=== PATIENT | female | born 1955 | race Caucasian/White ===

== ENCOUNTER 2018-05-22 07:45 | Observation (INO) | payer BC, OTHER ==
[2018-05-05 16:01] VITALS: BMI 33.0
[2018-05-12 09:28] VITALS: BMI 33.0
--- NOTE | 2018-05-12 09:58 | PAT Medication Instructions ---
Service Date May 12, 2018. Current Home Medication List Alendronate/Cholecalciferol (Fosamax+D 70MG/2800 Iu), 1 TABLET PO WK Aspirin (Aspirin Ec), 81 MG PO QAM Atorvastatin (Lipitor), 10 MG PO QAM Baclofen (Lioresal), 10 MG PO TID PRN for PRN Cholecalciferol (Vitamin D 1000 Unit), 2,000 INTER.UNIT PO QAM Hydrocodone/Acetaminophen 10MG/325MG ([place] 10MG/325MG), 1 TAB PO TID PRN for N Ibuprofen (Motrin), 800 MG PO PRN PRN for Pain Lisinopril (Zestril), 20 MG PO QAM Ondansetron Hcl (Zofran), 5 ML PO Q4H PRN for Nausea Venlafaxine Hcl (Venlafaxine Hcl Er), 150 MG PO QAM Venlafaxine Hcl (Effexor Xr), 75 MG PO QAM Medication Instructions For Your Scheduled Surgery - Check with surgeon for instructions: Ibuprofen (Motrin), 800 MG PO PRN PRN for Pain - Continue as directed: Alendronate/Cholecalciferol (Fosamax+D 70MG/2800 Iu), 1 TABLET PO WK - Hold the following medications the morning of surgery: Lisinopril (Zestril), 20 MG PO QAM Baclofen (Lioresal), 10 MG PO TID PRN for PRN Cholecalciferol (Vitamin D 1000 Unit), 2,000 INTER.UNIT PO QAM - Take the following medications the morning of surgery with a sip of water: Aspirin (Aspirin Ec), 81 MG PO QAM Atorvastatin (Lipitor), 10 MG PO QAM Hydrocodone/Acetaminophen 10MG/325MG ([place] 10MG/325MG), 1 TAB PO TID PRN for N (okay to take up to 4 hours prior to surgery if needed) Ondansetron Hcl (Zofran), 5 ML PO Q4H PRN for Nausea (if needed) Venlafaxine Hcl (Venlafaxine Hcl Er), 150 MG PO QAM Venlafaxine Hcl (Effexor Xr), 75 MG PO QAM Buspirone - Take the following medications as scheduled the night before surgery: Ondansetron Hcl (Zofran), 5 ML PO Q4H PRN for Nausea Hydrocodone/Acetaminophen 10MG/325MG ([place] 10MG/325MG), 1 TAB PO TID PRN for N Baclofen (Lioresal), 10 MG PO TID PRN for PRN (if needed) Buspirone If you have any questions please call us at [phone] or [phone] or [phone]
[2018-05-12 10:05] LABS: BASO % 0.4 %; BASO ABS # 0.04 K/uL (0-0.2); EOS % 3.4 %; EOS ABS # 0.36 K/uL (0-0.5); HEMATOCRIT 42.8 % (37-47); HEMOGLOBIN 14.3 g/dL (12.0-16.0); IG# 0.02 K/uL (0.00-0.02); LYMPH % 26.8 %; LYMPH ABS # 2.81 K/uL (1.2-3.4); MEAN CELL VOLUME 93.9 fL (80-100); MEAN CORPUSCULAR HEMOGLOBIN 31.4 pg (25-34); MEAN CORPUSCULAR HGB CONC 33.4 g/dl (32-36); MEAN PLATELET VOLUME 9.1 fL (7.4-10.4); MONO % 7.8 %; MONO ABS # 0.82 K/uL (0.11-0.59); NEUT % 61.4 %; NEUT ABS # 6.44 K/uL (1.4-6.5); PLATELET COUNT 345 K/uL (130-400); RED CELL DISTRIBUTION WIDTH CV 13.4 % (11.5-14.5); WHITE BLOOD COUNT 10.49 K/uL (4.8-10.8)
[2018-05-12 10:13] LABS: INR 0.9 (0.9-1.1); PTT PATIENT 24.6 SECONDS (21.0-31.0)
--- NOTE | 2018-05-12 10:18 | DIAGNOSTIC IMAGING REPORT ---
CHEST 2 VIEWS ROUTINE CLINICAL HISTORY: PAT preoperative evaluation COMPARISON STUDY: 09/21/2013 FINDINGS: Unchanged postoperative change to the cervical and thoracic spine. Lungs are clear. Diaphragms are smooth. Kyphoplasty is noted in the low thoracic region. IMPRESSION: Chronic and postoperative change. No acute process. The above report was generated using voice recognition software. It may contain grammatical, syntax or spelling errors. Electronically signed by: Joey Vang M.D. 05/12/2018 10:17 AM Dictated Date/Time: 05/12/2018 10:16 AM
[2018-05-12 12:25] LABS: CALCIUM 8.8 mg/dl (8.5-10.1); CREATININE 0.56 mg/dl (0.60-1.20); POTASSIUM 4.3 mmol/L (3.5-5.1)
[~2018-05-22] VITALS: Ht 157.5 cm; Wt 82.7 kg
[2018-05-22] VITALS (10 sets, daily range): BP systolic 117–161; BP diastolic 70–95; PULSE 70–87; TEMP 36.4–36.9; O2SAT 95–100; Ht 157.5 cm; Wt 82.7 kg
[~2018-05-22 07:45] MED LIST: ACETAMINOPHEN 500 MG TAB PO SCH; ASPI81TA28 PO; ATOR10TA82 PO; BACL10TA PO; CEFAZOLIN 2000MG IV PUSH 15 ML IV SCH; CHOL100027 PO; CLINDAMYCIN 600 MG/54 ML D5W 54 ML IV SCH; CeleBREX 200 MG CAP PO SCH; FSMD/70 PO; GABAPENTIN 600 MG PO SCH; HYDR-4079 PO; IBUP-1428 PO; LACTATED RINGER'S 1000ML 1,000 ML IV SCH; LISI-725 PO; ONDA10SO PO; VENL150T33 PO; VENL75CA88 PO
[2018-05-22] MEDS ORDERED: BUSP15TA70 PO (08:35)
[2018-05-22] MEDS ORDERED: ONDANSETRON INJ 2 MG/ML 2 ML VIAL ONE ×2 (09:18→11:00)
[2018-05-22] MEDS ORDERED: NURSING VERBAL MED ORDER ONE (09:30)
[2018-05-22] MEDS ORDERED: MIDAZOLAM HCL 1 MG/ML 2ML VIAL ONE (09:32)
[2018-05-22] MEDS ORDERED: FENTANYL CITRATE INJ 50 MCG/1 ML 2 ML VIAL ONE ×4 (09:32→11:30)
--- NOTE | 2018-05-22 09:54 | History & Physical Bridge Note ---
H&P Re-Evaluation Bridge Note: I have examined the patient, reviewed the History & Physical and in the interval since the performance of the History & Physical I have noted the following changes of clinical significance: No changes noted
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
[2018-05-22] MEDS ORDERED: PROMETHAZINE HCL INJ 6.25 MG in SODIUM CHLORIDE 0.9% 50ML 50 ML IV PRN (10:00)
[2018-05-22] MEDS ORDERED: ONDANSETRON INJ 2 MG/ML 2 ML VIAL IV PRN (10:00)
[2018-05-22] MEDS ORDERED: ATROPINE SULFATE 0.1 MG/ML 5ML SYR IV PRN (10:00)
[2018-05-22] MEDS ORDERED: EpHEDrine SULFATE INJ 50 MG/ML AMP IV PRN (10:00)
[2018-05-22] MEDS ORDERED: BUPIVACAINE/EPINEPHRINE 0.5% MPF 1:200,000 30 ML VIAL ONE (10:12)
[2018-05-22] MEDS ORDERED: BACITRACIN 50000 UNIT VIAL ONE (10:13)
[2018-05-22] MEDS ORDERED: HYDROmorphone INJ 2 MG/ML SYR/VIAL ONE ×3 (10:16→11:33)
[2018-05-22] MEDS ORDERED: SODIUM CHLORIDE 0.9% PF 50 ML VIAL ONE (10:43)
[2018-05-22] MEDS ORDERED: BUPIVACAINE 0.5 % 5 MG/1 ML PF 10ML VIAL ONE ×2 (10:43→10:52)
[2018-05-22] MEDS ORDERED: BUPIVACAINE LIPOSOME 1/3% 266 MG/20 ML VIAL ONE (10:43)
[2018-05-22] MEDS ORDERED: PROPOFOL IV EMULSION 10 MG/ML 20 ML VIAL ONE (11:00)
[2018-05-22] MEDS ORDERED: LIDOCAINE HCL 2% 2 ML VIAL (20MG/ML) ONE (11:00)
[2018-05-22] MEDS ORDERED: DEXAMETHASONE SOD INJ 4 MG/ML VIAL ONE (11:00)
[2018-05-22] MEDS ORDERED: PHENYLEPHRINE 100MCG/ML 5ML SYR ONE ×2 (11:00→11:33)
[2018-05-22] MEDS ORDERED: FLOSEAL HEMOSTATIC MATRIX 10ML TOP ONE (11:15)
[2018-05-22] MEDS ORDERED: ARTIFICIAL TEARS OP OINT 3.5 GM TUBE ONE (11:30)
[2018-05-22] MEDS ORDERED: DO NOT ADMINISTER FLU VACCINE PRN (11:30)
[2018-05-22] MEDS ORDERED: LORAZEPAM 1 MG TAB PO PRN (11:30)
[2018-05-22] MEDS ORDERED: LORAZEPAM INJ 1 MG in SYRINGE 0 ML IV PRN (11:30)
[2018-05-22] MEDS ORDERED: DO NOT ADMINISTER PNEUMOCOCCAL VACCINE PRN (11:30)
[2018-05-22] MEDS ORDERED: ACETAMINOPHEN 500 MG TAB PO PRN (11:30)
[2018-05-22] MEDS ORDERED: MAGNESIUM HYDROXIDE SUSP 30 ML UDC PO PRN (11:30)
--- NOTE | 2018-05-22 11:30 | [facility] Operative Report ---
Operative Report Operative Date May 22, 2018. Pre-Operative Diagnosis Lumbar Spinal Stenosis with Neurogenic Claudication L3-L4 Post-Operative Diagnosis Lumbar Spinal Stenosis with Neurogenic Claudication L3-L4 Procedure(s) Performed 1. Lumbar decompression bilateral medial facetectomies L3-4. #2 placement of Coflex 14 mm in height in the interlaminar space at L3-4. Surgeon Dr. Yasmine Arias Activity Manager Surgeon(s) Daniela Phan PA-C Estimated Blood Loss 50ml Findings Severe spinal stenosis Specimens none per surgeon Anesthesia Type General Description of Procedure Patient was met with preoperatively case discussed all questions addressed. After informed consent obtained patient was taken to the operative suite underwent intubation and placed in the prone position on the Abelardo table on top of the [place] frame. All bony prominences were well-padded eyes inspected to ensure no external pressure placed upon but this point the lumbar spine was prepped and draped in normal sterile fashion. Sharp dissection with the assistance of Bovie cautery was performed down to and exposing the interlaminar space at L3-4 bilaterally. Then performed a midline decompression clinic bilateral medial facetectomies addressing severe central lateral recess stenosis as well as epidural lipomatosis. After this was complete placed a 14 mm Coflex in the interlaminar space at L3-4. It was crimped into position. I then injected approximately 80 cc of Exparel into the musculature. A 10 round MARI drain was then inserted. Incision was then closed with 1 Vicryl fascia 2-0 Vicryl subcutaneously and 4 Monocryl for fast closure Steri-Strips sterile dressings placed. Patient weakened taken to PACU in stable condition. Please note Daniela Ornelas was present throughout the entire procedure involved in patient positioning complex portions of the surgery and final skin closure. I attest to the content of the Intraoperative Record and any orders documented therein. Any exceptions are noted below.
[2018-05-22] MEDS ORDERED: GLYCOPYRROLATE INJ 0.2 MG/ML VIAL ONE (11:33)
[2018-05-22] MEDS ORDERED: KETOROLAC TROMETHAMINE 30 MG/ML VIAL ONE (11:33)
[2018-05-22] MEDS ORDERED: NEOSTIGMINE METHYLSULFATE 1 MG/ML 10ML VIAL ONE (11:33)
[2018-05-22] MEDS ORDERED: ESMOLOL HCL 10 MG/ML 10 ML VIAL ONE (11:33)
[2018-05-22] MEDS: FENTANYL CITRATE INJ 50 MCG/1 ML 2 ML VIAL IV PRN ×3 (11:58→12:12)
--- NOTE | 2018-05-22 12:14 | Anesthesiology Progress Note ---
Anesthesia Post Op Note Date & Time May 22, 2018 at 12:14 Vital Signs Pain Intensity: 8 Vital Signs Past 12 Hours Date Time Temp Pulse Resp B/P (MAP) Pulse Ox O2 Delivery O2 Flow Rate FiO2 05/22/18 08:42 36.9 82 18 161/95 96 Room Air Notes Mental Status: alert / awake / arousable, participated in evaluation Pt Amnestic to Procedure: Yes Nausea / Vomiting: adequately controlled Pain: adequately controlled Airway Patency, RR, SpO2: stable & adequate BP & HR: stable & adequate Hydration State: stable & adequate Anesthetic Complications: no major complications apparent
[2018-05-22] MEDS ORDERED: HYDROmorphone INJ 1 MG/ML SYR ONE (13:10)
[2018-05-22] MEDS ORDERED: RXC5 PO (14:25)
--- NOTE | 2018-05-22 14:25 | Discharge Instructions ---
Discharge Instructions Date of Service May 22, 2018. Admission Reason for Admission: Lumbar Spinal Stenosis Discharge Discharge Diagnosis / Problem: lumbar stenosis Discharge Goals Goal(s): Improve function Activity Recommendations Activity Limitations: per Instructions/Follow-up section . Instructions / Follow-Up Instructions / Follow-Up ACTIVITY RECOMMENDATIONS: SELF CARE INSTRUCTIONS AFTER THORACIC/LUMBAR FUSIONS 1. You may walk to your tolerance. It is good exercise for your legs and back. Expect some back and intermittent leg aches and pains. 2. You may perform "counter-top" level activities (make a sandwich, lisandro with a project, etc.). 3. No bending or lifting of more than 10 pounds or back twisting of any nature (roll like a log when turning in bed). 4. You may ride in a car for 20-30 minutes at a time. No driving until after your first visit with your doctor. 5. Frequent changes of position and restricting sitting to 30 minutes at a time will help limit the amount of back spasms and stiffness you may experience. 6. You may discontinue the use of ambulatory aids (cane, crutches, etc.) once your strength and confidence allow. 7. You may packaging coordinator the shower and let water strike your incision when you arrive home at least once daily. Do not take a tub bath, sit in a hot tub or go into a swimming pool until after your first recheck in the office. SPECIAL CARE INSTRUCTIONS: VERY IMPORTANT TO READ AND REVIEW A. Your surgical incision has been closed with a cosmetic suture under the skin that will dissolve in about 6 weeks. In 14 days, you can use a pair of clean scissors and cut the suture that is left outside of the skin at the ends of your incision. 1. The small skin tapes can be removed 7 days after surgery if they have not fallen off by that point. 2. You may keep the wound open to air as much as possible to promote healing after post-op day number 5 unless told otherwise by your doctor. 3. If you think the wound looks like it is becoming infected (redness or worsening drainage) and/or you are experiencing fever, chill or worsening back pain and muscle spasms, contact the office so that we may evaluate you as soon as possible. B. Complications are uncommon, but please contact us if you have any signs or symptoms of: 1. wound infection (fever higher than 102.5 degrees F, redness, separation of wound, drainage, or increasing pain from the incision) 2. blood clots in legs (pain, swelling, redness and warmth in legs) 3. urinary tract infection (fever higher than 102.5 degrees F, burning upon urination or increased frequency of urination) 4. nerve problems (inability to walk on your toes or heels, numbness, loss of bowel or bladder control) 5. any other symptoms that concern you C. Please call the office at if you have any concerns or questions about your operation or recovery. D. No smoking! Smoking drastically decreases the chance of a solid fusion. E. Do not take any anti-inflammatory medications (Indocin, Advil, Motrin, Aspirin, Naprosyn, etc.) as these may inhibit the chance of a solid fusion. Tylenol is okay to take for pain. MANAGING PAIN AFTER SPINAL SURGERY 1. Narcotic medication is intended for short-term use and will be provided for surgical pain. Surgical pain usually lasts for a period of 4-6 weeks. Narcotic medication includes Percocet, Vicodin, Darvocet, Tylenol #3 or Lortab. 2. Longer-term pain is more appropriately treated with non-narcotic medication such as Tylenol ES. 3. Muscle spasm is not appropriately treated with narcotics. Muscle relaxers such as Soma, Flexeril or Skelaxin can be used along with Tylenol ES. 4. Remember that we all live with some "aches and pains". This is not unusual or uncommon after an injury or as we get older. a. Back pain is expected and may include muscle spasms for 4 to 6 weeks after surgery. The pain should gradually improve. If the pain worsens for no apparent reason, please contact the office. b. Intermittent leg pain may also be experienced and should not be concerned about unless it worsens for no apparent reason. If so, please contact the office. 5. We will provide appropriate medication within the normal guidelines of their prescribed use. We will also be very cautious and aware of potential abuse and extended duration of patients' medication needs. a. Pain medications are for your comfort and to assist with sleep and rest so that the tissue can heal. They are not provided in order to return to normal activity and should not be used through the day. To do so or worsening pain at night can result from ongoing tissue damage and development of tolerance to the prescribed medicine. 6. Please allow 2-3 days to process refills. Prescriptions will not be mailed but must be picked up at the office. FOLLOW UP VISIT: Keep your scheduled follow-up appointment. Any questions, please call the office at . Current Hospital Diet Patient's current hospital diet: Regular Diet Discharge Diet Recommended Diet: Regular Diet Procedures Procedures Performed: 1. Lumbar decompression bilateral medial facetectomies L3-4. #2 placement of Coflex 14 mm in height in the interlaminar space at L3-4. Pending Studies Studies pending at discharge: no Medical Emergencies . Who to Call and When: Medical Emergencies: If at any time you feel your situation is an emergency, please call 911 immediately. . Non-Emergent Contact Non-Emergency issues call your: Primary Care Provider . "Provider Documentation" section prepared by Juan David Arias. .
--- NOTE | 2018-05-22 14:26 | Discharge Instructions ---
Discharge Instructions Date of Service May 22, 2018. Admission Reason for Admission: Lumbar Spinal Stenosis Discharge Discharge Diagnosis / Problem: lumbar stenosis Discharge Goals Goal(s): Improve function Activity Recommendations Activity Limitations: per Instructions/Follow-up section . Instructions / Follow-Up Instructions / Follow-Up ACTIVITY RECOMMENDATIONS: SELF CARE INSTRUCTIONS AFTER A LAMINECTOMY 1. No prolonged sitting (less than 30 minutes for the first 3 weeks after surgery). 2. No bending, lifting more than 5 pounds, or twisting (roll like a log when turning in bed). 3. You may shower 3 days after surgery if no drainage from wound. Thoroughly dry wound. Do not soak in the tub. 4. Please walk as much as you can for exercise. Gradually increase the distance that you walk as your endurance increases. 5. You may drive in 7-10 days if you are comfortable and no longer requiring pain medications. SPECIAL CARE INSTRUCTIONS: VERY IMPORTANT TO READ AND REVIEW A. Your surgical incision has been closed with a cosmetic suture under the skin that will dissolve in about 6 weeks. In 14 days, you can use a pair of clean scissors and cut the suture that is left outside of the skin at the ends of your incision. B. Complications are uncommon, but please contact us if you have any signs or symptoms of: 1. wound infection (fever higher than 102.5 degrees F, redness, separation of wound, drainage, or increasing pain from the incision) 2. blood clots in legs (pain, swelling, redness and warmth in legs) 3. urinary tract infection (fever higher than 102.5 degrees, burning upon urination or increased frequency of urination) 4. nerve problems (inability to walk on your toes or heels, numbness, loss of bowel or bladder control) 5. any other symptoms that concern you. C. Please call the office at if you have any concerns or questions about your operation or recovery. MANAGING PAIN AFTER SPINAL SURGERY 1. Narcotic medication is intended for short-term use and will be provided for surgical pain. Surgical pain usually lasts for a period of 4-6 weeks. Narcotic medication includes Percocet, Vicodin, Darvocet, Tylenol #3 or Lortab. 2. Longer-term pain is more appropriately treated with non-narcotic medication such as Tylenol ES. 3. Muscle spasm is not appropriately treated with narcotics. Muscle relaxers such as Soma, Flexeril or Skelaxin can be used along with Tylenol ES. 4. Remember that we all live with some "aches and pains". This is not unusual or uncommon after an injury or as we get older. 5. We will provide appropriate medication within the normal guidelines of their prescribed use. We will also be very cautious and aware of potential abuse and extended duration of patients' medication needs. 6. Please allow 2-3 days to process refills. Prescriptions will not be mailed but must be picked up at the office. FOLLOW UP VISIT: Keep your scheduled follow-up appointment. Any questions, please call the office at . Current Hospital Diet Patient's current hospital diet: Regular Diet Discharge Diet Recommended Diet: Regular Diet Procedures Procedures Performed: 1. Lumbar decompression bilateral medial facetectomies L3-4. #2 placement of Coflex 14 mm in height in the interlaminar space at L3-4. Pending Studies Studies pending at discharge: no Medical Emergencies . Who to Call and When: Medical Emergencies: If at any time you feel your situation is an emergency, please call 911 immediately. . Non-Emergent Contact Non-Emergency issues call your: Primary Care Provider . "Provider Documentation" section prepared by Juan David Arias. .
--- NOTE | 2018-05-22 14:31 | DIAGNOSTIC IMAGING REPORT ---
INTRAOPERATIVE RADIOGRAPHS CLINICAL HISTORY: L3-L4 spinal fusion. Fluoroscopy time: 8 seconds. FINDINGS: 2 spot fluoroscopic views of the lumbar spine are presented. A coflex implant device is seen posteriorly at the L3-L4 level. The orthopedic hardware appears intact. IMPRESSION: Intraoperative image from lumbar spinal surgery as above. Electronically signed by: Nikolas Ricks M.D. 05/22/2018 2:29 PM Dictated Date/Time: 05/22/2018 2:28 PM
[2018-05-22] MEDS: SODIUM CHLORIDE 0.9% 1000ML 1,000 ML IV SCH (14:37)
[2018-05-22] MEDS ORDERED: IV FLUIDS COMPLETED PRN (14:45)
[2018-05-22] MEDS: KETOROLAC TROMETHAMINE 30 MG/ML VIAL IV. PRN ×2 (15:23→21:31)
[2018-05-22] MEDS: HYDROmorphone INJ 1 MG/ML SYR IV PRN ×2 (16:20→19:24)
[2018-05-22] MEDS: CLINDAMYCIN IV 600 MG in DEXTROSE 5% 50ML 50 ML IV SCH (18:35)
[2018-05-22] MEDS: BACLOFEN 10 MG TAB PO PRN (19:30)
[2018-05-22] MEDS: ONDANSETRON INJ 2 MG/ML 2 ML VIAL IV PRN (20:29)
[2018-05-22] MEDS: BusPIRone 15 MG TAB PO SCH (20:30)
[2018-05-22] MEDS: DOCUSATE SODIUM 100 MG CAP PO SCH (20:30)
[2018-05-22] MEDS: OXYCODONE HCL IR 5 MG TAB (IMMEDIATE RELEASE) PO PRN (23:13)
[2018-05-23] MEDS: HYDROmorphone INJ 1 MG/ML SYR IV PRN ×3 (00:35→20:06)
[2018-05-23] MEDS: SODIUM CHLORIDE 0.9% 1000ML 1,000 ML IV SCH (02:06)
[2018-05-23] MEDS: CLINDAMYCIN IV 600 MG in DEXTROSE 5% 50ML 50 ML IV SCH ×2 (02:06→09:01)
[2018-05-23 02:51] VITALS: BP 160/83; PULSE 92; TEMP 36.7; O2SAT 95
[2018-05-23] MEDS: OXYCODONE HCL IR 5 MG TAB (IMMEDIATE RELEASE) PO PRN ×5 (03:32→23:07)
[2018-05-23] MEDS: KETOROLAC TROMETHAMINE 30 MG/ML VIAL IV. PRN ×2 (03:32→16:07)
[2018-05-23 06:59] VITALS: BP 152/80; PULSE 77; TEMP 36.9; O2SAT 98
--- NOTE | 2018-05-23 08:14 | Anesthesiology Progress Note ---
Anesthesia Post Op Note Date & Time May 23, 2018 at 08:14 Vital Signs Vital Signs Past 12 Hours Date Time Temp Pulse Resp B/P (MAP) Pulse Ox O2 Delivery O2 Flow Rate FiO2 05/23/18 06:59 36.9 77 18 152/80 (104) 98 Room Air 05/23/18 02:51 36.7 92 17 160/83 (108) 95 Room Air 05/22/18 23:20 Room Air 05/22/18 22:54 36.6 74 16 138/72 (94) 95 Room Air Notes Mental Status: alert / awake / arousable, participated in evaluation Pt Amnestic to Procedure: Yes Nausea / Vomiting: adequately controlled Pain: adequately controlled Airway Patency, RR, SpO2: stable & adequate BP & HR: stable & adequate Hydration State: stable & adequate Anesthetic Complications: no major complications apparent
--- NOTE | 2018-05-23 08:35 | Progress Note ---
Progress Note Date of Service May 23, 2018. Progress Note Patient having considerable back pain today. Still some right anterior thigh pain with hip flexion. Otherwise her vital signs are stable. Neurologic she is intact testing. Assessment status post decompression. Plan at this time will DC the drain today initiate physical therapy anticipate home tomorrow.
[2018-05-23] MEDS: VENLAFAXINE HCL XR 150 MG CAPXR PO SCH (09:00)
[2018-05-23] MEDS: VENLAFAXINE HCL XR 75 MG CAPXR PO SCH (09:00)
[2018-05-23] MEDS: BusPIRone 15 MG TAB PO SCH ×2 (09:00→21:58)
[2018-05-23] MEDS: ATORVASTATIN 10 MG TAB PO SCH (09:00)
[2018-05-23] MEDS: LISINOPRIL 20 MG TAB PO SCH (09:01)
[2018-05-23] MEDS: DOCUSATE SODIUM 100 MG CAP PO SCH ×2 (09:09→21:58)
[2018-05-23 10:57] VITALS: BP 149/82; PULSE 72; TEMP 36.9; O2SAT 95
[2018-05-23 15:41] VITALS: BP 100/59; PULSE 73; TEMP 36.9; O2SAT 96
[2018-05-23] MEDS: ONDANSETRON INJ 2 MG/ML 2 ML VIAL IV PRN (15:46)
[2018-05-23 16:00] VITALS: O2SAT 96
[2018-05-23] MEDS: BACLOFEN 10 MG TAB PO PRN (20:07)
[2018-05-23 22:50] VITALS: BP 120/77; PULSE 77; TEMP 36.9; O2SAT 97
[2018-05-24] MEDS: BACLOFEN 10 MG TAB PO PRN ×2 (04:40→08:53)
[2018-05-24] MEDS: OXYCODONE HCL IR 5 MG TAB (IMMEDIATE RELEASE) PO PRN ×2 (04:41→11:24)
[2018-05-24] MEDS ORDERED: BISACODYL 5 MG TABEC PO PRN (06:00)
[2018-05-24] MEDS ORDERED: BISACODYL 10 MG SUPP PR PRN (06:00)
[2018-05-24 07:09] VITALS: BP 181/85; PULSE 73; TEMP 36.9; O2SAT 96
[2018-05-24] MEDS: HYDROmorphone INJ 1 MG/ML SYR IV PRN (07:55)
[2018-05-24] MEDS: ATORVASTATIN 10 MG TAB PO SCH (08:53)
[2018-05-24] MEDS: DOCUSATE SODIUM 100 MG CAP PO SCH (08:53)
[2018-05-24] MEDS: LISINOPRIL 20 MG TAB PO SCH (08:53)
[2018-05-24] MEDS: BusPIRone 15 MG TAB PO SCH (08:53)
[2018-05-24] MEDS: VENLAFAXINE HCL XR 150 MG CAPXR PO SCH (08:53)
[2018-05-24] MEDS: VENLAFAXINE HCL XR 75 MG CAPXR PO SCH (08:53)
[2018-05-24 10:33] VITALS: BP 181/85; PULSE 73; TEMP 36.9; O2SAT 96
--- NOTE | 2018-05-24 13:25 | Discharge Summary ---
Orthopedic Discharge Summary Admission Date/Reason May 22, 2018 at 11:33 Lumbar Spinal Stenosis. Discharge Date/Disposition May 24, 2018 Home Diagnosis Principal Diagnosis: Lumbar spinal stenosis Admission Physical Exam As per Admitting History & Physical. Hospital Course Patient underwent lumbar decompression tolerated this well was taken to the orthopedic floor postoperatively. Postop day #1 she was up and amatory physical therapy progress nicely and subsequently was discharged home on postop day #2 discharge orders and instructions can be found in the chart for further review. Discharge Instructions Please refer to the electronic Patient Visit Report (Discharge Instructions) for additional information.
[2018-05-25] MEDS ORDERED: POLYETHYLENE (MIRALAX) 17 GM PACK PO SCH (09:00)
== END 2018-05-24 11:46 | disposition home or self-care (01) ==
LOC: C.ACU 07:45 → C.3E 11:33 → ENRESERV 12:25
PROVIDERS: ADMIT Orthopaedic Surgery Orthopaedic Surgery of the Spine; ATTEND Orthopaedic Surgery Orthopaedic Surgery of the Spine
DX: M48.061 Spinal stenosis, lumbar region without neurogenic claudication (principal); J44.9 Chronic obstructive pulmonary disease, unspecified; G47.33 Obstructive sleep apnea (adult) (pediatric); M19.90 Unspecified osteoarthritis, unspecified site; E78.5 Hyperlipidemia, unspecified; F10.10 Alcohol abuse, uncomplicated; G89.4 Chronic pain syndrome; F32.9 Major depressive disorder, single episode, unspecified; Z86.010 Personal history of colon polyps; Z90.49 Acquired absence of other specified parts of digestive tract; Z90.710 Acquired absence of both cervix and uterus; Z88.0 Allergy status to penicillin

== ENCOUNTER 2018-11-10 05:57 | Observation (INO) ==
--- NOTE | 2018-10-19 09:03 | PAT Medication Instructions ---
Medication Instructions Date of Service October 19, 2018 Home Medications alendronate-vitamin D3 1 tab PO WK aspirin [Aspirin Low Dose] 81 mg PO QAM atorvastatin 10 mg PO QAM baclofen 10 mg PO TID NEEDED buspirone 15 mg PO BID cholecalciferol (vitamin D3) 2,000 unit PO QAM hydrocodone-acetaminophen 2 tab PO Q8H NEEDED ibuprofen 800 mg PO TID NEEDED lisinopril 20 mg PO QAM ondansetron HCl 4 mg PO QID NEEDED venlafaxine 75 mg PO QAM venlafaxine 150 mg PO QAM Continue as directed alendronate-vitamin D3 1 tab PO WK ASK your surgeon for instructions ibuprofen 800 mg PO TID NEEDED ASK your prescriber and surgeon aspirin [Aspirin Low Dose] 81 mg PO QAM DO NOT take the morning of surgery baclofen 10 mg PO TID NEEDED cholecalciferol (vitamin D3) 2,000 unit PO QAM lisinopril 20 mg PO QAM Take morning of surgery With a small sip of water, OTHERWISE NOTHING TO EAT OR DRINK AFTER MIDNIGHT: atorvastatin 10 mg PO QAM buspirone 15 mg PO BID hydrocodone-acetaminophen 2 tab PO Q8H NEEDED (stop 4 hours before surgery) ondansetron HCl 4 mg PO QID NEEDED venlafaxine 75 mg PO QAM venlafaxine 150 mg PO QAM Take evening before surgery baclofen 10 mg PO TID NEEDED buspirone 15 mg PO BID hydrocodone-acetaminophen 2 tab PO Q8H NEEDED ondansetron HCl 4 mg PO QID NEEDED Other Notes If you have any questions please call us at [phone] or [phone] or [phone] or [phone]
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
--- NOTE | 2018-10-19 12:10 | XRay Report ---
XR chest Pre-admission PA/Lat CLINICAL HISTORY: pat preoperative evaluation COMPARISON STUDY: 09/21/2013 FINDINGS: The bones soft tissues and hemidiaphragms are normal. The cardiomediastinal silhouette is n ormal. The lungs are clear. The pulmonary vasculature is normal. IMPRESSION: Negative chest. The above report was generated using voice recognition software. It may contain grammatical, syntax or spelling errors. Electronically signed by: Joey Vang M.D. 10/19/2018 12:09 PM
[2018-10-19 13:19] LABS: Basophils # (auto) 0.03 K/uL (0-0.2); Basophils % (auto) 0.3 %; Eosinophils # (auto) 0.34 K/uL (0-0.5); Eosinophils % (auto) 3.4 %; Hematocrit (blood only) 43.8 % (37-47); Hemoglobin 14.3 g/dL (12.0-16.0); Immature Granulocytes # (auto) 0.02 K/uL (0.00-0.02); Immature Granulocytes % (auto) 0.2 %; Lymphocytes # (auto) 2.93 K/uL (1.2-3.4); Mean Corpuscular Hgb Conc 32.6 g/dL (32-36); Mean Corpuscular Volume 96.3 fL (80-100); Mean Platelet Volume 9.8 fL (7.4-10.4); Monocytes # (auto) 0.74 K/uL (0.11-0.59); Monocytes % (auto) 7.3 %; Neutrophils # (auto) 6.04 K/uL (1.4-6.5); Neutrophils % (auto) 59.8 %; Platelet Count 285 K/uL (130-400); RDW Coefficient of Variation 13.5 % (11.5-14.5); Red Blood Count 4.55 M/uL (4.2-5.4)
[2018-10-19 13:23] LABS: Appearance Urine Clear (Clear); Bacteria Urine Automated Negative (Negative); Bilirubin Urine Negative (Negative); Cast Urine Automated 0 /lpf (0-5); Color Urine Yellow; Glucose Urine UA Negative (Negative); Ketones Urine Negative (Negative); Leukocyte Esterase Urine Trace (Negative); Nitrite Urine Negative (Negative); Protein Urine Negative (Negative); Specific Gravity Urine 1.019 (1.000-1.030); Urobilinogen Urine Negative (Negative)
[2018-10-19 13:30] LABS: Calcium 9.1 mg/dl (8.5-10.1); Creatinine Clr Calc Pharmacy 96.4 ml/min; Est GFR (African American) 110.4; Est GFR (Non-African American) 95.3; Potassium 4.2 mmol/L (3.5-5.1)
[2018-11-10] MEDS ORDERED: ACETAMINOPHEN 500 MG TAB PO SCH (06:00)
[2018-11-10] MEDS ORDERED: LACTATED RINGER'S 1,000 ML IV SCH (06:00)
[2018-11-10] MEDS ORDERED: GABAPENTIN 300 MG x 2 PO SCH (06:00)
[2018-11-10] MEDS ORDERED: CeleBREX 200 MG CAP PO SCH (06:00)
[2018-11-10] MEDS ORDERED: CLINDAMYCIN 600 MG/54 ML BAG IV SCH (06:00)
[2018-11-10] MEDS ORDERED: HYDROmorphone INJ 2 MG/ML SYR/VIAL ONE (06:28)
[2018-11-10] MEDS ORDERED: fentaNYL citrate 100 MCG/2 ML VIAL ONE ×4 (06:28→08:53)
[2018-11-10] MEDS ORDERED: MIDAZOLAM HCL 1 MG/ML 2ML VIAL ONE (06:28)
[2018-11-10] MEDS ORDERED: LIDOCAINE HCL 2% 2 ML VIAL/AMP(20MG/ML) INFIL ONE (06:29)
[2018-11-10] MEDS ORDERED: ONDANSETRON INJ 2 MG/ML 2 ML VIAL ONE (06:29)
[2018-11-10] MEDS ORDERED: PROPOFOL IV EMULSION 10 MG/ML 20 ML VIAL IV ONE (06:29)
[2018-11-10] MEDS ORDERED: GLYCOPYRROLATE 0.2 MG/ML VIAL ONE (06:29)
[2018-11-10] MEDS ORDERED: NEOSTIGMINE METHYLSULFATE 1 MG/ML 10ML VIAL ONE (06:29)
[2018-11-10] MEDS ORDERED: ROCURONIUM BROMIDE 10 MG/ML 5 ML VIAL ONE (06:29)
[2018-11-10] MEDS ORDERED: DEXAMETHASONE SOD INJ 4 MG/ML VIAL ONE (06:29)
[2018-11-10] MEDS ORDERED: BACITRACIN INJ 50,000 UNIT VIAL ONE (07:03)
[2018-11-10] MEDS ORDERED: ePHEDrine sulfate 50 MG/ML AMP IV PRN (07:23)
[2018-11-10] MEDS ORDERED: HYDROmorphone INJ 2 MG/ML SYR/VIAL IV PRN (07:23)
[2018-11-10] MEDS ORDERED: ATROPINE SULFATE 0.1 MG/ML 10ML SYR IV PRN (07:23)
[2018-11-10] MEDS ORDERED: PROMETHAZINE HCL 6.25 MG in SODIUM CHLORIDE 0.9% 50 ML IV PRN (07:23)
[2018-11-10] MEDS ORDERED: ONDANSETRON INJ 2 MG/ML 2 ML VIAL IV PRN ×2 (07:23→10:39)
--- NOTE | 2018-11-10 07:35 | History & Physical Bridge Note ---
Date of Service November 10, 2018 History & Physical Bridge Note I have examined the patient, reviewed the History & Physical and in the interval since the performance of the History & Physical I have noted the following changes of clinical significance: no changes noted
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
[2018-11-10] MEDS ORDERED: PHENYLEPHRINE 100MCG/ML 5ML SYR ONE (08:25)
[2018-11-10] MEDS ORDERED: ePHEDrine sulfate 50 MG/ML SYR ONE (08:25)
[2018-11-10] MEDS ORDERED: raNITIdine HCl 25 MG/ML VIAL ONE (08:38)
[2018-11-10] MEDS ORDERED: METOCLOPRAMIDE HCL INJ 5 MG/ML 2 ML VIAL ONE (08:38)
[2018-11-10] MEDS ORDERED: FLOSEAL HEMOSTATIC MATRIX 10ML TOP ONE (08:47)
--- NOTE | 2018-11-10 08:54 | Operative Report ---
Post Operative Report Pre & Post Diagnosis Operation Date: 11/10/18 07:45 Pre-Op Diagnosis: Cervical spinal stenosis with myeloradiculopathy Post-Op Diagnosis: Same Procedure Operation Date: 11/10/18 07:45 Actual Procedures #1 anterior cervical discectomy bilateral foraminotomies C4-5 per #2 anterior cervical arthrodesis C4-5. #3 placement of globus prevail 8 mm in height at C4- 5. Surgeon Juan David Arias, Packaging Specialist Ricardo Chris Estimated Blood Loss 10 Findings Consistent with Post-Op Diagnosis Specimens None Description of Procedure Patient was met with preoperatively case discussed all questions addressed. After informed consent obtained patient was taken to the operative suite underwent intubation placed in supine position Abelardo table with a Peoples headholder. All bony prominences well-padded eyes inspected to ensure no external pressure placed upon but this point the anterior cervical spine was prepped and draped in normal sterile fashion. The assistance of fluoroscopy identified the C4-5 disc space and a transverse incision was placed along the right anterior aspect of the cervical spine overlying the region. Sharp dissection with the assistance of bipolar cautery was performed down to and exposing the anterior cervical spine at C4-5. Complete discectomy was then performed up to the uncovertebral S bilaterally. I removed all posterior annular fibers longitudinal ligament from form bilateral foraminotomies. Endplates were then burred to subcortical bleeding bone and a 8 mm globus prevail stand-alone interbody construct tapped in position. It was screwed into place and verified with fluoroscopy. Incision was then copious irrigated explored to ensure no damage to surrounding structures remaining bleeding. 10 round MARI drain inserted. The incision was then closed with 2 Vicryl in a fashion of 4 Monocryl for final skin closure Steri-Strip sterile dressings placed. Patient will continue to PACU stable condition. Please note Ricardo Chirs was present at the entire procedure involved in patient positioning complex portions of the procedure and Fransen closure. I attest to the content of the Intraoperative Record and any orders documented therein. Any exceptions are noted below.
[2018-11-10] MEDS ORDERED: ESMOLOL HCL INJ 10 MG/ML 10ML VIAL IV ONE (09:13)
[2018-11-10] MEDS: fentaNYL citrate 100 MCG/2 ML VIAL IV PRN ×4 (09:21→09:41)
--- NOTE | 2018-11-10 09:29 | Fluoroscopy Report ---
FL cervical 2-3V CLINICAL HISTORY: 63 years-old Female presenting with ACDF C4-C5. TECHNIQUE: 2 fluoroscopic image(s) recorded as part of an intraoperative procedure. COMPARISON: 04/09/2013. FINDINGS/IMPRESSION: There has been interval anterior cervical discectomy and fusion of C4-5 as well as redemonstration of anterior cervical discectomy and fusion of C5-C7. Normal anatomic alignment. Normal predental interv al. Endotracheal and nasogastric tubes project over the anterior soft tissues. Please see surgical report for further details. Fluoroscopy dosage (mGy): 0.8. Fluoroscopy time: 7.3 seconds. Number or time of fluoroscopic spot images: 0. Electronically signed by: Akil Kiser M.D. 11/10/2018 9:28 AM
--- NOTE | 2018-11-10 10:05 | Anesthesiology Progress Note ---
Date of Service November 10, 2018 Anesthesia Post Procedure Vital Signs Vital Signs: Temp Pulse Pulse Resp BP Pulse Ox 11/10/18 09:55 36.4 C L 79 18 124/69 97 11/10/18 09:45 79 14 132/66 99 11/10/18 09:35 71 14 122/69 99 11/10/18 09:25 71 16 133/83 100 11/10/18 09:15 83 16 138/75 96 11/10/18 09:08 36.0 C L 84 14 139/72 96 11/10/18 06:39 36.8 C 76 18 129/76 98 Pain Intensity Anterior Neck: Pain Intensity: 4 Notes Mental Status: alert / awake / arousable Patient Amnestic to Procedure: Yes Nausea / Vomiting: adequately controlled Pain: adequately controlled Airway Patency, RR, SpO2: stable & adequate BP & HR: stable & adequate Hydration State: stable & adequate Anesthetic Complications: no major complications apparent
[2018-11-10] MEDS ORDERED: RACEPINEPHRINE 2.25% NEBU SOLN 0.5 ML VIAL INH PRN (10:39)
[2018-11-10] MEDS ORDERED: LORazepam 0.5 MG/1 ML VIAL IV PRN (10:39)
[2018-11-10] MEDS ORDERED: HYDROCODONE/ACETAMINOPHEN 10/325 TAB PO PRN (10:39)
[2018-11-10] MEDS ORDERED: NON-FORMULARY MEDICATION (Venlafaxine Hcl 75 MG) PO SCH (10:39)
[2018-11-10] MEDS ORDERED: DiphenhydrAMINE HCL 50 MG/ML VIAL IV PRN (10:39)
[2018-11-10] MEDS ORDERED: DO NOT ADMINISTER PNEUMOCOCCAL VACCINE PRN (10:39)
[2018-11-10] MEDS ORDERED: LORazepam 0.5 MG TAB PO PRN (10:39)
[2018-11-10] MEDS ORDERED: MAGNESIUM HYDROXIDE SUSP 30 ML UDC PO PRN (10:39)
[2018-11-10] MEDS ORDERED: ONDANSETRON 4 MG TAB PO PRN (10:39)
[2018-11-10] MEDS ORDERED: DO NOT ADMINISTER FLU VACCINE PRN (10:39)
[2018-11-10] MEDS ORDERED: ACETAMINOPHEN 1,000 MG/100 ML VIAL IV PRN (10:39)
[2018-11-10] MEDS ORDERED: OXYCODONE HCL IR 5 MG TAB (IMMEDIATE RELEASE) PO PRN (10:39)
[2018-11-10] MEDS ORDERED: DEXAMETHASONE SOD PHOSPHATE 8 MG in SYRINGE 0 ML IV PRN (10:39)
[2018-11-10] MEDS ORDERED: NALOXONE HCL 0.4 MG/1 ML VIAL/CARP IV PRN (10:39)
[2018-11-10] MEDS ORDERED: SODIUM CHLORIDE 0.9% 1000ML 1,000 ML IV SCH (11:00)
[2018-11-10] MEDS ORDERED: SCOPOLAMINE 1.5 MG TDSY TD SCH (11:00)
[2018-11-10] MEDS: HYDROmorphone INJ 0.5 MG/0.5 ML SYR IV PRN ×2 (11:10→18:38)
[2018-11-10] MEDS: ASPIRIN 81 MG ECTAB PO SCH (11:56)
[2018-11-10] MEDS: BusPIRone 15 MG TAB PO SCH ×2 (11:56→20:59)
[2018-11-10] MEDS: DOCUSATE SODIUM 100 MG CAP PO SCH ×2 (11:56→20:59)
[2018-11-10] MEDS ORDERED: LARYING-O-JET KIT (LTA) ONE (12:24)
[2018-11-10] MEDS: OXYCODONE HCL IR 5 MG TAB (IMMEDIATE RELEASE) PO PRN ×3 (12:28→23:25)
[2018-11-10] MEDS: CLINDAMYCIN 600 MG in DEXTROSE 5% 50 ML IV SCH ×2 (16:34→23:25)
[2018-11-10] MEDS: CHECK SCOPOLAMINE PATCH PLACEMENT SCH ×2 (16:44→23:32)
[2018-11-10] MEDS ORDERED: COUGH DROP (SUGAR FREE) LOZ 24 LOZ/1 BOX BUCCAL PRN (17:14)
[2018-11-10] MEDS: BACLOFEN 10 MG TAB PO PRN (19:48)
[2018-11-10] MEDS ORDERED: TRAZODONE HCL 50 MG TAB PO SCH (21:00)
[2018-11-11] MEDS: HYDROmorphone INJ 0.5 MG/0.5 ML SYR IV PRN (01:32)
[2018-11-11] MEDS: OXYCODONE HCL IR 5 MG TAB (IMMEDIATE RELEASE) PO PRN (06:27)
[2018-11-11] MEDS: BACLOFEN 10 MG TAB PO PRN (07:13)
[2018-11-11] MEDS: CHECK SCOPOLAMINE PATCH PLACEMENT SCH (07:16)
[2018-11-11] MEDS: CLINDAMYCIN 600 MG in DEXTROSE 5% 50 ML IV SCH (07:56)
[2018-11-11] MEDS: ASPIRIN 81 MG ECTAB PO SCH (08:31)
[2018-11-11] MEDS: DOCUSATE SODIUM 100 MG CAP PO SCH (08:31)
[2018-11-11] MEDS: BusPIRone 15 MG TAB PO SCH (08:32)
--- NOTE | 2018-11-11 08:50 | Anesthesiology Progress Note ---
Date of Service November 11, 2018 Anesthesia Post Procedure Vital Signs Vital Signs: Temp Pulse Pulse Resp BP BP Pulse Ox 11/11/18 07:33 76 18 98 11/11/18 07:09 36.9 C 69 12 156/94 H 98 11/11/18 05:29 36.6 C 77 16 161/90 H 97 11/11/18 03:30 36.6 C 72 16 156/82 H 94 11/11/18 03:22 68 16 93 11/11/18 01:40 36.6 C 84 16 134/81 94 11/10/18 23:37 68 16 96 11/10/18 23:32 36.8 C 74 15 151/80 H 96 11/10/18 21:27 36.6 C 83 16 133/76 96 11/10/18 19:36 80 16 96 11/10/18 17:32 36.5 C 82 20 145/79 H 98 11/10/18 16:00 36.4 C L 77 20 123/74 98 11/10/18 15:52 91 H 15 100 11/10/18 13:25 36.6 C 83 18 113/72 99 11/10/18 12:24 79 16 136/81 99 11/10/18 11:25 36.3 C L 78 17 151/87 H 99 11/10/18 11:24 66 18 100 11/10/18 10:55 36.4 C L 79 18 135/80 97 11/10/18 10:25 36.6 C 74 18 127/78 97 11/10/18 10:15 78 18 130/76 99 11/10/18 10:05 82 18 125/64 99 11/10/18 09:55 36.4 C L 79 18 124/69 97 11/10/18 09:45 79 14 132/66 99 11/10/18 09:35 71 14 122/69 99 11/10/18 09:25 71 16 133/83 100 11/10/18 09:15 83 16 138/75 96 11/10/18 09:08 36.0 C L 84 14 139/72 96 Pulse Ox 11/11/18 07:33 11/11/18 07:09 11/11/18 05:29 11/11/18 03:30 11/11/18 03:22 11/11/18 01:40 11/10/18 23:37 11/10/18 23:32 11/10/18 21:27 11/10/18 19:36 11/10/18 17:32 11/10/18 16:00 97 11/10/18 15:52 11/10/18 13:25 11/10/18 12:24 11/10/18 11:25 11/10/18 11:24 11/10/18 10:55 11/10/18 10:25 97 11/10/18 10:15 11/10/18 10:05 11/10/18 09:55 11/10/18 09:45 11/10/18 09:35 11/10/18 09:25 11/10/18 09:15 11/10/18 09:08 Pain Intensity Anterior Neck: Pain Intensity: 5 Lower Back: Pain Intensity: 7 Notes Mental Status: alert / awake / arousable Patient Amnestic to Procedure: Yes Nausea / Vomiting: adequately controlled Pain: adequately controlled Airway Patency, RR, SpO2: stable & adequate BP & HR: stable & adequate Hydration State: stable & adequate Anesthetic Complications: no major complications apparent
[2018-11-11] MEDS ORDERED: LISINOPRIL 20 MG TAB PO SCH (09:00)
[2018-11-11] MEDS ORDERED: ATORVASTATIN 10 MG TAB PO SCH (09:00)
[2018-11-11] MEDS ORDERED: VENLAFAXINE HCL XR 75 MG CAPXR PO SCH (09:00)
[2018-11-11] MEDS ORDERED: KETOROLAC TROMETHAMINE 15 MG/ML VIAL IV PRN (09:47)
--- NOTE | 2018-11-11 10:21 | Discharge Summary ---
Date of Service November 11, 2018 Admission HPI Per Admitting Provider This is a 63-year-old female with chronic neck and arm symptoms. After failing extensive course of nonoperative care she is here for surgical intervention. Principal Diagnosis Cervical spinal stenosis Discharge Data Allergies Allergy/AdvReac Type Severity Reaction Status Date / Time Penicillins Allergy Unknown SWELLING Verified 11/10/18 06:31 EVERYWHERE,ITCHY Procedures Performed Operation Date: 11/10/18 07:45 Actual Procedures p C4-C5 Anterior Cervical Discectomy and Fusion(Not Applicable) - Juan David Arias DO Ordered Studies 11/10/18 07:45 FL cervical 2-3V Routine FL fluoroscopy <1hr Routine Hospital Course (1) Cervical stenosis of spinal canal: Patient is status post anterior cervical discectomy and fusion C4-5. She tolerated as well as taken to orthopedic floor postoperative. Postop day #1 MARI drain decreased appropriately arm symptoms improved. Swallowing well. No hoarseness. Subsequently discharged home. Discharge orders and instructions found in the chart for further review. Total Time Total Time Spent Total Time Spent (In Minutes): Not applicable Discharge Plan Discharge Items Patient Disposition: Home - Self-Care Reason For Visit: CERVICAL SPINAL STENOSIS Discharge Diagnosis: Cervical spinal stenosis Discharge Goals: Decrease discomfort Activity: Per 'Additional Instructions' section Non-emergency contact: Primary Care Provider Call non-emergency contact if: you have any medication questions Follow-up/Referrals: Zion Guzman [Primary Care Provider] - Diet: Regular Addtl Provider Instructions: ACTIVITY RECOMMENDATIONS: SELF CARE INSTRUCTIONS AFTER CERVICAL FUSIONS 1. No smoking. Smoking drastically decreases the chance of a solid fusion. 2. No bending, lifting more than 5 pounds, or twisting (roll like a log when turning in bed). 3. You may shower 3 days after surgery. Thoroughly dry wound. Do not soak in the tub. 4. Cervical collar: Must be worn at all times including sleeping. You may remove the brace only to bath, eat and if you are sitting in a recliner. 5. Please walk as much as you can for exercise. Gradually increase the distance that you walk as your endurance increases. SPECIAL CARE INSTRUCTIONS: VERY IMPORTANT TO READ AND REVIEW A. Do not take any anti-inflammatory medications (i.e. Indocin, Advil, Aspirin, Naprosyn, Aleve, Motrin, etc.) as these may inhibit the chance of a solid fusion. Tylenol is okay to take. B. Your surgical incision has been closed with a cosmetic suture under the skin that will dissolve in about 6 weeks. In 14 days, you can use a pair of clean scissors and cut the suture that is left outside of the skin at the ends of your incision. C. Complications are uncommon, but please contact us if you have any signs or symptoms of: 1. wound infection (fever higher than 102.5 degrees F, redness, separation of wound, drainage, or increasing pain from the incision) 2. blood clots in legs (pain, swelling, redness and warmth in legs) 3. urinary tract infection (fever higher than 102.5 degrees, burning upon urination or increased frequency of urination) 4. nerve problems (inability to walk on your toes or heels, numbness, loss of bowel or bladder control) 5. any other symptoms that concern you. D. Please call the office at if you have any concerns or questions about your operation or recovery. MANAGING PAIN AFTER SPINAL SURGERY 1. Narcotic medication is intended for short-term use and will be provided for surgical pain. Surgical pain usually lasts for a period of 4-6 weeks. Narcotic medication includes Percocet, Vicodin, Darvocet, Tylenol #3 or Lortab. 2. Longer-term pain is more appropriately treated with non-narcotic medication such as Tylenol ES. 3. Muscle spasm is not appropriately treated with narcotics. Muscle relaxers such as Soma, Flexeril or Skelaxin can be used along with Tylenol ES. 4. Remember that we all live with some "aches and pains". This is not unusual or uncommon after an injury or as we get older. 5. We will provide appropriate medication within the normal guidelines of their prescribed use. We will also be very cautious and aware of potential abuse and extended duration of patients' medication needs. 6. Please allow 2-3 days to process refills. Prescriptions will not be mailed but must be picked up at the office. FOLLOW UP VISIT: Keep your scheduled follow-up appointment. Any questions, please call the office at . Prescriptions: New oxycodone 5 mg Tablet 5 mg PO Q6H PRN (Reason: Pain) Qty: 30 RF: 0 Continue aspirin [Aspirin Low Dose] 81 mg Tablet,Delayed Release (Dr/Ec) 81 mg PO QAM RF: 0 alendronate-vitamin D3 70 mg- 2,800 unit Tablet 1 tab PO WK RF: 0 atorvastatin 10 mg Tablet 10 mg PO QAM RF: 0 baclofen 10 mg Tablet 10 mg PO TID PRN (Reason: Pain) RF: 0 buspirone 15 mg Tablet 15 mg PO BID RF: 0 hydrocodone-acetaminophen 10-325 mg Tablet 2 tab PO Q8H PRN (Reason: Pain) RF: 0 cholecalciferol (vitamin D3) 2,000 unit Tablet 2,000 unit PO QAM RF: 0 lisinopril 20 mg Tablet 40 mg PO QAM RF: 0 venlafaxine 75 mg Tablet 75 mg PO QAM RF: 0 ondansetron HCl 4 mg Tablet 4 mg PO QID PRN (Reason: Nausea) RF: 0 venlafaxine 150 mg Tablet Extended Release 24hr 150 mg PO QAM RF: 0 trazodone 50 mg Tablet 50 mg PO HS RF: 0 oxycodone 5 mg tablet 5 mg PO Q6H PRN (Reason: pain) Qty: 15 RF: 0 Discontinued ibuprofen 800 mg Tablet 800 mg PO TID PRN (Reason: Pain) RF: 0 Stand-Alone Forms: [facility] Discharge Orders: Discharge Order (Routine); Ordered 11/11/18 Ordered By: Juan David Arias Admission Data Admit Date/Time: 11/10/18 08:59 Attending Provider: Juan David Airas Admit Provider: Juan David Arias Primary Care Provider: Zion Guzman Service: Surgical Services
[2018-11-12] MEDS ORDERED: BISACODYL 5 MG TABEC PO PRN (08:58)
== END 2018-11-11 11:18 | disposition home or self-care (01) ==
LOC: ASU 05:57 → 3E 05:57

== ENCOUNTER 2018-12-28 14:02 | Observation (INO) ==
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
[2018-12-28] MEDS ORDERED: ONDANSETRON INJ 2 MG/ML 2 ML VIAL IV STA (15:31)
[2018-12-28] MEDS ORDERED: HYDROmorphone INJ 1 MG/ML SYRINGE IV STA (15:32)
[2018-12-28 15:43] LABS: Basophils # (auto) 0.01 K/uL (0-0.2); Basophils % (auto) 0.1 %; Eosinophils # (auto) 0.01 K/uL (0-0.5); Eosinophils % (auto) 0.1 %; Hematocrit (blood only) 41.8 % (37-47); Hemoglobin 14.4 g/dL (12.0-16.0); Immature Granulocytes # (auto) 0.03 K/uL (0.00-0.02); Immature Granulocytes % (auto) 0.2 %; Lymphocytes # (auto) 1.37 K/uL (1.2-3.4); Lymphocytes % (auto) 9.2 %; Mean Corpuscular Hgb Conc 34.4 g/dL (32-36); Mean Corpuscular Volume 93.7 fL (80-100); Mean Platelet Volume 9.4 fL (7.4-10.4); Monocytes # (auto) 0.24 K/uL (0.11-0.59); Monocytes % (auto) 1.6 %; Neutrophils % (auto) 88.8 %; Platelet Count 296 K/uL (130-400); RDW Coefficient of Variation 13.1 % (11.5-14.5); RDW Standard Deviation 45.1 fL (36.4-46.3); Red Blood Count 4.46 M/uL (4.2-5.4); White Blood Count 14.86 K/uL (4.8-10.8)
[2018-12-28] MEDS ORDERED: SODIUM CHLORIDE 0.9% 1000ML 1,000 ML IV SCH (15:45)
[2018-12-28 15:49] LABS: Albumin Level 3.8 gm/dl (3.4-5.0); BUN Creatinine Ratio 24.9 (10-20); Creatinine Clr Calc Pharmacy 87.9 ml/min; Est GFR (African American) 107.1; Est GFR (Non-African American) 92.4; Potassium 4.3 mmol/L (3.5-5.1)
--- NOTE | 2018-12-28 15:49 | Emergency Department Note ---
ED Visit Note I took a history from the patient and examined her. I coordinated her care with Dr. Avila. .
[2018-12-28 15:52] LABS: Bilirubin,Total 0.3 mg/dl (0.2-1); Globulin 3.6 gm/dl (2.5-4.0); Total Protein 7.4 gm/dl (6.4-8.2)
[2018-12-28 16:19] LABS: Appearance Urine Clear (Clear); Bacteria Urine Automated Negative (Negative); Bilirubin Urine Negative (Negative); Blood Urine Trace (Negative); Color Urine Yellow; Glucose Urine UA Negative (Negative); Ketones Urine Negative (Negative); Leukocyte Esterase Urine 1+ (Negative); Nitrite Urine Negative (Negative); Protein Urine Negative (Negative); Specific Gravity Urine 1.021 (1.000-1.030); Urobilinogen Urine Negative (Negative); pH Urine 6.5 (4.5-7.5)
[2018-12-28] MEDS ORDERED: VENLAFAXINE HCL 37.5 MG TAB PO STA (16:26)
[2018-12-28] MEDS ORDERED: BusPIRone 15 MG TAB PO STA (16:27)
[2018-12-28] MEDS ORDERED: LORazepam 1 MG/2 ML VIAL IV STA (17:12)
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
[2018-12-28] MEDS ORDERED: HYDROmorphone INJ 0.5 MG/0.5 ML SYR IV ONE (18:43)
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
[2018-12-28] MEDS ORDERED: HYDROmorphone INJ 0.5 MG/0.5 ML SYR ONE (19:10)
[2018-12-28] MEDS ORDERED: TRAZODONE HCL 50 MG TAB PO SCH (21:04)
[2018-12-28] MEDS ORDERED: ONDANSETRON INJ 2 MG/ML 2 ML VIAL IV PRN (21:04)
[2018-12-28] MEDS: LACTATED RINGER'S 1,000 ML IV SCH (23:01)
[2018-12-28] MEDS: ACETAMINOPHEN 1,000 MG/100 ML VIAL IV SCH (23:02)
[2018-12-28] MEDS: methylPREDNISolone 20 MG in SYRINGE 0 ML IV SCH (23:03)
[2018-12-28] MEDS: BusPIRone 15 MG TAB PO SCH (23:05)
[2018-12-28] MEDS: PANTOprazole 40 MG in SYRINGE 0 ML IV SCH (23:06)
[2018-12-29] MEDS: HYDROmorphone INJ 1 MG/ML SYRINGE IV PRN ×2 (03:00→08:15)
[2018-12-29] MEDS: LACTATED RINGER'S 1,000 ML IV SCH ×2 (06:31→13:34)
[2018-12-29] MEDS: ACETAMINOPHEN 1,000 MG/100 ML VIAL IV SCH ×2 (06:32→13:34)
[2018-12-29 06:54] LABS: BUN Creatinine Ratio 20.1 (10-20); Calcium 8.3 mg/dl (8.5-10.1); Creatinine Clr Calc Pharmacy 93.9 ml/min; Est GFR (African American) 109.3; Est GFR (Non-African American) 94.3; Potassium 4.2 mmol/L (3.5-5.1)
[2018-12-29] MEDS: methylPREDNISolone 20 MG in SYRINGE 0 ML IV SCH ×2 (07:15→13:34)
[2018-12-29] MEDS: BusPIRone 15 MG TAB PO SCH ×2 (08:16→13:34)
[2018-12-29] MEDS: PANTOprazole 40 MG in SYRINGE 0 ML IV SCH (08:16)
[2018-12-29] MEDS: LORazepam 0.5 MG/1 ML VIAL IV PRN ×2 (08:23→13:46)
[2018-12-29] MEDS ORDERED: LISINOPRIL 40 MG TAB PO SCH (09:00)
[2018-12-29] MEDS ORDERED: VENLAFAXINE HCL XR 75 MG CAPXR PO SCH (09:00)
--- NOTE | 2018-12-29 15:38 | Hospitalist Progress Note ---
Date of Service December 29, 2018 Assessment & Plan (1) Vomiting: Present on admission with nausea and vomiting Possible related to viral gastroenteritis vs medication (Analgesic or steroid) No abdominal pain on exam Tolerated diet Resolved (2) Leukocytosis: Possible reactive/steroid Leukocytosis could be secondary to phyiologic stress or steroids. UA positive for leukocytes only Denies any urinary symptoms and afebrile clinically stable (3) Abnormal urinalysis: UA showed trace blood, 1+ leukocyte esterase, 5-10 WBC's, 5-10 RBC's, 10- 20 epithelial cells, neg bact. Denies any urinary symptoms If complaint of any urinary symptoms, will check urine cx (4) Intractable back pain: Schedule for back surgery next week Case discussed with Ortho Dr. Arias and OK from ortho standpoint to discharge Continue pain control (5) Essential hypertension: BP fluctuates possible related to pain Continue lisinopril. Monitor BP (6) Depression: Anxiety Increased anxiety due to her upcoming surgery for Tuesday Continue Venlafaxine and buspirone Ativan prn while in the hospital Will give her a script with 5 tabs for ativan to last until Tuesday for her surgery PA prescription drug monitor reviewed Advised pt to hold the ativan if she becomes drowsy and lethargy Please do not take the Ativan and narcotic together due to risk of lethargy and unresponsiveness Please do not drive after taking ativan or any narcotic. Fall precaution (7) DVT prophylaxis: SCD's. Ambulate as able. (8) Discharge planning issues: Possible discharge today Follow up with ortho Dr. Arias Follow up with primary care provider Dr. Cee (Dr. Guzman's colleague) on 01/04 @ 11:05 AM Subjective Pt was seen and examined Lying in bed with no distress Pt said that pain seems to improve She said that she feels very anxious She tolerated her diet well Denies any chest pain, palpitation, dizziness, N/V, dizziness, denies any bladder/bowel loss and SOB Physical Exam Vital Signs (Past 24 Hours): Last Vital Signs Temp 36.8 C 12/29/18 15:22 Pulse 77 12/29/18 15:22 Resp 18 12/29/18 15:22 BP 155/86 H 12/29/18 15:22 Pulse Ox 92 12/29/18 15:22 Physical Exam: General- No acute distress Head- atraumatic Eyes- PERRL, EOMI, ENT- oropharynx clear Neck- supple, no JVD Lungs- clear to auscultation Heart- regular rhythm;+systolic murmur Abdomen- normal bowel sounds, soft, nontender Extremities- no calf tenderness Neuro- alert, oriented x 3; PERRL, EOMI; no facial palsy; no dysarthria Skin- warm & dry (1) Leukocytosis Leukocytosis type: unspecified Qualified Code(s): D72.829 - Elevated white blood cell count, unspecified (2) Vomiting Nausea presence: unspecified Vomiting Intractability: unspecified Vomiting type: unspecified Qualified Code(s): R11.10 - Vomiting, unspecified
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
--- NOTE | 2018-12-30 09:03 | Discharge Summary ---
Date of Service December 29, 2018 Admission HPI Per Admitting Provider 63-year-old female followed by Dr. Guzman. History of hypertension and other problems. Status post anterior cervical discectomy and bilateral foraminotomies C4-[address] Arias on 11/10/18. Did well postoperatively. She wore a cervical collar for about 6 weeks postoperatively and was able to discontinue using it last week. Scheduled to have surgery on her lumbar spine next week. Developed worsening pain in her lumbar spine a few days ago. Pain is severe - 9 on 0-10 scale. Hydrocodone/acetaminophen not effective. Seen in ED yesterday. CT demonstrated previously noted changes with multiple old compression deformiti es, status post kyphoplasty T12 and L1, 6 mm retropulsion about the L1 vertebral body, mostly level degenerative changes, facet arthropathy, and ligamentum flavum thickening; no change compared to 10/22/18 Patient was prescribed prednisone and discharged home. Unable to take prednisone and analgesics because of multiple episodes of nausea and vomiting. Patient estimates that she vomited 6 or 7 times yesterday and 7 or 8 times today. No associated hematemesis. Ongoing severe low back pain radiating to her right lower extremity. No overt weakness extremities; no bladder or bowel dysfunction. Admission Exam Per Admitting Provider Constitutional: no acute distress Eyes: PERRL, conjunctivae normal, anicteric sclerae ENMT: external ear and nose normal, oropharynx normal Mouth: + poor dentition Neck: trachea midline, no thyromegaly Respiratory: normal respiratory effort, lungs clear to auscultation Cardiovascular: Rate/Rhythm: regular rate and regular rhythm Heart Sounds: + murmur (III/ systolic murmur at base); no gallop and no cardiac rub Vessels: no JVD Extremities: normal capillary refill; no calf tenderness and no edema Gastrointestinal normal bowel sounds, soft, nontender, no hepatosplenomegaly Musculoskeletal: Head/Neck/Chest: neck supple Spine: + lumbar spinal tenderness Extremities: strength 5/5 throughout and + limited ROM of lower extremity Right (ankle); no cyanosis and no clubbing Skin: no rashes, warm and dry Neurologic: PERRL, EOMI no facial palsy no dysarthria or aphasia patellar DTR's 1/2 bilat Psychiatric: Orientation: alert and oriented x 3 Affect: + depressed affect and + anxious affect Lymphatic: no cervical lymphadenopathy Principal Diagnosis Back Pain Vomiting Discharge Exam General- No acute distress Head- atraumatic Eyes- PERRL, EOMI, ENT- oropharynx clear Neck- supple, no JVD Lungs- clear to auscultation Heart- regular rhythm;+systolic murmur Abdomen- normal bowel sounds, soft, nontender Extremities- no calf tenderness Neuro- alert, oriented x 3; PERRL, EOMI; no facial palsy; no dysarthria Skin- warm & dry Discharge Data Allergies Allergy/AdvReac Type Severity Reaction Status Date / Time Penicillins Allergy Unknown SWELLING Verified 12/27/18 14:32 EVERYWHERE,ITCHY Consultations 12/28/18 17:29 ED Decision to Admit Stat 12/28/18 21:04 Consult Orthopedic Surgery Routine Hospital Course (1) Vomiting: Present on admission with nausea and vomiting Possible related to viral gastroenteritis vs medication (Analgesic or steroid) No abdominal pain on exam Tolerated diet Resolved (2) Leukocytosis: Possible reactive/steroid Leukocytosis could be secondary to phyiologic stress or steroids. UA positive for leukocytes only Denies any urinary symptoms and afebrile clinically stable (3) Abnormal urinalysis: UA showed trace blood, 1+ leukocyte esterase, 5-10 WBC's, 5-10 RBC's, 10- 20 epithelial cells, neg bact. Denies any urinary symptoms If complaint of any urinary symptoms, will check urine cx (4) Intractable back pain: Schedule for back surgery next week Case discussed with Ortho Dr. Arias and OK from ortho standpoint to discharge Continue pain control (5) Essential hypertension: BP fluctuates possible related to pain Continue lisinopril. Monitor BP (6) Depression: Anxiety Increased anxiety due to her upcoming surgery for Tuesday Continue Venlafaxine and buspirone Ativan prn while in the hospital Will give her a script with 5 tabs for ativan to last until Tuesday for her surgery PA prescription drug monitor reviewed Advised pt to hold the ativan if she becomes drowsy and lethargy Please do not take the Ativan and narcotic together due to risk of lethargy and unresponsiveness Please do not drive after taking ativan or any narcotic. Fall precaution (7) DVT prophylaxis: SCD's. Ambulate as able. (8) Discharge planning issues: Possible discharge today Follow up with ortho Dr. Arias Follow up with primary care provider Dr. Cee (Dr. Guzman's colleague) on 01/04 @ 11:05 AM Total Time Total Time Spent Total Time Spent (In Minutes): 35 minutes Total Time Includes: Examination of the Patient, Discharge Planning, Medication Reconciliation, Communication With Other Providers and Other Discharge Plan Discharge Items Patient Disposition: Home - Self-Care Reason For Visit: NAUSEA,VOMITING,BACK PAIN Discharge Diagnosis: Back Pain Vomiting Discharge Goals: Decrease discomfort, Improve disease control, Improve function and Increase independence Activity: Resume your previous activity Activity Comment: as tolerated Non-emergency contact: Primary Care Provider and Specialist Call non-emergency contact if: you have any medication questions, your symptoms worsen, your pain is not controlled and your temperature is above 101 Follow-up/Referrals: Zion Guzman [Primary Care Provider] - Diet: Low Sodium (2gm) Addtl Provider Instructions: Follow up with primary care provider Dr. Cee (Dr. Guzman's colleague) on 01/04 @ 11:05 AM Follow up with orthopedic dr. Arias on Tuesday for possible surgery Seek medical attention if you develop any urinary symptoms or fever Please hold the ativan if you become drowsy and lethargy Please do not take the Ativan and narcotic together due to risk of lethargy and unresponsiveness Please do not drive after taking ativan or any narcotic. Fall precaution Prescriptions: New lorazepam [Ativan] 0.5 mg tablet 0.5 mg PO BID PRN (Reason: anxiety) Qty: 5 RF: 0 Continued aspirin [Aspirin Low Dose] 81 mg Tablet,Delayed Release (Dr/Ec) 81 mg PO QAM RF: 0 baclofen 10 mg Tablet 10 mg PO TID PRN (Reason: Muscle Spasm/Pain) RF: 0 buspirone 15 mg Tablet 15 mg PO TID RF: 0 hydrocodone-acetaminophen 10-325 mg Tablet 1 tab PO Q8H PRN (Reason: Pain) RF: 0 cholecalciferol (vitamin D3) 2,000 unit Tablet 2,000 units PO QAM RF: 0 trazodone 50 mg Tablet 50 mg PO HS RF: 0 venlafaxine 225 mg Tablet Extended Release 24hr 225 mg PO QAM RF: 0 prednisone 50 mg tablet 50 mg PO DAILY 5 Days Qty: 5 RF: 0 atorvastatin 20 mg tablet 20 mg PO QAM RF: 0 alendronate 70 mg tablet 70 mg PO WK RF: 0 lisinopril 40 mg tablet 40 mg PO QAM RF: 0 ondansetron 4 mg tablet,disintegrating 4 mg PO Q8H PRN (Reason: Nausea) RF: 0 Stand-Alone Forms: [facility] Discharge Orders: Discharge Order (Routine); Ordered 12/29/18 Ordered By: Kimmy Faulkner Admission Data Admit Date/Time: 12/28/18 18:20 Attending Provider: Kimmy Faulkner Admit Provider: Zion Palmer Primary Care Provider: Zion Guzman Other Providers: Zion Palmer ; Juan David Arisa Service: Surgical Services Other Interventions: Discharge Summary Assessment (RN) Last Done: 12/29/18 16:36 DC Date/Time DO NOT enter until pt leaves facility: 12/29/18 17:06
== END 2018-12-29 17:06 | disposition home or self-care (01) ==
LOC: ED 14:02 → 3N 14:02

== ENCOUNTER 2019-01-02 05:44 | Inpatient (IN) ==
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
[2019-01-02] MEDS ORDERED: CeleBREX 200 MG CAP PO SCH (06:00)
[2019-01-02] MEDS ORDERED: GABAPENTIN 300 MG x 2 PO SCH (06:00)
[2019-01-02] MEDS ORDERED: CLINDAMYCIN 600 MG/54 ML BAG IV SCH (06:00)
[2019-01-02] MEDS ORDERED: LR 15ML/HR IV SCH (06:00)
[2019-01-02] MEDS ORDERED: ACETAMINOPHEN 500 MG TAB PO SCH (06:00)
[2019-01-02] MEDS ORDERED: HYDROmorphone INJ 2 MG/ML SYR/VIAL ONE ×2 (06:37)
[2019-01-02] MEDS ORDERED: ONDANSETRON INJ 2 MG/ML 2 ML VIAL ONE ×2 (06:37→08:13)
[2019-01-02] MEDS ORDERED: PROPOFOL IV EMULSION 10 MG/ML 20 ML VIAL IV ONE (06:37)
[2019-01-02] MEDS ORDERED: DEXAMETHASONE SOD INJ 4 MG/ML VIAL ONE (06:37)
[2019-01-02] MEDS ORDERED: NEOSTIGMINE METHYLSULFATE 1 MG/ML 10ML VIAL ONE (06:37)
[2019-01-02] MEDS ORDERED: ROCURONIUM BROMIDE 10 MG/ML 5 ML VIAL ONE (06:37)
[2019-01-02] MEDS ORDERED: LIDOCAINE HCL 2% 2 ML VIAL/AMP(20MG/ML) INFIL ONE (06:37)
[2019-01-02] MEDS ORDERED: fentaNYL citrate 100 MCG/2 ML VIAL ONE ×3 (06:37→08:09)
[2019-01-02] MEDS ORDERED: MIDAZOLAM HCL 1 MG/ML 2ML VIAL ONE (06:37)
[2019-01-02] MEDS ORDERED: GLYCOPYRROLATE 0.2 MG/ML VIAL ONE (06:37)
[2019-01-02] MEDS ORDERED: BACITRACIN INJ 50,000 UNIT VIAL ONE (07:05)
[2019-01-02] MEDS ORDERED: BUPIVACAINE/EPINEPHRINE 0.5% MPF 1:200,000 30 ML VIAL ONE (07:05)
[2019-01-02] MEDS ORDERED: ePHEDrine sulfate 50 MG/ML AMP IV PRN (07:30)
[2019-01-02] MEDS ORDERED: ATROPINE SULFATE 0.1 MG/ML 10ML SYR IV PRN (07:30)
[2019-01-02] MEDS ORDERED: DEXAMETHASONE SOD INJ 4 MG/ML VIAL IV PRN (07:30)
[2019-01-02] MEDS ORDERED: HYDROmorphone INJ 1 MG/ML SYRINGE IV PRN (07:30)
[2019-01-02] MEDS ORDERED: ONDANSETRON INJ 2 MG/ML 2 ML VIAL IV PRN (07:30)
--- NOTE | 2019-01-02 07:31 | History & Physical Bridge Note ---
Date of Service January 02, 2019 History & Physical Bridge Note I have examined the patient, reviewed the History & Physical and in the interval since the performance of the History & Physical I have noted the following changes of clinical significance: no changes noted
--- NOTE | 2019-01-02 07:32 | History & Physical Report ---
Date of Service January 02, 2019 Assessment & Plan (1) Lumbar stenosis with neurogenic claudication: L1-2 decompression in situ fusion Present on Admission?: Yes History of Present Illness Chief Complaint: Back and leg pain Primary Care Provider: Zion Guzman This is a 63-year-old female well-known to me that presents with chronic persistent low back pain. After failing extensive course of nonoperative care is here for surgical intervention. Allergies Allergy/AdvReac Type Severity Reaction Status Date / Time Penicillins Allergy Unknown SWELLING Verified 01/02/19 06:42 EVERYWHERE,ITCHY Home Medications Home Medications Medication Instructions Recorded Confirmed Type aspirin [Aspirin Low Dose] 81 mg PO QAM 10/12/18 01/02/19 History baclofen 10 mg PO TID PRN 10/12/18 01/02/19 History buspirone 15 mg PO TID 10/12/18 01/02/19 History cholecalciferol (vitamin D3) 2,000 units PO QAM 10/12/18 01/02/19 History hydrocodone-acetaminophen 1 tab PO Q8H PRN 10/12/18 01/02/19 History trazodone 50 mg PO HS 11/10/18 01/02/19 History venlafaxine 225 mg PO QAM 12/27/18 01/02/19 History alendronate 70 mg PO WK 12/28/18 01/02/19 History atorvastatin 20 mg PO QAM 12/28/18 01/02/19 History lisinopril 40 mg PO QAM 12/28/18 01/02/19 History ondansetron 4 mg PO Q8H PRN 12/28/18 01/02/19 History Past Med/Surg History Social History Preferred Language: Belarusian Beliefs That Will Affect Care: None marital status: Current Living Situation: Family Other Information That Helps Us Care for You: No Feels Safe at Home: Yes Smoking Status: Current every day smoker Hx Alcohol Use: Yes Hx Substance Use: No Physical Exam Vital Signs (Past 24 Hours): Last Vital Signs Temp 36.8 C 01/02/19 06:45 Pulse 80 01/02/19 06:45 Resp 20 01/02/19 06:45 BP 145/88 H 01/02/19 06:45 Pulse Ox 94 01/02/19 06:45 Results & Data Medications Administered Acetaminophen (Tylenol) 1,000 mg PO PREOP TORRES Stop: 01/02/19 18:00 Last Admin: 01/02/19 06:58 Dose: 1,000 mg Documented by: [id number] Celecoxib (Celebrex) 200 mg PO PREOP TORRES Stop: 01/02/19 18:00 Last Admin: 01/02/19 06:58 Dose: 200 mg Documented by: [id number] Gabapentin (Neurontin) 600 mg PO PREOP TORRES Stop: 01/02/19 18:00 Last Admin: 01/02/19 06:58 Dose: 600 mg Documented by: [id number] Lactated Ringer's (Lr) 1,000 mls @ 15 mls/hr IV .Q24H TORRES Stop: 01/03/19 05:59 Last Admin: 01/02/19 06:59 Dose: 15 mls/hr Documented by: [id number]
[2019-01-02] MEDS ORDERED: raNITIdine HCl 25 MG/ML VIAL ONE (08:13)
[2019-01-02] MEDS ORDERED: METOCLOPRAMIDE HCL INJ 5 MG/ML 2 ML VIAL ONE (08:13)
[2019-01-02] MEDS ORDERED: FLOSEAL HEMOSTATIC MATRIX 10ML TOP ONE (08:42)
[2019-01-02] MEDS ORDERED: ePHEDrine sulfate 50 MG/ML SYR ONE (08:45)
[2019-01-02] MEDS ORDERED: PHENYLEPHRINE 100MCG/ML 5ML SYR ONE (08:45)
[2019-01-02] MEDS ORDERED: KETOROLAC 30 MG/ML VIAL ONE (08:45)
--- NOTE | 2019-01-02 08:45 | Operative Report ---
Post Operative Report Pre & Post Diagnosis Operation Date: 01/02/19 07:45 Pre-Op Diagnosis: Lumbar spinal stenosis with neurogenic claudication Post-Op Diagnosis: Same Procedure Operation Date: 01/02/19 07:45 Actual Procedures #1 lumbar decompression bilateral medial facetectomies L1-2 #2 posterior spinal fusion L1-2. #3 placement of infuse collagen sponge, mass graft in the posterior gutters. #4 placement of local autograft in the posterior lateral gutters. Surgeon Juan David Arias DO Sieve Maker Daniela Ornelas Estimated Blood Loss 10 Findings Consistent with Post-Op Diagnosis Specimens None Description of Procedure Patient was met with preoperatively case discussed all questions addressed. After informed consent obtained patient was taken to the operative suite underwent intubation placed in a prone position on the Abelardo table on top of the Mingo frame. All bony prominences well-padded eyes inspected to ensure no external pressure placed upon the bed at this point the lumbar spine was prepped and draped in the normal sterile fashion. Sharp dissection with the assistance of Bovie cautery was performed down to and exposing the lamina and transverse process of L1 to. Then performed a midline decompression removing the lamina of L1 performing bilateral medial facetectomies of L1 to to address severe stenosis. After this complete the transverse processes of L1 and L2 were burred to subcortical bleeding bone and infuse collagen sponge combined with mass graft and local autograft placed in the posterior gutters. 15 round MARI drain inserted. Incision was then closed with 1 Vicryl in the fascia 2-0 Vicryl subtenons seen for Monocryl for final skin closure. Steri-Strip sterile dressings placed. Patient will continue to PACU stable disc. Please note Daniela Ornelas present at the entire procedure involved in patient positioning complex portions of the surgery and final skin closure. I attest to the content of the Intraoperative Record and any orders documented therein. Any exceptions are noted below.
[2019-01-02] MEDS ORDERED: ALBUTEROL HFA INHALER 8.5 GM ONE (08:54)
--- NOTE | 2019-01-02 09:10 | Fluoroscopy Report ---
FL lumbar spine 2-3V HISTORY: 63 years-old Female L1 DECOMPRESSION/ FUSION status post decompression and fusion of the sylvia mbar spine COMPARISON: CT lumbar spine 12/27/2018 TECHNIQUE: Single lateral spot fluoroscopic image of the lumbar spine obtained utilizing 14.0 seconds fluoroscopy time FINDINGS: Kyphoplasty changes at T12 and L1 redemonstrated with L1 retropulsion. Multilevel spondylitic spurrin g with facet arthropathy. Unchanged alignment. IMPRESSION: Fluoroscopic assistance as above. Please see operative report for further details. The above report was generated using voice recognition software. It may contain grammatical, syntax o r spelling errors. Electronically signed by: Yo Gonzalez M.D. 01/02/2019 9:09 AM
[2019-01-02] MEDS: fentaNYL citrate 100 MCG/2 ML VIAL IV PRN ×6 (09:14→09:40)
[2019-01-02] MEDS ORDERED: SOD PHOSPHATE/SOD BIPHOSPHATE ENEMA 132 ML BTL PR PRN (10:40)
[2019-01-02] MEDS ORDERED: DO NOT ADMINISTER FLU VACCINE PRN (10:40)
[2019-01-02] MEDS ORDERED: TRAMADOL HCL 50 MG TABLET PO PRN (10:40)
[2019-01-02] MEDS ORDERED: BISACODYL 10 MG SUPP PR PRN (10:40)
[2019-01-02] MEDS ORDERED: DO NOT ADMINISTER PNEUMOCOCCAL VACCINE PRN (10:40)
[2019-01-02] MEDS ORDERED: HYDROCODONE/ACETAMINOPHEN 10/325 TAB PO PRN (10:40)
[2019-01-02] MEDS ORDERED: MAGNESIUM HYDROXIDE SUSP 30 ML UDC PO PRN (10:40)
[2019-01-02] MEDS ORDERED: ALUMINUM/MAGNESIUM SUSP 30 ML UDC PO PRN (10:40)
[2019-01-02] MEDS ORDERED: ONDANSETRON 4 MG OD TAB PO PRN (10:40)
[2019-01-02] MEDS ORDERED: METOCLOPRAMIDE HCL INJ 5 MG/ML 2 ML VIAL IV PRN (10:40)
[2019-01-02] MEDS ORDERED: ONDANSETRON 4 MG TAB PO PRN (10:40)
[2019-01-02] MEDS ORDERED: ACETAMINOPHEN 1,000 MG/100 ML VIAL IV PRN (10:40)
[2019-01-02] MEDS ORDERED: FAMOTIDINE 20 MG TAB PO PRN (10:40)
[2019-01-02] MEDS ORDERED: PROMETHAZINE HCL 12.5 MG in SODIUM CHLORIDE 0.9% 50 ML IV PRN (10:40)
[2019-01-02] MEDS ORDERED: ESMOLOL HCL INJ 10 MG/ML 10ML VIAL IV ONE (10:59)
[2019-01-02] MEDS: LORazepam 0.5 MG/1 ML VIAL IV PRN ×2 (11:23→19:52)
--- NOTE | 2019-01-02 11:39 | Anesthesiology Progress Note ---
Date of Service January 02, 2019 Anesthesia Post Procedure Vital Signs Vital Signs: Temp Pulse Pulse Pulse Resp BP BP 01/02/19 11:28 72 122/68 01/02/19 11:03 77 18 115/69 01/02/19 10:20 36.5 C 77 16 129/79 01/02/19 10:01 77 15 125/69 01/02/19 10:00 75 19 01/02/19 09:56 81 24 150/86 H 01/02/19 09:55 82 19 01/02/19 09:51 81 15 136/73 01/02/19 09:50 36.4 C L 82 16 01/02/19 09:46 77 15 142/70 H 01/02/19 09:45 36.4 C L 71 82 10 L 142/70 H 01/02/19 09:41 74 12 129/78 01/02/19 09:40 72 16 01/02/19 09:36 78 19 148/67 H 01/02/19 09:35 80 18 01/02/19 09:31 70 23 141/83 H 01/02/19 09:30 76 18 01/02/19 09:26 71 22 132/73 01/02/19 09:25 72 23 01/02/19 09:21 73 20 128/81 01/02/19 09:20 72 14 01/02/19 09:16 76 20 122/86 01/02/19 09:15 24 01/02/19 09:11 24 136/85 01/02/19 09:10 21 01/02/19 09:06 80 13 146/83 H 01/02/19 09:05 80 15 01/02/19 09:03 36.6 C 79 87 19 145/90 H 145/90 H 01/02/19 09:02 22 01/02/19 06:45 36.8 C 80 20 145/88 H Pulse Ox 01/02/19 11:28 95 01/02/19 11:03 98 01/02/19 10:20 99 01/02/19 10:01 98 01/02/19 10:00 98 01/02/19 09:56 100 01/02/19 09:55 99 01/02/19 09:51 98 01/02/19 09:50 99 01/02/19 09:46 96 01/02/19 09:45 95 01/02/19 09:41 98 01/02/19 09:40 96 01/02/19 09:36 100 01/02/19 09:35 100 01/02/19 09:31 100 01/02/19 09:30 100 01/02/19 09:26 100 01/02/19 09:25 100 01/02/19 09:21 100 01/02/19 09:20 100 01/02/19 09:16 100 01/02/19 09:15 100 01/02/19 09:11 100 01/02/19 09:10 100 01/02/19 09:06 100 01/02/19 09:05 100 01/02/19 09:03 100 01/02/19 09:02 100 01/02/19 06:45 94 Pain Intensity Medial Back: Pain Intensity: 6 Neck: Pain Intensity: 6 Notes Mental Status: alert / awake / arousable and participated in evaluation Patient Amnestic to Procedure: Yes Nausea / Vomiting: adequately controlled Pain: adequately controlled Airway Patency, RR, SpO2: stable & adequate BP & HR: stable & adequate Hydration State: stable & adequate Anesthetic Complications: no major complications apparent
[2019-01-02] MEDS: KETOROLAC TROMETHAMINE 15 MG/ML VIAL IV SCH ×2 (13:06→20:51)
[2019-01-02] MEDS: CHOLECALCIFEROL 1,000 UNITS TAB PO SCH (13:07)
[2019-01-02] MEDS: ATORVASTATIN 20 MG TAB PO SCH (13:08)
[2019-01-02] MEDS: HYDROmorphone INJ 0.5 MG/0.5 ML SYR IV PRN ×2 (14:03→23:10)
[2019-01-02] MEDS: BusPIRone 15 MG TAB PO SCH ×2 (14:11→20:37)
[2019-01-02] MEDS: ASPIRIN 81 MG ECTAB PO SCH (14:11)
[2019-01-02] MEDS: BACLOFEN 10 MG TAB PO PRN (17:14)
[2019-01-02] MEDS: OXYCODONE HCL IR 5 MG TAB (IMMEDIATE RELEASE) PO PRN (18:07)
[2019-01-02] MEDS: CLINDAMYCIN 600 MG in DEXTROSE 5% 50 ML IV SCH (18:09)
[2019-01-02] MEDS: LORazepam 0.5 MG TAB PO PRN (19:38)
[2019-01-02] MEDS: TRAZODONE HCL 50 MG TAB PO SCH (20:37)
[2019-01-02] MEDS: DOCUSATE SODIUM/SENNA 50/8.6MG TAB PO SCH (20:41)
[2019-01-02] MEDS: LACTATED RINGER'S 1,000 ML IV SCH ×2 (20:51→20:52)
[2019-01-02] MEDS: ACETAMINOPHEN 500 MG TAB PO PRN (21:48)
[2019-01-02] MEDS: ONDANSETRON INJ 2 MG/ML 2 ML VIAL IV PRN (23:17)
[2019-01-03] MEDS: CLINDAMYCIN 600 MG in DEXTROSE 5% 50 ML IV SCH (02:46)
[2019-01-03] MEDS: KETOROLAC TROMETHAMINE 15 MG/ML VIAL IV SCH ×3 (02:50→08:22)
[2019-01-03] MEDS: LACTATED RINGER'S 1,000 ML IV SCH (04:06)
[2019-01-03] MEDS: POLYETHYLENE (MIRALAX) 17 GM PACK PO SCH ×2 (05:12→11:31)
[2019-01-03 06:11] LABS: Basophils # (auto) 0.01 K/uL (0-0.2); Basophils % (auto) 0.1 %; Eosinophils # (auto) 0.09 K/uL (0-0.5); Eosinophils % (auto) 0.5 %; Hematocrit (blood only) 33.8 % (37-47); Hemoglobin 11.1 g/dL (12.0-16.0); Immature Granulocytes # (auto) 0.05 K/uL (0.00-0.02); Immature Granulocytes % (auto) 0.3 %; Lymphocytes # (auto) 2.14 K/uL (1.2-3.4); Lymphocytes % (auto) 12.5 %; Mean Corpuscular Hgb Conc 32.8 g/dL (32-36); Mean Corpuscular Volume 95.2 fL (80-100); Mean Platelet Volume 9.2 fL (7.4-10.4); Monocytes # (auto) 1.71 K/uL (0.11-0.59); Neutrophils # (auto) 13.17 K/uL (1.4-6.5); Neutrophils % (auto) 76.6 %; Platelet Count 279 K/uL (130-400); RDW Coefficient of Variation 13.2 % (11.5-14.5); RDW Standard Deviation 46.4 fL (36.4-46.3); Red Blood Count 3.55 M/uL (4.2-5.4); White Blood Count 17.17 K/uL (4.8-10.8)
[2019-01-03 06:31] LABS: BUN Creatinine Ratio 19.3 (10-20); Calcium 8.2 mg/dl (8.5-10.1); Est GFR (African American) 112.3; Est GFR (Non-African American) 96.9; Potassium 4.2 mmol/L (3.5-5.1)
[2019-01-03] MEDS: OXYCODONE HCL IR 5 MG TAB (IMMEDIATE RELEASE) PO PRN ×4 (07:36→19:40)
--- NOTE | 2019-01-03 08:00 | Anesthesiology Progress Note ---
Date of Service January 03, 2019 Anesthesia Post Procedure Vital Signs Vital Signs: Temp Pulse Pulse Pulse Resp BP BP 01/03/19 07:01 36.6 C 80 18 01/03/19 02:33 36.6 C 72 16 01/02/19 23:07 36.9 C 92 H 18 132/72 01/02/19 20:03 36.7 C 76 17 01/02/19 15:32 37.2 C 91 H 17 01/02/19 14:07 83 18 01/02/19 12:20 81 18 01/02/19 11:28 72 01/02/19 11:03 77 18 01/02/19 10:20 36.5 C 77 16 01/02/19 10:01 77 15 125/69 01/02/19 10:00 75 19 01/02/19 09:56 81 24 150/86 H 01/02/19 09:55 82 19 01/02/19 09:51 81 15 136/73 01/02/19 09:50 36.4 C L 82 16 01/02/19 09:46 77 15 142/70 H 01/02/19 09:45 36.4 C L 71 82 10 L 01/02/19 09:41 74 12 129/78 01/02/19 09:40 72 16 01/02/19 09:36 78 19 148/67 H 01/02/19 09:35 80 18 01/02/19 09:31 70 23 141/83 H 01/02/19 09:30 76 18 01/02/19 09:26 71 22 132/73 01/02/19 09:25 72 23 01/02/19 09:21 73 20 128/81 01/02/19 09:20 72 14 01/02/19 09:16 76 20 122/86 01/02/19 09:15 24 01/02/19 09:11 24 136/85 01/02/19 09:10 21 01/02/19 09:06 80 13 146/83 H 01/02/19 09:05 80 15 01/02/19 09:03 36.6 C 79 87 19 145/90 H 01/02/19 09:02 22 BP Pulse Ox 01/03/19 07:01 161/82 H 97 01/03/19 02:33 126/72 93 01/02/19 23:07 96 01/02/19 20:03 123/62 97 01/02/19 15:32 135/73 93 01/02/19 14:07 148/81 H 92 01/02/19 12:20 106/64 97 01/02/19 11:28 122/68 95 01/02/19 11:03 115/69 98 01/02/19 10:20 129/79 99 01/02/19 10:01 98 01/02/19 10:00 98 01/02/19 09:56 100 01/02/19 09:55 99 01/02/19 09:51 98 01/02/19 09:50 99 01/02/19 09:46 96 01/02/19 09:45 142/70 H 95 01/02/19 09:41 98 01/02/19 09:40 96 01/02/19 09:36 100 01/02/19 09:35 100 01/02/19 09:31 100 01/02/19 09:30 100 01/02/19 09:26 100 01/02/19 09:25 100 01/02/19 09:21 100 01/02/19 09:20 100 01/02/19 09:16 100 01/02/19 09:15 100 01/02/19 09:11 100 01/02/19 09:10 100 01/02/19 09:06 100 01/02/19 09:05 100 01/02/19 09:03 145/90 H 100 01/02/19 09:02 100 Pain Intensity Medial Back: Pain Intensity: 6 Neck: Pain Intensity: 8 Notes Mental Status: alert / awake / arousable and participated in evaluation Patient Amnestic to Procedure: Yes Nausea / Vomiting: adequately controlled Pain: adequately controlled Airway Patency, RR, SpO2: stable & adequate BP & HR: stable & adequate Hydration State: stable & adequate Anesthetic Complications: no major complications apparent
[2019-01-03] MEDS: VENLAFAXINE HCL XR 75 MG CAPXR PO SCH (08:23)
[2019-01-03] MEDS: ASPIRIN 81 MG ECTAB PO SCH (08:23)
[2019-01-03] MEDS: ATORVASTATIN 20 MG TAB PO SCH (08:23)
[2019-01-03] MEDS: CHOLECALCIFEROL 1,000 UNITS TAB PO SCH (08:23)
[2019-01-03] MEDS: BusPIRone 15 MG TAB PO SCH ×3 (08:23→21:09)
[2019-01-03] MEDS: LISINOPRIL 40 MG TAB PO SCH (08:24)
[2019-01-03] MEDS: BACLOFEN 10 MG TAB PO PRN ×2 (10:15→21:56)
[2019-01-03] MEDS: NICOTINE 21 MG/24 HR TDSY TD SCH (10:43)
--- NOTE | 2019-01-03 12:16 | Orthopedic Progress Note ---
Date of Service January 03, 2019 Assessment & Plan (1) Lumbar stenosis with neurogenic claudication: At this time we will continue physical therapy monitor her MARI output anticipate possible home tomorrow. Present on Admission?: Yes Subjective Back pain is controlled leg symptoms improved Physical Exam Vital Signs (Past 24 Hours): Last Vital Signs Temp 36.6 C 01/03/19 11:40 Pulse 77 01/03/19 11:40 Resp 16 01/03/19 11:40 BP 154/89 H 01/03/19 11:47 Pulse Ox 95 01/03/19 11:40 Physical Exam: On exam she appears comfortable has good strength testing.
[2019-01-03] MEDS: ACETAMINOPHEN 500 MG TAB PO PRN (13:42)
[2019-01-03] MEDS ORDERED: Nursing to Pharmacy Communication ONE (16:45)
[2019-01-03] MEDS: DOCUSATE SODIUM/SENNA 50/8.6MG TAB PO SCH (21:08)
[2019-01-03] MEDS: TRAZODONE HCL 50 MG TAB PO SCH (21:09)
[2019-01-03] MEDS: LORazepam 0.5 MG/1 ML VIAL IV PRN (23:58)
[2019-01-04] MEDS: HYDROmorphone INJ 0.5 MG/0.5 ML SYR IV PRN ×3 (01:11→11:34)
[2019-01-04] MEDS: ONDANSETRON INJ 2 MG/ML 2 ML VIAL IV PRN (05:42)
--- NOTE | 2019-01-04 07:53 | Orthopedic Progress Note ---
Date of Service January 04, 2019 Assessment & Plan (1) Lumbar stenosis with neurogenic claudication: At this time we will continue physical therapy today DC drain today anticipate discharge home tomorrow. Present on Admission?: Yes Subjective Patient complaining of considerable back spasms and pain. No specific leg pain. Bowels working well. Physical Exam Vital Signs (Past 24 Hours): Last Vital Signs Temp 36.7 C 01/03/19 23:17 Pulse 84 01/03/19 23:17 Resp 18 01/03/19 23:17 BP 144/81 H 01/03/19 23:17 Pulse Ox 94 01/03/19 23:17 Physical Exam: Patient appears to be uncomfortable. She is reasonable strength testing bilaterally.
[2019-01-04] MEDS: ASPIRIN 81 MG ECTAB PO SCH (08:49)
[2019-01-04] MEDS: VENLAFAXINE HCL XR 75 MG CAPXR PO SCH (08:49)
[2019-01-04] MEDS: BusPIRone 15 MG TAB PO SCH ×3 (08:50→20:12)
[2019-01-04] MEDS: CHOLECALCIFEROL 1,000 UNITS TAB PO SCH (08:50)
[2019-01-04] MEDS: ATORVASTATIN 20 MG TAB PO SCH (08:50)
[2019-01-04] MEDS: LISINOPRIL 40 MG TAB PO SCH (08:50)
[2019-01-04] MEDS: NICOTINE 21 MG/24 HR TDSY TD SCH (08:51)
[2019-01-04] MEDS: BACLOFEN 10 MG TAB PO PRN ×2 (09:00→20:11)
[2019-01-04] MEDS: OXYCODONE HCL IR 5 MG TAB (IMMEDIATE RELEASE) PO PRN ×3 (13:36→23:24)
[2019-01-04] MEDS: LORazepam 0.5 MG TAB PO PRN (15:19)
[2019-01-04] MEDS: TRAZODONE HCL 50 MG TAB PO SCH (20:12)
[2019-01-04] MEDS: DOCUSATE SODIUM/SENNA 50/8.6MG TAB PO SCH (20:13)
[2019-01-05] MEDS: LORazepam 0.5 MG TAB PO PRN (00:34)
[2019-01-05] MEDS: OXYCODONE HCL IR 5 MG TAB (IMMEDIATE RELEASE) PO PRN ×3 (03:04→11:08)
[2019-01-05] MEDS: BACLOFEN 10 MG TAB PO PRN ×2 (04:35→12:03)
[2019-01-05] MEDS: BusPIRone 15 MG TAB PO SCH ×2 (09:11→14:38)
[2019-01-05] MEDS: ASPIRIN 81 MG ECTAB PO SCH (09:11)
[2019-01-05] MEDS: VENLAFAXINE HCL XR 75 MG CAPXR PO SCH (09:12)
[2019-01-05] MEDS: CHOLECALCIFEROL 1,000 UNITS TAB PO SCH (09:13)
[2019-01-05] MEDS: ATORVASTATIN 20 MG TAB PO SCH (09:13)
[2019-01-05] MEDS: NICOTINE 21 MG/24 HR TDSY TD SCH (09:14)
[2019-01-05] MEDS: LISINOPRIL 40 MG TAB PO SCH (09:14)
--- NOTE | 2019-01-05 13:25 | Discharge Summary ---
Date of Service January 05, 2019 Admission HPI Per Admitting Provider This is a 63-year-old female well-known to me that presents with chronic persistent low back pain. After failing extensive course of nonoperative care is here for surgical intervention. Principal Diagnosis Lumbar spinal stenosis with neurogenic claudication Discharge Data Allergies Allergy/AdvReac Type Severity Reaction Status Date / Time Penicillins Allergy Unknown SWELLING Verified 01/02/19 06:42 EVERYWHERE,ITCHY Consultations 01/02/19 10:40 Consult Case Management - Discharge Planning Routine Procedures Performed Operation Date: 01/02/19 07:45 Actual Procedures p L-L2 Decompression Insitu Fusion(Not Applicable) - Juan David Arias DO Ordered Studies 01/02/19 07:45 FL fluoroscopy <1hr Routine [place] lumbar spine 2-3V Routine Hospital Course (1) Lumbar stenosis with neurogenic claudication: Patient underwent lumbar decompression and fusion tolerated this well was taken to orthopedic floor postoperative. Postop day 1 she is up and amatory progressed to postop day #2 MARI drain decreasing appropriately. Subsequently discharged home on postop day #3. Discharge orders and instructions were on the chart for further review. Total Time Total Time Spent Total Time Spent (In Minutes): Not applicable Discharge Plan Discharge Items Patient Disposition: Home - Self-Care Reason For Visit: Spinal Stenosis Discharge Diagnosis: lumbar stenosis Discharge Goals: Improve function Activity: Per 'Additional Instructions' section Non-emergency contact: Primary Care Provider Call non-emergency contact if: you have any medication questions Follow-up/Referrals: Zion Guzman [Primary Care Provider] - Diet: Regular Addtl Provider Instructions: ACTIVITY RECOMMENDATIONS: SELF CARE INSTRUCTIONS AFTER THORACIC/LUMBAR FUSIONS 1. You may walk to your tolerance. It is good exercise for your legs and back. Expect some back and intermittent leg aches and pains. 2. You may perform "counter-top" level activities (make a sandwich, lisandro with a project, etc.). 3. No bending or lifting of more than 10 pounds or back twisting of any nature (roll like a log when turning in bed). 4. You may ride in a car for 20-30 minutes at a time. No driving until after your first visit with your doctor. 5. Frequent changes of position and restricting sitting to 30 minutes at a time will help limit the amount of back spasms and stiffness you may experience. 6. You may discontinue the use of ambulatory aids (cane, crutches, etc.) once your strength and confidence allow. 7. You may appointment manager the shower and let water strike your incision when you arrive home at least once daily. Do not take a tub bath, sit in a hot tub or go into a swimming pool until after your first recheck in the office. SPECIAL CARE INSTRUCTIONS: VERY IMPORTANT TO READ AND REVIEW A. Your surgical incision has been closed with a cosmetic suture under the skin that will dissolve in about 6 weeks. In 14 days, you can use a pair of clean scissors and cut the suture that is left outside of the skin at the ends of your incision. 1. The small skin tapes can be removed 7 days after surgery if they have not fallen off by that point. 2. You may keep the wound open to air as much as possible to promote healing after post-op day number 5 unless told otherwise by your doctor. 3. If you think the wound looks like it is becoming infected (redness or worsening drainage) and/or you are experiencing fever, chill or worsening back pain and muscle spasms, contact the office so that we may evaluate you as soon as possible. B. Complications are uncommon, but please contact us if you have any signs or symptoms of: 1. wound infection (fever higher than 102.5 degrees F, redness, separation of wound, drainage, or increasing pain from the incision) 2. blood clots in legs (pain, swelling, redness and warmth in legs) 3. urinary tract infection (fever higher than 102.5 degrees F, burning upon urination or increased frequency of urination) 4. nerve problems (inability to walk on your toes or heels, numbness, loss of bowel or bladder control) 5. any other symptoms that concern you C. Please call the office at if you have any concerns or questions about your operation or recovery. D. No smoking! Smoking drastically decreases the chance of a solid fusion. E. Do not take any anti-inflammatory medications (Indocin, Advil, Motrin, Aspirin, Naprosyn, etc.) as these may inhibit the chance of a solid fusion. Tylenol is okay to take for pain. MANAGING PAIN AFTER SPINAL SURGERY 1. Narcotic medication is intended for short-term use and will be provided for surgical pain. Surgical pain usually lasts for a period of 4-6 weeks. Narcotic medication includes Percocet, Vicodin, Darvocet, Tylenol #3 or Lortab. 2. Longer-term pain is more appropriately treated with non-narcotic medication such as Tylenol ES. 3. Muscle spasm is not appropriately treated with narcotics. Muscle relaxers such as Soma, Flexeril or Skelaxin can be used along with Tylenol ES. 4. Remember that we all live with some "aches and pains". This is not unusual or uncommon after an injury or as we get older. a. Back pain is expected and may include muscle spasms for 4 to 6 weeks after surgery. The pain should gradually improve. If the pain worsens for no apparent reason, please contact the office. b. Intermittent leg pain may also be experienced and should not be concerned about unless it worsens for no apparent reason. If so, please contact the office. 5. We will provide appropriate medication within the normal guidelines of their prescribed use. We will also be very cautious and aware of potential abuse and extended duration of patients' medication needs. a. Pain medications are for your comfort and to assist with sleep and rest so that the tissue can heal. They are not provided in order to return to normal activity and should not be used through the day. To do so or worsening pain at night can result from ongoing tissue damage and development of tolerance to the prescribed medicine. 6. Please allow 2-3 days to process refills. Prescriptions will not be mailed but must be picked up at the office. FOLLOW UP VISIT: Keep your scheduled follow-up appointment. Any questions, please call the office at . Prescriptions: New oxycodone 5 mg Tablet 5 mg PO Q4H PRN (Reason: Pain) Qty: 30 RF: 0 Continued aspirin [Aspirin Low Dose] 81 mg Tablet,Delayed Release (Dr/Ec) 81 mg PO QAM RF: 0 baclofen 10 mg Tablet 10 mg PO TID PRN (Reason: Muscle Spasm/Pain) RF: 0 buspirone 15 mg Tablet 15 mg PO TID RF: 0 hydrocodone-acetaminophen 10-325 mg Tablet 1 tab PO Q8H PRN (Reason: Pain) RF: 0 cholecalciferol (vitamin D3) 2,000 unit Tablet 2,000 units PO QAM RF: 0 trazodone 50 mg Tablet 50 mg PO HS RF: 0 venlafaxine 225 mg Tablet Extended Release 24hr 225 mg PO QAM RF: 0 atorvastatin 20 mg tablet 20 mg PO QAM RF: 0 alendronate 70 mg tablet 70 mg PO WK RF: 0 lisinopril 40 mg tablet 40 mg PO QAM RF: 0 ondansetron 4 mg tablet,disintegrating 4 mg PO Q8H PRN (Reason: Nausea) RF: 0 Stand-Alone Forms: [facility] Discharge Orders: Discharge Order (Routine); Ordered 01/05/19 Ordered By: Juan David Arias Admission Data Admit Date/Time: 01/02/19 08:48 Attending Provider: Juan David Arias Admit Provider: Juan David Arias Primary Care Provider: Zion Guzman Service: Surgical Services
== END 2019-01-05 14:43 | disposition home or self-care (01) | DRG 460 ==
LOC: ASU 05:44 → 3E 08:48

== ENCOUNTER 2019-03-07 06:45 | Inpatient (IN) ==
[2019-03-07] MEDS ORDERED: FAMOTIDINE 20MG IV PUSH 20 MG/5 ML SYR IV STA (07:06)
[2019-03-07] MEDS ORDERED: GI COCKTAIL ED USE PO ONE (07:06)
[2019-03-07] MEDS ORDERED: SODIUM CHLORIDE 0.9% 1000ML 2,000 ML IV ONE (07:06)
[2019-03-07] MEDS ORDERED: ONDANSETRON INJ 2 MG/ML 2 ML VIAL IV STA (07:11)
[2019-03-07 07:40] LABS: Basophils # (auto) 0.02 K/uL (0-0.2); Basophils % (auto) 0.2 %; Eosinophils # (auto) 0.22 K/uL (0-0.5); Eosinophils % (auto) 2.5 %; Hematocrit (blood only) 42.4 % (37-47); Hemoglobin 14.7 g/dL (12.0-16.0); Immature Granulocytes # (auto) 0.03 K/uL (0.00-0.02); Immature Granulocytes % (auto) 0.3 %; Lymphocytes % (auto) 14.8 %; Mean Corpuscular Hgb Conc 34.7 g/dL (32-36); Mean Corpuscular Volume 91.8 fL (80-100); Mean Platelet Volume 8.6 fL (7.4-10.4); Monocytes # (auto) 0.59 K/uL (0.11-0.59); Monocytes % (auto) 6.7 %; Neutrophils # (auto) 6.65 K/uL (1.4-6.5); Neutrophils % (auto) 75.5 %; Platelet Count 273 K/uL (130-400); RDW Coefficient of Variation 13.2 % (11.5-14.5); RDW Standard Deviation 44.7 fL (36.4-46.3); Red Blood Count 4.62 M/uL (4.2-5.4); White Blood Count 8.81 K/uL (4.8-10.8)
[2019-03-07 08:00] LABS: Alanine Aminotransferase 17 U/L (12-78); Albumin Level 3.7 gm/dl (3.4-5.0); Aspartate Aminotransferase 10 U/L (15-37); BUN Creatinine Ratio 17.7 (10-20); Blood Urea Nitrogen 11 mg/dl (7-18); Calcium 8.9 mg/dl (8.5-10.1); Carbon Dioxide 27 mmol/L (21-32); Chloride 107 mmol/L (98-107); Creatinine Clr Calc Pharmacy 93.8 ml/min; Est GFR (African American) 111.6; Est GFR (Non-African American) 96.3; Glucose 112 mg/dl (70-99); Potassium 3.5 mmol/L (3.5-5.1); Sodium 142 mmol/L (136-145)
[2019-03-07 08:05] LABS: Albumin Globulin Ratio 1.1 (0.9-2); Alkaline Phosphatase 62 U/L (45-117); Bilirubin,Total 0.3 mg/dl (0.2-1); Globulin 3.3 gm/dl (2.5-4.0); Troponin I < 0.015 ng/ml (0-0.045)
[2019-03-07] MEDS ORDERED: ACETAMINOPHEN 1,000 MG/100 ML VIAL IV STA (08:33)
[2019-03-07] MEDS ORDERED: MoRPHine SULFATE 4 MG/ML 1 ML CARP\\VIAL IV STA (08:33)
[2019-03-07] MEDS ORDERED: PROMETHAZINE 25 MG/51 ML BAG IV STA (08:33)
[2019-03-07] MEDS ORDERED: OPTIRAY 320 125ml IV PRN (09:12)
[2019-03-07 09:33] LABS: Appearance Urine Clear (Clear); Bacteria Urine Automated Negative (Negative); Bilirubin Urine Negative (Negative); Blood Urine Trace (Negative); Color Urine Yellow; Epithelial Cell Urine Auto >30 /lpf (0-5); Glucose Urine UA Negative (Negative); Ketones Urine Negative (Negative); Leukocyte Esterase Urine 1+ (Negative); Nitrite Urine Negative (Negative); Protein Urine Negative (Negative); RBC Urine Automated 0-4 /hpf (0-4); Specific Gravity Urine 1.022 (1.000-1.030); Urobilinogen Urine Negative (Negative)
--- NOTE | 2019-03-07 09:33 | CT Scan Report ---
CT angio abdomen pelvis w con HISTORY: Severe generalized abdominal pain. TECHNIQUE: Multiaxial CT images of the abdomen and pelvis were performed following use of intravenous contrast to evaluate the major arterial structures. Maximal intensity projection images were also ob tained. COMPARISON STUDY: Abdomen and pelvis CT 03/05/2019. FINDINGS: The lung bases are essentially clear. No pneumoperitoneum. No pneumatosis. Healing bilatera l L1 and L2 transverse process fractures are again noted. T12 and L1 vertebroplasty is also noted. No change in the 4 mm of retropulsion of L1. There is posterior decompression at L1 and L2. The liver, gallbladder, pancreas, spleen, and adrenal glands are unremarkable. The kidneys enhance normally. No hydronephrosis. No retroperitoneal lymphadenopathy. Normal bladder. Hysterectomy. A few colonic diver ticula. No evidence for diverticulitis. No bowel wall thickening or obstruction. Moderate calcified plaque within the normal caliber abdominal aorta and common iliac arteries. No ane urysm or stenosis identified. No significant stenosis within the celiac, superior mesenteric, inferio r mesenteric, or renal arteries. IMPRESSION: 1. No significant stenosis, occlusion, or aneurysm within the abdominal vessels. 2. No bowel wall thickening or obstruction. 3. Colonic diverticulosis. No evidence for diverticulitis. 4. Additional chronic findings as described above. Electronically signed by: Jef Jade M.D. 03/07/2019 9:32 AM
[2019-03-07] MEDS ORDERED: LISINOPRIL 20 MG TAB PO STA (09:46)
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
[2019-03-07] MEDS ORDERED: FLUTICASONE PROPIONATE NA SPR 16 GM BTL NAE PRN (14:20)
[2019-03-07] MEDS ORDERED: BACLOFEN 10 MG TAB PO PRN (14:20)
[2019-03-07] MEDS ORDERED: FAMOTIDINE 20MG/5ML IV PUSH IV SCH (14:20)
[2019-03-07] MEDS ORDERED: ACETAMINOPHEN 325 MG TAB PO PRN (14:20)
[2019-03-07] MEDS ORDERED: LORATADINE 10 MG TAB PO PRN (14:20)
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
[2019-03-07] MEDS: ONDANSETRON INJ 2 MG/ML 2 ML VIAL IV PRN ×2 (14:57→21:36)
[2019-03-07] MEDS: LACTATED RINGER'S 1,000 ML IV SCH (14:57)
[2019-03-07] MEDS: FAMOTIDINE 20 MG in SYRINGE 3 ML IV SCH ×2 (14:57→21:56)
[2019-03-07] MEDS ORDERED: BusPIRone 15 MG TAB PO SCH (15:00)
[2019-03-07] MEDS ORDERED: cefTRIAXone SODIUM 1,000 MG in DEXTROSE 5% 50 ML IV SCH (15:00)
[2019-03-07] MEDS: MoRPHine SULFATE 4 MG/ML 1 ML CARP\\VIAL IV PRN ×2 (15:05→20:30)
[2019-03-07] MEDS: NICOTINE 14 MG/24 HR PATCH TD SCH (15:44)
[2019-03-07] MEDS ORDERED: HydrALAZINE HCL 20 MG/ML VIAL IV PRN (16:04)
[2019-03-07] MEDS ORDERED: TRAZODONE HCL 50 MG TAB PO SCH (21:00)
--- NOTE | 2019-03-07 21:14 | Ultrasound Report ---
ULTRASOUND RIGHT UPPER QUADRANT ABDOMEN CLINICAL HISTORY: Generalized abdominal pain. COMPARISON STUDY: Abdominal CT performed the same day 03/07/2019. TECHNIQUE: Real-time, grayscale, and color flow sonography of the right upper quadrant of the abdomen was performed. Images are reviewed in the transverse and longitudinal planes. The examination is deg raded by bowel gas. FINDINGS: Liver: The liver is normal in size and heterogeneous in echotexture. There is no intrahepatic biliary ductal dilatation. The main portal vein is patent. Gallbladder: The gallbladder is normal in appearance. No gallstones are identified. There is no gallb ladder wall thickening or pericholecystic fluid. A sonographic Fisher's sign is reportedly absent. Th e common bile duct measures up to 0.4 cm in diameter. Pancreas: Visualized portions of the pancreatic head and body are normal in appearance. The splenic v ein is patent. Right kidney: Survey images of the right kidney demonstrate normal size and echotexture. There is no hydronephrosis. Ascites: None. IMPRESSION: No acute sonographic abnormality is identified in the right upper quadrant. No shadowing gallstones are seen. Electronically signed by: Nikolas Ricks M.D. 03/07/2019 9:13 PM
[2019-03-07] MEDS: PANTOprazole 40 MG TAB PO SCH (21:38)
[2019-03-07] MEDS: SUCRALFATE 1 GM/10 ML UDC PO SCH (21:38)
[2019-03-07] MEDS: BUSPIRONE HCL 7.5 MG TAB PO SCH (21:40)
[2019-03-08] MEDS: MoRPHine SULFATE 4 MG/ML 1 ML CARP\\VIAL IV PRN (02:50)
[2019-03-08] MEDS: ONDANSETRON INJ 2 MG/ML 2 ML VIAL IV PRN (03:38)
--- NOTE | 2019-03-08 08:16 | XRay Report ---
KUB HISTORY: Acute generalized abdominal pain with nodular and vomiting KUB COMPARISON: CTA abdomen and pelvis 03/07/2019 FINDINGS: The bowel gas pattern is non-obstructive. There is no organomegaly. Calcifications of the p aamir suggest phleboliths. No renal calculi. No ureteral calculi. No pneumoperitoneum or pneumatosis. Kyphoplasty changes at T12 and L1. Device at the L4 level. Degenerative changes of the spine, pelvis and hips. IMPRESSION: 1. Nonobstructive bowel gas pattern. 2. No urolith identified. Electronically signed by: Yo Gonzalez M.D. 03/08/2019 8:15 AM
[2019-03-08] MEDS: SUCRALFATE 1 GM/10 ML UDC PO SCH ×2 (08:17→14:15)
[2019-03-08] MEDS: NICOTINE 14 MG/24 HR PATCH TD SCH (08:18)
[2019-03-08] MEDS: PANTOprazole 40 MG TAB PO SCH (08:18)
[2019-03-08] MEDS: BUSPIRONE HCL 7.5 MG TAB PO SCH ×2 (08:19→14:15)
--- NOTE | 2019-03-08 08:44 | Gastroenterology Progress Note ---
Date of Service March 08, 2019 Assessment & Plan (1) Abdominal pain: 63 year old female with history of numerous abdominal and back surgeries admitted through the ED w/ abdominal pain, nausea/vomiting and diarrhea. No acute lab/imaging findings. Does have gallstones on imaging, normal LFTs and lipase. On ABX for questionable pyelonephritis. DDX discussed, all questions answered. Biliary colic vs gastritis vs PUD vs infectious colitis vs overflow diarrhea vs withdrawal vs other. Persistent symptoms this AM, she is NPO, will arrange diagnostic EGD for evaluation, rule out PUD, gastritis etc. - Appreciate ongoing management per the primary service - Recommend to check stool for c.diff and stool culture to rule out infection if diarrhea returns - Antiemetics as needed - Analgesia per the primary service - Recommend PO PPI BID - Recommend Carafate suspension QID Thank you for allowing us to participate in the care of this patient. Please call with any acute changes, questions or concerns. Please see addendum below with additional recommendation from my supervising physician once completed. (2) Nausea & vomiting: Supervising Physician Co-Signing Physician Notes I have seen and examined the patient with KIMBERLY Lopez whose note reflects our findings and plan. EGD today Subjective Pt was seen and evaluated, chart reviewed. Abd pain less severe this AM. Still present. RUQ and epigastric. Severe nausea but no vomiting since admission. No BM since admission. No fever, chills. No sick contacts. ETOH: none Drugs: tried marijuana for the pain but did not help NSAIDs: ASA daily Surgical Hx: appendectomy, D&C, hernia repair x 2, oophectectomy, hysterectomy, back surgery x 4, AAA repair, ex-lap EGD: none Colonoscopy 2008: Four 2 to 3 mm polyps in the sigmoid colon, in the splenic flexure and in the ascending colon. Resected and retrieved KUB: no ileus ABD US 2019: no shadowing gallstones CTA 2019: No significant stenosis, occlusion, or aneurysm within the abdominal vessels.No bowel wall thickening or obstruction. Colonic diverticulosis. No evidence for diverticulitis. Additional chronic findings as described above. CT 2019: Slightly decreased enhancement of the right kidney is suggestive of acute pyelonephritis. Correlate with urinalysis.No ureteral calculi or obstructive uropathy.Probable cholelithiasis without CT evidence of acute cholecystitis.No bowel obstruction or focal bowel wall thickening. Prior appendectomy and hysterectomy.Subacute healing fractures of the right L1 and L2 transverse processes.Additional findings as above. AAA Screen 2018: Atherosclerotic changes of the abdominal aorta. No abdominal aortic aneurysm identified. Review of Systems Constitutional: no fever and no body aches Respiratory: no cough and no dyspnea Cardiovascular: no chest pain and no claudication Gastrointestinal: + abdominal pain, + nausea and + constipation; no vomiting Physical Exam Constitutional: well developed and + acute distress (pt crying in pain requesitng narcotic analgesia) Respiratory: normal respiratory effort Auscultation: + diminished lung sounds; no wheezes Cardiovascular: Rate/Rhythm: regular rate and regular rhythm Gastrointestinal (Abdomen): Inspection/Auscultation: normal bowel sounds; abdomen not distended Percussion/Palpation: + abdomen tender and abdomen soft; no guarding and abdomen not rigid Skin: no rashes, warm and dry Results & Data Vital Signs (Past 12 Hours) Vital Signs Temp Pulse Resp BP Pulse Ox 03/08/19 07:25 37.1 C 58 L 20 148/81 H 95 03/08/19 02:46 60 151/85 H 99 03/07/19 23:31 36.7 C 65 16 145/78 H 98 Laboratory Results 03/07/19 03/07/19 Range/Units 15:21 09:23 Lactate 1.3 (0.4-2.0) mmol/L Urine Color Yellow Urine Appearance Clear (Clear) Urine pH 6.0 (4.5-7.5) Ur Specific [place] 1.022 (1.000-1.030) Urine Protein Negative (Negative) Urine Glucose (UA) Negative (Negative) Urine Ketones Negative (Negative) Urine Blood Trace H (Negative) Urine Nitrite Negative (Negative) Urine Bilirubin Negative (Negative) Urine Urobilinogen Negative (Negative) Ur Leukocyte Esterase 1+ H (Negative) Urine WBC (Auto) 10-30 H (0-5) /hpf Urine RBC (Auto) 0-4 (0-4) /hpf U Hyaline Cast (Auto) 1-5 (0-5) /lpf U Epithel Cells (Auto) >30 H (0-5) /lpf Urine Bacteria (Auto) Negative (Negative) (1) Nausea & vomiting Vomiting Intractability: non-intractable Vomiting type: unspecified Qualified Code(s): R11.2 - Nausea with vomiting, unspecified (2) Abdominal pain Abdominal location: unspecified location Qualified Code(s): R10.9 - Unspecified abdominal pain
--- NOTE | 2019-03-08 08:46 | Hospitalist Progress Note ---
Date of Service March 08, 2019 Assessment & Plan (1) Nausea & vomiting: (2) Abdominal pain: Pt with history of numerous abdominal and back surgeries comes in with burning abdominal pain- RUQ pain, nausea, vomiting and diarrhea for 1 day. -S/P Pepcid, Zofran, Phenergan, IV normal saline 2 L, IV morphine in ED with continued symptoms -D/D- Gastritis, PUD. CT scan ruled out acute inflammatory conditions. Contributing findings: Anxiety, Depression, Opiod use -Work up - CT scan abdomen/pelvisno acute findings no luekocytosis, LFTS WNL, Lipase WNL, UA: partially positive; KUB- No obstruction, no Urolith, GB US- Neg, CT abd/pelvis= colonic diverticulosis, no diverticulitis or acute findings -NPO, IV Fluids, IV Zofran PRN -PPI BID -Carafate suspension QID -Appreciate GI consult -Follow up- C diff, stool studies- Unable to collect as no BM, Urine cx 03/07- No sig growth PLAN: EGD today (3) Chronic back pain: Pt was chronically on hydrocodone/tylenol 10-325 mg TID , stopped 10 days ago (PCP refilled on 03/07 but pt was unaware). -On morphine IV PRN moderate pain - Tylenol PRN pain (4) Chronic neck pain: see above (5) Anxiety: Continue with home meds (6) Depression: Continue home meds (7) Essential hypertension: -Continue home meds -Control pain -Monitor BP (8) Hyperlipidemia: Holding home statin secondary to GI symptoms (9) Tobacco user: Nicotine patch Cessation encouraged DVT prophylaxis: SCD in case of procedure DISPOSITION Medical mx in progress Pt follows with Dr. Guzman for routine care Subjective Patient is very anxious and tearful. She says all night she had abdominal pain requiring IV narcotics. She also has nausea with no vomiting. Crying throughout the interview. No vomiting since admitted. No bowel movements since admitted. Using IV narcotics Physical Exam Physical Exam: GENERAL- AAOX3, No acute distress; ANXIOUS AND TEARFUL + OBESE + LUNGS- Air entry bilaterally equal. No rales, rhonchi, crackles, wheezes heard. HEART- Regular rate and rhythm. No murmurs ABDOMEN- Soft, generalized tenderness +, non distended, Bowel sounds heard. EXTREMITIES- Good peripheral pulses, no edema Results & Data Vital Signs (Past 12 Hours) Vital Signs Temp Pulse Resp BP Pulse Ox 03/08/19 07:25 37.1 C 58 L 20 148/81 H 95 03/08/19 02:46 60 151/85 H 99 03/07/19 23:31 36.7 C 65 16 145/78 H 98 (1) Chronic back pain Back pain laterality: bilateral Back pain location: low back pain Sciatica presence: without sciatica Qualified Code(s): M54.5 - Low back pain; G89.29 - Other chronic pain (2) Nausea & vomiting Vomiting Intractability: non-intractable Vomiting type: unspecified Qualified Code(s): R11.2 - Nausea with vomiting, unspecified (3) Abdominal pain Abdominal location: unspecified location Qualified Code(s): R10.9 - Unspecified abdominal pain
[2019-03-08] MEDS ORDERED: LISINOPRIL 40 MG TAB PO SCH (09:00)
[2019-03-08] MEDS ORDERED: VENLAFAXINE HCL XR 75 MG CAPXR PO SCH (09:00)
[2019-03-08] MEDS: FAMOTIDINE 20 MG in SYRINGE 3 ML IV SCH (09:34)
[2019-03-08] MEDS: LACTATED RINGER'S 1,000 ML IV SCH (11:06)
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
[2019-03-08] MEDS ORDERED: PROPOFOL IV EMULSION 10 MG/ML 20 ML VIAL IV ONE (12:55)
[2019-03-08] MEDS ORDERED: MIDAZOLAM HCL 1 MG/ML 2ML VIAL ONE (12:55)
[2019-03-08] MEDS ORDERED: ONDANSETRON INJ 2 MG/ML 2 ML VIAL ONE (12:55)
[2019-03-08] MEDS ORDERED: LIDOCAINE HCL 2% 2 ML VIAL/AMP(20MG/ML) INFIL ONE (12:55)
--- NOTE | 2019-03-08 13:34 | GI REPORT ---
Patient Name: Lashawn Ragland Procedure Date: 03/08/2019 1:12 PM Date of : 1955 Admit Type: Inpatient Age: 63 Gender: Female Attending MD: Gabbi Dallas DO Procedure: Upper GI endoscopy Providers: Gabbi Dallas DO Referring MD: Joy Desai Indications: Epigastric abdominal pain, Nausea with vomiting Medicines: Propofol per Anesthesia Complications: No immediate complications. Estimated blood loss: Minimal. Estimated Blood Loss: Estimated blood loss was minimal. Procedure: Pre-Anesthesia Assessment: - Prior to the procedure, a History and Physical was performed, and patient medications, allergies and sensitivities were reviewed. The patient's tolerance of previous anesthesia was reviewed. - The risks and benefits of the procedure and the sedation options and risks were discussed with the patient. All questions were answered and informed consent was obtained. - Patient identification and proposed procedure were verified prior to the procedure by the physician and the nurse. The procedure was verified in the pre-procedure area in the procedure room. - Mental Status Examination: alert and oriented. Airway Examination: normal oropharyngeal airway and neck mobility. Respiratory Examination: clear to auscultation. CV Examination: normal. Abdominal Examination: bowel sounds present, abdomen soft and non-tender, no masses or organomegaly noted. - ASA Grade Assessment: II - A patient with mild systemic disease. After obtaining informed consent, the endoscope was passed under direct vision. Throughout the procedure, the patient's blood pressure, pulse, and oxygen saturations were monitored continuously. The Endoscope was introduced through the mouth, and advanced to the second part of duodenum. The upper GI endoscopy was accomplished without difficulty. The patient tolerated the procedure well. Findings: The esophagus was normal. Mild inflammation characterized by erythema was found in the entire examined stomach. Biopsies were taken with a cold forceps for Helicobacter pylori testing. Verification of patient identification for the specimen was done by the physician and nurse using the patient's name and date. Estimated blood loss was minimal. The examined duodenum was normal. Impression: - Normal esophagus. - Gastritis. Biopsied. - Normal examined duodenum. Recommendation: - Await pathology results. - Follow an antireflux regimen. - Use a proton pump inhibitor PO BID for 8 weeks then once a brissa thereafter. - Return patient to hospital spence for possible discharge same day. COMMENT: The gastritis is NOT the cause of her intermittent nausea, vomit, and abdominal pain. Likely multi-factorial (ie narcotic induced gastroparesis +/- gastritis +/- GERD) Gabbi Dallas D.O. Gabbi Dallas DO 03/08/2019 1:32:20 PM This report has been signed electronically. Note Initiated On: 03/08/2019 1:12 PM Number of Addenda: 0 I attest to the content of the Intraoperative Record and orders documented therein, exceptions below {[id number]}
--- NOTE | 2019-03-08 15:28 | Anesthesiology Progress Note ---
Date of Service March 08, 2019 Anesthesia Post Procedure Vital Signs Vital Signs: Temp Pulse Resp BP BP Pulse Ox 03/08/19 13:53 67 16 162/86 H 98 03/08/19 13:45 65 16 159/83 H 96 03/08/19 13:23 84 16 139/83 95 03/08/19 12:12 37.1 C 68 15 160/84 H 95 03/08/19 11:44 36.7 C 63 18 158/89 H 95 03/08/19 07:25 37.1 C 58 L 20 148/81 H 95 03/08/19 02:46 60 151/85 H 99 03/07/19 23:31 36.7 C 65 16 145/78 H 98 03/07/19 19:40 37.3 C 66 18 124/74 96 03/07/19 17:31 156/78 H Pain Intensity Abdomen: Pain Intensity: 5 Transfer of Care Handoff Completed per policy Notes Mental Status: alert / awake / arousable Patient Amnestic to Procedure: Yes Nausea / Vomiting: adequately controlled Pain: adequately controlled Airway Patency, RR, SpO2: stable & adequate BP & HR: stable & adequate Hydration State: stable & adequate Anesthetic Complications: no major complications apparent and Pt Satisfied with anesthetic care
--- NOTE | 2019-03-08 17:28 | Discharge Summary ---
Date of Service March 08, 2019 Admission HPI Per Admitting Provider Pt is a 63 yo female with complaints of constant central burning abdominal pain, N/V, and diarrhea which started this morning at 3AM. She reports she felt well yesterday but woke up to use the restroom and had severe nausea and vomiting. Notes probably 7-8 episodes of vomiting since 3 AM, anytime anything touches my stomach. She also notes diarrhea for the last few days, 5-6 episodes daily. Notes intermittent chills but afebrile. Is unable to tolerate anything PO therefore has not taken any of her medications since yesterday. This is her second visit to the ER in the last three days for similar symptoms. Her first visit, 03/05/19, she had elevated WBC to 12.07, normal CXR, CT abd/pelvis which showed ? right sided pyelo. She was discharged home from the ER 2 days ago with no new medications as her symptoms had resolved during her stay. She also notes chronic use of opiods as a result of multiple back surgeriesshe ran out of medication 10 days ago. Her PCP renewed an Rx for hydrocodone today but pt was unaware of this. She had been using CBD oil for pain and nausea since stopping the hydrocodone but has not used it in 4-5 days. Three weeks ago was treated by PCP for suspected UTI with Bactrim BID x 10 days, however urine culture was negative. She denies hematemesis or blood in stools. Denies dysuria, change in urination. She denies chest pain, SOB, dizziness, vision changes. No hx of C diff or gastritis. She is a current daily smoker of 1/2 PPD. Occasional alcohol use, not daily. She has a history of hypertension, chronic back and neck pain, anxiety, depression, HLD. Principal Diagnosis 1. Nausea/Vomiting/Abd pain 2. S/P EGD- Gastritis Secondary diagnoses on discharge 1. Chronic back pain 2. Chronic neck pain 3. Anxiety 4. Depression 5. Hypertension 6. Hyperlipidemia 7. Tobacco abuse disorder Discharge Exam GENERAL- AAOX3, No acute distress; ANXIOUS AND TEARFUL + OBESE + LUNGS- Air entry bilaterally equal. No rales, rhonchi, crackles, wheezes heard. HEART- Regular rate and rhythm. No murmurs ABDOMEN- Soft, Non tender , non distended, Bowel sounds heard. EXTREMITIES- Good peripheral pulses, no edema Discharge Data Allergies Allergy/AdvReac Type Severity Reaction Status Date / Time Penicillins Allergy Unknown SWELLING Verified 03/07/19 07:43 EVERYWHERE,ITCHY Consultations 03/07/19 10:47 ED Decision to Admit Stat 03/07/19 14:20 Consult Case Management - Discharge Planning Routine Consult Gastroenterology Routine Procedures Performed Operation Date: 03/08/19 08:20 Actual Procedures p EGD Biopsy Cytology - Gabbi Celena Ordered Studies 03/07/19 07:11 CT angio abdomen pelvis w con Stat 03/07/19 19:53 US gallbladder Urgent Hospital Course (1) Nausea & vomiting: (2) Abdominal pain: Pt with history of numerous abdominal and back surgeries comes in with burning abdominal pain- RUQ pain, nausea, vomiting and diarrhea for 1 day. -S/P Pepcid, Zofran, Phenergan, IV normal saline 2 L, IV morphine in ED with continued symptoms. Contributing factors- Anxiety/depression. Clinically much better and tolerating diet well. -S/P EGD today- Gastritis + Follow up biopsy -PPI BID X 8 WEEKS and than daily -Appreciate GI inputs- cleared for discharge -Work up - CT scan abdomen/pelvisno acute findings no luekocytosis, LFTS WNL, Lipase WNL, UA: partially positive; KUB- No obstruction, no Urolith, GB US- Neg, CT abd/pelvis= colonic diverticulosis, no diverticulitis or acute findings. C diff- not collected as no BM, UA partially positive with urine cx- no sig growth on 03/07 (3) Chronic back pain: Pt was chronically on hydrocodone/tylenol 10-325 mg TID , stopped 10 days ago (PCP refilled on 03/07 but pt was unaware). -On morphine IV PRN moderate pain --> discontinue. - Tylenol PRN pain (4) Chronic neck pain: see above (5) Anxiety: Continue with home meds (6) Depression: Continue home meds (7) Essential hypertension: -Continue home meds -Control pain -Monitor BP (8) Hyperlipidemia: Holding home statin secondary to GI symptoms (9) Tobacco user: Nicotine patch Cessation encouraged DVT prophylaxis: SCD in case of procedure DISPOSITION OK to discharge home today Pt follows with Dr. Guzman for routine care Total Time Total Time Spent Total Time Spent (In Minutes): 35 minutes Discharge Plan Discharge Items Patient Disposition: Home - Self-Care Reason For Visit: N/V Discharge Diagnosis: GASTRITIS Endoscopy came back positive for gastritis. Discharge Goals: Decrease discomfort Activity: Resume your previous activity Non-emergency contact: Primary Care Provider Call non-emergency contact if: your symptoms worsen Follow-up/Referrals: Zion Guzman MD [Primary Care Provider] - (We will call you for follow up appt date/time) Diet: Low Sodium (2gm) Addtl Provider Instructions: MEDICATION CHANGES NEW MEDICATION Protonix 40 mg TWICE A DAY X 8 weeks and than change it to daily QUIT SMOKING Prescriptions: New pantoprazole 40 mg Tablet,Delayed Release (Dr/Ec) 40 mg PO BID 30 Days Qty: 60 RF: 0 Continued aspirin [Aspirin Low Dose] 81 mg Tablet,Delayed Release (Dr/Ec) 81 mg PO QAM RF: 0 baclofen 10 mg Tablet 10 mg PO TID PRN (Reason: Muscle Spasm/Pain) RF: 0 buspirone 15 mg Tablet 15 mg PO TID RF: 0 hydrocodone-acetaminophen 10-325 mg Tablet 1 tab PO Q8H PRN (Reason: Pain) RF: 0 cholecalciferol (vitamin D3) 2,000 unit Tablet 2,000 units PO QAM RF: 0 trazodone 50 mg Tablet 50 mg PO HS RF: 0 venlafaxine 225 mg Tablet Extended Release 24hr 225 mg PO QAM RF: 0 atorvastatin 20 mg tablet 20 mg PO QAM RF: 0 alendronate 70 mg tablet 70 mg PO WK RF: 0 lisinopril 40 mg tablet 40 mg PO QAM RF: 0 ondansetron 4 mg tablet,disintegrating 4 mg PO Q8H PRN (Reason: Nausea) RF: 0 fluticasone propionate [Flonase Allergy Relief] 50 mcg/actuation [place],Suspension 2 spray INTRANASAL DAILY PRN (Reason: Congestion) RF: 0 loratadine 10 mg Tablet 10 mg PO DAILY PRN (Reason: congestion) RF: 0 famotidine 20 mg tablet 20 mg PO BID Qty: 20 RF: 0 Stand-Alone Forms: [facility]/Other Patient Handouts: Gastritis Discharge Orders: Discharge Order (Routine); Ordered 03/08/19 Ordered By: Joy Desai Admission Data Admit Date/Time: 06/05/19 12:19 Attending Provider: Joy Desai Admit Provider: Teja Ludwig Primary Care Provider: Zion Guzman Other Providers: Gabbi Dallas ; Teja Ludwig Service: Medical Other Interventions: Discharge Summary Assessment (RN) Last Done: 03/08/19 13:53 Pending Studies at Discharge: Yes Studies:: FOLLOW UP BIOPSY RESULTS (Gastritis- EGD)
== END 2019-03-08 18:04 | disposition home or self-care (01) | DRG 392 ==
LOC: ED 06:45 → 2N 12:19

== ENCOUNTER 2019-08-03 03:28 | Inpatient (IN) ==
[2019-08-03] MEDS ORDERED: ONDANSETRON INJ 2 MG/ML 2 ML VIAL ONE (03:34)
[2019-08-03] MEDS ORDERED: ONDANSETRON INJ 2 MG/ML 2 ML VIAL IV STA (03:38)
[2019-08-03] MEDS ORDERED: MoRPHine SULFATE 4 MG/ML 1 ML CARP\\VIAL IV STA ×2 (03:38→04:21)
[2019-08-03] MEDS ORDERED: SODIUM CHLORIDE 0.9% 1000ML 1,000 ML IV SCH ×3 (03:45→06:00)
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
[2019-08-03] MEDS ORDERED: FAMOTIDINE 20MG IV PUSH 20 MG/5 ML SYR IV STA (04:21)
[2019-08-03] MEDS ORDERED: PROCHLORPERAZINE 2 ML IV ONE (04:23)
[2019-08-03] MEDS ORDERED: DiphenhydrAMINE HCL 50 MG/ML VIAL IV STA (04:23)
[2019-08-03 04:24] LABS: Basophils # (auto) 0.01 K/uL (0-0.2); Eosinophils # (auto) 0.01 K/uL (0-0.5); Hematocrit (blood only) 43.6 % (37-47); Hemoglobin 15.3 g/dL (12.0-16.0); Immature Granulocytes # (auto) 0.07 K/uL (0.00-0.02); Immature Granulocytes % (auto) 0.3 %; Lymphocytes # (auto) 1.49 K/uL (1.2-3.4); Mean Corpuscular Hemoglobin 31.3 pg (25-34); Mean Corpuscular Hgb Conc 35.1 g/dL (32-36); Mean Corpuscular Volume 89.2 fL (80-100); Mean Platelet Volume 8.7 fL (7.4-10.4); Monocytes # (auto) 0.71 K/uL (0.11-0.59); Monocytes % (auto) 3.4 %; Neutrophils # (auto) 18.86 K/uL (1.4-6.5); Neutrophils % (auto) 89.3 %; Platelet Count 358 K/uL (130-400); RDW Coefficient of Variation 13.7 % (11.5-14.5); RDW Standard Deviation 45.1 fL (36.4-46.3); Red Blood Count 4.89 M/uL (4.2-5.4); White Blood Count 21.15 K/uL (4.8-10.8)
[2019-08-03] MEDS ORDERED: PROCHLORPERAZINE 5 MG/ML 2 ML VIAL ONE (04:24)
[2019-08-03 04:42] LABS: Albumin Level 4.5 gm/dl (3.4-5.0); BUN Creatinine Ratio 15.8 (10-20); Calcium 9.4 mg/dl (8.5-10.1); Creatinine Clr Calc Pharmacy 60.2 ml/min; Est GFR (African American) 65.8; Est GFR (Non-African American) 56.7; Magnesium 1.9 mg/dl (1.8-2.4); Potassium 3.7 mmol/L (3.5-5.1)
[2019-08-03 04:45] LABS: Albumin Globulin Ratio 1.1 (0.9-2); Bilirubin,Total 0.5 mg/dl (0.2-1); Total Protein 8.5 gm/dl (6.4-8.2)
[2019-08-03] MEDS ORDERED: OPTIRAY 320 125ml IV PRN (05:25)
[2019-08-03] MEDS ORDERED: metroNIDAZOLE 500 MG/100 ML BAG IV STA (05:50)
[2019-08-03] MEDS ORDERED: CIPROFLOXACIN 400 MG/200 ML BAG IV STA (05:50)
--- NOTE | 2019-08-03 06:06 | Emergency Department Note ---
ED Visit Note I saw this patient in conjunction with Oliver Reardon PA-C. I agree with his decision making and treatment plan. The patient presents to the emergency department with significant abdominal pain. On laboratory testing, the patient had a lactate of 6 and a white blood cell count of 21,000 with a left shift. No obvious source of infection has been determined as of yet. We are still awaiting a urine specimen. The patient denies any urinary symptoms. The patient does feel moderately better here in the emergency department. However, I remain concerned about her significant leukocytosis and elevated lactate. This is concerning for sepsis. The patient had blood cultures obtained and will be started on broad-spectrum antibiotics. On physical exam, the patient's abdomen exam is benign. The case was discussed with the [facility] and they will evaluate for further care. .
[2019-08-03 06:44] LABS: Appearance Urine Clear (Clear); Bilirubin Urine Negative (Negative); Blood Urine 1+ (Negative); Color Urine Yellow; Glucose Urine UA Negative (Negative); Ketones Urine Trace (Negative); Leukocyte Esterase Urine Negative (Negative); Nitrite Urine Negative (Negative); Protein Urine 2+ (Negative); Urobilinogen Urine Negative (Negative); pH Urine 6.5 (4.5-7.5)
--- NOTE | 2019-08-03 06:46 | XRay Report ---
XR chest 1V portable CLINICAL HISTORY: emesis, abd pain COMPARISON STUDY: 03/05/2019 FINDINGS: The cardiac and mediastinal contours are normal. There is no evidence of focal pulmonary co nsolidation. There is no evidence of failure. No pleural effusions are visualized.[Postsurgical bell es are present within the thoracic spine and cervical spine. There is no pneumothorax. There is no fr ee intraperitoneal air. Arthritic changes are present within the shoulders. IMPRESSION: No active disease in the chest. Electronically signed by: Navin Puentes M.D. 08/03/2019 6:45 AM
[2019-08-03 06:50] LABS: Bacteria Urine Negative (Negative); WBC Urine 0-5 /hpf (0-5)
--- NOTE | 2019-08-03 07:06 | CT Scan Report ---
Study: CT angiogram of the abdomen. HISTORY: Pain. Nausea. Vomiting. COMPARISON: 03/07/2019 FINDINGS: Atherosclerotic change of the arterial structures of the abdomen and pelvis. Mild to moderate scattered plaque formation is present. No evidence for high-grade stenosis. No evidence for aneurysm. Postoperative changes of the lumbar spine consistent with posterior laminectomy and fusion changes as well as a low thoracolumbar kyphoplasty at L1 1 and T12. Nonobstructive bowel pattern. No evidence for bowel wall ischemic change. The bladder is midline. IMPRESSION: 1. Mild scattered atherosclerotic plaque formation.. 2. No evidence for a significant stenotic process. 3. Nonobstructive bowel pattern with the abdomen and pelvis otherwise negative. Electronically signed by: Joey Vang M.D. 08/03/2019 7:05 AM
[2019-08-03] MEDS ORDERED: ACETAMINOPHEN 325 MG TAB PO PRN (08:25)
[2019-08-03] MEDS ORDERED: FLUTICASONE PROPIONATE NA SPR 16 GM BTL PRN (08:25)
[2019-08-03] MEDS ORDERED: NITROGLYCERIN SL 0.4 MG/TAB TAB SL PRN (08:25)
[2019-08-03] MEDS: SODIUM CHLORIDE 0.9% 1000ML 1,000 ML IV SCH ×2 (08:25→16:23)
[2019-08-03] MEDS ORDERED: LORATADINE 10 MG TAB PO PRN (08:25)
[2019-08-03] MEDS: ASPIRIN 81 MG ECTAB PO SCH (09:18)
[2019-08-03] MEDS: OXYCODONE HCL 10 MG TABCR (OXYCONTIN) PO SCH ×2 (09:18→20:05)
[2019-08-03] MEDS: BusPIRone 15 MG TAB PO SCH ×3 (09:19→20:05)
[2019-08-03] MEDS: BACLOFEN 10 MG TAB PO PRN (09:19)
[2019-08-03] MEDS: CHOLECALCIFEROL 1,000 UNITS TAB PO SCH (09:19)
[2019-08-03] MEDS: ATORVASTATIN 20 MG TAB PO SCH (09:20)
[2019-08-03] MEDS: VENLAFAXINE HCL XR 75 MG CAPXR PO SCH (09:20)
[2019-08-03] MEDS: LISINOPRIL 40 MG TAB PO SCH (09:20)
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
[2019-08-03] MEDS: metroNIDAZOLE 500 MG/100 ML BAG IV SCH ×2 (14:28→22:16)
[2019-08-03] MEDS: HYDROCODONE/ACETAMOPHEN 5/325MG TAB PO PRN (15:38)
[2019-08-03] MEDS: CIPROFLOXACIN 400 MG/200 ML BAG IV SCH (18:15)
[2019-08-03] MEDS: TRAZODONE HCL 50 MG TAB PO SCH (20:05)
[2019-08-03] MEDS: FAMOTIDINE 20 MG in SYRINGE 3 ML IV SCH (20:09)
[2019-08-03] MEDS ORDERED: hydrOXYzine HCl 10 MG TAB PO PRN (21:00)
--- NOTE | 2019-08-03 22:05 | Communication Note ---
Date of Service: August 03, 2019 Patient admitted this morning with abdominal pain, nausea, vomiting. WBC and lactate elevated, no acute findings on CT. Rechecked this evening. Feels much better. Tolerated clear liquids & would like to advance diet. Advance diet as tolerated. Recheck labs in a.m.
[2019-08-04] MEDS: SODIUM CHLORIDE 0.9% 1000ML 1,000 ML IV SCH ×3 (00:31→17:28)
[2019-08-04] MEDS: HYDROmorphone INJ 0.5 MG/0.5 ML SYR IV PRN ×4 (03:12→23:15)
[2019-08-04 05:43] LABS: Basophils # (auto) 0.03 K/uL (0-0.2); Basophils % (auto) 0.3 %; Eosinophils # (auto) 0.32 K/uL (0-0.5); Eosinophils % (auto) 2.9 %; Hematocrit (blood only) 37.4 % (37-47); Immature Granulocytes # (auto) 0.02 K/uL (0.00-0.02); Immature Granulocytes % (auto) 0.2 %; Lymphocytes # (auto) 3.81 K/uL (1.2-3.4); Lymphocytes % (auto) 34.1 %; Mean Corpuscular Hemoglobin 30.3 pg (25-34); Mean Corpuscular Hgb Conc 32.1 g/dL (32-36); Mean Corpuscular Volume 94.4 fL (80-100); Mean Platelet Volume 8.6 fL (7.4-10.4); Monocytes # (auto) 0.95 K/uL (0.11-0.59); Monocytes % (auto) 8.5 %; Neutrophils # (auto) 6.03 K/uL (1.4-6.5); Platelet Count 237 K/uL (130-400); RDW Coefficient of Variation 13.9 % (11.5-14.5); RDW Standard Deviation 48.4 fL (36.4-46.3); Red Blood Count 3.96 M/uL (4.2-5.4); White Blood Count 11.16 K/uL (4.8-10.8)
[2019-08-04] MEDS: CIPROFLOXACIN 400 MG/200 ML BAG IV SCH ×2 (06:00→17:28)
[2019-08-04] MEDS: metroNIDAZOLE 500 MG/100 ML BAG IV SCH ×3 (06:00→22:02)
[2019-08-04] MEDS: ONDANSETRON INJ 2 MG/ML 2 ML VIAL IV PRN ×2 (06:00→20:28)
[2019-08-04 06:11] LABS: BUN Creatinine Ratio 19.3 (10-20); Calcium 7.4 mg/dl (8.5-10.1); Creatinine Clr Calc Pharmacy 97.2 ml/min; Est GFR (African American) 110.4; Est GFR (Non-African American) 95.3; Potassium 3.8 mmol/L (3.5-5.1)
[2019-08-04] MEDS: LISINOPRIL 40 MG TAB PO SCH (07:57)
[2019-08-04] MEDS: VENLAFAXINE HCL XR 75 MG CAPXR PO SCH (07:57)
[2019-08-04] MEDS: FAMOTIDINE 20 MG in SYRINGE 3 ML IV SCH ×2 (07:57→22:02)
[2019-08-04] MEDS: ATORVASTATIN 20 MG TAB PO SCH (07:58)
[2019-08-04] MEDS: CHOLECALCIFEROL 1,000 UNITS TAB PO SCH (07:58)
[2019-08-04] MEDS: BusPIRone 15 MG TAB PO SCH ×3 (07:59→21:59)
[2019-08-04] MEDS: ASPIRIN 81 MG ECTAB PO SCH (07:59)
[2019-08-04] MEDS: OXYCODONE HCL 10 MG TABCR (OXYCONTIN) PO SCH ×2 (08:02→21:58)
--- NOTE | 2019-08-04 09:29 | Gastroenterology Progress Note ---
Date of Service August 04, 2019 Assessment & Plan (1) Abdominal pain: Patient with recurrent right-sided discomfort associated with postprandial nausea and vomiting with fatty foods. Perhaps the patient's symptoms are actually biliary colic. Recommendations Consider right upper quadrant ultrasound and perhaps a HIDA scan Consider a general surgery consultation Subjective The patient notes that she does tolerate a liquid diet without difficulty. She did have recurrent nausea and vomiting with a solid meal that contained meat and gravy products. She describes having right-sided abdominal discomfort. Review of Systems Constitutional: no sweats Eyes: no diplopia Respiratory: no change in sputum Cardiovascular: no chest pain with activity Gastrointestinal: + bloating, + nausea, + vomiting and + cramping; no hemate mesis Physical Exam Constitutional: WD/WN, vitals as above Eyes: PERRL, conjunctivae normal, anicteric sclerae Neck: trachea midline, no thyromegaly Respiratory: normal respiratory effort; does not use accessory muscles Cardiovascular: Rate/Rhythm: regular rate Gastrointestinal (Abdomen): Inspection/Auscultation: abdomen not distended Percussion/Palpation: + abdomen tender; no guarding and abdomen not rigid Dominant right-sided abdominal tenderness Results & Data Vital Signs (Past 12 Hours) Vital Signs Temp Pulse Pulse Resp BP BP Pulse Ox 08/04/19 07:49 36.6 C 61 19 132/72 92 08/04/19 07:21 62 08/04/19 02:51 36.5 C 64 18 118/70 91 08/03/19 23:57 71 08/03/19 23:03 36.8 C 75 17 92/49 L 93 Laboratory Results Laboratory Results - last 24 hr 08/03/19 08/04/19 08/04/19 11:52 05:19 05:19 WBC 11.16 H RBC 3.96 L Hgb 12.0 D Hct 37.4 MCV 94.4 D MCH 30.3 MCHC 32.1 RDW Std Deviation 48.4 H RDW Coeff of Jimi 13.9 Plt Count 237 MPV 8.6 Immature Gran % (Auto) 0.2 Neut % (Auto) 54.0 Lymph % (Auto) 34.1 Brooks % (Auto) 8.5 Eos % (Auto) 2.9 Baso % (Auto) 0.3 Immature Gran # (Auto) 0.02 Neut # (Auto) 6.03 Lymph # (Auto) 3.81 H Brooks # (Auto) 0.95 H Eos # (Auto) 0.32 Baso # (Auto) 0.03 Sodium 143 D Potassium 3.8 Chloride 112 H Carbon Dioxide 26 Anion Gap 5.0 BUN 12 Creatinine 0.62 D Est Cr Clr Drug Dosing 97.2 Est GFR ( Amer) 110.4 Est GFR (Non-Af Amer) 95.3 BUN/Creatinine Ratio 19.3 Glucose 88 Lactate 1.6 Calcium 7.4 L D Magnesium 2.0
[2019-08-04] MEDS: BACLOFEN 10 MG TAB PO PRN ×2 (11:43→16:00)
[2019-08-04] MEDS: HYDROCODONE/ACETAMOPHEN 5/325MG TAB PO PRN (11:46)
--- NOTE | 2019-08-04 17:09 | Ultrasound Report ---
US gallbladder HISTORY: 63 years-old Female evaluation for gallstones acute epigastric abdominal pain COMPARISON: CT abdomen and pelvis 08/03/2019 TECHNIQUE: Multiple real-time sonographic images of the abdominal right upper quadrant were obtained assessing grayscale appearance and color flow FINDINGS: Study is limited secondary to obscuring bowel gas. The visualized pancreas appears unremarkable. The liver is prominent in size and demonstrates increased echogenicity suggestive of hepatic steatosis. N o focal hepatic mass lesion or intrahepatic biliary ductal dilation. Gallbladder is unremarkable with out cholelithiasis, wall thickening or pericholecystic fluid. Sonographic Fisher sign reported as neg ative. Common bile duct is normal, 5 mm. Imaged right kidney is unremarkable without hydronephrosis. IMPRESSION: 1. No cholelithiasis or sonographic evidence of acute cholecystitis. 2. No biliary ductal dilation. The above report was generated using voice recognition software. It may contain grammatical, syntax o r spelling errors. Electronically signed by: Yo Gonzalez M.D. 08/04/2019 5:08 PM
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
--- NOTE | 2019-08-04 20:01 | Hospitalist Progress Note ---
Date of Service August 04, 2019 Assessment & Plan (1) Abdominal pain: Presented with severe epigastric pain with nausea and vomiting. No acute findings on CTA of abdomen. WBC's and lactic acid were elevated- improved. GI and General Surgery consulted. Symptoms improved yesterday, but worsened when diet advanced. GB US negative. Check CT abdomen and pelvis with oral and IV contrast. Continue empiric IV antibiotics and famotidine. (2) Essential hypertension: Continue lisinopril. (3) DVT prophylaxis: SCD's. (4) Discharge planning issues: Anticipated discharge to home. Family Medicine follow-up with Dr. Guzman. Subjective Recheck for abdominal pain. Patient seen in their room around 1510. Worsening nausea and epigastric / RUQ discomfort this morning. No further emesis. Has spinal stenosis and having some back pain which she attributes to hospital bed. Review of Systems: Constitutional- no fever. Cardiac- no chest pain. Pulmonary- no cough or SOB. GI- as noted above. - no urinary symptoms. Otherwise, as noted above. Physical Exam Constitutional: no acute distress Respiratory: no respiratory distress Auscultation: lungs clear to auscultation bilaterally Cardiovascular: Rate/Rhythm: regular rate and regular rhythm Heart Sounds: no gallop, no murmur and no cardiac rub Vessels: no JVD Extremities: no calf tenderness and no edema Gastrointestinal (Abdomen): Inspection/Auscultation: normal bowel sounds; abdomen not distended Percussion/Palpation: + abdomen tender (mild epigastri c) and abdomen soft Skin: no rashes, warm and dry Psychiatric: Orientation: alert and oriented x 3 Results & Data Vital Signs (Past 12 Hours) Vital Signs Temp Pulse Pulse Resp BP BP Pulse Ox 08/04/19 19:43 36.6 C 63 19 164/81 H 95 08/04/19 16:00 36.6 C 79 18 185/84 H 96 08/04/19 15:43 72 08/04/19 11:40 36.9 C 68 16 150/75 H 95 Laboratory Results Laboratory Results - last 24 hr 08/04/19 08/04/19 05:19 05:19 WBC 11.16 H RBC 3.96 L Hgb 12.0 D Hct 37.4 MCV 94.4 D MCH 30.3 MCHC 32.1 RDW Std Deviation 48.4 H RDW Coeff of Jimi 13.9 Plt Count 237 MPV 8.6 Immature Gran % (Auto) 0.2 Neut % (Auto) 54.0 Lymph % (Auto) 34.1 [place] % (Auto) 8.5 Eos % (Auto) 2.9 Baso % (Auto) 0.3 Immature Gran # (Auto) 0.02 Neut # (Auto) 6.03 Lymph # (Auto) 3.81 H [place] # (Auto) 0.95 H Eos # (Auto) 0.32 Baso # (Auto) 0.03 Sodium 143 D Potassium 3.8 Chloride 112 H Carbon Dioxide 26 Anion Gap 5.0 BUN 12 Creatinine 0.62 D Est Cr Clr Drug Dosing 97.2 Est GFR ( Amer) 110.4 Est GFR (Non-Af Amer) 95.3 BUN/Creatinine Ratio 19.3 Glucose 88 Calcium 7.4 L D Magnesium 2.0 Diagnostic Findings US ABDOMEN RUQ FINDINGS: Study is limited secondary to obscuring bowel gas. The visualized pancreas appears unremarkable. The liver is prominent in size and demonstrates increased echogenicity suggestive of hepatic steatosis. No focal hepatic mass lesion or intrahepatic biliary ductal dilation. Gallbladder is unremarkable without cholelithiasis, wall thickening or pericholecystic fluid. Sonographic Fisher sign reported as negative. Common bile duct is normal, 5 mm. Imaged right kidney is unremarkable without hydronephrosis. IMPRESSION: 1. No cholelithiasis or sonographic evidence of acute cholecystitis. 2. No biliary ductal dilation. The above report was generated using voice recognition software. It may contain grammatical, syntax or spelling errors. Electronically signed by: Yo Gonzalez M.D.
[2019-08-04] MEDS ORDERED: methylPREDNISolone 125 MG/2 ML VIAL IV STA (20:20)
[2019-08-04] MEDS ORDERED: DiphenhydrAMINE HCL 50 MG/ML VIAL IV STA ×2 (20:20→20:22)
[2019-08-04] MEDS ORDERED: methylPREDNISolone 60 MG in SYRINGE 0 ML IV ONE (20:45)
[2019-08-04] MEDS ORDERED: IOVERSOL 100ml IV PRN ×2 (21:34→21:50)
[2019-08-04] MEDS: TRAZODONE HCL 50 MG TAB PO SCH (21:59)
--- NOTE | 2019-08-04 22:05 | CT Scan Report ---
ABDOMEN AND PELVIS CT WITH IV AND ORAL CONTRAST CT DOSE: 1073.92 mGy.cm HISTORY: Acute severe generalized abdominal pain severe abdominal pain TECHNIQUE: Multiaxial CT images of the abdomen and pelvis were performed following the IV administrat ion of 90 cc of Optiray 320 and oral contrast. A dose lowering technique was utilized adhering to th e principles of ALARA. COMPARISON STUDY: CTA abdomen and pelvis 08/03/2019, right upper quadrant abdominal ultrasound 08/04/20, CT 03/07/2019. FINDINGS: Trace pleural effusions. Mild subsegmental bibasilar atelectasis. There is no pneumatosis or pneumope ritoneum. Imaged inferior cardiac chambers are unremarkable with coronary arterial calcifications. Il l-defined indeterminate area of decreased attenuation of the right hepatic lobe adjacent to the samantha hepatis measures up to 10 mm. There is no intrahepatic biliary ductal dilation. Gallbladder, spleen, pancreas and adrenal glands are unremarkable. 7 mm hypodense lesion of the superior pole left kidney is too small to characterize. No renal or ureteral calculi or obstructive uropathy. Ureters are unre markable. Mild wall thickening with partial distention of the urinary bladder. Hysterectomy. No adnex al mass lesion. Extensive calcified plaque the abdominal aorta without aneurysm. No adenopathy. No bowel obstruction or bowel wall thickening identified. No ascites or mesenteric inflammation. Appe ndectomy. Soft tissues are unremarkable. Degenerative changes of the spine, pelvis and hips. Deminera lized appearance of the bones. Spacer device noted between the L3-L4 spinous processes. Multilevel la minectomy changes. Remote compression deformity with kyphoplasty changes at T12 and L1. Unchanged ret ropulsion at the L1 level. Remote L2, L4 and L5 compression deformities. IMPRESSION: 1. No acute intra-abdominal or intrapelvic abnormality. 2. No bowel obstruction or bowel wall thickening. 3. Prior appendectomy and hysterectomy. 4. Multiple remote compression deformities as above. Electronically signed by: Yo Gonzalez M.D. 08/04/2019 10:03 PM
[2019-08-05] MEDS: HYDROmorphone INJ 0.5 MG/0.5 ML SYR IV PRN (03:44)
[2019-08-05] MEDS: ONDANSETRON INJ 2 MG/ML 2 ML VIAL IV PRN (03:44)
[2019-08-05] MEDS: SODIUM CHLORIDE 0.9% 1000ML 1,000 ML IV SCH ×2 (03:53→12:42)
[2019-08-05] MEDS: metroNIDAZOLE 500 MG/100 ML BAG IV SCH ×2 (06:17→14:00)
[2019-08-05] MEDS: CIPROFLOXACIN 400 MG/200 ML BAG IV SCH (06:21)
[2019-08-05 07:07] LABS: Hematocrit (blood only) 37.6 % (37-47); Hemoglobin 12.5 g/dL (12.0-16.0); Mean Corpuscular Hgb Conc 33.2 g/dL (32-36); Mean Corpuscular Volume 93.3 fL (80-100); Mean Platelet Volume 8.7 fL (7.4-10.4); Platelet Count 245 K/uL (130-400); RDW Coefficient of Variation 13.3 % (11.5-14.5); RDW Standard Deviation 45.7 fL (36.4-46.3); Red Blood Count 4.03 M/uL (4.2-5.4); White Blood Count 10.46 K/uL (4.8-10.8)
[2019-08-05 07:37] LABS: Alanine Aminotransferase 20 U/L (12-78); Albumin Level 3.1 gm/dl (3.4-5.0); Aspartate Aminotransferase 17 U/L (15-37); BUN Creatinine Ratio 11.6 (10-20); Bilirubin Direct < 0.1 mg/dl (0-0.2); Blood Urea Nitrogen 8 mg/dl (7-18); Calcium 8.2 mg/dl (8.5-10.1); Carbon Dioxide 24 mmol/L (21-32); Chloride 107 mmol/L (98-107); Creatinine Clr Calc Pharmacy 85.7 ml/min; Est GFR (African American) 100.9; Glucose 196 mg/dl (70-99); Potassium 4.1 mmol/L (3.5-5.1); Sodium 139 mmol/L (136-145)
[2019-08-05 07:47] LABS: Albumin Globulin Ratio 1.1 (0.9-2); Alkaline Phosphatase 61 U/L (45-117); Bilirubin,Total 0.2 mg/dl (0.2-1); Globulin 2.8 gm/dl (2.5-4.0); Total Protein 5.9 gm/dl (6.4-8.2)
[2019-08-05] MEDS: ASPIRIN 81 MG ECTAB PO SCH (07:54)
[2019-08-05] MEDS: BusPIRone 15 MG TAB PO SCH ×2 (07:54→13:59)
[2019-08-05] MEDS: FAMOTIDINE 20 MG in SYRINGE 3 ML IV SCH (07:54)
[2019-08-05] MEDS: LISINOPRIL 40 MG TAB PO SCH (07:54)
[2019-08-05] MEDS: ATORVASTATIN 20 MG TAB PO SCH (07:55)
[2019-08-05] MEDS: CHOLECALCIFEROL 1,000 UNITS TAB PO SCH (07:55)
[2019-08-05] MEDS: VENLAFAXINE HCL XR 75 MG CAPXR PO SCH (07:55)
[2019-08-05] MEDS: OXYCODONE HCL 10 MG TABCR (OXYCONTIN) PO SCH (07:59)
[2019-08-05] MEDS ORDERED: VANCOMYCIN CONSULT ACTIVE PRN ×2 (07:59)
[2019-08-05] MEDS ORDERED: VANCOMYCIN HCL 1,000 MG in SODIUM CHLORIDE 0.9% 250 ML IV SCH (08:00)
[2019-08-05] MEDS: BACLOFEN 10 MG TAB PO PRN (08:11)
[2019-08-05] MEDS ORDERED: VANCOMYCIN HCL 2,250 MG in SODIUM CHLORIDE 0.9% 500 ML IV ONE (09:00)
[2019-08-05] MEDS ORDERED: PANTOprazole 40 MG TAB PO STA (10:02)
--- NOTE | 2019-08-05 10:02 | Gastroenterology Progress Note ---
Date of Service August 05, 2019 Assessment & Plan (1) Abdominal pain: Patient now tolerating PO, given history would wonder about the potential for GERD. Recomendations Omeprazole 40 mg per day (or equivalent) OP f/u in 6 to 8 weeks with one of our [employer]ATIONAL IN[employer]STIGATIVE [employer]OD[employer]ER or PAs Please call with questions. Subjective The patient notes tolerating PO this am. She was previously on an H2 richmond for HB like symptoms which was stopped after a drug recall several months ago. Review of Systems Constitutional: no sweats Eyes: no diplopia Respiratory: no change in sputum and no hemoptysis Cardiovascular: no chest pain with activity Gastrointestinal: + heartburn; no early satiety, no nausea and no dysphagia Results & Data Vital Signs (Past 12 Hours) Vital Signs Temp Pulse Pulse Resp BP BP Pulse Ox 08/05/19 07:32 37.3 C 78 16 151/72 H 95 08/05/19 07:08 74 08/05/19 02:05 72 08/04/19 23:48 36.7 C 68 19 168/88 H 95 Laboratory Results Laboratory Results - last 24 hr 08/03/19 08/05/19 08/05/19 06:09 06:45 06:45 WBC 10.46 RBC 4.03 L Hgb 12.5 Hct 37.6 MCV 93.3 MCH 31.0 MCHC 33.2 RDW Std Deviation 45.7 RDW Coeff of Jimi 13.3 Plt Count 245 MPV 8.7 Sodium 139 Potassium 4.1 Chloride 107 Carbon Dioxide 24 Anion Gap 8.0 BUN 8 Creatinine 0.73 Est Cr Clr Drug Dosing 85.7 Est GFR ( Amer) 100.9 Est GFR (Non-Af Amer) 87.0 BUN/Creatinine Ratio 11.6 Glucose 196 H Calcium 8.2 L Total Bilirubin 0.2 Direct Bilirubin < 0.1 AST 17 ALT 20 Alkaline Phosphatase 61 Total Protein 5.9 L Albumin 3.1 L Globulin 2.8 Albumin/Globulin Ratio 1.1 Bld Cult Staph aureus PCR Negative Blood Culture MRSA PCR Negative Diagnostic Findings HISTORY: 63 years-old Female evaluation for gallstones acute epigastric abdominal pain COMPARISON: CT abdomen and pelvis 08/03/2019 TECHNIQUE: Multiple real-time sonographic images of the abdominal right upper quadrant were obtained assessing grayscale appearance and color flow FINDINGS: Study is limited secondary to obscuring bowel gas. The visualized pancreas appears unremarkable. The liver is prominent in size and demonstrates increased echogenicity suggestive of hepatic steatosis. No focal hepatic mass lesion or intrahepatic biliary ductal dilation. Gallbladder is unremarkable without c holelithiasis, wall thickening or pericholecystic fluid. Sonographic Fisher sign reported as negative. Common bile duct is normal, 5 mm. Imaged right kidney is unremarkable without hydronephrosis. IMPRESSION: 1. No cholelithiasis or sonographic evidence of acute cholecystitis. 2. No biliary ductal dilation. ABDOMEN AND PELVIS CT WITH IV AND ORAL CONTRAST CT DOSE: 1073.92 mGy.cm HISTORY: Acute severe generalized abdominal pain severe abdominal pain TECHNIQUE: Multiaxial CT images of the abdomen and pelvis were performed following the IV administration of 90 cc of Optiray 320 and oral contrast. A dose lowering technique was utilized adhering to the principles of ALARA. COMPARISON STUDY: CTA abdomen and pelvis 08/03/2019, right upper quadrant abdominal ultrasound 08/04/2019, CT 03/07/2019. FINDINGS: Trace pleural effusions. Mild subsegmental bibasilar atelectasis. There is no pneumatosis or pneumoperitoneum. Imaged inferior cardiac chambers are unremarkable with coronary arterial calcifications. Ill-defined indeterminate area of decreased attenuation of the right hepatic lobe adjacent to the samantha hepatis measures up to 10 mm. There is no intrahepatic biliary ductal dilation. Gallbladder, spleen, pancreas and adrenal glands are unremarkable. 7 mm hypodense lesion of the superior pole left kidney is too small to characterize. No renal or ureteral calculi or obstructive uropathy. Ureters are unremarkable. Mild wall thickening with partial distention of the urinary bladder. Hysterectomy. No adnexal mass lesion. Extensive calcified plaque the abdominal aorta without aneurysm. No adenopathy. No bowel obstruction or bowel wall thickening identified. No ascites or mesenteric inflammation. Appendectomy. Soft tissues are unremarkable. Degenerative changes of the spine, pelvis and hips. Demineralized appearance of the bones. Spacer device noted between the L3-L4 spinous processes. Multilevel laminectomy changes. Remote compression deformity with kyphoplasty changes at T1 2 and L1. Unchanged retropulsion at the L1 level. Remote L2, L4 and L5 compression deformities. IMPRESSION: 1. No acute intra-abdominal or intrapelvic abnormality. 2. No bowel obstruction or bowel wall thickening. 3. Prior appendectomy and hysterectomy. 4. Multiple remote compression deformities as above.
[2019-08-05] MEDS: HYDROCODONE/ACETAMOPHEN 5/325MG TAB PO PRN (11:13)
--- NOTE | 2019-08-05 11:49 | Surgery Progress Note ---
Date of Service August 05, 2019 Assessment & Plan (1) Abdominal pain: This patient has upper abdominal discomfort that was exacerbated after an episode of vomiting. She also has nausea. She had previous episodes of this. H2-richmond was helpful at that time but she stopped the H2-richmond 2 weeks ago. Ultrasound of the right upper quadrant was normal. This is unlikely to be related to her gallbladder. CT scan showing no acute intra-abdominal pathology restarted on PPI this morning Vitals stable afebrile, t. bili, lfts wnl Blood culture 1/2 with gram positive cocci, could be contaminant Plan: There is no evidence of biliary origin for patients pain. Could be upper GI etiology given the fact that she stopped H2 richmond and pain and nausea returned. No surgical indication at this time Okay from surgical standpoint for discharge with GI follow-up as outpatient Discussed with Dr. Estela Zapata has seen and examined pt, agrees with above Supervising Physician Co-Signing Physician Notes Patient is feeling better today. I interviewed and examined this patient I agree with the above note. There is no evidence of acute cholecystitis. Subjective feeling better today had some nausea this morning but no vomiting tolerated regular diet for breakfast abdominal pain improved and not has severe Physical Exam Constitutional: WD/WN, vitals as above no acute distress Gastrointestinal (Abdomen): Inspection/Auscultation: abdomen normal to inspection; abdomen not distended Percussion/Palpation: + abdomen tender (mild tenderness in RUQ on deep palpation) and abdomen soft; no guarding and abdomen not rigid Skin: no rashes, warm and dry Psychiatric: A+Ox3, euthymic affect Results & Data Vital Signs (Past 12 Hours) Vital Signs Temp Pulse Pulse Resp BP Pulse Ox 08/05/19 11: 36.5 C 74 16 142/82 H 91 08/05/19 07:32 37.3 C 78 16 151/72 H 95 08/05/19 07:08 74 08/05/19 02:05 72 Laboratory Results 08/05/19 08/05/19 08/03/19 Range/Units 06:45 06:45 06:09 WBC 10.46 (4.8-10.8) K/uL RBC 4.03 L (4.2-5.4) M/uL Hgb 12.5 (12.0-16.0) g/dL Hct 37.6 (37-47) % MCV 93.3 (80-100) fL MCH 31.0 (25-34) pg MCHC 33.2 (32-36) g/dL RDW Std Deviation 45.7 (36.4-46.3) fL RDW Coeff of Jimi 13.3 (11.5-14.5) % Plt Count 245 (130-400) K/uL MPV 8.7 (7.4-10.4) fL Sodium 139 (136-145) mmol/L Potassium 4.1 (3.5-5.1) mmol/L Chloride 107 (98-107) mmol/L Carbon Dioxide 24 (21-32) mmol/L Anion Gap 8.0 (3-11) BUN 8 (7-18) mg/dl Creatinine 0.73 (0.6-1.2) mg/dl Est Cr Clr Drug Dosing 85.7 ml/min Est GFR ( Amer) 100.9 Est GFR (Non-Af Amer) 87.0 BUN/Creatinine Ratio 11.6 (10-20) Glucose 196 H (70-99) mg/dl Calcium 8.2 L (8.5-10.1) mg/dl Total Bilirubin 0.2 (0.2-1) mg/dl Direct Bilirubin < 0.1 (0-0.2) mg/dl AST 17 (15-37) U/L ALT 20 (12-78) U/L Alkaline Phosphatase 61 (45-117) U/L Total Protein 5.9 L (6.4-8.2) gm/dl Albumin 3.1 L (3.4-5.0) gm/dl Globulin 2.8 (2.5-4.0) gm/dl Albumin/Globulin Ratio 1.1 (0.9-2) Bld Cult Staph aureus PCR Negative (Negative) Blood Culture MRSA PCR Negative (Negative) Diagnostic Findings ABDOMEN AND PELVIS CT WITH IV AND ORAL CONTRAST CT DOSE: 1073.92 mGy.cm HISTORY: Acute severe generalized abdominal pain severe abdominal pain TECHNIQUE: Multiaxial CT images of the abdomen and pelvis were performed following the IV administration of 90 cc of Optiray 320 and oral contrast. A dose lowering technique was utilized adhering to the principles of ALARA. COMPARISON STUDY: CTA abdomen and pelvis 08/03/2019, right upper quadrant abdominal ultrasound 08/04/2019, CT 03/07/2019. FINDINGS: Trace pleural effusions. Mild subsegmental bibasilar atelectasis. There is no pneumatosis or pneumoperitoneum. Imaged inferior cardiac chambers are unremarkable with coronary arterial calcifications. Ill-defined indeterminate area of decreased attenuation of the right hepatic lobe adjacent to the samantha hepatis measures up to 10 mm. There is no intrahepatic biliary ductal dilation. Gallbladder, spleen, pancreas and adrenal glands are unremarkable. 7 mm hypodense lesion of the superior pole left kidney is too small to characterize. No renal or ureteral calculi or obstructive uropathy. Ureters are unremarkable. Mild wall thickening with partial distention of the urinary bladder. Hysterectomy. No adnexal mass lesion. Extensive calcified plaque the abdominal aorta without aneurysm. No adenopathy. No bowel obstruction or bowel wall thickening identified. No ascites or mesenteric inflammation. Appendectomy. Soft tissues are unremarkable. Degenerative changes of the spine, pelvis and hips. Demineralized appearance of the bones. Spacer device noted between the L3-L4 spinous processes. Multilevel laminectomy changes. Remote compression deformity with kyphoplasty changes at T12 and L1. Unchanged retropulsion at the L1 level. Remote L2, L4 and L5 compression deformities. IMPRESSION: 1. No acute intra-abdominal or intrapelvic abnormality. 2. No bowel obstruction or bowel wall thickening. 3. Prior appendectomy and hysterectomy. 4. Multiple remote compression deformities as above
--- NOTE | 2019-08-05 14:02 | Hospitalist Progress Note ---
Date of Service August 05, 2019 Assessment & Plan (1) Abdominal pain: Presented with severe epigastric pain with nausea and vomiting. No acute findings on CTA of abdomen. WBC's and lactic acid were elevated. GI and General Surgery consulted. GB US negative. CT abdomen and pelvis with oral and IV contrast: FINDINGS: Trace pleural effusions. Mild subsegmental bibasilar atelectasis. There is no pneumatosis or pneumoperitoneum. Imaged inferior cardiac chambers are unremarkable with coronary arterial calcifications. Ill-defined indeterminate area of decreased attenuation of the right hepatic lobe adjacent to the samantha hepatis measures up to 10 mm. There is no intrahepatic biliary ductal dilation. Gallbladder, spleen, pancreas and adrenal glands are unremarkable. 7 mm hypodense lesion of the superior pole left kidney is too small to characterize. No renal or ureteral calculi or obstructive uropathy. Ureters are unremarkable. Mild wall thickening with partial distention of the urinary bladder. Hysterectomy. No adnexal mass lesion. Extensive calcified plaque the abdominal aorta without aneurysm. No adenopathy. No bowel obstruction or bowel wall thickening identified. No ascites or mesenteric inflammation. Appendectomy. Soft tissues are unremarkable. Degenerative changes of the spine, pelvis and hips. Demineralized appearance of the bones. Spacer device noted between the L3-L4 spinous processes. Multilevel laminectomy changes. Remote compression deformity with kyphoplasty changes at T12 and L1. Unchanged retropulsion at the L1 level. Remote L2, L4 and L5 compression deformities. IMPRESSION: 1. No acute intra-abdominal or intrapelvic abnormality. 2. No bowel obstruction or bowel wall thickening. 3. Prior appendectomy and hysterectomy. 4. Multiple remote compression deformities as above. Electronically signed by: Yo Gonzalez M.D. 08/04/2019 10:03 PM Previously noted to have gastritis diagnosed by EGD. Patient had recently stopped taking her ranitidine. Acid suppression with omeprazole 40 mg daily recommended. Taking alendronate for osteoporosis. Advised to discontinue. Avoid NSAID's. Follow-up with GI in 6-8 weeks. (2) Abnormal CT of the abdomen: As noted above, CT of abdomen demonstrated possible small lesions in liver and left kidney. Follow-up imaging by US in 6 months recommended. (3) Microscopic hematuria: UA demonstrated 5-10 RBC's. No evidence of infection. No urinary tract calculi on CT imaging. As noted above, CT demonstrated 7 mm hypodense lesion superior pole left kidney that was too small to characterize. Suggest repeat UA as outpatient with referral to Urology if hematuria persists. Suggest US kidney in 6 months for follow-up. (4) Positive blood culture: One of two blood cultures drawn on 04/02 grew gram positive cocci. Patient received a dose of IV vancomycin pending more data. PCR's for Staph aureus and MRSA negative. Suspect that gram positive cocci will be coag neg Staph from contamination. No further Rx. Patient advised to seek medical attention if she develops fever or other symptoms. (5) Elevated lactic acid level: Serum lactate was 6.2. WBC elevated. Blood cultures were obtained and patient received empiric IV antibiotics. No apparent infection. As discussed above, positive blood culture felt to most likely be due to contamination. No apparent bowel ischemia, etc. No hypotension. Lactate subsequently improved. (6) Hyperglycemia: Random glucose at time of admission 161. No history of DM. Hyperglycemia probably due to physiologic stress. FBS 11/ was 88. FBS 11/3 was 192 after receiving IV steroids. Follow FBS / Hgb A1C as outpatient. (7) Allergic reaction to contrast material: Developed facial swelling after drinking oral CT contrast. Received diphenhydramine and steroids with improvement. (8) Essential hypertension: Continue lisinopril. (9) DVT prophylaxis: SCD's. (10) Discharge planning issues: Anticipated discharge to home. Family Medicine follow-up with Dr. Guzman. Subjective Recheck for abdominal pain, nausea, vomiting. Patient seen in their room around 1340. Apparent allergic reaction due to oral CT contrast last evening. Had swelling of face and eyes. Received diphenhydramine and methylprednisolone with improvement. Feels better today. Minimal nausea early this morning. Tolerated solids for breakfast and lunch. No further loose stools. No melena or hematochezia. Physical Exam Constitutional: no acute distress Respiratory: no respiratory distress Auscultation: lungs clear to auscultation bilaterally Cardiovascular: Rate/Rhythm: regular rate and regular rhythm Heart Sounds: no gallop, no murmur and no cardiac rub Vessels: no JVD Extremities: no calf tenderness and no edema Gastrointestinal (Abdomen): Inspection/Auscultation: normal bowel sounds; abdomen not distended Percussion/Palpation: abdomen soft; abdomen nontender Skin: no rashes, warm and dry Psychiatric: Orientation: alert and oriented x 3 Results & Data Vital Signs (Past 12 Hours) Vital Signs Temp Pulse Pulse Resp BP Pulse Ox 08/05/19 11: 36.5 C 74 16 142/82 H 91 08/05/19 07:32 37.3 C 78 16 151/72 H 95 08/05/19 07:08 74 08/05/19 02:05 72 Laboratory Results Laboratory Results - last 24 hr 08/03/19 08/05/19 08/05/19 06:09 06:45 06:45 WBC 10.46 RBC 4.03 L Hgb 12.5 Hct 37.6 MCV 93.3 MCH 31.0 MCHC 33.2 RDW Std Deviation 45.7 RDW Coeff of Jimi 13.3 Plt Count 245 MPV 8.7 Sodium 139 Potassium 4.1 Chloride 107 Carbon Dioxide 24 Anion Gap 8.0 BUN 8 Creatinine 0.73 Est Cr Clr Drug Dosing 85.7 Est GFR ( Amer) 100.9 Est GFR (Non-Af Amer) 87.0 BUN/Creatinine Ratio 11.6 Glucose 196 H Calcium 8.2 L Total Bilirubin 0.2 Direct Bilirubin < 0.1 AST 17 ALT 20 Alkaline Phosphatase 61 Total Protein 5.9 L Albumin 3.1 L Globulin 2.8 Albumin/Globulin Ratio 1.1 Bld Cult Staph aureus PCR Negative Blood Culture MRSA PCR Negative Microbiology 08/03/19 06:09 Blood Aerobic Blood Culture - Preliminary Gram positive cocci 08/03/19 06:09 Blood Anaerobic Blood Culture - Preliminary No growth in Anaerobic bottle after 48 hours. 08/03/19 04:10 Blood Aerobic Blood Culture - Preliminary No growth in Aerobic bottle after 48 hours. 08/03/19 04:10 Blood Anaerobic Blood Culture - Preliminary No growth in Anaerobic bottle after 48 hours.
--- NOTE | 2019-08-05 15:44 | Pharmacy Report ---
Pharmacy Abx Initial Consult - Date of Service August 05, 2019 - Pharmacy Dosing Scope Date of Consult: 08/05/19 Consultation requested by: Dr. Palmer Pharmacy is consulted to initiate Vancomycin IV dosing therapy, order appropriate labs and adjust drug dose/frequency. - Subjective The patient is a 63 year old F admitted on 08/03/19 06:49. - Objective Height: 5 ft 3 in Weight: 95.7 kg (BMI 37.4) Vital Signs (Past 12hrs): Vital Signs Temp Pulse Pulse Resp BP BP Pulse Ox 08/05/19 15:10 37.0 C 77 16 167/92 H 95 08/05/19 14:47 89 08/05/19 11: 36.5 C 74 16 142/82 H 91 08/05/19 07:32 37.3 C 78 16 151/72 H 95 08/05/19 07:08 74 Lab Results (24hrs): Laboratory Tests (24 Hours) 08/05/19 08/05/19 06:45 06:45 WBC 10.46 Creatinine 0.73 Est Cr Clr Drug Dosing 85.7 - Risk Factors for Resistance * Antimicrobial use within the last 90 days Keflex - Assessment & Plan Assessment 63 year old F admitted with nausea/vomiting/abdominal pain and started on both Cipro and Flagyl. Started on Vancomycin due to + blood cultures showing Gram + cocci. Plan Vancomycin for treatment of bacteremia Vancomycin IV * Estimated PK Parameters: Vd 0.56 L/kg, Cristhian 0.076 hr-1, t1/2 9.1 hr * Loading dose: 2250 mg (23.5 mg/kg) * Maintenance dose: 1500 mg IV (15.6 mg/kg) every 12 hours * Goal trough level for bacteremia : 15 to 20 mcg/mL * Trough level ordered for 08/06/19 @2030 * A less than traditional dose and/or extended dosing interval has/have been selected due to likelihood of drug accumulation in obese patient/patient with h/o CKD. Due to potential of accumulation will extend the dosing interval slightly. Pharmacy will continue to follow and will adjust dose/frequency as necessary. Thank you.
--- NOTE | 2019-08-05 15:58 | Discharge Summary ---
Date of Service Date of Admission: 08/03/19 Date of Discharge: 08/05/19 Admission HPI Per Admitting Provider his is a 63-year-old female with past medical history significant for hyperlipidemia, hypertension, history of neck surgeries and back surgeries, depression, tobacco disorder, who presents with nausea and vomiting since yesterday morning. The patient had similar episodes in March when she was in the hospital with significant nausea, vomiting. At that time, CAT scan showed no acute findings. She was status post EGD which showed diffuse gastritis and she was discharged on 8 weeks of Protonix daily, but the patient says the Protonix caused her ankle swelling and she was put on Zantac and recently because of that Zantac has been recalled , her PCP put on generic ranitidine 150 b.i.d., but about 1 week ago, she stopped taking it because of the drug been called off.She also had a colonoscopy in June which just showed 1 polyp s/p resection and biopsy showed tubular adenoma.She was doing okay until yesterday morning when she started to have severe nausea and vomiting which caused her abdominal pain, severe in nature. She had 1 episode of diarrhea in the yesterday morning since then she did not move her bowels. Had several episodes of nausea and vomiting, but no blood in the vomitus.Denies any black stools or blood in the stools, no hematuria, no burning micturition. She could not eat anything since yesterday and she could not keep her pills down, so she came to the ER. Currently in the ER, she received morphine, Pepcid, Compazine, Benadryl and Zofran and she is feeling better. Her abdominal pain is almost gone. Nausea is improved. She denies any fever or chills. She has chronic cough from her smoking and brings once in a while yellowish phlegm. Denies any chest pain, no shortness of breath, no headache, no blurred vision, no earache, no runny nose, no sore throat. Her appetite is okay otherwise. She ambulates sometimes with cane. She lives with her brother and nephew. No swelling in the legs. She has some dry skin in the lower extremities. Small scar from a dog bite in the left lower extremity. Otherwise, she was doing fine until this episode. In the ER, her white count was high at 21,000 and lactic acid came back as 6.2 and repeat after 2 hours later, it was 4.1. She received Cipro and Flagyl in the ER. Lipase is normal at 74. CTA of the abdomen and pelvis was done which was unremarkable. Awaiting for official report, because of the lab abnormalities were called for admission. Currently, patient is resting comfortably and hemodynamically stable. Principal Diagnosis abdominal pain, nausea, vomiting OTHER ACUTE / NEW DIAGNOSES: positive blood culture (gram positive cocci, not Staph aureus, not MRSA, final report pending) microscopic hematuria 7 mm hypodense lesion left kidney possible small hepatic lesion hyperglycemia apparent allergic reaction to oral CT contrast Discharge Data Allergies Allergy/AdvReac Type Severity Reaction Status Date / Time Penicillins Allergy Unknown SWELLING Verified 08/03/19 03:[address] contrast Allergy Intermediate Uncoded 08/05/19 15:51 Consultations 08/03/19 08:25 Consult Gastroenterology Routine 08/04/19 11:14 Consult General Surgery Routine Ordered Studies 08/03/19 04:56 CT angio abdomen pelvis w con Urgent 08/04/19 11:14 US gallbladder Urgent 08/04/19 18:37 CT abd pelvis oral and IV con Urgent Hospital Course (1) Abdominal pain: Presented with severe epigastric pain with nausea and vomiting. WBC's and lactic acid were elevated. No acute findings on CTA of abdomen. GI and General Surgery consulted. GB US negative. CT abdomen and pelvis with oral and IV contrast: FINDINGS: Trace pleural effusions. Mild subsegmental bibasilar atelectasis. There is no pneumatosis or pneumoperitoneum. Imaged inferior cardiac chambers are unremarkable with coronary arterial calcifications. Ill-defined indeterminate area of decreased attenuation of the right hepatic lobe adjacent to the samantha hepatis measures up to 10 mm. There is no intrahepatic biliary ductal dilation. Gallbladder, spleen, pancreas and adrenal glands are unremarkable. 7 mm hypodense lesion of the superior pole left kidney is too small to characterize. No renal or ureteral calculi or obstructive uropathy. Ureters are unremarkable. Mild wall thickening with partial distention of the urinary bladder. Hysterectomy. No adnexal mass lesion. Extensive calcified plaque the abdominal aorta without aneurysm. No adenopathy. No bowel obstruction or bowel wall thickening identified. No ascites or mesenteric inflammation. Appendectomy. Soft tissues are unremarkable. Degenerative changes of the spine, pelvis and hips. Demineralized appearance of the bones. Spacer device noted between the L3-L4 spinous processes. Multilevel laminectomy changes. Remote compression deformity with kyphoplasty changes at T12 and L1. Unchanged retropulsion at the L1 level. Remote L2, L4 and L5 compression deformities. IMPRESSION: 1. No acute intra-abdominal or intrapelvic abnormality. 2. No bowel obstruction or bowel wall thickening. 3. Prior appendectomy and hysterectomy. 4. Multiple remote compression deformities as above. Electronically signed by: Yo Gonzalez M.D. 08/04/2019 10:03 PM Previously noted to have gastritis diagnosed by EGD. Patient had recently stopped taking her ranitidine. Acid suppression with omeprazole 40 mg daily recommended. Taking alendronate for osteoporosis. Advised to discontinue. Avoid NSAID's. Follow-up with GI in 6-8 weeks. (2) Abnormal CT of the abdomen: As noted above, CT of abdomen demonstrated possible small lesions in liver and left kidney. Follow-up imaging by US in 6 months recommended. (3) Microscopic hematuria: UA demonstrated 5-10 RBC's. No evidence of infection. No urinary tract calculi on CT imaging. As noted above, CT demonstrated 7 mm hypodense lesion superior pole left kidney that was too small to characterize. Suggest repeat UA as outpatient with referral to Urology if hematuria persists. Suggest US kidney in 6 months for follow-up. (4) Positive blood culture: One of two blood cultures drawn on 04/02 grew gram positive cocci. Patient received a dose of IV vancomycin pending more data. PCR's for Staph aureus and MRSA negative. Suspect that gram positive cocci will be coag neg Staph from contamination. No further Rx. Patient advised to seek medical attention if she develops fever or other sy mptoms. (5) Elevated lactic acid level: Serum lactate was 6.2. WBC elevated. Blood cultures were obtained and patient received empiric IV antibiotics. No apparent infection. As discussed above, positive blood culture felt to most likely be due to contamination. No apparent bowel ischemia, etc. No hypotension. Lactate subsequently improved. (6) Hyperglycemia: Random glucose at time of admission 161. No history of DM. Hyperglycemia probably due to physiologic stress. FBS 11/2 was 88. FBS 11/3 was 192 after receiving IV steroids. Follow FBS / Hgb A1C as outpatient. (7) Allergic reaction to contrast material: Developed facial swelling after drinking oral CT contrast. Apparent allergic reaction. Received diphenhydramine and steroids with improvement. (8) Essential hypertension: Continue lisinopril. (9) DVT prophylaxis: SCD's. (10) Discharge planning issues: Discharged to home. Family Medicine follow-up with Dr. Guzman. Follow-up with [facility] in 6-8 weeks. Total Time Total Time Spent Total Time Spent (In Minutes): 45 Discharge Plan Discharge Items Patient Disposition: Home - Self-Care Reason For Visit: abdominal pain, nausea, vomiting Discharge Diagnosis: abdominal pain, nausea, vomiting Condition on Discharge: Good Activity: Resume your previous activity Non-emergency contact: Primary Care Provider Call non-emergency contact if: you have any medication questions, your symptoms worsen and your temperature is above 101 Follow-up/Referrals: Zion Guzman MD [Primary Care Provider] - (Office will contact you with appointment.) Diet: Heart Healthy Addtl Attending Provider Instructions: MEDICATION CHANGES: Stop alendronate (Fosamax). It can upset stomach and esophagus. Please talk to Dr. Guzman about alternatives. Start omeprazole (Prilosec) 40 mg daily. Helps control stomach acid. SUMMARY OF TEST RESULTS: CT scans did not show anything to explain your abdominal pain. There were possible small spots in your liver and left kidney on the CT scan. They are probably nothing serious. Recommend and ultrasound of your liver and kidneys in 6 months to recheck. Please ask Dr. Guzman to schedule it for you. One of the blood cultures done on August 03 grew some bacteria. Based on the preliminary results, the bacteria were probably from skin and were not making you sick. Urine sample showed a few red blood cells, but no sign of kidney stones or urine infection. Please have Dr. Guzman recheck urine sample. Your blood sugars were high at times, probably because you were sick and also because you received a steroid medicine. Please have Dr. Guzman check fasting blood sugar every so often. PENDING TEST RESULTS: Final blood culture result. RECOMMENDATIONS FOR FOLLOW-UP: Please ask Dr. Guzman to make referral for follow-up with Gastroenterology in 6-8 weeks. OTHER INSTRUCTIONS: Do not use any anti-inflammatory pain medicines like ibuprofen (Advil or Motr in), naproxen (Aleve), and related medicines. They can cause ulcers and other stomach problems. Seek medical attention if you have: * temperature above 101 * chest pain or trouble breathing * abdominal pain, nausea, vomiting * diarrhea, dark stools or bloody stools * any unanswered questions or concerns Call 911 if symptoms are severe. Please take good care of yourself. Call if you have any questions or problems. You can reach a [facility] hospitalist on duty at [facility] 24 hours a day by calling [phone]. My cell # is [phone]. Pending Studies at Discharge: Yes (final blood culture report) Stand-Alone Forms: My [facility], Smoking Cessation Medications and DC Order Prescriptions: New omeprazole 40 mg capsule,delayed release(DR/EC) 40 mg PO DAILY Qty: 30 RF: 5 Continued aspirin [Aspirin Low Dose] 81 mg Tablet,Delayed Release (Dr/Ec) 81 mg PO QAM RF: 0 baclofen 10 mg Tablet 10 mg PO TID PRN (Reason: Muscle Spasm/Pain) RF: 0 buspirone 15 mg Tablet 15 mg PO TID RF: 0 cholecalciferol (vitamin D3) 2,000 unit Tablet 2,000 units PO QAM RF: 0 trazodone 50 mg Tablet 100 mg PO HS RF: 0 venlafaxine 225 mg Tablet Extended Release 24hr 225 mg PO QAM RF: 0 atorvastatin 20 mg tablet 20 mg PO QAM RF: 0 lisinopril 40 mg tablet 40 mg PO QAM RF: 0 ondansetron 4 mg tablet,disintegrating 4 mg PO Q8H PRN (Reason: Nausea) RF: 0 fluticasone propionate [Flonase Allergy Relief] 50 mcg/actuation [place],Suspension 2 spray INTRANASAL DAILY PRN (Reason: Congestion) RF: 0 loratadine 10 mg Tablet 10 mg PO DAILY PRN (Reason: congestion) RF: 0 oxycodone [OxyContin] 10 mg Tablet,Oral Only,Ext.Rel.12 Hr 10 mg PO Q12H RF: 0 hydrocodone-acetaminophen 5 mg 5 mg PO BID PRN (Reason: Pain) RF: 0 hydroxyzine HCl 10 mg 10 mg PO HS PRN (Reason: Anxiety) RF: 0 Discontinued alendronate 70 mg tablet 70 mg PO WK RF: 0 Discharge Orders: Discharge Order (Routine); Ordered 08/05/19 Ordered By: Zion Palmer Admission Data Admit Date/Time: 08/03/19 06:49 Attending Provider: Zion Palmer Admit Provider: Sam Pierson Primary Care Provider: Zion Guzman Other Providers: Melissa Allen ; Sid Bob ; Lashawn Cruz ; Armond Peguero ; Ray Chen ; Latanya Solomon ; Dhara Garibay ; Alejandro Durbin ; Kale Sinha ; Felicity Myrick ; Gabbi Dallas ; Bee Leonardo ; Violeta Mccullough ; Lynsey Welch ; Joey Zapata Other Interventions: Discharge Summary Assessment (RN) Last Done: 08/05/19 16:03 DC Date/Time DO NOT enter until pt leaves facility: 08/05/19 16:24
[2019-08-05] MEDS ORDERED: VANCOMYCIN HCL 1,500 MG in SODIUM CHLORIDE 0.9% 500 ML IV SCH (21:00)
[2019-08-06] MEDS ORDERED: VANCOMYCIN TROUGH ONE (20:30)
== END 2019-08-05 16:24 | disposition home or self-care (01) | DRG 392 ==
LOC: ED 03:28 → 2N 06:49

== ENCOUNTER 2019-09-03 13:48 | Inpatient (IN) ==
[2019-09-03] MEDS ORDERED: ONDANSETRON INJ 2 MG/ML 2 ML VIAL IV STA (14:09)
[2019-09-03] MEDS ORDERED: DiphenhydrAMINE HCL 50 MG/ML VIAL IV STA (14:09)
[2019-09-03] MEDS ORDERED: SODIUM CHLORIDE 0.9% 1000ML 1,000 ML IV SCH (14:15)
--- NOTE | 2019-09-03 14:28 | XRay Report ---
XR chest 1V portable CLINICAL HISTORY: Vomiting COMPARISON STUDY: 08/03/2019 FINDINGS: The cardiac and mediastinal contours are normal. There is no evidence of focal pulmonary co nsolidation. There is no evidence of failure. No pleural effusions are visualized.[Postsurgical bell es are present within the cervical spine and midthoracic spine. There is no free intraperitoneal air. IMPRESSION: No active disease in the chest. Electronically signed by: Navin Puentes M.D. 09/03/2019 2:27 PM
[2019-09-03] MEDS: fentaNYL citrate 100 MCG/2 ML VIAL IV PRN ×4 (14:38→17:53)
[2019-09-03 15:07] LABS: Basophils # (auto) 0.03 K/uL (0-0.2); Basophils % (auto) 0.2 %; Eosinophils # (auto) 0.12 K/uL (0-0.5); Eosinophils % (auto) 0.8 %; Hematocrit (blood only) 42.2 % (37-47); Hemoglobin 14.2 g/dL (12.0-16.0); Immature Granulocytes # (auto) 0.07 K/uL (0.00-0.02); Immature Granulocytes % (auto) 0.4 %; Lymphocytes # (auto) 1.77 K/uL (1.2-3.4); Lymphocytes % (auto) 11.2 %; Mean Corpuscular Hemoglobin 30.5 pg (25-34); Mean Corpuscular Hgb Conc 33.6 g/dL (32-36); Mean Corpuscular Volume 90.6 fL (80-100); Mean Platelet Volume 8.9 fL (7.4-10.4); Monocytes # (auto) 0.46 K/uL (0.11-0.59); Monocytes % (auto) 2.9 %; Neutrophils # (auto) 13.42 K/uL (1.4-6.5); Neutrophils % (auto) 84.5 %; Platelet Count 312 K/uL (130-400); RDW Coefficient of Variation 13.4 % (11.5-14.5); RDW Standard Deviation 44.4 fL (36.4-46.3); Red Blood Count 4.66 M/uL (4.2-5.4); White Blood Count 15.87 K/uL (4.8-10.8)
[2019-09-03] MEDS ORDERED: PROMETHAZINE 6.25 MG/50.25 ML BAG IV STA (15:07)
[2019-09-03 15:25] LABS: Partial Thromboplastin Ratio 0.8; Partial Thromboplastin Time 20.9 Seconds (21.0-31.0); Prothrombin Time 9.8 Seconds (9.0-12.0)
[2019-09-03 15:30] LABS: Alanine Aminotransferase 26 U/L (12-78); Albumin Level 4.2 gm/dl (3.4-5.0); Aspartate Aminotransferase 14 U/L (15-37); BUN Creatinine Ratio 23.5 (10-20); Blood Urea Nitrogen 18 mg/dl (7-18); Calcium 9.5 mg/dl (8.5-10.1); Carbon Dioxide 24 mmol/L (21-32); Chloride 105 mmol/L (98-107); Est GFR (African American) 97.6; Est GFR (Non-African American) 84.2; Glucose 142 mg/dl (70-99); Lipase 123 U/L (73-393); Potassium 4.3 mmol/L (3.5-5.1); Sodium 137 mmol/L (136-145)
[2019-09-03 15:33] LABS: Albumin Globulin Ratio 1.1 (0.9-2); Alkaline Phosphatase 83 U/L (45-117); Bilirubin,Total 0.4 mg/dl (0.2-1); C Reactive Protein < 0.29 mg/dl (0-0.29); Globulin 3.7 gm/dl (2.5-4.0); Total Protein 7.9 gm/dl (6.4-8.2)
--- NOTE | 2019-09-03 16:30 | XRay Report ---
XR KUB/Abdomen 1 view CLINICAL HISTORY: vomiting COMPARISON STUDY: 03/08/2019 FINDINGS: Postsurgical changes are present within the lumbar spine and lower thoracic spine. There is no pathologic bowel dilatation. There are no calcifications suspicious for renal calculi. IMPRESSION: Nonobstructive bowel gas pattern. Electronically signed by: Navin Puentes M.D. 09/03/2019 4:29 PM
[2019-09-03 17:17] LABS: Appearance Urine Clear (Clear); Bacteria Urine Automated Negative (Negative); Bilirubin Urine Negative (Negative); Blood Urine Trace (Negative); Color Urine Yellow; Glucose Urine UA Negative (Negative); Ketones Urine 1+ (Negative); Leukocyte Esterase Urine 1+ (Negative); Nitrite Urine Negative (Negative); Protein Urine Trace (Negative); Specific Gravity Urine 1.026 (1.000-1.030); Urobilinogen Urine Negative (Negative)
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
[2019-09-03] MEDS ORDERED: cefTRIAXone SODIUM 1,000 MG/50 ML BAG IV STA (17:19)
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
[2019-09-03] MEDS ORDERED: LORazepam 2 MG/4 ML VIAL ONE (19:09)
[2019-09-03] MEDS ORDERED: LORazepam 0.5 MG/1 ML VIAL IV STA (19:17)
[2019-09-03] MEDS ORDERED: FLUTICASONE PROPIONATE NA SPR 16 GM BTL PRN (19:34)
[2019-09-03] MEDS ORDERED: HYDROCODONE/ACETAMOPHEN 5/325MG TAB PO PRN (19:34)
[2019-09-03] MEDS ORDERED: LORATADINE 10 MG TAB PO PRN (19:34)
[2019-09-03] MEDS ORDERED: ONDANSETRON 4 MG OD TAB PO PRN (19:34)
[2019-09-03] MEDS: HYDROmorphone INJ 1 MG/ML SYRINGE IV PRN (20:18)
[2019-09-03] MEDS: ONDANSETRON INJ 2 MG/ML 2 ML VIAL IV PRN (20:19)
[2019-09-03] MEDS: TRAZODONE HCL 100 MG TAB PO SCH (20:55)
[2019-09-03] MEDS: BusPIRone 15 MG TAB PO SCH (20:56)
[2019-09-03] MEDS: ENOXAPARIN INJ 40 MG/0.4 ML SYR SQ SCH (20:56)
[2019-09-03] MEDS ORDERED: hydrOXYzine HCl 10 MG TAB PO SCH (21:00)
[2019-09-03] MEDS ORDERED: OXYCODONE HCL 10 MG TABCR (OXYCONTIN) PO SCH (21:00)
[2019-09-03] MEDS: BACLOFEN 10 MG TAB PO PRN (22:11)
[2019-09-03] MEDS ORDERED: FAMOTIDINE 20 MG in SYRINGE 3 ML IV ONE (22:30)
[2019-09-03] MEDS: D5W AND LACTATED RINGERS 1,000 ML IV SCH (22:33)
[2019-09-04] MEDS: HYDROmorphone INJ 1 MG/ML SYRINGE IV PRN ×5 (00:19→22:14)
[2019-09-04] MEDS: ONDANSETRON INJ 2 MG/ML 2 ML VIAL IV PRN ×2 (03:29→18:55)
[2019-09-04] MEDS: D5W AND LACTATED RINGERS 1,000 ML IV SCH ×3 (06:09→22:14)
[2019-09-04 08:03] LABS: Alanine Aminotransferase 22 U/L (12-78); Albumin Level 3.2 gm/dl (3.4-5.0); Aspartate Aminotransferase 12 U/L (15-37); BUN Creatinine Ratio 17.4 (10-20); Blood Urea Nitrogen 11 mg/dl (7-18); Calcium 8.6 mg/dl (8.5-10.1); Carbon Dioxide 25 mmol/L (21-32); Chloride 106 mmol/L (98-107); Creatinine Clr Calc Pharmacy 94.8 ml/min; Est GFR (African American) 110.4; Est GFR (Non-African American) 95.3; Glucose 110 mg/dl (70-99); Lipase 70 U/L (73-393); Potassium 3.2 mmol/L (3.5-5.1); Sodium 138 mmol/L (136-145)
[2019-09-04 08:05] LABS: Albumin Globulin Ratio 0.9 (0.9-2); Alkaline Phosphatase 68 U/L (45-117); Bilirubin Direct < 0.1 mg/dl (0-0.2); Bilirubin,Total 0.3 mg/dl (0.2-1); Globulin 3.5 gm/dl (2.5-4.0); Total Protein 6.7 gm/dl (6.4-8.2)
[2019-09-04] MEDS ORDERED: DICYCLOMINE HCL 10 MG CAP PO PRN (08:49)
[2019-09-04] MEDS: HYDROCODONE/ACETAMOPHEN 5/325MG TAB PO PRN ×2 (08:51→17:13)
[2019-09-04] MEDS: CHOLECALCIFEROL 1,000 UNITS TAB PO SCH (08:52)
[2019-09-04] MEDS: ASPIRIN 81 MG ECTAB PO SCH (08:53)
[2019-09-04] MEDS: VENLAFAXINE HCL XR 75 MG CAPXR PO SCH (08:53)
[2019-09-04] MEDS: PANTOprazole 40 MG TAB PO SCH (08:53)
[2019-09-04] MEDS: ATORVASTATIN 20 MG TAB PO SCH (08:53)
[2019-09-04] MEDS: lisinopriL 40 MG TAB PO SCH (08:54)
[2019-09-04] MEDS: BusPIRone 15 MG TAB PO SCH ×3 (08:54→21:00)
[2019-09-04] MEDS: NICOTINE 7 MG/24 HR TDSY TD SCH (08:55)
[2019-09-04] MEDS: FAMOTIDINE 20 MG in SYRINGE 3 ML IV SCH ×2 (09:14→21:01)
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
[2019-09-04] MEDS: BACLOFEN 10 MG TAB PO PRN (10:50)
--- NOTE | 2019-09-04 12:50 | Hospitalist Progress Note ---
Date of Service September 04, 2019 Assessment & Plan (1) Abdominal pain: (2) Intractable nausea and vomiting: Has chronic nausea for least several months with recurrent abdominal pain and vomiting. Has had multiple evaluation since October of this year including multiple CTs of the abdomen and pelvis, 2 CT angiograms of abdomen and pelvis, gallbladder ultrasound, and EGD. Mild gastritis was noted on EGD in March. Pathology demonstrated mild chronic inflammation, no dysplasia or malignancy, no Helicobacter pylori. 4 CT scans of abdomen pelvis since October did not show any acute intra- abdominal findings; there was a question of possible pyelonephritis in March (urine culture at that time grew more than 3 organisms felt to be skin michael). CT angiograms of abdomen in March and August demonstrated atherosclerosis of aorta without significant stenosis of celiac artery, SMA, HARLEY. Ultrasound in August did not show any evidence of cholelithiasis, choledocholithiasis, or cholecystitis. WBC now 15,000 on admission. Symptoms improving Continue anti-emetics. Continue PPI. Will advance diet as tolerated GI recommendations noted (3) Abnormal urinalysis: UA shows 1+ leukocyte esterase, 10-30 WBC's, 10-30 RBC's, 5-10 epithelial cells. No fever or dysuria Had microscopic hematuria during last admission about [address] of abdomen / pelvis at that time showed 7 mm lesion superior pole left kidney, too small to characterize; no urinary tract calculi were seen. Urine culture no growth today Received a dose of ceftriaxone in ED Holding any more antibiotics (4) Essential hypertension: Monitor BP Continue lisinopril. (5) Chronic pain syndrome: History of chronic neck and back pain. Current analgesic regimen is oxycodone SR 10 mg BID + hydrocodone/acetaminophen 5/325 BID PRN. I explained to the patient this may be contributing to her GI symptoms She states that she has been having chronic back pain since after multiple back and neck surgeries and that even the pain med regimen only makes her pain bearable Currently has dilaudid iv prn and hydrocodone/acetaminophen prn Oxycontin on hold from admission. No withdrawal signs. If pain still poorly controlled will resume home dose (6) Anxiety: (7) Depression: Currently anxious and reports depression Denied suicidal ideation History of anxiety and depression- contributing factors include chronic pain and medical problems Current meds include buspirone, trazodone, venlafaxine. Seems like current regimen is not working well and it is possible that chronic nausea may be related to meds. Appreciate psych recommendations. (8) Tobacco user: Smoking cessation counseling. Nicotine patch. (9) DVT prophylaxis: SQ enoxaparin. Ambulate. (10) Discharge planning issues: Anticipated discharge to home. Family Medicine follow-up with Dr. Guzman. Subjective Patient still reports nausea. No vomiting this morning. Reports abdominal pain is still present but improved compared to yesterday No diarrhea today Reports chronic back pain Also reports chronic upper extremity numbness (intermittent, not present now) and chronic lower extremity paraesthesiae (burning sensation) Denied fever, chest pain, cough, shortness of breath. Denied dysuria, frequency, urgency, incontinence Review of Systems Review of Systems: All systems reviewed and unremarkable except for mentioned above. Physical Exam Physical Exam: General: Well nourished, well hydrated, no acute distress, crying Eyes: PERRL, conjunctivae normal, EOM intact bilaterally ENMT: External ear and nose normal, oropharynx normal Neck: Normal visual inspection, no tracheal deviation, no swelling noted Respiratory: Normal respiratory effort, no respiratory distress, lungs clear to auscultation, no crackles and no wheezes Cardiovascular: Pulse is RRR. S1 S2 no murmur Chest (Breasts): Chest: normal inspection of chest Gastrointestinal (Abdomen): Abdomen is not distended, soft, non-tender to palpation, no guarding, no palpable hepatosplenomegaly, normal bowel sounds Musculoskeletal: No cyanosis or clubbing, all extremities motor strength 5/5 Genitourinary: No CVA tenderness Skin: No rash noted on gross inspection, No ulcers noted Neurologic: Alert and oriented x 3, No focal weakness, sensation grossly intact Psychiatric: Alert and oriented x 3, anxious, crying Results & Data Vital Signs (Past 12 Hours) Vital Signs Temp Pulse Resp BP Pulse Ox 09/04/19 11:48 64 16 143/87 H 09/04/19 07:28 36.5 C 75 18 160/76 H 95 Laboratory Results Laboratory Results - last 24 hr 09/03/19 09/03/19 09/03/19 14:54 14:54 14:54 WBC 15.87 H RBC 4.66 Hgb 14.2 Hct 42.2 MCV 90.6 MCH 30.5 MCHC 33.6 RDW Std Deviation 44.4 RDW Coeff of Jimi 13.4 Plt Count 312 MPV 8.9 Immature Gran % (Auto) 0.4 Neut % (Auto) 84.5 Lymph % (Auto) 11.2 Grady % (Auto) 2.9 Eos % (Auto) 0.8 Baso % (Auto) 0.2 Immature Gran # (Auto) 0.07 H Neut # (Auto) 13.42 H Lymph # (Auto) 1.77 Grady # (Auto) 0.46 Eos # (Auto) 0.12 Baso # (Auto) 0.03 ESR PT 9.8 INR 1.0 APTT 20.9 L PTT Ratio 0.8 Sodium 137 Potassium 4.3 Chloride 105 Carbon Dioxide 24 Anion Gap 8.0 BUN 18 Creatinine 0.75 Est Cr Clr Drug Dosing 76.0 Est GFR ( Amer) 97.6 Est GFR (Non-Af Amer) 84.2 BUN/Creatinine Ratio 23.5 H Glucose 142 H Calcium 9.5 Total Bilirubin 0.4 Direct Bilirubin AST 14 L ALT 26 Alkaline Phosphatase 83 C-Reactive Protein < 0.29 Total Protein 7.9 Albumin 4.2 Globulin 3.7 Albumin/Globulin Ratio 1.1 Lipase 123 Urine Color Urine Appearance Urine pH Ur Specific [place] Urine Protein Urine Glucose (UA) Urine Ketones Urine Blood Urine Nitrite Urine Bilirubin Urine Urobilinogen Ur Leukocyte Esterase Urine WBC (Auto) Urine RBC (Auto) U Hyaline Cast (Auto) U Epithel Cells (Auto) Urine Bacteria (Auto) 09/03/19 09/03/19 09/04/19 14:54 16:55 07:01 WBC RBC Hgb Hct MCV MCH MCHC RDW Std Deviation RDW Coeff of Jimi Plt Count MPV Immature Gran % (Auto) Neut % (Auto) Lymph % (Auto) Grady % (Auto) Eos % (Auto) Baso % (Auto) Immature Gran # (Auto) Neut # (Auto) Lymph # (Auto) Grady # (Auto) Eos # (Auto) Baso # (Auto) ESR 16 PT INR APTT PTT Ratio Sodium 138 Potassium 3.2 L D Chloride 106 Carbon Dioxide 25 Anion Gap 7.0 BUN 11 Creatinine 0.62 Est Cr Clr Drug Dosing 94.8 Est GFR ( Amer) 110.4 Est GFR (Non-Af Amer) 95.3 BUN/Creatinine Ratio 17.4 Glucose 110 H Calcium 8.6 Total Bilirubin 0.3 Direct Bilirubin < 0.1 AST 12 L ALT 22 Alkaline Phosphatase 68 C-Reactive Protein Total Protein 6.7 Albumin 3.2 L Globulin 3.5 Albumin/Globulin Ratio 0.9 Lipase 70 L Urine Color Yellow Urine Appearance Clear Urine pH 6.0 Ur Specific [place] 1.026 Urine Protein Trace H Urine Glucose (UA) Negative Urine Ketones 1+ H Urine Blood Trace H Urine Nitrite Negative Urine Bilirubin Negative Urine Urobilinogen Negative Ur Leukocyte Esterase 1+ H Urine WBC (Auto) 10-30 H Urine RBC (Auto) 10-30 H U Hyaline Cast (Auto) 1-5 U Epithel Cells (Auto) 5-10 H Urine Bacteria (Auto) Negative (1) Abdominal pain Abdominal location: unspecified location Qualified Code(s): R10.9 - Unspecified abdominal pain
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
[2019-09-04] MEDS: TRAZODONE HCL 100 MG TAB PO SCH (21:00)
[2019-09-04] MEDS: ENOXAPARIN INJ 40 MG/0.4 ML SYR SQ SCH (21:01)
[2019-09-05] MEDS: BACLOFEN 10 MG TAB PO PRN ×2 (00:59→08:52)
[2019-09-05] MEDS: HYDROmorphone INJ 1 MG/ML SYRINGE IV PRN ×3 (03:09→16:00)
[2019-09-05] MEDS: D5W AND LACTATED RINGERS 1,000 ML IV SCH ×2 (06:29→15:08)
[2019-09-05] MEDS: ONDANSETRON INJ 2 MG/ML 2 ML VIAL IV PRN (06:32)
[2019-09-05 06:50] LABS: Hemoglobin 12.7 g/dL (12.0-16.0); Mean Corpuscular Hemoglobin 30.8 pg (25-34); Mean Corpuscular Hgb Conc 32.6 g/dL (32-36); Mean Corpuscular Volume 94.7 fL (80-100); Mean Platelet Volume 8.5 fL (7.4-10.4); Platelet Count 254 K/uL (130-400); RDW Coefficient of Variation 13.5 % (11.5-14.5); Red Blood Count 4.12 M/uL (4.2-5.4); White Blood Count 9.25 K/uL (4.8-10.8)
[2019-09-05 07:29] LABS: BUN Creatinine Ratio 14.7 (10-20); Calcium 8.5 mg/dl (8.5-10.1); Creatinine Clr Calc Pharmacy 85.1 ml/min; Est GFR (African American) 106.6; Potassium 3.7 mmol/L (3.5-5.1)
[2019-09-05] MEDS: ASPIRIN 81 MG ECTAB PO SCH (07:50)
[2019-09-05] MEDS: BusPIRone 15 MG TAB PO SCH ×2 (07:51→14:11)
[2019-09-05] MEDS: NICOTINE 7 MG/24 HR TDSY TD SCH (07:51)
[2019-09-05] MEDS: VENLAFAXINE HCL XR 75 MG CAPXR PO SCH (07:52)
[2019-09-05] MEDS: PANTOprazole 40 MG TAB PO SCH (07:52)
[2019-09-05] MEDS: CHOLECALCIFEROL 1,000 UNITS TAB PO SCH (07:52)
[2019-09-05] MEDS: ATORVASTATIN 20 MG TAB PO SCH (07:52)
[2019-09-05] MEDS: lisinopriL 40 MG TAB PO SCH (07:53)
[2019-09-05] MEDS: FAMOTIDINE 20 MG in SYRINGE 3 ML IV SCH (08:51)
[2019-09-05] MEDS: HYDROCODONE/ACETAMOPHEN 5/325MG TAB PO PRN (09:22)
--- NOTE | 2019-09-05 16:04 | Hospitalist Progress Note ---
Date of Service September 05, 2019 Assessment & Plan (1) Abdominal pain: As noted above. (2) Intractable nausea and vomiting: H/O Chronic nausea for least several months with recurrent abdominal pain and vomiting. Had Extensive work up in the past-- Multiple CTs, CTA, gallbladder ultrasound, EGD. KUB:Nonobstructive bowel gas pattern. Possible gastroparesis from narcotics Further GI work-up as outpatient--HIDA scan, gastric emptying study Continue omeprazole 40 mg daily Appreciate GI input Avoid narcotics as able Follows with pain management as outpatient (3) Abnormal urinalysis: Microscopic hematuria Left kidney lesion CT of abdomen / pelvis at that time showed 7 mm lesion superior pole left kidney, too small to characterize; no urinary tract calculi were seen. Urine culture: No growth Advised to follow-up with urology as outpatient (4) Essential hypertension: Monitor BP Continue lisinopril. (5) Chronic pain syndrome: H/O Chronic neck and back pain. Current analgesic regimen is oxycodone SR 10 mg BID + hydrocodone/acetaminophen 5/325 BID PRN. Patient currently reluctant to change her home analgesic regimen Advised to minimize secondary to GI symptoms Advised to follow-up with pain management as outpatient (6) Anxiety: As noted above. (7) Depression: Anxiety/Depression Continue home medications--buspirone, trazodone, venlafaxine. Appreciate psychiatry input Currently patient is not interested in any change of medications (8) Tobacco user: Smoking cessation counseling. Nicotine patch. (9) DVT prophylaxis: Lovenox SQ (10) Discharge planning issues: Plan to discharge home today Subjective Patient is seen and examined at bedside Complains of chronic low back pain Denies any vomiting, abdominal pain today Tolerating diet Denies any chest pain, shortness of breath, dizziness Offers no other complaints Urine culture negative for any infection Review of Systems Review of Systems: All systems reviewed & are unremarkable except as noted in HPI & below Physical Exam Physical Exam: Physical Exam: Vitals signs as noted above General Appearance:Moderately built and nourished, no apparent distress Head: normocephalic, Atraumatic Eyes: normal inspection, EOMI Neck: supple, Trachea midline Respiratory/Chest: Normal breath sounds, CTA Cardiovascular: S1, S2, No murmur Abdomen/GI:Soft, Non tender, Bowel sounds present Extremities/Musculoskelatal:normal inspection, no edema Neurologic/Psych:AAOX3, grossly no focal neurological deficits Skin: normal color, warm Results & Data Vital Signs (Past 12 Hours) Vital Signs Temp Pulse Resp BP Pulse Ox 09/05/19 15:16 36.7 C 75 20 114/69 94 09/05/19 07:18 36.7 C 72 16 125/72 92 Laboratory Results Short CBC 09/05/19 Range/Units 06:25 WBC 9.25 (4.8-10.8) K/uL Hgb 12.7 (12.0-16.0) g/dL Hct 39.0 (37-47) % Plt Count 254 (130-400) K/uL BMP 09/05/19 06:25 Sodium 140 Potassium 3.7 D Chloride 107 Carbon Dioxide 27 BUN 10 Creatinine 0.69 Glucose 110 H Calcium 8.5 (1) Abdominal pain Abdominal location: unspecified location Qualified Code(s): R10.9 - Unspecified abdominal pain
--- NOTE | 2019-09-05 16:34 | Discharge Summary ---
Date of Service September 05, 2019 Admission HPI Per Admitting Provider Lashawn Ragland is a 63-year-old female admitted medically on 09/03/19 for intractable vomiting. She has a reported history of anxiety and depression, with exacerbation of situational stressors over the past 1-2 years. Psychiatric consultation is requested to evaluate patient for "depression and anxiety" with concern that nausea may be related to increased stress. Pt was cooperative with psychiatric evaluation. She states that she has been "vomiting, nauseous, and with diarrhea", unable to calm her symptoms at home. She shares with this provider that she moved to [place] 5 years ago, just moving back to [place] in 11/2017 to care for her elderly mother. She states that her mother was diagnosed with Alzheimer's and after sustaining a fall had to be transferred to an SNF. Pt states that she is no longer caring for her mother at home, but still is overwhelmed with coordinating her care. "I know I have too much going on, I always have to step in and help out." Pt states that, in addition to fa estelita stress, she also suffers from chronic back pain with can be overwhelming at times. She states "I don't know what happens, between all this I sometimes get sick. I vomit and then just keep gagging. I think a lot of it's my nerves." Pt denies any significant changes to her psychiatric medication regimen. With the most recent addition being low-dose hydroxyzine for sleep. She states she is unsure if it is her situation or if her medication regimen is no longer effective. Most of her medications have been continued for several years, according to the patient. Medications are prescribed by her PCP. She states she had brief treatment with a psychiatrist and had a few therapy visits - but was unable to keep up with the services in the past due to cost. Pt denies SI, HI, SIB, A/V hallucinations, paranoia, freda/hypomania, other symptoms more suggestive of a bipolar presentation, OCD, PTSD, eating disorder, and other specific psychiatric symptoms. Admission Exam Per Admitting Provider Physical Exam Constitutional: WD/WN, vitals as above no acute distress Eyes: PERRL, conjunctivae normal, anicteric sclerae ENMT: external ear and nose normal, oropharynx normal Neck: trachea midline, no thyromegaly Respiratory: normal respiratory effort, lungs clear to auscultation Cardiovascular: Rate/Rhythm: regular rate Heart Sounds: no gallop, no murmur and no cardiac rub Vessels: no JVD Extremities: normal capillary refill; no calf tenderness and no edema Gastrointestinal (Abdomen): quiet bowel sounds, nondistended, well-healed surgical scars, soft, moderate mid-abdominal tenderness without rebound or guarding Musculoskeletal: Head/Neck/Chest: neck supple Extremities: strength 5/5 throughout; no cyanosis and no clubbing Skin: no rashes, warm and dry Neurologic: PERRL, EOMI no facial palsy no dysarthria or aphasia patellar DTR's 2/2 bilat Psychiatric: Orientation: alert and oriented x 3 Affect: euthymic affect Lymphatic: no cervical lymphadenopathy Principal Diagnosis Intractable nausea and vomiting--possible gastroparesis secondary to narcotics Left kidney lesion Anxiety, Depression Discharge Data Allergies Allergy/AdvReac Type Severity Reaction Status Date / Time Penicillins Allergy Unknown SWELLING Verified 09/03/19 15:[address] contrast Allergy Intermediate Unknown Uncoded 09/03/19 15:02 Consultations 09/03/19 17:28 ED Decision to Admit Stat 09/04/19 08:00 Consult Gastroenterology Routine Consult Psychiatry Routine Procedures Performed KUB:Nonobstructive bowel gas pattern. Hospital Course (1) Abdominal pain: As noted above. (2) Intractable nausea and vomiting: H/O Chronic nausea for least several months with recurrent abdominal pain and vomiting. Had Extensive work up in the past-- Multiple CTs, CTA, gallbladder ultrasound, EGD. KUB:Nonobstructive bowel gas pattern. Possible gastroparesis from narcotics Further GI work-up as outpatient--HIDA scan, gastric emptying study Continue omeprazole 40 mg daily Appreciate GI input Avoid narcotics as able Follows with pain management as outpatient (3) Abnormal urinalysis: Microscopic hematuria Left kidney lesion CT of abdomen / pelvis at that time showed 7 mm lesion superior pole left kidney, too small to characterize; no urinary tract calculi were seen. Urine culture: No growth Advised to follow-up with urology as outpatient (4) Essential hypertension: Monitor BP Continue lisinopril. (5) Chronic pain syndrome: H/O Chronic neck and back pain. Current analgesic regimen is oxycodone SR 10 mg BID + hydrocodone/acetaminophen 5/325 BID PRN. Patient currently reluctant to change her home analgesic regimen Advised to minimize secondary to GI symptoms Advised to follow-up with pain management as outpatient (6) Anxiety: As noted above. (7) Depression: Anxiety/Depression Continue home medications--buspirone, trazodone, venlafaxine. Appreciate psychiatry input Currently patient is not interested in any change of medications (8) Tobacco user: Smoking cessation counseling. Nicotine patch. (9) DVT prophylaxis: Lovenox SQ (10) Discharge planning issues: Plan to discharge home today Total Time Total Time Spent Total Time Spent (In Minutes): 37 minutes Total Time Includes: Examination of the Patient, Discharge Planning, Medication Reconciliation, Communication With Other Providers and Other Discharge Plan Discharge Items Patient Disposition: Home - Self-Care Reason For Visit: ABDOMINAL PAIN,NAUSEA,VOMITING Discharge Diagnosis: Intractable nausea and vomiting Left kidney lesion Anxiety, Depression Activity: Resume your previous activity Exercise/Sports: Gradually increase as tolerated Non-emergency contact: Primary Care Provider and Bead Flipper Call non-emergency contact if: you have any medication questions, your symptoms worsen, your pain is not controlled, your pain is worsening, your pain is un usual for you, your pain is concerning for you and you have a fever Follow-up/Referrals: Zion Guzman MD [Primary Care Provider] - Diet: Heart Healthy Addtl Attending Provider Instructions: Follow-up with your primary care physician Dr. Guzman on September 07, 2019 at 11 AM Follow-up with your slp for further work-up as outpatient Follow-up with the urologist as recommended for your evaluation of left kidney lesion as advised Minimize pain medications use as recommended by your slp as they could be contributing to your nausea, vomiting. Discussed with your brush painter for further adjustment of your medications. Seek immediate medical attention if your symptoms reoccur or worsen Pending Studies at Discharge: No Stand-Alone Forms: My iList, Smoking Cessation Medications and DC Order Prescriptions: New ranitidine HCl 150 mg capsule 150 mg PO BID Qty: 30 RF: 0 hydroxyzine HCl 25 mg Tablet 25 mg PO Q6H PRN (Reason: anxiety) Qty: 30 RF: 0 Continued aspirin [Aspirin Low Dose] 81 mg Tablet,Delayed Release (Dr/Ec) 81 mg PO QAM RF: 0 baclofen 10 mg Tablet 10 mg PO TID PRN (Reason: Muscle Spasm/Pain) RF: 0 buspirone 15 mg Tablet 15 mg PO TID RF: 0 cholecalciferol (vitamin D3) 2,000 unit Tablet 2,000 units PO QAM RF: 0 trazodone 50 mg Tablet 100 mg PO HS RF: 0 venlafaxine 225 mg Tablet Extended Release 24hr 225 mg PO QAM RF: 0 atorvastatin 20 mg tablet 20 mg PO QAM RF: 0 lisinopril 40 mg tablet 40 mg PO QAM RF: 0 ondansetron 4 mg tablet,disintegrating 4 mg PO Q8H PRN (Reason: Nausea) RF: 0 fluticasone propionate [Flonase Allergy Relief] 50 mcg/actuation [place],Suspension 2 spray INTRANASAL DAILY PRN (Reason: Congestion) RF: 0 loratadine 10 mg Tablet 10 mg PO DAILY PRN (Reason: congestion) RF: 0 oxycodone [OxyContin] 10 mg Tablet,Oral Only,Ext.Rel.12 Hr 10 mg PO Q12H RF: 0 omeprazole 40 mg capsule,delayed release(DR/EC) 40 mg PO DAILY Qty: 30 RF: 5 hydrocodone-acetaminophen 5-325 mg tablet 1 tab PO BID PRN (Reason: Pain) RF: 0 Discontinued hydroxyzine HCl 10 mg tablet 10 mg PO HS RF: 0 Discharge Orders: Discharge Order (Routine); Ordered 09/05/19 Ordered By: Teja Ludwig Admission Data Admit Date/Time: 09/03/19 18:17 Attending Provider: Teja Ludwig Admit Provider: Zion Palmer Primary Care Provider: Zion Guzman Other Providers: Zion Palmer ; Violeta Mccullough ; Erin Mariano Other Interventions: Discharge Summary Assessment (RN) Last Done: 09/05/19 17:02 DC Date/Time DO NOT enter until pt leaves facility: 09/05/19 17:58
== END 2019-09-05 17:58 | disposition home or self-care (01) | DRG 392 ==
LOC: ED 13:48 → 2W 18:17 → SUATTDRO 18:17 → 2W 19:21

== ENCOUNTER 2020-04-11 15:25 | Observation (INO) ==
[2020-04-11] MEDS ORDERED: SODIUM CHLORIDE 0.9% 1000ML 1,000 ML IV ONE (15:45)
[2020-04-11] MEDS ORDERED: ONDANSETRON INJ 2 MG/ML 2 ML VIAL IV STA (15:45)
[2020-04-11] MEDS ORDERED: FAMOTIDINE 20MG IV PUSH 20 MG/5 ML SYR IV STA (15:46)
[2020-04-11] MEDS ORDERED: HYDROmorphone INJ 1 MG/ML SYRINGE IV STA (15:46)
[2020-04-11] MEDS ORDERED: cefTRIAXone SODIUM 2,000 MG/70 ML BAG IV STA (15:47)
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
[2020-04-11 16:09] LABS: Basophils # (auto) 0.03 K/uL (0-0.2); Basophils % (auto) 0.3 %; Eosinophils # (auto) 0.27 K/uL (0-0.5); Eosinophils % (auto) 2.3 %; Hematocrit (blood only) 44.2 % (37-47); Hemoglobin 14.7 g/dL (12.0-16.0); Immature Granulocytes # (auto) 0.03 K/uL (0.00-0.02); Immature Granulocytes % (auto) 0.3 %; Lymphocytes % (auto) 19.1 %; Mean Corpuscular Hemoglobin 29.8 pg (25-34); Mean Corpuscular Hgb Conc 33.3 g/dL (32-36); Mean Corpuscular Volume 89.7 fL (80-100); Mean Platelet Volume 8.7 fL (7.4-10.4); Monocytes # (auto) 0.56 K/uL (0.11-0.59); Monocytes % (auto) 4.9 %; Neutrophils # (auto) 8.43 K/uL (1.4-6.5); Neutrophils % (auto) 73.1 %; Platelet Count 312 K/uL (130-400); RDW Coefficient of Variation 14.4 % (11.5-14.5); RDW Standard Deviation 47.3 fL (36.4-46.3); Red Blood Count 4.93 M/uL (4.2-5.4); White Blood Count 11.52 K/uL (4.8-10.8)
[2020-04-11 16:26] LABS: Alanine Aminotransferase 29 U/L (12-78); Albumin Level 3.9 gm/dl (3.4-5.0); Aspartate Aminotransferase 14 U/L (15-37); BUN Creatinine Ratio 16.2 (10-20); Blood Urea Nitrogen 14 mg/dl (7-18); Calcium 8.9 mg/dl (8.5-10.1); Carbon Dioxide 25 mmol/L (21-32); Chloride 105 mmol/L (98-107); Est GFR (African American) 83.3; Est GFR (Non-African American) 71.9; Glucose 104 mg/dl (70-99); Lipase 106 U/L (73-393); Potassium 4.3 mmol/L (3.5-5.1); Sodium 138 mmol/L (136-145)
[2020-04-11 16:31] LABS: Alkaline Phosphatase 80 U/L (45-117); Bilirubin,Total 0.3 mg/dl (0.2-1); Globulin 3.8 gm/dl (2.5-4.0); Total Protein 7.7 gm/dl (6.4-8.2); Troponin I < 0.015 ng/ml (0-0.045)
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
[2020-04-11] MEDS ORDERED: FLUTICASONE PROPIONATE NA SPR 16 GM BTL PRN (19:41)
[2020-04-11] MEDS ORDERED: BACLOFEN 10 MG TAB PO PRN (19:47)
[2020-04-11] MEDS ORDERED: PROMETHAZINE HCL 6.25 MG in SODIUM CHLORIDE 0.9% 50 ML IV PRN (20:01)
[2020-04-11] MEDS: MoRPHine SULFATE 2 MG/ML CARP IV PRN (20:19)
[2020-04-11 21:00] LABS: Magnesium 2.1 mg/dl (1.8-2.4); Phosphorus 3.2 mg/dl (2.5-4.9)
[2020-04-11] MEDS ORDERED: TRAZODONE HCL 100 MG TAB PO SCH (21:00)
[2020-04-11 21:17] LABS: Appearance Urine Clear (Clear); Bacteria Urine Automated Negative (Negative); Bilirubin Urine Negative (Negative); Blood Urine 1+ (Negative); Color Urine Yellow; Epithelial Cell Urine Auto 20-30 /lpf (0-5); Glucose Urine UA Negative (Negative); Ketones Urine Negative (Negative); Leukocyte Esterase Urine 1+ (Negative); Nitrite Urine Negative (Negative); Protein Urine Negative (Negative); Specific Gravity Urine 1.015 (1.000-1.030); Urobilinogen Urine Negative (Negative); pH Urine 5.5 (4.5-7.5)
[2020-04-11] MEDS: BusPIRone 15 MG TAB PO SCH (21:41)
[2020-04-11] MEDS: HEPARIN SOD 5,000 UNIT/0.5 ML VIAL SQ SCH (21:41)
[2020-04-11] MEDS: ONDANSETRON INJ 2 MG/ML 2 ML VIAL IV PRN (22:05)
[2020-04-12] MEDS: MoRPHine SULFATE 2 MG/ML CARP IV PRN ×2 (00:19→06:41)
[2020-04-12] MEDS: ONDANSETRON INJ 2 MG/ML 2 ML VIAL IV PRN (06:40)
[2020-04-12] MEDS: HEPARIN SOD 5,000 UNIT/0.5 ML VIAL SQ SCH (06:46)
--- NOTE | 2020-04-12 07:31 | Electrocardiogram Report ---
Test Reason : Blood Pressure : / mmHG Vent. Rate : 082 BPM Atrial Rate : 082 BPM P-R Int : 148 ms QRS Dur : 082 ms QT Int : 380 ms P-R-T Axes : 049 027 049 degrees QTc Int : 443 ms Normal sinus rhythm Possible Left atrial enlargement Low voltage QRS Borderline ECG When compared with ECG of 10-APR-2020 17:39, No significant change was found Confirmed by Oliverio Covington ([id number]) on 04/12/2020 7:31:15 AM Referred By: REFERRED SELF Confirmed By:Oliverio Covington
[2020-04-12] MEDS: BusPIRone 15 MG TAB PO SCH (08:46)
[2020-04-12] MEDS ORDERED: ASPIRIN 81 MG ECTAB PO SCH (09:00)
[2020-04-12] MEDS ORDERED: ATORVASTATIN 20 MG TAB PO SCH (09:00)
[2020-04-12] MEDS ORDERED: PREGABALIN 25 MG CAP PO SCH (09:00)
[2020-04-12] MEDS ORDERED: VENLAFAXINE HCL XR 75 MG CAPXR PO SCH (09:00)
[2020-04-12] MEDS ORDERED: HYDROCODONE/ACETAMINOPHEN 10/325 TAB PO PRN (10:03)
[2020-04-12] MEDS ORDERED: PROMETHAZINE HCL 25 MG TAB PO PRN (10:03)
[2020-04-12] MEDS ORDERED: ONDANSETRON 4 MG OD TAB PO PRN (10:03)
[2020-04-12 10:10] LABS: Hematocrit (blood only) 40.5 % (37-47); Hemoglobin 13.4 g/dL (12.0-16.0); Mean Corpuscular Hemoglobin 29.2 pg (25-34); Mean Corpuscular Hgb Conc 33.1 g/dL (32-36); Mean Corpuscular Volume 88.2 fL (80-100); Mean Platelet Volume 8.5 fL (7.4-10.4); Platelet Count 262 K/uL (130-400); RDW Coefficient of Variation 14.3 % (11.5-14.5); RDW Standard Deviation 46.3 fL (36.4-46.3); Red Blood Count 4.59 M/uL (4.2-5.4); White Blood Count 9.38 K/uL (4.8-10.8)
[2020-04-12] MEDS ORDERED: lisinopriL 40 MG TAB PO SCH (10:15)
[2020-04-12 10:42] LABS: BUN Creatinine Ratio 14.3 (10-20); Calcium 8.6 mg/dl (8.5-10.1); Creatinine Clr Calc Pharmacy 83.8 ml/min; Est GFR (African American) 105.4; Est GFR (Non-African American) 90.9; Magnesium 2.1 mg/dl (1.8-2.4); Phosphorus 3.3 mg/dl (2.5-4.9); Potassium 4.2 mmol/L (3.5-5.1)
--- NOTE | 2020-04-12 13:45 | Hospitalist Progress Note ---
Date of Service April 12, 2020 Assessment & Plan (1) Nausea & vomiting: -Patient with history of nausea and vomiting, admitted for vomiting in September, underwent evaluation with GI and psychiatry as well -Had Extensive work up in the past-- Multiple CTs, CTA, gallbladder ultrasound, EGD. -Possible gastroparesis from narcotics -Further GI work-up was recommended as outpatient--HIDA scan, gastric emptying study -Does not seem to be secondary to marijuana use, however patient gets offended when asked about marijuana/medical marijuana use -CT Abdomen pelvis obtained yesterday, unremarkable -Possibly secondary to or exacerbated by acute UTI -Continue IV hydration, IV antiemetics and IV Rocephin -Urine culture came back negative and blood culture sent pending -Blood culture is expected to be negative and the patient wants to go home -Doubt any UTI and will discontinue IV Rocephin Hepatitis C antibody is positive She has had blood transfusion years ago and prior hepatitis C antibody was negative Hepatitis C RNA viral load has been sent She was explained about possible hepatitis C infection and she will notified when the results come back She will have an appointment with GI as an outpatient (2) Acute UTI (urinary tract infection): UA positive for leuk esterase, yesterday -UA repeated in the ED today -patient given Rocephin yesterday and today in the emergency room -Urine culture pending -WBCs 14 point 5K yesterday, down to 11.5 today -Continue Rocephin for now -Has reported frequency and burning with urination, she also has suprapubic tenderness to palpation on physical exam -Yesterday she reported left flank pain, now resolved -Urine culture has been negative I will discontinue antibiotic (3) Abdominal pain: -Abdomen pelvis obtained yesterday, no acute findings noted -Abdomen on physical exam, seems to be benign, soft, positive bowel sounds, no guarding -Per patient, abdomen is bothering her due to vomiting, complains of central epigastric tenderness -No more abdominal pain, nausea and or vomiting (4) Chronic back pain: -Patient struggles with chronic back pain for several years, status post surgical interventions -Most recently, patient states that she was on gabapentin, but however then she got swollen up, and then was switched to Lyrica -Also continues to use hydrocodone -Says she was not able to take any medications for past 3 days due to nausea vomiting -Continue Lyrica, baclofen, IV morphine as needed (5) Anxiety: (6) Depression: -Continue venlafaxine, trazodone, buspirone, hydroxyzine as needed -Per chart review, suicidal attempt in 2012 -Seen by psychiatry, during last admission, in September 2009, at that time reported lots of stressors, including taking care of her mother with Alzheimer's disease -Patient is currently teary during my interview, says this is due to to her back pain and vomiting -Continue to monitor, consider psych consult if patient's mood not improving (7) Hyperlipidemia: -Continue statin Hypertension -Currently will hold lisinopril, will evaluate and restart when vomiting control Disposition: Plan to discharge home when medically stable DVT ppx: Subcu heparin CODE STATUS full Will be discharged home this afternoon Admission and Anticipated Discharge Date Admission Date: April 11, 2020 Subjective The patient was seen and examined in medical floor She does not have any more abdominal pain and the nausea and vomiting seems to be stopped She has started with clears orally and will advance as tolerated She wants to go home this afternoon Review of Systems Review of Systems: All systems reviewed and are unremarkable except as noted below Gastrointestinal: no abdominal pain, no bloating, no nausea and no vomiting Physical Exam Physical Exam: Sitting at the edge of the bed without any symptoms Constitutional: well developed, well nourished and + obese; no acute distress and not ill appearing Eyes: PERRL, conjunctivae normal, anicteric sclerae ENMT: external ear and nose normal, oropharynx normal Neck: trachea midline, no thyromegaly Respiratory: normal respiratory effort; no respiratory distress Auscultation: lungs clear to auscultation bilaterally Cardiovascular: Rate/Rhythm: regular rate and regular rhythm Heart Sounds: no murmur Gastrointestinal (Abdomen): Inspection/Auscultation: abdomen normal to inspection and normal bowel sounds; abdomen not distended Percussion/Palpation: abdomen soft; abdomen nontender Musculoskeletal: No acute arthritis involving any joints Neurologic: moves all extremities; no focal motor deficits Alert, awake and oriented x3 Results & Data Results & Data ([facility]) Vital Signs (Past 12 Hours) Vital Signs Temp Pulse Resp BP Pulse Ox 04/12/20 07:49 36.8 C 72 17 158/84 H 94 04/12/20 03:12 36.6 C 65 15 123/75 92 Laboratory Results Short CBC 04/11/20 04/12/20 Range/Units 15:58 09:49 WBC 11.52 H 9.38 (4.8-10.8) K/uL Hgb 14.7 13.4 (12.0-16.0) g/dL Hct 44.2 40.5 (37-47) % Plt Count 312 262 (130-400) K/uL BMP 04/11/20 04/12/20 15:58 09:49 Sodium 138 138 Potassium 4.3 4.2 Chloride 105 105 Carbon Dioxide 25 30 BUN 14 10 Creatinine 0.85 0.70 Glucose 104 H 92 Calcium 8.9 8.6 Cardiac Enzymes 04/11/20 Range/Units 15:58 Troponin I < 0.015 (0-0.045) ng/ml Liver Function 04/11/20 Range/Units 15:58 Total Bilirubin 0.3 (0.2-1) mg/dl AST 14 L (15-37) U/L ALT 29 (12-78) U/L Alkaline Phosphatase 80 (45-117) U/L Albumin 3.9 (3.4-5.0) gm/dl Urine 04/11/20 Range/Units 20:30 Urine Color Yellow Urine Appearance Clear (Clear) Urine pH 5.5 (4.5-7.5) Ur Specific Elbert 1.015 (1.000-1.030) Urine Protein Negative (Negative) Urine Glucose (UA) Negative (Negative) Medications Administered Current Inpatient Medications Hydrocodone Bitart/Acetaminophen ([place] 10/325) 1 tab PO Q8H PRN PRN Reason: Pain Stop: 04/26/20 10:02 Last Admin: 04/12/20 10:35 Dose: 1 tab Documented by: Aspirin (Ecotrin Ectab) 81 mg PO [facility] Stop: 05/12/20 08:59 Last Admin: 04/12/20 08:46 Dose: 81 mg Documented by: Atorvastatin Calcium (Lipitor) 20 mg PO [facility] Stop: 05/12/20 08:59 Last Admin: 04/11/20 21:42 Dose: 20 mg Documented by: Baclofen (Lioresal) 10 mg PO TID PRN PRN Reason: Muscle Spasm/Pain Stop: 05/11/20 19:46 Buspirone HCl (Buspar) 15 mg PO TID [facility] Stop: 05/11/20 20:59 Last Admin: 04/12/20 08:46 Dose: 15 mg Documented by: Fluticasone Propionate (Flonase) 2 sprays NA DAILY PRN PRN Reason: Congestion Stop: 05/11/20 19:40 Heparin Sodium (Porcine) (Heparin Sodium (Porcine)) 5,000 units SQ Q8 [facility] Stop: 05/11/20 21:59 Last Admin: 04/12/20 06:46 Dose: 5,000 units Documented by: Hydroxyzine HCl (Vistaril) 25 mg PO Q6H PRN PRN Reason: anxiety Stop: 05/11/20 19:40 Last Admin: 04/12/20 09:07 Dose: 25 mg Documented by: Ceftriaxone Sodium 2,000 mg/ (Dextrose) 70 mls @ 100 mls/hr IV DAILY@1600 [facility]; Protocol Stop: 04/17/20 15:59 Promethazine HCl 6.25 mg/ (Sodium Chloride) 50.25 mls @ 201 mls/hr IV Q6H PRN PRN Reason: Nausea And Vomiting Stop: 05/11/20 20:00 Last Infusion: 04/11/20 20:55 Dose: Infused Documented by: Lisinopril (Zestril) 40 mg PO QAM [facility] Stop: 05/12/20 10:14 Last Admin: 04/12/20 11:02 Dose: 40 mg Documented by: Morphine Sulfate (Morphine Sulfate) 2 mg IV Q4H PRN PRN Reason: Pain Stop: 04/25/20 19:48 Last Admin: 04/12/20 06:41 Dose: 2 mg Documented by: Ondansetron HCl (Zofran) 4 mg IV Q6H PRN PRN Reason: Nausea Stop: 05/11/20 19:26 Last Admin: 04/12/20 06:40 Dose: 4 mg Documented by: Ondansetron HCl (Zofran Odt) 4 mg PO Q8H PRN PRN Reason: Nausea Stop: 05/12/20 10:02 Pregabalin (Lyrica) 25 mg PO DAILY [facility] Stop: 05/12/20 08:59 Last Admin: 04/12/20 08:46 Dose: 25 mg Documented by: Promethazine HCl (Phenergan) 25 mg PO Q6H PRN PRN Reason: nausea and vomiting Stop: 05/12/20 10:02 Trazodone HCl (Desyrel) [address] [facility] Stop: 05/11/20 20:59 Last Admin: 04/11/20 21:41 Dose: 100 mg Documented by: Venlafaxine HCl (Effexor Extended Release) 225 mg PO [facility] Stop: 05/12/20 08:59 Last Admin: 04/12/20 08:46 Dose: 225 mg Documented by: Vitamin D (Vitamin D3) 2,000 units PO [facility] Stop: 05/13/20 08:59 (1) Abdominal pain Abdominal location: epigastric Qualified Code(s): R10.13 - Epigastric pain (2) Chronic back pain Back pain laterality: bilateral Back pain location: low back pain Sciatica presence: without sciatica Qualified Code(s): M54.5 - Low back pain; G89.29 - Other chronic pain
[2020-04-12] MEDS ORDERED: cefTRIAXone SODIUM 2,000 MG in DEXTROSE 5% 50 ML IV SCH (16:00)
--- NOTE | 2020-04-13 08:05 | Discharge Summary ---
Date of Service April 13, 2020 Admission HPI Per Admitting Provider Patient is a 64-year-old female, with history of chronic back pain, anxiety, depression, several episodes of intractable vomiting, who presented to ER yesterday with left flank pain, vomiting and UA was positive at that time for leuk esterase. She was given Rocephin at that time and CT of the abdomen and pelvis was obtained, did not show any acute abnormality. She was discharged with oral antibiotics and promethazine. Her white blood cell count was mildly elevated at that time. She came back today to emergency room as her vomiting continued and she felt sick, uncomfortable and continues to have abdominal pain. She says that she did not have any urinary symptoms yesterday, however now she says that she's been having urinary frequency, and some burning with urination as well. She received another dose of IV Rocephin today in the emergency room. Imaging was not repeated as felt unnecessary given she had CT abdomen pelvis done yesterday. And abdomen on exam is soft, nonacute, without any guarding, and overall benign. Patient was admitted in September, at that time she also struggled with vomiting, and chronic pain. At that time she was evaluated by GI and also by psychiatry, as it was believed patient may be having these symptoms due to anxiety and depression. She recently moved to [place] from [place] and she was taking care of her sick mother, with Alzheimer's. In addition, she had extensive work up in the past-- Multiple CTs, CTA, gallbladder ultrasound, EGD. She also continues to have difficulty with her chronic back pain, she states she already had 2 surgeries and continues to have pain due to lumbar stenosis, nothing to be done surgically though. Per patient, when her pain is not well controlled, she develops vomiting. Per GI however they feel that patient should try to avoid or decrease opioid use as this can contribute to her gastroparesis, and possibly causing her vomiting. Patient reports she was unable to take her pain medications for the past 2 to 3 days due to nausea and vomiting. She denies any fevers, chills, chest pain, shortness of breath. She lives with her younger brother and nephew. She says that 1 works a daily job, the other one works out of town for a period of time and then comes back home. She says that none of them were sick and they are being checked at work, checking their temperatures before they can even enter their workplace. Also denies eating anything unusual, such as mayonnaise, eggs or anything that could upset her stomach. She says that she sticks to a very strict diet, would eat banana, tea. In the emergency room, she was given IV Rocephin, IV Zofran, IV fluids, IV Dilaudid and Pepcid. Admission Exam Per Admitting Provider Physical Exam: Elderly obese female, laying in bed, in mild distress, tearing easily Constitutional: well developed, well nourished, + ill appearing and + obese Eyes: PERRL, conjunctivae normal, anicteric sclerae EOM intact bilaterally ENMT: external ear and nose normal, oropharynx normal Neck: trachea midline, no thyromegaly normal visual inspection Respiratory: normal respiratory effort, lungs clear to auscultation no cough Auscultation: no crackles, no rhonchi and no wheezes Cardiovascular: RRR, no murmur, no edema Chest (Breasts): Chest: normal inspection of chest Gastrointestinal (Abdomen): Inspection/Auscultation: abdomen normal to inspection and normal bowel sounds; abdomen not distended Percussion/Palpation: + abdomen tender (to Palpation epigastric region); no guarding and abdomen not rigid Musculoskeletal: no cyanosis or clubbing, extremities motor strength 5/5 Head/Neck/Chest: normocephalic, head atraumatic and neck supple Skin: no rashes, warm and dry Neurologic: PERRL, EOMI, accommodation nl, no face palsy, no dysarthria moves all extremities; no focal motor deficits Motor/Sensory: no tremor Psychiatric: A+Ox3, euthymic affect Speech: normal rate/rhythm/volume of speech Affect: + anxious affect Patient is tearing easily during our conversation Genitourinary: no CVA tenderness Positive suprapubic tenderness to palpation Lymphatic: no lymphedema Principal Diagnosis Nausea and vomiting-resolved, hepatitis C antibody positivity-viral load is pending, chronic back pain, anxiety/depression Discharge Exam Constitutional well developed, well nourished and + obese; no acute distress and not ill ap pearing Eyes PERRL, conjunctivae normal, anicteric sclerae ENMT external ear and nose normal, oropharynx normal Neck trachea midline, no thyromegaly Respiratory normal respiratory effort; no respiratory distress Auscultation: lungs clear to auscultation bilaterally Cardiovascular Rate/Rhythm: regular rate and regular rhythm Heart Sounds: no murmur Gastrointestinal (Abdomen) Inspection/Auscultation: abdomen normal to inspection and normal bowel sounds; abdomen not distended Percussion/Palpation: abdomen soft; abdomen nontender Neurologic moves all extremities; no focal motor deficits Discharge Data Allergies Allergy/AdvReac Type Severity Reaction Status Date / Time Penicillins Allergy Unknown SWELLING Verified 04/11/20 17:[address] contrast Allergy Intermediate Unknown Uncoded 04/11/20 17:19 Consultations 04/11/20 18:01 ED Decision to Admit Stat Hospital Course (1) Nausea & vomiting: -Patient with history of nausea and vomiting, admitted for vomiting in September, underwent evaluation with GI and psychiatry as well -Had Extensive work up in the past-- Multiple CTs, CTA, gallbladder ultrasound, EGD. -Possible gastroparesis from narcotics -Further GI work-up was recommended as outpatient--HIDA scan, gastric emptying study -Does not seem to be secondary to marijuana use, however patient gets offended when asked about marijuana/medical marijuana use -CT Abdomen pelvis obtained yesterday, unremarkable -Possibly secondary to or exacerbated by acute UTI -Continue IV hydration, IV antiemetics and IV Rocephin -Urine culture came back negative and blood culture sent pending -Blood culture is expected to be negative and the patient wants to go home -Doubt any UTI and will discontinue IV Rocephin Hepatitis C antibody is positive She has had blood transfusion years ago and prior hepatitis C antibody was negative Hepatitis C RNA viral load has been sent She was explained about possible hepatitis C infection and she will notified when the results come back She will have an appointment with GI as an outpatient (2) Acute UTI (urinary tract infection): UA positive for leuk esterase, yesterday -UA repeated in the ED today -patient given Rocephin yesterday and today in the emergency room -Urine culture pending -WBCs 14 point 5K yesterday, down to 11.5 today -Continue Rocephin for now -Has reported frequency and burning with urination, she also has suprapubic tenderness to palpation on physical exam -Yesterday she reported left flank pain, now resolved -Urine culture has been negative I will discontinue antibiotic (3) Abdominal pain: -Abdomen pelvis obtained yesterday, no acute findings noted -Abdomen on physical exam, seems to be benign, soft, positive bowel sounds, no guarding -Per patient, abdomen is bothering her due to vomiting, complains of central epigastric tenderness -No more abdominal pain, nausea and or vomiting (4) Chronic back pain: -Patient struggles with chronic back pain for several years, status post surgical interventions -Most recently, patient states that she was on gabapentin, but however then she got swollen up, and then was switched to Lyrica -Also continues to use hydrocodone -Says she was not able to take any medications for past 3 days due to nausea vomiting -Continue Lyrica, baclofen, IV morphine as needed (5) Anxiety: (6) Depression: -Continue venlafaxine, trazodone, buspirone, hydroxyzine as needed -Per chart review, suicidal attempt in 2012 -Seen by psychiatry, during last admission, in September 2009, at that time r eported lots of stressors, including taking care of her mother with Alzheimer's disease -Patient is currently teary during my interview, says this is due to to her back pain and vomiting -Continue to monitor, consider psych consult if patient's mood not improving (7) Hyperlipidemia: -Continue statin Hypertension -Currently will hold lisinopril, will evaluate and restart when vomiting control Disposition: Plan to discharge home when medically stable DVT ppx: Subcu heparin CODE STATUS full Will be discharged home this afternoon Total Time Total Time Spent Total Time Spent (In Minutes): 35 minutes Total Time Includes: Examination of the Patient, Discharge Planning, Medication Reconciliation and Communication With Other Providers Discharge Plan Discharge Items Patient Disposition: Home - Self-Care Reason For Visit: INTRACTABLE VOMITING Discharge Diagnosis: Nausea and vomiting-resolved, hepatitis C antibody positivity-viral load is pending, chronic back pain, anxiety/depression Condition on Discharge: Good Activity: Resume your previous activity Non-emergency contact: Primary Care Provider Call non-emergency contact if: you have any medication questions Follow-up/Referrals: Zion Guzman MD [Primary Care Provider] - (Your doctor's office will call with an appointment within 7 days) Diet: Low Fiber and Low Fat Addtl Attending Provider Instructions: Please take precaution to avoid falls Try small amount of food at one time to prevent nausea and vomiting Pending Studies at Discharge: Yes Studies:: Hepatitis C viral load Stand-Alone Forms: My [facility], Smoking Cessation Medications and DC Order Prescriptions: Continued aspirin [Aspirin Low Dose] 81 mg Tablet,Delayed Release (Dr/Ec) 81 mg PO QAM RF: 0 baclofen 10 mg Tablet 10 mg PO TID PRN (Reason: Muscle Spasm/Pain) RF: 0 buspirone 15 mg Tablet 15 mg PO TID RF: 0 cholecalciferol (vitamin D3) 2,000 unit Tablet 2,000 units PO QAM RF: 0 trazodone 50 mg Tablet 100 mg PO HS RF: 0 venlafaxine 225 mg Tablet Extended Release 24hr 225 mg PO QAM RF: 0 atorvastatin 20 mg tablet 20 mg PO QAM RF: 0 lisinopril 40 mg tablet 40 mg PO QAM RF: 0 ondansetron 4 mg tablet,disintegrating 4 mg PO Q8H PRN (Reason: Nausea) RF: 0 fluticasone propionate [Flonase Allergy Relief] 50 mcg/actuation [place],Suspension 2 spray INTRANASAL DAILY PRN (Reason: Congestion) RF: 0 promethazine 25 mg tablet 25 mg PO Q6H PRN (Reason: nausea and vomiting) Qty: 10 RF: 0 hydrocodone-acetaminophen 10-325 mg tablet 1 tab PO Q8H PRN (Reason: Pain) RF: 0 pregabalin 25 mg capsule 25 mg PO DAILY RF: 0 hydroxyzine HCl 25 mg Tablet 25 mg PO Q6H PRN (Reason: anxiety) Qty: 30 RF: 0 Discharge Orders: Discharge Order (Routine); Ordered 04/12/20 Ordered By: Rubina Birmingham Admission Data Admit Date/Time: 04/11/20 18:16 Attending Provider: Rubina Birmingham Admit Provider: Bartolome Gipson Primary Care Provider: Zion Guzman Other Providers: Bartolome Gipson Other Interventions: Discharge Summary Assessment (RN) Last Done: 04/12/20 13:51 DC Date/Time DO NOT enter until pt leaves facility: 04/12/20 14:14
[2020-04-13] MEDS ORDERED: CHOLECALCIFEROL 1,000 UNITS 25 MCG TAB PO SCH (09:00)
== END 2020-04-12 14:14 | disposition home or self-care (01) ==
LOC: ED 15:25 → 2N 15:25 → SUATTDRO 18:16 → 2N 19:04

== ENCOUNTER 2020-06-02 19:29 | Observation (INO) ==
[2020-06-02] MEDS ORDERED: KETOROLAC TROMETHAMINE 15 MG/ML VIAL IV STA (21:44)
[2020-06-02] MEDS ORDERED: ONDANSETRON INJ 2 MG/ML 2 ML VIAL IV STA (21:44)
[2020-06-02] MEDS ORDERED: SODIUM CHLORIDE 0.9% 500 ML IV SCH (21:45)
[2020-06-02 22:29] LABS: Hematocrit (blood only) 46.2 % (37-47); Hemoglobin 15.1 g/dL (12.0-16.0); Mean Corpuscular Hemoglobin 29.9 pg (25-34); Mean Corpuscular Hgb Conc 32.7 g/dL (32-36); Mean Corpuscular Volume 91.5 fL (80-100); Mean Platelet Volume 8.7 fL (7.4-10.4); Platelet Count 381 K/uL (130-400); RDW Coefficient of Variation 14.4 % (11.5-14.5); RDW Standard Deviation 48.3 fL (36.4-46.3); Red Blood Count 5.05 M/uL (4.2-5.4); White Blood Count 15.18 K/uL (4.8-10.8)
[2020-06-02 22:46] LABS: Alanine Aminotransferase 33 U/L (12-78); Albumin Level 3.9 gm/dl (3.4-5.0); Aspartate Aminotransferase 16 U/L (15-37); BUN Creatinine Ratio 24.1 (10-20); Blood Urea Nitrogen 18 mg/dl (7-18); Calcium 9.6 mg/dl (8.5-10.1); Carbon Dioxide 27 mmol/L (21-32); Chloride 102 mmol/L (98-107); Est GFR (African American) 96.9; Est GFR (Non-African American) 83.6; Glucose 81 mg/dl (70-99); Magnesium 2.2 mg/dl (1.8-2.4); Potassium 4.1 mmol/L (3.5-5.1); Sodium 137 mmol/L (136-145)
[2020-06-02 22:52] LABS: Basophils # (auto) 0.04 K/uL (0-0.2); Basophils % (auto) 0.3 %; Eosinophils # (auto) 0.51 K/uL (0-0.5); Eosinophils % (auto) 3.4 %; Immature Granulocytes # (auto) 0.06 K/uL (0.00-0.02); Immature Granulocytes % (auto) 0.4 %; Lymphocytes # (auto) 5.24 K/uL (1.2-3.4); Lymphocytes % (auto) 34.5 %; Monocytes % (auto) 7.2 %; Neutrophils # (auto) 8.23 K/uL (1.4-6.5); Neutrophils % (auto) 54.2 %
[2020-06-02 22:56] LABS: Albumin Globulin Ratio 0.9 (0.9-2); Alkaline Phosphatase 82 U/L (45-117); Bilirubin,Total 0.3 mg/dl (0.2-1); Creatine Kinase 98 U/L (26-192); Globulin 4.3 gm/dl (2.5-4.0); Total Protein 8.2 gm/dl (6.4-8.2); Troponin I < 0.015 ng/ml (0-0.045)
[2020-06-02] MEDS ORDERED: HYDROmorphone INJ 1 MG/ML SYRINGE IV STA (23:19)
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
[2020-06-03 00:35] LABS: Appearance Urine Clear (Clear); Bacteria Urine Automated Negative (Negative); Bilirubin Urine Negative (Negative); Blood Urine Trace (Negative); Color Urine Yellow; Epithelial Cell Urine Auto 20-30 /lpf (0-5); Glucose Urine UA Negative (Negative); Ketones Urine Negative (Negative); Leukocyte Esterase Urine 2+ (Negative); Nitrite Urine Negative (Negative); Protein Urine Negative (Negative); RBC Urine Automated 0-4 /hpf (0-4); Specific Gravity Urine 1.016 (1.000-1.030); Urobilinogen Urine Negative (Negative); pH Urine 6.5 (4.5-7.5)
[2020-06-03] MEDS ORDERED: HYDROmorphone INJ 0.5 MG/0.5 ML SYR IV STA (01:37)
[2020-06-03] MEDS ORDERED: OXYCODONE HCL IR 5 MG TAB (IMMEDIATE RELEASE) PO PRN (01:55)
[2020-06-03] MEDS ORDERED: lisinopriL 40 MG TAB PO ONE (02:15)
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
[2020-06-03] MEDS: LIDOCAINE 5% 1 PATCH TD SCH (02:31)
[2020-06-03] MEDS ORDERED: CEFEPIME 2,000 MG/20 ML VIAL IV STA (02:38)
[2020-06-03 03:24] LABS: Basophils # (auto) 0.05 K/uL (0-0.2); Basophils % (auto) 0.3 %; Eosinophils # (auto) 0.59 K/uL (0-0.5); Eosinophils % (auto) 3.8 %; Hematocrit (blood only) 41.7 % (37-47); Hemoglobin 13.7 g/dL (12.0-16.0); Immature Granulocytes # (auto) 0.05 K/uL (0.00-0.02); Immature Granulocytes % (auto) 0.3 %; Lymphocytes # (auto) 4.69 K/uL (1.2-3.4); Lymphocytes % (auto) 30.3 %; Mean Corpuscular Hemoglobin 29.7 pg (25-34); Mean Corpuscular Hgb Conc 32.9 g/dL (32-36); Mean Corpuscular Volume 90.5 fL (80-100); Mean Platelet Volume 8.7 fL (7.4-10.4); Monocytes # (auto) 0.93 K/uL (0.11-0.59); Neutrophils # (auto) 9.16 K/uL (1.4-6.5); Neutrophils % (auto) 59.3 %; Platelet Count 317 K/uL (130-400); RDW Coefficient of Variation 14.3 % (11.5-14.5); RDW Standard Deviation 47.9 fL (36.4-46.3); Red Blood Count 4.61 M/uL (4.2-5.4); White Blood Count 15.47 K/uL (4.8-10.8)
[2020-06-03 03:41] LABS: BUN Creatinine Ratio 26.1 (10-20); Blood Urea Nitrogen 22 mg/dl (7-18); Calcium 8.5 mg/dl (8.5-10.1); Carbon Dioxide 27 mmol/L (21-32); Chloride 105 mmol/L (98-107); Est GFR (African American) 85.8; Glucose 101 mg/dl (70-99); Potassium 4.4 mmol/L (3.5-5.1); Sodium 137 mmol/L (136-145)
[2020-06-03] MEDS ORDERED: PROMETHAZINE HCL 12.5 MG in SODIUM CHLORIDE 0.9% 50 ML IV PRN (03:41)
[2020-06-03] MEDS ORDERED: CEFEPIME CONSULT ACTIVE PRN (03:41)
[2020-06-03] MEDS ORDERED: LORazepam 0.5 MG/1 ML VIAL IV PRN (03:41)
[2020-06-03] MEDS ORDERED: SODIUM CHLORIDE 0.9% 1000ML 1,000 ML IV ONE (03:41)
[2020-06-03] MEDS: PATIENT'S HEIGHT AND/OR WEIGHT NEEDED SCH ×2 (04:33→05:14)
[2020-06-03] MEDS: BACLOFEN 10 MG TAB PO PRN ×3 (05:14→17:19)
[2020-06-03] MEDS: lisinopriL 40 MG TAB PO SCH (05:16)
[2020-06-03] MEDS: NICOTINE 14 MG/24 HR PATCH TD SCH (05:19)
[2020-06-03] MEDS: HYDROCODONE/ACETAMOPHEN 5/325MG TAB PO PRN ×4 (05:20→23:38)
--- NOTE | 2020-06-03 06:53 | CT Scan Report ---
CT OF THE CERVICAL SPINE CLINICAL HISTORY: Severe neck pain COMPARISON STUDY: Fluoroscopic study dated 11/10/2018 CT DOSE: TECHNIQUE: CT scan of the cervical spine was performed from the skull base to the thoracic inlet. Myranda ges are reviewed in the axial, sagittal, and coronal planes. IV contrast was not administered for thi s examination. A dose lowering technique was utilized adhering to the principles of ALARA. FINDINGS: The visualized portions of the lung apices reveal no evidence of pneumothorax. No acute fractures are visualized. Minimal anterolisthesis of C3 on C4 is felt to be degenerative. Th ere are postsurgical changes of anterior discectomy and spinal fusion at the C4-C7 level. There is mu ltilevel facet joint arthropathy. If further evaluation of disc and cord pathology is desired, an MRI would be considered the test of choice in follow-up. IMPRESSION: 1. Postsurgical and degenerative change 2. No acute fractures or traumatic subluxations identified ACT 112: Negative or not required by law. Electronically signed by: Navin Puentes M.D. 06/03/2020 6:51 AM
--- NOTE | 2020-06-03 06:57 | CT Scan Report ---
CT lumbar spine wo con CT DOSE: 1.84 mGy.cm CLINICAL HISTORY: pain TECHNIQUE: Helical images were acquired in transverse plane. Reformatted sagittal and coronal images were reviewed. A dose lowering technique was utilized adhering to the principles of ALARA. CONTRAST: No contrast was administered COMPARISON STUDY: 12/27/2018 FINDINGS: There is a T12 compression fracture status post vertebroplasty. L1-2 level: There is an L1 compression fracture status post vertebroplasty. There is 9 mm of retropul leo. The patient is status post a posterior laminectomy. L2-3 level: There is a mild superior endplate L2 compression fracture. There is a circumferential dis c bulge with mild spinal stenosis. There is no significant foraminal narrowing L3-4 level: There is a circumferential disc bulge with mild spinal stenosis. There is a superior endp late L4 compression deformity. There is an L3-4 posterior spinal process spacer L4-5 level: There is a circumferential disc bulge with mild spinal stenosis. There is facet joint art hropathy. L5-S1 level: There is no evidence of significant disc bulge or focal herniation. There is no evidence of spinal or foraminal stenosis. IMPRESSION: 1. No significant change from the preceding study 2. Multiple prior compression fractures with T12 and L1 vertebral plasties. Postsurgical changes of a n L1 posterior laminectomy and L3-4 spinous process spacer. 3. No acute fractures or traumatic subluxations 4. Multilevel degenerative change ACT 112: Negative or not required by law. Electronically signed by: Navin Puentes M.D. 06/03/2020 6:56 AM
--- NOTE | 2020-06-03 07:06 | XRay Report ---
XR chest 1V portable CLINICAL HISTORY: weakness COMPARISON STUDY: 01/18/2020 FINDINGS: The cardiac and mediastinal contours are normal. There is no evidence of focal pulmonary co nsolidation. There is no evidence of failure. No pleural effusions are visualized.[Postsurgical bell es are present within the cervical and thoracic spine. Arthritic changes are present within the shoul ders. IMPRESSION: No active disease in the chest. ACT 112: Negative or not required by law. Electronically signed by: Navin Puentes M.D. 06/03/2020 7:05 AM
--- NOTE | 2020-06-03 07:10 | XRay Report ---
XR shoulder LT min 2V routine CLINICAL HISTORY: Left shoulder pain COMPARISON: None. DISCUSSION: No acute fractures or dislocations are visualized. There are advanced degenerative change s within the glenohumeral joint. Postsurgical changes are present within the cervical and thoracic sp ine. IMPRESSION: 1. Advanced degenerative change 2. No acute fractures ACT 112: Negative or not required by law. Electronically signed by: Navin Puentes M.D. 06/03/2020 7:08 AM
--- NOTE | 2020-06-03 07:18 | CT Scan Report ---
CT OF THE THORACIC SPINE CLINICAL HISTORY: Thoracic spine pain. COMPARISON STUDY: Thoracic spine radiographs August 03, 2013. Chest CT January 29, 2019. TECHNIQUE: Helical axial images of the thoracic spine were obtained. Sagittal and coronal reconstru ctions were viewed. Automated exposure control was utilized for the study. A dose lowering techniqu e was utilized adhering to the principles of ALARA. FINDINGS: Cervical spine and lumbar spine CT will be reported separately. Bilateral pedicle screw fus ion at T7 and T8 is noted. Postoperative appearance is unchanged. Hardware is intact. T12 and L1 vert ebra plasties are noted. Schmorl's nodes at T10 to chronic. Slight loss of height of T11 is similar t o chest CT of January 29, 2019. There is no acute thoracic spine fracture. There is no suspicious osseo us lesion. Moderate multilevel degenerative changes are present. Facet joints are intact. Several old left rib fractures are incidentally noted. Mild dilatation of the ascending aorta, measuring up to 4 cm, is unchanged and prior chest CT. IMPRESSION: 1. No acute thoracic spine fracture or subluxation. 2. Slight wedging of T11 which is chronic. 3. Stable postoperative findings within the thoracic spine status post T7-T8 fusion. ACT 112: Negative or not required by law. Electronically signed by: [place] M.D. 06/03/2020 7:17 AM
[2020-06-03] MEDS ORDERED: lisinopriL 40 MG TAB PO SCH (09:00)
[2020-06-03] MEDS: VENLAFAXINE HCL XR 75 MG CAPXR PO SCH (09:14)
[2020-06-03] MEDS: ATORVASTATIN 20 MG TAB PO SCH (09:14)
[2020-06-03] MEDS: BusPIRone 15 MG TAB PO SCH ×3 (09:15→20:16)
[2020-06-03] MEDS: ASPIRIN 81 MG ECTAB PO SCH (09:15)
[2020-06-03] MEDS: KETOROLAC TROMETHAMINE 15 MG/ML VIAL IV PRN (09:15)
[2020-06-03] MEDS: CEFEPIME 2,000 MG in SYRINGE 7.5 ML IV SCH ×2 (09:15→17:47)
[2020-06-03] MEDS: ENOXAPARIN INJ 40 MG/0.4 ML SYR SQ SCH (09:15)
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
[2020-06-03] MEDS: ACETAMINOPHEN 325 MG TAB PO PRN (10:43)
[2020-06-03] MEDS: HYDROmorphone INJ 1 MG/ML SYRINGE IV PRN ×2 (13:06→19:44)
--- NOTE | 2020-06-03 14:26 | Magnetic Resonance Report ---
MR lumbar spine wo con CLINICAL HISTORY: Back pain TRAUMA TECHNIQUE: Sagittal and axial T1, T2 and STIR images were obtained. COMPARISON STUDY: CT scan dated 06/03/2020, MRI dated 10/22/2018 OBSERVATIONS: The vertebral bodies and posterior elements appear intact. There is no abnormal bony signal present t o suggest a marrow replacement process. There are no areas of marrow replacement to indicate metastatic disease. There is evidence for prior T12 and L1 vertebral plasties. There are old T12-L1 L2 L4 and L5 compression deformities. There is ev idence for prior T12 and L1 vertebroplasties. The L1 fracture demonstrates 8 mm of retropulsion. Ther e is evidence for posterior laminectomy at the L1 level. L1-2: There is a mild circumferential disc bulge. There is no significant spinal or foraminal stenosi s L2-3: There is a mild circumferential disc bulge. There is facet joint arthropathy. There is mild spi nal canal narrowing. There is no significant foraminal stenosis L3-4: There is a circumferential disc bulge. There is facet joint arthropathy. There is an L3-4 spino us process spacer. There is mild spinal canal narrowing. There is minor bilateral foraminal narrowing L4-5: There is a circumferential disc bulge. There is no significant spinal stenosis. There is facet joint arthropathy. There is minor bilateral foraminal narrowing L5-S1: No disc protrusions or extrusions. No evidence of spinal canal or neural foraminal compromise. The conus medullaris and cauda equina appear normal. IMPRESSION: 1. No significant change from the preceding study 2. Evidence for multiple old vertebral body compression fractures with evidence for prior vertebropla sties at the T12 level and L1 level.. 3. The L1 fracture demonstrates 8 mm of retropulsion. This is relatively similar to the prior study 4. Multilevel degenerative changes with mild multilevel spinal canal narrowing and mild multilevel fo raminal narrowing ACT 112: Negative or not required by law. Electronically signed by: Navin Puentes M.D. 06/03/2020 2:24 PM
--- NOTE | 2020-06-03 15:23 | Communication Note ---
Date of Service: June 03, 2020 Pt was seen and examined. Sitting in bed with no distress. Pt said that back pain is much better with the pain med. She said that she continues experience some shoulder pain and decrease ROM that is chronic. She said that dr. Arias was going to make one of her colleague to check her left shoulder. She said that she follows with pain management but ran out of pain meds because in the few days she took extra because her pain was worsening. She said that she is due to get a new refill with pain management on 06/07. She would like to get a script for narcotic for 2 days to last until seeing pain management on 06/07. She had an MRI lumbar done today and MRI report reviewed with her. She denies any urinary symptoms. Denies any chest pain, palpitation, dizziness and SOB. Will continue pain management for now. Ortho on board. Continue IV abx for now. Follow up blood cx and urine cx. Monitor CBC. MD Kaushik
[2020-06-03] MEDS ORDERED: TRAZODONE HCL 100 MG TAB PO SCH (21:00)
--- NOTE | 2020-06-03 22:40 | Electrocardiogram Report ---
Test Reason : Blood Pressure : / mmHG Vent. Rate : 109 BPM Atrial Rate : 109 BPM P-R Int : 154 ms QRS Dur : 084 ms QT Int : 338 ms P-R-T Axes : 046 034 050 degrees QTc Int : 455 ms Sinus tachycardia Otherwise normal ECG When compared with ECG of 11-APR-2020 16:09, No significant change was found Confirmed by Oliverio Covington ([id number]) on 06/03/2020 10:40:30 PM Referred By: REFERRED SELF Confirmed By:Oliverio Covington
[2020-06-04] MEDS: CEFEPIME 2,000 MG in SYRINGE 7.5 ML IV SCH (02:53)
[2020-06-04 05:50] LABS: Hematocrit (blood only) 40.7 % (37-47); Hemoglobin 12.9 g/dL (12.0-16.0); Mean Corpuscular Hemoglobin 29.7 pg (25-34); Mean Corpuscular Hgb Conc 31.7 g/dL (32-36); Mean Corpuscular Volume 93.8 fL (80-100); Mean Platelet Volume 8.7 fL (7.4-10.4); Platelet Count 301 K/uL (130-400); RDW Coefficient of Variation 14.2 % (11.5-14.5); RDW Standard Deviation 49.3 fL (36.4-46.3); Red Blood Count 4.34 M/uL (4.2-5.4); White Blood Count 9.91 K/uL (4.8-10.8)
[2020-06-04] MEDS: HYDROCODONE/ACETAMOPHEN 5/325MG TAB PO PRN ×3 (06:29→15:16)
[2020-06-04] MEDS ORDERED: ONDANSETRON INJ 2 MG/ML 2 ML VIAL IV PRN (06:35)
[2020-06-04] MEDS ORDERED: HYDROmorphone INJ 1 MG/ML SYRINGE IV PRN (06:35)
[2020-06-04] MEDS ORDERED: LORazepam 0.25 MG/0.5 ML VIAL IV PRN (06:36)
[2020-06-04] MEDS ORDERED: SODIUM CHLORIDE 0.9% 1000ML 1,000 ML IV ONE (06:40)
--- NOTE | 2020-06-04 09:23 | Communication Note ---
Date of Service: June 04, 2020 Attending note: Patient admitted on acute on chronic left shoulder pain, back pain No evidence of sepsis on admission Patient was afebrile, had mild leukocytosis, tachycardia-all symptom has resolved after IV fluids Normal white count today UA positive for leukocyte Estrace only, no bacteria, nitrite negative Does not have any symptoms: No dysuria, no increased frequency no fever or chills We will DC broad-spectrum antibiotic IV cefepime Empiric antibiotic IV Rocephin for probable UTI Antibiotic will be discontinued if culture negative Niki Dhaliwal MD
--- NOTE | 2020-06-04 09:33 | Orthopedic Progress Note ---
Date of Service June 04, 2020 Assessment & Plan (1) Intractable back pain: No acute fractures noted on updated lumbar MRI. Mild degenerative changes noted. No evidence of significant spinal stenosis. No acute surgical intervention required. Continue with pain control. May consider physical therapy. Ambulate ad parul. Lifting as tolerated. Follow up on an as needed basis as an outpatient. Will sign off for now. Thank you for this consult. Admission and Anticipated Discharge Date Admission Date: June 03, 2020 Supervising Physician Co-Signing Physician Notes Dr. Juan David Arias Subjective Continued back and shoulder pain Review of Systems Review of Systems: All systems reviewed & are unremarkable except as noted in HPI & below Physical Exam Physical Exam: unchanged Results & Data ([facility]) Vital Signs (Past 12 Hours) Vital Signs Temp Pulse Resp BP Pulse Ox 06/04/20 07:14 36.5 C 66 16 124/77 94 06/03/20 23:29 36.5 C 71 16 132/79 95 Diagnostic Findings [place], [place] [phone] Magnetic Resonance Report Patient: CHANTELLE ENCISO Date: 06/03/20 MR#: [id number]: [address] Acct ID:[id number]: Date: [address] [place] [address] Zip: [place] [address] Age: 64Location: 3N Sex: FRoom/Bed: N378- Att Phy: Kimmy Faulkner M.D.Diagnosis: SEPSIS Jacquelyn Phy: Zion Guzman III, MDService Date: 06/03/20 Fam Phy: Zion Guzman III, MDInterpreting Phy: Navin Puentes MD Admit Phy: Tima Balbuena MD Ordering Phy: Daniela Phan cc: ~ MR lumbar spine wo con CLINICAL HISTORY: Back pain TRAUMA TECHNIQUE: Sagittal and axial T1, T2 and STIR images were obtained. COMPARISON STUDY: CT scan dated 06/03/2020, MRI dated 10/22/2018 OBSERVATIONS: The vertebral bodies and posterior elements appear intact. There is no abnormal bony signal present to suggest a marrow replacement process. There are no areas of marrow replacement to indicate metastatic disease. There is evidence for prior T12 and L1 vertebral plasties. There are old T12-L1 L2 L4 and L5 compression deformities. There is evidence for prior T12 and L1 vertebroplasties. The L1 fracture demonstrates 8 mm of retropulsion. There is e vidence for posterior laminectomy at the L1 level. L1-2: There is a mild circumferential disc bulge. There is no significant spinal or foraminal stenosis L2-3: There is a mild circumferential disc bulge. There is facet joint arthropathy. There is mild spinal canal narrowing. There is no significant foraminal stenosis L3-4: There is a circumferential disc bulge. There is facet joint arthropathy. There is an L3-4 spinous process spacer. There is mild spinal canal narrowing. There is minor bilateral foraminal narrowing L4-5: There is a circumferential disc bulge. There is no significant spinal stenosis. There is facet joint arthropathy. There is minor bilateral foraminal narrowing L5-S1: No disc protrusions or extrusions. No evidence of spinal canal or neural foraminal compromise. The conus medullaris and cauda equina appear normal. IMPRESSION: 1. No significant change from the preceding study 2. Evidence for multiple old vertebral body compression fractures with evidence for prior vertebroplasties at the T12 level and L1 level.. 3. The L1 fracture demonstrates 8 mm of retropulsion. This is relatively similar to the prior study 4. Multilevel degenerative changes with mild multilevel spinal canal narrowing and mild multilevel foraminal narrowing ACT 112: Negative or not required by law. Electronically signed by: Navin Puentes M.D. 06/03/2020 2:24 PM Dictated: 06/03/20 1418 Transcribed: 06/03/20 1418
[2020-06-04] MEDS: BACLOFEN 10 MG TAB PO PRN (10:05)
[2020-06-04] MEDS: VENLAFAXINE HCL XR 75 MG CAPXR PO SCH (10:05)
[2020-06-04] MEDS: ATORVASTATIN 20 MG TAB PO SCH (10:05)
[2020-06-04] MEDS: lisinopriL 40 MG TAB PO SCH (10:05)
[2020-06-04] MEDS: ENOXAPARIN INJ 40 MG/0.4 ML SYR SQ SCH (10:06)
[2020-06-04] MEDS: NICOTINE 14 MG/24 HR PATCH TD SCH (10:06)
[2020-06-04] MEDS: LIDOCAINE 5% 1 PATCH TD SCH (10:06)
[2020-06-04] MEDS: ASPIRIN 81 MG ECTAB PO SCH (10:06)
[2020-06-04] MEDS: BusPIRone 15 MG TAB PO SCH ×2 (10:06→13:43)
[2020-06-04] MEDS: ACETAMINOPHEN 325 MG TAB PO PRN (13:43)
[2020-06-04] MEDS: KETOROLAC TROMETHAMINE 15 MG/ML VIAL IV PRN (13:44)
--- NOTE | 2020-06-04 14:27 | Hospitalist Progress Note ---
Date of Service June 04, 2020 Assessment & Plan (1) Intractable back pain: History of multiple back surgery, advanced DJD, admitted with intractable back pain, MRI of lumbar spine: No significant change from the preceding study Evidence of multiple old vertebral body compression fractures with evidence of prior vertebral plasties at T12 and L1 level. Orthopedics consulted, appreciate input from Dr. Arias Patient does not have any significant DJD, no spinal canal narrowing Recommends conservative management with physical therapy, pain control Patient is walking independently, stable to be discharged home today UTI: Urine culture positive for group B Streptococcus No evidence of sepsis, patient is afebrile vital stable, normal white count today Antibiotic changed to p.o. Keflex, complete 3 days of treatment Disposition, Will to be discharged home today Patient has pain management appointment scheduled on 06/07/2020 Requests 2 days of pain medications scripts on discharge to home till her next appointment at pain clinic (2) UTI (urinary tract infection): Admission and Anticipated Discharge Date Admission Date: June 03, 2020 Subjective complains for back pain -better with PO pain meds left shoulder still feels stiff able to walk on the hallway To be discharged home later today, Willing for home physical therapy referral Review of Systems Review of Systems: All systems reviewed & are unremarkable except as noted in HPI & below Physical Exam Physical Exam: GENERAL: uncomfortable, tearful, obese, no respiratory distress SKIN: Normal color, warm HEENT: Bespectacled, [place] palpebral conjunctivae, no ptosis, dry buccal mucosa NECK : Cervical collar in place with some limitation motion CHEST : Decreased breath sounds , no tenderness HEART : RRR, no obvious murmurs ABDOMEN: distention, nontender BACK : Mid and low back tenderness EXTREMITIES : Minimal LE swelling, no LE tenderness, right shoulder tenderness with some limitation in motion NEUROLOGIC : Coherent, no facial asymmetry, no other gross focality Results & Data Results & Data ([facility]) Vital Signs (Past 12 Hours) Vital Signs Temp Pulse Resp BP Pulse Ox 06/04/20 07:14 36.5 C 66 16 124/77 94
--- NOTE | 2020-06-04 14:32 | Discharge Summary ---
Date of Service June 04, 2020 Admission HPI Per Admitting Provider History obtained from patient and records. Medical history significant hypertension, chronic back pain status post surgery, anxiety/mood disorder, prediabetes as per records, ongoing tobacco abuse. Last confinement April 2024 nausea vomiting possible gastroparesis. 3 days ago patient sustained a twisting injury at a local [employer]und[employer]. Subsequent worsening of chronic back pain associated with left shoulder pain. Denies bowel/bladder incontinence. No head trauma. Urinary frequency without fever or chills. Generalized aches. Intractable discomfort at the ER. 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 Discharge Data Allergies Allergy/AdvReac Type Severity Reaction Status Date / Time Penicillins Allergy Unknown SWELLING Verified 06/02/20 22:[address] contrast Allergy Intermediate Unknown Uncoded 06/02/20 22:43 Consultations 06/03/20 01:37 ED Decision to Admit Stat 06/03/20 03:41 Consult Case Management - Discharge Planning Routine Consult Orthopedic Surgery Routine Ordered Studies 06/02/20 21:44 CT cervical spine wo con Urgent CT lumbar spine wo con Urgent CT thoracic spine wo con Urgent 06/03/20 09:51 MR lumbar spine wo con Routine Hospital Course (1) Intractable back pain: History of multiple back surgery, advanced DJD, admitted with intractable back pain, MRI of lumbar spine: No significant change from the preceding study Evidence of multiple old vertebral body compression fractures with evidence of prior vertebral plasties at T12 and L1 level. Orthopedics consulted, appreciate input from Dr. Arias Patient does not have any significant DJD, no spinal canal narrowing Recommends conservative management with physical therapy, pain control Patient is walking independently, stable to be discharged home today UTI: Urine culture positive for group B Streptococcus No evidence of sepsis, patient is afebrile vital stable, normal white count today Antibiotic changed to p.o. Keflex, complete 3 days of treatment Disposition, Will to be discharged home today Patient has pain management appointment scheduled on 06/07/2020 Requests 2 days of pain medications scripts on discharge to home till her next appointment at pain clinic (2) UTI (urinary tract infection): Total Time Total Time Spent Total Time Spent (In Minutes): Proximately 35 minutes Total Time Includes: Examination of the Patient, Discharge Planning and Medication Reconciliation Discharge Plan Discharge Items Patient Disposition: Home - Home Health Services Reason For Visit: Back pain Discharge Diagnosis: Intractable back pain 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 Condition on Discharge: Good Activity: Resume your previous activity Non-emergency contact: Primary Care Provider Call non-emergency contact if: you have any medication questions Follow-up/Referrals: Zion Guzman MD [Primary Care Provider] - 06/06/20 2:00 pm (Date & Time 06/06/2020 2:00 PM Provider Zion Guzman III, MD Department [facility] ) Diet: Heart Healthy Addtl Attending Provider Instructions: Follow-up with family physician in a week Pending Studies at Discharge: No Stand-Alone Forms: My [employer], Smoking Cessation Medications and DC Order Prescriptions: New cephalexin [Keflex] 250 mg capsule 250 mg PO Q6H 3 Days Qty: 12 RF: 0 hydrocodone-acetaminophen [[place]] 7.5-325 mg tablet 1 tab PO Q8H PRN (Reason: pain) Qty: 10 RF: 0 Continued aspirin [Aspirin Low Dose] 81 mg Tablet,Delayed Release (Dr/Ec) 81 mg PO QAM RF: 0 baclofen 10 mg Tablet 10 mg PO TID PRN (Reason: Muscle Spasm/Pain) RF: 0 buspirone 15 mg Tablet 15 mg PO TID RF: 0 cholecalciferol (vitamin D3) 2,000 unit Tablet 2,000 units PO QAM RF: 0 trazodone 50 mg Tablet 100 mg PO HS RF: 0 venlafaxine 225 mg Tablet Extended Release 24hr 225 mg PO QAM RF: 0 atorvastatin 20 mg tablet 20 mg PO QAM RF: 0 lisinopril 40 mg tablet 40 mg PO QAM RF: 0 ondansetron 4 mg tablet,disintegrating 4 mg PO Q8H PRN (Reason: Nausea) RF: 0 fluticasone propionate [Flonase Allergy Relief] 50 mcg/actuation [place],Suspension 2 spray INTRANASAL DAILY PRN (Reason: Congestion) RF: 0 promethazine 25 mg tablet 25 mg PO Q6H PRN (Reason: nausea and vomiting) Qty: 10 RF: 0 hydroxyzine HCl 25 mg Tablet 25 mg PO Q6H PRN (Reason: anxiety) Qty: 30 RF: 0 Discharge Orders: Discharge Order (Routine); Ordered 06/04/20 Ordered By: Niki Dhaliwal Admission Data Admit Date/Time: 06/03/20 02:21 Attending Provider: Niki Dhaliwal Admit Provider: Tima Balbuena Primary Care Provider: Zion Guzman Other Providers: Juan David Arias ; Tima Balbuena ; [facility] Other Interventions: Discharge Summary Assessment (RN) Last Done: 06/04/20 15:06
== END 2020-06-04 16:35 | disposition home health service (06) ==
LOC: ED 19:29 → SUATTDRO 06-03 02:21 → INTOOBSV 06-03 02:21 → 3N 06-03 02:21

== ENCOUNTER 2020-10-24 13:17 | Observation (INO) ==
[2020-10-24] MEDS ORDERED: HYDROmorphone INJ 0.5 MG/0.5 ML SYR IV STA (14:32)
[2020-10-24] MEDS ORDERED: ONDANSETRON INJ 2 MG/ML 2 ML VIAL IV STA ×2 (14:32→20:17)
[2020-10-24] MEDS ORDERED: diphenhydrAMINE 50 MG/ML VIAL IV STA ×2 (14:33→16:59)
[2020-10-24] MEDS ORDERED: PROCHLORPERAZINE 1 ML IV ONE (14:38)
[2020-10-24] MEDS ORDERED: SODIUM CHLORIDE 0.9% 500 ML IV SCH (14:45)
[2020-10-24] MEDS ORDERED: SODIUM CHLORIDE 0.9% 1000ML 1,000 ML IV SCH (14:45)
[2020-10-24 14:58] LABS: Hematocrit (blood only) 42.5 % (37-47); Hemoglobin 14.6 g/dL (12.0-16.0); Mean Corpuscular Hemoglobin 30.7 pg (25-34); Mean Corpuscular Hgb Conc 34.4 g/dL (32-36); Mean Corpuscular Volume 89.5 fL (80-100); Mean Platelet Volume 8.8 fL (7.4-10.4); Platelet Count 376 K/uL (130-400); RDW Standard Deviation 46.3 fL (36.4-46.3); Red Blood Count 4.75 M/uL (4.2-5.4); White Blood Count 29.31 K/uL (4.8-10.8)
[2020-10-24 15:18] LABS: Basophils # (auto) 0.01 K/uL (0-0.2); Immature Granulocytes % (auto) 0.3 %; Lymphocytes # (auto) 2.57 K/uL (1.2-3.4); Lymphocytes % (auto) 8.8 %; Monocytes # (auto) 1.57 K/uL (0.11-0.59); Monocytes % (auto) 5.4 %; Neutrophils # (auto) 25.06 K/uL (1.4-6.5); Neutrophils % (auto) 85.5 %
[2020-10-24 15:19] LABS: Albumin Level 4.2 gm/dl (3.4-5.0); BUN Creatinine Ratio 20.9 (10-20); Calcium 9.4 mg/dl (8.5-10.1); Creatinine Clr Calc Pharmacy 65.2 ml/min; Est GFR (African American) 76.2; Est GFR (Non-African American) 65.7; Potassium 3.9 mmol/L (3.5-5.1)
[2020-10-24 15:22] LABS: Bilirubin,Total 0.4 mg/dl (0.2-1); Globulin 4.2 gm/dl (2.5-4.0); Total Protein 8.4 gm/dl (6.4-8.2)
[2020-10-24 16:12] LABS: Appearance Urine Clear (Clear); Bacteria Urine Automated Negative (Negative); Bilirubin Urine Negative (Negative); Blood Urine 1+ (Negative); Color Urine Yellow; Epithelial Cell Urine Auto 20-30 /lpf (0-5); Glucose Urine UA Negative (Negative); Ketones Urine Trace (Negative); Leukocyte Esterase Urine Negative (Negative); Nitrite Urine Negative (Negative); Protein Urine 1+ (Negative); Specific Gravity Urine 1.031 (1.000-1.030); Urobilinogen Urine Negative (Negative)
[2020-10-24] MEDS ORDERED: PROCHLORPERAZINE 5 MG in SYRINGE 4 ML IV ONE (16:59)
[2020-10-24] MEDS ORDERED: PROCHLORPERAZINE 5 MG/ML 2 ML VIAL ONE (17:08)
[2020-10-24] MEDS ORDERED: IOVERSOL 100ml IV ONE (17:39)
--- NOTE | 2020-10-24 18:13 | CT Scan Report ---
CT SCAN OF THE ABDOMEN AND PELVIS WITH IV CONTRAST CLINICAL HISTORY: Vomiting and diarrhea. COMPARISON STUDY: Abdominal CT dated 04/10/2020. TECHNIQUE: Following the IV administration of 95 cc of Optiray 320, CT scan of the abdomen and pelvi s is performed from the lung bases to the proximal femora. Images are reviewed in the axial, sagittal , and coronal planes. IV contrast was administered without complication. A dose lowering technique wa s utilized adhering to the principles of ALARA. CT DOSE: 1056.29 mGy.cm FINDINGS: Lung bases: The heart is normal in size and without pericardial effusion. The coronary arteries are d ensely calcified. The lung bases are clear noting bibasilar scarring/atelectasis. Liver: The contrast-enhanced liver is normal in size, contour, and attenuation. There is no intrahepa tic biliary ductal dilatation. The hepatic veins and portal veins are patent. Gallbladder: Unremarkable. Spleen: Normal in size and attenuation. Pancreas: Moderately atrophic and grossly unremarkable. Adrenal glands: Unremarkable. Kidneys: The contrast enhanced kidneys demonstrate mild cortical atrophy and are without hydronephros is. The kidneys enhance symmetrically. A nonobstructing calculus is noted in the left kidney. A subce ntimeter cortical hypodensity in the left upper pole likely represents a cyst but is too small for de finitive characterization. Abdominal vasculature: The abdominal aorta is normal in course and caliber noting advanced atheroscle rotic calcification. Bowel: There is no bowel obstruction. There are scattered colonic diverticula without CT evidence of acute diverticulitis. The appendix is not identified and reported surgically absent. Peritoneum: There is no intraperitoneal free air or abdominal ascites. Lymphadenopathy: None. Pelvic viscera: The bladder is normal as imaged. The uterus is surgically absent. No adnexal lesion i s seen. Skeletal structures: The skeletal structures are osteopenic. There are chronic compression deformitie s of T12 and L1 with retropulsed fragments and evidence of previous vertebroplasty. There are also mi ld chronic superior end plate compression deformities of L2, L4, and L5. Postoperative change is seen throughout the lumbar spine. No lytic or blastic lesions are seen. IMPRESSION: There are no acute infectious or inflammatory findings in the abdomen or pelvis. ACT 112: Negative or not required by law. Electronically signed by: Nikolas Ricks M.D. 10/24/2020 6:11 PM
[2020-10-24] MEDS ORDERED: FAMOTIDINE 20MG/5ML IV PUSH IV STA (20:17)
[2020-10-24 21:11] LABS: Hematocrit (blood only) 40.6 % (37-47); Hemoglobin 13.3 g/dL (12.0-16.0); Mean Corpuscular Hemoglobin 29.4 pg (25-34); Mean Corpuscular Hgb Conc 32.8 g/dL (32-36); Mean Corpuscular Volume 89.6 fL (80-100); Mean Platelet Volume 9.1 fL (7.4-10.4); Platelet Count 319 K/uL (130-400); RDW Standard Deviation 46.2 fL (36.4-46.3); Red Blood Count 4.53 M/uL (4.2-5.4); White Blood Count 21.36 K/uL (4.8-10.8)
[2020-10-24] MEDS ORDERED: LIDOCAINE 5% 1 PATCH TD PRN (22:13)
[2020-10-24] MEDS ORDERED: FLUTICASONE PROPIONATE NA SPR 16 GM BTL PRN (22:13)
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
[2020-10-24] MEDS: HYDROmorphone INJ 0.5 MG/0.5 ML SYR IV PRN (22:41)
[2020-10-24] MEDS: SODIUM CHLORIDE 0.9% 1000ML 1,000 ML IV SCH (22:41)
[2020-10-24] MEDS ORDERED: hydrALAZINE HCL 20 MG/ML VIAL IV PRN (22:53)
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
[2020-10-25] MEDS ORDERED: ONDANSETRON INJ 2 MG/ML 2 ML VIAL ONE (02:31)
[2020-10-25] MEDS: HYDROmorphone INJ 0.5 MG/0.5 ML SYR IV PRN ×4 (02:54→21:45)
[2020-10-25 07:26] LABS: Basophils # (auto) 0.01 K/uL (0-0.2); Basophils % (auto) 0.1 %; Eosinophils # (auto) 0.02 K/uL (0-0.5); Eosinophils % (auto) 0.1 %; Hematocrit (blood only) 36.7 % (37-47); Hemoglobin 12.1 g/dL (12.0-16.0); Immature Granulocytes # (auto) 0.05 K/uL (0.00-0.02); Immature Granulocytes % (auto) 0.3 %; Lymphocytes # (auto) 3.48 K/uL (1.2-3.4); Lymphocytes % (auto) 18.6 %; Mean Corpuscular Hemoglobin 29.9 pg (25-34); Mean Corpuscular Volume 90.6 fL (80-100); Mean Platelet Volume 8.9 fL (7.4-10.4); Monocytes # (auto) 1.28 K/uL (0.11-0.59); Monocytes % (auto) 6.8 %; Neutrophils # (auto) 13.89 K/uL (1.4-6.5); Neutrophils % (auto) 74.1 %; Platelet Count 305 K/uL (130-400); RDW Coefficient of Variation 14.1 % (11.5-14.5); RDW Standard Deviation 46.9 fL (36.4-46.3); Red Blood Count 4.05 M/uL (4.2-5.4); White Blood Count 18.73 K/uL (4.8-10.8)
[2020-10-25 07:49] LABS: Estimated Average Glucose 120 mg/dl; Hemoglobin A1C 5.8 % (4.5-5.6)
[2020-10-25 08:05] LABS: BUN Creatinine Ratio 28.9 (10-20); Calcium 8.5 mg/dl (8.5-10.1); Creatinine Clr Calc Pharmacy 99.4 ml/min; Est GFR (African American) 110.1; Magnesium 2.2 mg/dl (1.8-2.4); Potassium 3.7 mmol/L (3.5-5.1)
[2020-10-25] MEDS: HYDROCODONE/ACETAMINOPHEN 7.5/325MG TAB PO PRN ×2 (08:08→19:16)
[2020-10-25] MEDS: ONDANSETRON INJ 2 MG/ML 2 ML VIAL IV PRN ×2 (08:08→19:16)
[2020-10-25] MEDS: SODIUM CHLORIDE 0.9% 1000ML 1,000 ML IV SCH ×2 (08:32→18:34)
[2020-10-25] MEDS: CHOLECALCIFEROL 1,000 UNITS 25 MCG TAB PO SCH (08:33)
[2020-10-25] MEDS: busPIRone 15 MG TAB PO SCH ×3 (08:33→20:43)
[2020-10-25] MEDS: lisinopril 40 MG TAB PO SCH (08:33)
[2020-10-25] MEDS: ASPIRIN 81 MG ECTAB PO SCH (08:33)
[2020-10-25] MEDS: MELOXICAM 7.5 MG TAB PO SCH (08:34)
[2020-10-25] MEDS: ATORVASTATIN 20 MG TAB PO SCH (08:34)
[2020-10-25] MEDS: VENLAFAXINE HCL XR 75 MG CAPXR PO SCH (08:34)
[2020-10-25] MEDS ORDERED: LORazepam 2 MG/4 ML VIAL IV PRN (09:45)
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
--- NOTE | 2020-10-25 12:19 | Electrocardiogram Report ---
Test Reason : Blood Pressure : / mmHG Vent. Rate : 059 BPM Atrial Rate : 059 BPM P-R Int : 140 ms QRS Dur : 092 ms QT Int : 456 ms P-R-T Axes : 068 055 068 degrees QTc Int : 451 ms Sinus bradycardia Otherwise normal ECG When compared with ECG of 03-JUN-2020 00:07, Vent. rate has decreased BY 50 BPM Confirmed by Simon Phillips ([id number]) on 10/25/2020 12:19:27 PM Referred By: REFERRED SELF Confirmed By:Simon Phillips
--- NOTE | 2020-10-25 15:05 | Hospitalist Progress Note ---
Date of Service October 25, 2020 Assessment & Plan (1) Intractable back pain: This is a 65-year-old female who presents with off and on chronic back pain and nausea and vomiting. 1. Odayh-tf-nlywzba back pain: The patient was started on Medrol Dosepak day prior admission, on admission she was having nausea, vomiting, abdominal discomfort, hold Medrol Dosepak. Continue her home pain medications, also placed on IV Dilaudid p.r.n. PT/OT Consult orthopedics. The patient was planned for spinal stimulator, but it was held because of the ongoing pandemic. Seen by ortho spine - MRI of thoracic/ lumbar region ordered 2. Abdominal pain and nausea and vomiting: CT of the abdomen and pelvis unremarkable, possibly from steroid use. We will place on IV Pepcid. Keep her on clear liquid diet for now. Gentle fluids and monitor. 3. Leukocytosis: Could be reactive from her nausea and vomiting and also could be from the steroids. No signs of infection. We will follow the labs. WBC trending down. 4. History of depression and anxiety: Continue buspirone, venlafaxine, and trazodone. 5. Hypertension. Continue her lisinopril. 6. Chronic pain: Continue her [place], meloxicam, and lidocaine patch and baclofen p.r.n. 7. Hyperlipidemia: Continue statin. 8. Prediabetes: We will follow the HbA1c levels. DVT prophylaxis: SCDs. Admission and Anticipated Discharge Date Admission Date: October 24, 2020 Subjective Pt seen in follow up of chronic back pain. Seen by Dr. Arias, MRI ordered for further eval. Currently laying in bed, in NAD, pain better controlled now with medications. MRI - pending. Review of Systems Review of Systems: All systems reviewed & are unremarkable except as noted in HPI & below Constitutional: no fever and no chills Respiratory: no cough and no dyspnea Cardiovascular: no chest pain and no palpitations Gastrointestinal: no abdominal pain, no nausea and no vomiting Genitourinary: no dysuria Physical Exam Physical Exam: GENERAL: obese female, laying in bed, not in acute distress. HEENT: NC/AT, PERRL, Oral mucosa moist. NECK: No neck masses seen. CARDIOVASCULAR: S1, S2 heard. Regular rate and rhythm, no murmur, no gallop. RESPIRATORY SYSTEM: Normal AP diameter. No accessory muscle use. No wheezing, no crackles. ABDOMEN: Soft, bowel sounds present, obese. Nontender. No rigidity, no guarding. No distention. CENTRAL NERVOUS SYSTEM: alert and oriented x3, speech fluent, no facial asymmetry, Cranial nerves II-XII are grossly intact. Moves extremities. EXTREMITIES: No edema, no erythema. MUSCULOSKELETAL: Straight leg test negative. Results & Data Results & Data ([facility]) Vital Signs (Past 12 Hours) Vital Signs Temp Pulse Resp BP Pulse Ox 10/25/20 07:59 37.3 C 69 19 129/70 92 Laboratory Results 10/25/20 10/25/20 10/25/20 Range/Units 06:36 06:36 06:36 WBC 18.73 H (4.8-10.8) K/uL RBC 4.05 L (4.2-5.4) M/uL Hgb 12.1 (12.0-16.0) g/dL Hct 36.7 L (37-47) % MCV 90.6 (80-100) fL MCH 29.9 (25-34) pg MCHC 33.0 (32-36) g/dL RDW Std Deviation 46.9 H (36.4-46.3) fL RDW Coeff of Jimi 14.1 (11.5-14.5) % Plt Count 305 (130-400) K/uL MPV 8.9 (7.4-10.4) fL Immature Gran % (Auto) 0.3 % Neut % (Auto) 74.1 % Lymph % (Auto) 18.6 % [place] % (Auto) 6.8 % Eos % (Auto) 0.1 % Baso % (Auto) 0.1 % Neut # (Auto) 13.89 H (1.4-6.5) K/uL Lymph # (Auto) 3.48 H (1.2-3.4) K/uL [place] # (Auto) 1.28 H (0.11-0.59) K/uL Eos # (Auto) 0.02 (0-0.5) K/uL Baso # (Auto) 0.01 (0-0.2) K/uL Immature Gran # (Auto) 0.05 H (0.00-0.02) K/uL Sodium 137 (136-145) mmol/L Potassium 3.7 (3.5-5.1) mmol/L Chloride 106 (98-107) mmol/L Carbon Dioxide 27 (21-32) mmol/L Anion Gap 5.0 (3-11) BUN 17 (7-18) mg/dl Creatinine 0.60 D (0.6-1.2) mg/dl Est Cr Clr Drug Dosing 99.4 ml/min Est GFR ( Amer) 110.1 Est GFR (Non-Af Amer) 95.0 BUN/Creatinine Ratio 28.9 H (10-20) Glucose 93 (70-99) mg/dl Estimat Average Glucose 120 mg/dl Hemoglobin A1c 5.8 H (4.5-5.6) % Calcium 8.5 (8.5-10.1) mg/dl Magnesium 2.2 (1.8-2.4) mg/dl Total Bilirubin (0.2-1) mg/dl AST (15-37) U/L ALT (12-78) U/L Alkaline Phosphatase (45-117) U/L Total Protein (6.4-8.2) gm/dl Albumin (3.4-5.0) gm/dl Globulin (2.5-4.0) gm/dl Albumin/Globulin Ratio (0.9-2) Lipase (73-393) U/L Urine Color Urine Appearance (Clear) Urine pH (4.5-7.5) Ur Specific [place] (1.000-1.030) Urine Protein (Negative) Urine Glucose (UA) (Negative) Urine Ketones (Negative) Urine Blood (Negative) Urine Nitrite (Negative) Urine Bilirubin (Negative) Urine Urobilinogen (Negative) Ur Leukocyte Esterase (Negative) Urine WBC (Auto) (0-5) /hpf Urine RBC (Auto) (0-4) /hpf U Hyaline Cast (Auto) (0-5) /lpf U Epithel Cells (Auto) (0-5) /lpf Urine Bacteria (Auto) (Negative) SARS-CoV-2, RNA, NAAT (NEGATIVE) 10/24/20 10/24/20 10/24/20 Range/Units 20:55 15:44 14:52 WBC 21.36 H (4.8-10.8) K/uL RBC 4.53 (4.2-5.4) M/uL Hgb 13.3 (12.0-16.0) g/dL Hct 40.6 (37-47) % MCV 89.6 (80-100) fL MCH 29.4 (25-34) pg MCHC 32.8 (32-36) g/dL RDW Std Deviation 46.2 (36.4-46.3) fL RDW Coeff of Jimi 14.0 (11.5-14.5) % Plt Count 319 (130-400) K/uL MPV 9.1 (7.4-10.4) fL Immature Gran % (Auto) % Neut % (Auto) % Lymph % (Auto) % [place] % (Auto) % Eos % (Auto) % Baso % (Auto) % Neut # (Auto) (1.4-6.5) K/uL Lymph # (Auto) (1.2-3.4) K/uL [place] # (Auto) (0.11-0.59) K/uL Eos # (Auto) (0-0.5) K/uL Baso # (Auto) (0-0.2) K/uL Immature Gran # (Auto) (0.00-0.02) K/uL Sodium (136-145) mmol/L Potassium (3.5-5.1) mmol/L Chloride (98-107) mmol/L Carbon Dioxide (21-32) mmol/L Anion Gap (3-11) BUN (7-18) mg/dl Creatinine (0.6-1.2) mg/dl Est Cr Clr Drug Dosing ml/min Est GFR ( Amer) Est GFR (Non-Af Amer) BUN/Creatinine Ratio (10-20) Glucose (70-99) mg/dl Estimat Average Glucose mg/dl Hemoglobin A1c (4.5-5.6) % Calcium (8.5-10.1) mg/dl Magnesium (1.8-2.4) mg/dl Total Bilirubin (0.2-1) mg/dl AST (15-37) U/L ALT (12-78) U/L Alkaline Phosphatase (45-117) U/L Total Protein (6.4-8.2) gm/dl Albumin (3.4-5.0) gm/dl Globulin (2.5-4.0) gm/dl Albumin/Globulin Ratio (0.9-2) Lipase (73-393) U/L Urine Color Yellow Urine Appearance Clear (Clear) Urine pH 5.0 (4.5-7.5) Ur Specific [place] 1.031 H (1.000-1.030) Urine Protein 1+ H (Negative) Urine Glucose (UA) Negative (Negative) Urine Ketones Trace H (Negative) Urine Blood 1+ H (Negative) Urine Nitrite Negative (Negative) Urine Bilirubin Negative (Negative) Urine Urobilinogen Negative (Negative) Ur Leukocyte Esterase Negative (Negative) Urine WBC (Auto) 1-5 (0-5) /hpf Urine RBC (Auto) 5-10 H (0-4) /hpf U Hyaline Cast (Auto) 5-10 H (0-5) /lpf U Epithel Cells (Auto) 20-30 H (0-5) /lpf Urine Bacteria (Auto) Negative (Negative) SARS-CoV-2, RNA, NAAT NEGATIVE (NEGATIVE) 10/24/20 10/24/20 Range/Units 14:48 14:48 WBC (4.8-10.8) K/uL RBC (4.2-5.4) M/uL Hgb (12.0-16.0) g/dL Hct (37-47) % MCV (80-100) fL MCH (25-34) pg MCHC (32-36) g/dL RDW Std Deviation (36.4-46.3) fL RDW Coeff of Jimi (11.5-14.5) % Plt Count (130-400) K/uL MPV (7.4-10.4) fL Immature Gran % (Auto) 0.3 % Neut % (Auto) 85.5 % Lymph % (Auto) 8.8 % [place] % (Auto) 5.4 % Eos % (Auto) 0.0 % Baso % (Auto) 0.0 % Neut # (Auto) 25.06 H (1.4-6.5) K/uL Lymph # (Auto) 2.57 (1.2-3.4) K/uL [place] # (Auto) 1.57 H (0.11-0.59) K/uL Eos # (Auto) 0.00 (0-0.5) K/uL Baso # (Auto) 0.01 (0-0.2) K/uL Immature Gran # (Auto) 0.10 H (0.00-0.02) K/uL Sodium 139 (136-145) mmol/L Potassium 3.9 (3.5-5.1) mmol/L Chloride 107 (98-107) mmol/L Carbon Dioxide 27 (21-32) mmol/L Anion Gap 5.0 (3-11) BUN 19 H (7-18) mg/dl Creatinine 0.91 (0.6-1.2) mg/dl Est Cr Clr Drug Dosing 65.2 ml/min Est GFR ( Amer) 76.2 Est GFR (Non-Af Amer) 65.7 BUN/Creatinine Ratio 20.9 H (10-20) Glucose 143 H (70-99) mg/dl Estimat Average Glucose mg/dl Hemoglobin A1c (4.5-5.6) % Calcium 9.4 (8.5-10.1) mg/dl Magnesium (1.8-2.4) mg/dl Total Bilirubin 0.4 (0.2-1) mg/dl AST 13 L (15-37) U/L ALT 24 (12-78) U/L Alkaline Phosphatase 81 (45-117) U/L Total Protein 8.4 H (6.4-8.2) gm/dl Albumin 4.2 (3.4-5.0) gm/dl Globulin 4.2 H (2.5-4.0) gm/dl Albumin/Globulin Ratio 1.0 (0.9-2) Lipase 70 L (73-393) U/L Urine Color Urine Appearance (Clear) Urine pH (4.5-7.5) Ur Specific [place] (1.000-1.030) Urine Protein (Negative) Urine Glucose (UA) (Negative) Urine Ketones (Negative) Urine Blood (Negative) Urine Nitrite (Negative) Urine Bilirubin (Negative) Urine Urobilinogen (Negative) Ur Leukocyte Esterase (Negative) Urine WBC (Auto) (0-5) /hpf Urine RBC (Auto) (0-4) /hpf U Hyaline Cast (Auto) (0-5) /lpf U Epithel Cells (Auto) (0-5) /lpf Urine Bacteria (Auto) (Negative) SARS-CoV-2, RNA, NAAT (NEGATIVE) Medications Administered Current Inpatient Medications Hydrocodone Bitart/Acetaminophen (Hydrocodone/Acetaminophen 7.5/325mg Tab) 1 tab PO Q8H PRN PRN Reason: pain Stop: 11/07/20 22:12 Last Admin: 10/25/20 08:08 Dose: 1 tab Documented by: Aspirin (Aspirin 81 Mg Ectab) 81 mg PO QAM [facility] Stop: 11/24/20 08:59 Last Admin: 10/25/20 08:33 Dose: 81 mg Documented by: Atorvastatin Calcium (Atorvastatin 20 Mg Tab) 20 mg PO QAM [facility] Stop: 11/24/20 08:59 Last Admin: 10/25/20 08:34 Dose: 20 mg Documented by: Baclofen (Baclofen 10 Mg Tab) 10 mg PO TID PRN PRN Reason: Muscle Spasm/Pain Stop: 11/23/20 22:12 Buspirone HCl (Buspirone 15 Mg Tab) 15 mg PO TID [facility] Stop: 11/24/20 08:59 Last Admin: 10/25/20 13:43 Dose: 15 mg Documented by: Fluticasone Propionate (Fluticasone Propionate Na Spr 16 Gm Btl) 2 sprays NA DAILY PRN PRN Reason: Congestion Stop: 11/23/20 22:12 Hydralazine HCl (Hydralazine Hcl 20 Mg/Ml Vial) 5 mg IV Q6H PRN PRN Reason: Hypertension Stop: 11/23/20 22:52 Last Admin: 10/25/20 00:03 Dose: 5 mg Documented by: Hydromorphone HCl (Hydromorphone Inj 0.5 Mg/0.5 Ml Syr) 0.5 mg IV Q3H PRN PRN Reason: Pain Stop: 11/07/20 22:12 Last Admin: 10/25/20 14:50 Dose: 0.5 mg Documented by: Hydroxyzine HCl (Hydroxyzine Hcl 25 Mg Tab) 25 mg PO Q6H PRN PRN Reason: anxiety Stop: 11/23/20 22:12 Sodium Chloride (Nss 1000ml) 1,000 mls @ 100 mls/hr IV .Q10H [facility] Stop: 11/23/20 22:12 Last Infusion: 10/25/20 13:44 Dose: 100 mls/hr Documented by: Lidocaine (Lidocaine 5% 1 Patch) 1 patch TD DAILY PRN PRN Reason: pain Stop: 11/23/20 22:12 Lisinopril (Lisinopril 40 Mg Tab) 40 mg PO QAM [facility] Stop: 11/24/20 08:59 Last Admin: 10/25/20 08:33 Dose: 40 mg Documented by: Meloxicam (Meloxicam 7.5 Mg Tab) 15 mg PO DAILY [facility] Stop: 11/24/20 08:59 Last Admin: 10/25/20 08:34 Dose: 15 mg Documented by: Miscellaneous (Remove Lidoderm Patch) 1 ea N/A DAILY@2100 [facility] Stop: 11/24/20 20:59 Ondansetron HCl (Ondansetron Inj 2 Mg/Ml 2 Ml Vial) 4 mg IV Q6H PRN PRN Reason: Nausea Stop: 11/24/20 02:19 Last Admin: 10/25/20 08:08 Dose: 4 mg Documented by: Trazodone HCl (Trazodone Hcl 100 Mg Tab) 100 mg PO [facility] Stop: 11/24/20 20:59 Venlafaxine HCl (Venlafaxine Hcl Xr 75 Mg Capxr) [facility] [place] Stop: 11/24/20 08:59 Last Admin: 10/25/20 08:34 Dose: 225 mg Documented by: Vitamin D (Cholecalciferol 1,000 Units 25 Mcg Tab) 2,000 units [facility] [place] Stop: 11/24/20 08:59 Last Admin: 10/25/20 08:33 Dose: 2,000 units Documented by:
[2020-10-25] MEDS: BACLOFEN 10 MG TAB PO PRN (15:51)
[2020-10-25] MEDS: hydrOXYzine HCl 25 MG TAB PO PRN (17:55)
[2020-10-25] MEDS: NICOTINE 14 MG/24 HR PATCH TD SCH (20:42)
[2020-10-25] MEDS: traZODone HCL 100 MG TAB PO SCH (20:43)
[2020-10-26] MEDS: hydrOXYzine HCl 25 MG TAB PO PRN (00:25)
[2020-10-26] MEDS ORDERED: diphenhydrAMINE Capsule 25 MG CAP PO PRN (01:02)
[2020-10-26] MEDS ORDERED: ACETAMINOPHEN 325 MG TAB PO PRN (01:02)
[2020-10-26] MEDS ORDERED: ACETAMINOPHEN 325 MG TAB ONE ×2 (01:05→01:06)
[2020-10-26] MEDS: SODIUM CHLORIDE 0.9% 1000ML 1,000 ML IV SCH ×3 (04:39→23:43)
[2020-10-26 06:57] LABS: Hematocrit (blood only) 37.2 % (37-47); Hemoglobin 12.2 g/dL (12.0-16.0); Mean Corpuscular Hgb Conc 32.8 g/dL (32-36); Mean Corpuscular Volume 91.4 fL (80-100); Mean Platelet Volume 8.7 fL (7.4-10.4); Platelet Count 254 K/uL (130-400); RDW Coefficient of Variation 13.9 % (11.5-14.5); RDW Standard Deviation 46.9 fL (36.4-46.3); Red Blood Count 4.07 M/uL (4.2-5.4); White Blood Count 9.59 K/uL (4.8-10.8)
[2020-10-26 07:46] LABS: BUN Creatinine Ratio 18.1 (10-20); Calcium 7.7 mg/dl (8.5-10.1); Creatinine Clr Calc Pharmacy 102.8 ml/min; Est GFR (African American) 111.3; Est GFR (Non-African American) 96.1; Magnesium 2.1 mg/dl (1.8-2.4); Phosphorus 2.9 mg/dl (2.5-4.9); Potassium 3.6 mmol/L (3.5-5.1)
--- NOTE | 2020-10-26 07:58 | Hospitalist Progress Note ---
Date of Service October 26, 2020 Assessment & Plan (1) Intractable back pain: This is a 65-year-old female who presents with off and on chronic back pain and nausea and vomiting. 1. Dtyxf-fc-ddheunu back pain: The patient was started on Medrol Dosepak day prior admission, on admission she was having nausea, vomiting, abdominal discomfort, hold Medrol Dosepak. Continue her home pain medications, also placed on IV Dilaudid p.r.n. PT/OT Consult orthopedics. The patient was planned for spinal stimulator, but it was held because of the ongoing pandemic. Seen by ortho spine - MRI of thoracic/ lumbar region ordered 2. Abdominal pain and nausea and vomiting: CT of the abdomen and pelvis unremarkable, possibly from steroid use. Placed on IV Pepcid. Clear liquid diet ordered. Gentle fluids and monitor. Pt now feels better and would like to try more substantial diet - will advance diet 3. Leukocytosis: Likely eactive from her nausea and vomiting and also could be from the steroids. No signs of infection. WBC trended down, now normalized at 9 thousand. Resolved 4. History of depression and anxiety: Continue buspirone, venlafaxine, and trazodone. 5. Hypertension. Continue her lisinopril. 6. Chronic pain: Continue her [place], meloxicam, and lidocaine patch and baclofen p.r.n. IV dilaudid ordered prn for breakthrough pain 7. Hyperlipidemia: Continue statin. 8. Prediabetes: Current HbA1c 5.8%, follow up as outpt. DVT prophylaxis: SCDs. Admission and Anticipated Discharge Date Admission Date: October 24, 2020 Subjective Pt seen in follow up of chronic back pain. Seen by Dr. Arias, MRI ordered for further eval. Currently laying in bed, in NAD, pain better controlled now with medications. MRI - pending. Review of Systems Review of Systems: All systems reviewed & are unremarkable except as noted in HPI & below Constitutional: no fever and no chills Respiratory: no cough and no dyspnea Cardiovascular: no chest pain and no palpitations Gastrointestinal: no abdominal pain, no nausea and no vomiting Genitourinary: no dysuria Physical Exam Physical Exam: GENERAL: obese female, laying in bed, not in acute distress. HEENT: NC/AT, PERRL, Oral mucosa moist. NECK: No neck masses seen. CARDIOVASCULAR: S1, S2 heard. Regular rate and rhythm, no murmur, no gallop. RESPIRATORY SYSTEM: Normal AP diameter. No accessory muscle use. No wheezing, no crackles. ABDOMEN: Soft, bowel sounds present, obese. Nontender. No rigidity, no guarding. No distention. NEURO: alert and oriented x3, speech fluent, no facial asymmetry, Cranial nerves II-XII are grossly intact. Moves extremities. EXTREMITIES: No edema, no erythema. MUSCULOSKELETAL: Moves extremities, reports pain pain when moving LEs. Results & Data Results & Data ([facility]) Vital Signs (Past 12 Hours) Vital Signs Temp Pulse Resp BP Pulse Ox 10/26/20 07:37 36.4 C L 62 16 158/80 H 96 10/25/20 23:55 36.4 C L 61 20 129/73 96 Laboratory Results 10/26/20 10/26/20 10/25/20 Range/Units 06:38 06:38 06:36 WBC 9.59 (4.8-10.8) K/uL RBC 4.07 L (4.2-5.4) M/uL Hgb 12.2 (12.0-16.0) g/dL Hct 37.2 (37-47) % MCV 91.4 (80-100) fL MCH 30.0 (25-34) pg MCHC 32.8 (32-36) g/dL RDW Std Deviation 46.9 H (36.4-46.3) fL RDW Coeff of Jimi 13.9 (11.5-14.5) % Plt Count 254 (130-400) K/uL MPV 8.7 (7.4-10.4) fL Sodium 142 137 (136-145) mmol/L Potassium 3.6 3.7 (3.5-5.1) mmol/L Chloride 109 H 106 (98-107) mmol/L Carbon Dioxide 26 27 (21-32) mmol/L Anion Gap 7.0 5.0 (3-11) BUN 11 17 (7-18) mg/dl Creatinine 0.58 L 0.60 D (0.6-1.2) mg/dl Est Cr Clr Drug Dosing 102.8 99.4 ml/min Est GFR ( Amer) 111.3 110.1 Est GFR (Non-Af Amer) 96.1 95.0 BUN/Creatinine Ratio 18.1 28.9 H (10-20) Glucose 78 93 (70-99) mg/dl Calcium 7.7 L 8.5 (8.5-10.1) mg/dl Phosphorus 2.9 (2.5-4.9) mg/dl Magnesium 2.1 2.2 (1.8-2.4) mg/dl Medications Administered Current Inpatient Medications Acetaminophen (Acetaminophen 325 Mg Tab) 650 mg PO Q4H PRN PRN Reason: Pain Stop: 11/25/20 01:01 Hydrocodone Bitart/Acetaminophen (Hydrocodone/Acetaminophen 7.5/325mg Tab) 1 tab PO Q8H PRN PRN Reason: pain Stop: 11/07/20 22:12 Last Admin: 10/25/20 19:16 Dose: 1 tab Documented by: Aspirin (Aspirin 81 Mg Ectab) 81 mg PO [facility] Stop: 11/24/20 08:59 Last Admin: 10/25/20 08:33 Dose: 81 mg Documented by: Atorvastatin Calcium (Atorvastatin 20 Mg Tab) 20 mg PO [facility] Stop: 11/24/20 08:59 Last Admin: 10/25/20 08:34 Dose: 20 mg Documented by: Baclofen (Baclofen 10 Mg Tab) 10 mg PO TID PRN PRN Reason: Muscle Spasm/Pain Stop: 11/23/20 22:12 Last Admin: 10/25/20 15:51 Dose: 10 mg Documented by: Buspirone HCl (Buspirone 15 Mg Tab) 15 mg PO TID [facility] Stop: 11/24/20 08:59 Last Admin: 10/25/20 20:43 Dose: 15 mg Documented by: Diphenhydramine HCl (Diphenhydramine Capsule 25 Mg Cap) 25 mg PO HS PRN PRN Reason: Anxiety/Insomnia Stop: 11/25/20 01:01 Fluticasone Propionate (Fluticasone Propionate Na Spr 16 Gm Btl) 2 sprays NA DAILY PRN PRN Reason: Congestion Stop: 11/23/20 22:12 Hydralazine HCl (Hydralazine Hcl 20 Mg/Ml Vial) 5 mg IV Q6H PRN PRN Reason: Hypertension Stop: 11/23/20 22:52 Last Admin: 10/25/20 00:03 Dose: 5 mg Documented by: Hydromorphone HCl (Hydromorphone Inj 0.5 Mg/0.5 Ml Syr) 0.5 mg IV Q3H PRN PRN Reason: Pain Stop: 11/07/20 22:12 Last Admin: 10/25/20 21:45 Dose: 0.5 mg Documented by: Hydroxyzine HCl (Hydroxyzine Hcl 25 Mg Tab) 25 mg PO Q6H PRN PRN Reason: anxiety Stop: 11/23/20 22:12 Last Admin: 10/26/20 00:25 Dose: 25 mg Documented by: Sodium Chloride (Nss 1000ml) 1,000 mls @ 100 mls/hr IV .Q10H [facility] Stop: 11/23/20 22:12 Last Admin: 10/26/20 04:39 Dose: 100 mls/hr Documented by: Lidocaine (Lidocaine 5% 1 Patch) 1 patch TD DAILY PRN PRN Reason: pain Stop: 11/23/20 22:12 Lisinopril (Lisinopril 40 Mg Tab) 40 mg PO QAM [facility] Stop: 11/24/20 08:59 Last Admin: 10/25/20 08:33 Dose: 40 mg Documented by: Meloxicam (Meloxicam 7.5 Mg Tab) 15 mg PO DAILY [facility] Stop: 11/24/20 08:59 Last Admin: 10/25/20 08:34 Dose: 15 mg Documented by: Miscellaneous (Remove Lidoderm Patch) 1 ea N/A DAILY@2100 [facility] Stop: 11/24/20 20:59 Last Admin: 10/25/20 20:44 Dose: Not Given Documented by: Miscellaneous (Remove Nicoderm Patch) 1 ea N/A DAILY@0859 [facility] Stop: 11/25/20 08:58 Nicotine (Nicotine 14 Mg/24 Hr Patch) 14 mg TD DAILY [facility] Stop: 11/24/20 19:44 Last Admin: 10/25/20 20:42 Dose: 14 mg Documented by: Ondansetron HCl (Ondansetron Inj 2 Mg/Ml 2 Ml Vial) 4 mg IV Q6H PRN PRN Reason: Nausea Stop: 11/24/20 02:19 Last Admin: 10/25/20 19:16 Dose: 4 mg Documented by: Potassium Chloride (Potassium Chloride Crtab 20 Meq Tabcr) 20 meq PO NOW STA Stop: 10/26/20 07:57 Trazodone HCl (Trazodone Hcl 100 Mg Tab) 100 mg PO [facility] Stop: 11/24/20 20:59 Last Admin: 10/25/20 20:43 Dose: 100 mg Documented by: Venlafaxine HCl (Venlafaxine Hcl Xr 75 Mg Capxr) 225 mg PO [facility] Stop: 11/24/20 08:59 Last Admin: 10/25/20 08:34 Dose: 225 mg Documented by: Vitamin D (Cholecalciferol 1,000 Units 25 Mcg Tab) 2,000 units PO [facility] Stop: 11/24/20 08:59 Last Admin: 10/25/20 08:33 Dose: 2,000 units Documented by:
[2020-10-26] MEDS: NICOTINE 14 MG/24 HR PATCH TD SCH (08:07)
[2020-10-26] MEDS: busPIRone 15 MG TAB PO SCH ×3 (08:08→19:18)
[2020-10-26] MEDS: BACLOFEN 10 MG TAB PO PRN ×2 (08:09→19:19)
[2020-10-26] MEDS: ASPIRIN 81 MG ECTAB PO SCH (08:09)
[2020-10-26] MEDS: ATORVASTATIN 20 MG TAB PO SCH (08:09)
[2020-10-26] MEDS: CHOLECALCIFEROL 1,000 UNITS 25 MCG TAB PO SCH (08:10)
[2020-10-26] MEDS: lisinopril 40 MG TAB PO SCH (08:10)
[2020-10-26] MEDS: VENLAFAXINE HCL XR 75 MG CAPXR PO SCH (08:10)
[2020-10-26] MEDS: MELOXICAM 7.5 MG TAB PO SCH (08:10)
[2020-10-26] MEDS: HYDROCODONE/ACETAMINOPHEN 7.5/325MG TAB PO PRN ×2 (08:20→19:18)
[2020-10-26] MEDS: ONDANSETRON INJ 2 MG/ML 2 ML VIAL IV PRN ×2 (08:21→21:49)
[2020-10-26] MEDS ORDERED: POTASSIUM CHLORIDE CRTAB 20 MEQ TABCR PO ONE (08:30)
[2020-10-26] MEDS: HYDROmorphone INJ 0.5 MG/0.5 ML SYR IV PRN ×2 (10:59→19:19)
--- NOTE | 2020-10-26 14:44 | Magnetic Resonance Report ---
MRI OF THE LUMBAR SPINE WITHOUT IV CONTRAST CLINICAL HISTORY: Low back pain. COMPARISON STUDY: Radiographs of the lumbar spine dated 10/23/2020. MRI of the lumbar spine dated 2019. CT of the lumbar spine dated 06/03/2020. The examination is degraded by motion artifact. TECHNIQUE: MRI of the lumbar spine is performed utilizing various T1 and T2-weighted sequences in the axial and sagittal planes. IV contrast was not administered for this examination. FINDINGS: Lumbar spine: Marrow signal intensity is heterogeneous. There is no evidence of acute fracture. There is a severe chronic compression deformity of L1 with evidence of vertebroplasty and fragments which are retropulsed by up to 8 mm. There has been laminectomy at L1 and this is unchanged from the 06/03/20 examination. There is a chronic compression deformity of T12 which also shows vertebroplasty bell e. Mild chronic superior endplate compression deformities are also seen involving T11, L2, L4, and L5 . Postoperative change is seen between the spinous processes of L3 and L4. Small anterior and lateral marginal osteophytes are seen throughout. The transverse processes appear intact. Intervertebral discs: Degenerative disc desiccation and mild loss of height is seen throughout the sylvia mbar spine. Spinal cord: The visualized spinal cord is normal in morphology and signal intensity. The conus medul marcie terminates at the L1-L2 interspace. The nerve roots of the cauda equina are normal in morpholog y. T11-T12: The central canal and neural foramina are patent. Minimal disc bulge is observed. T12-L1: The central canal and neural foramina are patent. L1: Again seen are retropulsed fragments. This contributes to at least mild acquired compromise of th e central canal. The minimum AP diameter measures 10 mm. This abuts the transiting nerve roots. L1-L2: The central canal is clear. Retropulsed fragments and minimal facet arthropathy contribute to moderate right and mild left neural foraminal stenosis. L2-L3: There is minimal posterior disc bulge. In conjunction with hypertrophy of the ligamentum flavu m, there is mild to moderate central canal stenosis at this level with a minimum AP diameter of 8 mm. There is bilateral subarticular stenosis. This may abut the exiting left L2 nerve root. Disc bulge a lso abuts the transiting bilateral nerve roots. In conjunction with facet arthropathy there is mild l eft and mild to moderate right neural foraminal stenosis. L3-L4: There is a small posterior disc osteophyte complex. The central canal is clear. There is bilat eral subarticular stenosis which may impinge on the exiting bilateral L3 nerve roots. This also abuts the transiting nerve roots. In conjunction with facet arthropathy there is moderate to severe right and mild to moderate left neural foraminal stenosis. L4-L5: There is a small posterior disc osteophyte complex. The central canal is clear. There is bilat eral subarticular stenosis, with possible impingement on the exiting bilateral L4 nerve roots as well as the transiting bilateral nerve roots. In conjunction with facet arthropathy there is moderate to severe bilateral neural foraminal stenosis. L5-S1: The central canal is clear. Facet arthropathy is of no consequence. The neural foramina are pa tent. Sacrum: The visualized sacrum is normal in morphology and signal intensity. Soft tissues: There is fatty atrophy of the paraspinous musculature. The retroperitoneal structures a re grossly unremarkable but incompletely evaluated. IMPRESSION: 1. No acute abnormality is identified and there has been no significant change from the 06/03/2020 exam ination. 2. There are chronic compression deformities as above with post vertebroplasty change seen at T12 and L1. Retropulsed fragments at L1 are unchanged from previous. 3. Multilevel lumbosacral spondylosis with postoperative change as above. See discussion for detailed level by level analysis. 4. No destructive bony process is identified. Dictated: 10/26/2020 1:39 PM Transcribed: 10/26/2020 2:41 PM María [id number] LAILA_Alejandro Electronically signed by: Nikolas Ricks M.D. 10/26/2020 2:43 PM
--- NOTE | 2020-10-26 14:44 | Magnetic Resonance Report ---
MRI OF THE THORACIC SPINE WITHOUT IV CONTRAST CLINICAL HISTORY: Thoracic back pain. COMPARISON STUDY: Radiographs of the thoracic spine dated 10/23/2020. CT of the thoracic spine dated . MRI of the thoracic spine dated 07/25/2013. TECHNIQUE: MRI of the thoracic spine is performed utilizing various T1 and T2-weighted sequences in t he axial and sagittal planes. IV contrast was not administered for this examination. The examination is compromised by motion artifact, as well as by susceptibility artifact from orthopedic spinal hardw are. FINDINGS: Marrow signal intensity is heterogeneous. There are chronic compression deformities of T12 and L1 with evidence of previous vertebroplasty at these levels. Retropulsed fragments are again note d at L1. This was discussed on today's lumbar spinal MRI. There are minimal chronic superior endplate compression deformities of T1, T3, T4, T5, T6, and T11. There is no marrow edema involving these com pression deformities to suggest acuity. There is mild edema identified within the right superior endp late of T9. There is no loss of height or fracture identified and this is likely on a degenerative ba sis. There are large adjacent anterior osteophytes. No additional foci of marrow edema are identified . There is postoperative change from laminectomy and posterior fusion seen at T7 to T8. Extensive pos toperative change is seen within the lower cervical spine. Degenerative disc desiccation and mild los s of height is seen throughout the thoracic region. There is no disc herniation or central canal sten osis. The thoracic spinal cord is normal in morphology and signal intensity. There is no evidence of high-grade neural foraminal stenosis throughout the thoracic spine. There is fatty atrophy of the par aspinous musculature. Trace pleural effusions are noted. The lung parenchyma is grossly unremarkable, but not well evaluated by MRI. IMPRESSION: 1. There are numerous chronic compression deformities and postoperative change seen throughout the th oracic spine as above. 2. There is no MRI evidence of acute fracture. 3. There is mild marrow edema involving the right anterior aspect of the superior endplate of T9. No underlying bony lesion or fracture is seen and this is likely on a degenerative basis. 4. The central canal is clear. 5. Thoracic spinal cord is normal in morphology and signal intensity. 6. Trace pleural effusions. Dictated: 10/26/2020 1:53 PM Transcribed: 10/26/2020 2:34 SHANTI Daniel [id number] LAILA_Alejandro Electronically signed by: Nikolas Ricks M.D. 10/26/2020 2:43 PM
[2020-10-26] MEDS: traZODone HCL 100 MG TAB PO SCH (19:18)
[2020-10-27 07:04] LABS: Hemoglobin 12.7 g/dL (12.0-16.0); Mean Corpuscular Hemoglobin 29.8 pg (25-34); Mean Corpuscular Hgb Conc 32.6 g/dL (32-36); Mean Corpuscular Volume 91.5 fL (80-100); Mean Platelet Volume 8.8 fL (7.4-10.4); Platelet Count 267 K/uL (130-400); RDW Coefficient of Variation 13.8 % (11.5-14.5); Red Blood Count 4.26 M/uL (4.2-5.4); White Blood Count 10.02 K/uL (4.8-10.8)
[2020-10-27 07:49] LABS: Calcium 7.8 mg/dl (8.5-10.1); Creatinine Clr Calc Pharmacy 90.3 ml/min; Est GFR (African American) 106.7; Est GFR (Non-African American) 92.1; Magnesium 2.4 mg/dl (1.8-2.4); Potassium 4.3 mmol/L (3.5-5.1)
[2020-10-27] MEDS: HYDROmorphone INJ 0.5 MG/0.5 ML SYR IV PRN (07:53)
[2020-10-27] MEDS: ONDANSETRON INJ 2 MG/ML 2 ML VIAL IV PRN (07:53)
[2020-10-27] MEDS: CHOLECALCIFEROL 1,000 UNITS 25 MCG TAB PO SCH (08:36)
[2020-10-27] MEDS: MELOXICAM 7.5 MG TAB PO SCH (08:36)
[2020-10-27] MEDS: HYDROCODONE/ACETAMINOPHEN 7.5/325MG TAB PO PRN (08:36)
[2020-10-27] MEDS: ASPIRIN 81 MG ECTAB PO SCH (08:37)
[2020-10-27] MEDS: VENLAFAXINE HCL XR 75 MG CAPXR PO SCH (08:37)
[2020-10-27] MEDS: busPIRone 15 MG TAB PO SCH (08:37)
[2020-10-27] MEDS: ATORVASTATIN 20 MG TAB PO SCH (08:37)
[2020-10-27] MEDS: lisinopril 40 MG TAB PO SCH (08:37)
[2020-10-27] MEDS: NICOTINE 14 MG/24 HR PATCH TD SCH (08:38)
[2020-10-27] MEDS: SODIUM CHLORIDE 0.9% 1000ML 1,000 ML IV SCH (08:48)
--- NOTE | 2020-10-27 08:53 | Hospitalist Progress Note ---
Date of Service October 27, 2020 Assessment & Plan (1) Intractable back pain: This is a 65-year-old female who presents with off and on chronic back pain and nausea and vomiting. 1. Eohne-jp-tlevkfe back pain: The patient was started on Medrol Dosepak day prior admission, on admission she was having nausea, vomiting, abdominal discomfort, hold Medrol Dosepak. Continue her home pain medications, also placed on IV Dilaudid p.r.n. PT/OT Consult orthopedics. The patient was planned for spinal stimulator, but it was held because of the ongoing pandemic. Seen by ortho spine - MRI of thoracic/ lumbar region obtained and reviewed. There is no evidence of acute fracture or neural compression. Dr. Arias plans to follow up with the pt in his office and arrange for a dorsal column stimulator trial. 2. Abdominal pain and nausea and vomiting: CT of the abdomen and pelvis unremarkable, possibly from steroid use. Placed on IV Pepcid. Clear liquid diet ordered. Gentle fluids and monitor. Resolved Pt now feels better, diet was advanced and pt has no longer any n/v. 3. Leukocytosis: Likely reactive from her nausea and vomiting and also could be from the steroids. No signs of infection. WBC trended down, now normalized at 9 thousand. Resolved 4. History of depression and anxiety: Continue buspirone, venlafaxine, and trazodone. 5. Hypertension. Continue her lisinopril. 6. Chronic pain: Continue her Beltrami, meloxicam, and lidocaine patch and baclofen p.r.n. IV dilaudid ordered prn for breakthrough pain 7. Hyperlipidemia: Continue statin. 8. Prediabetes: Current HbA1c 5.8%, follow up as outpt. DVT prophylaxis: SCDs. Admission and Anticipated Discharge Date Admission Date: October 26, 2020 Subjective Pt seen in follow up of chronic back pain, leg pain. MRI obtained and reviewed by ortho spine. Dr. Arias plans to follow up with the pt in his office - to arrange for a dorsal column stimulator trial. Review of Systems Review of Systems: All systems reviewed & are unremarkable except as noted in HPI & below Constitutional: no fever and no chills Respiratory: no cough and no dyspnea Cardiovascular: no chest pain and no palpitations Gastrointestinal: no abdominal pain, no nausea and no vomiting Genitourinary: no dysuria Physical Exam Physical Exam: GENERAL: obese female, laying in bed, not in acute distress. HEENT: NC/AT, PERRL, Oral mucosa moist. NECK: No neck masses seen. CARDIOVASCULAR: S1, S2 heard. Regular rate and rhythm, no murmur, no gallop. RESPIRATORY SYSTEM: Normal AP diameter. No accessory muscle use. No wheezing, no crackles. ABDOMEN: Soft, bowel sounds present, obese. Nontender. No rigidity, no guarding. No distention. NEURO: alert and oriented x3, speech fluent, no facial asymmetry, Cranial nerves II-XII are grossly intact. Moves extremities. EXTREMITIES: No edema, no erythema. MUSCULOSKELETAL: Moves extremities, reports pain pain when moving LEs. Results & Data Results & Data ([facility]) Vital Signs (Past 12 Hours) Vital Signs Temp Pulse Resp BP BP Pulse Ox 10/27/20 07:11 36.7 C 70 18 156/81 H 97 10/27/20 00:21 36.4 C L 65 18 97/60 L 91/52 L 93 Laboratory Results 10/27/20 10/27/20 Range/Units 06:45 06:45 WBC 10.02 (4.8-10.8) K/uL RBC 4.26 (4.2-5.4) M/uL Hgb 12.7 (12.0-16.0) g/dL Hct 39.0 (37-47) % MCV 91.5 (80-100) fL MCH 29.8 (25-34) pg MCHC 32.6 (32-36) g/dL RDW Std Deviation 46.0 (36.4-46.3) fL RDW Coeff of Jimi 13.8 (11.5-14.5) % Plt Count 267 (130-400) K/uL MPV 8.8 (7.4-10.4) fL Sodium 142 (136-145) mmol/L Potassium 4.3 D (3.5-5.1) mmol/L Chloride 115 H (98-107) mmol/L Carbon Dioxide 23 (21-32) mmol/L Anion Gap 4.0 (3-11) BUN 14 (7-18) mg/dl Creatinine 0.66 (0.6-1.2) mg/dl Est Cr Clr Drug Dosing 90.3 ml/min Est GFR ( Amer) 106.7 Est GFR (Non-Af Amer) 92.1 BUN/Creatinine Ratio 21.0 H (10-20) Glucose 85 (70-99) mg/dl Calcium 7.8 L (8.5-10.1) mg/dl Phosphorus 3.0 (2.5-4.9) mg/dl Magnesium 2.4 (1.8-2.4) mg/dl Medications Administered Current Inpatient Medications Acetaminophen (Acetaminophen 325 Mg Tab) 650 mg PO Q4H PRN PRN Reason: Pain Stop: 11/25/20 01:01 Hydrocodone Bitart/Acetaminophen (Hydrocodone/Acetaminophen 7.5/325mg Tab) 1 tab PO Q8H PRN PRN Reason: pain Stop: 11/07/20 22:12 Last Admin: 10/27/20 08:36 Dose: 1 tab Documented by: Aspirin (Aspirin 81 Mg Ectab) [facility] [place] Stop: 11/24/20 08:59 Last Admin: 10/27/20 08:37 Dose: 81 mg Documented by: Atorvastatin Calcium (Atorvastatin 20 Mg Tab) 20 mg PO QAM [facility] Stop: 11/24/20 08:59 Last Admin: 10/27/20 08:37 Dose: 20 mg Documented by: Baclofen (Baclofen 10 Mg Tab) 10 mg PO TID PRN PRN Reason: Muscle Spasm/Pain Stop: 11/23/20 22:12 Last Admin: 10/26/20 19:19 Dose: 10 mg Documented by: Buspirone HCl (Buspirone 15 Mg Tab) 15 mg PO TID [facility] Stop: 11/24/20 08:59 Last Admin: 10/27/20 08:37 Dose: 15 mg Documented by: Diphenhydramine HCl (Diphenhydramine Capsule 25 Mg Cap) 25 mg PO HS PRN PRN Reason: Anxiety/Insomnia Stop: 11/25/20 01:01 Fluticasone Propionate (Fluticasone Propionate Na Spr 16 Gm Btl) 2 sprays NA DAILY PRN PRN Reason: Congestion Stop: 11/23/20 22:12 Last Admin: 10/26/20 08:09 Dose: 2 sprays Documented by: Hydralazine HCl (Hydralazine Hcl 20 Mg/Ml Vial) 5 mg IV Q6H PRN PRN Reason: Hypertension Stop: 11/23/20 22:52 Last Admin: 10/25/20 00:03 Dose: 5 mg Documented by: Hydromorphone HCl (Hydromorphone Inj 0.5 Mg/0.5 Ml Syr) 0.5 mg IV Q3H PRN PRN Reason: Pain Stop: 11/07/20 22:12 Last Admin: 10/27/20 07:53 Dose: 0.5 mg Documented by: Hydroxyzine HCl (Hydroxyzine Hcl 25 Mg Tab) 25 mg PO Q6H PRN PRN Reason: anxiety Stop: 11/23/20 22:12 Last Admin: 10/26/20 00:25 Dose: 25 mg Documented by: Sodium Chloride (Nss 1000ml) 1,000 mls @ 100 mls/hr IV .Q10H [facility] Stop: 11/23/20 22:12 Last Admin: 10/27/20 08:48 Dose: 100 mls/hr Documented by: Lidocaine (Lidocaine 5% 1 Patch) 1 patch TD DAILY PRN PRN Reason: pain Stop: 11/23/20 22:12 Lisinopril (Lisinopril 40 Mg Tab) 40 mg PO QAM [facility] Stop: 11/24/20 08:59 Last Admin: 10/27/20 08:37 Dose: 40 mg Documented by: Meloxicam (Meloxicam 7.5 Mg Tab) 15 mg PO DAILY [facility] Stop: 11/24/20 08:59 Last Admin: 10/27/20 08:36 Dose: 15 mg Documented by: Miscellaneous (Remove Lidoderm Patch) 1 ea N/A DAILY@2100 [facility] Stop: 11/24/20 20:59 Last Admin: 10/26/20 19:19 Dose: 1 ea Documented by: Miscellaneous (Remove Nicoderm Patch) 1 ea N/A DAILY@0859 [facility] Stop: 11/25/20 08:58 Last Admin: 10/27/20 08:38 Dose: 1 ea Documented by: Nicotine (Nicotine 14 Mg/24 Hr Patch) 14 mg TD DAILY [facility] Stop: 11/24/20 19:44 Last Admin: 10/27/20 08:38 Dose: 14 mg Documented by: Ondansetron HCl (Ondansetron Inj 2 Mg/Ml 2 Ml Vial) 4 mg IV Q6H PRN PRN Reason: Nausea Stop: 11/24/20 02:19 Last Admin: 10/27/20 07:53 Dose: 4 mg Documented by: Trazodone HCl (Trazodone Hcl 100 Mg Tab) 100 mg PO [facility] Stop: 11/24/20 20:59 Last Admin: 10/26/20 19:18 Dose: 100 mg Documented by: Venlafaxine HCl (Venlafaxine Hcl Xr 75 Mg Capxr) [facility] [place] Stop: 11/24/20 08:59 Last Admin: 10/27/20 08:37 Dose: 225 mg Documented by: Vitamin D (Cholecalciferol 1,000 Units 25 Mcg Tab) 2,000 units [facility] [place] Stop: 11/24/20 08:59 Last Admin: 10/27/20 08:36 Dose: 2,000 units Documented by:
[2020-10-27] MEDS: hydrOXYzine HCl 25 MG TAB PO PRN (09:20)
--- NOTE | 2020-10-27 10:13 | Orthopedic Progress Note ---
Date of Service October 27, 2020 Assessment & Plan (1) Intractable back pain: Admission and Anticipated Discharge Date Admission Date: October 26, 2020 I reviewed with the patient the results of her MRI of the thoracic lumbar spine. There is no evidence of acute fracture or neural compression. I suspect she continues to have chronic persistent back and leg pain. We discussed her following with my office to arrange for a dorsal column stimulator trial. Subjective Patient's still complaining of back and leg pain. Physical Exam Physical Exam: On exam she is tearful. This is her usual presentation. She is neurologically intact. Results & Data ([facility]) Vital Signs (Past 12 Hours) Vital Signs Temp Pulse Resp BP BP Pulse Ox 10/27/20 07:11 36.7 C 70 18 156/81 H 97 10/27/20 00:21 36.4 C L 65 18 97/60 L 91/52 L 93
--- NOTE | 2020-10-27 11:20 | Discharge Summary ---
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 Presents because of severe back pain. She was in the ER yesterday. CAT scan was done of the back, which was unremarkable and she was discharged on Medrol Dosepak. Again, today comes because of severe nausea, vomiting, abdominal discomfort, and chronic back pain. CT of the abdomen and pelvis is unremarkable. The patient complains of severe pain and asking for pain medications. Her white count is elevated, but denies any fever or chills. Has chronic cough. Had headache earlier, but that has resolved now. No blurred visions. No earache, no runny nose, no sore throat. Appetite is not good for the last few days. Last bowel movement was 2 or 3 days ago. Normal bladder movements. Denies any chest pain, no shortness of breath. Currently, hemodynamics are stable. Admission Exam Per Admitting Provider GENERAL: The patient is obese, not in acute distress. VITAL SIGNS: Temperature 37.3, pulse 76, respiratory rate 20, blood pressure 169/90, oxygen 97% on room air. HEENT: Pupils equal, round, and reactive to light. Oral mucosa moist. NECK: No neck masses seen. CARDIOVASCULAR: S1, S2 heard. Regular rate and rhythm, no murmur, no gallop. RESPIRATORY SYSTEM: Normal AP diameter. No accessory muscle use. No wheezing, no crackles. ABDOMEN: Soft, bowel sounds present. Mild abdominal discomfort. Mild guarding, no rigidity. No distention. CENTRAL NERVOUS SYSTEM: Cranial nerves II-XII are grossly intact. Nonfocal. EXTREMITIES: No edema, no erythema. MUSCULOSKELETAL: Straight leg test negative. Principal Diagnosis Acute on chronic back pain N/V secondary to pain Leukocytosis Discharge Exam GENERAL: obese female, laying in bed, not in acute distress. HEENT: NC/AT, PERRL, Oral mucosa moist. NECK: No neck masses seen. CARDIOVASCULAR: S1, S2 heard. Regular rate and rhythm, no murmur, no gallop. RESPIRATORY SYSTEM: Normal AP diameter. No accessory muscle use. No wheezing, no crackles. ABDOMEN: Soft, bowel sounds present, obese. Nontender. No rigidity, no guarding. No distention. NEURO: alert and oriented x3, speech fluent, no facial asymmetry, Cranial nerves II-XII are grossly intact. Moves extremities. EXTREMITIES: No edema, no erythema. MUSCULOSKELETAL: Moves extremities, reports pain pain when moving LEs. Discharge Data Allergies Allergy/AdvReac Type Severity Reaction Status Date / Time Iodinated Contrast Media Allergy Intermediate facial Verified 10/25/20 10:25 swelling [facility] 08/04/19 Penicillins Allergy Unknown SWELLING Verified 10/24/20 15:08 EVERYWHERE[place] Consultations 10/24/20 20:17 ED Decision to Admit Stat 10/24/20 22:13 Consult Case Management - Discharge Planning Routine Consult Orthopedic Surgery Routine Ordered Studies 10/24/20 15:51 CT abd pelvis IV con only Stat IMPRESSION: There are no acute infectious or inflammatory findings in the abdomen or pelvis. 10/26/20 09:00 MR lumbar spine wo con Routine MR thoracic spine wo con Routine IMPRESSION: 1. There are numerous chronic compression deformities and postoperative change seen throughout the thoracic spine as above. 2. There is no MRI evidence of acute fracture. 3. There is mild marrow edema involving the right anterior aspect of the superior endplate of T9. No underlying bony lesion or fracture is seen and this is likely on a degenerative basis. 4. The central canal is clear. 5. Thoracic spinal cord is normal in morphology and signal intensity. 6. Trace pleural effusions. IMPRESSION: 1. No acute abnormality is identified and there has been no significant change from the 06/03/2020 examination. 2. There are chronic compression deformities as above with post vertebroplasty change seen at T12 and L1. Retropulsed fragments at L1 are unchanged from previous. 3. Multilevel lumbosacral spondylosis with postoperative change as above. See discussion for detailed level by level analysis. 4. No destructive bony process is identified. Hospital Course (1) Intractable back pain: This is a 65-year-old female who presents with off and on chronic back pain and nausea and vomiting. 1. Encrp-ls-gvvmrov back pain: The patient was started on Medrol Dosepak day prior admission, on admission she was having nausea, vomiting, abdominal discomfort, hold Medrol Dosepak. Continue her home pain medications, also placed on IV Dilaudid p.r.n. PT/OT Consult orthopedics. The patient was planned for spinal stimulator, but it was held because of the ongoing pandemic. Seen by ortho spine - MRI of thoracic/ lumbar region obtained and reviewed. There is no evidence of acute fracture or neural compression. Dr. Arias plans to follow up with the pt in his office and arrange for a dorsal column stimulator trial. 2. Abdominal pain and nausea and vomiting: CT of the abdomen and pelvis unremarkable, possibly from steroid use. Placed on IV Pepcid. Clear liquid diet ordered. Gentle fluids and monitor. Resolved Pt now feels better, diet was advanced and pt has no longer any n/v. 3. Leukocytosis: Likely reactive from her nausea and vomiting and also could be from the steroids. No signs of infection. WBC trended down, now normalized at 9 thousand. Resolved 4. History of depression and anxiety: Continue buspirone, venlafaxine, and trazodone. 5. Hypertension. Continue her lisinopril. 6. Chronic pain: Continue her Arona, meloxicam, and lidocaine patch and baclofen p.r.n. IV dilaudid ordered prn for breakthrough pain 7. Hyperlipidemia: Continue statin. 8. Prediabetes: Current HbA1c 5.8%, follow up as outpt. Total Time Total Time Spent Total Time Spent (In Minutes): 35 Total Time Includes: Examination of the Patient, Discharge Planning, Medication Reconciliation and Communication With Other Providers Discharge Plan Discharge Items Patient Disposition: Home - Self-Care Reason For Visit: N/V AND BACK BACK PAIN Discharge Diagnosis: Acute on chronic back pain N/V secondary to pain Leukocytosis Activity: Per Instructions section Non-emergency contact: Primary Care Provider, Surgeon and Specialist Call non-emergency contact if: you have any medication questions and your symptoms worsen Follow-up/Referrals: PCP,NO [Primary Care Provider] - Diet: Heart Healthy Addtl Attending Provider Instructions: Follow up with Dr. Arias as discussed. His office will be in contact with you. In the meantime, continue taking your home pain medications, lidocaine patch etc. recommend not to exert yourself. Pending Studies at Discharge: No Stand-Alone Forms: [facility] [employer] [facility], Smoking Cessation Medications and DC Order Prescriptions: Continued aspirin [Aspirin Low Dose] 81 mg Tablet,Delayed Release (Dr/Ec) 81 mg PO QAM RF: 0 baclofen 10 mg Tablet 10 mg PO TID PRN (Reason: Muscle Spasm/Pain) RF: 0 buspirone 15 mg Tablet 15 mg PO TID RF: 0 cholecalciferol (vitamin D3) 2,000 unit Tablet 2,000 units PO QAM RF: 0 trazodone 50 mg Tablet 100 mg PO HS RF: 0 venlafaxine 225 mg Tablet Extended Release 24hr 225 mg PO QAM RF: 0 atorvastatin 20 mg tablet 20 mg PO QAM RF: 0 lisinopril 40 mg tablet 40 mg PO QAM RF: 0 ondansetron 4 mg tablet,disintegrating 4 mg PO Q8H PRN (Reason: Nausea) RF: 0 fluticasone propionate [Flonase Allergy Relief] 50 mcg/actuation [place],Suspension 2 spray INTRANASAL DAILY PRN (Reason: Congestion) RF: 0 hydrocodone-acetaminophen [Arona] 7.5-325 mg tablet 1 tab PO Q8H PRN (Reason: pain) Qty: 10 RF: 0 meloxicam 15 mg tablet 15 mg PO DAILY RF: 0 lidocaine [Lidoderm] 5 % adhesive patch,medicated 1 patch TOP DAILY PRN (Reason: pain) Qty: 15 RF: 0 promethazine 25 mg tablet 25 mg PO TID PRN (Reason: nausea and vomiting) Qty: 9 RF: 0 hydroxyzine HCl 25 mg Tablet 25 mg PO Q6H PRN (Reason: anxiety) Qty: 30 RF: 0 Discontinued methylprednisolone 4 mg tablets,dose pack See Rx Instructions .ROUTE .COMPLEX Qty: 21 RF: 0 Discharge Orders: Discharge Order (Routine); Ordered 10/27/20 Ordered By: Bartolome Gipson Admission Data Admit Date/Time: 10/26/20 12:55 Attending Provider: Bartolome Gipson Admit Provider: Sam Pierson Primary Care Provider: PCP,NO Other Providers: Sam Pierson ; Juan David Arias Other Interventions: Discharge Summary Assessment (RN) Last Done: 10/27/20 11:15
[2020-10-27] MEDS ORDERED: POLYETHYLENE (MIRALAX) 17 GM PACK PO SCH (11:30)
[2020-10-27] MEDS ORDERED: HYDROmorphone INJ 0.5 MG/0.5 ML SYR IV ONE (12:05)
== END 2020-10-27 12:23 | disposition home or self-care (01) ==
LOC: 3N 13:17 → ED 13:17 → 3N 21:41

== ENCOUNTER 2021-01-19 13:47 | Inpatient (IN) ==
[2021-01-19] MEDS ORDERED: HYDROmorphone INJ 1 MG/ML SYRINGE IV STA ×2 (14:21→16:04)
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
[2021-01-19 15:22] LABS: Alanine Aminotransferase 22 U/L (12-78); Albumin Level 3.7 gm/dl (3.4-5.0); Aspartate Aminotransferase 9 U/L (15-37); Blood Urea Nitrogen 14 mg/dl (7-18); Calcium 9.3 mg/dl (8.5-10.1); Carbon Dioxide 28 mmol/L (21-32); Chloride 106 mmol/L (98-107); Creatinine Clr Calc Pharmacy 81.1 ml/min; Est GFR (African American) 101.1; Est GFR (Non-African American) 87.3; Glucose 79 mg/dl (70-99); Lipase 138 U/L (73-393); Potassium 4.9 mmol/L (3.5-5.1); Sodium 138 mmol/L (136-145)
[2021-01-19 15:27] LABS: Albumin Globulin Ratio 0.9 (0.9-2); Alkaline Phosphatase 72 U/L (45-117); Bilirubin,Total 0.3 mg/dl (0.2-1); Globulin 3.9 gm/dl (2.5-4.0); Total Protein 7.6 gm/dl (6.4-8.2); Troponin I < 0.015 ng/ml (0-0.045)
[2021-01-19 15:50] LABS: Basophils # (auto) 0.03 K/uL (0-0.2); Basophils % (auto) 0.2 %; Eosinophils # (auto) 0.41 K/uL (0-0.5); Eosinophils % (auto) 3.1 %; Hematocrit (blood only) 42.1 % (37-47); Hemoglobin 13.9 g/dL (12.0-16.0); Immature Granulocytes # (auto) 0.05 K/uL (0.00-0.02); Immature Granulocytes % (auto) 0.4 %; Lymphocytes # (auto) 3.15 K/uL (1.2-3.4); Lymphocytes % (auto) 23.5 %; Mean Corpuscular Volume 90.7 fL (80-100); Mean Platelet Volume 9.1 fL (7.4-10.4); Monocytes # (auto) 1.14 K/uL (0.11-0.59); Monocytes % (auto) 8.5 %; Neutrophils # (auto) 8.61 K/uL (1.4-6.5); Neutrophils % (auto) 64.3 %; Platelet Count 281 K/uL (130-400); RDW Coefficient of Variation 13.7 % (11.5-14.5); RDW Standard Deviation 45.8 fL (36.4-46.3); Red Blood Count 4.64 M/uL (4.2-5.4); White Blood Count 13.39 K/uL (4.8-10.8)
--- NOTE | 2021-01-19 17:08 | CT Scan Report ---
CT OF THE HEAD WITHOUT CONTRAST CLINICAL HISTORY: FALL COMPARISON STUDY: No previous studies for comparison. TECHNIQUE: Helical axial images of the head were obtained without IV contrast. Automated exposure con trol was utilized for the study. A dose lowering technique was utilized adhering to the principles o f ALARA. FINDINGS: No acute intracranial hemorrhage, midline shift or mass effect is present. The ventricular system is unremarkable. The basal cisterns are patent. No extra-axial collections are present. There are no findings to suggest acute dural sinus thrombosis or acute territorial infarct. No significant calvarial abnormalities are present. There is mild sinus mucosal thickening. IMPRESSION: 1. No acute intracranial findings. 2. No calvarial fracture. ACT 112: Negative or not required by law. Electronically signed by: [place] Duron M.D. 01/19/2021 5:07 PM
--- NOTE | 2021-01-19 17:11 | CT Scan Report ---
CT OF THE CERVICAL SPINE WITHOUT CONTRAST CLINICAL HISTORY: FALL COMPARISON STUDY: CT of the cervical spine June 03, 2020. TECHNIQUE: Helical axial images of the cervical spine were obtained without IV contrast. Sagittal a nd coronal reconstructions were viewed. Automated exposure control was utilized for the study. A do se lowering technique was utilized adhering to the principles of ALARA. FINDINGS: Alignment of the cervical spine is anatomic. Vertebral body heights are maintained. No acut e cervical spine fracture or subluxation is present. There is no prevertebral edema. Facet joints are intact. There are postoperative findings consistent with C4-C7 anterior discectomy fusion. Postoper ative appearance is unchanged. Severe multilevel facet arthrosis is noted. IMPRESSION: 1. No acute cervical spine fracture or subluxation. 2. Status post C4-C7 anterior discectomy and fusion. ACT 112: Negative or not required by law. Electronically signed by: [place] Duron M.D. 01/19/2021 5:10 PM
[2021-01-19 17:18] LABS: Influenza A virus by PCR Negative (Neg); Influenza B virus by PCR Negative (Neg); RSV by PCR Negative (Neg); SARS CoV2 RNA(COVID-19) InHosp NEGATIVE (Negative)
--- NOTE | 2021-01-19 17:31 | CT Scan Report ---
CT OF THE ABDOMEN AND PELVIS WITHOUT CONTRAST CLINICAL HISTORY: Fall. Right hip pain. Back pain. COMPARISON STUDY: CT of the abdomen and pelvis October 24, 2020 TECHNIQUE: Axial images of the abdomen and pelvis were obtained without IV contrast. Images were revi ewed in the axial, sagittal, and coronal planes. Automated exposure control was utilized for the arminda dy. A dose lowering technique was utilized adhering to the principles of ALARA. FINDINGS: Evaluation of the abdomen and pelvis is suboptimal on this unenhanced examination. No hemop eritoneum or pneumoperitoneum is noted. There is no evidence for traumatic injury to the liver, splee n, adrenal glands, kidneys or pancreas on this unenhanced exam. The caliber of small and large bowel are normal. There is no evidence for a bowel obstruction. The lumbar spine CT will be reported separa tely. No acute fracture within the pelvis or hips is identified. No suspicious osseous lesions are no kathryn. There is moderate atherosclerotic plaque of the abdominal aorta. No free fluid is present. IMPRESSION: No acute traumatic findings within the abdomen or pelvis on unenhanced exam. ACT 112: Negative or not required by law. Electronically signed by: [place]on M.D. 01/19/2021 5:30 PM
--- NOTE | 2021-01-19 17:39 | CT Scan Report ---
CT OF THE LUMBAR SPINE CLINICAL HISTORY: FALL COMPARISON STUDY: MRI of the lumbar spine October 26, 2020. TECHNIQUE: Helical axial images of the lumbar spine were obtained. Sagittal and coronal reconstruct ions were viewed. Automated exposure control was utilized for the study. A dose lowering technique was utilized adhering to the principles of ALARA. FINDINGS: Please note that the CT of the abdomen and pelvis will be reported separately. Multilevel p osterior decompression within the lumbar spine is noted. Postoperative appearance is unchanged. There are postoperative findings consistent with T12 and L1 kyphoplasties with old compression fractures. Retropulsion at the L1 level is unchanged. Postoperative findings within the posterior elements at th e L3-L4 level are noted. Old compression fractures of L2, L4 and L5 are unchanged. Mild concavity of the inferior endplate of L3 with suspected acute fractures noted. This has developed since previous MRI and CT. No additional acute fractures are present. IMPRESSION: 1. Interval development of mild concavity of the inferior endplate of L3. This likely reflects an acu te fracture. No additional acute fractures within the lumbar spine. 2. Otherwise, no change in appearance of the lumbar spine, as described above. ACT 112: Negative or not required by law. Electronically signed by: [place] M.D. 01/19/2021 5:37 PM
[2021-01-19 17:51] LABS: Appearance Urine Clear (Clear); Bacteria Urine Automated Negative (Negative); Bilirubin Urine Negative (Negative); Blood Urine Trace (Negative); Color Urine Yellow; Epithelial Cell Urine Auto 20-30 /lpf (0-5); Glucose Urine UA Negative (Negative); Ketones Urine Negative (Negative); Leukocyte Esterase Urine Negative (Negative); Nitrite Urine Negative (Negative); Protein Urine Negative (Negative); RBC Urine Automated 0-4 /hpf (0-4); Specific Gravity Urine 1.015 (1.000-1.030); Urobilinogen Urine Negative (Negative); pH Urine 6.5 (4.5-7.5)
[2021-01-19] MEDS ORDERED: BACLOFEN 10 MG TAB PO ONE (18:17)
[2021-01-19] MEDS ORDERED: BACLOFEN 10 MG TAB ONE (18:28)
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
[2021-01-19] MEDS ORDERED: HYDROmorphone INJ 0.5 MG/0.5 ML SYR IV PRN (18:59)
--- NOTE | 2021-01-19 19:06 | XRay Report ---
XR knee RT 1 or 2V routine CLINICAL HISTORY: FALL COMPARISON: Right knee radiographs January 21, 2009. Right lower extremity CT October 31, 2009. FINDINGS: Old, healed mid diaphyseal fractures of the right tibia and fibula are partially imaged. H ardware within the medial compartment right knee is noted. There is no acute fracture. There is contr ast calcinosis within the lateral meniscus. No right knee joint effusion is noted. Moderate lateral p atellofemoral osteoarthritis are noted. There is osteopenia. IMPRESSION: 1. No acute fracture or joint effusion of the right knee. 2. Moderate lateral and patellofemoral compartment osteoarthritis of the right knee. ACT 112: Negative or not required by law. Electronically signed by: [place] M.D. 01/19/2021 7:05 PM
--- NOTE | 2021-01-19 19:07 | XRay Report ---
XR shoulder RT min 2V routine CLINICAL HISTORY: Right shoulder pain following fall. COMPARISON: None FINDINGS: Incidental note is made of postoperative findings within the spine. Alignment of the right shoulder is anatomic. There is no acute fracture. Moderate to severe degenerative changes within the right shoulder are noted. IMPRESSION: 1. No acute fracture. 2. Moderate to severe degenerative changes within the right shoulder. ACT 112: Negative or not required by law. Electronically signed by: [place] M.D. 01/19/2021 7:06 PM
[2021-01-19] MEDS ORDERED: ACETAMINOPHEN 325 MG TAB PO PRN (19:34)
[2021-01-19] MEDS: traZODone HCL 100 MG TAB PO SCH (21:26)
[2021-01-19] MEDS: busPIRone 15 MG TAB PO SCH (21:26)
[2021-01-19] MEDS: HYDROcodone/ACETAMINOPHEN 10/325 TAB PO PRN (23:27)
[2021-01-20] MEDS: HYDROmorphone INJ 0.5 MG/0.5 ML SYR IV PRN ×3 (03:59→10:23)
[2021-01-20 07:08] LABS: Hematocrit (blood only) 39.5 % (37-47); Hemoglobin 13.5 g/dL (12.0-16.0); Mean Corpuscular Hgb Conc 34.2 g/dL (32-36); Mean Corpuscular Volume 90.8 fL (80-100); Mean Platelet Volume 8.6 fL (7.4-10.4); Platelet Count 299 K/uL (130-400); RDW Coefficient of Variation 13.7 % (11.5-14.5); RDW Standard Deviation 46.2 fL (36.4-46.3); Red Blood Count 4.35 M/uL (4.2-5.4); White Blood Count 10.04 K/uL (4.8-10.8)
[2021-01-20 07:45] LABS: BUN Creatinine Ratio 27.4 (10-20); Calcium 8.5 mg/dl (8.5-10.1); Creatinine Clr Calc Pharmacy 89.8 ml/min; Est GFR (African American) 107.2; Est GFR (Non-African American) 92.5; Potassium 4.5 mmol/L (3.5-5.1)
[2021-01-20] MEDS: ONDANSETRON INJ 2 MG/ML 2 ML VIAL IV PRN (07:54)
[2021-01-20] MEDS: HYDROcodone/ACETAMINOPHEN 10/325 TAB PO PRN ×2 (07:54→21:10)
[2021-01-20] MEDS: NICOTINE 21 MG/24 HR TDSY TD SCH (09:18)
[2021-01-20] MEDS: CHOLECALCIFEROL 1,000 UNITS 25 MCG TAB PO SCH (09:18)
[2021-01-20] MEDS: busPIRone 15 MG TAB PO SCH ×3 (09:18→21:06)
[2021-01-20] MEDS: MULTIVITAMIN TAB PO SCH (09:19)
[2021-01-20] MEDS: ATORVASTATIN 20 MG TAB PO SCH (09:19)
[2021-01-20] MEDS: lisinopril 40 MG TAB PO SCH (09:19)
[2021-01-20] MEDS: ASPIRIN 81 MG ECTAB PO SCH (09:19)
[2021-01-20] MEDS: VENLAFAXINE HCL XR 75 MG CAPXR PO SCH (09:20)
[2021-01-20] MEDS: MELOXICAM 7.5 MG TAB PO SCH (09:20)
[2021-01-20] MEDS: hydrOXYzine HCl 25 MG TAB PO PRN ×2 (11:24→21:10)
[2021-01-20] MEDS ORDERED: bisacodyL 5 MG TABEC PO PRN (12:15)
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
[2021-01-20] MEDS: POLYETHYLENE (MIRALAX) 17 GM PACK PO SCH (13:16)
--- NOTE | 2021-01-20 13:25 | Hospitalist Progress Note ---
Date of Service January 20, 2021 Assessment & Plan (1) Intractable back pain: (2) Compression fracture: -Patient presenting from home with reports of intractable back pain -In the ED, CT lumbar spine shows acute inferior endplate fracture of L3 -Spinal orthopedics consulted, appreciate input MRI of lumbar spine ordered Continue pain control, order for PT OT (3) Essential hypertension: -BP controlled, continue lisinopril (4) Anxiety: (5) Depression: -Stable, continue medications (6) DVT prophylaxis: -SCDs in the event patient needs invasive procedure re: compression fracture Moderate to high risk for lower extremity DVT given obesity, limited activity secondary to chronic low back pain Should be started on pharmacological chemoprophylaxis, either subcu heparin or Lovenox if no lumbar spine procedure is planned Full code Disposition Awaiting PT OT evaluation patient may benefit with inpatient rehab upon discharge to hospital Admission and Anticipated Discharge Date Admission Date: January 19, 2021 Subjective Follow-up visit for intractable back pain/L3 compression fracture Patient is very tearful, states her back hurts more than anything, with leading to numbness on right hip and leg area, Was seen by Dr. Arias earlier, plan to have MRI of lumbar spine Complaint of constipation did not had a bowel movement for last 3 days, has abdominal bloating, no nausea vomiting Bowel regimen ordered No complaint of cough or shortness of breath, No fever chills, no chest pain Review of Systems Review of Systems: All systems reviewed & are unremarkable except as noted in Subjective Physical Exam Constitutional: WD/WN, vitals as above + obese Eyes: + anicteric sclerae ENMT: external ear and nose normal, oropharynx normal Neck: trachea midline, no thyromegaly Respiratory: normal respiratory effort, lungs clear to auscultation Cardiovascular: RRR, no murmur, no edema Gastrointestinal (Abdomen): Percussion/Palpation: abdomen soft; abdomen nontender Musculoskeletal: Spine: + lumbar spinal tenderness (Tenderness on lower lumbar spine) Skin: no rashes, warm and dry Neurologic: PERRL, EOMI, accommodation nl, no face palsy, no dysarthria Psychiatric: A+Ox3, euthymic affect Results & Data Results & Data ([facility]) Vital Signs (Past 12 Hours) Vital Signs Temp Pulse Resp BP Pulse Ox 01/20/21 07:42 36.9 C 64 19 126/76 93
--- NOTE | 2021-01-20 14:11 | Electrocardiogram Report ---
Test Reason : Blood Pressure : / mmHG Vent. Rate : 068 BPM Atrial Rate : 068 BPM P-R Int : 144 ms QRS Dur : 078 ms QT Int : 398 ms P-R-T Axes : 067 034 056 degrees QTc Int : 423 ms Normal sinus rhythm Possible Left atrial enlargement Borderline ECG When compared with ECG of 25-OCT-2020 08:39, No significant change was found Confirmed by Vinay Saldana ([id number]) on 01/20/2021 2:11:18 PM Referred By: REFERRED SELF Confirmed By:Julito Saldana
[2021-01-20] MEDS ORDERED: HYDROmorphone INJ 0.5 MG/0.5 ML SYR IV STA (14:20)
[2021-01-20] MEDS: LORazepam 1 MG TAB PO SCH ×2 (17:09→17:16)
[2021-01-20] MEDS ORDERED: LORazepam 1 MG/2 ML VIAL IV ONE (18:00)
--- NOTE | 2021-01-20 19:37 | Magnetic Resonance Report ---
LUMBAR SPINE MRI HISTORY: Low back pain TECHNIQUE: Multiplanar multisequence MRI of the lumbar spine was performed without the use of contras t. COMPARISON: Lumbar CT 01/19/2021. FINDINGS: For the purpose of the report the L5-S1 disc space will be located on axial image 38 and 43 . Marrow edema at the mild acute inferior endplate compression fracture at L3. This demonstrates less t patel 10% loss of height centrally. No associated retropulsion. No change in the old compression deform ities within the remaining lumbar spine vertebral bodies. Vertebral plasties at T12 and L1 are again noted. Stable retropulsion of L1 measuring up to 6 mm resulting in [id number] central canal danyelle rowing at this level. The conus terminates at the L1 level. Prior L1 posterior decompression. There i s a Coflex device at L3-L4. Disc spaces are relatively preserved for age. The visualized sacrum is in tact. Mild paravertebral edema at the L3 level. L1-L2: No significant central canal narrowing. There is moderate bilateral neural foraminal narrowing due to the L1 retropulsion. L2-L3: Mild central canal narrowing due to the ligamentum flavum and facet hypertrophy. There is also mild bilateral neural foraminal narrowing. L3-L4: Mild central canal narrowing due to the broad-based posterior disc bulge and ligamentum flavum and facet hypertrophy. There is moderate bilateral neural foraminal narrowing. L4-L5: No significant central canal narrowing. There is a small focal central disc protrusion. There is mild bilateral neural foraminal narrowing. L5-S1: No significant central canal or neural foraminal narrowing. IMPRESSION: 1. An acute mild inferior endplate compression fracture at L3. No associated retropulsion. 2. No change in the additional chronic compression deformities within the lumbar spine as described a jay. 3. Degenerative and postoperative changes as described above. ACT 112: Negative or not required by law. Electronically signed by: Jef Jade M.D. 01/20/2021 7:36 PM
[2021-01-20] MEDS: traZODone HCL 100 MG TAB PO SCH (21:06)
[2021-01-21] MEDS: HYDROmorphone INJ 0.5 MG/0.5 ML SYR IV PRN ×3 (01:06→19:30)
[2021-01-21] MEDS: HYDROcodone/ACETAMINOPHEN 10/325 TAB PO PRN ×2 (07:57→16:33)
[2021-01-21] MEDS: ONDANSETRON INJ 2 MG/ML 2 ML VIAL IV PRN ×2 (07:57→19:30)
[2021-01-21] MEDS: busPIRone 15 MG TAB PO SCH ×3 (08:50→19:35)
[2021-01-21] MEDS: MELOXICAM 7.5 MG TAB PO SCH (08:51)
[2021-01-21] MEDS: lisinopril 40 MG TAB PO SCH (08:51)
[2021-01-21] MEDS: ATORVASTATIN 20 MG TAB PO SCH (08:51)
[2021-01-21] MEDS: CHOLECALCIFEROL 1,000 UNITS 25 MCG TAB PO SCH (08:51)
[2021-01-21] MEDS: MULTIVITAMIN TAB PO SCH (08:51)
[2021-01-21] MEDS: ASPIRIN 81 MG ECTAB PO SCH (08:52)
[2021-01-21] MEDS: NICOTINE 21 MG/24 HR TDSY TD SCH (08:52)
[2021-01-21] MEDS: POLYETHYLENE (MIRALAX) 17 GM PACK PO SCH (08:52)
[2021-01-21] MEDS: VENLAFAXINE HCL XR 75 MG CAPXR PO SCH (08:52)
--- NOTE | 2021-01-21 12:13 | Orthopedic Progress Note ---
Date of Service January 21, 2021 Assessment & Plan (1) Compression fx, lumbar spine: Admission and Anticipated Discharge Date Admission Date: January 19, 2021 At this time the patient is in extreme discomfort and would like to pursue surgical intervention. She does have evidence of an acute L3 compression fracture. We have discussed kyphoplasty. She would like to pursue this. We will make her n.p.o. after midnight and hopefully p.o. perform surgery tomorrow. Subjective Patient complaining of severe back pain with bilateral leg pain. It is not improved since admission. She has difficulty sitting for more than 5 to 10 minutes secondary to axial back pain. Physical Exam Physical Exam: On exam she is in bed. She is neurologic intact to testing lower extremities. She is marked discomfort with logroll and sitting up secondary to back pain. Results & Data ([facility]) Vital Signs (Past 12 Hours) Vital Signs Temp Pulse Resp BP Pulse Ox 01/21/21 07:37 36.7 C 68 17 109/69 90 (1) Compression fx, lumbar spine Encounter type: initial encounter Lumbar vertebra fracture level: L3 Qualified Code(s): S32.030A - Wedge compression fracture of third lumbar vertebra, initial encounter for closed fracture
[2021-01-21] MEDS: BACLOFEN 10 MG TAB PO PRN (13:14)
[2021-01-21] MEDS: hydrOXYzine HCl 25 MG TAB PO PRN ×2 (15:32→21:41)
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
--- NOTE | 2021-01-21 17:13 | Hospitalist Progress Note ---
Date of Service January 21, 2021 Assessment & Plan (1) Intractable back pain: (2) Compression fracture: Acute L3 compression fracture Intractable back pain Plan for kyphoplasty tomorrow -MRI Lumbar Spine:An acute mild inferior endplate compression fracture at L3. No associated retropulsion. No change in the additional chronic compression deformities within the lumbar spine Appreciate Orthopedics Input Pain Control PT/OT Continue bowel regimen (3) Essential hypertension: BP Stable continue lisinopril (4) Anxiety: (5) Depression: continue home medications Tobacco use disorder Continue nicotine patch Counseled to quit smoking (6) DVT prophylaxis: SCDs for now Code Status Full code Disposition PT/OT prior to discharge Admission and Anticipated Discharge Date Admission Date: January 19, 2021 Subjective Patient seen and examined at bedside States having low back pain Also reports constipation Denies chest pain, dyspnea, dizziness, nausea, abdominal pain Offers no new complaints Review of Systems Review of Systems: All systems reviewed & are unremarkable except as noted in HPI & below Physical Exam Physical Exam: Physical Exam: Vitals signs as noted above General Appearance:Obese, no apparent distress Head: normocephalic, Atraumatic Eyes: normal inspection, EOMI Neck: supple, Trachea midline Respiratory/Chest: Normal breath sounds, CTA Cardiovascular: S1, S2, No murmur Abdomen/GI:Soft, Non tender, Bowel sounds present Extremities/Musculoskeletal:normal inspection, no edema Neurologic/Psych:AAOX3, grossly no focal neurological deficits Skin: normal color, warm Results & Data Results & Data ([facility]) Vital Signs (Past 12 Hours) Vital Signs Temp Pulse Resp BP Pulse Ox 01/21/21 14:52 37.0 C 71 17 111/68 90 01/21/21 07:37 36.7 C 68 17 109/69 90
[2021-01-21] MEDS: traZODone HCL 100 MG TAB PO SCH (19:35)
[2021-01-21] MEDS ORDERED: DOCUSATE SODIUM 100 MG CAP PO ONE (19:41)
[2021-01-21] MEDS: DOCUSATE SODIUM 100 MG CAP PO SCH (19:42)
[2021-01-22] MEDS: HYDROmorphone INJ 0.5 MG/0.5 ML SYR IV PRN ×3 (04:29→17:00)
[2021-01-22] MEDS: ONDANSETRON INJ 2 MG/ML 2 ML VIAL IV PRN (04:29)
[2021-01-22] MEDS: POLYETHYLENE (MIRALAX) 17 GM PACK PO SCH (09:41)
[2021-01-22] MEDS: NICOTINE 21 MG/24 HR TDSY TD SCH (09:43)
[2021-01-22] MEDS: ATORVASTATIN 20 MG TAB PO SCH (09:44)
[2021-01-22] MEDS: ASPIRIN 81 MG ECTAB PO SCH (09:45)
[2021-01-22] MEDS: busPIRone 15 MG TAB PO SCH ×3 (09:45→20:48)
[2021-01-22] MEDS: MULTIVITAMIN TAB PO SCH (09:45)
[2021-01-22] MEDS: CHOLECALCIFEROL 1,000 UNITS 25 MCG TAB PO SCH (09:45)
[2021-01-22] MEDS: VENLAFAXINE HCL XR 75 MG CAPXR PO SCH (09:45)
[2021-01-22] MEDS: lisinopril 40 MG TAB PO SCH ×2 (09:45→10:13)
[2021-01-22] MEDS: DOCUSATE SODIUM 100 MG CAP PO SCH ×2 (09:45→20:49)
[2021-01-22] MEDS: MELOXICAM 7.5 MG TAB PO SCH ×2 (09:45→10:17)
[2021-01-22] MEDS: hydrOXYzine HCl 25 MG TAB PO PRN ×2 (10:17→13:02)
[2021-01-22] MEDS ORDERED: fentaNYL citrate 100 MCG/2 ML VIAL ONE (13:30)
[2021-01-22] MEDS ORDERED: MIDAZOLAM HCL 1 MG/ML 2ML VIAL ONE (13:30)
[2021-01-22] MEDS ORDERED: ePHEDrine sulfate 50 MG/ML AMP IV PRN (13:51)
[2021-01-22] MEDS ORDERED: ONDANSETRON INJ 2 MG/ML 2 ML VIAL IV PRN ×2 (13:51→16:46)
[2021-01-22] MEDS ORDERED: ATROPINE SULFATE 0.1 MG/ML 10ML SYR IV PRN (13:51)
[2021-01-22] MEDS ORDERED: fentaNYL citrate 100 MCG/2 ML VIAL IV PRN (13:51)
--- NOTE | 2021-01-22 14:23 | History & Physical Bridge Note ---
Date of Service January 22, 2021 History & Physical Bridge Note I have examined the patient, reviewed the History & Physical and in the interval since the performance of the History & Physical I have noted the following changes of clinical significance: no changes noted Kyphoplasty with biopsy L3
[2021-01-22] MEDS ORDERED: CLINDAMYCIN 600 MG/54 ML D5W IV ONE (14:29)
[2021-01-22] MEDS ORDERED: BUPIVACAINE/EPINEPHRINE 0.5% MPF 1:200,000 30 ML VIAL ONE (14:38)
[2021-01-22] MEDS ORDERED: CLINDAMYCIN 600 MG/54 ML BAG IV SCH (14:45)
[2021-01-22] MEDS ORDERED: NEOSTIGMINE METHYLSULFATE 1 MG/ML 10ML VIAL ONE (15:31)
[2021-01-22] MEDS ORDERED: ROCURONIUM BROMIDE 10 MG/ML 5 ML VIAL IV ONE (15:31)
[2021-01-22] MEDS ORDERED: IOPAMIDOL INJ 61% 15 ML VIAL INSTIL ONE (15:31)
[2021-01-22] MEDS ORDERED: LARYING-O-JET KIT (LTA) ONE (15:31)
[2021-01-22] MEDS ORDERED: ONDANSETRON INJ 2 MG/ML 2 ML VIAL ONE (15:31)
[2021-01-22] MEDS ORDERED: PHENYLEPHRINE 100MCG/ML 5ML SYR ONE (15:31)
[2021-01-22] MEDS ORDERED: ePHEDrine sulfate 50 MG/ML SYR ONE (15:31)
[2021-01-22] MEDS ORDERED: DEXAMETHASONE SOD INJ 4 MG/ML VIAL ONE (15:31)
[2021-01-22] MEDS ORDERED: PROPOFOL IV EMULSION 10 MG/ML 20 ML VIAL IV ONE (15:31)
[2021-01-22] MEDS ORDERED: LIDOCAINE HCL 2% 2 ML VIAL/AMP(20MG/ML) INFIL ONE (15:31)
[2021-01-22] MEDS ORDERED: GLYCOPYRROLATE 0.2 MG/ML VIAL ONE (15:31)
--- NOTE | 2021-01-22 15:52 | Operative Report ---
Post Operative Report Pre & Post Diagnosis Operation Date: 01/22/21 07:00 Pre-Op Diagnosis: COMPRESSION FRACTURE Post-Op Diagnosis: COMPRESSION FRACTURE I identified the patient and participated in the time-out.: Yes Procedure Operation Date: 01/22/21 07:00 Actual Procedures #1 kyphoplasty L3 vertebral body. #2 biopsy of L3 vertebral body. Surgeon Juan David Arias, DO Automatic Drill Operator None Estimated Blood Loss 10 Findings Consistent with Post-Op Diagnosis Specimens Biopsy of L3 vertebral body Indications This is a 65-year-old female presents with marked decline in status secondary to fall at home. She was unable to tolerate transfers and ambulation secondary to severe axial back pain and subsequently here for surgical intervention. Description of Procedure Patient met with identified informed consent obtained. Patient was then taken to the operative suite underwent a patient placed in prone position the Abelardo table chest padded bolsters. All bony prominences well-padded eyes inspected to ensure no external pressure placed upon the. This point the lumbar spine was prepped and draped in a sterile fashion. With the assistance of fluoroscopy in AP and lateral planes identified the L3 vertebral body and 2 small incisions were placed just lateral to the pedicles. 2 Kyphon working cannulas were then placed by way of a transpedicular approach into the L3 vertebral body. A core biopsy was then obtained. I then placed two 20 mm Kyphon balloons within the vertebral body. These were sequentially inflated. They were subsequently removed and approximately 6 cc of Kyphon cement injected with fluoroscopic visualization. Demonstrated excellent fill and interdigitation. The working cannulas were then removed and the incisions closed with subcutaneous Monocryl. Sterile dressing was placed. The patient was then awakened and taken to PACU in stable condition. I attest to the content of the Intraoperative Record and any orders documented therein. Any exceptions are noted below.
--- NOTE | 2021-01-22 16:22 | Fluoroscopy Report ---
INTRAOPERATIVE RADIOGRAPHS CLINICAL HISTORY: L3 kyphoplasty. Fluoroscopy time: 91 seconds. FINDINGS: 10 spot fluoroscopic views of the thoracolumbar spine are presented. Kyphoplasty cement is noted in T12 and L1. Interpedicular screws are placed at L3 and kyphoplasty cement is injected into t he vertebral body. IMPRESSION: Intraoperative images from L3 kyphoplasty as above. Electronically signed by: Nikolas Ricks M.D. 01/22/2021 4:20 PM
--- NOTE | 2021-01-22 16:42 | Anesthesiology Progress Note ---
Date of Service January 22, 2021 Anesthesia Post Procedure Vital Signs Vital Signs: Temp Pulse Pulse Resp BP Pulse Ox 01/22/21 16:25 36.4 C L 60 16 130/77 99 01/22/21 16:15 72 16 120/65 96 01/22/21 16:05 74 16 152/85 H 96 01/22/21 15:58 36.0 C L 77 16 137/80 99 01/22/21 14:11 36.6 C 70 18 134/69 91 01/22/21 07:23 36.9 C 75 18 109/70 93 01/21/21 22:34 36.7 C 72 16 98/59 L 98 Pain Intensity Back: Pain Intensity: 8 Transfer of Care Handoff Completed per policy Notes Mental Status: alert / awake / arousable and participated in evaluation Patient Amnestic to Procedure: Yes Nausea / Vomiting: adequately controlled Pain: adequately controlled Airway Patency, RR, SpO2: stable & adequate BP & HR: stable & adequate Hydration State: stable & adequate Anesthetic Complications: no major complications apparent and Pt Satisfied with anesthetic care
[2021-01-22] MEDS ORDERED: FAMOTIDINE 20 MG TAB PO PRN (16:46)
[2021-01-22] MEDS ORDERED: DO NOT ADMINISTER PNEUMOCOCCAL VACCINE PRN (16:46)
[2021-01-22] MEDS ORDERED: NALOXONE HCL 0.4 MG/1 ML VIAL/CARP IV PRN (16:46)
[2021-01-22] MEDS ORDERED: MAGNESIUM HYDROXIDE SUSP 30 ML UDC PO PRN (16:46)
[2021-01-22] MEDS ORDERED: DO NOT ADMINISTER FLU VACCINE PRN (16:46)
[2021-01-22] MEDS ORDERED: LORazepam 0.5 MG TAB PO PRN (16:46)
[2021-01-22] MEDS ORDERED: SOD PHOSPHATE/SOD BIPHOSPHATE ENEMA 132 ML BTL PR PRN (16:46)
[2021-01-22] MEDS ORDERED: LACTATED RINGER'S 1,000 ML IV SCH (16:46)
[2021-01-22] MEDS ORDERED: ACETAMINOPHEN 1,000 MG/100 ML VIAL IV PRN (16:46)
[2021-01-22] MEDS ORDERED: LORazepam 0.5 MG/1 ML VIAL IV PRN (16:46)
[2021-01-22] MEDS ORDERED: ALUMINUM/MAGNESIUM SUSP 30 ML UDC PO PRN (16:46)
[2021-01-22] MEDS ORDERED: hydrOXYzine HCl 25 MG TAB PO PRN (16:46)
[2021-01-22] MEDS ORDERED: PROMETHAZINE HCL 12.5 MG in SODIUM CHLORIDE 0.9% 50 ML IV PRN (16:46)
[2021-01-22] MEDS ORDERED: diphenhydrAMINE Capsule 25 MG CAP PO PRN (16:46)
[2021-01-22] MEDS ORDERED: METOCLOPRAMIDE HCL INJ 5 MG/ML 2 ML VIAL IV PRN (16:46)
[2021-01-22] MEDS ORDERED: ONDANSETRON 4 MG OD TAB PO PRN (16:46)
--- NOTE | 2021-01-22 18:27 | Hospitalist Progress Note ---
Date of Service January 22, 2021 Assessment & Plan (1) Intractable back pain: (2) Compression fracture: Acute L3 compression fracture Intractable back pain -MRI Lumbar Spine:An acute mild inferior endplate compression fracture at L3. No associated retropulsion. No change in the additional chronic compression deformities within the lumbar spine S/P kyphoplasty L3 vertebral body POD#0 Appreciate Orthopedics Input Pain Control PT/OT Continue bowel regimen Monitor for postop anemia (3) Essential hypertension: BP Stable continue lisinopril (4) Anxiety: (5) Depression: continue home medications Tobacco use disorder Continue nicotine patch Counseled to quit smoking (6) DVT prophylaxis: SCDs for now Code Status Full code Disposition PT/OT prior to discharge Admission and Anticipated Discharge Date Admission Date: January 19, 2021 Subjective Patient seen and examined at bedside Plan for kyphoplasty today Continues to complain of back pain Was nauseous earlier today which resolved Denies chest pain, dyspnea, dizziness, nausea, abdominal pain Review of Systems Review of Systems: All systems reviewed & are unremarkable except as noted in HPI & below Physical Exam Physical Exam: Physical Exam: Vitals signs as noted above General Appearance:Obese, no apparent distress Head: normocephalic, Atraumatic Eyes: normal inspection, EOMI Neck: supple, Trachea midline Respiratory/Chest: Normal breath sounds, CTA Cardiovascular: S1, S2, No murmur Abdomen/GI:Soft, Non tender, Bowel sounds present Extremities/Musculoskeletal:normal inspection, no edema Neurologic/Psych:AAOX3, grossly no focal neurological deficits Skin: normal color, warm Results & Data Results & Data ([facility]) Vital Signs (Past 12 Hours) Vital Signs Temp Pulse Pulse Pulse Resp BP Pulse Ox 01/22/21 18:10 36.7 C 69 17 111/69 90 01/22/21 17:29 36.6 C 64 17 130/73 93 01/22/21 16:25 36.4 C L 60 16 130/77 99 01/22/21 16:15 72 16 120/65 96 01/22/21 16:05 74 16 152/85 H 96 01/22/21 15:58 36.0 C L 77 16 137/80 99 01/22/21 14:11 36.6 C 70 18 134/69 91 01/22/21 07:23 36.9 C 75 18 109/70 93
[2021-01-22] MEDS: BACLOFEN 10 MG TAB PO PRN (20:46)
[2021-01-22] MEDS: HYDROcodone/ACETAMINOPHEN 10/325 TAB PO PRN (20:47)
[2021-01-22] MEDS: traZODone HCL 100 MG TAB PO SCH (20:50)
[2021-01-22] MEDS ORDERED: DOCUSATE SODIUM/SENNA 50/8.6MG TAB PO SCH (21:00)
[2021-01-23] MEDS: ACETAMINOPHEN 500 MG TAB PO PRN ×2 (00:48→10:45)
[2021-01-23] MEDS: POLYETHYLENE (MIRALAX) 17 GM PACK PO SCH ×3 (06:28→12:21)
[2021-01-23] MEDS: DOCUSATE SODIUM 100 MG CAP PO SCH (08:37)
[2021-01-23] MEDS: MELOXICAM 7.5 MG TAB PO SCH (08:37)
[2021-01-23] MEDS: lisinopril 40 MG TAB PO SCH (08:37)
[2021-01-23] MEDS: VENLAFAXINE HCL XR 75 MG CAPXR PO SCH (08:38)
[2021-01-23] MEDS: MULTIVITAMIN TAB PO SCH (08:38)
[2021-01-23] MEDS: CHOLECALCIFEROL 1,000 UNITS 25 MCG TAB PO SCH (08:39)
[2021-01-23] MEDS: ASPIRIN 81 MG ECTAB PO SCH (08:39)
[2021-01-23] MEDS: ATORVASTATIN 20 MG TAB PO SCH (08:39)
[2021-01-23] MEDS: NICOTINE 21 MG/24 HR TDSY TD SCH (08:39)
[2021-01-23] MEDS: busPIRone 15 MG TAB PO SCH ×2 (08:40→13:13)
[2021-01-23] MEDS: HYDROcodone/ACETAMINOPHEN 10/325 TAB PO PRN ×2 (08:43→16:46)
[2021-01-23 08:54] LABS: Hematocrit (blood only) 38.3 % (37-47); Hemoglobin 13.2 g/dL (12.0-16.0); Mean Corpuscular Hemoglobin 30.6 pg (25-34); Mean Corpuscular Hgb Conc 34.5 g/dL (32-36); Mean Corpuscular Volume 88.9 fL (80-100); Mean Platelet Volume 8.9 fL (7.4-10.4); Platelet Count 316 K/uL (130-400); RDW Coefficient of Variation 12.9 % (11.5-14.5); RDW Standard Deviation 42.3 fL (36.4-46.3); Red Blood Count 4.31 M/uL (4.2-5.4); White Blood Count 15.61 K/uL (4.8-10.8)
[2021-01-23 09:08] LABS: BUN Creatinine Ratio 21.3 (10-20); Calcium 9.3 mg/dl (8.5-10.1); Creatinine Clr Calc Pharmacy 84.6 ml/min; Est GFR (African American) 105.1; Est GFR (Non-African American) 90.7; Potassium 4.5 mmol/L (3.5-5.1)
[2021-01-23] MEDS: BACLOFEN 10 MG TAB PO PRN (12:26)
--- NOTE | 2021-01-23 14:13 | Orthopedic Progress Note ---
Date of Service January 23, 2021 Assessment & Plan (1) Compression fx, lumbar spine: Admission and Anticipated Discharge Date Admission Date: January 19, 2021 Patient has done very nicely after kyphoplasty. She is quite comfortable. She is safe to return home per orthopedics. Subjective Patient's back pain is much improved. Physical Exam Physical Exam: On exam she appears very comfortable. She is strength testing. Results & Data ([facility]) Vital Signs (Past 12 Hours) Vital Signs Temp Pulse Resp BP Pulse Ox 01/23/21 07:45 36.6 C 74 16 115/64 95 01/23/21 03:48 36.6 C 65 17 113/64 92 (1) Compression fx, lumbar spine Encounter type: initial encounter Lumbar vertebra fracture level: L3 Qualified Code(s): S32.030A - Wedge compression fracture of third lumbar vertebra, initial encounter for closed fracture
--- NOTE | 2021-01-23 14:20 | Hospitalist Progress Note ---
Date of Service January 23, 2021 Assessment & Plan (1) Intractable back pain: (2) Compression fracture: Acute L3 compression fracture Intractable back pain -MRI Lumbar Spine:An acute mild inferior endplate compression fracture at L3. No associated retropulsion. No change in the additional chronic compression deformities within the lumbar spine S/P kyphoplasty L3 vertebral body POD#1 Appreciate Orthopedics Input Pain Control Continue PT/OT Continue bowel regimen Hb stable Leukocytosis postop expected (3) Essential hypertension: BP Stable continue lisinopril (4) Anxiety: (5) Depression: continue home medications Tobacco use disorder Continue nicotine patch Counseled to quit smoking (6) DVT prophylaxis: SCDs for now Code Status Full code Disposition PT/OT prior to discharge Admission and Anticipated Discharge Date Admission Date: January 19, 2021 Subjective Patient seen and examined at bedside States feeling much better today No significant back pain Denies chest pain, dyspnea, dizziness, nausea, abdominal pain Offers no other complaints Review of Systems Review of Systems: All systems reviewed & are unremarkable except as noted in HPI & below Physical Exam Physical Exam: Physical Exam: Vitals signs as noted above General Appearance:Obese, no apparent distress Head: normocephalic, Atraumatic Eyes: normal inspection, EOMI Neck: supple, Trachea midline Respiratory/Chest: Normal breath sounds, CTA Cardiovascular: S1, S2, No murmur Abdomen/GI:Soft, Non tender, Bowel sounds present Back: Surgical site in dressing Extremities/Musculoskeletal:normal inspection, no edema Neurologic/Psych:AAOX3, grossly no focal neurological deficits Skin: normal color, warm Results & Data Results & Data ([facility]) Vital Signs (Past 12 Hours) Vital Signs Temp Pulse Resp BP Pulse Ox 01/23/21 07:45 36.6 C 74 16 115/64 95 01/23/21 03:48 36.6 C 65 17 113/64 92 Laboratory Results Short CBC 01/23/21 Range/Units 08:08 WBC 15.61 H (4.8-10.8) K/uL Hgb 13.2 (12.0-16.0) g/dL Hct 38.3 (37-47) % Plt Count 316 (130-400) K/uL BMP 01/23/21 08:08 Sodium 136 Potassium 4.5 Chloride 106 Carbon Dioxide 24 BUN 15 Creatinine 0.69 Glucose 102 H Calcium 9.3
--- NOTE | 2021-01-23 14:34 | Discharge Summary ---
Date of Service January 23, 2021 Admission HPI Per Admitting Provider 65-year-old female with PMH HTN, tobacco abuse, chronic back pain, anxiety, depression, and other problems to below who presents to the ED for evaluation of back pain. Patient reports that about 5 days ago, she noted pain and swelling in her left knee. She reports that she was having difficulty placing weight on her left knee. Yesterday, patient reports that her chronic back pain acutely worsened with back spasms. This continued into today. Patient reports that she was attempting to get out of bed to use the bathroom and both of her legs felt very weak and she slid down to the ground. She reports hitting her right shoulder and right knee. Reports left knee pain and swelling has since resolved. She denies any current discomfort in her right shoulder or right knee. No loss of bowel or bladder function. Denies striking her head, lightheadedness, dizziness, loss of conscious. No chest pain or shortness of breath. Denies abdominal pain, nausea, vomiting, diarrhea. No other recent illnesses, fevers, chills. She denies urinary symptoms. In the ED, CT lumbar spine shows fracture of the inferior endplate of L3. Patient received Dilaudid 1 mg IV x 2 doses. Reports pain is currently tolerable. Admission Exam Per Admitting Provider Physical Exam Constitutional: WD/WN, vitals as above Eyes: PERRL, conjunctivae normal, anicteric sclerae ENMT: external ear and nose normal, oropharynx normal Respiratory: normal respiratory effort; no respiratory distress Auscultation: + diminished lung sounds Cardiovascular: Rate/Rhythm: regular rate and regular rhythm Vessels: normal peripheral pulses Extremities: no edema Gastrointestinal (Abdomen): normal bowel sounds, soft, nontender, no hepatosplenomegaly Musculoskeletal: no cyanosis or clubbing, extremities motor strength 5/5 Skin: no rashes, warm and dry Neurologic: PERRL, EOMI, accommodation nl, no face palsy, no dysarthria Psychiatric: A+Ox3, euthymic affect Principal Diagnosis Acute Lumbar compression fracture Discharge Data Allergies Allergy/AdvReac Type Severity Reaction Status Date / Time Iodinated Contrast Media Allergy Intermediate facial Verified 01/19/21 18:54 swelling [facility] 08/04/19 Penicillins Allergy Unknown SWELLING Verified 01/19/21 18:54 EVERY[facility] Consultations 01/19/21 17:56 ED Decision to Admit Stat 01/19/21 19:34 Consult Orthopedic Surgery Routine Procedures Performed Operation Date: 01/22/21 07:00 Actual Procedures p Kyphoplasty of L3 with biopsy(Not Applicable) - Juan David Arias DO Ordered Studies 01/19/21 14:21 CT cervical spine wo con Stat CT head/brain wo con Stat CT lumbar spine wo con Stat 01/19/21 16:04 CT abd pelvis wo con Stat 01/20/21 12:57 MR lumbar spine wo con Routine 01/22/21 14:00 FL lumbar spine 2-3V Routine MRI Lumbar Spine:An acute mild inferior endplate compression fracture at L3. No associated retropulsion. No change in the additional chronic compression deformities within the lumbar spine Hospital Course (1) Intractable back pain: (2) Compression fracture: Acute L3 compression fracture Intractable back pain -MRI Lumbar Spine:An acute mild inferior endplate compression fracture at L3. No associated retropulsion. No change in the additional chronic compression deformities within the lumbar spine S/P kyphoplasty L3 vertebral body POD#1 Appreciate Orthopedics Input Pain Control Continue PT/OT Continue bowel regimen Hb stable Leukocytosis postop expected (3) Essential hypertension: BP Stable continue lisinopril (4) Anxiety: (5) Depression: continue home medications Tobacco use disorder Continue nicotine patch Counseled to quit smoking (6) DVT prophylaxis: SCDs for now Code Status Full code Disposition Home Total Time Total Time Spent Total Time Spent (In Minutes): 42 minutes Total Time Includes: Examination of the Patient, Discharge Planning, Medication Reconciliation, Communication With Other Providers and Other Discharge Plan Discharge Items Patient Disposition: Home - Self-Care Reason For Visit: COMPRESSION FRACTURE Discharge Diagnosis: Acute Lumbar compression fracture Activity: Per Instructions section Lifting: No more than 5 pounds Bathing: No limitations Weightbearing: Full weightbearing Non-emergency contact: Primary Care Provider and Surgeon Call non-emergency contact if: you have any medication questions, your symptoms worsen, your pain is concerning for you and you have a fever Follow-up/Referrals: Juan David Arias DO [Surgeon] - 02/05/21 12:00 pm Zion Guzman MD [Primary Care Provider] - (Date & Time 01/28/2021 11:00 AM Provider Zion Guzman III, MD Department [facility] ) Diet: Heart Healthy Addtl Attending Provider Instructions: Follow-up with your primary care physician Dr. Guzman in 1 week Follow-up with your surgeon Dr. 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 This is primarily for comfort. She is to follow-up in my office in approximately 2 weeks. Pending Studies at Discharge: No Stand-Alone Forms: My [facility], Opioid Pain Management, Smoking Cessation Medications and DC Order Prescriptions: Continued aspirin [Aspirin Low Dose] 81 mg Tablet,Delayed Release (Dr/Ec) 81 mg PO QAM RF: 0 baclofen 10 mg Tablet 10 mg PO TID PRN (Reason: Muscle Spasm/Pain) RF: 0 buspirone 15 mg Tablet 15 mg PO TID RF: 0 cholecalciferol (vitamin D3) 2,000 unit Tablet 2,000 units PO QAM RF: 0 trazodone 50 mg Tablet 100 mg PO HS RF: 0 venlafaxine 225 mg Tablet Extended Release 24hr 225 mg PO QAM RF: 0 atorvastatin 20 mg tablet 20 mg PO QAM RF: 0 lisinopril 40 mg tablet 40 mg PO QAM RF: 0 ondansetron 4 mg tablet,disintegrating 4 mg PO Q8H PRN (Reason: Nausea) RF: 0 fluticasone propionate [Flonase Allergy Relief] 50 mcg/actuation [place],Suspension 2 spray INTRANASAL DAILY PRN (Reason: Congestion) RF: 0 meloxicam 15 mg tablet 15 mg PO DAILY RF: 0 lidocaine [Lidoderm] 5 % adhesive patch,medicated 1 patch TOP DAILY PRN (Reason: pain) Qty: 15 RF: 0 promethazine 25 mg tablet 25 mg PO TID PRN (Reason: nausea and vomiting) Qty: 9 RF: 0 hydroxyzine HCl 25 mg Tablet 25 mg PO Q6H PRN (Reason: anxiety) Qty: 30 RF: 0 multivitamin Tablet 1 tab PO DAILY RF: 0 hydrocodone-acetaminophen 10-325 mg tablet 1 tab PO Q8H PRN (Reason: Pain) RF: 0 Discharge Orders: Discharge Order (Routine); Ordered 01/23/21 Ordered By: Teja Humphries/Other Patient Handouts: Exercises to Prevent Falls Admission Data Admit Date/Time: 01/19/21 17:58 Attending Provider: Teja Ludwig Admit Provider: Juan David Arias Primary Care Provider: Zion Guzman Other Providers: Niki Dhaliwal ; Juan David Arias Other Interventions: Discharge Summary Assessment (RN) Last Done: 01/23/21 14:42
[2021-01-23] MEDS ORDERED: HEPARIN SOD 5,000 UNIT/0.5 ML VIAL SQ SCH (21:00)
[2021-01-24] MEDS ORDERED: bisacodyL 10 MG SUPP PR PRN (15:54)
--- NOTE | 2021-02-03 12:29 | Coding Query ---
CODING QUERY To promote full compliance with coding requirements relating to patient care, provider participation is requested in all cases of death surveys coder uncertainty. Please assist us with the question(s) below: Coding Question(s): Acute Lumbar Compression Fracture is documented. Please specify below, in your clinical opinion, to specify the compression fracture. ( x ) Acute Lumbar Compression Fracture - Traumatic Fracture ( ) Acute Lumbar Compression Fracture - Nontraumatic Fracture/Collapse, vertebrae ( ) Acute Lumbar Compression Fracture - Pathological Fracture ( ) Acute Lumbar Compression Fracture - Other: Please Specify Physician's Response(s): Thank you Cassandra Loera Principal Diagnosis: "that condition established after study, to be chiefly responsible for occasioning the admission of the patient to the hospital for care." Co-Existing Principal Diagnosis: "when two or more diagnoses equally meet the criteria for principal diagnosis as determined by the circumstances of admission, diagnostic work up, and/or therapy provided, and the Alphabetic Index, Tabular List, or another coding guideline does not provide sequencing direction, any one of the diagnoses may be sequenced first." "When the physician has documented what appears to be a current diagnosis in the body of the record, but has not included the diagnosis in the final diagnostic statement, the physician should be asked whether the diagnosis should be added." (Source Coding Clinic 2 QTR90. p3-4) [id number]
== END 2021-01-23 18:07 | disposition home or self-care (01) | DRG 479 ==
LOC: ED 13:47 → SUATTDRO 17:58 → 3W 17:58

== ENCOUNTER 2021-11-14 10:55 | Observation (INO) ==
[2021-11-14] MEDS ORDERED: ONDANSETRON 4 MG OD TAB PO STA (11:20)
[2021-11-14] MEDS ORDERED: HYDROmorphone INJ 0.5 MG/0.5 ML SYR IV STA ×3 (11:20→16:41)
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
[2021-11-14 12:49] LABS: Basophils # (auto) 0.04 K/uL (0-0.2); Basophils % (auto) 0.3 %; Eosinophils # (auto) 0.61 K/uL (0-0.5); Eosinophils % (auto) 4.9 %; Hematocrit (blood only) 39.1 % (37-47); Hemoglobin 12.8 g/dL (12.0-16.0); Immature Granulocytes # (auto) 0.04 K/uL (0.00-0.02); Immature Granulocytes % (auto) 0.3 %; Lymphocytes # (auto) 2.56 K/uL (1.2-3.4); Lymphocytes % (auto) 20.6 %; Mean Corpuscular Hemoglobin 30.8 pg (25-34); Mean Corpuscular Hgb Conc 32.7 g/dL (32-36); Mean Platelet Volume 8.7 fL (7.4-10.4); Monocytes # (auto) 0.87 K/uL (0.11-0.59); Neutrophils # (auto) 8.29 K/uL (1.4-6.5); Neutrophils % (auto) 66.9 %; Platelet Count 361 K/uL (130-400); RDW Coefficient of Variation 14.3 % (11.5-14.5); RDW Standard Deviation 49.2 fL (36.4-46.3); Red Blood Count 4.16 M/uL (4.2-5.4); White Blood Count 12.41 K/uL (4.8-10.8)
[2021-11-14] MEDS ORDERED: LORazepam 1 MG TAB SL STA (13:05)
[2021-11-14 13:11] LABS: BUN Creatinine Ratio 19.6 (10-20); C Reactive Protein 1.87 mg/dl (0-0.5); Calcium 8.9 mg/dl (8.5-10.1); Creatinine Clr Calc Pharmacy 105.6 ml/min; Est GFR (African American) 111.8 ml/min; Est GFR (Non-African American) 96.5 ml/min; Potassium 4.3 mmol/L (3.5-5.1)
[2021-11-14] MEDS ORDERED: GADOBUTROL 10ML VIAL IV ONE (15:13)
--- NOTE | 2021-11-14 15:37 | Magnetic Resonance Report ---
CERVICAL SPINE MRI WITH AND WITHOUT CONTRAST HISTORY: Neck pain s/p surgery eval for abscess TECHNIQUE: Multiplanar multisequence MRI of the cervical spine was performed both before and after th e use of intravenous contrast. COMPARISON STUDY: MR cervical spine 11/07/2021. FINDINGS: Straightening the cervical spine. Interval C3-C4 laminectomy and posterior fusion from C3 t hrough C6. Anterior cervical discectomy and fusion at C4-C7 is again noted. Small amount of fluid at the C3-C4 laminectomy site which extends to the soft tissues posterior to the C7 spinous process. Thi s is best seen on sagittal image 9. This fluid collection measures approximately 7.3 x 1.6 x 1.4 cm a nd is primarily along the incision site. Mild enhancement within the soft tissues posterior to the ne ck and surrounding this fluid collection. No definite epidural fluid collections identified. Small fo max fluid collection anterior to the C3 vertebral body within the prevertebral soft tissues which jose cruz sures 13 x 10 x 4 mm. This is best seen on sagittal image 6. There is mild prevertebral edema measuri ng up to 5 mm in thickness. There is also mild enhancement within the prevertebral soft tissues from the C2-C7 levels. The visualized posterior fossa is unremarkable. No fracture or subluxation within t he cervical spine. There is straightening of the cervical spine. Slight expansion and focal T2 hyperi ntensity within the cervical spinal cord at the C3-C4 level. Mild thickening and enhancement within t he posterior epidural lining at the C3-C4 level adjacent to the laminectomy site. This favors postope rative change. Remaining cervical spinal cord is within normal limits. C2-C3: No significant central canal narrowing. Mild bilateral neural foraminal narrowing, unchanged. C3-C4: No significant central canal narrowing due to the posterior decompression. There is moderate t o severe bilateral neural foraminal narrowing due to the uncovertebral and facet hypertrophy. C4-C5: No significant central canal narrowing. There is mild left-sided neural foraminal narrowing. C5-C6: No significant central canal narrowing. There is moderate left and mild right neural foraminal narrowing. C6-C7: No significant central canal narrowing. Severe left and mild right neural foraminal narrowing. C7-T1: No significant central canal or neural foraminal narrowing. IMPRESSION: 1. Interval posterior decompression at C3-C4 with posterior fusion from C3 through C6. The central ca nal stenosis at this level has resolved in the interval. 2. There is slight expansion and focal increased T2 signal within the cervical spinal cord at the C3- C4 level. The T2 hyperintense signal within the cervical spinal cord at this level was likely present on the prior study and therefore favors a discogenic myelomalacia. Consider one month follow-up to e nsure resolution of the slight cord expansion. 3. Elongated fluid collection at the laminectomy site and posterior incision of the neck as described above. This favors a postoperative seroma. Secondary infection is considered less likely but would b e impossible to exclude by imaging. 4. Mild edema enhancement within the prevertebral soft tissues including a focal 13 x 10 x 4 mm fluid collection anterior to the C3 vertebral body. This is nonspecific given the recent postoperative martha nge. Again, a small prevertebral abscess would be impossible to exclude by imaging alone. 5. No epidural fluid collections identified. 6. Additional findings as described above. ACT 112: Negative or not required by law. Electronically signed by: Jef Jade M.D. 11/14/2021 3:36 PM
[2021-11-14] MEDS ORDERED: KETOROLAC TROMETHAMINE 15 MG/ML VIAL IV ONE (16:54)
[2021-11-14] MEDS ORDERED: HYDROmorphone INJ 0.5 MG/0.5 ML SYR ONE (16:55)
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
[2021-11-14] MEDS ORDERED: ALUMINUM/MAGNESIUM SUSP 30 ML UDC PO PRN (19:48)
[2021-11-14] MEDS ORDERED: POLYETHYLENE (MIRALAX) 17 GM PACK PO PRN (19:48)
[2021-11-14] MEDS ORDERED: ONDANSETRON INJ 2 MG/ML 2 ML VIAL IV PRN (19:48)
[2021-11-14] MEDS ORDERED: MAGNESIUM HYDROXIDE SUSP 30 ML UDC PO PRN (19:48)
[2021-11-14] MEDS ORDERED: SODIUM CHLORIDE 0.9% 1000ML 1,000 ML IV SCH (20:00)
[2021-11-14] MEDS: HYDROmorphone INJ 0.5 MG/0.5 ML SYR IV PRN (20:53)
[2021-11-14] MEDS: traZODone HCL 100 MG TAB PO SCH (21:00)
[2021-11-14] MEDS: ACETAMINOPHEN 500 MG TAB PO SCH (21:00)
[2021-11-14] MEDS: NORTRIPTYLINE HCL 25 MG CAP PO SCH (21:00)
[2021-11-15] MEDS: KETOROLAC TROMETHAMINE 15 MG/ML VIAL IV PRN ×4 (00:45→22:46)
[2021-11-15] MEDS: HYDROmorphone INJ 0.5 MG/0.5 ML SYR IV PRN ×3 (06:24→21:02)
[2021-11-15 07:03] LABS: Albumin Globulin Ratio 1.4 (0.9-2); Albumin Level 3.6 gm/dl (3.4-5.0); BUN Creatinine Ratio 28.3 (10-20); Bilirubin,Total 0.3 mg/dl (0.2-1.0); Calcium 8.7 mg/dl (8.5-10.1); Creatinine Clr Calc Pharmacy 96.8 ml/min; Est GFR (African American) 109.3 ml/min; Est GFR (Non-African American) 94.3 ml/min; Globulin 2.5 gm/dl (2.5-4.0); Total Protein 6.1 gm/dl (6.0-8.3)
[2021-11-15 07:19] LABS: Basophils # (auto) 0.05 K/uL (0-0.2); Basophils % (auto) 0.4 %; Eosinophils # (auto) 0.78 K/uL (0-0.5); Eosinophils % (auto) 6.6 %; Hematocrit (blood only) 40.2 % (37-47); Hemoglobin 13.1 g/dL (12.0-16.0); Immature Granulocytes # (auto) 0.05 K/uL (0.00-0.02); Immature Granulocytes % (auto) 0.4 %; Lymphocytes % (auto) 26.4 %; Mean Corpuscular Hemoglobin 30.4 pg (25-34); Mean Corpuscular Volume 93.3 fL (80-100); Mean Platelet Volume 8.8 fL (7.4-10.4); Monocytes # (auto) 1.02 K/uL (0.11-0.59); Monocytes % (auto) 8.7 %; Neutrophils # (auto) 6.74 K/uL (1.4-6.5); Neutrophils % (auto) 57.5 %; Platelet Count 332 K/uL (130-400); RDW Coefficient of Variation 14.1 % (11.5-14.5); RDW Standard Deviation 47.9 fL (36.4-46.3); Red Blood Count 4.31 M/uL (4.2-5.4); White Blood Count 11.74 K/uL (4.8-10.8)
[2021-11-15 07:32] LABS: Mean Corpuscular Hgb Conc 32.6 g/dL (32-36)
[2021-11-15] MEDS: ACETAMINOPHEN 500 MG TAB PO SCH ×4 (07:41→19:43)
[2021-11-15 07:43] LABS: Potassium 4.8 mmol/L (3.5-5.1)
[2021-11-15] MEDS ORDERED: INFLUENZA VACCINE HIGH DOSE PF 65+ 0.7 ML SYR IM ONE (09:00)
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
[2021-11-15] MEDS: VENLAFAXINE HCL XR 75 MG CAPXR PO SCH (09:59)
[2021-11-15] MEDS: VENLAFAXINE HCL XR 37.5 MG CAPXR PO SCH (09:59)
[2021-11-15] MEDS: lisinopril 40 MG TAB PO SCH (09:59)
[2021-11-15] MEDS: ATORVASTATIN 20 MG TAB PO SCH (10:00)
[2021-11-15] MEDS: AMITRIPTYLINE HCL 25 MG TAB PO SCH ×2 (10:22→19:43)
[2021-11-15] MEDS: NICOTINE 21 MG/24 HR TDSY TD SCH (10:22)
--- NOTE | 2021-11-15 11:15 | Hospitalist Progress Note ---
Date of Service November 15, 2021 Assessment & Plan (1) Post-operative pain: (2) Pain of right lower extremity: (3) S/P cervical spinal fusion: (4) Hypomagnesemia: (5) Ambulatory dysfunction: Plan: This is a 66-year-old female who has a significant past medical history of 5 prior lumbar surgeries and 2 prior cervical surgeries, HTN, HLD, prediabetes, history of lumbar compression fracture, MDD, tobacco abuse who presents to ED secondary to inability to care for self postoperatively and right lower extremity leg pain and inability to walk. Patient is status post C3-C4 decompression with posterior fusion of C2-C6 by Dr. Clint Madrigal on 11/08/2021. She was discharged from [facility] on 11/12/2021. Upon returning home having difficulty caring for self due to weakness in upper extremities and lack of dexterity as well as significant right lower extremity pain and inability to walk. History of lumbar surgeries x5, history of prior neck surgeries x2. D/W Dr Arias, will see, Try Elavil BID C spine MRI: 1.Interval posterior decompression at C3-C4 with posterior fusion from C3 through C6. The central canal stenosis at this level has resolved in the interval. 2. There is slight expansion and focal increased T2 signal within the cervical spinal cord at the C3-C4 level. The T2 hyperintense signal within the cervical spinal cord at this level was likely present on the prior study and therefore favors a discogenic myelomalacia. Consider one month follow-up to ensure resolution of the slight cord expansion. 3. Elongated fluid collection at the laminectomy site and posterior incision of the neck as described above. This favors a postoperative seroma. Secondary infection is considered less likely but would be impossible to exclude by imaging. 4. Mild edema enhancement within the prevertebral soft tissues including a focal 13 x 10 x 4 mm fluid collection anterior to the C3 vertebral body. This is nonspecific given the recent postoperative change. Again, a small prevertebral abscess would be impossible to exclude by imaging alone. 5. No epidural fluid collections identified. Status post cervical surgery by Dr. Clint Madrigal, [facility] on 11/08 Uncontrolled postoperative neck pain MedSurg Consult PT/OT, Ortho Spine Continue oxycodone 5 mg every 4 hours as needed for moderate pain IV Dilaudid 0.5 mg every 6 hours for severe pain IV Toradol 15 mg every 6 hours as needed for moderate pain Baclofen as needed for muscle spasm Consult pain management for further assistance CRP 1.87, WBC 12.41, afebrile No signs of infection at this point in time, monitor closely Right lower extremity pain Possibly secondary to above , also history of prior lumbar surgery consider lumbar spine mri if not improving No bowel or bladder anesthesia/incontinence Consult orthopedic spine -patient is established with Dr. Arias with prior surgeries in the past Depression with anxiety Continue Effexor and trazodone HTN Continue lisinopril HLD Continue atorvastatin DVT prophylaxis: SCD/teds, avoid chemical prophylaxis for now in setting of recent spine surgery, reassess daily Dispo: MedSurg, case management consulted, patient requesting rehab placement for further assistance Full code PCP Dr. Thomas PALACIOS-No Headache, No Visual Changes, No Nausea, No Vomiting, No Fever, No Chills, No Neck Pain or Stiffness, No Chest Pain, No Palpitations, No SOB, No POMPA, No Cough, No Sputum, No Wheezing, No Abdominal Pain, No Diarrhea, No Hematemesis, No Hemoptysis, No Unexpected Weight Loss, No Flank pain, No Melena, No Hematochezia, No Frequency, No Urgency, No Burning, No Hematuria, No Rashes, No Diaphoresis. Appetite is Normal, c/o neck and RLE pain. Physical Exam Gen-AAO x 3, NAD, Afebrile, +Cervical Collar, Obese Head-NCAT, EOMI, PERRLA, Anicteric Sclera, No Posterior Pharyngeal Erythema Neck-Supple, No JVD, No Thyromegaly, No Masses, No LAD, No Bruits Lungs-Clear to Auscultation Bilaterally, No Rales, No Rhonchi, No Wheezing, No Crepitus Chest-No S4, +S1, +S2, No S3, No Murmurs, No Rubs, No Gallops, No Ectopy Abdomen-Soft, Bowel Sounds Present, Non Tender, Non Distended, No Hepatomegaly, No Splenomegaly, No Palpable Masses, No Rebound, No Rigidity, No Guarding Musculoskeletal-Full Range of Motion Bilaterally, No CVAT Extremities-No Cyanosis, No Clubbing, No Edema Nuero-Cranial Nerves II-XII grossly intact, Motor WNL, DTRs WNL, Strength WNL, Non Focal Psych-Normal Mood Admission and Anticipated Discharge Date Admission Date: November 14, 2021 Results & Data Results & Data ([facility]) Vital Signs (Past 12 Hours) Vital Signs Temp Pulse Resp BP Pulse Ox 11/15/21 07:25 36.4 C L 67 14 143/83 H 95
[2021-11-15] MEDS: hydrOXYzine HCl 25 MG TAB PO PRN (15:32)
[2021-11-15] MEDS ORDERED: COUGH DROP (SUGAR FREE) LOZ 24 LOZ/1 BOX BUCCAL ONE (16:37)
[2021-11-15] MEDS: oxyCODONE HCL IR 5 MG TAB (IMMEDIATE RELEASE) PO PRN (16:59)
[2021-11-15] MEDS: BACLOFEN 10 MG TAB PO PRN (19:42)
[2021-11-15] MEDS: traZODone HCL 100 MG TAB PO SCH (19:42)
[2021-11-15] MEDS: NORTRIPTYLINE HCL 25 MG CAP PO SCH (19:43)
[2021-11-16] MEDS: hydrOXYzine HCl 25 MG TAB PO PRN ×2 (00:22→13:06)
[2021-11-16] MEDS: oxyCODONE HCL IR 5 MG TAB (IMMEDIATE RELEASE) PO PRN ×4 (02:14→18:14)
[2021-11-16 06:29] LABS: Hemoglobin 12.7 g/dL (12.0-16.0); Mean Corpuscular Hemoglobin 29.8 pg (25-34); Mean Corpuscular Hgb Conc 32.6 g/dL (32-36); Mean Corpuscular Volume 91.5 fL (80-100); Mean Platelet Volume 8.7 fL (7.4-10.4); Platelet Count 355 K/uL (130-400); RDW Coefficient of Variation 13.8 % (11.5-14.5); Red Blood Count 4.26 M/uL (4.2-5.4); White Blood Count 9.82 K/uL (4.8-10.8)
[2021-11-16 06:48] LABS: Calcium 8.9 mg/dl (8.5-10.1); Creatinine Clr Calc Pharmacy 96.8 ml/min; Est GFR (African American) 109.3 ml/min; Est GFR (Non-African American) 94.3 ml/min; Potassium 4.2 mmol/L (3.5-5.1)
[2021-11-16] MEDS: ACETAMINOPHEN 500 MG TAB PO SCH ×4 (07:40→19:48)
[2021-11-16] MEDS: NICOTINE 21 MG/24 HR TDSY TD SCH (07:42)
[2021-11-16] MEDS: AMITRIPTYLINE HCL 25 MG TAB PO SCH (07:51)
[2021-11-16] MEDS: VENLAFAXINE HCL XR 75 MG CAPXR PO SCH (07:51)
[2021-11-16] MEDS: VENLAFAXINE HCL XR 37.5 MG CAPXR PO SCH (07:52)
[2021-11-16] MEDS: ATORVASTATIN 20 MG TAB PO SCH (07:52)
[2021-11-16] MEDS: lisinopril 40 MG TAB PO SCH (07:52)
[2021-11-16] MEDS: BACLOFEN 10 MG TAB PO PRN ×2 (08:40→19:48)
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
[2021-11-16] MEDS: HYDROmorphone INJ 0.5 MG/0.5 ML SYR IV PRN ×2 (10:27→20:13)
[2021-11-16] MEDS: NORTRIPTYLINE HCL 25 MG CAP PO SCH (19:49)
[2021-11-16] MEDS: traZODone HCL 100 MG TAB PO SCH (19:50)
[2021-11-17] MEDS: oxyCODONE HCL IR 5 MG TAB (IMMEDIATE RELEASE) PO PRN ×5 (02:05→21:48)
[2021-11-17] MEDS: HYDROmorphone INJ 0.5 MG/0.5 ML SYR IV PRN (07:32)
[2021-11-17] MEDS: ACETAMINOPHEN 500 MG TAB PO SCH ×4 (07:39→20:25)
[2021-11-17] MEDS: ATORVASTATIN 20 MG TAB PO SCH (07:39)
[2021-11-17] MEDS: lisinopril 40 MG TAB PO SCH (07:40)
[2021-11-17] MEDS: VENLAFAXINE HCL XR 75 MG CAPXR PO SCH (07:40)
[2021-11-17] MEDS: VENLAFAXINE HCL XR 37.5 MG CAPXR PO SCH (07:41)
[2021-11-17] MEDS: NICOTINE 21 MG/24 HR TDSY TD SCH (09:05)
[2021-11-17] MEDS: BACLOFEN 10 MG TAB PO PRN ×3 (09:06→23:25)
[2021-11-17] MEDS: hydrOXYzine HCl 25 MG TAB PO PRN (09:14)
--- NOTE | 2021-11-17 15:11 | Hospitalist Progress Note ---
Date of Service November 17, 2021 Assessment & Plan (1) Post-operative pain: (2) Pain of right lower extremity: (3) S/P cervical spinal fusion: (4) Hypomagnesemia: (5) Ambulatory dysfunction: Plan: This is a 66-year-old female who has a significant past medical history of 5 prior lumbar surgeries and 2 prior cervical surgeries, HTN, HLD, prediabetes, history of lumbar compression fracture, MDD, tobacco abuse who presents to ED secondary to inability to care for self postoperatively and right lower extremity leg pain and inability to walk. Patient is status post C3-C4 decompression with posterior fusion of C2-C6 by Dr. Clint Madrigal on 11/08/2021. She was discharged from [facility] on 11/12/2021. Upon returning home having difficulty caring for self due to weakness in upper extremities and lack of dexterity as well as significant right lower extremity pain and inability to walk. History of lumbar surgeries x5, history of prior neck surgeries x2. C spine MRI: 1.Interval posterior decompression at C3-C4 with posterior fusion from C3 through C6. The central canal stenosis at this level has resolved in the interval. 2. There is slight expansion and focal increased T2 signal within the cervical spinal cord at the C3-C4 level. The T2 hyperintense signal within the cervical spinal cord at this level was likely present on the prior study and therefore favors a discogenic myelomalacia. Consider one month follow-up to ensure resolution of the slight cord expansion. 3. Elongated fluid collection at the laminectomy site and posterior incision of the neck as described above. This favors a postoperative seroma. Secondary infection is considered less likely but would be impossible to exclude by imaging. 4. Mild edema enhancement within the prevertebral soft tissues including a focal 13 x 10 x 4 mm fluid collection anterior to the C3 vertebral body. This is nonspecific given the recent postoperative change. Again, a small prevertebral abscess would be impossible to exclude by imaging alone. 5. No epidural fluid collections identified. Status post cervical surgery by Dr. Clint Madrigal, [facility] on 11/08 Uncontrolled postoperative neck pain Consult PT/OT, Ortho Spine Pain management consult Current regimen: Oxycodone 10 mg every 4 hours as needed, baclofen 10 mg 3 times daily as needed, Dilaudid 0.5 mg every 6 hours as needed for breakthrough (has been requiring about 1 dose/day) Postoperative seroma shown on cervical spine MRI -per spine Ortho, it is noncompressive and does not require surgical intervention. Right lower extremity pain Improving Possibly secondary to above, also history of prior lumbar surgery consider lumbar spine mri if not improving No bowel or bladder anesthesia/incontinence Depression with anxiety Continue Effexor and trazodone HTN Continue lisinopril HLD Continue atorvastatin DVT prophylaxis: SCD/teds, avoid chemical prophylaxis for now in setting of recent spine surgery, reassess daily Dispo: Initially patient was requesting rehab however is considering going home with home health. Possible discharge home tomorrow. Admission and Anticipated Discharge Date Admission Date: November 16, 2021 Supervising Physician Co-Signing Physician Notes I saw this patient with the Nurse Practitioner, I formulated the assessment and plan personally with the Nurse Practitioner went over it with the patient. Physical Exam Gen-AAO x 3, NAD, Afebrile, Neck in collar Head-NCAT, EOMI, PERRLA, Anicteric Sclera, No Posterior Pharyngeal Erythema Neck-Supple, No JVD, No Thyromegaly, No Masses, No LAD, No Bruits Lungs-Clear to Auscultation Bilaterally, No Rales, No Rhonchi, No Wheezing, No Crepitus Chest-No S4, +S1, +S2, No S3, No Murmurs, No Rubs, No Gallops, No Ectopy Abdomen-Soft, Bowel Sounds Present, Non Tender, Non Distended, No Hepatomegaly, No Splenomegaly, No Palpable Masses, No Rebound, No Rigidity, No Guarding Musculoskeletal-Full Range of Motion Bilaterally, No CVAT Extremities-No Cyanosis, No Clubbing, No Edema Nuero-Cranial Nerves II-XII grossly intact, Motor WNL, DTRs WNL, Strength WNL, Non Focal Psych-Normal Mood Subjective Patient seen and examined. Follow-up for postoperative cervical neck pain. Patient reports she continues to improve. States " my pain is really well controlled". Upper extremity weakness and numbness still present however improving. Ambulating to the bathroom independently. Denies chest pain shortness of breath. No abdominal pain or nausea. Urinating and having bowel movement without difficulty. Review of Systems Review of Systems: ROS per HPI, all other systems reviewed and negative Physical Exam Constitutional: WD/WN, vitals as above Neck: Cervical collar in place, anterior neck dressing CDI, strength 4/5 BLUE Respiratory: normal respiratory effort, lungs clear to auscultation Cardiovascular: Rate/Rhythm: regular rate and regular rhythm Vessels: normal peripheral pulses Extremities: no edema Gastrointestinal (Abdomen): Percussion/Palpation: abdomen soft; abdomen nontender Skin: no rashes, warm and dry Neurologic: no focal motor deficits Psychiatric: A+Ox3, euthymic affect Results & Data Results & [facility] Vital Signs (Past 12 Hours) Vital Signs Temp Pulse Resp BP Pulse Ox 11/17/21 14:17 36.9 C 81 18 112/72 95 11/17/21 07:44 36.6 C 69 18 113/69 95
[2021-11-17] MEDS: traZODone HCL 100 MG TAB PO SCH (20:26)
[2021-11-17] MEDS: NORTRIPTYLINE HCL 25 MG CAP PO SCH (20:26)
[2021-11-18] MEDS: HYDROmorphone INJ 0.5 MG/0.5 ML SYR IV PRN (01:00)
[2021-11-18] MEDS: oxyCODONE HCL IR 5 MG TAB (IMMEDIATE RELEASE) PO PRN ×2 (07:25→11:47)
[2021-11-18] MEDS: VENLAFAXINE HCL XR 75 MG CAPXR PO SCH (07:25)
[2021-11-18] MEDS: ATORVASTATIN 20 MG TAB PO SCH (07:26)
[2021-11-18] MEDS: VENLAFAXINE HCL XR 37.5 MG CAPXR PO SCH (07:26)
[2021-11-18] MEDS: ACETAMINOPHEN 500 MG TAB PO SCH ×2 (07:27→15:36)
[2021-11-18] MEDS: lisinopril 40 MG TAB PO SCH (07:27)
[2021-11-18] MEDS: NICOTINE 21 MG/24 HR TDSY TD SCH (07:29)
[2021-11-18] MEDS: BACLOFEN 10 MG TAB PO PRN (11:47)
--- NOTE | 2021-11-18 17:16 | Discharge Summary ---
Date of Service November 18, 2021 Admission HPI Per Admitting Provider This is a 66-year-old female who has a significant past medical history of 5 prior lumbar surgeries and 2 prior cervical surgeries, HTN, HLD, prediabetes, history of lumbar compression fracture, MDD, tobacco abuse who presents to ED secondary to inability to care for self postoperatively and right lower extremity leg pain and inability to walk. Approximately 1 week ago patient bent over to pick something up in the kitchen and when she went to stand up she felt a, "pop in her back." Due to extreme weakness of bilateral upper extremities and leg pain she opted to present to ED on 11/08/2021. MRI was performed in ED which revealed large posterior disc herniation with severe central canal stenosis at C3-C4 along with mild edema to the cervical cord. She was referred to [facility] for surgical intervention due to her back surgeon being off-duty. She underwent a surgical intervention on 11/[address] Clint Madrigal. She underwent a C3-C4 ACDF with tricortical allograft placement, C3 laminectomy, C2-C6 posterior segment instrumentation, C3-4 arthrodesis and morselized local autograft. He tolerated the procedure well and only had 100 mL EBL. She was then discharged to home on 11/12/21. Since being home she had significant difficulty taking care of self including brushing hair and teeth due to weakness and lack of dexterity in the upper extremities. She has also had difficulty controlling her pain despite taking nortriptyline, Tylenol and oxycodone. She does have family that lives with her but is unable to assist her with everything she needs. She is very tearful and feels she was discharged too soon and is wishing to go to rehab. She woke up this morning with severe pain to her right lower extremity and inability to walk due to significant pain and therefore came to ED. Currently she denies any fever, chills, sweats, lightheadedness, dizziness, chest pain, shortness of breath, cough, hemoptysis, nausea, vomiting, abdominal pain, bowel or bladder incontinence, saddle anesth esia, change in bowel or urinary habits. Her last bowel movement was this morning. In ED she remained hemodynamically stable. Cervical spine MRI was ordered which revealed compression of C3-C4 and posterior fusion from C3-C6 with result resolution of the central canal stenosis. There was concern for fluid collections concerning for seroma but cannot rule out vertebral abscess. Her ESR and CRP were mildly elevated. She was recommended for admission, PT OT consults and possibly rehab placement. ER provider did discuss case with Dr. Martínez of [facility] neurosurgery who felt images likely secondary to seroma and not abscess. Did not feel transfer warranted at this time. Admission Exam Per Admitting Provider Constitutional: WD/WN, vitals as above, appears in pain, very tearful, sitting up in bed, answers questions appropriately Head: Normocephalic, Atraumatic, [place] J collar in place Eyes: PERRL, conjunctivae normal, anicteric sclerae ENMT: external ear and nose normal, oropharynx normal Neck: trachea midline, no thyromegaly normal visual inspection Respiratory: normal respiratory effort, lungs clear to auscultation, no wheeze, rales, rhonchi. Normal insp/exp effort, no accessory muscle use Cardiovascular: RRR, no murmur, no edema Vessels: no JVD or carotid bruit Chest: normal inspection of chest Abdomen: normal bowel sounds, soft, nontender, no hepatosplenomegaly Musculoskeletal: no cyanosis or clubbing, active range of motion to bilateral upper extremities, strength 4 out of 5 bilaterally, decreased director global sales strength right greater than left, active range of motion and strength intact left lower extremity. Unable to examine right lower extremity due to patient intolerable secondary to pain. Sensation intact bilaterally. Skin: no rashes, warm and dry normal turgor Neurologic: PERRL, EOMI, accommodation nl, no face palsy, no dysarthria CN's II-XI intact bilaterally and moves all extremities Psychiatric: A+Ox3, euthymic affect : deferred Principal Diagnosis Intractable neck pain, s/p cervical surgery Discharge Exam Constitutional WD/WN, vitals as above Neck Cervical collar in place, anterior neck dressing CDI Respiratory normal respiratory effort, lungs clear to auscultation Cardiovascular Rate/Rhythm: regular rate and regular rhythm Vessels: normal peripheral pulses Extremities: no edema Gastrointestinal (Abdomen) Percussion/Palpation: abdomen soft; abdomen nontender Musculoskeletal Strength equal, 4/5 BLUE Skin no rashes, warm and dry Neurologic no focal motor deficits Psychiatric A+Ox3, euthymic affect Discharge Data Allergies Allergy/AdvReac Type Severity Reaction Status Date / Time Iodinated Contrast Media Allergy Intermediate facial Verified 11/14/21 13:23 swelling [facility] 08/04/19 Penicillins Allergy Unknown SWELLING Verified 11/14/21 13:23 EVERY[facility] Consultations 11/14/21 19:48 Consult Orthopedic Surgery Routine Consult Pain Management Routine Ordered Studies Laboratory Results WBC 9.82 K/uL (4.8-10.8) 11/16/21 05:42 RBC 4.26 M/uL (4.2-5.4) 11/16/21 05:42 Hgb 12.7 g/dL (12.0-16.0) 11/16/21 05:42 Hct 39.0 % (37-47) 11/16/21 05:42 MCV 91.5 fL (80-100) 11/16/21 05:42 MCH 29.8 pg (25-34) 11/16/21 05:42 MCHC 32.6 g/dL (32-36) 11/16/21 05:42 RDW Std Deviation 46.0 fL (36.4-46.3) 11/16/21 05:42 RDW Coeff of Jimi 13.8 % (11.5-14.5) 11/16/21 05:42 Plt Count 355 K/uL (130-400) 11/16/21 05:42 MPV 8.7 fL (7.4-10.4) 11/16/21 05:42 Immature Gran % (Auto) 0.4 % 11/15/21 07:05 Neut % (Auto) 57.5 % 11/15/21 07:05 Lymph % (Auto) 26.4 % 11/15/21 07:05 [place] % (Auto) 8.7 % 11/15/21 07:05 Eos % (Auto) 6.6 % 11/15/21 07:05 Baso % (Auto) 0.4 % 11/15/21 07:05 Neut # (Auto) 6.74 K/uL (1.4-6.5) H 11/15/21 07:05 Lymph # (Auto) 3.10 K/uL (1.2-3.4) 11/15/21 07:05 [place] # (Auto) 1.02 K/uL (0.11-0.59) H 11/15/21 07:05 Eos # (Auto) 0.78 K/uL (0-0.5) H 11/15/21 07:05 Baso # (Auto) 0.05 K/uL (0-0.2) 11/15/21 07:05 Immature Gran # (Auto) 0.05 K/uL (0.00-0.02) H 11/15/21 07:05 Absolute Nucleated RBC Cancelled 11/15/21 06:06 Nucleated RBC % (auto) Cancelled 11/15/21 06:06 Neutrophils % (Manual) Cancelled 11/15/21 06:06 Band Neutrophils % Cancelled 11/15/21 06:06 Lymphocytes % (Manual) Cancelled 11/15/21 06:06 Prolymphocyte % Cancelled 11/15/21 06:06 Reactive Lymphs % (Man) Cancelled 11/15/21 06:06 Monocytes % (Manual) Cancelled 11/15/21 06:06 Eosinophils % (Manual) Cancelled 11/15/21 06:06 Basophils % (Manual) Cancelled 11/15/21 06:06 Metamyelocytes % (Man) Cancelled 11/15/21 06:06 Myelocytes % (Man) Cancelled 11/15/21 06:06 Promyelocytes % (Man) Cancelled 11/15/21 06:06 Blast Cells % (Manual) Cancelled 11/15/21 06:06 Plasma Cell % (Manual) Cancelled 11/15/21 06:06 Other Cells % Cancelled 11/15/21 06:06 Nucleated RBC % Cancelled 11/15/21 06:06 Neutrophils # (Manual) Cancelled 11/15/21 06:06 Band Neutrophils # Cancelled 11/15/21 06:06 Total Absolute Neuts Cancelled 11/15/21 06:06 Lymphocytes # (Manual) Cancelled 11/15/21 06:06 Prolymphocyte # Cancelled 11/15/21 06:06 Reactive Lymphs # Cancelled 11/15/21 06:06 Total Abs Lymphocytes Cancelled 11/15/21 06:06 Monocytes # (Manual) Cancelled 11/15/21 06:06 Eosinophils # (Manual) Cancelled 11/15/21 06:06 Basophils # (Manual) Cancelled 11/15/21 06:06 Metamyelocytes # (Man) Cancelled 11/15/21 06:06 Myelocytes # (Manual) Cancelled 11/15/21 06:06 Promyelocytes # (Man) Cancelled 11/15/21 06:06 Blast Cells # (Man) Cancelled 11/15/21 06:06 Plasma Cell # (Manual) Cancelled 11/15/21 06:06 Other Cells # Cancelled 11/15/21 06:06 Nucleated RBCs # (Man) Cancelled 11/15/21 06:06 Hypersegmented Neuts Cancelled 11/15/21 06:06 Hyposegmented Neuts Cancelled 11/15/21 06:06 Hypogranular Neuts Cancelled 11/15/21 06:06 Large Granular Lymphs Cancelled 11/15/21 06:06 # Lrg Granular Lymphs Cancelled 11/15/21 06:06 Hairy Cells Cancelled 11/15/21 06:06 Smudge Cells Cancelled 11/15/21 06:06 Toxic Granulation Cancelled 11/15/21 06:06 Toxic Vacuolation Cancelled 11/15/21 06:06 Dohle Bodies Cancelled 11/15/21 06:06 Otilia Rods Cancelled 11/15/21 06:06 Platelet Estimate Cancelled 11/15/21 06:06 Hypogranular Platelets Cancelled 11/15/21 06:06 Clumped Platelets Cancelled 11/15/21 06:06 Giant Platelets Cancelled 11/15/21 06:06 Platelet Satelliting Cancelled 11/15/21 06:06 RBC Morphology Cancelled 11/15/21 06:06 Polychromasia Cancelled 11/15/21 06:06 Hypochromasia Cancelled 11/15/21 06:06 Poikilocytosis Cancelled 11/15/21 06:06 Basophilic Stippling Cancelled 11/15/21 06:06 Anisocytosis Cancelled 11/15/21 06:06 Microcytosis Cancelled 11/15/21 06:06 Macrocytosis Cancelled 11/15/21 06:06 Spherocytes Cancelled 11/15/21 06:06 Pappenheimer Bodies Cancelled 11/15/21 06:06 Sickle Cells Cancelled 11/15/21 06:06 Target Cells Cancelled 11/15/21 06:06 Tear Drop Cells Cancelled 11/15/21 06:06 Ovalocytes Cancelled 11/15/21 06:06 Stomatocytes Cancelled 11/15/21 06:06 [place] Bodies Cancelled 11/15/21 06:06 Echinocytes Cancelled 11/15/21 06:06 Acanthocytes (Spur) Cancelled 11/15/21 06:06 Rouleaux Cancelled 11/15/21 06:06 RBC Agglutinates Cancelled 11/15/21 06:06 Schistocytes Cancelled 11/15/21 06:06 RBC Morph Comment Cancelled 11/15/21 06:06 Sezary Cell Cancelled 11/15/21 06:06 Sodium 134 mmol/L (136-145) L 11/16/21 05:42 Potassium 4.2 mmol/L (3.5-5.1) 11/16/21 05:42 Chloride 102 mmol/L (98-107) 11/16/21 05:42 Carbon Dioxide 26 mmol/L (21-32) 11/16/21 05:42 Anion Gap 6 (3-11) 11/16/21 05:42 BUN 18 mg/dl (6-23) 11/16/21 05:42 Creatinine 0.60 mg/dl (0.6-1.2) 11/16/21 05:42 Est Cr Clr Drug Dosing 96.8 ml/min 11/16/21 05:42 Est GFR ( Amer) 109.3 ml/min 11/16/21 05:42 Est GFR (Non-Af Amer) 94.3 ml/min 11/16/21 05:42 BUN/Creatinine Ratio 30.0 (10-20) H 11/16/21 05:42 Glucose 90 mg/dl (70-99(Fasting)) 11/16/21 05:42 Calcium 8.9 mg/dl (8.5-10.1) 11/16/21 05:42 Total Bilirubin 0.3 mg/dl (0.2-1.0) 11/15/21 06:06 AST 14 U/L (13-39) 11/15/21 07:13 ALT 14 U/L (7-52) 11/15/21 06:06 Alkaline Phosphatase 64 U/L (34-104) 11/15/21 06:06 C-Reactive Protein 1.87 mg/dl (0-0.5) H 11/14/21 12:20 Total Protein 6.1 gm/dl (6.0-8.3) 11/15/21 06:06 Albumin 3.6 gm/dl (3.4-5.0) 11/15/21 06:06 Globulin 2.5 gm/dl (2.5-4.0) 11/15/21 06:06 Albumin/Globulin Ratio 1.4 (0.9-2) 11/15/21 06:06 SARS-CoV-2, RNA, NAAT NEGATIVE (NEGATIVE) 11/14/21 16:15 Impressions Cervical Spine MRI 11/14/21 11:42 CERVICAL SPINE MRI WITH AND WITHOUT CONTRAST HISTORY: Neck pain s/p surgery eval for abscess TECHNIQUE: Multiplanar multisequence MRI of the cervical spine was performed both before and after the use of intravenous contrast. COMPARISON STUDY: MR cervical spine 11/07/2021. FINDINGS: Straightening the cervical spine. Interval C3-C4 laminectomy and posterior fusion from C3 through C6. Anterior cervical discectomy and fusion at C4-C7 is again noted. Small amount of fluid at the C3-C4 laminectomy site which extends to the soft tissues posterior to the C7 spinous process. This is best seen on sagittal image 9. This fluid collection measures approximately 7.3 x 1.6 x 1.4 cm and is primarily along the incision site. Mild enhancement within the soft tissues posterior to the neck and surrounding this fluid collection. No definite epidural fluid collections identified. Small focal fluid collection anterior to the C3 vertebral body within the prevertebral soft tissues which measures 13 x 10 x 4 mm. This is best seen on sagittal image 6. There is mild prevertebral edema measuring up to 5 mm in thickness. There is also mild enhancement within the prevertebral soft tissues from the C2-C7 levels. The visualized posterior fossa is unremarkable. No fracture or subluxation within the cervical spine. There is straightening of the cervical spine. Slight expansion and focal T2 hyperintensity within the cervical spinal cord at the C3- C4 level. Mild thickening and enhancement within the posterior epidural lining at the C3-C4 level adjacent to the laminectomy site. This favors postoperative change. Remaining cervical spinal cord is within normal limits. C2-C3: No significant central canal narrowing. Mild bilateral neural foraminal narrowing, unchanged. C3-C4: No significant central canal narrowing due to the posterior decompression. There is moderate to severe bilateral neural foraminal narrowing due to the uncovertebral and facet hypertrophy. C4-C5: No significant central canal narrowing. There is mild left-sided neural foraminal narrowing. C5-C6: No significant central canal narrowing. There is moderate left and mild right neural foraminal narrowing. C6-C7: No significant central canal narrowing. Severe left and mild right neural foraminal narrowing. C7-T1: No significant central canal or neural foraminal narrowing. IMPRESSION: 1. Interval posterior decompression at C3-C4 with posterior fusion from C3 through C6. The central canal stenosis at this level has resolved in the interval. 2. There is slight expansion and focal increased T2 signal within the cervical spinal cord at the C3-C4 level. The T2 hyperintense signal within the cervical spinal cord at this level was likely present on the prior study and therefore favors a discogenic myelomalacia. Consider one month follow-up to ensure resolution of the slight cord expansion. 3. Elongated fluid collection at the laminectomy site and posterior incision of the neck as described above. This favors a postoperative seroma. Secondary infection is considered less likely but would be impossible to exclude by imaging. 4. Mild edema enhancement within the prevertebral soft tissues including a focal 13 x 10 x 4 mm fluid collection anterior to the C3 vertebral body. This is nonspecific given the recent postoperative change. Again, a small prevertebral abscess would be impossible to exclude by imaging alone. 5. No epidural fluid collections identified. 6. Additional findings as described above. ACT 112: Negative or not required by law. Electronically signed by: Jef Jade M.D. 11/14/2021 3:36 PM Hospital Course (1) Post-operative pain: (2) Pain of right lower extremity: (3) S/P cervical spinal fusion: (4) Hypomagnesemia: (5) Ambulatory dysfunction: This is a 66-year-old female who has a significant past medical history of 5 prior lumbar surgeries and 2 prior cervical surgeries, HTN, HLD, prediabetes, history of lumbar compression fracture, MDD, tobacco abuse who presents to ED secondary to inability to care for self postoperatively and right lower extremity leg pain and inability to walk. Patient is status post C3-C4 decompression with posterior fusion of C2-C6 by Dr. Clint Madrigal on 11/08/2021. She was discharged from [facility] on 11/12/2021. Upon returning home having difficulty caring for self due to weakness in upper extremities and lack of dexterity as well as significant right lower extremity pain and inability to walk. History of lumbar surgeries x5, history of prior neck surgeries x2. C spine MRI: 1.Interval posterior decompression at C3-C4 with posterior fusion from C3 through C6. The central canal stenosis at this level has resolved in the interval. 2. There is slight expansion and focal increased T2 signal within the cervical spinal cord at the C3-C4 level. The T2 hyperintense signal within the cervical spinal cord at this level was likely present on the prior study and therefore favors a discogenic myelomalacia. Consider one month follow-up to ensure resolution of the slight cord expansion. 3. Elongated fluid collection at the laminectomy site and posterior incision of the neck as described above. This favors a postoperative seroma. Secondary infection is considered less likely but would be impossible to exclude by imaging. 4. Mild edema enhancement within the prevertebral soft tissues including a focal 13 x 10 x 4 mm fluid collection anterior to the C3 vertebral body. This is nonspecific given the recent postoperative change. Again, a small prevertebral abscess would be impossible to exclude by imaging alone. 5. No epidural fluid collections identified. Status post cervical surgery by Dr. Clint Madrigal, [facility] on 11/08 Uncontrolled postoperative neck pain Ortho spine, pain management, PT/OT consulted Postoperative seroma shown on cervical spine MRI -per spine Ortho, it is noncompressive and does not require surgical intervention. Pain management increased patient's nortriptyline from 25 mg to 50 mg nightly. Continue SPOT WASHER baclofen. Pain controlled with oxycodone 10 mg every 4 hours as needed. Patient was prescribed 31 oxycodone 5mg tablets from another provider on 11/12/21. She was instructed that she may take 1 to 2 tablets of these every 4 hours as needed. No further narcotic prescription was provided. Hospital bed is being arranged for the patient. The beneficiary requires positioning of the body in ways not feasible with an ordinary bed in order to alleviate pain. Right lower extremity pain Improving Possibly secondary to above, also history of prior lumbar surgery consider lumbar spine mri if not improving No bowel or bladder anesthesia/incontinence Depression with anxiety Continue Effexor and trazodone HTN Continue lisinopril HLD Continue atorvastatin delayed entry date of service noted above Attending Addendum: care coordinated with KIMBERLY Kuhn please refer to her notes for full details, I agree with her notes patient seen and examined, records reviewed by myself as well on exam, patient seen sitting up in bed, comfortable states she feels better overall neck pain well controlled no other symptoms VS noted and reviewed oriented x 3, not in distress, speaks in sentences with no effort nor accessory muscle use normal rate, regular rhythm, no murmurs clear breath sounds bilaterally non distended, soft, nontender no bipedal edema, erythema, warmth no neuro deficits ASSESSMENT AND PLAN Status post cervical surgery by Dr. Clint Madrigal, [facility] on 11/08 Uncontrolled postoperative neck pain pain medication regimen discussed with patient informed patient additional pain medication cannot be prescribed in light of findings in PDMP query patient verbalized understanding and agreement other diagnoses and plan of care as per KIMBERLY Kuhn's notes Tristin Callaway MD Total Time Total Time Spent Total Time Spent (In Minutes): 40 Discharge Plan Discharge Items Patient Disposition: Home - Home Health Services Reason For Visit: Neck Pain Discharge Diagnosis: Cervical spinal stenosis with myeloradiculopathy Activity: As commented below Non-emergency contact: Primary Care Provider Call non-emergency contact if: you have any medication questions Follow-up/Referrals: Juan David Arias, [Surgeon] - (Office will call you with follow up appointment. ) Zion Guzman MD [Primary Care Provider] - 11/23/21 11:00 am (Date & Time 11/23/2021 11:00 AM Provider Zion Guzman III, MD Department [facility] ) Diet: Heart Healthy Addtl Attending Provider Instructions: You came to the hospital for evaluation of neck pain and weakness after recent neck surgery. You were evaluated by spine orthopedics and pain management. See Dr. Arias's discharge instructions below. His office will call you to schedule a follow up appointment. Pain management increased your nortriptyline from 25mg to 50mg. You were prescribed 31 oxycodone 5mg tablets from another provider on 11/12/21. You may take 1-2 of these tablets every 4 hours. Narcotics can cause constipation. Please take Miralax daily as needed to prevent constipation. A hospital bed is also being arranged for you. ACTIVITY RECOMMENDATIONS: SELF CARE INSTRUCTIONS AFTER CERVICAL FUSIONS 1. No smoking. Smoking drastically decreases the chance of a solid fusion. 2. No bending, lifting more than 5 pounds, or twisting (roll like a log when turning in bed). 3. You may shower 3 days after surgery. Thoroughly dry wound. Do not soak in the tub. 4. Cervical collar: Must be worn at all times including sleeping. You may remove the brace only to bath, eat and if you are sitting in a recliner. 5. Please walk as much as you can for exercise. Gradually increase the distance that you walk as your endurance increases. SPECIAL CARE INSTRUCTIONS: VERY IMPORTANT TO READ AND REVIEW A. Do not take any anti-inflammatory medications (i.e. Indocin, Advil, Aspirin, Naprosyn, Aleve, Motrin, etc.) as these may inhibit the chance of a solid fusion. Tylenol is okay to take. B. Your surgical incision has been closed with a cosmetic suture under the skin that will dissolve in about 6 weeks. In 14 days, you can use a pair of clean scissors and cut the suture that is left outside of the skin at the ends of your incision. C. Complications are uncommon, but please contact us if you have any signs or symptoms of: 1. wound infection (fever higher than 102.5 degrees F, redness, separation of wound, drainage, or increasing pain from the incision) 2. blood clots in legs (pain, swelling, redness and warmth in legs) 3. urinary tract infection (fever higher than 102.5 degrees, burning upon urination or increased frequency of urination) 4. nerve problems (inability to walk on your toes or heels, numbness, loss of bowel or bladder control) 5. any other symptoms that concern you. D. Please call the office at if you have any concerns or questions about your operation or recovery. MANAGING PAIN AFTER SPINAL SURGERY 1. Narcotic medication is intended for short-term use and will be provided for surgical pain. Surgical pain usually lasts for a period of 4-6 weeks. Narcotic medication includes Percocet, Vicodin, Darvocet, Tylenol #3 or Lortab. 2. Longer-term pain is more appropriately treated with non-narcotic medication such as Tylenol ES. 3. Muscle spasm is not appropriately treated with narcotics. Muscle relaxers such as Soma, Flexeril or Skelaxin can be used along with Tylenol ES. 4. Remember that we all live with some "aches and pains". This is not unusual or uncommon after an injury or as we get older. 5. We will provide appropriate medication within the normal guidelines of their prescribed use. We will also be very cautious and aware of potential abuse and extended duration of patients' medication needs. 6. Please allow 2-3 days to process refills. Prescriptions will not be mailed but must be picked up at the office. FOLLOW UP VISIT: Keep your scheduled follow-up appointment. Any questions, please call the office at . Pending Studies at Discharge: No Stand-Alone Forms: My [facility] [place] [employer], Smoking Cessation Medications and DC Order Prescriptions: New polyethylene glycol 3350 [Miralax] 17 gram Powder In Packet 17 g PO DAILY PRN (Reason: constipation) Qty: 14 RF: 0 nortriptyline 25 mg Capsule 50 mg PO HS Qty: 60 RF: 0 Continued baclofen 10 mg Tablet 10 mg PO TID PRN (Reason: Muscle Spasm/Pain) RF: 0 trazodone 50 mg Tablet 100 mg PO HS RF: 0 venlafaxine 225 mg Tablet Extended Release 24hr 225 mg PO QAM RF: 0 atorvastatin 20 mg tablet 20 mg PO QAM RF: 0 lisinopril 40 mg tablet 40 mg PO QAM RF: 0 venlafaxine 37.5 mg capsule,extended release 24hr 37.5 mg PO QAM RF: 0 acetaminophen [Tylenol Extra Strength] 500 mg Tablet 1,000 mg PO Q8H RF: 0 hydroxyzine HCl 25 mg tablet 25 mg PO BID PRN (Reason: anxiety) RF: 0 Changed oxycodone 5 mg tablet 5 - 10 mg PO Q4H PRN (Reason: Pain) Qty: 0 RF: 0 Discontinued ondansetron 4 mg tablet,disintegrating 4 mg PO Q8H PRN (Reason: Nausea) RF: 0 triamcinolone acetonide 0.1 % Cream 1 applic TOPICAL BID PRN (Reason: AFFECTED AREAS) RF: 0 nortriptyline 25 mg capsule 25 mg PO HS RF: 0 Discharge Orders: Discharge Order (Routine); Ordered 11/18/21 Ordered By: Faustina Kuhn Admission Data Admit Date/Time: 11/14/21 17:04 Attending Provider: Tristin Callaway Admit Provider: Duong Clement Primary Care Provider: Zion Guzman Other Providers: Hayde Ricci ; [place],[facility] ; Melvina Hoffman at [place] ; Juan David Arias ; Noelle Waldron ; Duong Clement ; [place] Other Interventions: Discharge Summary Assessment (RN) Last Done: 11/18/21 14:22
== END 2021-11-18 14:47 | disposition home health service (06) | DRG 921 ==
LOC: ED 10:55 → 3E 10:55 → SUATTDRO 17:04 → 3E 18:28 → SUATTDRO 11-16 12:24

== ENCOUNTER 2022-02-10 18:16 | Observation (INO) ==
[2022-02-10] MEDS ORDERED: HYDROmorphone INJ 0.5 MG/0.5 ML SYR IV STA ×2 (19:06→22:19)
[2022-02-10] MEDS ORDERED: ONDANSETRON INJ 2 MG/ML 2 ML VIAL IV STA (19:06)
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
[2022-02-10 20:06] LABS: Basophils # (auto) 0.03 K/uL (0-0.2); Basophils % (auto) 0.3 %; Eosinophils # (auto) 0.26 K/uL (0-0.5); Eosinophils % (auto) 2.2 %; Hematocrit (blood only) 40.4 % (37-47); Hemoglobin 13.9 g/dL (12.0-16.0); Immature Granulocytes # (auto) 0.03 K/uL (0.00-0.02); Immature Granulocytes % (auto) 0.3 %; Lymphocytes # (auto) 3.57 K/uL (1.2-3.4); Lymphocytes % (auto) 30.2 %; Mean Corpuscular Hgb Conc 34.4 g/dL (32-36); Mean Platelet Volume 8.9 fL (7.4-10.4); Monocytes # (auto) 1.01 K/uL (0.11-0.59); Monocytes % (auto) 8.5 %; Neutrophils # (auto) 6.92 K/uL (1.4-6.5); Neutrophils % (auto) 58.5 %; Platelet Count 335 K/uL (130-400); RDW Coefficient of Variation 13.4 % (11.5-14.5); RDW Standard Deviation 44.3 fL (36.4-46.3); Red Blood Count 4.49 M/uL (4.2-5.4); White Blood Count 11.82 K/uL (4.8-10.8)
[2022-02-10 20:33] LABS: Albumin Globulin Ratio 1.4 (0.9-2); Albumin Level 4.1 gm/dl (3.4-5.0); BUN Creatinine Ratio 18.3 (10-20); Bilirubin,Total 0.4 mg/dl (0.2-1.0); Calcium 9.1 mg/dl (8.5-10.1); Creatinine Clr Calc Pharmacy 94.9 ml/min; Est GFR (African American) 109.3 ml/min; Est GFR (Non-African American) 94.3 ml/min; Globulin 2.9 gm/dl (2.5-4.0)
[2022-02-10] MEDS ORDERED: LORazepam 2 MG/1 ML VIAL IV STA (20:58)
[2022-02-10] MEDS ORDERED: BACLOFEN 10 MG TAB PO STA (23:10)
[2022-02-11] MEDS ORDERED: BACLOFEN 10 MG TAB PO PRN (01:57)
[2022-02-11] MEDS ORDERED: ACETAMINOPHEN 325 MG TAB PO PRN (01:57)
[2022-02-11] MEDS: HYDROmorphone INJ 0.5 MG/0.5 ML SYR IV PRN ×4 (02:56→22:45)
--- NOTE | 2022-02-11 03:50 | History and Physical Report ---
DATE OF ADMISSION: 02/11/2022. CHIEF COMPLAINT: Severe back pain, neck pain and ambulatory dysfunction. HISTORY OF PRESENT ILLNESS: This is a 66-year-old female with past medical history significant for five prior lumbar surgeries and two prior cervical surgeries, history of hypertension, hyperlipidemia, prediabetes, history of lumbar decompression, lumbar compression fracture, history of degenerative disk disease, tobacco abuse, depression, who lives at home with her son and granddaughter, who comes with severe back pain, neck pain and ambulatory dysfunction. The patient was in the ER in November with a similar problem and recently status post cervical surgery in [facility] on 11/08/2021. The patient states again after going home, she fell a couple of weeks ago in the kitchen and yesterday she was about to fall on deck, but she held on railings and she thinks at that time she twisted her neck and flared up her neck pain. She is taking a lot of pain medications and is not getting better, having difficulty ambulating. She soiled herself with two bowel movements today because she was not able to go to the bathroom because of severe pain. That is the reason she came to the ER. In the ER, her imaging studies of cervical spine and lumbar spine, in preliminary report, no acute findings. The patient is crying and she says she feels like giving up, but she wants to stay around for her granddaughter, and she wants help for the pain. Had a headache earlier that has resolved. Vision is not that great. No earache, no runny nose, no sore throat, no cough, no fever. Appetite is okay. No difficulty swallowing. No chest pain, no shortness of breath. Nausea when pain is severe. No vomiting, no abdominal pain. Normal bowel and bladder movements. No swelling in the legs, hemodynamically stable. ALLERGIES: IODINATED CONTRAST MEDIA, PENICILLINS. PAST MEDICAL HISTORY: As mentioned above. PAST SURGICAL HISTORY: Anterior cervical fusion surgery with arthroplasty, biopsy of the uterus lining, colonoscopy with biopsy, dilatation and curettage, EGDs, thoracic kyphoplasty, appendectomy, ankle fusion surgery, back surgeries, inguinal hernia repair, tibial fracture fixation, vaginal hysterectomy with left oophorectomy. MEDICATIONS: The patient is on Tylenol Extra Strength 1000 mg p.o. q. 8 hours p.r.n., atorvastatin 20 mg p.o. a.m., baclofen 10 mg p.o. t.i.d. p.r.n., hydroxyzine 25 mg p.o. b.i.d. p.r.n., lisinopril 40 mg p.o. daily, nortriptyline 50 mg p.o. at bedtime, oxycodone and acetaminophen 10/325 mg 1 tablet p.o. q. 8 hours p.r.n., MiraLax 17 g p.o. daily, trazodone 100 mg p.o. at bedtime, venlafaxine 225 mg p.o. a.m., venlafaxine 37.5 mg p.o. a.m. FAMILY HISTORY: Significant for mother had cervical cancer and dementia, hypertension; father has COPD, maternal grandmother had diabetes. SOCIAL HISTORY: , currently lives with son and granddaughter, smoked 1 pack a day for 15 years. No alcohol, no drug use. REVIEW OF SYSTEMS: As per HPI. Rest of review of systems is negative. PHYSICAL EXAMINATION: GENERAL: The patient is obese, not in acute distress. VITAL SIGNS: Temperature 36.8, pulse 68, respiratory rate 18, blood pressure 114/85, oxygen 97% on room air. HEENT: Pupils equal, round and reactive to light. Oral mucosa moist. NECK: No JVD, no neck masses. CARDIOVASCULAR: S1 and S2 heard. Regular rate and rhythm. No murmur, no gallop. RESPIRATORY SYSTEM: Normal AP diameter. No accessory muscle use. No wheezing, no crackles. ABDOMEN: Soft, bowel sounds present, nontender, no distention. CENTRAL NERVOUS SYSTEM: Cranial nerves II through XII grossly intact. Power 4/5 in all extremities. MUSCULOSKELETAL:Cervical neck surgical site clean. Able to move extremities. LABORATORY DATA: WBC 11.8, hemoglobin 13.9, hematocrit 40.4, platelets 335. Sodium 131, potassium 4, chloride 98, bicarbonate 26, BUN 11, creatinine 0.6, serum glucose 77, calcium 9.1, total bilirubin 0.4, AST 13, ALT 9, alkaline phosphatase 61. SARS-CoV-2 rapid test negative. IMAGING DATA: Lumbar spine MRI, preliminary report, no acute findings. Cervical spine MRI, preliminary report, no acute findings. ASSESSMENT AND PLAN: This is a 66-year-old female who presents with severe back pain, neck pain, and ambulatory dysfunction. 1. Severe back pain, neck pain, and severe ambulatory dysfunction: Had multiple surgeries in the back and neck, recent neck surgery in [facility] on 11/08/2021, surgical site okay. Preliminary report on imaging studies are okay, will follow the final reports. Pain control with home pain medications, also IV Dilaudid p.r.n. Will consult orthopedics and also pain management. Monitor in the medical floor. PT/OT. 2. Hypertension: Continue home medication of lisinopril. Will monitor the blood pressure. 3. Hyperlipidemia: Continue statin. 4. Depression: Continue home venlafaxine, nortriptyline. The patient is crying, feels like giving up, but says she is not giving up because of her granddaughter. Will consult psychiatry while the patient is in the hospital. 5. Prediabetes: Follow HbA1c level, diabetic diet. 6. Deep venous thrombosis prophylaxis: Lovenox. DISPOSITION: Observation in medical floor. PT, OT prior to discharge. Social service to help with discharge planning. Level 1 full code. Job ID: [id number] [facility]
[2022-02-11 07:40] LABS: Basophils # (auto) 0.03 K/uL (0-0.2); Basophils % (auto) 0.3 %; Eosinophils # (auto) 0.33 K/uL (0-0.5); Eosinophils % (auto) 2.8 %; Hematocrit (blood only) 40.2 % (37-47); Hemoglobin 13.5 g/dL (12.0-16.0); Immature Granulocytes # (auto) 0.05 K/uL (0.00-0.02); Immature Granulocytes % (auto) 0.4 %; Lymphocytes # (auto) 3.31 K/uL (1.2-3.4); Lymphocytes % (auto) 28.2 %; Mean Corpuscular Hemoglobin 30.2 pg (25-34); Mean Corpuscular Hgb Conc 33.6 g/dL (32-36); Mean Corpuscular Volume 89.9 fL (80-100); Mean Platelet Volume 8.4 fL (7.4-10.4); Monocytes # (auto) 1.11 K/uL (0.11-0.59); Monocytes % (auto) 9.5 %; Neutrophils # (auto) 6.91 K/uL (1.4-6.5); Neutrophils % (auto) 58.8 %; Platelet Count 320 K/uL (130-400); RDW Coefficient of Variation 13.5 % (11.5-14.5); RDW Standard Deviation 44.4 fL (36.4-46.3); Red Blood Count 4.47 M/uL (4.2-5.4); White Blood Count 11.74 K/uL (4.8-10.8)
[2022-02-11] MEDS: oxyCODONE/ACETAMINOPHEN 10-325 TAB PO PRN ×2 (08:37→16:08)
[2022-02-11] MEDS: VENLAFAXINE HCL XR 75 MG CAPXR PO SCH (08:38)
[2022-02-11] MEDS: POLYETHYLENE (MIRALAX) 17 GM PACK PO SCH (08:38)
[2022-02-11] MEDS: lisinopril 40 MG TAB PO SCH (08:38)
[2022-02-11] MEDS: ENOXAPARIN INJ 40 MG/0.4 ML SYR SQ SCH ×2 (08:38→20:53)
[2022-02-11] MEDS: ATORVASTATIN 20 MG TAB PO SCH (08:38)
[2022-02-11 08:42] LABS: BUN Creatinine Ratio 21.7 (10-20); Creatinine Clr Calc Pharmacy 91.2 ml/min; Est GFR (African American) 109.3 ml/min; Est GFR (Non-African American) 94.3 ml/min; Magnesium 1.9 mg/dl (1.7-2.4); Potassium 4.1 mmol/L (3.5-5.1)
[2022-02-11] MEDS ORDERED: VENLAFAXINE HCL XR 37.5 MG CAPXR PO SCH (09:00)
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
--- NOTE | 2022-02-11 09:07 | Discharge Summary ---
Date of Service February 11, 2022 Discharge Data Allergies Allergy/AdvReac Type Severity Reaction Status Date / Time Iodinated Contrast Media Allergy Intermediate facial Verified 02/11/22 00:36 swelling [facility] 08/04/19 Penicillins Allergy Unknown SWELLING Verified 02/11/22 00:36 EVERYWHERE,[facility] Consultations 02/11/22 00:22 ED Decision to Admit Stat 02/11/22 08:00 Consult Orthopedic Surgery Routine Consult Pain Management Routine Consult Psychiatry Routine Ordered Studies 02/10/22 19:06 MR cervical spine wo con Stat MR lumbar spine wo con Stat Discharge Plan Discharge Items Reason For Visit: BACK PAIN Condition on Discharge: Good Follow-up/Referrals: Zion Guzman MD [Primary Care Provider] - Medications and DC Order Prescriptions: No Action baclofen 10 mg Tablet 10 mg PO TID PRN (Reason: Muscle Spasm/Pain) RF: 0 trazodone 50 mg Tablet 100 mg PO HS RF: 0 venlafaxine 225 mg Tablet Extended Release 24hr 225 mg PO QAM RF: 0 atorvastatin 20 mg tablet 20 mg PO QAM RF: 0 lisinopril 40 mg tablet 40 mg PO QAM RF: 0 venlafaxine 37.5 mg capsule,extended release 24hr 37.5 mg PO QAM RF: 0 acetaminophen [Tylenol Extra Strength] 500 mg Tablet 1,000 mg PO Q8H RF: 0 hydroxyzine HCl 25 mg tablet 25 mg PO BID PRN (Reason: anxiety) RF: 0 oxycodone-acetaminophen 10-325 mg tablet 1 tab PO Q8H PRN (Reason: Pain) RF: 0 polyethylene glycol 3350 [Miralax] 17 gram powder in packet 17 g PO DAILY RF: 0 nortriptyline 25 mg Capsule 50 mg PO HS Qty: 60 RF: 0 Admission Data Admit Date/Time: 02/11/22 01:03 Attending Provider: Bartolome Gipson Admit Provider: Sam Pierson Primary Care Provider: Zion Guzman Other Providers: Sam Pierson ; Juan David Arias ; Jose Lopez Erica K. ; Brigida Marrero ; Amber Figueroa
[2022-02-11 09:09] LABS: Estimated Average Glucose 114 mg/dl; Hemoglobin A1C 5.6 % (4.5-5.6)
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
[2022-02-11] MEDS: hydrOXYzine HCl 25 MG TAB PO PRN ×2 (09:30→22:55)
[2022-02-11] MEDS: PREGABALIN 50 MG CAP PO SCH ×2 (10:12→20:52)
[2022-02-11] MEDS: BACLOFEN 10 MG TAB PO SCH ×3 (10:12→20:52)
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
--- NOTE | 2022-02-11 10:29 | Magnetic Resonance Report ---
MR cervical spine wo con HISTORY: 66 years-old Female neck/back pain, increased weakness. Acute weakness with chronic neck pa in. COMPARISON: MRI cervical spine 11/14/2021 TECHNIQUE: Multiplanar multisequence MRI of the cervical spine was obtained without the use of IV con trast. FINDINGS: Traffic Signal Repairer localizer images demonstrate no gross extraspinal abnormality. The study is motion degraded. Th ere is resolution of the previously described prevertebral fluid collection. Decreased fluid and germán a within the posterior soft tissues suggestive of resolving postoperative changes. No new or enlargin g fluid collections are identified. Prior C3-C4 posterior decompression with C4-C7 anterior fusion. P osterior fusion hardware is noted at C3-C6. Increased T2 signal with slight expansion of the cervical spinal cord at the level of C3-C4 is similar to the prior study. Signal within the cervical and imag ed thoracic spinal cord is otherwise unremarkable. No epidural fluid collections. C2-C3: Uncovertebral hypertrophy with small posterior annular disc bulge. The central canal is patent . Mild bilateral neural foraminal narrowing. C3-C4: Uncovertebral hypertrophy and facet arthrosis redemonstrated. The central canal is patent. Mod erate to severe bilateral neural foraminal narrowing is unchanged. C4-C5: Facet arthrosis. The central canal is patent. There is at least mild bilateral neural foramina l narrowing redemonstrated. C5-C6: Uncovertebral hypertrophy with facet arthrosis. The central canal is patent. Moderate left wit h mild right neural foraminal narrowing. C6-C7: Uncovertebral hypertrophy with posterior annular disc bulge, facet arthrosis and disc osteophy te complex. The AP dimension of the thecal sac measuring 7 mm is similar to slightly progressed from the prior study. Severe left with mild right neural foraminal narrowing is unchanged. C7-T1: Facet arthrosis. No central canal or neural foraminal narrowing. IMPRESSION: 1. Mildly motion degraded exam. 2. Prior C4-C7 fusion. Resolution of the previously described prevertebral fluid collection with decr eased fluid and edema within the posterior operative bed. There are no epidural fluid collections. 3. Increased T2 signal with slight expansion of the cervical spinal cord redemonstrated at the level of C3-C4, likely marketing representative of myelomalacia. 4. Discogenic degeneration with facet arthrosis as above. ACT 112: Negative or not required by law. The above report was generated using voice recognition software. It may contain grammatical, syntax o r spelling errors. Dictated: 02/11/2022 8:17 AM Transcribed: 02/11/2022 8:59 AM Lore [id number] [email or web address] Electronically signed by: Tyler Gonzalez M.D. 02/11/2022 10:28 AM
--- NOTE | 2022-02-11 10:29 | Magnetic Resonance Report ---
MR lumbar spine wo con CLINICAL HISTORY: 66 years-old Female with neck/back pain, increased weakness. Chronic low back pain with lower extremity weakness. COMPARISON: MR lumbar spine 11/07/2021 TECHNIQUE: Multiplanar, multi sequence MRI of the lumbar spine was performed without intravenous cont rast. FINDINGS: The damascener localizer images illustrate no gross extraspinal abnormality. There is minimal le voscoliosis of the thoracolumbar junction, apex at L2. The conus medullaris terminates at T12-L1. No acute fracture, subluxation or endplate erosions. No destructive bone lesions. No significant marrow edema. Unremarkable cauda equina. Chronic superior endplate compression is again noted throughout all of the lumbar segments. Postoperative changes posterior elements at L4. Prior kyphoplasty at T12, L1 and L3. Unchanged 5 mm L1 retropulsion. T12-L1: Spondylitic spurring with small posterior annular disc bulge. Retropulsion with posterior de compression. The central canal and neural foramen appear generally patent. L1-L2: Prior posterior decompression. Unchanged mild bilateral neural foraminal narrowing. The centr al canal is patent. L2-L3: Tiny posterior annular disc bulge, eccentric to the right is noted along with mild spondyliti c spurring and severe facet arthrosis. AP dimension of the thecal sac measures 8 mm. There is mild to moderate central canal stenosis with unchanged mild bilateral neural foraminal narrowing, right grea ter than left. The previously described left lateral disc extrusion is not definitively seen on today 's study. L3-L4: Circumferential disc osteophyte complex with ligamentum flavum thickening and severe facet ar throsis. Flattening of the ventral thecal sac without significant central canal stenosis. Unchanged s evere right with moderate to severe left neural foraminal narrowing. L4-L5: Spondylitic spurring with posterior annular disc bulge. Mild flattening of the ventral thecal sac without significant central canal stenosis. Ligamentum thickening with severe facet arthrosis. U nchanged moderate bilateral neural foraminal narrowing. L5-S1: Relative preservation of the intervertebral disc space. Tiny posterior annular disc bulge wit h moderate to severe facet arthrosis. The central canal is patent. There is unchanged mild bilateral neural foraminal narrowing. IMPRESSION: 1. No acute fracture. 2. Chronic thoracolumbar compression deformities with prior kyphoplasty. 3. Multilevel neural foraminal stenosis with mild to moderate L2-L3 central canal narrowing. 4. There is no significant change compared to the 11/07/2021 study. ACT 112: Negative or not required by law. The above report was generated using voice recognition software. It may contain grammatical, syntax o r spelling errors. Dictated: 02/11/2022 7:52 AM Transcribed: 02/11/2022 8:55 AM Lore [id number] [email or web address] Electronically signed by: Tyler Gonzalez M.D. 02/11/2022 10:28 AM
[2022-02-11] MEDS: ONDANSETRON INJ 2 MG/ML 2 ML VIAL IV PRN (11:52)
--- NOTE | 2022-02-11 14:24 | Hospitalist Progress Note ---
Date of Service February 11, 2022 Assessment & Plan (1) Neck pain: (2) Back pain: (3) Ambulatory dysfunction: (4) S/P cervical spinal fusion: Plan: This is a 66-year-old female who presents with severe back pain, neck pain, and ambulatory dysfunction. 1. Severe back pain, neck pain, and severe ambulatory dysfunction: Had multiple surgeries in the back and neck, recent neck surgery in [facility] on 11/08/2021 MRI obtained C-spine: 1. Mildly motion degraded exam. 2. Prior C4-C7 fusion. Resolution of the previously described prevertebral fluid collection with decreased fluid and edema within the posterior operative bed. There are no epidural fluid collections. 3. Increased T2 signal with slight expansion of the cervical spinal cord redemonstrated at the level of C3-C4, likely patient accounting representative of myelomalacia. 4. Discogenic degeneration with facet arthrosis as above. L-spine IMPRESSION: 1. No acute fracture. 2. Chronic thoracolumbar compression deformities with prior kyphoplasty. 3. Multilevel neural foraminal stenosis with mild to moderate L2-L3 central canal narrowing. 4. There is no significant change compared to the 11/07/2021 study. Orthopedics consulted, no surgical intervention needed at this time Continue PT OT, pain management, psychiatry consultation as well Per pain management, nortriptyline was stopped, and patient was started on Lyrica 50 twice daily, this may need to be uptitrated For now we will also continue her other medications, and 0.5 Dilaudid IV every 3 hours as needed 2. Hypertension: Continue home medication of lisinopril. Will monitor the blood pressure. 3. Hyperlipidemia: Continue statin. 4. Depression:Patient seen by psychiatry, plan to start Cymbalta, and stop Effexor 5. Prediabetes: Follow HbA1c level, diabetic diet. DVT prophylaxis: Lovenox. DISPOSITION: Observation in medical floor. PT, OT prior to discharge. Social service to help with discharge planning. Code: Full code. Admission and Anticipated Discharge Date Admission Date: February 11, 2022 Subjective Patient seen in follow-up of back pain, status post multiple spine surgeries Earlier this morning, patient was already seen by pain management, psychiatry and orthopedics Medications adjusted by psychiatry and pain management, no plan for any surgical intervention Currently patient is lying in bed, sleeping, but able to awake and answers questions appropriately Says she currently feels much better Denies any fevers, chills, chest pain, shortness of breath, abdominal pain, nausea vomiting, and reports recurrent back pain/difficulty ambulating Review of Systems Review of Systems: All systems reviewed & are unremarkable except as noted in Subjective Physical Exam Physical Exam: GENERAL: obese F , not in acute distress. HEENT: NC/AT, EOMI, Pupils equal, round and reactive to light. Oral mucosa moist. NECK: No JVD, no neck masses. CARDIOVASCULAR: S1 and S2 heard. Regular rate and rhythm. No murmur, no gallop. RESPIRATORY SYSTEM: Normal AP diameter. No accessory muscle use. No wheezing, no crackles. ABDOMEN: Soft, bowel sounds present, nontender, no distention. NEURO:Alert oriented, answering questions appropriately, no facial asymmetry, moves extremities MUSCULOSKELETAL:Cervical neck surgical site clean. Able to move extremities. Results & Data Results & Data ([facility]) Vital Signs (Past 12 Hours) Vital Signs Temp Pulse Resp BP Pulse Ox 02/11/22 07:09 36.6 C 66 17 130/81 93 Laboratory Results 02/11/22 02/11/22 02/11/22 Range/Units 07:23 07:23 07:23 WBC 11.74 H (4.8-10.8) K/uL RBC 4.47 (4.2-5.4) M/uL Hgb 13.5 (12.0-16.0) g/dL Hct 40.2 (37-47) % MCV 89.9 (80-100) fL MCH 30.2 (25-34) pg MCHC 33.6 (32-36) g/dL RDW Std Deviation 44.4 (36.4-46.3) fL RDW Coeff of Jimi 13.5 (11.5-14.5) % Plt Count 320 (130-400) K/uL MPV 8.4 (7.4-10.4) fL Immature Gran % (Auto) 0.4 % Neut % (Auto) 58.8 % Lymph % (Auto) 28.2 % [place] % (Auto) 9.5 % Eos % (Auto) 2.8 % Baso % (Auto) 0.3 % Neut # (Auto) 6.91 H (1.4-6.5) K/uL Lymph # (Auto) 3.31 (1.2-3.4) K/uL [place] # (Auto) 1.11 H (0.11-0.59) K/uL Eos # (Auto) 0.33 (0-0.5) K/uL Baso # (Auto) 0.03 (0-0.2) K/uL Immature Gran # (Auto) 0.05 H (0.00-0.02) K/uL Sodium 133 L (136-145) mmol/L Potassium 4.1 (3.5-5.1) mmol/L Chloride 101 (98-107) mmol/L Carbon Dioxide 25 (21-32) mmol/L Anion Gap 7 (3-11) BUN 13 (6-23) mg/dl Creatinine 0.60 (0.6-1.2) mg/dl Est Cr Clr Drug Dosing 91.2 ml/min Est GFR ( Amer) 109.3 ml/min Est GFR (Non-Af Amer) 94.3 ml/min BUN/Creatinine Ratio 21.7 H (10-20) Glucose 90 (70-99(Fasting)) mg/dl Estimat Average Glucose 114 mg/dl Hemoglobin A1c 5.6 (4.5-5.6) % Calcium 9.0 (8.5-10.1) mg/dl Magnesium 1.9 (1.7-2.4) mg/dl Total Bilirubin (0.2-1.0) mg/dl AST (13-39) U/L ALT (7-52) U/L Alkaline Phosphatase (34-104) U/L Total Protein (6.0-8.3) gm/dl Albumin (3.4-5.0) gm/dl Globulin (2.5-4.0) gm/dl Albumin/Globulin Ratio (0.9-2) SARS-CoV-2, RNA, NAAT (NEGATIVE) 02/10/22 02/10/22 02/10/22 Range/Units 19:20 19:16 19:16 WBC 11.82 H (4.8-10.8) K/uL RBC 4.49 (4.2-5.4) M/uL Hgb 13.9 (12.0-16.0) g/dL Hct 40.4 (37-47) % MCV 90.0 (80-100) fL MCH 31.0 (25-34) pg MCHC 34.4 (32-36) g/dL RDW Std Deviation 44.3 (36.4-46.3) fL RDW Coeff of Jimi 13.4 (11.5-14.5) % Plt Count 335 (130-400) K/uL MPV 8.9 (7.4-10.4) fL Immature Gran % (Auto) 0.3 % Neut % (Auto) 58.5 % Lymph % (Auto) 30.2 % [place] % (Auto) 8.5 % Eos % (Auto) 2.2 % Baso % (Auto) 0.3 % Neut # (Auto) 6.92 H (1.4-6.5) K/uL Lymph # (Auto) 3.57 H (1.2-3.4) K/uL [place] # (Auto) 1.01 H (0.11-0.59) K/uL Eos # (Auto) 0.26 (0-0.5) K/uL Baso # (Auto) 0.03 (0-0.2) K/uL Immature Gran # (Auto) 0.03 H (0.00-0.02) K/uL Sodium 131 L (136-145) mmol/L Potassium 4.0 (3.5-5.1) mmol/L Chloride 98 (98-107) mmol/L Carbon Dioxide 26 (21-32) mmol/L Anion Gap 7 (3-11) BUN 11 (6-23) mg/dl Creatinine 0.60 (0.6-1.2) mg/dl Est Cr Clr Drug Dosing 94.9 ml/min Est GFR ( Amer) 109.3 ml/min Est GFR (Non-Af Amer) 94.3 ml/min BUN/Creatinine Ratio 18.3 (10-20) Glucose 77 (70-99(Fasting)) mg/dl Estimat Average Glucose mg/dl Hemoglobin A1c (4.5-5.6) % Calcium 9.1 (8.5-10.1) mg/dl Magnesium (1.7-2.4) mg/dl Total Bilirubin 0.4 (0.2-1.0) mg/dl AST 13 (13-39) U/L ALT 9 (7-52) U/L Alkaline Phosphatase 61 (34-104) U/L Total Protein 7.0 (6.0-8.3) gm/dl Albumin 4.1 (3.4-5.0) gm/dl Globulin 2.9 (2.5-4.0) gm/dl Albumin/Globulin Ratio 1.4 (0.9-2) SARS-CoV-2, RNA, NAAT NEGATIVE (NEGATIVE) Medications Administered Current Inpatient Medications Acetaminophen (Acetaminophen 325 Mg Tab) 650 mg PO Q4H PRN PRN Reason: pain/fever Stop: 03/13/22 01:56 Atorvastatin Calcium (Atorvastatin 20 Mg Tab) 20 mg PO QAM COUNTS INCLUDE 234 BEDS AT THE [facility] Stop: 03/13/22 08:59 Last Admin: 02/11/22 08:38 Dose: 20 mg Documented by: Baclofen (Baclofen 10 Mg Tab) 10 mg PO TID COUNTS INCLUDE 234 BEDS AT THE [facility] Stop: 03/13/22 08:59 Last Admin: 02/11/22 10:12 Dose: 10 mg Documented by: Enoxaparin Sodium (Enoxaparin Inj 40 Mg/0.4 Ml Syr) 40 mg SQ Q12H COUNTS INCLUDE 234 BEDS AT THE [facility] Stop: 03/13/22 08:59 Last Admin: 02/11/22 08:38 Dose: 40 mg Documented by: Hydromorphone HCl (Hydromorphone Inj 0.5 Mg/0.5 Ml Syr) 0.5 mg IV Q3H PRN PRN Reason: Severe Pain Stop: 02/25/22 01:56 Last Admin: 02/11/22 10:12 Dose: 0.5 mg Documented by: Hydroxyzine HCl (Hydroxyzine Hcl 25 Mg Tab) 25 mg PO BID PRN PRN Reason: anxiety Stop: 03/13/22 01:56 Last Admin: 02/11/22 09:30 Dose: 25 mg Documented by: Lisinopril (Lisinopril 40 Mg Tab) 40 mg PO QAM COUNTS INCLUDE 234 BEDS AT THE [facility] Stop: 03/13/22 08:59 Last Admin: 02/11/22 08:38 Dose: 40 mg Documented by: Ondansetron HCl (Ondansetron Inj 2 Mg/Ml 2 Ml Vial) 4 mg IV Q6H PRN PRN Reason: Nausea Stop: 03/13/22 01:56 Last Admin: 02/11/22 11:52 Dose: 4 mg Documented by: Oxycodone/Acetaminophen (Oxycodone/Acetaminophen 10-325 Tab) 1 tab PO Q8H PRN PRN Reason: Pain Stop: 02/25/22 01:56 Last Admin: 02/11/22 08:37 Dose: 1 tab Documented by: Polyethylene Glycol (Polyethylene (Miralax) 17 Gm Pack) 17 gm PO DAILY PRN PRN Reason: Constipation Stop: 03/13/22 01:56 Polyethylene Glycol (Polyethylene (Miralax) 17 Gm Pack) 17 gm PO DAILY [facility] Stop: 03/13/22 08:59 Last Admin: 02/11/22 08:38 Dose: 17 gm Documented by: Pregabalin (Pregabalin 50 Mg Cap) 50 mg PO BID [facility] Stop: 03/13/22 08:59 Last Admin: 02/11/22 10:12 Dose: 50 mg Documented by: Trazodone HCl (Trazodone Hcl 100 Mg Tab) 100 mg PO HS COUNTS INCLUDE 234 BEDS AT THE [facility] Stop: 03/13/22 20:59 Venlafaxine HCl (Venlafaxine Hcl Xr 75 Mg Capxr) 225 mg PO QAM [facility] Stop: 03/13/22 08:59 Last Admin: 02/11/22 08:38 Dose: 225 mg Documented by:
[2022-02-11] MEDS: traZODone HCL 100 MG TAB PO SCH (20:53)
[2022-02-11] MEDS ORDERED: NORTRIPTYLINE HCL 25 MG CAP PO SCH (21:00)
[2022-02-12 06:49] LABS: BUN Creatinine Ratio 22.5 (10-20); Calcium 8.9 mg/dl (8.5-10.1); Creatinine Clr Calc Pharmacy 77.1 ml/min; Est GFR (African American) 102.2 ml/min; Est GFR (Non-African American) 88.1 ml/min; Magnesium 1.8 mg/dl (1.7-2.4); Potassium 4.8 mmol/L (3.5-5.1)
[2022-02-12] MEDS: oxyCODONE/ACETAMINOPHEN 10-325 TAB PO PRN ×2 (08:45→19:55)
[2022-02-12] MEDS: NICOTINE 21 MG/24 HR TDSY TD SCH (08:46)
[2022-02-12] MEDS: ATORVASTATIN 20 MG TAB PO SCH (08:47)
[2022-02-12] MEDS: ENOXAPARIN INJ 40 MG/0.4 ML SYR SQ SCH ×2 (08:47→21:23)
[2022-02-12] MEDS: BACLOFEN 10 MG TAB PO SCH ×3 (08:47→21:24)
[2022-02-12] MEDS: VENLAFAXINE HCL XR 75 MG CAPXR PO SCH (08:47)
[2022-02-12] MEDS: POLYETHYLENE (MIRALAX) 17 GM PACK PO SCH (08:48)
[2022-02-12] MEDS: PREGABALIN 50 MG CAP PO SCH ×2 (09:02→21:23)
[2022-02-12] MEDS: HYDROmorphone INJ 0.5 MG/0.5 ML SYR IV PRN ×3 (10:31→23:34)
[2022-02-12] MEDS: lisinopril 40 MG TAB PO SCH (11:39)
--- NOTE | 2022-02-12 13:09 | Communication Note ---
Date of Service: February 12, 2022 Interim progress reviewed. Tapering Effexor XR as listed in consult to 187.5 mg tomorrow am then 150 mg po qam on Tuesday02/14/22 with plan to start Cymbalta 30 mg daily at that time. Will defer to Dr. Jarquin for order as she is assuming clinical responsibility of service today at 1700 hrs.
[2022-02-12] MEDS: hydrOXYzine HCl 25 MG TAB PO PRN ×2 (13:13→21:23)
--- NOTE | 2022-02-12 13:25 | Hospitalist Progress Note ---
Date of Service February 12, 2022 Assessment & Plan (1) Neck pain: (2) Back pain: (3) Ambulatory dysfunction: (4) S/P cervical spinal fusion: Plan: This is a 66-year-old female who presents with severe back pain, neck pain, and ambulatory dysfunction. 1. Severe back pain, neck pain, and severe ambulatory dysfunction: Had multiple surgeries in the back and neck, recent neck surgery in on 11/08/2021 MRI obtained C-spine: 1. Mildly motion degraded exam. 2. Prior C4-C7 fusion. Resolution of the previously described prevertebral fluid collection with decreased fluid and edema within the posterior operative bed. There are no epidural fluid collections. 3. Increased T2 signal with slight expansion of the cervical spinal cord redemonstrated at the level of C3-C4, likely pharmacy services representative of myelomalacia. 4. Discogenic degeneration with facet arthrosis as above. L-spine IMPRESSION: 1. No acute fracture. 2. Chronic thoracolumbar compression deformities with prior kyphoplasty. 3. Multilevel neural foraminal stenosis with mild to moderate L2-L3 central canal narrowing. 4. There is no significant change compared to the 11/07/2021 study. Orthopedics consulted, no surgical intervention needed at this time Continue PT OT, pain management, psychiatry consultation as well Per pain management, nortriptyline was stopped, and patient was started on Lyrica 50 twice daily, this may need to be uptitrated For now we will also continue her other medications, and 0.5 Dilaudid IV every 3 hours as needed 2. Hypertension: Continue home medication of lisinopril. Will monitor the blood pressure. 3. Hyperlipidemia: Continue statin. 4. Depression:Patient seen by psychiatry, plan to start Cymbalta, and stop Effexor (titration started, plan to start Cymbalta on Tuesday, Effexor dose lowered) 5. Prediabetes: Current HbA1c 5.6%, follow diabetic diet. DVT prophylaxis: Lovenox. DISPOSITION:PT, OT prior to discharge. Code: Full code. Admission and Anticipated Discharge Date Admission Date: February 11, 2022 Subjective Patient seen in follow-up of back pain, status post multiple spine surgeries, depression Yesterday, patient was seen by pain management, psychiatry and orthopedics Medications adjusted by psychiatry and pain management, no plan for any surgical intervention Currently patient is sitting up in bed, teary. Denies any fevers, chills, chest pain, shortness of breath, abdominal pain, nausea vomiting, and reports recurrent back pain/difficulty ambulating Review of Systems Review of Systems: All systems reviewed & are unremarkable except as noted in Subjective Physical Exam Physical Exam: GENERAL: obese F , not in acute distress but teary HEENT: NC/AT, EOMI, Pupils equal, round and reactive to light. Oral mucosa moist. NECK: No JVD, no neck masses. CARDIOVASCULAR: S1 and S2 heard. Regular rate and rhythm. No murmur, no gallop. RESPIRATORY SYSTEM: Normal AP diameter. No accessory muscle use. No wheezing, no crackles. ABDOMEN: Soft, bowel sounds present, nontender, no distention. NEURO:Alert oriented, answering questions appropriately, no facial asymmetry, moves extremities MUSCULOSKELETAL:Cervical neck surgical site clean. Able to move extremities. Results & Data Results & Data ([facility]) Vital Signs (Past 12 Hours) Vital Signs Temp Pulse Resp BP Pulse Ox 02/12/22 07:01 36.6 C 68 16 105/62 90 Laboratory Results 02/12/22 Range/Units 05:34 Sodium 130 L (136-145) mmol/L Potassium 4.8 (3.5-5.1) mmol/L Chloride 99 (98-107) mmol/L Carbon Dioxide 25 (21-32) mmol/L Anion Gap 6 (3-11) BUN 16 (6-23) mg/dl Creatinine 0.71 (0.6-1.2) mg/dl Est Cr Clr Drug Dosing 77.1 ml/min Est GFR ( Amer) 102.2 ml/min Est GFR (Non-Af Amer) 88.1 ml/min BUN/Creatinine Ratio 22.5 H (10-20) Glucose 88 (70-99(Fasting)) mg/dl Calcium 8.9 (8.5-10.1) mg/dl Magnesium 1.8 (1.7-2.4) mg/dl Medications Administered Current Inpatient Medications Acetaminophen (Acetaminophen 325 Mg Tab) 650 mg PO Q4H PRN PRN Reason: pain/fever Stop: 03/13/22 01:56 [facility]orvastatin Calcium ([facility] 20 Mg [facility] [place]: 03/13/22 08:59 Last Admin: 02/12/22 08:47 Dose: 20 mg Documented by: Baclofen (Baclofen 10 Mg Tab) 10 mg PO TID [facility] Stop: 03/13/22 08:59 Last Admin: 02/12/22 13:13 Dose: 10 mg Documented by: Enoxaparin Sodium (Enoxaparin Inj 40 Mg/0.4 Ml Syr) 40 mg SQ Q12H [facility] Stop: 03/13/22 08:59 Last Admin: 02/12/22 08:47 Dose: 40 mg Documented by: Hydromorphone HCl (Hydromorphone Inj 0.5 Mg/0.5 Ml Syr) 0.5 mg IV Q3H PRN PRN Reason: Severe Pain Stop: 02/25/22 01:56 Last Admin: 02/12/22 10:31 Dose: 0.5 mg Documented by: Hydroxyzine HCl (Hydroxyzine Hcl 25 Mg Tab) 25 mg PO BID PRN PRN Reason: anxiety Stop: 03/13/22 01:56 Last Admin: 02/12/22 13:13 Dose: 25 mg Documented by: Lisinopril (Lisinopril 40 Mg Tab) 40 mg PO QAM [facility] Stop: 03/13/22 08:59 Last Admin: 02/12/22 11:39 Dose: 40 mg Documented by: Miscellaneous (Remove Nicoderm Patch) 1 ea N/A DAILY@0859 [facility] Stop: 03/14/22 08:58 Last Admin: 02/12/22 08:46 Dose: 1 ea Documented by: Nicotine (Nicotine 21 Mg/24 Hr Tdsy) 21 mg TD QAM [facility] Stop: 03/14/22 08:59 Last Admin: 02/12/22 08:46 Dose: 21 mg Documented by: Ondansetron HCl (Ondansetron Inj 2 Mg/Ml 2 Ml Vial) 4 mg IV Q6H PRN PRN Reason: Nausea Stop: 03/13/22 01:56 Last Admin: 02/11/22 11:52 Dose: 4 mg Documented by: Oxycodone/Acetaminophen (Oxycodone/Acetaminophen 10-325 Tab) 1 tab PO Q8H PRN PRN Reason: Pain Stop: 02/25/22 01:56 Last Admin: 02/12/22 08:45 Dose: 1 tab Documented by: Polyethylene Glycol (Polyethylene (Miralax) 17 Gm Pack) 17 gm PO DAILY PRN PRN Reason: Constipation Stop: 03/13/22 01:56 Polyethylene Glycol (Polyethylene (Miralax) 17 Gm Pack) 17 gm PO DAILY [facility] Stop: 03/13/22 08:59 Last Admin: 02/12/22 08:48 Dose: 17 gm Documented by: Pregabalin (Pregabalin 50 Mg Cap) 50 mg PO BID [facility] Stop: 03/13/22 08:59 Last Admin: 02/12/22 09:02 Dose: 50 mg Documented by: Trazodone HCl (Trazodone Hcl 100 Mg Tab) 100 mg PO HS [facility] Stop: 03/13/22 20:59 Last Admin: 02/11/22 20:53 Dose: 100 mg Documented by: Venlafaxine HCl (Venlafaxine Hcl Xr 37.5 Mg Capxr) 187.5 mg PO ONE ONE Stop: 02/13/22 09:01 Venlafaxine HCl (Venlafaxine Hcl Xr 150 Mg Capxr) 150 mg PO QAM [facility] Stop: 03/16/22 08:59
[2022-02-12] MEDS: ONDANSETRON INJ 2 MG/ML 2 ML VIAL IV PRN (15:48)
[2022-02-12] MEDS: traZODone HCL 100 MG TAB PO SCH (21:23)
[2022-02-13 00:30] LABS: Appearance Urine Clear (Clear); Bacteria Urine Automated Negative (Negative); Bilirubin Urine Negative (Negative); Blood Urine Trace (Negative); Cast Urine Automated 0 /lpf (0-5); Color Urine Yellow; Glucose Urine UA Negative (Negative); Ketones Urine Negative (Negative); Leukocyte Esterase Urine 1+ (Negative); Nitrite Urine Negative (Negative); Protein Urine Negative (Negative); RBC Urine Automated 0-4 /hpf (0-4); Specific Gravity Urine 1.009 (1.000-1.030); Urobilinogen Urine Negative (Negative)
[2022-02-13] MEDS: HYDROmorphone INJ 0.5 MG/0.5 ML SYR IV PRN ×3 (03:22→22:15)
[2022-02-13] MEDS ORDERED: HYDROmorphone INJ 0.5 MG/0.5 ML SYR IV STA (03:47)
[2022-02-13] MEDS: ONDANSETRON INJ 2 MG/ML 2 ML VIAL IV PRN (07:31)
[2022-02-13] MEDS: oxyCODONE/ACETAMINOPHEN 10-325 TAB PO PRN ×2 (07:31→19:18)
[2022-02-13] MEDS: PREGABALIN 50 MG CAP PO SCH ×2 (08:38→20:41)
[2022-02-13] MEDS: hydrOXYzine HCl 25 MG TAB PO PRN ×2 (08:38→20:40)
[2022-02-13] MEDS: ATORVASTATIN 20 MG TAB PO SCH (08:39)
[2022-02-13] MEDS: BACLOFEN 10 MG TAB PO SCH ×3 (08:39→20:40)
[2022-02-13] MEDS: ENOXAPARIN INJ 40 MG/0.4 ML SYR SQ SCH ×2 (08:39→20:41)
[2022-02-13] MEDS: lisinopril 40 MG TAB PO SCH (08:39)
[2022-02-13] MEDS: NICOTINE 21 MG/24 HR TDSY TD SCH (08:39)
[2022-02-13] MEDS: POLYETHYLENE (MIRALAX) 17 GM PACK PO SCH (08:39)
[2022-02-13] MEDS ORDERED: VENLAFAXINE HCL XR 37.5 MG CAPXR PO ONE (09:00)
--- NOTE | 2022-02-13 15:11 | Hospitalist Progress Note ---
Date of Service February 13, 2022 Assessment & Plan (1) Neck pain: (2) Back pain: (3) Ambulatory dysfunction: (4) S/P cervical spinal fusion: Plan: This is a 66-year-old female who presents with severe back pain, neck pain, and ambulatory dysfunction. 1. Severe back pain, neck pain, and severe ambulatory dysfunction: Had multiple surgeries in the back and neck, recent neck surgery in [facility] on 11/08/2021 MRI obtained C-spine: 1. Mildly motion degraded exam. 2. Prior C4-C7 fusion. Resolution of the previously described prevertebral fluid collection with decreased fluid and edema within the posterior operative bed. There are no epidural fluid collections. 3. Increased T2 signal with slight expansion of the cervical spinal cord redemonstrated at the level of C3-C4, likely parts sales representative of myelomalacia. 4. Discogenic degeneration with facet arthrosis as above. L-spine IMPRESSION: 1. No acute fracture. 2. Chronic thoracolumbar compression deformities with prior kyphoplasty. 3. Multilevel neural foraminal stenosis with mild to moderate L2-L3 central canal narrowing. 4. There is no significant change compared to the 11/07/2021 study. Orthopedics consulted, no surgical intervention needed at this time Continue PT OT, pain management, psychiatry consultation as well Per pain management, nortriptyline was stopped, and patient was started on Lyrica 50 twice daily, this may need to be uptitrated For now we will also continue her other medications, and 0.5 Dilaudid IV every 3 hours as needed 2. Hypertension: Continue home medication of lisinopril. Will monitor the blood pressure. 3. Hyperlipidemia: Continue statin. 4. Depression:Patient seen by psychiatry, plan to start Cymbalta, and stop Effexor (titration started, plan to start Cymbalta on Tuesday, Effexor dose lowered) 5. Prediabetes: Current HbA1c 5.6%, follow diabetic diet. DVT prophylaxis: Lovenox. DISPOSITION:PT, OT prior to discharge. Code: Full code. Admission and Anticipated Discharge Date Admission Date: February 11, 2022 Subjective Patient seen in follow-up of back pain, status post multiple spine surgeries, depression Patient was seen by pain management, psychiatry and orthopedics during this hospital stay Medications adjusted by psychiatry and pain management, no plan for any surgical intervention Currently patient is sleepy, laying in bed, reportedly did not sleep much last night No fevers, chills, chest pain, shortness of breath, abdominal pain, nausea vomiting, and reports recurrent back pain/difficulty ambulating Review of Systems Review of Systems: All systems reviewed & are unremarkable except as noted in Subjective Physical Exam Physical Exam: GENERAL: obese F , not in acute distress but teary HEENT: NC/AT, EOMI, Pupils equal, round and reactive to light. Oral mucosa moist. NECK: No JVD, no neck masses. CARDIOVASCULAR: S1 and S2 heard. Regular rate and rhythm. No murmur, no gallop. RESPIRATORY SYSTEM: Normal AP diameter. No accessory muscle use. No wheezing, no crackles. ABDOMEN: Soft, bowel sounds present, nontender, no distention. NEURO:sleepy, moves extremities MUSCULOSKELETAL:Cervical neck surgical site clean. Able to move extremities. Results & Data Results & Data ([facility]) Vital Signs (Past 12 Hours) Vital Signs Temp Pulse Resp BP Pulse Ox 02/13/22 14:24 36.8 C 71 16 107/66 93 02/13/22 07:13 36.6 C 69 16 121/76 95 Medications Administered Current Inpatient Medications Acetaminophen (Acetaminophen 325 Mg Tab) 650 mg PO Q4H PRN PRN Reason: pain/fever Stop: 03/13/22 01:56 Last Admin: 02/13/22 01:12 Dose: 650 mg Documented by: Atorvastatin Calcium (Atorvastatin 20 Mg Tab) 20 mg PO QAM [facility] Stop: 03/13/22 08:59 Last Admin: 02/13/22 08:39 Dose: 20 mg Documented by: Baclofen (Baclofen 10 Mg Tab) 10 mg PO TID [facility] Stop: 03/13/22 08:59 Last Admin: 02/13/22 12:57 Dose: 10 mg Documented by: Duloxetine HCl (Duloxetine Hcl 30 Mg Cap) 30 mg PO QAM [facility] to start tomorrow 02/14/22 Stop: 03/16/22 08:59 Enoxaparin Sodium (Enoxaparin Inj 40 Mg/0.4 Ml Syr) 40 mg SQ Q12H [facility] Stop: 03/13/22 08:59 Last Admin: 02/13/22 08:39 Dose: Not Given Documented by: Hydromorphone HCl (Hydromorphone Inj 0.5 Mg/0.5 Ml Syr) 0.5 mg IV Q3H PRN PRN Reason: Severe Pain Stop: 02/25/22 01:56 Last Admin: 02/13/22 11:24 Dose: 0.5 mg Documented by: Hydroxyzine HCl (Hydroxyzine Hcl 25 Mg Tab) 25 mg PO BID PRN PRN Reason: anxiety Stop: 03/13/22 01:56 Last Admin: 02/13/22 08:38 Dose: 25 mg Documented by: Lisinopril (Lisinopril 40 Mg Tab) 40 mg PO QAM [facility] Stop: 03/13/22 08:59 Last Admin: 02/13/22 08:39 Dose: 40 mg Documented by: Miscellaneous (Remove Nicoderm Patch) 1 ea N/A DAILY@0859 [facility] Stop: 03/14/22 08:58 Last Admin: 02/13/22 08:39 Dose: 1 ea Documented by: Nicotine (Nicotine 21 Mg/24 Hr Tdsy) 21 mg TD QAM [facility] Stop: 03/14/22 08:59 Last Admin: 02/13/22 08:39 Dose: 21 mg Documented by: Ondansetron HCl (Ondansetron Inj 2 Mg/Ml 2 Ml Vial) 4 mg IV Q6H PRN PRN Reason: Nausea Stop: 03/13/22 01:56 Last Admin: 02/13/22 07:31 Dose: 4 mg Documented by: Oxycodone/Acetaminophen (Oxycodone/Acetaminophen 10-325 Tab) 1 tab PO Q8H PRN PRN Reason: Pain Stop: 02/25/22 01:56 Last Admin: 02/13/22 07:31 Dose: 1 tab Documented by: Polyethylene Glycol (Polyethylene (Miralax) 17 Gm Pack) 17 gm PO DAILY PRN PRN Reason: Constipation Stop: 03/13/22 01:56 Polyethylene Glycol (Polyethylene (Miralax) 17 Gm Pack) 17 gm PO DAILY [facility] Stop: 03/13/22 08:59 Last Admin: 02/13/22 08:39 Dose: 17 gm Documented by: Pregabalin (Pregabalin 50 Mg Cap) 50 mg PO BID [facility] Stop: 03/13/22 08:59 Last Admin: 02/13/22 08:38 Dose: 50 mg Documented by: Trazodone HCl (Trazodone Hcl 100 Mg Tab) 100 mg PO HS [facility] Stop: 03/13/22 20:59 Last Admin: 02/12/22 21:23 Dose: 100 mg Documented by: Venlafaxine HCl (Venlafaxine Hcl Xr 150 Mg Capxr) 150 mg PO QAM [facility] Stop: 03/16/22 08:59
[2022-02-13] MEDS: POLYETHYLENE (MIRALAX) 17 GM PACK PO PRN (17:48)
[2022-02-13] MEDS: traZODone HCL 100 MG TAB PO SCH (20:40)
[2022-02-14] MEDS: HYDROmorphone INJ 0.5 MG/0.5 ML SYR IV PRN ×4 (02:36→20:25)
[2022-02-14 07:24] LABS: Hematocrit (blood only) 43.8 % (37-47); Hemoglobin 14.8 g/dL (12.0-16.0); Mean Corpuscular Hgb Conc 33.8 g/dL (32-36); Mean Corpuscular Volume 91.8 fL (80-100); Platelet Count 287 K/uL (130-400); RDW Coefficient of Variation 13.7 % (11.5-14.5); RDW Standard Deviation 46.3 fL (36.4-46.3); Red Blood Count 4.77 M/uL (4.2-5.4); White Blood Count 7.83 K/uL (4.8-10.8)
[2022-02-14 07:47] LABS: Creatinine Clr Calc Pharmacy 84.2 ml/min; Est GFR (African American) 106.5 ml/min; Est GFR (Non-African American) 91.9 ml/min
--- NOTE | 2022-02-14 07:47 | Hospitalist Progress Note ---
Date of Service February 14, 2022 Assessment & Plan (1) Neck pain: (2) Back pain: (3) Ambulatory dysfunction: (4) S/P cervical spinal fusion: Plan: This is a 66-year-old female who presents with severe back pain, neck pain, and ambulatory dysfunction. 1. Severe back pain, neck pain, and severe ambulatory dysfunction: Had multiple surgeries in the back and neck, recent neck surgery in [facility] on 11/08/2021 MRI obtained C-spine: 1. Mildly motion degraded exam. 2. Prior C4-C7 fusion. Resolution of the previously described prevertebral fluid collection with decreased fluid and edema within the posterior operative bed. There are no epidural fluid collections. 3. Increased T2 signal with slight expansion of the cervical spinal cord redemonstrated at the level of C3-C4, likely veterans contact representative of myelomalacia. 4. Discogenic degeneration with facet arthrosis as above. L-spine IMPRESSION: 1. No acute fracture. 2. Chronic thoracolumbar compression deformities with prior kyphoplasty. 3. Multilevel neural foraminal stenosis with mild to moderate L2-L3 central canal narrowing. 4. There is no significant change compared to the 11/07/2021 study. Orthopedics consulted, no surgical intervention needed at this time Continue PT OT, pain management, psychiatry consultation as well Per pain management, nortriptyline was stopped, and patient was started on Lyrica 50 twice daily, this may need to be uptitrated For now we will also continue her other medications, and 0.5 Dilaudid IV every 3 hours as needed 2. Hypertension: Continue home medication of lisinopril. Will monitor the blood pressure. 3. Hyperlipidemia: Continue statin. 4. Depression:Patient seen by psychiatry, plan to start Cymbalta, and stop Effexor (titration started, plan to start Cymbalta on Tuesday, Effexor dose lowered) 5. Prediabetes: Current HbA1c 5.6%, follow diabetic diet. DVT prophylaxis: Lovenox. DISPOSITION:PT, OT prior to discharge. Code: Full code. Admission and Anticipated Discharge Date Admission Date: February 11, 2022 Subjective Patient seen in follow-up of back pain, status post multiple spine surgeries, depression Patient was seen by pain management, psychiatry and orthopedics during this hospital stay Medications adjusted by psychiatry and pain management, no plan for any surgical intervention Currently patient is laying in bed in NAD No fevers, chills, chest pain, shortness of breath, abdominal pain, nausea vomiting, and reports recurrent back pain/difficulty ambulating Review of Systems Review of Systems: All systems reviewed & are unremarkable except as noted in Subjective Physical Exam Physical Exam: GENERAL: obese F , not in acute distress but teary HEENT: NC/AT, EOMI, Pupils equal, round and reactive to light. Oral mucosa moist. NECK: No JVD, no neck masses. CARDIOVASCULAR: S1 and S2 heard. Regular rate and rhythm. No murmur, no gallop. RESPIRATORY SYSTEM: Normal AP diameter. No accessory muscle use. No wheezing, no crackles. ABDOMEN: Soft, bowel sounds present, nontender, no distention. NEURO:sleepy, moves extremities MUSCULOSKELETAL:Cervical neck surgical site clean. Able to move extremities. Results & Data Results & Data ([facility]) Vital Signs (Past 12 Hours) Vital Signs Temp Pulse Resp BP Pulse Ox 02/14/22 07:14 36.5 C 69 16 113/68 90 02/13/22 22:12 36.8 C 75 18 110/74 93 Laboratory Results 02/14/22 02/14/22 Range/Units 06:39 06:39 WBC 7.83 (4.8-10.8) K/uL RBC 4.77 (4.2-5.4) M/uL Hgb 14.8 (12.0-16.0) g/dL Hct 43.8 (37-47) % MCV 91.8 (80-100) fL MCH 31.0 (25-34) pg MCHC 33.8 (32-36) g/dL RDW Std Deviation 46.3 (36.4-46.3) fL RDW Coeff of Jimi 13.7 (11.5-14.5) % Plt Count 287 (130-400) K/uL MPV 9.0 (7.4-10.4) fL Creatinine 0.65 (0.6-1.2) mg/dl Est Cr Clr Drug Dosing 84.2 ml/min Est GFR ( Amer) 106.5 ml/min Est GFR (Non-Af Amer) 91.9 ml/min Medications Administered Current Inpatient Medications Acetaminophen (Acetaminophen 325 Mg Tab) 650 mg PO Q4H PRN PRN Reason: pain/fever Stop: 03/13/22 01:56 Last Admin: 02/13/22 01:12 Dose: 650 mg Documented by: Atorvastatin Calcium (Atorvastatin 20 Mg Tab) 20 mg PO [facility] Stop: 03/13/22 08:59 Last Admin: 02/13/22 08:39 Dose: 20 mg Documented by: Baclofen (Baclofen 10 Mg Tab) 10 mg PO TID [facility] Stop: 03/13/22 08:59 Last Admin: 02/13/22 20:40 Dose: 10 mg Documented by: Duloxetine HCl (Duloxetine Hcl 30 Mg Cap) 30 mg PO [facility] Stop: 03/16/22 08:59 Enoxaparin Sodium (Enoxaparin Inj 40 Mg/0.4 Ml Syr) 40 mg SQ Q12H [facility] Stop: 03/13/22 08:59 Last Admin: 02/13/22 20:41 Dose: 40 mg Documented by: Hydromorphone HCl (Hydromorphone Inj 0.5 Mg/0.5 Ml Syr) 0.5 mg IV Q3H PRN PRN Reason: Severe Pain Stop: 02/25/22 01:56 Last Admin: 02/14/22 02:36 Dose: 0.5 mg Documented by: Hydroxyzine HCl (Hydroxyzine Hcl 25 Mg Tab) 25 mg PO BID PRN PRN Reason: anxiety Stop: 03/13/22 01:56 Last Admin: 02/13/22 20:40 Dose: 25 mg Documented by: Lisinopril (Lisinopril 40 Mg Tab) 40 mg PO [facility] Stop: 03/13/22 08:59 Last Admin: 02/13/22 08:39 Dose: 40 mg Documented by: Miscellaneous (Remove Nicoderm Patch) 1 ea N/A DAILY@0859 [facility] Stop: 03/14/22 08:58 Last Admin: 02/13/22 08:39 Dose: 1 ea Documented by: Nicotine (Nicotine 21 Mg/24 Hr Tdsy) 21 mg TD [facility] Stop: 03/14/22 08:59 Last Admin: 02/13/22 08:39 Dose: 21 mg Documented by: Ondansetron HCl (Ondansetron Inj 2 Mg/Ml 2 Ml Vial) 4 mg IV Q6H PRN PRN Reason: Nausea Stop: 03/13/22 01:56 Last Admin: 02/13/22 07:31 Dose: 4 mg Documented by: Oxycodone/Acetaminophen (Oxycodone/Acetaminophen 10-325 Tab) 1 tab PO Q8H PRN PRN Reason: Pain Stop: 02/25/22 01:56 Last Admin: 02/13/22 19:18 Dose: 1 tab Documented by: Polyethylene Glycol (Polyethylene (Miralax) 17 Gm Pack) 17 gm PO DAILY PRN PRN Reason: Constipation Stop: 03/13/22 01:56 Last Admin: 02/13/22 17:48 Dose: 17 gm Documented by: Polyethylene Glycol (Polyethylene (Miralax) 17 Gm Pack) 17 gm PO DAILY [facility] Stop: 03/13/22 08:59 Last Admin: 02/13/22 08:39 Dose: 17 gm Documented by: Pregabalin (Pregabalin 50 Mg Cap) 50 mg PO BID [facility] Stop: 03/13/22 08:59 Last Admin: 02/13/22 20:41 Dose: 50 mg Documented by: Trazodone HCl (Trazodone Hcl 100 Mg Tab) 100 mg PO HS [facility] Stop: 03/13/22 20:59 Last Admin: 02/13/22 20:40 Dose: 100 mg Documented by: Venlafaxine HCl (Venlafaxine Hcl Xr 150 Mg Capxr) 150 mg PO QAM [facility] Stop: 03/16/22 08:59
[2022-02-14] MEDS: PREGABALIN 50 MG CAP PO SCH ×2 (08:59→21:09)
[2022-02-14] MEDS: hydrOXYzine HCl 25 MG TAB PO PRN ×2 (08:59→21:09)
[2022-02-14] MEDS: NICOTINE 21 MG/24 HR TDSY TD SCH (08:59)
[2022-02-14] MEDS: POLYETHYLENE (MIRALAX) 17 GM PACK PO SCH (08:59)
[2022-02-14] MEDS: oxyCODONE/ACETAMINOPHEN 10-325 TAB PO PRN (08:59)
[2022-02-14] MEDS: BACLOFEN 10 MG TAB PO SCH ×3 (08:59→21:10)
[2022-02-14] MEDS: lisinopril 40 MG TAB PO SCH (09:00)
[2022-02-14] MEDS ORDERED: VENLAFAXINE HCL XR 150 MG CAPXR PO SCH (09:00)
[2022-02-14] MEDS: ATORVASTATIN 20 MG TAB PO SCH (09:00)
[2022-02-14] MEDS: ENOXAPARIN INJ 40 MG/0.4 ML SYR SQ SCH ×2 (09:00→21:10)
[2022-02-14] MEDS: DULoxetine HCL 30 MG CAP PO SCH (09:00)
--- NOTE | 2022-02-14 12:46 | Psychiatric Progress Note ---
Date of Service February 14, 2022 Impression / Recommendations Impression 66 yo woman with depression and chronic pain. In process of cross-taper from Effexor XR to Cymbalta for depression and chronic nerve pain. Tolerating cross- taper well. Some improvement in mood, denies SI. Acute risk of self-harm is low. Recommend ongoing close follow-up with pain clinic given her concerns about recently requiring higher doses of her prescribed pain medication, no evidence for current opioid use disorder. Discussed strategies to cope with cognitive distortions associated with pain, depression, anxiety. (1) Depression: -continue cross-taper from Effexor XR to Cymbalta: Cymbalta 30mg qd started today, Effexor 150mg qd. Tomorrow 02/15: decrease Effexor XR to 112.5 mg qd, c/w Cymbalta 30mg qd; 02/16: decrease Effexor XR to 75 mg qd and continue for 5 days then on 02/21 decrease Effexor XR to 37.5 mg and continue for 5 days and then discontinue. Continue with Cymbalta 30mg qd for 7 days and on 02/21: increase Cymbalta to 60mg qd. -has outpt follow-up for psychiatry scheduled with [facility] Interval History Identifying Information Ms. Ragland is a 66-year-old female from [facility]. Consult is by [facility] Hospitalist service for depression. Chief Complaint "I'm less bawly". Review of Systems Notes stable sleep and appetite Subjective Subjective Patient was seen & assessed and interval progress reviewed. Adrianna notes ongoing depression and anxiety related to pain and nerve issues including how this impact her functioning such as dropping things, spilling things and nerve pain. However, she can also speak to great support from her son and granddaughter and hopefulness about support from pain clinic and potential for implanted pain management device in the future after she recovers further from her recent surgery. Discussed strategies she uses to help manage pain including deep breathing, thinking of happy thoughts and listening to music. Reviewed positive coping thoughts she can use. Tolerating cross-taper without any side effects. Feels her mood has improved slightly noting "I'm less bawly" in reference to being less tearful. Noting stress of her siblings not wanting to talk with her since she developed more chronic pain as they don't understand why she needs to be on opioids for pain management. She spoke about her dependence to opioiods due to the pain but does not feel it's developed into an addiction noting that she continues to meet her daily obligations including POA for her elderly mother and caring for her granddaughter. Denies SI. Consents to ongoing cross-taper. Hopeful she can leave the hospital soon. Is looking forward to [facility] follow-up next month for psychiatry. Physical Exam Psychiatric Orientation: alert and oriented x 3 Apperance: appropriately dressed and appropriately groomed Eye Contact: good eye contact Motor Behavior: no abnormal motor movements Speech: normal rate/rhythm/volume of speech Affect: + depressed affect Mood: + depressed mood and + anxious mood Thought Process: goal directed thought process Thought Content: reality based without delusions Suicidal Thoughts: denies suicidal thoughts Homicidal Thoughts: denies homicidal thoughts Hallucinations: no auditory hallucinations and no visual hallucinations Cognition: attention grossly intact and language grossly intact Estimated Intelligence: consistent with education level Vital Signs (Past 24 Hours) Last Vital Signs Temp 36.5 C 02/14/22 07:14 Pulse 69 02/14/22 07:14 Resp 16 02/14/22 07:14 BP 113/68 02/14/22 07:14 Pulse Ox 90 02/14/22 07:14 Results & Data ([facility]) Laboratory Results Laboratory Results - last 24 hr 02/14/22 02/14/22 06:39 06:39 WBC 7.83 RBC 4.77 Hgb 14.8 Hct 43.8 MCV 91.8 MCH 31.0 MCHC 33.8 RDW Std Deviation 46.3 RDW Coeff of Jimi 13.7 Plt Count 287 MPV 9.0 Creatinine 0.65 Est Cr Clr Drug Dosing 84.2 Est GFR ( Amer) 106.5 Est GFR (Non-Af Amer) 91.9 Current Inpatient Medications Current Inpatient Medications: Current Inpatient Medications Acetaminophen (Acetaminophen 325 Mg Tab) 650 mg PO Q4H PRN PRN Reason: pain/fever Stop: 03/13/22 01:56 Last Admin: 02/13/22 01:12 Dose: 650 mg Documented by: Atorvastatin Calcium (Atorvastatin 20 Mg Tab) 20 mg PO QAM [facility] Stop: 03/13/22 08:59 Last Admin: 02/14/22 09:00 Dose: 20 mg Documented by: Baclofen (Baclofen 10 Mg Tab) 10 mg PO TID [facility] Stop: 03/13/22 08:59 Last Admin: 02/14/22 08:59 Dose: 10 mg Documented by: Duloxetine HCl (Duloxetine Hcl 30 Mg Cap) 30 mg PO QAM [facility] Stop: 03/16/22 08:59 Last Admin: 02/14/22 09:00 Dose: 30 mg Documented by: Enoxaparin Sodium (Enoxaparin Inj 40 Mg/0.4 Ml Syr) 40 mg SQ Q12H [facility] Stop: 03/13/22 08:59 Last Admin: 02/14/22 09:00 Dose: Not Given Documented by: Hydromorphone HCl (Hydromorphone Inj 0.5 Mg/0.5 Ml Syr) 0.5 mg IV Q3H PRN PRN Reason: Severe Pain Stop: 02/25/22 01:56 Last Admin: 02/14/22 10:50 Dose: 0.5 mg Documented by: Hydroxyzine HCl (Hydroxyzine Hcl 25 Mg Tab) 25 mg PO BID PRN PRN Reason: anxiety Stop: 03/13/22 01:56 Last Admin: 02/14/22 08:59 Dose: 25 mg Documented by: Lisinopril (Lisinopril 40 Mg Tab) 40 mg PO [facility] Stop: 03/13/22 08:59 Last Admin: 02/14/22 09:00 Dose: 40 mg Documented by: Miscellaneous (Remove Nicoderm Patch) 1 ea N/A DAILY@0859 [facility] Stop: 03/14/22 08:58 Last Admin: 02/14/22 09:00 Dose: 1 ea Documented by: Nicotine (Nicotine 21 Mg/24 Hr Tdsy) 21 mg TD [facility] Stop: 03/14/22 08:59 Last Admin: 02/14/22 08:59 Dose: 21 mg Documented by: Ondansetron HCl (Ondansetron Inj 2 Mg/Ml 2 Ml Vial) 4 mg IV Q6H PRN PRN Reason: Nausea Stop: 03/13/22 01:56 Last Admin: 02/13/22 07:31 Dose: 4 mg Documented by: Oxycodone/Acetaminophen (Oxycodone/Acetaminophen 10-325 Tab) 1 tab PO Q8H PRN PRN Reason: Pain Stop: 02/25/22 01:56 Last Admin: 02/14/22 08:59 Dose: 1 tab Documented by: Polyethylene Glycol (Polyethylene (Miralax) 17 Gm Pack) 17 gm PO DAILY PRN PRN Reason: Constipation Stop: 03/13/22 01:56 Last Admin: 02/13/22 17:48 Dose: 17 gm Documented by: Polyethylene Glycol (Polyethylene (Miralax) 17 Gm Pack) 17 gm PO DAILY [facility] Stop: 03/13/22 08:59 Last Admin: 02/14/22 08:59 Dose: 17 gm Documented by: Pregabalin (Pregabalin 50 Mg Cap) 50 mg PO BID [facility] Stop: 03/13/22 08:59 Last Admin: 02/14/22 08:59 Dose: 50 mg Documented by: Trazodone HCl (Trazodone Hcl 100 Mg Tab) 100 mg PO HS [facility] Stop: 03/13/22 20:59 Last Admin: 02/13/22 20:40 Dose: 100 mg Documented by: Venlafaxine HCl (Venlafaxine Hcl Xr 150 Mg Capxr) 150 mg PO QAM [facility] Stop: 03/16/22 08:59 Last Admin: 02/14/22 09:00 Dose: 150 mg Documented by: Mental Health & Subst Abuse Tx Psychiatrist Name of Psychiatrist: [facility] Psychiatrist's Date of Appointment with Psychiatrist: 03/17/22 Time of Appointment with Psychiatrist: 12:15 Psychiatric Appointment Comment: Please bring insurance card with you. 24 hour notice required to cancel Psychiatrist Release of Information: Obtained, Reviewed and Signed
[2022-02-14] MEDS: traZODone HCL 100 MG TAB PO SCH (21:11)
[2022-02-14] MEDS: POLYETHYLENE (MIRALAX) 17 GM PACK PO PRN (21:15)
[2022-02-15] MEDS: HYDROmorphone INJ 0.5 MG/0.5 ML SYR IV PRN ×2 (02:31→08:40)
--- NOTE | 2022-02-15 08:35 | Hospitalist Progress Note ---
Date of Service February 15, 2022 Assessment & Plan (1) Neck pain: (2) Back pain: (3) Ambulatory dysfunction: (4) S/P cervical spinal fusion: Plan: This is a 66-year-old female who presents with severe back pain, neck pain, and ambulatory dysfunction. 1. Severe back pain, neck pain, and severe ambulatory dysfunction: Had multiple surgeries in the back and neck, recent neck surgery in [facility] on 11/08/2021 MRI obtained C-spine: 1. Mildly motion degraded exam. 2. Prior C4-C7 fusion. Resolution of the previously described prevertebral fluid collection with decreased fluid and edema within the posterior operative bed. There are no epidural fluid collections. 3. 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 4. Discogenic degeneration with facet arthrosis as above. L-spine IMPRESSION: 1. No acute fracture. 2. Chronic thoracolumbar compression deformities with prior kyphoplasty. 3. Multilevel neural foraminal stenosis with mild to moderate L2-L3 central canal narrowing. 4. There is no significant change compared to the 11/07/2021 study. Orthopedics consulted, no surgical intervention needed at this time Continue PT OT, pain management, psychiatry consultation as well Per pain management, nortriptyline was stopped, and patient was started on Lyrica 50 twice daily, this may need to be uptitrated Continue her other medications 2. Hypertension: Continue home medication of lisinopril. Will monitor the blood pressure. 3. Hyperlipidemia: Continue statin. 4. Depression:Patient seen by psychiatry, plan to start Cymbalta, and stop Effexor (titration started, Started on Cymbalta on Tuesday (02/14/22), Effexor dose lowered) DC recs per psychiatry -continue cross-taper from Effexor XR to Cymbalta:02/16 - 02/20: Effexor XR to 75 mg qd and Cymbalta 30mg qd. 02/21: decrease Effexor XR to 37.5 mg and increase Cymbalta to 60mg qd. 02/26: discontinue Effexor XR and continue to take Cymbalta 60mg qd. -has outpt follow-up for psychiatry scheduled with [facility]. Prediabetes: Current HbA1c 5.6%, follow diabetic diet. DVT prophylaxis: Lovenox. DISPOSITION:PT, OT prior to discharge. Code: Full code. Admission and Anticipated Discharge Date Admission Date: February 11, 2022 Subjective Patient seen in follow-up of back pain, status post multiple spine surgeries, depression Patient was seen by pain management, psychiatry and orthopedics during this hospital stay Medications adjusted by psychiatry and pain management, no plan for any surgical intervention Currently patient is laying in bed in NAD No fevers, chills, chest pain, shortness of breath, abdominal pain, nausea vomiting, and reports recurrent back pain/difficulty ambulating Patient tolerating the change of medications well, plan to discharge later today Review of Systems Review of Systems: All systems reviewed & are unremarkable except as noted in Subjective Physical Exam Physical Exam: GENERAL: obese F , not in acute distress but occasionally teary HEENT: NC/AT, EOMI, Pupils equal, round and reactive to light. Oral mucosa moist. NECK: No JVD, no neck masses. CARDIOVASCULAR: S1 and S2 heard. Regular rate and rhythm. No murmur, no gallop. RESPIRATORY SYSTEM: Normal AP diameter. No accessory muscle use. No wheezing, no crackles. ABDOMEN: Soft, bowel sounds present, nontender, no distention. NEURO:sleepy, moves extremities MUSCULOSKELETAL:Cervical neck surgical site clean. Able to move extremities. Results & Data Results & Data ([facility]) Vital Signs (Past 12 Hours) Vital Signs Temp Pulse Resp BP Pulse Ox 02/15/22 07:06 36.8 C 64 16 103/64 92 02/14/22 22:43 36.7 C 78 17 107/68 92 Medications Administered Current Inpatient Medications Acetaminophen (Acetaminophen 325 Mg Tab) 650 mg PO Q4H PRN PRN Reason: pain/fever Stop: 03/13/22 01:56 Last Admin: 02/13/22 01:12 Dose: 650 mg Documented by: Atorvastatin Calcium (Atorvastatin 20 Mg Tab) 20 mg PO QAM [facility] Stop: 03/13/22 08:59 Last Admin: 02/14/22 09:00 Dose: 20 mg Documented by: Baclofen (Baclofen 10 Mg Tab) 10 mg PO TID [facility] Stop: 03/13/22 08:59 Last Admin: 02/14/22 21:10 Dose: 10 mg Documented by: Duloxetine HCl (Duloxetine Hcl 30 Mg Cap) [facility] [place]: 02/20/22 18:00 Last Admin: 02/14/22 09:00 Dose: 30 mg Documented by: Duloxetine HCl (Duloxetine Hcl 60 Mg Cap) [facility] Stop: 03/23/22 08:59 Enoxaparin Sodium (Enoxaparin Inj 40 Mg/0.4 Ml Syr) 40 mg SQ Q12H [facility] Stop: 03/13/22 08:59 Last Admin: 02/14/22 21:10 Dose: 40 mg Documented by: Hydromorphone HCl (Hydromorphone Inj 0.5 Mg/0.5 Ml Syr) 0.5 mg IV Q3H PRN PRN Reason: Severe Pain Stop: 02/25/22 01:56 Last Admin: 02/15/22 02:31 Dose: 0.5 mg Documented by: Hydroxyzine HCl (Hydroxyzine Hcl 25 Mg Tab) 25 mg PO BID PRN PRN Reason: anxiety Stop: 03/13/22 01:56 Last Admin: 02/14/22 21:09 Dose: 25 mg Documented by: Lisinopril (Lisinopril 40 Mg Tab) 40 mg PO [facility] Stop: 03/13/22 08:59 Last Admin: 02/14/22 09:00 Dose: 40 mg Documented by: Miscellaneous (Remove Nicoderm Patch) 1 ea N/A DAILY@0859 [facility] Stop: 03/14/22 08:58 Last Admin: 02/14/22 09:00 Dose: 1 ea Documented by: Nicotine (Nicotine 21 Mg/24 Hr Tdsy) 21 mg TD [facility] Stop: 03/14/22 08:59 Last Admin: 02/14/22 08:59 Dose: 21 mg Documented by: Ondansetron HCl (Ondansetron Inj 2 Mg/Ml 2 Ml Vial) 4 mg IV Q6H PRN PRN Reason: Nausea Stop: 03/13/22 01:56 Last Admin: 02/13/22 07:31 Dose: 4 mg Documented by: Oxycodone/Acetaminophen (Oxycodone/Acetaminophen 10-325 Tab) 1 tab PO Q8H PRN PRN Reason: Pain Stop: 02/25/22 01:56 Last Admin: 02/14/22 08:59 Dose: 1 tab Documented by: Polyethylene Glycol (Polyethylene (Miralax) 17 Gm Pack) 17 gm PO DAILY PRN PRN Reason: Constipation Stop: 03/13/22 01:56 Last Admin: 02/14/22 21:15 Dose: 17 gm Documented by: Polyethylene Glycol (Polyethylene (Miralax) 17 Gm Pack) 17 gm PO DAILY [facility] Stop: 03/13/22 08:59 Last Admin: 02/14/22 08:59 Dose: 17 gm Documented by: Pregabalin (Pregabalin 50 Mg Cap) 50 mg PO BID [facility] Stop: 03/13/22 08:59 Last Admin: 02/14/22 21:09 Dose: 50 mg Documented by: Trazodone HCl (Trazodone Hcl 100 Mg Tab) 100 mg PO HS [facility] Stop: 03/13/22 20:59 Last Admin: 02/14/22 21:11 Dose: 100 mg Documented by: Venlafaxine HCl (Venlafaxine Hcl Xr 37.5 Mg Capxr) 112.5 mg PO QAM [facility] Stop: 02/15/22 09:01 Venlafaxine HCl (Venlafaxine Hcl Xr 75 Mg Capxr) 75 mg PO QAM [facility] Stop: 02/20/22 18:00 Venlafaxine HCl (Venlafaxine Hcl Xr 37.5 Mg Capxr) 37.5 mg PO QAM [facility] Stop: 02/25/22 18:00
[2022-02-15] MEDS: ATORVASTATIN 20 MG TAB PO SCH (08:46)
[2022-02-15] MEDS: NICOTINE 21 MG/24 HR TDSY TD SCH (08:46)
[2022-02-15] MEDS: PREGABALIN 50 MG CAP PO SCH (08:46)
[2022-02-15] MEDS: ONDANSETRON INJ 2 MG/ML 2 ML VIAL IV PRN (08:46)
[2022-02-15] MEDS: DULoxetine HCL 30 MG CAP PO SCH (08:47)
[2022-02-15] MEDS: BACLOFEN 10 MG TAB PO SCH ×2 (08:47→14:06)
[2022-02-15] MEDS: POLYETHYLENE (MIRALAX) 17 GM PACK PO SCH (08:47)
[2022-02-15] MEDS: ENOXAPARIN INJ 40 MG/0.4 ML SYR SQ SCH (08:47)
[2022-02-15] MEDS: lisinopril 40 MG TAB PO SCH (08:47)
[2022-02-15] MEDS ORDERED: VENLAFAXINE HCL XR 37.5 MG CAPXR PO SCH (09:00)
--- NOTE | 2022-02-15 10:54 | Psychiatric Progress Note ---
Date of Service February 15, 2022 Impression / Recommendations Impression 66 yo woman with depression and chronic pain. Tolerating cross-taper from Effexor XR to Cymbalta for depression and chronic nerve pain with some improvement in mood and no SI. Acute risk of self-harm is low given denial of SI and strong reasons for living and good social support and establishment of outpt follow up. Recommend ongoing close follow-up with pain clinic given her concerns about recently requiring higher doses of her prescribed pain medication, no evidence for current opioid use disorder. Discussed strategies to cope with cognitive distortions associated with pain, depression, anxiety. (1) Depression: -psychiatrically stable for discharge -continue cross-taper from Effexor XR to Cymbalta: 02/16 - 02/20: Effexor XR to 75 mg qd and Cymbalta 30mg qd. 02/21: decrease Effexor XR to 37.5 mg and increase Cymbalta to 60mg qd. 02/26: discontinue Effexor XR and continue to take Cymbalta 60mg qd. -has outpt follow-up for psychiatry scheduled with [facility] Interval History Identifying Information Ms. Ragland is a 66-year-old female from [facility]. Consult is by [facility] service for depression. Chief Complaint "I'm feeling a lot better than when I came in, I think the medication is starting to help". Review of Systems Notes stable sleep and appetite Subjective Subjective Patient was seen & assessed and interval progress reviewed. Adrianna denies any side effects from Cymbalta. Feels the cross-taper is going well and that her mood is improving. She's hopeful she may be able to return home soon as she sleep sbetter at home and misses her family. Reviewed that she has the [facility] follow-up and she plans to call to get her [facility] ride set up for transport. Denies SI. Feels able to manage the cross-taper at home. Physical Exam Psychiatric Orientation: alert and oriented x 3 Apperance: appropriately dressed and appropriately groomed Eye Contact: good eye contact Motor Behavior: no abnormal motor movements Speech: normal rate/rhythm/volume of speech Affect: + depressed affect Mood: + depressed mood Thought Process: goal directed thought process Thought Content: reality based without delusions Suicidal Thoughts: denies suicidal thoughts Homicidal Thoughts: denies homicidal thoughts Hallucinations: no auditory hallucinations and no visual hallucinations Cognition: attention grossly intact and language grossly intact Estimated Intelligence: consistent with education level Insight: + fair insight Judgement: + fair judgement Vital Signs (Past 24 Hours) Last Vital Signs Temp 36.8 C 02/15/22 07:06 Pulse 64 02/15/22 07:06 Resp 16 02/15/22 07:06 BP 103/64 02/15/22 07:06 Pulse Ox 92 02/15/22 07:06 Results & Data ([facility]) Current Inpatient Medications Current Inpatient Medications: Current Inpatient Medications Acetaminophen (Acetaminophen 325 Mg Tab) 650 mg PO Q4H PRN PRN Reason: pain/fever Stop: 03/13/22 01:56 Last Admin: 02/13/22 01:12 Dose: 650 mg Documented by: Atorvastatin Calcium (Atorvastatin 20 Mg Tab) 20 mg PO QAM [facility] Stop: 03/13/22 08:59 Last Admin: 02/15/22 08:46 Dose: 20 mg Documented by: Baclofen (Baclofen 10 Mg Tab) 10 mg PO TID [facility] Stop: 03/13/22 08:59 Last Admin: 02/15/22 08:47 Dose: 10 mg Documented by: Duloxetine HCl (Duloxetine Hcl 30 Mg Cap) 30 mg PO QAM [facility] Stop: 02/20/22 18:00 Last Admin: 02/15/22 08:47 Dose: 30 mg Documented by: Duloxetine HCl (Duloxetine Hcl 60 Mg Cap) 60 mg PO QAM [facility] Stop: 03/23/22 08:59 Enoxaparin Sodium (Enoxaparin Inj 40 Mg/0.4 Ml Syr) 40 mg SQ Q12H [facility] Stop: 03/13/22 08:59 Last Admin: 02/15/22 08:47 Dose: 40 mg Documented by: Hydromorphone HCl (Hydromorphone Inj 0.5 Mg/0.5 Ml Syr) 0.5 mg IV Q3H PRN PRN Reason: Severe Pain Stop: 02/25/22 01:56 Last Admin: 02/15/22 08:40 Dose: 0.5 mg Documented by: Hydroxyzine HCl (Hydroxyzine Hcl 25 Mg Tab) 25 mg PO BID PRN PRN Reason: anxiety Stop: 03/13/22 01:56 Last Admin: 02/14/22 21:09 Dose: 25 mg Documented by: Lisinopril (Lisinopril 40 Mg Tab) 40 mg PO QAM [facility] Stop: 03/13/22 08:59 Last Admin: 02/15/22 08:47 Dose: 40 mg Documented by: Miscellaneous (Remove Nicoderm Patch) 1 ea N/A DAILY@0859 [facility] Stop: 03/14/22 08:58 Last Admin: 02/15/22 08:46 Dose: 1 ea Documented by: Nicotine (Nicotine 21 Mg/24 Hr Tdsy) 21 mg TD QAM [facility] Stop: 03/14/22 08:59 Last Admin: 02/15/22 08:46 Dose: 21 mg Documented by: Ondansetron HCl (Ondansetron Inj 2 Mg/Ml 2 Ml Vial) 4 mg IV Q6H PRN PRN Reason: Nausea Stop: 03/13/22 01:56 Last Admin: 02/15/22 08:46 Dose: 4 mg Documented by: Oxycodone/Acetaminophen (Oxycodone/Acetaminophen 10-325 Tab) 1 tab PO Q8H PRN PRN Reason: Pain Stop: 02/25/22 01:56 Last Admin: 02/14/22 08:59 Dose: 1 tab Documented by: Polyethylene Glycol (Polyethylene (Miralax) 17 Gm Pack) 17 gm PO DAILY PRN PRN Reason: Constipation Stop: 03/13/22 01:56 Last Admin: 02/14/22 21:15 Dose: 17 gm Documented by: Polyethylene Glycol (Polyethylene (Miralax) 17 Gm Pack) 17 gm PO DAILY [facility] Stop: 03/13/22 08:59 Last Admin: 02/15/22 08:47 Dose: 17 gm Documented by: Pregabalin (Pregabalin 50 Mg Cap) 50 mg PO BID [facility] Stop: 03/13/22 08:59 Last Admin: 02/15/22 08:46 Dose: 50 mg Documented by: Trazodone HCl (Trazodone Hcl 100 Mg Tab) 100 mg PO HS [facility] Stop: 03/13/22 20:59 Last Admin: 02/14/22 21:11 Dose: 100 mg Documented by: Venlafaxine HCl (Venlafaxine Hcl Xr 75 Mg Capxr) 75 mg PO QAM [facility] Stop: 02/20/22 18:00 Venlafaxine HCl (Venlafaxine Hcl Xr 37.5 Mg Capxr) 37.5 mg PO QAM [facility] Stop: 02/25/22 18:00 Mental Health & Subst Abuse Tx Psychiatrist Name of Psychiatrist: VERONIQUE MONROE Psychiatrist's Date of Appointment with Psychiatrist: 03/17/22 Time of Appointment with Psychiatrist: 12:15 Psychiatric Appointment Comment: Please bring insurance card with you. 24 hour notice required to cancel Psychiatrist Release of Information: Obtained, Reviewed and Signed
[2022-02-15] MEDS: hydrOXYzine HCl 25 MG TAB PO PRN (11:40)
[2022-02-15] MEDS: oxyCODONE/ACETAMINOPHEN 10-325 TAB PO PRN (12:18)
--- NOTE | 2022-02-15 13:38 | Discharge Summary ---
Date of Service February 15, 2022 Admission HPI Per Admitting Provider This is a 66-year-old female with past medical history significant for five prior lumbar surgeries and two prior cervical surgeries, history of hypertension, hyperlipidemia, prediabetes, history of lumbar decompression, sylvia mbar compression fracture, history of degenerative disk disease, tobacco abuse, depression, who lives at home with her son and granddaughter, who comes with severe back pain, neck pain and ambulatory dysfunction. The patient was in the ER in November with a similar problem and recently status post cervical surgery in [facility] on 11/08/2021. The patient states again after going home, she fell a couple of weeks ago in the kitchen and yesterday she was about to fall on deck, but she held on railings and she thinks at that time she twisted her neck and flared up her neck pain. She is taking a lot of pain medications and is not getting better, having difficulty ambulating. She soiled herself with two bowel movements today because she was not able to go to the bathroom because of severe pain. That is the reason she came to the ER. In the ER, her imaging studies of cervical spine and lumbar spine, in preliminary report, no acute findings. The patient is crying and she says she feels like giving up, but she wants to stay around for her granddaughter, and she wants help for the pain. Had a headache earlier that has resolved. Vision is not that great. No earache, no runny nose, no sore throat, no cough, no fever. Appetite is okay. No difficulty swallowing. No chest pain, no shortness of breath. Nausea when pain is severe. No vomiting, no abdominal pain. Normal bowel and bladder movements. No swelling in the legs, hemodynamically stable. Admission Exam Per Admitting Provider GENERAL: The patient is obese, not in acute distress. VITAL SIGNS: Temperature 36.8, pulse 68, respiratory rate 18, blood pressure 114/85, oxygen 97% on room air. HEENT: Pupils equal, round and reactive to light. Oral mucosa moist. NECK: No JVD, no neck masses. CARDIOVASCULAR: S1 and S2 heard. Regular rate and rhythm. No murmur, no gallop. RESPIRATORY SYSTEM: Normal AP diameter. No accessory muscle use. No wheezing, no crackles. ABDOMEN: Soft, bowel sounds present, nontender, no distention. CENTRAL NERVOUS SYSTEM: Cranial nerves II through XII grossly intact. Power 4/5 in all extremities. MUSCULOSKELETAL:Cervical neck surgical site clean. Able to move extremities. Principal Diagnosis Back pain Depression Discharge Exam GENERAL: obese F , not in acute distress but occasionally teary HEENT: NC/AT, EOMI, Pupils equal, round and reactive to light. Oral mucosa moist. NECK: No JVD, no neck masses. CARDIOVASCULAR: S1 and S2 heard. Regular rate and rhythm. No murmur, no gallop. RESPIRATORY SYSTEM: Normal AP diameter. No accessory muscle use. No wheezing, no crackles. ABDOMEN: Soft, bowel sounds present, nontender, no distention. NEURO:sleepy, moves extremities MUSCULOSKELETAL:Cervical neck surgical site clean. Able to move extremities. Discharge Data Allergies Allergy/AdvReac Type Severity Reaction Status Date / Time Iodinated Contrast Media Allergy Intermediate facial Verified 02/11/22 00:36 swelling [facility] 08/04/19 Penicillins Allergy Unknown SWELLING Verified 02/11/22 00:36 EVERY[facility] Consultations 02/11/22 00:22 ED Decision to Admit Stat 02/11/22 08:00 Consult Orthopedic Surgery Routine Consult Pain Management Routine Consult Psychiatry Routine Ordered Studies 02/10/22 19:06 MR cervical spine wo con Stat IMPRESSION: 1. Mildly motion degraded exam. 2. Prior C4-C7 fusion. Resolution of the previously described prevertebral fluid collection with decreased fluid and edema within the posterior operative bed. There are no epidural fluid collections. 3. Increased T2 signal with slight expansion of the cervical spinal cord redemonstrated at the level of C3-C4, likely graphic art sales representative of myelomalacia. 4. Discogenic degeneration with facet arthrosis as above. MR lumbar spine wo con Stat IMPRESSION: 1. No acute fracture. 2. Chronic thoracolumbar compression deformities with prior kyphoplasty. 3. Multilevel neural foraminal stenosis with mild to moderate L2-L3 central canal narrowing. 4. There is no significant change compared to the 11/07/2021 study. Hospital Course (1) Neck pain: (2) Back pain: (3) Ambulatory dysfunction: (4) S/P cervical spinal fusion: This is a 66-year-old female who presents with severe back pain, neck pain, and ambulatory dysfunction. 1. Severe back pain, neck pain, and severe ambulatory dysfunction: Had multiple surgeries in the back and neck, recent neck surgery in [facility] on 11/08/2021 MRI obtained C-spine: 1. Mildly motion degraded exam. 2. Prior C4-C7 fusion. Resolution of the previously described prevertebral fluid collection with decreased fluid and edema within the posterior operative bed. There are no epidural fluid collections. 3. Increased T2 signal with slight expansion of the cervical spinal cord redemonstrated at the level of C3-C4, likely graphic art sales representative of myelomalacia. 4. Discogenic degeneration with facet arthrosis as above. L-spine IMPRESSION: 1. No acute fracture. 2. Chronic thoracolumbar compression deformities with prior kyphoplasty. 3. Multilevel neural foraminal stenosis with mild to moderate L2-L3 central canal narrowing. 4. There is no significant change compared to the 11/07/2021 study. Orthopedics consulted, no surgical intervention needed at this time Continue PT OT, pain management, psychiatry consultation as well Per pain management, nortriptyline was stopped, and patient was started on Lyrica 50 twice daily, this may need to be uptitrated Continue her other medications 2. Hypertension: Continue home medication of lisinopril. Will monitor the blood pressure. 3. Hyperlipidemia: Continue statin. 4. Depression:Patient seen by psychiatry, plan to start Cymbalta, and stop Effexor (titration started, Started on Cymbalta on Tuesday (02/14/22), Effexor dose lowered) DC recs per psychiatry -continue cross-taper from Effexor XR to Cymbalta:02/16 - 02/20: Effexor XR to 75 mg qd and Cymbalta 30mg qd. 02/21: decrease Effexor XR to 37.5 mg and increase Cymbalta to 60mg qd. 02/26: discontinue Effexor XR and continue to take Cymbalta 60mg qd. -has outpt follow-up for psychiatry scheduled with [facility]. Prediabetes: Current HbA1c 5.6%, follow diabetic diet. Total Time Total Time Spent Total Time Spent (In Minutes): 45 Discharge Plan Discharge Items Patient Disposition: Home - Self-Care Reason For Visit: BACK PAIN Discharge Diagnosis: Back pain Depression Condition on Discharge: Good Activity: Per Instructions section Non-emergency contact: Primary Care Provider and Specialist Call non-emergency contact if: you have any medication questions and your symptoms worsen Follow-up/Referrals: Zion Guzman MD [Primary Care Provider] - 02/23/22 3:00 pm (Date & Time 02/23/2022 3:00 PM Provider Kathy Cee Department [facility] ) Diet: Carb Consistent or DM2 and Heart Healthy Addtl Attending Provider Instructions: Follow-up with your primary care doctor, and your pain management doctor. The appointment with primary care doctor was scheduled for you for February 18. You were started on a new medication, Lyrica, take it as prescribed. Do not take nortriptyline anymore. Below is also a detailed schedule from your psychiatrist, with a plan to continue with Cymbalta, and wean off Effexor. Addtl [employer] Provider Instructions: Psychiatry: We are recommending that you slowly stop your Effexor and slowly increase your Cymbalta per the schedule below: 02/16 - 02/20: Effexor XR 75 mg daily and Cymbalta 30mg daily. 02/21: decrease Effexor XR to 37.5 mg daily and increase Cymbalta to 60mg daily. 02/26: discontinue Effexor XR and continue to take Cymbalta 60mg daily until you see your new [facility] provider. Pending Studies at Discharge: No Stand-Alone Forms: My [facility], Smoking Cessation Medications and DC Order Prescriptions: New duloxetine 30 mg Capsule,Delayed Release(Dr/Ec) 30 mg PO QAM Qty: 5 RF: 0 duloxetine 60 mg Capsule,Delayed Release(Dr/Ec) 60 mg PO QAM Qty: 20 RF: 0 pregabalin [Lyrica] 50 mg Capsule 50 mg PO BID Qty: 60 RF: 0 venlafaxine 75 mg Capsule,Extended Release 24hr 75 mg PO QAM Qty: 5 RF: 0 oxycodone-acetaminophen 10-325 mg Tablet 1 tab PO Q8H PRN (Reason: pain) Qty: 10 RF: 0 tramadol 50 mg tablet 50 mg PO Q8H PRN (Reason: pain) Qty: 10 RF: 0 Continued baclofen 10 mg Tablet 10 mg PO TID PRN (Reason: Muscle Spasm/Pain) RF: 0 trazodone 50 mg Tablet 100 mg PO HS RF: 0 atorvastatin 20 mg tablet 20 mg PO QAM RF: 0 lisinopril 40 mg tablet 40 mg PO QAM RF: 0 acetaminophen [Tylenol Extra Strength] 500 mg Tablet 1,000 mg PO Q8H RF: 0 hydroxyzine HCl 25 mg tablet 25 mg PO BID PRN (Reason: anxiety) RF: 0 oxycodone-acetaminophen 10-325 mg tablet 1 tab PO Q8H PRN (Reason: Pain) RF: 0 polyethylene glycol 3350 [Miralax] 17 gram powder in packet 17 g PO DAILY RF: 0 venlafaxine 37.5 mg capsule,extended release 24hr 37.5 mg PO QAM Qty: 5 RF: 0 Discontinued venlafaxine 225 mg Tablet Extended Release 24hr 225 mg PO QAM RF: 0 nortriptyline 25 mg Capsule 50 mg PO HS Qty: 60 RF: 0 Discharge Orders: Discharge Order (Routine); Ordered 02/15/22 Ordered By: Bartolome Gipson Admission Data Admit Date/Time: 02/11/22 14:26 Attending Provider: Bartolome Gipson Admit Provider: Sam Pierson Primary Care Provider: Zion Guzman Other Providers: Juan David Arias ; Jose Lopez ; Erika Jarquin ; Brigida Marrero ; Amber Figueroa ; Sam Pierson
[2022-02-16] MEDS ORDERED: VENLAFAXINE HCL XR 75 MG CAPXR PO SCH (09:00)
[2022-02-21] MEDS ORDERED: VENLAFAXINE HCL XR 37.5 MG CAPXR PO SCH (09:00)
[2022-02-21] MEDS ORDERED: DULoxetine HCL 60 MG CAP PO SCH (09:00)
== END 2022-02-15 16:10 | disposition home or self-care (01) ==
LOC: 3W 18:16 → ED 18:16 → 3W 02-11 01:40

== ENCOUNTER 2022-09-18 16:29 | Inpatient (IN) ==
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
[2022-09-18 17:10] LABS: Basophils # (auto) 0.03 K/uL (0-0.2); Basophils % (auto) 0.2 %; Eosinophils # (auto) 0.01 K/uL (0-0.50); Eosinophils % (auto) 0.1 %; Hematocrit (blood only) 40.6 % (34.1-44.9); Hemoglobin 14.2 g/dl (12.0-16.0); Immature Granulocytes # (auto) 0.07 K/uL (0.00-0.02); Immature Granulocytes % (auto) 0.4 %; Lymphocytes # (auto) 1.21 K/uL (1.2-3.4); Lymphocytes % (auto) 7.6 %; Mean Corpuscular Hemoglobin 30.4 pg (25.0-34.0); Mean Corpuscular Volume 86.9 fL (80.0-100.0); Mean Platelet Volume 9.1 fL (9.4-12.3); Monocytes # (auto) 1.99 K/uL (0.24-0.82); Monocytes % (auto) 12.5 %; Neutrophils # (auto) 12.64 K/uL (1.4-6.5); Neutrophils % (auto) 79.2 %; Platelet Count 296 K/uL (130-400); RDW Coefficient of Variation 13.6 % (11.5-14.5); RDW Standard Deviation 43.3 fL (36.4-46.3); Red Blood Count 4.67 M/uL (3.93-5.22); White Blood Count 15.95 K/ul (4.8-10.8)
--- NOTE | 2022-09-18 17:15 | XRay Report ---
SINGLE VIEW CHEST CLINICAL HISTORY: Sepsis. FINDINGS: An AP, portable, upright chest radiograph is compared to study dated 06/02/2020 and correlat ed with chest CT dated [id number].. The heart is mildly enlarged noting atherosclerotic calcification o f the thoracic aorta. The pulmonary vasculature is noncongested. Emphysema and chronic interstitial t hickening is similar to previous. There is mild bibasilar airspace consolidation. No large pleural ef fusion or pneumothorax is seen. The skeletal structures are osteopenic. The bony thorax is grossly in tact. Fusion hardware is noted in the lower cervical spine, at the cervicothoracic junction, and in t he midthoracic region. Advanced arthritic change is seen in the shoulders. IMPRESSION: 1. Cardiomegaly and emphysema. 2. Airspace consolidation at the lung bases suggests pneumonia/aspiration pneumonitis. Clinical corre lation will be required and radiographic follow-up to resolution is recommended. ACT 112: Negative or not required by law. Electronically signed by: Nikolas Ricks M.D. 09/18/2022 5:14 PM
[2022-09-18 17:35] LABS: Albumin Level 3.8 gm/dl (3.4-5.0); Bilirubin Direct 0.2 mg/dl (0-0.2); Bilirubin,Total 0.7 mg/dl (0.2-1.0); Calcium 9.6 mg/dl (8.5-10.1); Creatinine Clr Calc Pharmacy 95.2 ml/min; Est GFR (African American) 109.3 ml/min; Est GFR (Non-African American) 94.3 ml/min; Magnesium 1.9 mg/dl (1.7-2.4); Potassium 4.1 mmol/L (3.5-5.1)
[2022-09-18 17:37] LABS: Troponin I High Sensitivity 13.4 pg/ml (0-14)
[2022-09-18] MEDS ORDERED: CEFEPIME 2,000 MG in SYRINGE 0 ML IV STA (17:37)
[2022-09-18] MEDS ORDERED: SODIUM CHLORIDE 0.9% 250 ML IV ONE (17:40)
[2022-09-18] MEDS ORDERED: HYDROmorphone INJ 0.5 MG/0.5 ML SYR IV STA (17:40)
[2022-09-18] MEDS ORDERED: ONDANSETRON INJ 2 MG/ML 2 ML VIAL IV STA (17:40)
[2022-09-18] MEDS ORDERED: CEFEPIME 2,000 MG/20 ML VIAL ONE (18:10)
[2022-09-18 19:05] LABS: Influenza A virus by PCR Negative (Neg); Influenza B virus by PCR Negative (Neg); SARS CoV2 RNA(COVID-19) Ceph NEGATIVE (Negative)
[2022-09-18 19:17] LABS: RSV by PCR Positive (Neg)
[2022-09-18] MEDS ORDERED: methylPREDNISolone 40 MG in SYRINGE 0 ML IV STA (19:21)
[2022-09-18] MEDS ORDERED: MAGNESIUM SULFATE / D5W 1 GM/100 ML BAG IV ONE (19:30)
[2022-09-18 19:38] LABS: Appearance Urine Turbid (Clear); Bacteria Urine Automated Negative (Negative); Blood Urine 2+ (Negative); Color Urine Dark Yellow; Epithelial Cell Urine Auto >30 /lpf (0-5); Glucose Urine UA Trace (Negative); Ketones Urine Trace (Negative); Leukocyte Esterase Urine 1+ (Negative); Nitrite Urine Positive (Negative); Protein Urine 3+ (Negative); Specific Gravity Urine > 1.045 (1.000-1.030); Urobilinogen Urine Negative (Negative); WBC Urine Automated >30 /hpf (0-5)
[2022-09-18 19:43] LABS: Bilirubin Urine 1+ (Negative)
[2022-09-18] MEDS ORDERED: ALBUT/IPRATROP 3MG/0.5MG NEB 3 ML VIAL NEB STA (19:43)
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
[2022-09-18 19:47] LABS: Mucus Urine Present (None Prsent)
[2022-09-18] MEDS ORDERED: PROMETHAZINE HCL 12.5 MG in SODIUM CHLORIDE 0.9% 50 ML IV PRN (19:49)
[2022-09-18] MEDS ORDERED: oxyCODONE HCL IR 5 MG TAB (IMMEDIATE RELEASE) PO PRN (19:49)
[2022-09-18] MEDS ORDERED: CLINDAMYCIN/D5W 600 MG/50 ML BAG IV ONE (20:00)
[2022-09-18] MEDS ORDERED: ACETAMINOPHEN 325 MG TAB PO PRN (21:27)
[2022-09-18 21:58] LABS: Base Excess ABG 7.5 mEq/L (-9-1.8); HCO3 ABG 33 mmol/L (19-24); Oxygen Saturation ABG 95.9 % (90-95); PCO2 ABG 50 mmHg (35-46); PO2 ABG 69 mmHg (80-95); pH ABG 7.43 (7.35-7.45)
[2022-09-18 22:02] LABS: Allen Test Pos (Pos)
[2022-09-18] MEDS: PREGABALIN 100 MG CAP PO SCH (22:09)
[2022-09-18] MEDS: NICOTINE 14 MG/24 HR PATCH TD SCH (22:10)
[2022-09-18] MEDS: traZODone HCL 50 MG TAB PO SCH (22:10)
[2022-09-18] MEDS: oxyCODONE HCL IR 5 MG TAB (IMMEDIATE RELEASE) PO PRN (23:23)
[2022-09-19] MEDS: IPRATROPIUM BROMIDE NEB SOLN 0.02% 2.5 ML VIAL INH SCH ×4 (00:35→19:25)
[2022-09-19] MEDS: LEVALBUTEROL 1.25MG/0.5ML NEB INH SCH ×4 (00:35→19:25)
[2022-09-19] MEDS: lisinopril 40 MG TAB PO SCH (00:37)
[2022-09-19] MEDS ORDERED: XOPENEX/ATROVENT 1.25mg/0.5MG NEB COMBO NEB SCH (01:00)
[2022-09-19] MEDS ORDERED: CLINDAMYCIN/D5W 600 MG/50 ML BAG IV SCH (06:00)
[2022-09-19] MEDS ORDERED: SODIUM CHLORIDE 0.9% 1000ML 1,000 ML IV ONE (07:47)
[2022-09-19 08:05] LABS: Hematocrit (blood only) 38.8 % (34.1-44.9); Hemoglobin 13.1 g/dl (12.0-16.0); Mean Corpuscular Hemoglobin 29.6 pg (25.0-34.0); Mean Corpuscular Hgb Conc 33.8 g/dL (32.0-36.0); Mean Corpuscular Volume 87.6 fL (80.0-100.0); Mean Platelet Volume 9.1 fL (9.4-12.3); Platelet Count 281 K/uL (130-400); RDW Coefficient of Variation 13.7 % (11.5-14.5); RDW Standard Deviation 44.1 fL (36.4-46.3); Red Blood Count 4.43 M/uL (3.93-5.22)
[2022-09-19] MEDS: oxyCODONE HCL IR 5 MG TAB (IMMEDIATE RELEASE) PO PRN ×2 (08:24→22:04)
[2022-09-19] MEDS: DOXYCYCLINE HYCLATE 100 MG in DEXTROSE 5% 100 ML IV SCH ×2 (08:28→20:56)
[2022-09-19 08:33] LABS: BUN Creatinine Ratio 29.4 (10-20); Calcium 8.9 mg/dl (8.5-10.1); Creatinine Clr Calc Pharmacy 67.7 ml/min; Est GFR (African American) 82.2 ml/min; Est GFR (Non-African American) 70.9 ml/min; Potassium 4.7 mmol/L (3.5-5.1)
[2022-09-19] MEDS: predniSONE 20 MG TAB PO SCH (08:33)
[2022-09-19] MEDS: guaiFENesin 600 MG TABCR PO SCH ×2 (08:33→20:57)
[2022-09-19 08:34] LABS: Basophils # (auto) 0.04 K/uL (0-0.2); Basophils % (auto) 0.3 %; Immature Granulocytes # (auto) 0.09 K/uL (0.00-0.02); Immature Granulocytes % (auto) 0.6 %; Lymphocytes # (auto) 1.02 K/uL (1.2-3.4); Lymphocytes % (auto) 6.5 %; Monocytes # (auto) 1.21 K/uL (0.24-0.82); Monocytes % (auto) 7.7 %; Neutrophils # (auto) 13.44 K/uL (1.4-6.5); Neutrophils % (auto) 84.9 %
[2022-09-19] MEDS: buPROPion XL 150 MG TABCR PO SCH (08:35)
[2022-09-19] MEDS: ADVANCED PROBIOTIC 1250 MG CAPSULE PO SCH (08:35)
[2022-09-19] MEDS: DULoxetine HCL 30 MG CAP PO SCH (08:36)
[2022-09-19] MEDS: ATORVASTATIN 20 MG TAB PO SCH (08:36)
[2022-09-19] MEDS: ENOXAPARIN INJ 40 MG/0.4 ML SYR SQ SCH (08:36)
[2022-09-19] MEDS: POLYETHYLENE (MIRALAX) 17 GM PACK PO SCH (08:36)
[2022-09-19] MEDS: NICOTINE 14 MG/24 HR PATCH TD SCH (08:36)
[2022-09-19] MEDS: PREGABALIN 100 MG CAP PO SCH ×3 (08:39→20:56)
[2022-09-19] MEDS ORDERED: lisinopril 40 MG TAB PO SCH (09:00)
[2022-09-19] MEDS ORDERED: MoRPHine SULFATE 2 MG/ML CARP IV STA (10:13)
[2022-09-19] MEDS: cefTRIAXone SODIUM 2,000 MG in DEXTROSE 5% 50 ML IV SCH ×2 (10:21→11:44)
--- NOTE | 2022-09-19 13:22 | Hospitalist Progress Note ---
Date of Service September 19, 2022 Assessment & Plan (1) Acute hypoxemic respiratory failure: Plan: secondary to bilateral lower lobe pneumonia hx RSV infection Possible underlying COPD given emphysematous changes on imaging -- sputum culture -- Ceftri + Doxy Nebs QID Prednisone Mucinex IS, FV Chronic Back Pain -- Morphine IV given -- PRN Oxy warm compress Lidoderm patch Severe sepsis SIRS plus hypoxemia secondary to above -- BP stable lactic acid normal Hypertension, BP on the lower side anxiety/mood disorder, at baseline prediabetes as per records, recent outpatient hemoglobin A1c of 5.8 last September 2021 ongoing tobacco abuse DVT prophylaxis. Lovenox subcu Full code Total critical care time was 40 minutes. plan of care discussed with patient in detail and at length all questions answered she is understanding, agreeable, comfortable with the plan of care Admission and Anticipated Discharge Date Admission Date: September 18, 2022 Subjective ff up for COPD exacerbation, acute hypoxic respiratory failure, etc seen sitting up in bed, not in distress but upset tearful states back pain- middle back is flaring up also feels anxious states breathing is improved compared to yesterday has productive cough no fever/chills Review of Systems Review of Systems: all noted and negative except for above Physical Exam Physical Exam: General- oriented x 3, not in distress, speaks in sentences with no effort or accessory muscle use Eyes- anicteric Neck- no JVD Lungs- faint wheeze and rhonchi BL Heart- normal rate, regular rhythm; no murmurs Abdomen- normal bowel sounds, nondistended, soft, nontender Extremities- no pretibial edema, no calf tenderness Neuro- alert, oriented x 3; no gross focal neurologic deficits Skin- warm & dry Results & Data Results & Data ([facility]) Vital Signs (Past 12 Hours) Vital Signs Temp Pulse Pulse Resp BP Pulse Ox O2 Del Method 09/19/22 10:59 Nasal Cannula 09/19/22 10:55 36.2 C L 72 18 106/69 92 Nasal Cannula 09/19/22 07:34 36.7 C 70 18 109/70 93 Nasal Cannula 09/19/22 07:26 80 16 97 Nasal Cannula 09/19/22 06:46 85 09/19/22 04:00 36.8 C 73 18 118/82 93 Nasal Cannula O2 Flow Rate 09/19/22 10:59 4 09/19/22 10:55 3 09/19/22 07:34 5 09/19/22 07:26 5 09/19/22 06:46 09/19/22 04:00 4 all noted and reviewed including below
[2022-09-19] MEDS: hydrOXYzine HCl 25 MG TAB PO PRN ×2 (15:29→20:18)
[2022-09-19] MEDS: ACETAMINOPHEN 500 MG TAB PO SCH ×2 (15:29→20:56)
[2022-09-19] MEDS: LIDOCAINE 5% 1 PATCH TD SCH (15:36)
[2022-09-19] MEDS: SODIUM CHLOR 7% 4 ML NEB NEB SCH (19:25)
[2022-09-19] MEDS: traZODone HCL 50 MG TAB PO SCH (20:56)
[2022-09-20] MEDS ORDERED: SODIUM CHLORIDE 0.9% 1000ML 1,000 ML IV ONE (00:49)
--- NOTE | 2022-09-20 05:25 | Electrocardiogram Report ---
Test Reason : Blood Pressure : / mmHG Vent. Rate : 081 BPM Atrial Rate : 081 BPM P-R Int : 136 ms QRS Dur : 090 ms QT Int : 364 ms P-R-T Axes : 061 042 069 degrees QTc Int : 422 ms Normal sinus rhythm Possible Left atrial enlargement Borderline ECG When compared with ECG of 19-JAN-2021 16:36, No significant change was found Confirmed by Narciso Gillespie ([id number]) on 09/20/2022 5:25:02 AM Referred By: Zion Guzman Confirmed By:Narciso Gillespie
[2022-09-20] MEDS: ACETAMINOPHEN 500 MG TAB PO SCH ×3 (05:59→19:49)
[2022-09-20] MEDS: oxyCODONE HCL IR 5 MG TAB (IMMEDIATE RELEASE) PO PRN ×2 (06:40→19:47)
[2022-09-20] MEDS: ALBUT/IPRATROP 3MG/0.5MG NEB 3 ML VIAL NEB SCH ×4 (07:02→19:55)
[2022-09-20] MEDS: SODIUM CHLOR 7% 4 ML NEB NEB SCH ×2 (07:02→19:55)
[2022-09-20 07:21] LABS: Estimated Average Glucose 114 mg/dl; Hemoglobin A1C 5.6 % (4.5-5.6)
[2022-09-20] MEDS: DOXYCYCLINE HYCLATE 100 MG in DEXTROSE 5% 100 ML IV SCH (08:34)
[2022-09-20] MEDS: ENOXAPARIN INJ 40 MG/0.4 ML SYR SQ SCH (08:46)
[2022-09-20] MEDS: ADVANCED PROBIOTIC 1250 MG CAPSULE PO SCH (08:46)
[2022-09-20] MEDS: LIDOCAINE 5% 1 PATCH TD SCH (08:47)
[2022-09-20] MEDS: ATORVASTATIN 20 MG TAB PO SCH (08:47)
[2022-09-20] MEDS: POLYETHYLENE (MIRALAX) 17 GM PACK PO SCH (08:47)
[2022-09-20] MEDS: NICOTINE 14 MG/24 HR PATCH TD SCH ×2 (08:47→15:34)
[2022-09-20] MEDS: buPROPion XL 150 MG TABCR PO SCH (08:47)
[2022-09-20] MEDS: lisinopril 40 MG TAB PO SCH (08:47)
[2022-09-20] MEDS: guaiFENesin 600 MG TABCR PO SCH ×2 (08:48→19:47)
[2022-09-20] MEDS: predniSONE 20 MG TAB PO SCH (08:48)
[2022-09-20] MEDS: DULoxetine HCL 30 MG CAP PO SCH (08:48)
[2022-09-20] MEDS: DOXYCYCLINE HYCLATE 100 MG CAP PO SCH ×2 (09:00→19:47)
[2022-09-20] MEDS: PREGABALIN 100 MG CAP PO SCH ×3 (09:02→19:52)
[2022-09-20] MEDS: hydrOXYzine HCl 25 MG TAB PO PRN ×2 (09:08→14:54)
[2022-09-20] MEDS: cefTRIAXone SODIUM 2,000 MG in DEXTROSE 5% 50 ML IV SCH (12:19)
--- NOTE | 2022-09-20 16:39 | Hospitalist Progress Note ---
Date of Service September 20, 2022 Assessment & Plan (1) Acute hypoxemic respiratory failure: Plan: secondary to bilateral lower lobe pneumonia hx RSV infection Possible underlying COPD given emphysematous changes on imaging -- sputum culture: Pending --Currently on 2 L of oxygen via nasal cannula Clinically improving --Continue: Ceftri + Doxy day #2 Nebs QID Prednisone 40 mg p.o. daily Mucinex twice daily IS, FV Chronic Back Pain -- Morphine IV given yesterday -- PRN Oxy warm compress Lidoderm patch Severe sepsis SIRS plus hypoxemia secondary to above -- BP stable lactic acid normal Hypertension, BP on the lower side--> improving today anxiety/mood disorder, at baseline prediabetes as per records, recent outpatient hemoglobin A1c of 5.8 last September 2021 ongoing tobacco abuse DVT prophylaxis. Lovenox subcu Full code plan of care discussed with patient in detail and at length all questions answered she is understanding, agreeable, comfortable with the plan of care Admission and Anticipated Discharge Date Admission Date: September 18, 2022 Subjective Follow-up for bilateral pneumonia, COPD exacerbation, respiratory failure with hypoxia, etc. Seen sitting up in bed, on 2 L of oxygen, watching TV, in good spirits, not in distress States she feels improved today compared to yesterday Able to expectorate more phlegm, still having some cough No chest pain, shortness of breath, wheeze or chills Back pain also improved today No other symptom Review of Systems Review of Systems: all noted and negative except for above Physical Exam Physical Exam: General- oriented x 3, not in distress, speaks in sentences with no effort or accessory muscle use Eyes- anicteric Neck- no JVD Lungs-positive bilateral wheezing, mild to moderate, good air entry bilaterally, occasional rhonchi Heart- normal rate, regular rhythm; no murmurs Abdomen- normal bowel sounds, nondistended, soft, nontender Extremities- no pretibial edema, no calf tenderness Neuro- alert, oriented x 3; no gross focal neurologic deficits Skin- warm & dry Results & Data Results & Data ([facility]) Vital Signs (Past 12 Hours) Vital Signs Temp Pulse Pulse Resp BP Pulse Ox O2 Del Method 09/20/22 15:05 36.7 C 85 20 122/74 94 Nasal Cannula 09/20/22 14:37 91 H 18 94 Nasal Cannula 09/20/22 11:12 36.7 C 82 18 120/69 94 Nasal Cannula 09/20/22 10:23 86 20 95 Nasal Cannula 09/20/22 07:26 36.8 C 81 18 124/75 98 Nasal Cannula 09/20/22 07:24 65 09/20/22 07:04 87 20 97 Nasal Cannula O2 Flow Rate 09/20/22 15:05 2 09/20/22 14:37 2 09/20/22 11:12 2 09/20/22 10:23 3 09/20/22 07:26 3 09/20/22 07:24 09/20/22 07:04 4 all noted and reviewed including below
[2022-09-20] MEDS: traZODone HCL 50 MG TAB PO SCH (19:50)
[2022-09-21] MEDS: oxyCODONE HCL IR 5 MG TAB (IMMEDIATE RELEASE) PO PRN ×4 (03:06→20:31)
[2022-09-21] MEDS: hydrOXYzine HCl 25 MG TAB PO PRN (03:07)
[2022-09-21] MEDS ORDERED: COUGH DROP (SUGAR FREE) LOZ 24 LOZ/1 BOX BUCCAL PRN (04:32)
[2022-09-21] MEDS: ACETAMINOPHEN 500 MG TAB PO SCH ×3 (05:59→20:13)
[2022-09-21] MEDS: ALBUT/IPRATROP 3MG/0.5MG NEB 3 ML VIAL NEB SCH ×4 (07:05→18:22)
[2022-09-21] MEDS: SODIUM CHLOR 7% 4 ML NEB NEB SCH ×2 (07:11→18:23)
[2022-09-21] MEDS: NICOTINE 14 MG/24 HR PATCH TD SCH (07:38)
[2022-09-21] MEDS: DOXYCYCLINE HYCLATE 100 MG CAP PO SCH ×2 (08:36→20:16)
[2022-09-21] MEDS: guaiFENesin 600 MG TABCR PO SCH ×2 (08:36→20:16)
[2022-09-21] MEDS: POLYETHYLENE (MIRALAX) 17 GM PACK PO SCH (08:36)
[2022-09-21] MEDS: predniSONE 20 MG TAB PO SCH (08:37)
[2022-09-21] MEDS: ADVANCED PROBIOTIC 1250 MG CAPSULE PO SCH (08:37)
[2022-09-21] MEDS: buPROPion XL 150 MG TABCR PO SCH (08:37)
[2022-09-21] MEDS: ATORVASTATIN 20 MG TAB PO SCH (08:37)
[2022-09-21] MEDS: ENOXAPARIN INJ 40 MG/0.4 ML SYR SQ SCH (08:37)
[2022-09-21] MEDS: DULoxetine HCL 30 MG CAP PO SCH (08:37)
[2022-09-21] MEDS: LIDOCAINE 5% 1 PATCH TD SCH (08:38)
[2022-09-21] MEDS: lisinopril 40 MG TAB PO SCH (08:38)
[2022-09-21] MEDS: PREGABALIN 100 MG CAP PO SCH ×3 (08:51→20:16)
[2022-09-21] MEDS ORDERED: methylPREDNISolone 40 MG in SYRINGE 0 ML IV SCH (10:45)
--- NOTE | 2022-09-21 11:06 | XRay Report ---
XR chest 1V portable HISTORY: Pneumonia. Follow-up. COMPARISON: Chest 09/18/2022. FINDINGS: No pneumothorax. There are low lung volumes. Patchy bibasilar densities most pronounced on the right. This is similar to the prior study. The heart is normal in size. Cervical and thoracic spi nal fusion hardware again noted. No significant pleural effusions. IMPRESSION: No change in the hazy bibasilar airspace opacities likely representing a pneumonia. This could be due to aspiration ACT 112: Negative or not required by law. Electronically signed by: Jef Jade M.D. 09/21/2022 11:04 AM
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
[2022-09-21] MEDS: cefTRIAXone SODIUM 2,000 MG in DEXTROSE 5% 50 ML IV SCH (12:12)
[2022-09-21] MEDS: UMECLIDINIUM BROMIDE 62.5MCG/BLISTER 7 PUFFS/INHALER INH SCH (12:15)
[2022-09-21] MEDS ORDERED: METOCLOPRAMIDE HCL INJ 5 MG/ML 2 ML VIAL IV PRN (12:29)
--- NOTE | 2022-09-21 15:21 | Hospitalist Progress Note ---
Date of Service September 21, 2022 Assessment & Plan (1) Acute hypoxemic respiratory failure: Plan: Six 6-year-old female with history of smoking, no formal diagnosis of COPD, hypertension, prediabetes, mood disorder, presenting with Several day history of cough, shortness of breath. ACUTE HYPOXIC RESPIRATORY FAILURE SECONDARY TO BILATERAL LOWER LOBE PNEUMONIA HX RSV INFECTION -- Possible underlying COPD given emphysematous changes on imaging -- sputum culture: Normal michael -- Doing better yesterday, but today feeling more short of breath, increasing productive cough Denies problems with swallowing -- Repeat chest x-ray:No change in the hazy bibasilar airspace opacities likely representing a pneumonia. This could be due to aspiration --Pulmonary service consulted --Continue: Ceftri + Doxy day #2 Nebs QID Prednisone 40 mg p.o. daily changed to Solu-Medrol 40 mg IV daily Mucinex twice daily IS, FV Will order echocardiogram Chronic Back Pain -- Morphine IV given additionally --Pain much better --Scheduled Tylenol -- PRN Oxy warm compress Lidoderm patch Severe sepsis SIRS plus hypoxemia secondary to above -- BP stable lactic acid normal Hypertension, BP on the lower side--> much improved anxiety/mood disorder, at baseline prediabetes as per records, recent outpatient hemoglobin A1c of 5.8 last September 2021 -- BSG 136-149 Monitor ongoing tobacco abuse DVT prophylaxis. Lovenox subcu Full code Disposition Lives at home PT and OT evaluation plan of care discussed with patient in detail and at length all questions answered she is understanding, agreeable, comfortable with the plan of care Admission and Anticipated Discharge Date Admission Date: September 18, 2022 Subjective Follow-up for acute respiratory failure, COPD exacerbation, bilateral pneumonia, etc. Seen resting in bed, on 2 L of oxygen via nasal cannula, not distressed States she feels slightly worse today compared to yesterday Has some dyspnea, able to expectorate phlegm, no chest pain, palpitations, dizziness Back pain improving No other symptoms Review of Systems Review of Systems: all noted and negative except for above Physical Exam Physical Exam: General- oriented x 3, not in distress, speaks in sentences with no effort or accessory muscle use Eyes- anicteric Neck- no JVD Lungs-positive moderate wheezing bilaterally, occasional rhonchi, but with good air entry bilaterally Heart- normal rate, regular rhythm; no murmurs Abdomen- normal bowel sounds, nondistended, soft, nontender Extremities- no pretibial edema, no calf tenderness Neuro- alert, oriented x 3; no gross focal neurologic deficits Skin- warm & dry Results & Data Results & Data ([facility]) Vital Signs (Past 12 Hours) Vital Signs Temp Pulse Pulse Pulse Resp BP Pulse Ox 09/21/22 08:00 100 09/21/22 14:20 83 09/21/22 07:30 72 09/21/22 14:39 82 18 94 09/21/22 11:22 37.2 C 83 18 129/72 93 09/21/22 11:17 82 18 94 09/21/22 08:30 09/21/22 07:38 36.7 C 83 18 153/86 H 100 09/21/22 07:06 87 18 93 O2 Del Method O2 Flow Rate 09/21/22 08:00 Nasal Cannula 3 09/21/22 14:20 09/21/22 07:30 09/21/22 14:39 Nasal Cannula 2 09/21/22 11:22 Nasal Cannula 3 09/21/22 11:17 Nasal Cannula 2 09/21/22 08:30 Nasal Cannula 2 09/21/22 07:38 Nasal Cannula 3 09/21/22 07:06 Nasal Cannula 2 all noted and reviewed including below
[2022-09-21] MEDS: traZODone HCL 50 MG TAB PO SCH (20:12)
[2022-09-21] MEDS: BACLOFEN 10 MG TAB PO PRN (21:03)
[2022-09-22] MEDS: ACETAMINOPHEN 500 MG TAB PO SCH ×3 (06:00→20:32)
[2022-09-22] MEDS: SODIUM CHLOR 7% 4 ML NEB NEB SCH ×2 (07:51→19:59)
[2022-09-22] MEDS: ALBUT/IPRATROP 3MG/0.5MG NEB 3 ML VIAL NEB SCH ×4 (07:51→19:57)
--- NOTE | 2022-09-22 07:52 | Pulmonology Progress Note ---
Date of Service September 22, 2022 Assessment & Plan (1) Acute hypoxemic respiratory failure: (2) Respiratory syncytial virus (RSV): (3) Multifocal pneumonia: (4) Current smoker: (5) Chronic obstructive bronchitis with pulmonary emphysema: (6) Pulmonary hypertension: Plan Chest x-ray 09/21/2022 personally reviewed: Portable film, fair inspiratory effort, patchy opacities appreciated bilateral lower lobes, mild blunting of bilateral costophrenic angle, cardiophrenic angle clear 2D echo 09/18/2022: EF 60-65%, RV systolic function normal, pulmonary artery systolic pressure 40 mmHg -- Acute respiratory failure with hypoxia Likely secondary to multilobar pneumonia Patient also positive for RSV BNP 142 Procalcitonin 0.29 COVID-19 PCR, influenza A/B negative RSV positive --Pulmonary emphysema Increased to be used on a daily basis Recommend outpatient PFT Incruse inhaler started this admission --Current smoker Advised to quit --Pulmonary hypertension Likely type III Treatment of pulmonary emphysema as above Plan: CT of the chest to look at the lung parenchyma Continue with flutter valve and Mucinex Complete the course of antibiotics DC Solu-Medrol, give prednisone for 3 days and then stop Please note the above document was generated using voice recognition software. It may contain grammatical, syntax or spelling errors.Any formal questions or concerns about the content, text or information contained within the body of this dictation should be directly addressed to the provider for clarification. Admission and Anticipated Discharge Date Admission Date: September 18, 2022 Subjective Patient seen and examined at bedside. No acute distress, no adverse events overnight. Patient was saturating 93% on 2 L at the time of examination. She says that whenever she does a little bit of exertion her oxygen goes down into the mid to low 80s. She was emotional today. Emotional support was given She does bring up phlegm which is greenish to yellow. Does complain of mild epistaxis. Fair appetite Review of Systems Review of Systems: All systems reviewed & are unremarkable except as noted in Subjective Physical Exam Physical Exam: Constitutional: No acute distress HEENT: EOMI, PERRLA Respiratory system: Decreased air entry bilaterally, no wheeze, no rhonchi, positive crackles bilaterally CVS: S1-S2 positive, no murmurs or gallops Abdomen: Soft, nontender, nondistended, positive bowel sounds x4, obese Extremities: +2 pulses bilaterally radialis/ dorsalis pedis, no cyanosis, no edema Neuro: Awake alert oriented x3 Psych: Normal mood and affect G/U: No Arellano Skin: no rashes, warm and dry Lymphatic: no cervical or axillary lymphadenopathy Results & Data Results & Data ([facility]) Vital Signs (Past 12 Hours) Vital Signs Temp Pulse Pulse Resp BP Pulse Ox O2 Del Method 09/22/22 06:58 36.7 C 84 20 161/86 H 93 Nasal Cannula 09/22/22 03:38 36.8 C 73 20 154/84 H 94 Nasal Cannula 09/21/22 23:26 36.8 C 82 20 119/74 97 Nasal Cannula 09/21/22 22:00 71 09/21/22 20:42 Nasal Cannula O2 Flow Rate 09/22/22 06:58 2 09/22/22 03:38 2 09/21/22 23:26 2 09/21/22 22:00 09/21/22 20:42 2 Laboratory Results 09/19/22 07:35 09/19/22 07:35 PG Care Time/CCT Total # of Minutes Spent Total Time Spent with Patient: Total time spent is greater than 50% in coordination of care (as documented) at patient's floor/unit and/or counseling patient: Coding Level of Care Code 98958 Subseq Hosp Care Lvl 2 Diagnoses Acute hypoxemic respiratory failure J96.01 Respiratory syncytial virus (RSV) B33.8 Multifocal pneumonia J18.9 Current smoker F17.200 Chronic obstructive bronchitis with pulmonary emphysema J44.9 Pulmonary hypertension I27.20
[2022-09-22] MEDS: UMECLIDINIUM BROMIDE 62.5MCG/BLISTER 7 PUFFS/INHALER INH SCH (08:38)
[2022-09-22] MEDS: hydrOXYzine HCl 25 MG TAB PO PRN ×3 (08:41→19:22)
[2022-09-22] MEDS: oxyCODONE HCL IR 5 MG TAB (IMMEDIATE RELEASE) PO PRN ×3 (08:41→20:31)
[2022-09-22] MEDS: PREGABALIN 100 MG CAP PO SCH ×3 (08:41→20:38)
[2022-09-22] MEDS: guaiFENesin 600 MG TABCR PO SCH ×2 (08:42→22:25)
[2022-09-22] MEDS: buPROPion XL 150 MG TABCR PO SCH (08:42)
[2022-09-22] MEDS: DOXYCYCLINE HYCLATE 100 MG CAP PO SCH ×2 (08:42→20:39)
[2022-09-22] MEDS: DULoxetine HCL 30 MG CAP PO SCH (08:43)
[2022-09-22] MEDS: LIDOCAINE 5% 1 PATCH TD SCH ×2 (08:43→08:54)
[2022-09-22] MEDS: ATORVASTATIN 20 MG TAB PO SCH (08:43)
[2022-09-22] MEDS: lisinopril 40 MG TAB PO SCH (08:43)
[2022-09-22] MEDS: ADVANCED PROBIOTIC 1250 MG CAPSULE PO SCH (08:43)
[2022-09-22] MEDS: NICOTINE 14 MG/24 HR PATCH TD SCH (08:43)
[2022-09-22] MEDS: ENOXAPARIN INJ 40 MG/0.4 ML SYR SQ SCH (08:44)
[2022-09-22] MEDS: POLYETHYLENE (MIRALAX) 17 GM PACK PO SCH (08:44)
[2022-09-22] MEDS ORDERED: methylPREDNISolone 40 MG in SYRINGE 0 ML IV SCH (09:00)
--- NOTE | 2022-09-22 10:35 | Hospitalist Progress Note ---
Date of Service September 22, 2022 Assessment & Plan (1) Acute hypoxemic respiratory failure: Plan: 66-year-old female with history of smoking, no formal diagnosis of COPD, hypertension, prediabetes, mood disorder, presenting with Several day history of cough, shortness of breath. ACUTE HYPOXIC RESPIRATORY FAILURE SECONDARY TO BILATERAL LOWER LOBE PNEUMONIA RSV INFECTION Presented with cough and shortness of breath. Current everyday smoker Afebrile since admission Leukocytosis present Chest x-ray on admission and on 09/21/2022 show bilateral hazy airspace opacities representing pneumonia. Plan; -Continue duo nebs every 6 hours. Continue on IV methylprednisolone 40 mg IV daily. Continue on doxycycline and ceftriaxone; to complete 7-day course. -On umeclidinium as per pulmonology Continue airway clearance with flutter valve, hypertonic saline nebs -Follow-up on echocardiogram CT chest as per pulmonology Chronic Back Pain -- Morphine IV given additionally --Pain much better --Scheduled Tylenol -- PRN Oxy warm compress Lidoderm patch Severe sepsis SIRS plus hypoxemia secondary to above -- BP stable lactic acid normal Hypertension-continue lisinopril. anxiety/mood disorder, at baseline-continue on Cymbalta, bupropion prediabetes as per records, recent outpatient hemoglobin A1c of 5.8 last September 2021 -- BSG 136-149 Monitor ongoing tobacco abuse DVT prophylaxis. Lovenox subcu Full code Disposition-patient lives at home by herself. Her goal is eventually to go back home. Will obtain PT OT evaluation. Will need two-step oxygen evaluation before discharge. Admission and Anticipated Discharge Date Admission Date: September 18, 2022 Subjective Patient seen and examined at bedside. She reports that she had a coughing episode after the breathing treatment. She reports that she continues to feel short of breath on exertion. Review of Systems Review of Systems: All systems reviewed & are unremarkable except as noted in Subjective Physical Exam Physical Exam: General- oriented x 3, not in distress, speaks in sentences with no effort or accessory muscle use Eyes- anicteric Neck- no JVD Lungs-bilateral wheeze present. Heart- normal rate, regular rhythm; no murmurs Abdomen- normal bowel sounds, nondistended, soft, nontender Extremities- no pretibial edema, no calf tenderness Neuro- alert, oriented x 3; no gross focal neurologic deficits Skin- warm & dry Results & Data Results & Data ([place]) Vital Signs (Past 12 Hours) Vital Signs Temp Pulse Resp BP Pulse Ox O2 Del Method O2 Flow Rate 09/22/22 09:29 88 L Nasal Cannula 3 09/22/22 09:20 87 L Nasal Cannula 2 09/22/22 07:53 109 H 16 90 Nasal Cannula 2 09/22/22 06:58 36.7 C 84 20 161/86 H 93 Nasal Cannula 2 09/22/22 03:38 36.8 C 73 20 154/84 H 94 Nasal Cannula 2 09/21/22 23:26 36.8 C 82 20 119/74 97 Nasal Cannula 2 Laboratory Results Laboratory Results WBC 15.80 K/ul (4.8-10.8) H 09/19/22 07:35 RBC 4.43 M/uL (3.93-5.22) 09/19/22 07:35 Hgb 13.1 g/dl (12.0-16.0) 09/19/22 07:35 Hct 38.8 % (34.1-44.9) 09/19/22 07:35 MCV 87.6 fL (80.0-100.0) 09/19/22 07:35 MCH 29.6 pg (25.0-34.0) 09/19/22 07:35 MCHC 33.8 g/dL (32.0-36.0) 09/19/22 07:35 RDW Std Deviation 44.1 fL (36.4-46.3) 09/19/22 07:35 RDW Coeff of Jimi 13.7 % (11.5-14.5) 09/19/22 07:35 Plt Count 281 K/uL (130-400) 09/19/22 07:35 MPV 9.1 fL (9.4-12.3) L 09/19/22 07:35 Immature Gran % (Auto) 0.6 % 09/19/22 07:35 Neut % (Auto) 84.9 % 09/19/22 07:35 Lymph % (Auto) 6.5 % 09/19/22 07:35 [place] % (Auto) 7.7 % 09/19/22 07:35 Eos % (Auto) 0.0 % 09/19/22 07:35 Baso % (Auto) 0.3 % 09/19/22 07:35 Neut # (Auto) 13.44 K/uL (1.4-6.5) H 09/19/22 07:35 Lymph # (Auto) 1.02 K/uL (1.2-3.4) L 09/19/22 07:35 [place] # (Auto) 1.21 K/uL (0.24-0.82) H 09/19/22 07:35 Eos # (Auto) 0.00 K/uL (0-0.50) 09/19/22 07:35 Baso # (Auto) 0.04 K/uL (0-0.2) 09/19/22 07:35 Immature Gran # (Auto) 0.09 K/uL (0.00-0.02) H 09/19/22 07:35 ABG pH 7.43 (7.35-7.45) 09/18/22 21:42 ABG pCO2 50 mmHg (35-46) H 09/18/22 21:42 ABG pO2 69 mmHg (80-95) L 09/18/22 21:42 ABG HCO3 33 mmol/L (19-24) H 09/18/22 21:42 ABG O2 Saturation 95.9 % (90-95) H 09/18/22 21:42 ABG Base Excess 7.5 mEq/L (-9-1.8) H 09/18/22 21:42 Ho Test Pos (Pos) 09/18/22 21:42 Oxygen Given 4L 09/18/22 21:42 Sodium 133 mmol/L (136-145) L 09/19/22 07:35 Potassium 4.7 mmol/L (3.5-5.1) 09/19/22 07:35 Chloride 96 mmol/L (98-107) L 09/19/22 07:35 Carbon Dioxide 31 mmol/L (21-32) 09/19/22 07:35 Anion Gap 6 (3-11) 09/19/22 07:35 BUN 25 mg/dl (6-23) H 09/19/22 07:35 Creatinine 0.85 mg/dl (0.6-1.2) 09/19/22 07:35 Est Cr Clr Drug Dosing 67.7 ml/min 09/19/22 07:35 Est GFR ( Amer) 82.2 ml/min 09/19/22 07:35 Est GFR (Non-Af Amer) 70.9 ml/min 09/19/22 07:35 BUN/Creatinine Ratio 29.4 (10-20) H 09/19/22 07:35 Glucose 136 mg/dl (70-99(Fasting)) H 09/19/22 07:35 Estimat Average Glucose 114 mg/dl 09/18/22 16:55 Hemoglobin A1c 5.6 % (4.5-5.6) 09/18/22 16:55 Lactate 0.7 mmol/L (0.4-2.0) 09/18/22 17:58 Calcium 8.9 mg/dl (8.5-10.1) 09/19/22 07:35 Magnesium 1.9 mg/dl (1.7-2.4) 09/18/22 16:55 Total Bilirubin 0.7 mg/dl (0.2-1.0) 09/18/22 16:55 Direct Bilirubin 0.2 mg/dl (0-0.2) 09/18/22 16:55 AST 13 U/L (13-39) 09/18/22 16:55 ALT 13 U/L (7-52) 09/18/22 16:55 Alkaline Phosphatase 89 U/L (34-104) 09/18/22 16:55 Troponin I High Sens 13.4 pg/ml (0-14) 09/18/22 16:55 B-Natriuretic Peptide 142 pg/ml (0-100) H 09/18/22 17:45 Total Protein 8.0 gm/dl (6.0-8.3) 09/18/22 16:55 Albumin 3.8 gm/dl (3.4-5.0) 09/18/22 16:55 Procalcitonin 0.29 ng/ml (0-0.5) 09/18/22 16:55 Urine Color Dark Yellow 09/18/22 19:25 Urine Appearance Turbid (Clear) A 09/18/22 19:25 Urine pH 6.0 (4.5-7.5) 09/18/22 19:25 Ur Specific [place] > 1.045 (1.000-1.030) H 09/18/22 19:25 Urine Protein 3+ (Negative) H 09/18/22 19:25 Urine Glucose (UA) Trace (Negative) H 09/18/22 19:25 Urine Ketones Trace (Negative) H 09/18/22 19: Urine Blood 2+ (Negative) H 09/18/22 19:25 Urine Nitrite Positive (Negative) A 09/18/22 19:25 Urine Bilirubin 1+ (Negative) H 09/18/22 19:25 Urine Urobilinogen Negative (Negative) 09/18/22 19:25 Ur Leukocyte Esterase 1+ (Negative) H 09/18/22 19:25 Urine WBC (Auto) >30 /hpf (0-5) H 09/18/22 19:25 Urine RBC (Auto) 10-30 /hpf (0-4) H 09/18/22 19: U Hyaline Cast (Auto) 5-10 /lpf (0-5) H 09/18/22 19:25 U Epithel Cells (Auto) >30 /lpf (0-5) H 09/18/22 19:25 Urine Bacteria (Auto) Negative (Negative) 09/18/22 19: Urine Crystals Not Reportable 09/18/22 19: Other Crystals Talc (None Prsent) 09/18/22 19:25 Urine Mucus Present (None Prsent) A 09/18/22 19:25 SARS-CoV-2 (PCR) NEGATIVE (Negative) 09/18/22 17:33 Influenza Type A (PCR) Negative (Neg) 09/18/22 17:33 Influenza Type B (PCR) Negative (Neg) 09/18/22 17:33 RSV (RT-PCR) Positive (Neg) A* 09/18/22 17:33 Impressions Chest X-Ray 09/21/22 10:33 XR chest 1V portable HISTORY: Pneumonia. Follow-up. COMPARISON: Chest 09/18/2022. FINDINGS: No pneumothorax. There are low lung volumes. Patchy bibasilar densities most pronounced on the right. This is similar to the prior study. The heart is normal in size. Cervical and thoracic spinal fusion hardware again noted. No significant pleural effusions. IMPRESSION: No change in the hazy bibasilar airspace opacities likely representing a pneumonia. This could be due to aspiration ACT 112: Negative or not required by law. Electronically signed by: Jef Jade M.D. 09/21/2022 11:04 AM
[2022-09-22] MEDS: cefTRIAXone SODIUM 2,000 MG in DEXTROSE 5% 50 ML IV SCH (14:29)
--- NOTE | 2022-09-22 15:28 | CT Scan Report ---
CT chest diagnostic wo con CT DOSE: 550.25 mGy.cm HISTORY: Shortness of breath. Follow-up pneumonia. r/o infiltrate/ Edema TECHNIQUE: Multiaxial CT images of the chest were performed without contrast. A dose lowering techni que was utilized adhering to the principles of ALARA. COMPARISON: Chest x-ray 09/21/2022. Chest CTA 01/29/2019. FINDINGS: The central airways are patent. No pneumothorax. No pleural effusions. Mild emphysema again noted. There is a 6 cm groundglass airspace opacity within the right lung apex demonstrating interlo bular septal thickening. Multiple additional scattered tree-in-bud nodular opacities seen throughout the lungs. There are also patchy consolidative airspace opacities within the right lower lobe. These findings favor an atypical pneumonia. Cervical spinal fusion hardware and thoracic spinal fusion hard mckenzie is noted. Prior vertebroplasty within the thoracolumbar spine. Degenerative changes within the s houlders. Limited views of the upper abdomen demonstrate a normal liver, spleen, and adrenal glands. There is a cortical calcification within the left kidney. Normal caliber esophagus. Normal thyroid gl and. The heart is normal in size. No pericardial effusion. No mediastinal or hilar lymphadenopathy. T he ascending thoracic aorta measures up to 4 cm in diameter. Severe calcified plaque within the coron jermaine arteries. There are few small peripheral densities within the left upper lobe. IMPRESSION: 1. Multifocal airspace opacities with tree-in-bud nodular opacities most pronounced within the right lung. This is consistent with an atypical pneumonia and could be due to a viral process. 2. The right upper lobe groundglass airspace opacity with interlobular septal thickening also favors an atypical pneumonitis. Asymmetric pulmonary edema or less likely pulmonary hemorrhage is also consi dered in the differential diagnosis. [address] follow-up recommended to ensure resolution 3. Mild aneurysmal dilatation of the ascending thoracic aorta measuring 4 cm in diameter. ACT 112: Negative or not required by law. Electronically signed by: Jef Jade M.D. 09/22/2022 3:27 PM
[2022-09-22] MEDS: BACLOFEN 10 MG TAB PO PRN (20:31)
[2022-09-22] MEDS: traZODone HCL 50 MG TAB PO SCH (20:31)
[2022-09-23] MEDS: oxyCODONE HCL IR 5 MG TAB (IMMEDIATE RELEASE) PO PRN ×2 (05:38→20:25)
[2022-09-23] MEDS: ACETAMINOPHEN 500 MG TAB PO SCH ×3 (05:39→21:34)
[2022-09-23] MEDS: ALBUT/IPRATROP 3MG/0.5MG NEB 3 ML VIAL NEB SCH ×4 (07:14→20:32)
[2022-09-23] MEDS: SODIUM CHLOR 7% 4 ML NEB NEB SCH ×2 (07:14→20:32)
--- NOTE | 2022-09-23 07:36 | Pulmonology Progress Note ---
Date of Service September 23, 2022 Assessment & Plan (1) Acute hypoxemic respiratory failure: (2) Respiratory syncytial virus (RSV): (3) Multifocal pneumonia: (4) Current smoker: (5) Chronic obstructive bronchitis with pulmonary emphysema: (6) Pulmonary hypertension: Plan Chest x-ray 09/21/2022 personally reviewed: Portable film, fair inspiratory effort, patchy opacities appreciated bilateral lower lobes, mild blunting of bilateral costophrenic angle, cardiophrenic angle clear CT chest 09/22/2022 personally reviewed: Groundglass opacity appreciated in the right upper lobe, tree-in-bud opacities appreciated bilaterally upper and lower lobes, more pronounced in the right lower lobe Minimal mediastinal lymphadenopathy 2D echo 09/18/2022: EF 60-65%, RV systolic function normal, pulmonary artery systolic pressure 40 mmHg -- Acute respiratory failure with hypoxia Likely secondary to multilobar pneumonia Patient also positive for RSV BNP 142 Procalcitonin 0.29 COVID-19 PCR, influenza A/B negative RSV positive --Pulmonary emphysema Increased to be used on a daily basis Recommend outpatient PFT Incruse inhaler started this admission --Current smoker Advised to quit --Pulmonary hypertension Likely type III Treatment of pulmonary emphysema as above Plan: Continue prednisone for 3 days and then stop Complete the course of antibiotics Continue with flutter valve, Mucinex and hypertonic saline Patient will need repeat CT chest done in 2-6 months Please note the above document was generated using voice recognition software. It may contain grammatical, syntax or spelling errors.Any formal questions or concerns about the content, text or information contained within the body of this dictation should be directly addressed to the provider for clarification. Admission and Anticipated Discharge Date Admission Date: September 18, 2022 Subjective Patient seen and examined at bedside. No acute distress, no adverse events overnight The patient was in a better mood. Saturation was 97% on 2 L nasal cannula. I went down to 1 L. She has been coughing and bringing up clear phlegm. Denies any hemoptysis. Fair appetite, no nausea or vomiting No headache Review of Systems Review of Systems: All systems reviewed & are unremarkable except as noted in Subjective Physical Exam Physical Exam: Constitutional: No acute distress HEENT: EOMI, PERRLA Respiratory system: Decreased air entry bilaterally, no wheeze, no rhonchi, positive crackles bilaterally CVS: S1-S2 positive, no murmurs or gallops Abdomen: Soft, nontender, nondistended, positive bowel sounds x4, obese Extremities: +2 pulses bilaterally radialis/ dorsalis pedis, no cyanosis, no edema Neuro: Awake alert oriented x3 Psych: Normal mood and affect G/U: No Arellano Skin: no rashes, warm and dry Lymphatic: no cervical or axillary lymphadenopathy Results & Data Results & Data ([facility]) Vital Signs (Past 12 Hours) Vital Signs Temp Pulse Pulse Resp BP Pulse Ox O2 Del Method 09/23/22 07:14 82 20 93 Nasal Cannula 09/23/22 04:00 36.6 C 80 20 142/83 H 96 Nasal Cannula 09/23/22 00:08 83 09/22/22 23:59 Nasal Cannula 09/22/22 23:32 36.7 C 72 20 126/74 95 Room Air 09/22/22 20:00 92 H 18 93 Nasal Cannula O2 Flow Rate 09/23/22 07:14 2 09/23/22 04:00 2 09/23/22 00:08 09/22/22 23:59 2 09/22/22 23:32 1 09/22/22 20:00 2 Laboratory Results 09/19/22 07:35 09/19/22 07:35 PG Care Time/CCT Total # of Minutes Spent Total Time Spent with Patient: Total time spent is greater than 50% in coordination of care (as documented) at patient's floor/unit and/or counseling patient: Coding Level of Care Code 58419 Subseq Hosp Care Lvl 2 Diagnoses Acute hypoxemic respiratory failure J96.01 Respiratory syncytial virus (RSV) B33.8 Multifocal pneumonia J18.9 Current smoker F17.200 Chronic obstructive bronchitis with pulmonary emphysema J44.9 Pulmonary hypertension I27.20
[2022-09-23 08:17] LABS: Basophils # (auto) 0.07 K/uL (0-0.2); Basophils % (auto) 0.4 %; Eosinophils # (auto) 0.25 K/uL (0-0.50); Eosinophils % (auto) 1.3 %; Hematocrit (blood only) 37.4 % (34.1-44.9); Hemoglobin 12.3 g/dl (12.0-16.0); Immature Granulocytes # (auto) 0.71 K/uL (0.00-0.02); Immature Granulocytes % (auto) 3.7 %; Lymphocytes % (auto) 22.6 %; Mean Corpuscular Hemoglobin 29.3 pg (25.0-34.0); Mean Corpuscular Hgb Conc 32.9 g/dL (32.0-36.0); Mean Platelet Volume 8.7 fL (9.4-12.3); Monocytes % (auto) 7.4 %; Neutrophils # (auto) 12.26 K/uL (1.4-6.5); Neutrophils % (auto) 64.6 %; Platelet Count 328 K/uL (130-400); RDW Coefficient of Variation 14.1 % (11.5-14.5); RDW Standard Deviation 45.2 fL (36.4-46.3); White Blood Count 18.99 K/ul (4.8-10.8)
[2022-09-23 08:49] LABS: BUN Creatinine Ratio 25.9 (10-20); Calcium 8.6 mg/dl (8.5-10.1); Est GFR (African American) 113.2 ml/min; Est GFR (Non-African American) 97.6 ml/min; Potassium 4.2 mmol/L (3.5-5.1)
[2022-09-23] MEDS: ATORVASTATIN 20 MG TAB PO SCH (09:13)
[2022-09-23] MEDS: predniSONE 20 MG TAB PO SCH (09:13)
[2022-09-23] MEDS: DOXYCYCLINE HYCLATE 100 MG CAP PO SCH ×2 (09:13→20:30)
[2022-09-23] MEDS: buPROPion XL 150 MG TABCR PO SCH (09:13)
[2022-09-23] MEDS: PREGABALIN 100 MG CAP PO SCH ×3 (09:14→20:25)
[2022-09-23] MEDS: UMECLIDINIUM BROMIDE 62.5MCG/BLISTER 7 PUFFS/INHALER INH SCH (09:14)
[2022-09-23] MEDS: ENOXAPARIN INJ 40 MG/0.4 ML SYR SQ SCH (09:14)
[2022-09-23] MEDS: guaiFENesin 600 MG TABCR PO SCH ×2 (09:14→20:26)
[2022-09-23] MEDS: DULoxetine HCL 30 MG CAP PO SCH (09:14)
[2022-09-23] MEDS: ADVANCED PROBIOTIC 1250 MG CAPSULE PO SCH (09:15)
[2022-09-23] MEDS: NICOTINE 14 MG/24 HR PATCH TD SCH (09:15)
[2022-09-23] MEDS: lisinopril 40 MG TAB PO SCH (09:15)
[2022-09-23] MEDS: POLYETHYLENE (MIRALAX) 17 GM PACK PO SCH (09:16)
[2022-09-23] MEDS: LIDOCAINE 5% 1 PATCH TD SCH (09:16)
[2022-09-23] MEDS: hydrOXYzine HCl 25 MG TAB PO PRN ×3 (09:20→20:25)
--- NOTE | 2022-09-23 11:05 | Hospitalist Progress Note ---
Date of Service September 23, 2022 Assessment & Plan (1) Acute hypoxemic respiratory failure: Plan: 66-year-old female with history of smoking, no formal diagnosis of COPD, hypertension, prediabetes, mood disorder, presenting with Several day history of cough, shortness of breath. ACUTE HYPOXIC RESPIRATORY FAILURE SECONDARY TO BILATERAL LOWER LOBE PNEUMONIA RSV INFECTION Presented with cough and shortness of breath. Current everyday smoker Afebrile since admission Leukocytosis present Chest x-ray on admission and on 09/21/2022 show bilateral hazy airspace opacities representing pneumonia. CT chest done on 09/22 shows multifocal airspace opacities with tree-in-bud nodular opacity consistent with atypical pneumonia. Echo shows EF of 60 to 65%. Mild pulmonary hypertension with estimated PASP of 40 Plan; -Continue duo nebs every 6 hours. Continue on doxycycline and ceftriaxone; to complete 7-day course. -On prednisone 40 mg for 3 more days. -On umeclidinium as per pulmonology Continue airway clearance with flutter valve, hypertonic saline nebs Chronic Back Pain -- Morphine IV given additionally --Pain much better --Scheduled Tylenol -- PRN Oxy warm compress Lidoderm patch Severe sepsis SIRS plus hypoxemia secondary to above -- BP stable lactic acid normal Hypertension-continue lisinopril. anxiety/mood disorder, at baseline-continue on Cymbalta, bupropion prediabetes as per records, recent outpatient hemoglobin A1c of 5.8 last September 2021 -- BSG 136-149 Monitor ongoing tobacco abuse DVT prophylaxis. Lovenox subcu Full code Disposition-patient lives at home by herself. Her goal is eventually to go back home. PT evaluation done; recommend home after improvement in respiratory symptoms. Will obtain two-step oxygen evaluation on discharge. Admission and Anticipated Discharge Date Admission Date: September 18, 2022 Subjective Patient seen and examined at bedside. She reports improvement in her breathing. Currently at 2 L of oxygen. No overnight events. Review of Systems Review of Systems: All systems reviewed & are unremarkable except as noted in Subjective Physical Exam Physical Exam: General- oriented x 3, not in distress, speaks in sentences with no effort or accessory muscle use Eyes- anicteric Neck- no JVD Lungs-occasional wheeze heard; improved from yesterday. Heart- normal rate, regular rhythm; no murmurs Abdomen- normal bowel sounds, nondistended, soft, nontender Extremities- no pretibial edema, no calf tenderness Neuro- alert, oriented x 3; no gross focal neurologic deficits Skin- warm & dry Results & Data Results & Data ([facility]) Vital Signs (Past 12 Hours) Vital Signs Temp Pulse Pulse Resp BP Pulse Ox O2 Del Method 09/23/22 10:57 37.0 C 73 18 129/71 94 Nasal Cannula 09/23/22 08:58 37.1 C 86 18 148/74 H 94 Nasal Cannula 09/23/22 08:00 71 09/23/22 07:14 82 20 93 Nasal Cannula 09/23/22 04:00 36.6 C 80 20 142/83 H 96 Nasal Cannula 09/23/22 00:08 83 09/22/22 23:59 Nasal Cannula 09/22/22 23:32 36.7 C 72 20 126/74 95 Room Air O2 Flow Rate 09/23/22 10:57 2 09/23/22 08:58 2 09/23/22 08:00 09/23/22 07:14 2 09/23/22 04:00 2 09/23/22 00:08 09/22/22 23:59 2 09/22/22 23:32 1 Laboratory Results Laboratory Results WBC 18.99 K/ul (4.8-10.8) H 09/23/22 07:49 RBC 4.20 M/uL (3.93-5.22) 09/23/22 07:49 Hgb 12.3 g/dl (12.0-16.0) 09/23/22 07:49 Hct 37.4 % (34.1-44.9) 09/23/22 07:49 MCV 89.0 fL (80.0-100.0) 09/23/22 07:49 MCH 29.3 pg (25.0-34.0) 09/23/22 07:49 MCHC 32.9 g/dL (32.0-36.0) 09/23/22 07:49 RDW Std Deviation 45.2 fL (36.4-46.3) 09/23/22 07:49 RDW Coeff of Jimi 14.1 % (11.5-14.5) 09/23/22 07:49 Plt Count 328 K/uL (130-400) 09/23/22 07:49 MPV 8.7 fL (9.4-12.3) L 09/23/22 07:49 Immature Gran % (Auto) 3.7 % 09/23/22 07:49 Neut % (Auto) 64.6 % 09/23/22 07:49 Lymph % (Auto) 22.6 % 09/23/22 07:49 [place] % (Auto) 7.4 % 09/23/22 07:49 Eos % (Auto) 1.3 % 09/23/22 07:49 Baso % (Auto) 0.4 % 09/23/22 07:49 Neut # (Auto) 12.26 K/uL (1.4-6.5) H 09/23/22 07:49 Lymph # (Auto) 4.30 K/uL (1.2-3.4) H 09/23/22 07:49 [place] # (Auto) 1.40 K/uL (0.24-0.82) H 09/23/22 07:49 Eos # (Auto) 0.25 K/uL (0-0.50) 09/23/22 07:49 Baso # (Auto) 0.07 K/uL (0-0.2) 09/23/22 07:49 Immature Gran # (Auto) 0.71 K/uL (0.00-0.02) H 09/23/22 07:49 ABG pH 7.43 (7.35-7.45) 09/18/22 21:42 ABG pCO2 50 mmHg (35-46) H 09/18/22 21:42 ABG pO2 69 mmHg (80-95) L 09/18/22 21:42 ABG HCO3 33 mmol/L (19-24) H 09/18/22 21:42 ABG O2 Saturation 95.9 % (90-95) H 09/18/22 21:42 ABG Base Excess 7.5 mEq/L (-9-1.8) H 09/18/22 21:42 Ho Test Pos (Pos) 09/18/22 21:42 Oxygen Given 4L 09/18/22 21:42 Sodium 136 mmol/L (136-145) 09/23/22 07:49 Potassium 4.2 mmol/L (3.5-5.1) 09/23/22 07:49 Chloride 96 mmol/L (98-107) L 09/23/22 07:49 Carbon Dioxide 35 mmol/L (21-32) H 09/23/22 07:49 Anion Gap 5 (3-11) 09/23/22 07:49 BUN 14 mg/dl (6-23) 09/23/22 07:49 Creatinine 0.54 mg/dl (0.6-1.2) L 09/23/22 07:49 Est Cr Clr Drug Dosing 107.0 ml/min 09/23/22 07:49 Est GFR ( Amer) 113.2 ml/min 09/23/22 07:49 Est GFR (Non-Af Amer) 97.6 ml/min 09/23/22 07:49 BUN/Creatinine Ratio 25.9 (10-20) H 09/23/22 07:49 Glucose 101 mg/dl (70-99(Fasting)) H 09/23/22 07:49 Estimat Average Glucose 114 mg/dl 09/18/22 16:55 Hemoglobin A1c 5.6 % (4.5-5.6) 09/18/22 16:55 Lactate 0.7 mmol/L (0.4-2.0) 09/18/22 17:58 Calcium 8.6 mg/dl (8.5-10.1) 09/23/22 07:49 Magnesium 1.9 mg/dl (1.7-2.4) 09/18/22 16:55 Total Bilirubin 0.7 mg/dl (0.2-1.0) 09/18/22 16:55 Direct Bilirubin 0.2 mg/dl (0-0.2) 09/18/22 16:55 AST 13 U/L (13-39) 09/18/22 16:55 ALT 13 U/L (7-52) 09/18/22 16:55 Alkaline Phosphatase 89 U/L (34-104) 09/18/22 16:55 Troponin I High Sens 13.4 pg/ml (0-14) 09/18/22 16:55 B-Natriuretic Peptide 142 pg/ml (0-100) H 09/18/22 17:45 Total Protein 8.0 gm/dl (6.0-8.3) 09/18/22 16:55 Albumin 3.8 gm/dl (3.4-5.0) 09/18/22 16:55 Procalcitonin 0.29 ng/ml (0-0.5) 09/18/22 16:55 Urine Color Dark Yellow 09/18/22 19: Urine Appearance Turbid (Clear) A 09/18/22 19:25 Urine pH 6.0 (4.5-7.5) 09/18/22 19:25 Ur Specific [place] > 1.045 (1.000-1.030) H 09/18/22 19: Urine Protein 3+ (Negative) H 09/18/22 19: Urine Glucose (UA) Trace (Negative) H 09/18/22 19: Urine Ketones Trace (Negative) H 09/18/22 19: Urine Blood 2+ (Negative) H 09/18/22 19: Urine Nitrite Positive (Negative) A 09/18/22 19: Urine Bilirubin 1+ (Negative) H 09/18/22 19: Urine Urobilinogen Negative (Negative) 09/18/22 19: Ur Leukocyte Esterase 1+ (Negative) H 09/18/22 19:25 Urine WBC (Auto) >30 /hpf (0-5) H 09/18/22 19:25 Urine RBC (Auto) 10-30 /hpf (0-4) H 09/18/22 19: U Hyaline Cast (Auto) 5-10 /lpf (0-5) H 09/18/22 19:25 U Epithel Cells (Auto) >30 /lpf (0-5) H 09/18/22 19:25 Urine Bacteria (Auto) Negative (Negative) 09/18/22 19: Urine Crystals Not Reportable 09/18/22 19: Other Crystals Talc (None Prsent) 09/18/22 19: Urine Mucus Present (None Prsent) A 09/18/22 19:25 SARS-CoV-2 (PCR) NEGATIVE (Negative) 09/18/22 17: Influenza Type A (PCR) Negative (Neg) 09/18/22 17: Influenza Type B (PCR) Negative (Neg) 09/18/22 17:33 RSV (RT-PCR) Positive (Neg) A* 09/18/22 17:33 Impressions Chest X-Ray 09/21/22 10:33 XR chest 1V portable HISTORY: Pneumonia. Follow-up. COMPARISON: Chest 09/18/2022. FINDINGS: No pneumothorax. There are low lung volumes. Patchy bibasilar densities most pronounced on the right. This is similar to the prior study. The heart is normal in size. Cervical and thoracic spinal fusion hardware again noted. No significant pleural effusions. IMPRESSION: No change in the hazy bibasilar airspace opacities likely representing a pneumonia. This could be due to aspiration ACT 112: Negative or not required by law. Electronically signed by: Jef Jade M.D. 09/21/2022 11:[address] 09/22/22 11:53 CT chest diagnostic wo con CT DOSE: 550.25 mGy.cm HISTORY: Shortness of breath. Follow-up pneumonia. r/o infiltrate/ Edema TECHNIQUE: Multiaxial CT images of the chest were performed without contrast. A dose lowering technique was utilized adhering to the principles of ALARA. COMPARISON: Chest x-ray 09/21/2022. Chest CTA 01/29/2019. FINDINGS: The central airways are patent. No pneumothorax. No pleural effusions. Mild emphysema again noted. There is a 6 cm groundglass airspace opacity within the right lung apex demonstrating interlobular septal thickening. Multiple additional scattered tree-in-bud nodular opacities seen throughout the lungs. There are also patchy consolidative airspace opacities within the right lower lobe. These findings favor an atypical pneumonia. Cervical spinal fusion hardwa re and thoracic spinal fusion hardware is noted. Prior vertebroplasty within the thoracolumbar spine. Degenerative changes within the shoulders. Limited views of the upper abdomen demonstrate a normal liver, spleen, and adrenal glands. There is a cortical calcification within the left kidney. Normal caliber esophagus. Normal thyroid gland. The heart is normal in size. No pericardial effusion. No m ediastinal or hilar lymphadenopathy. The ascending thoracic aorta measures up to 4 cm in diameter. Severe calcified plaque within the coronary arteries. There are few small peripheral densities within the left upper lobe. IMPRESSION: 1. Multifocal airspace opacities with tree-in-bud nodular opacities most pronounced within the right lung. This is consistent with an atypical pneumonia and could be due to a viral process. 2. The right upper lobe groundglass airspace opacity with interlobular septal thickening also favors an atypical pneumonitis. Asymmetric pulmonary edema or less likely pulmonary hemorrhage is also considered in the differential diagnosis. [address] follow-up recommended to ensure resolution 3. Mild aneurysmal dilatation of the ascending thoracic aorta measuring 4 cm in diameter. ACT 112: Negative or not required by law. Electronically signed by: Jef Jade M.D. 09/22/2022 3:27 PM
[2022-09-23] MEDS: cefTRIAXone SODIUM 2,000 MG in DEXTROSE 5% 50 ML IV SCH (11:54)
[2022-09-23] MEDS: BACLOFEN 10 MG TAB PO PRN (17:13)
[2022-09-23] MEDS: traZODone HCL 50 MG TAB PO SCH (20:26)
[2022-09-24] MEDS: oxyCODONE HCL IR 5 MG TAB (IMMEDIATE RELEASE) PO PRN ×2 (05:23→20:17)
[2022-09-24] MEDS: ACETAMINOPHEN 500 MG TAB PO SCH ×3 (05:23→20:12)
[2022-09-24] MEDS: BACLOFEN 10 MG TAB PO PRN ×2 (05:32→20:24)
[2022-09-24] MEDS: ALBUT/IPRATROP 3MG/0.5MG NEB 3 ML VIAL NEB SCH ×4 (07:31→20:10)
[2022-09-24] MEDS: SODIUM CHLOR 7% 4 ML NEB NEB SCH ×2 (07:31→20:10)
[2022-09-24] MEDS: UMECLIDINIUM BROMIDE 62.5MCG/BLISTER 7 PUFFS/INHALER INH SCH (08:37)
[2022-09-24] MEDS: POLYETHYLENE (MIRALAX) 17 GM PACK PO SCH (08:38)
[2022-09-24] MEDS: guaiFENesin 600 MG TABCR PO SCH ×2 (08:44→20:14)
[2022-09-24] MEDS: PREGABALIN 100 MG CAP PO SCH ×3 (08:44→20:12)
[2022-09-24] MEDS: hydrOXYzine HCl 25 MG TAB PO PRN ×3 (08:44→20:12)
[2022-09-24] MEDS: ADVANCED PROBIOTIC 1250 MG CAPSULE PO SCH (08:45)
[2022-09-24] MEDS: DOXYCYCLINE HYCLATE 100 MG CAP PO SCH ×2 (08:45→20:18)
[2022-09-24] MEDS: ATORVASTATIN 20 MG TAB PO SCH (08:46)
[2022-09-24] MEDS: predniSONE 20 MG TAB PO SCH (08:46)
[2022-09-24] MEDS: DULoxetine HCL 30 MG CAP PO SCH (08:46)
[2022-09-24] MEDS: lisinopril 40 MG TAB PO SCH (08:46)
[2022-09-24] MEDS: buPROPion XL 150 MG TABCR PO SCH (08:47)
[2022-09-24] MEDS: ENOXAPARIN INJ 40 MG/0.4 ML SYR SQ SCH (08:52)
[2022-09-24] MEDS: NICOTINE 14 MG/24 HR PATCH TD SCH (08:53)
[2022-09-24] MEDS: LIDOCAINE 5% 1 PATCH TD SCH (08:53)
--- NOTE | 2022-09-24 09:10 | Pulmonology Progress Note ---
Date of Service September 24, 2022 Assessment & Plan (1) Acute hypoxemic respiratory failure: (2) Respiratory syncytial virus (RSV): (3) Multifocal pneumonia: (4) Current smoker: (5) Chronic obstructive bronchitis with pulmonary emphysema: (6) Pulmonary hypertension: Plan Chest x-ray 09/21/2022 personally reviewed: Portable film, fair inspiratory effort, patchy opacities appreciated bilateral lower lobes, mild blunting of bilateral costophrenic angle, cardiophrenic angle clear CT chest 09/22/2022 personally reviewed: Groundglass opacity appreciated in the right upper lobe, tree-in-bud opacities appreciated bilaterally upper and lower lobes, more pronounced in the right lower lobe Minimal mediastinal lymphadenopathy 2D echo 09/18/2022: EF 60-65%, RV systolic function normal, pulmonary artery systolic pressure 40 mmHg -- Acute respiratory failure with hypoxia Likely secondary to multilobar pneumonia Patient also positive for RSV BNP 142 Procalcitonin 0.29 COVID-19 PCR, influenza A/B negative RSV positive --Pulmonary emphysema Increased to be used on a daily basis Recommend outpatient PFT Incruse inhaler started this admission --Current smoker Advised to quit --Pulmonary hypertension Likely type III Treatment of pulmonary emphysema as above Plan: Complete the course of antibiotics Continue with flutter valve, Mucinex and hypertonic saline Patient will need repeat CT chest done in 2-6 months No further recommendation from pulmonary perspective. We will sign off. Please call directly with any questions Please note the above document was generated using voice recognition software. It may contain grammatical, syntax or spelling errors.Any formal questions or concerns about the content, text or information contained within the body of this dictation should be directly addressed to the provider for clarification. Admission and Anticipated Discharge Date Admission Date: September 18, 2022 Subjective Patient seen and examined at bedside. No acute distress, no adverse events overnight. Patient was again a little bit emotional today. Emotional support was given She was saturating 97% on 2 L the time of examination. I went down to 1 L. Shortness of breath is improved. No chest pain She is coughing and bringing up phlegm easily. Denies any headache, no nausea, no vomiting. Review of Systems Review of Systems: All systems reviewed & are unremarkable except as noted in Subjective Physical Exam Physical Exam: Constitutional: No acute distress HEENT: EOMI, PERRLA Respiratory system: Decreased air entry bilaterally, no wheeze, no rhonchi, positive crackles bilaterally, more on the right side CVS: S1-S2 positive, no murmurs or gallops Abdomen: Soft, nontender, nondistended, positive bowel sounds x4, obese Extremities: +2 pulses bilaterally radialis/ dorsalis pedis, no cyanosis, no edema Neuro: Awake alert oriented x3 Psych: Normal mood and affect G/U: No Arellano Skin: no rashes, warm and dry Lymphatic: no cervical or axillary lymphadenopathy Results & Data Results & Data ([facility]) Vital Signs (Past 12 Hours) Vital Signs Temp Pulse Pulse Resp BP BP Pulse Ox 09/24/22 07:43 37 C 74 20 171/84 H 97 09/24/22 07:33 69 18 94 09/24/22 03:04 37 C 73 18 164/81 H 91 09/24/22 00:16 36.5 C 09/23/22 23:02 36.2 C L 61 18 109/66 92 09/23/22 22:10 73 09/23/22 21:52 O2 Del Method O2 Flow Rate 09/24/22 07:43 Nasal Cannula 1 09/24/22 07:33 Nasal Cannula 1 09/24/22 03:04 Nasal Cannula 09/24/22 00:16 09/23/22 23:02 Nasal Cannula 1 09/23/22 22:10 09/23/22 21:52 Nasal Cannula 2 Laboratory Results 09/23/22 07:49 09/23/22 07:49 PG Care Time/CCT Total # of Minutes Spent Total Time Spent with Patient: Total time spent is greater than 50% in coordination of care (as documented) at patient's floor/unit and/or counseling patient: Coding Level of Care Code 67469 Subseq Hosp Care Lvl 2 Diagnoses Acute hypoxemic respiratory failure J96.01 Respiratory syncytial virus (RSV) B33.8 Multifocal pneumonia J18.9 Current smoker F17.200 Chronic obstructive bronchitis with pulmonary emphysema J44.9 Pulmonary hypertension I27.20
[2022-09-24 09:55] LABS: Basophils # (auto) 0.05 K/uL (0-0.2); Basophils % (auto) 0.3 %; Eosinophils # (auto) 0.21 K/uL (0-0.50); Eosinophils % (auto) 1.3 %; Hematocrit (blood only) 36.3 % (34.1-44.9); Hemoglobin 12.1 g/dl (12.0-16.0); Immature Granulocytes # (auto) 0.61 K/uL (0.00-0.02); Immature Granulocytes % (auto) 3.9 %; Lymphocytes % (auto) 31.1 %; Mean Corpuscular Hemoglobin 29.2 pg (25.0-34.0); Mean Corpuscular Hgb Conc 33.3 g/dL (32.0-36.0); Mean Corpuscular Volume 87.5 fL (80.0-100.0); Mean Platelet Volume 8.9 fL (9.4-12.3); Monocytes # (auto) 1.19 K/uL (0.24-0.82); Monocytes % (auto) 7.6 %; Neutrophils # (auto) 8.79 K/uL (1.4-6.5); Neutrophils % (auto) 55.8 %; Platelet Count 354 K/uL (130-400); RDW Coefficient of Variation 14.2 % (11.5-14.5); RDW Standard Deviation 45.4 fL (36.4-46.3); Red Blood Count 4.15 M/uL (3.93-5.22); White Blood Count 15.75 K/ul (4.8-10.8)
[2022-09-24 10:18] LABS: BUN Creatinine Ratio 23.1 (10-20); Calcium 8.7 mg/dl (8.5-10.1); Creatinine Clr Calc Pharmacy 111.2 ml/min; Est GFR (African American) 114.6 ml/min; Est GFR (Non-African American) 98.9 ml/min; Magnesium 1.5 mg/dl (1.7-2.4); Potassium 4.2 mmol/L (3.5-5.1)
[2022-09-24] MEDS: cefTRIAXone SODIUM 2,000 MG in DEXTROSE 5% 50 ML IV SCH (11:48)
--- NOTE | 2022-09-24 12:46 | Hospitalist Progress Note ---
Date of Service September 24, 2022 Assessment & Plan (1) Acute hypoxemic respiratory failure: Plan: 66-year-old female with history of smoking, no formal diagnosis of COPD, hypertension, prediabetes, mood disorder, presenting with Several day history of cough, shortness of breath. ACUTE HYPOXIC RESPIRATORY FAILURE SECONDARY TO BILATERAL LOWER LOBE PNEUMONIA RSV INFECTION Presented with cough and shortness of breath. Current everyday smoker Afebrile since admission Leukocytosis present Chest x-ray on admission and on 09/21/2022 show bilateral hazy airspace opacities representing pneumonia. CT chest done on 09/22 shows multifocal airspace opacities with tree-in-bud nodular opacity consistent with atypical pneumonia. Echo shows EF of 60 to 65%. Mild pulmonary hypertension with estimated PASP of 40 Plan; -Continue duo nebs every 6 hours. Continue on doxycycline and ceftriaxone; to complete 7-day course. -On prednisone 40 mg for 2 more days. -On umeclidinium as per pulmonology Continue airway clearance with flutter valve, hypertonic saline nebs Chronic Back Pain --Pain much better --Scheduled Tylenol -- PRN Oxy warm compress Lidoderm patch Severe sepsis SIRS plus hypoxemia secondary to above -- BP stable lactic acid normal Hypertension-continue lisinopril. anxiety/mood disorder, at baseline-continue on Cymbalta, bupropion prediabetes as per records, recent outpatient hemoglobin A1c of 5.8 last September 2021 -- BSG 136-149 Monitor ongoing tobacco abuse DVT prophylaxis. Lovenox subcu Full code Disposition-patient lives at home by herself. Her goal is eventually to go back home. PT evaluation done; recommend home after improvement in respiratory symptoms. Two-step oxygen evaluation done; patient needs to liter at rest and exertion. Prescription provided. Possible discharge in a.m. depending on clinical course. Admission and Anticipated Discharge Date Admission Date: September 18, 2022 Subjective Patient seen and examined at bedside. She is comfortably sitting up on the bed; not in any distress. She reports being short of breath on exertion. Review of Systems Review of Systems: All systems reviewed & are unremarkable except as noted in Subjective Physical Exam Physical Exam: General- oriented x 3, not in distress, speaks in sentences with no effort or accessory muscle use Eyes- anicteric Neck- no JVD Lungs-occasional wheeze heard; improved from yesterday. Heart- normal rate, regular rhythm; no murmurs Abdomen- normal bowel sounds, nondistended, soft, nontender Extremities- no pretibial edema, no calf tenderness Neuro- alert, oriented x 3; no gross focal neurologic deficits Skin- warm & dry Results & Data Results & Data ([facility]) Vital Signs (Past 12 Hours) Vital Signs Temp Pulse Pulse Pulse Pulse Pulse Pulse 09/24/22 06:07 68 09/24/22 11:34 37.0 C 80 09/24/22 11:16 09/24/22 10:07 88 09/24/22 09:57 83 92 H 93 H 85 09/24/22 07:43 37 C 74 09/24/22 07:33 69 09/24/22 03:04 37 C 73 Pulse Resp Resp Resp Resp Resp Resp 09/24/22 06:07 09/24/22 11:34 18 09/24/22 11:16 09/24/22 10:07 18 09/24/22 09:57 83 18 20 22 16 18 09/24/22 07:43 20 09/24/22 07:33 18 09/24/22 03:04 18 BP BP Pulse Ox Pulse Ox Pulse Ox Pulse Ox Pulse Ox 09/24/22 06:07 09/24/22 11:34 129/82 94 09/24/22 11:16 09/24/22 10:07 94 09/24/22 09:57 93 91 83 L 94 09/24/22 07:43 171/84 H 97 09/24/22 07:33 94 09/24/22 03:04 164/81 H 91 Pulse Ox O2 Del Method O2 Flow Rate O2 Flow Rate O2 Flow Rate O2 Flow Rate 09/24/22 06:07 09/24/22 11:34 Nasal Cannula 1 09/24/22 11:16 Nasal Cannula 2 09/24/22 10:07 Nasal Cannula 2 09/24/22 09:57 87 L 2 2 2 09/24/22 07:43 Nasal Cannula 1 09/24/22 07:33 Nasal Cannula 1 09/24/22 03:04 Nasal Cannula Laboratory Results Laboratory Results WBC 15.75 K/ul (4.8-10.8) H 09/24/22 09:18 RBC 4.15 M/uL (3.93-5.22) 09/24/22 09:18 Hgb 12.1 g/dl (12.0-16.0) 09/24/22 09:18 Hct 36.3 % (34.1-44.9) 09/24/22 09:18 MCV 87.5 fL (80.0-100.0) 09/24/22 09:18 MCH 29.2 pg (25.0-34.0) 09/24/22 09:18 MCHC 33.3 g/dL (32.0-36.0) 09/24/22 09:18 RDW Std Deviation 45.4 fL (36.4-46.3) 09/24/22 09:18 RDW Coeff of Jimi 14.2 % (11.5-14.5) 09/24/22 09:18 Plt Count 354 K/uL (130-400) 09/24/22 09:18 MPV 8.9 fL (9.4-12.3) L 09/24/22 09:18 Immature Gran % (Auto) 3.9 % 09/24/22 09:18 Neut % (Auto) 55.8 % 09/24/22 09:18 Lymph % (Auto) 31.1 % 09/24/22 09:18 [place] % (Auto) 7.6 % 09/24/22 09:18 Eos % (Auto) 1.3 % 09/24/22 09:18 Baso % (Auto) 0.3 % 09/24/22 09:18 Neut # (Auto) 8.79 K/uL (1.4-6.5) H 09/24/22 09:18 Lymph # (Auto) 4.90 K/uL (1.2-3.4) H 09/24/22 09:18 [place] # (Auto) 1.19 K/uL (0.24-0.82) H 09/24/22 09:18 Eos # (Auto) 0.21 K/uL (0-0.50) 09/24/22 09:18 Baso # (Auto) 0.05 K/uL (0-0.2) 09/24/22 09:18 Immature Gran # (Auto) 0.61 K/uL (0.00-0.02) H 09/24/22 09:18 ABG pH 7.43 (7.35-7.45) 09/18/22 21:42 ABG pCO2 50 mmHg (35-46) H 09/18/22 21:42 ABG pO2 69 mmHg (80-95) L 09/18/22 21:42 ABG HCO3 33 mmol/L (19-24) H 09/18/22 21:42 ABG O2 Saturation 95.9 % (90-95) H 09/18/22 21:42 ABG Base Excess 7.5 mEq/L (-9-1.8) H 09/18/22 21:42 Ho Test Pos (Pos) 09/18/22 21:42 Oxygen Given 4L 09/18/22 21:42 Sodium 136 mmol/L (136-145) 09/24/22 09:18 Potassium 4.2 mmol/L (3.5-5.1) 09/24/22 09:18 Chloride 96 mmol/L (98-107) L 09/24/22 09:18 Carbon Dioxide 36 mmol/L (21-32) H 09/24/22 09:18 Anion Gap 4 (3-11) 09/24/22 09:18 BUN 12 mg/dl (6-23) 09/24/22 09:18 Creatinine 0.52 mg/dl (0.6-1.2) L 09/24/22 09:18 Est Cr Clr Drug Dosing 111.2 ml/min 09/24/22 09:18 Est GFR ( Amer) 114.6 ml/min 09/24/22 09:18 Est GFR (Non-Af Amer) 98.9 ml/min 09/24/22 09:18 BUN/Creatinine Ratio 23.1 (10-20) H 09/24/22 09:18 Glucose 101 mg/dl (70-99(Fasting)) H 09/24/22 09:18 Estimat Average Glucose 114 mg/dl 09/18/22 16:55 Hemoglobin A1c 5.6 % (4.5-5.6) 09/18/22 16:55 Lactate 0.7 mmol/L (0.4-2.0) 09/18/22 17:58 Calcium 8.7 mg/dl (8.5-10.1) 09/24/22 09:18 Magnesium 1.5 mg/dl (1.7-2.4) L 09/24/22 09:18 Total Bilirubin 0.7 mg/dl (0.2-1.0) 09/18/22 16:55 Direct Bilirubin 0.2 mg/dl (0-0.2) 09/18/22 16:55 AST 13 U/L (13-39) 09/18/22 16:55 ALT 13 U/L (7-52) 09/18/22 16:55 Alkaline Phosphatase 89 U/L (34-104) 09/18/22 16:55 Troponin I High Sens 13.4 pg/ml (0-14) 09/18/22 16:55 B-Natriuretic Peptide 142 pg/ml (0-100) H 09/18/22 17:45 Total Protein 8.0 gm/dl (6.0-8.3) 09/18/22 16:55 Albumin 3.8 gm/dl (3.4-5.0) 09/18/22 16:55 Procalcitonin 0.29 ng/ml (0-0.5) 09/18/22 16:55 Urine Color Dark Yellow 09/18/22 19:25 Urine Appearance Turbid (Clear) A 09/18/22 19:25 Urine pH 6.0 (4.5-7.5) 09/18/22 19:25 Ur Specific [place] > 1.045 (1.000-1.030) H 09/18/22 19:25 Urine Protein 3+ (Negative) H 09/18/22 19:25 Urine Glucose (UA) Trace (Negative) H 09/18/22 19:25 Urine Ketones Trace (Negative) H 09/18/22 19:25 Urine Blood 2+ (Negative) H 09/18/22 19:25 Urine Nitrite Positive (Negative) A 09/18/22 19:25 Urine Bilirubin 1+ (Negative) H 09/18/22 19:25 Urine Urobilinogen Negative (Negative) 09/18/22 19:25 Ur Leukocyte Esterase 1+ (Negative) H 09/18/22 19:25 Urine WBC (Auto) >30 /hpf (0-5) H 09/18/22 19:25 Urine RBC (Auto) 10-30 /hpf (0-4) H 09/18/22 19:25 U Hyaline Cast (Auto) 5-10 /lpf (0-5) H 09/18/22 19:25 U Epithel Cells (Auto) >30 /lpf (0-5) H 09/18/22 19:25 Urine Bacteria (Auto) Negative (Negative) 09/18/22 19:25 Urine Crystals Not Reportable 09/18/22 19:25 Other Crystals Talc (None Prsent) 09/18/22 19:25 Urine Mucus Present (None Prsent) A 09/18/22 19:25 SARS-CoV-2 (PCR) NEGATIVE (Negative) 09/18/22 17:33 Influenza Type A (PCR) Negative (Neg) 09/18/22 17:33 Influenza Type B (PCR) Negative (Neg) 09/18/22 17:33 RSV (RT-PCR) Positive (Neg) A* 09/18/22 17:33 Impressions Chest X-Ray 09/21/22 10:33 XR chest 1V portable HISTORY: Pneumonia. Follow-up. COMPARISON: Chest 09/18/2022. FINDINGS: No pneumothorax. There are low lung volumes. Patchy bibasilar densities most pronounced on the right. This is similar to the prior study. The heart is normal in size. Cervical and thoracic spinal fusion hardware again noted. No significant pleural effusions. IMPRESSION: No change in the hazy bibasilar airspace opacities likely representing a pneumonia. This could be due to aspiration ACT 112: Negative or not required by law. Electronically signed by: Jef Jade M.D. 09/21/2022 11:[address] 09/22/22 11:53 CT chest diagnostic wo con CT DOSE: 550.25 mGy.cm HISTORY: Shortness of breath. Follow-up pneumonia. r/o infiltrate/ Edema TECHNIQUE: Multiaxial CT images of the chest were performed without contrast. A dose lowering technique was utilized adhering to the principles of ALARA. COMPARISON: Chest x-ray 09/21/2022. Chest CTA 01/29/2019. FINDINGS: The central airways are patent. No pneumothorax. No pleural effusions. Mild emphysema again noted. There is a 6 cm groundglass airspace opacity within the right lung apex demonstrating interlobular septal thickening. Multiple additional scattered tree-in-bud nodular opacities seen throughout the lungs. There are also patchy consolidative airspace opacities within the right lower lobe. These findings favor an atypical pneumonia. Cervical spinal fusion hardware and thoracic spinal fusion hardware is noted. Prior vertebroplasty within the thoracolumbar spine. Degenerative changes within the shoulders. Limited views of the upper abdomen demonstrate a normal liver, spleen, and adrenal glands. There is a cortical calcification within the left kidney. Normal caliber esophagus. Normal thyroid gland. The heart is normal in size. No pericardial effusion. No mediastinal or hilar lymphadenopathy. The ascending thoracic aorta measures up to 4 cm in diameter. Severe calcified plaque within the coronary arteries. There are few small peripheral densities within the left upper lobe. IMPRESSION: 1. Multifocal airspace opacities with tree-in-bud nodular opacities most pronounced within the right lung. This is consistent with an atypical pneumonia and could be due to a viral process. 2. The right upper lobe groundglass airspace opacity with interlobular septal thickening also favors an atypical pneumonitis. Asymmetric pulmonary edema or less likely pulmonary hemorrhage is also considered in the differential diagnosis. [address] follow-up recommended to ensure resolution 3. Mild aneurysmal dilatation of the ascending thoracic aorta measuring 4 cm in diameter. ACT 112: Negative or not required by law. Electronically signed by: Jef Jade M.D. 09/22/2022 3:27 PM
[2022-09-24] MEDS ORDERED: ALPRAZolam 0.25 MG TABLET PO ONE (14:26)
[2022-09-24] MEDS: traZODone HCL 50 MG TAB PO SCH (20:13)
[2022-09-25] MEDS: oxyCODONE HCL IR 5 MG TAB (IMMEDIATE RELEASE) PO PRN ×2 (02:35→16:15)
[2022-09-25] MEDS ORDERED: oxyCODONE HCL IR 5 MG TAB (IMMEDIATE RELEASE) PO STA (02:48)
[2022-09-25] MEDS: ACETAMINOPHEN 500 MG TAB PO SCH ×3 (05:57→22:01)
[2022-09-25] MEDS: BACLOFEN 10 MG TAB PO PRN ×2 (06:02→16:16)
[2022-09-25 07:04] LABS: Basophils # (auto) 0.03 K/uL (0-0.2); Basophils % (auto) 0.2 %; Eosinophils # (auto) 0.19 K/uL (0-0.50); Eosinophils % (auto) 1.4 %; Hematocrit (blood only) 37.1 % (34.1-44.9); Hemoglobin 12.1 g/dl (12.0-16.0); Immature Granulocytes # (auto) 0.52 K/uL (0.00-0.02); Immature Granulocytes % (auto) 3.9 %; Lymphocytes # (auto) 4.63 K/uL (1.2-3.4); Lymphocytes % (auto) 34.4 %; Mean Corpuscular Hgb Conc 32.6 g/dL (32.0-36.0); Mean Platelet Volume 8.9 fL (9.4-12.3); Monocytes # (auto) 1.14 K/uL (0.24-0.82); Monocytes % (auto) 8.5 %; Neutrophils # (auto) 6.96 K/uL (1.4-6.5); Neutrophils % (auto) 51.6 %; Platelet Count 340 K/uL (130-400); RDW Coefficient of Variation 14.3 % (11.5-14.5); RDW Standard Deviation 46.4 fL (36.4-46.3); Red Blood Count 4.17 M/uL (3.93-5.22); White Blood Count 13.47 K/ul (4.8-10.8)
[2022-09-25] MEDS: ALBUT/IPRATROP 3MG/0.5MG NEB 3 ML VIAL NEB SCH ×4 (07:08→19:56)
[2022-09-25 07:24] LABS: Albumin Level 3.1 gm/dl (3.4-5.0); BUN Creatinine Ratio 26.2 (10-20); Bilirubin,Total 0.2 mg/dl (0.2-1.0); Calcium 8.7 mg/dl (8.5-10.1); Creatinine Clr Calc Pharmacy 94.9 ml/min; Est GFR (African American) 108.7 ml/min; Est GFR (Non-African American) 93.8 ml/min; Globulin 3.2 gm/dl (2.5-4.0); Potassium 4.4 mmol/L (3.5-5.1); Total Protein 6.3 gm/dl (6.0-8.3)
[2022-09-25] MEDS: PREGABALIN 100 MG CAP PO SCH ×3 (07:24→20:18)
[2022-09-25] MEDS: buPROPion XL 150 MG TABCR PO SCH (07:24)
[2022-09-25] MEDS: lisinopril 40 MG TAB PO SCH (07:24)
[2022-09-25] MEDS: ATORVASTATIN 20 MG TAB PO SCH (07:25)
[2022-09-25] MEDS: predniSONE 20 MG TAB PO SCH (07:25)
[2022-09-25] MEDS: ADVANCED PROBIOTIC 1250 MG CAPSULE PO SCH (07:25)
[2022-09-25] MEDS: DULoxetine HCL 30 MG CAP PO SCH (07:25)
[2022-09-25] MEDS: guaiFENesin 600 MG TABCR PO SCH ×2 (07:26→20:14)
[2022-09-25] MEDS: LIDOCAINE 5% 1 PATCH TD SCH (07:27)
[2022-09-25] MEDS: ENOXAPARIN INJ 40 MG/0.4 ML SYR SQ SCH (07:27)
[2022-09-25] MEDS: POLYETHYLENE (MIRALAX) 17 GM PACK PO SCH (07:28)
[2022-09-25] MEDS: UMECLIDINIUM BROMIDE 62.5MCG/BLISTER 7 PUFFS/INHALER INH SCH (07:28)
[2022-09-25] MEDS: NICOTINE 14 MG/24 HR PATCH TD SCH (07:28)
[2022-09-25] MEDS: SODIUM CHLOR 7% 4 ML NEB NEB SCH ×2 (07:47→19:56)
[2022-09-25] MEDS: hydrOXYzine HCl 25 MG TAB PO PRN ×3 (08:23→19:22)
[2022-09-25] MEDS: DOXYCYCLINE HYCLATE 100 MG CAP PO SCH ×2 (08:24→20:18)
--- NOTE | 2022-09-25 09:28 | Pulmonology Progress Note ---
Date of Service September 25, 2022 Assessment & Plan (1) Acute hypoxemic respiratory failure: (2) Respiratory syncytial virus (RSV): (3) Multifocal pneumonia: (4) Current smoker: (5) Chronic obstructive bronchitis with pulmonary emphysema: (6) Pulmonary hypertension: Plan Chest x-ray 09/21/2022 personally reviewed: Portable film, fair inspiratory effort, patchy opacities appreciated bilateral lower lobes, mild blunting of bilateral costophrenic angle, cardiophrenic angle clear CT chest 09/22/2022 personally reviewed: Groundglass opacity appreciated in the right upper lobe, tree-in-bud opacities appreciated bilaterally upper and lower lobes, more pronounced in the right lower lobe Minimal mediastinal lymphadenopathy 2D echo 09/18/2022: EF 60-65%, RV systolic function normal, pulmonary artery systolic pressure 40 mmHg -- Acute respiratory failure with hypoxia Likely secondary to multilobar pneumonia Patient also positive for RSV BNP 142 Procalcitonin 0.29 COVID-19 PCR, influenza A/B negative RSV positive --Pulmonary emphysema Increased to be used on a daily basis Recommend outpatient PFT Incruse inhaler started this admission --Current smoker Advised to quit --Pulmonary hypertension Likely type III Treatment of pulmonary emphysema as above Plan: Complete the course of antibiotics Continue with flutter valve, Mucinex and hypertonic saline even on discharge Incruse inhaler to be used on a daily basis on discharge as well Go down on prednisone to 20 mg for 3 days and then stop Patient will need repeat CT chest done in 2-6 months Please note the above document was generated using voice recognition software. It may contain grammatical, syntax or spelling errors.Any formal questions or concerns about the content, text or information contained within the body of this dictation should be directly addressed to the provider for clarification. Admission and Anticipated Discharge Date Admission Date: September 18, 2022 Subjective Patient seen and examined at bedside. No acute distress, no adverse events overnight. Patient was saturating 96% on 2 L. I went down to 1 L. She is feeling better. Cough has decreased in intensity. It is getting more clear. Denies any hemoptysis No chest pain, fair appetite, no nausea or vomiting No headache Review of Systems Review of Systems: All systems reviewed & are unremarkable except as noted in Subjective Physical Exam Physical Exam: Constitutional: No acute distress HEENT: EOMI, PERRLA Respiratory system: Decreased air entry bilaterally, no wheeze, no rhonchi, pos itive crackles bilaterally, more on the right side CVS: S1-S2 positive, no murmurs or gallops Abdomen: Soft, nontender, nondistended, positive bowel sounds x4, obese Extremities: +2 pulses bilaterally radialis/ dorsalis pedis, no cyanosis, no edema Neuro: Awake alert oriented x3 Psych: Normal mood and affect G/U: No Arellano Skin: no rashes, warm and dry Lymphatic: no cervical or axillary lymphadenopathy Results & Data Results & Data ([facility]) Vital Signs (Past 12 Hours) Vital Signs Temp Pulse Pulse Pulse Resp BP BP 09/25/22 08:21 36.6 C 77 19 117/78 09/25/22 07:10 70 18 09/25/22 05:12 36.7 C 65 20 108/69 09/24/22 22:26 36.6 C 64 18 98/62 L 09/24/22 22:02 72 Pulse Ox O2 Del Method O2 Flow Rate 09/25/22 08:21 93 Nasal Cannula 09/25/22 07:10 94 Nasal Cannula 1 09/25/22 05:12 91 Nasal Cannula 1 09/24/22 22:26 93 Nasal Cannula 2 09/24/22 22:02 Laboratory Results 09/25/22 06:24 09/25/22 06:24 PG Care Time/CCT Total # of Minutes Spent Total Time Spent with Patient: Total time spent is greater than 50% in coordination of care (as documented) at patient's floor/unit and/or counseling patient: Coding Level of Care Code 97449 Subseq Hosp Care Lvl 2 Diagnoses Acute hypoxemic respiratory failure J96.01 Respiratory syncytial virus (RSV) B33.8 Multifocal pneumonia J18.9 Current smoker F17.200 Chronic obstructive bronchitis with pulmonary emphysema J44.9 Pulmonary hypertension I27.20
--- NOTE | 2022-09-25 10:37 | Hospitalist Progress Note ---
Date of Service September 25, 2022 Assessment & Plan (1) Acute hypoxemic respiratory failure: Plan: 66-year-old female with history of smoking, no formal diagnosis of COPD, hypertension, prediabetes, mood disorder, presenting with Several day history of cough, shortness of breath. ACUTE HYPOXIC RESPIRATORY FAILURE SECONDARY TO BILATERAL LOWER LOBE PNEUMONIA RSV INFECTION Presented with cough and shortness of breath. Current everyday smoker Afebrile since admission Leukocytosis present Chest x-ray on admission and on 09/21/2022 show bilateral hazy airspace opacities representing pneumonia. CT chest done on 09/22 shows multifocal airspace opacities with tree-in-bud nodular opacity consistent with atypical pneumonia. Echo shows EF of 60 to 65%. Mild pulmonary hypertension with estimated PASP of 40 Plan; -Continue duo nebs every 6 hours. Continue on doxycycline and ceftriaxone; to complete 7-day course. -On prednisone 40 mg for 1 more days. -On umeclidinium as per pulmonology Continue airway clearance with flutter valve, hypertonic saline nebs Chronic Back Pain --Pain much better --Scheduled Tylenol -- PRN Oxy warm compress Lidoderm patch Severe sepsis SIRS plus hypoxemia secondary to above -- BP stable lactic acid normal Hypertension-continue lisinopril. anxiety/mood disorder, at baseline-continue on Cymbalta, bupropion prediabetes as per records, recent outpatient hemoglobin A1c of 5.8 last September 2021 -- BSG 136-149 Monitor ongoing tobacco abuse DVT prophylaxis. Lovenox subcu Full code Disposition-patient lives at home by herself. Her goal is eventually to go back home. PT evaluation done; recommend home after improvement in respiratory symptoms. Two-step oxygen evaluation done; patient needs to liter at rest and exertion. Prescription provided. Continue to be hospitalized due to shortness of breath on exertion. Possible discharge in a.m. Admission and Anticipated Discharge Date Admission Date: September 18, 2022 Subjective Patient seen and examined at bedside. Patient reports improvement in shortness of breath after the breathing treatment. She is currently on 2 L of oxygen saturating well. Afebrile overnight. Review of Systems Review of Systems: All systems reviewed & are unremarkable except as noted in Subjective Physical Exam Physical Exam: General- oriented x 3, not in distress, speaks in sentences with no effort or accessory muscle use Eyes- anicteric Neck- no JVD Lungs-occasional wheeze heard; improved from yesterday. Heart- normal rate, regular rhythm; no murmurs Abdomen- normal bowel sounds, nondistended, soft, nontender Extremities- no pretibial edema, no calf tenderness Neuro- alert, oriented x 3; no gross focal neurologic deficits Skin- warm & dry Results & Data Results & Data ([facility]) Vital Signs (Past 12 Hours) Vital Signs Temp Pulse Pulse Resp BP BP Pulse Ox 09/25/22 08:21 36.6 C 77 19 117/78 93 09/25/22 07:10 70 18 94 09/25/22 05:12 36.7 C 65 20 108/69 91 O2 Del Method O2 Flow Rate 09/25/22 08:21 Nasal Cannula 09/25/22 07:10 Nasal Cannula 1 09/25/22 05:12 Nasal Cannula 1 Laboratory Results Laboratory Results WBC 13.47 K/ul (4.8-10.8) H 09/25/22 06:24 RBC 4.17 M/uL (3.93-5.22) 09/25/22 06:24 Hgb 12.1 g/dl (12.0-16.0) 09/25/22 06:24 Hct 37.1 % (34.1-44.9) 09/25/22 06:24 MCV 89.0 fL (80.0-100.0) 09/25/22 06:24 MCH 29.0 pg (25.0-34.0) 09/25/22 06:24 MCHC 32.6 g/dL (32.0-36.0) 09/25/22 06:24 RDW Std Deviation 46.4 fL (36.4-46.3) H 09/25/22 06:24 RDW Coeff of Jimi 14.3 % (11.5-14.5) 09/25/22 06:24 Plt Count 340 K/uL (130-400) 09/25/22 06:24 MPV 8.9 fL (9.4-12.3) L 09/25/22 06:24 Immature Gran % (Auto) 3.9 % 09/25/22 06:24 Neut % (Auto) 51.6 % 09/25/22 06:24 Lymph % (Auto) 34.4 % 09/25/22 06:24 [place] % (Auto) 8.5 % 09/25/22 06:24 Eos % (Auto) 1.4 % 09/25/22 06:24 Baso % (Auto) 0.2 % 09/25/22 06:24 Neut # (Auto) 6.96 K/uL (1.4-6.5) H 09/25/22 06:24 Lymph # (Auto) 4.63 K/uL (1.2-3.4) H 09/25/22 06:24 [place] # (Auto) 1.14 K/uL (0.24-0.82) H 09/25/22 06:24 Eos # (Auto) 0.19 K/uL (0-0.50) 09/25/22 06:24 Baso # (Auto) 0.03 K/uL (0-0.2) 09/25/22 06:24 Immature Gran # (Auto) 0.52 K/uL (0.00-0.02) H 09/25/22 06:24 ABG pH 7.43 (7.35-7.45) 09/18/22 21:42 ABG pCO2 50 mmHg (35-46) H 09/18/22 21:42 ABG pO2 69 mmHg (80-95) L 09/18/22 21:42 ABG HCO3 33 mmol/L (19-24) H 09/18/22 21:42 ABG O2 Saturation 95.9 % (90-95) H 09/18/22 21:42 ABG Base Excess 7.5 mEq/L (-9-1.8) H 09/18/22 21:42 Ho Test Pos (Pos) 09/18/22 21:42 Oxygen Given 4L 09/18/22 21:42 Sodium 137 mmol/L (136-145) 09/25/22 06:24 Potassium 4.4 mmol/L (3.5-5.1) 09/25/22 06:24 Chloride 96 mmol/L (98-107) L 09/25/22 06:24 Carbon Dioxide 38 mmol/L (21-32) H 09/25/22 06:24 Anion Gap 3 (3-11) 09/25/22 06:24 BUN 16 mg/dl (6-23) 09/25/22 06:24 Creatinine 0.61 mg/dl (0.6-1.2) 09/25/22 06:24 Est Cr Clr Drug Dosing 94.9 ml/min 09/25/22 06:24 Est GFR ( Amer) 108.7 ml/min 09/25/22 06:24 Est GFR (Non-Af Amer) 93.8 ml/min 09/25/22 06:24 BUN/Creatinine Ratio 26.2 (10-20) H 09/25/22 06:24 Glucose 92 mg/dl (70-99(Fasting)) 09/25/22 06:24 Estimat Average Glucose 114 mg/dl 09/18/22 16:55 Hemoglobin A1c 5.6 % (4.5-5.6) 09/18/22 16:55 Lactate 0.7 mmol/L (0.4-2.0) 09/18/22 17:58 Calcium 8.7 mg/dl (8.5-10.1) 09/25/22 06:24 Magnesium 1.5 mg/dl (1.7-2.4) L 09/24/22 09:18 Total Bilirubin 0.2 mg/dl (0.2-1.0) 09/25/22 06:24 Direct Bilirubin 0.2 mg/dl (0-0.2) 09/18/22 16:55 AST 10 U/L (13-39) L 09/25/22 06:24 ALT 22 U/L (7-52) 09/25/22 06:24 Alkaline Phosphatase 63 U/L (34-104) 09/25/22 06:24 Troponin I High Sens 13.4 pg/ml (0-14) 09/18/22 16:55 B-Natriuretic Peptide 142 pg/ml (0-100) H 09/18/22 17:45 Total Protein 6.3 gm/dl (6.0-8.3) 09/25/22 06:24 Albumin 3.1 gm/dl (3.4-5.0) L 09/25/22 06:24 Globulin 3.2 gm/dl (2.5-4.0) 09/25/22 06:24 Albumin/Globulin Ratio 1.0 (0.9-2) 09/25/22 06:24 Procalcitonin 0.29 ng/ml (0-0.5) 09/18/22 16:55 Urine Color Dark Yellow 09/18/22 19: Urine Appearance Turbid (Clear) A 09/18/22 19: Urine pH 6.0 (4.5-7.5) 09/18/22 19: Ur Specific [place] > 1.045 (1.000-1.030) H 09/18/22 19:25 Urine Protein 3+ (Negative) H 09/18/22 19: Urine Glucose (UA) Trace (Negative) H 09/18/22 19: Urine Ketones Trace (Negative) H 09/18/22 19: Urine Blood 2+ (Negative) H 09/18/22 19: Urine Nitrite Positive (Negative) A 09/18/22: Urine Bilirubin 1+ (Negative) H 09/18/22: Urine Urobilinogen Negative (Negative) 09/18/22 19: Ur Leukocyte Esterase 1+ (Negative) H 09/18/22 19: Urine WBC (Auto) >30 /hpf (0-5) H 09/18/22 19: Urine RBC (Auto) 10-30 /hpf (0-4) H 09/18/22 19: U Hyaline Cast (Auto) 5-10 /lpf (0-5) H 09/18/22 19:25 U Epithel Cells (Auto) >30 /lpf (0-5) H 09/18/22 19:25 Urine Bacteria (Auto) Negative (Negative) 09/18/22 19: Urine Crystals Not Reportable 09/18/22 19: Other Crystals Talc (None Prsent) 09/18/22 19: Urine Mucus Present (None Prsent) A 09/18/22 19:25 SARS-CoV-2 (PCR) NEGATIVE (Negative) 09/18/22 17:33 Influenza Type A (PCR) Negative (Neg) 09/18/22 17: Influenza Type B (PCR) Negative (Neg) 09/18/22 17: RSV (RT-PCR) Positive (Neg) A* 09/18/22 17:33 Impressions Chest X-Ray 09/21/22 10:33 XR chest 1V portable HISTORY: Pneumonia. Follow-up. COMPARISON: Chest 09/18/2022. FINDINGS: No pneumothorax. There are low lung volumes. Patchy bibasilar densities most pronounced on the right. This is similar to the prior study. The heart is normal in size. Cervical and thoracic spinal fusion hardware again noted. No significant pleural effusions. IMPRESSION: No change in the hazy bibasilar airspace opacities likely representing a pneumonia. This could be due to aspiration ACT 112: Negative or not required by law. Electronically signed by: Jef Jade M.D. 09/21/2022 11:[address] 09/22/22 11:53 CT chest diagnostic wo con CT DOSE: 550.25 mGy.cm HISTORY: Shortness of breath. Follow-up pneumonia. r/o infiltrate/ Edema TECHNIQUE: Multiaxial CT images of the chest were performed without contrast. A dose lowering technique was utilized adhering to the principles of ALARA. COMPARISON: Chest x-ray 09/21/2022. Chest CTA 01/29/2019. FINDINGS: The central airways are patent. No pneumothorax. No pleural effusions. Mild emphysema again noted. There is a 6 cm groundglass airspace opacity within the right lung apex demonstrating interlobular septal thickening. Multiple additional scattered tree-in-bud nodular opacities seen throughout the lungs. There are also patchy consolidative airspace opacities within the right lower lobe. These findings favor an atypical pneumonia. Cervical spinal fusion hardware and thoracic spinal fusion hardware is noted. Prior vertebroplasty within the thoracolumbar spine. Degenerative changes within the shoulders. Limited views of the upper abdomen demonstrate a normal liver, spleen, and a drenal glands. There is a cortical calcification within the left kidney. Normal caliber esophagus. Normal thyroid gland. The heart is normal in size. No pericardial effusion. No mediastinal or hilar lymphadenopathy. The ascending thoracic aorta measures up to 4 cm in diameter. Severe calcified plaque within the coronary arteries. There are few small peripheral densities within the left upper lobe. IMPRESSION: 1. Multifocal airspace opacities with tree-in-bud nodular opacities most pronounced within the right lung. This is consistent with an atypical pneumonia and could be due to a viral process. 2. The right upper lobe groundglass airspace opacity with interlobular septal thickening also favors an atypical pneumonitis. Asymmetric pulmonary edema or less likely pulmonary hemorrhage is also considered in the differential diagnosis. [address] follow-up recommended to ensure resolution 3. Mild aneurysmal dilatation of the ascending thoracic aorta measuring 4 cm in diameter. ACT 112: Negative or not required by law. Electronically signed by: Jef Jade M.D. 09/22/2022 3:27 PM
[2022-09-25] MEDS: cefTRIAXone SODIUM 2,000 MG in DEXTROSE 5% 50 ML IV SCH ×2 (12:13→12:48)
[2022-09-25] MEDS: traZODone HCL 50 MG TAB PO SCH (20:18)
[2022-09-26] MEDS: oxyCODONE HCL IR 5 MG TAB (IMMEDIATE RELEASE) PO PRN ×2 (03:08→12:12)
[2022-09-26] MEDS: ACETAMINOPHEN 500 MG TAB PO SCH ×2 (05:40→13:42)
[2022-09-26 06:14] LABS: Basophils # (auto) 0.03 K/uL (0-0.2); Basophils % (auto) 0.2 %; Eosinophils # (auto) 0.23 K/uL (0-0.50); Eosinophils % (auto) 1.5 %; Hematocrit (blood only) 36.5 % (34.1-44.9); Hemoglobin 12.2 g/dl (12.0-16.0); Immature Granulocytes # (auto) 0.47 K/uL (0.00-0.02); Immature Granulocytes % (auto) 3.1 %; Lymphocytes # (auto) 4.49 K/uL (1.2-3.4); Lymphocytes % (auto) 29.6 %; Mean Corpuscular Hemoglobin 28.9 pg (25.0-34.0); Mean Corpuscular Hgb Conc 33.4 g/dL (32.0-36.0); Mean Corpuscular Volume 86.5 fL (80.0-100.0); Mean Platelet Volume 8.7 fL (9.4-12.3); Monocytes # (auto) 1.01 K/uL (0.24-0.82); Monocytes % (auto) 6.6 %; Neutrophils # (auto) 8.96 K/uL (1.4-6.5); Platelet Count 339 K/uL (130-400); RDW Coefficient of Variation 14.3 % (11.5-14.5); RDW Standard Deviation 45.1 fL (36.4-46.3); Red Blood Count 4.22 M/uL (3.93-5.22); White Blood Count 15.19 K/ul (4.8-10.8)
[2022-09-26 06:36] LABS: BUN Creatinine Ratio 31.6 (10-20); Calcium 8.9 mg/dl (8.5-10.1); Creatinine Clr Calc Pharmacy 101.3 ml/min; Est GFR (African American) 111.2 ml/min; Est GFR (Non-African American) 95.9 ml/min; Potassium 4.2 mmol/L (3.5-5.1)
[2022-09-26] MEDS: POLYETHYLENE (MIRALAX) 17 GM PACK PO SCH (07:47)
[2022-09-26] MEDS: hydrOXYzine HCl 25 MG TAB PO PRN ×2 (07:47→12:12)
[2022-09-26] MEDS: UMECLIDINIUM BROMIDE 62.5MCG/BLISTER 7 PUFFS/INHALER INH SCH (07:47)
[2022-09-26] MEDS: guaiFENesin 600 MG TABCR PO SCH (07:48)
[2022-09-26] MEDS: PREGABALIN 100 MG CAP PO SCH ×2 (07:48→13:42)
[2022-09-26] MEDS: buPROPion XL 150 MG TABCR PO SCH (07:48)
[2022-09-26] MEDS: ADVANCED PROBIOTIC 1250 MG CAPSULE PO SCH (07:49)
[2022-09-26] MEDS: ATORVASTATIN 20 MG TAB PO SCH (07:49)
[2022-09-26] MEDS: DULoxetine HCL 30 MG CAP PO SCH (07:49)
[2022-09-26] MEDS: lisinopril 40 MG TAB PO SCH (07:49)
[2022-09-26] MEDS: SODIUM CHLOR 7% 4 ML NEB NEB SCH (07:52)
[2022-09-26] MEDS: ALBUT/IPRATROP 3MG/0.5MG NEB 3 ML VIAL NEB SCH ×3 (07:52→15:20)
[2022-09-26] MEDS: ENOXAPARIN INJ 40 MG/0.4 ML SYR SQ SCH (07:53)
[2022-09-26] MEDS: NICOTINE 14 MG/24 HR PATCH TD SCH (07:54)
[2022-09-26] MEDS: LIDOCAINE 5% 1 PATCH TD SCH (07:54)
--- NOTE | 2022-09-26 08:02 | Pulmonology Progress Note ---
Date of Service September 26, 2022 Assessment & Plan (1) Acute hypoxemic respiratory failure: (2) Respiratory syncytial virus (RSV): (3) Multifocal pneumonia: (4) Current smoker: (5) Chronic obstructive bronchitis with pulmonary emphysema: (6) Pulmonary hypertension: Plan Chest x-ray 09/21/2022 personally reviewed: Portable film, fair inspiratory effort, patchy opacities appreciated bilateral lower lobes, mild blunting of bilateral costophrenic angle, cardiophrenic angle clear CT chest 09/22/2022 personally reviewed: Groundglass opacity appreciated in the right upper lobe, tree-in-bud opacities appreciated bilaterally upper and lower lobes, more pronounced in the right lower lobe Minimal mediastinal lymphadenopathy 2D echo 09/18/2022: EF 60-65%, RV systolic function normal, pulmonary artery systolic pressure 40 mmHg -- Acute respiratory failure with hypoxia Likely secondary to multilobar pneumonia Patient also positive for RSV BNP 142 Procalcitonin 0.29 COVID-19 PCR, influenza A/B negative RSV positive --Pulmonary emphysema Increased to be used on a daily basis Recommend outpatient PFT Incruse inhaler started this admission --Current smoker Advised to quit --Pulmonary hypertension Likely type III Treatment of pulmonary emphysema as above Plan: Complete the course of antibiotics Continue with flutter valve, Mucinex and hypertonic saline even on discharge Incruse inhaler to be used on a daily basis on discharge as well Patient will need repeat CT chest done in 4 to 6 weeks Please note the above document was generated using voice recognition software. It may contain grammatical, syntax or spelling errors.Any formal questions or concerns about the content, text or information contained within the body of this dictation should be directly addressed to the provider for clarification. Admission and Anticipated Discharge Date Admission Date: September 18, 2022 Subjective Patient seen and examined at bedside. No acute distress, no adverse events overnight. Overall she is feeling better. Shortness of breath is improved. Saturating 97% on 2 L I went down to 1 L. No headache, no nausea, no vomiting Bringing up clear to light green phlegm. No nausea vomiting Fair appetite Review of Systems Review of Systems: All systems reviewed & are unremarkable except as noted in Subjective Physical Exam Physical Exam: Constitutional: No acute distress HEENT: EOMI, PERRLA Respiratory system: Decreased air entry bilaterally, no wheeze, no rhonchi, positive crackles bilaterally, more on the right side CVS: S1-S2 positive, no murmurs or gallops Abdomen: Soft, nontender, nondistended, positive bowel sounds x4, obese Extremities: +2 pulses bilaterally radialis/ dorsalis pedis, no cyanosis, no edema Neuro: Awake alert oriented x3 Psych: Normal mood and affect G/U: No [place] Skin: no rashes, warm and dry Lymphatic: no cervical or axillary lymphadenopathy Results & Data Results & Data ([facility]) Vital Signs (Past 12 Hours) Vital Signs Temp Pulse Pulse Resp BP Pulse Ox Pulse Ox 09/26/22 07:52 85 18 95 09/26/22 03:23 36.4 C L 62 18 121/76 93 09/25/22 22:01 64 09/25/22 21:00 94 09/25/22 22:28 36.7 C 64 18 107/69 95 O2 Del Method O2 Del Method O2 Flow Rate O2 Flow Rate 09/26/22 07:52 Nasal Cannula 2 09/26/22 03:23 Nasal Cannula 2 09/25/22 22:01 09/25/22 21:00 Nasal Cannula 2 09/25/22 22:28 Nasal Cannula 2 Laboratory Results 09/26/22 05:41 09/26/22 05:41 PG Care Time/CCT Total # of Minutes Spent Total Time Spent with Patient: Total time spent is greater than 50% in coordination of care (as documented) at patient's floor/unit and/or counseling patient: Coding Level of Care Code 40794 Subseq Hosp Care Lvl 2 Diagnoses Acute hypoxemic respiratory failure J96.01 Respiratory syncytial virus (RSV) B33.8 Multifocal pneumonia J18.9 Current smoker F17.200 Chronic obstructive bronchitis with pulmonary emphysema J44.9 Pulmonary hypertension I27.20
[2022-09-26] MEDS ORDERED: predniSONE 20 MG TAB PO SCH (09:00)
--- NOTE | 2022-09-26 11:58 | Hospitalist Progress Note ---
Date of Service September 26, 2022 Assessment & Plan (1) Acute hypoxemic respiratory failure: Plan: 66-year-old female with history of smoking, no formal diagnosis of COPD, hypertension, prediabetes, mood disorder, presenting with Several day history of cough, shortness of breath. ACUTE HYPOXIC RESPIRATORY FAILURE SECONDARY TO BILATERAL LOWER LOBE PNEUMONIA RSV INFECTION Presented with cough and shortness of breath. Current everyday smoker Afebrile since admission Leukocytosis present Chest x-ray on admission and on 09/21/2022 show bilateral hazy airspace opacities representing pneumonia. CT chest done on 09/22 shows multifocal airspace opacities with tree-in-bud nodular opacity consistent with atypical pneumonia. Echo shows EF of 60 to 65%. Mild pulmonary hypertension with estimated PASP of 40 Plan; -Continue duo nebs every 6 hours. Continue on doxycycline and ceftriaxone; to complete 7-day course. -On tapering dose of steroids; will finish on 09/28. -On umeclidinium as per pulmonology Continue airway clearance with flutter valve, hypertonic saline nebs Chronic Back Pain --Pain much better --Scheduled Tylenol -- PRN Oxy warm compress Lidoderm patch Severe sepsis SIRS plus hypoxemia secondary to above -- BP stable lactic acid normal Hypertension-continue lisinopril. anxiety/mood disorder, at baseline-continue on Cymbalta, bupropion prediabetes as per records, recent outpatient hemoglobin A1c of 5.8 last September 2021 -- BSG 136-149 Monitor ongoing tobacco abuse DVT prophylaxis. Lovenox subcu Full code Disposition-patient lives at home by herself. Her goal is eventually to go back home. PT evaluation done; recommend home after improvement in respiratory symptoms. Two-step oxygen evaluation done; patient needs to liter at rest and exertion. Prescription provided. Patient is medically stable for discharge. Awaiting transportation. Admission and Anticipated Discharge Date Admission Date: September 18, 2022 Subjective Patient seen and examined at bedside. She reports improvement in her shortness of breath; she is able to bring out phlegm. At 2 L of oxygen by nasal cannula. Review of Systems Review of Systems: All systems reviewed & are unremarkable except as noted in Subjective Physical Exam Physical Exam: General- oriented x 3, not in distress, speaks in sentences with no effort or accessory muscle use Eyes- anicteric Neck- no JVD Lungs-b/l clear breath sounds Heart- normal rate, regular rhythm; no murmurs Abdomen- normal bowel sounds, nondistended, soft, nontender Extremities- no pretibial edema, no calf tenderness Neuro- alert, oriented x 3; no gross focal neurologic deficits Skin- warm & dry Results & Data Results & Data ([facility]) Vital Signs (Past 12 Hours) Vital Signs Temp Pulse Resp BP Pulse Ox O2 Del Method O2 Flow Rate 09/26/22 11:48 Nasal Cannula 2 09/26/22 11:26 88 18 92 Nasal Cannula 1 09/26/22 08:32 36.5 C 69 20 115/78 95 Nasal Cannula 2 09/26/22 07:52 85 18 95 Nasal Cannula 2 09/26/22 03:23 36.4 C L 62 18 121/76 93 Nasal Cannula 2 Laboratory Results Laboratory Results WBC 15.19 K/ul (4.8-10.8) H 09/26/22 05:41 RBC 4.22 M/uL (3.93-5.22) 09/26/22 05:41 Hgb 12.2 g/dl (12.0-16.0) 09/26/22 05:41 Hct 36.5 % (34.1-44.9) 09/26/22 05:41 MCV 86.5 fL (80.0-100.0) 09/26/22 05:41 MCH 28.9 pg (25.0-34.0) 09/26/22 05:41 MCHC 33.4 g/dL (32.0-36.0) 09/26/22 05:41 RDW Std Deviation 45.1 fL (36.4-46.3) 09/26/22 05:41 RDW Coeff of Jimi 14.3 % (11.5-14.5) 09/26/22 05:41 Plt Count 339 K/uL (130-400) 09/26/22 05:41 MPV 8.7 fL (9.4-12.3) L 09/26/22 05:41 Immature Gran % (Auto) 3.1 % 09/26/22 05:41 Neut % (Auto) 59.0 % 09/26/22 05:41 Lymph % (Auto) 29.6 % 09/26/22 05:41 [place] % (Auto) 6.6 % 09/26/22 05:41 Eos % (Auto) 1.5 % 09/26/22 05:41 Baso % (Auto) 0.2 % 09/26/22 05:41 Neut # (Auto) 8.96 K/uL (1.4-6.5) H 09/26/22 05:41 Lymph # (Auto) 4.49 K/uL (1.2-3.4) H 09/26/22 05:41 [place] # (Auto) 1.01 K/uL (0.24-0.82) H 09/26/22 05:41 Eos # (Auto) 0.23 K/uL (0-0.50) 09/26/22 05:41 Baso # (Auto) 0.03 K/uL (0-0.2) 09/26/22 05:41 Immature Gran # (Auto) 0.47 K/uL (0.00-0.02) H 09/26/22 05:41 ABG pH 7.43 (7.35-7.45) 09/18/22 21:42 ABG pCO2 50 mmHg (35-46) H 09/18/22 21:42 ABG pO2 69 mmHg (80-95) L 09/18/22 21:42 ABG HCO3 33 mmol/L (19-24) H 09/18/22 21:42 ABG O2 Saturation 95.9 % (90-95) H 09/18/22 21:42 ABG Base Excess 7.5 mEq/L (-9-1.8) H 09/18/22 21:42 Ho Test Pos (Pos) 09/18/22 21:42 Oxygen Given 4L 09/18/22 21:42 Sodium 137 mmol/L (136-145) 09/26/22 05:41 Potassium 4.2 mmol/L (3.5-5.1) 09/26/22 05:41 Chloride 98 mmol/L (98-107) 09/26/22 05:41 Carbon Dioxide 35 mmol/L (21-32) H 09/26/22 05:41 Anion Gap 4 (3-11) 09/26/22 05:41 BUN 18 mg/dl (6-23) 09/26/22 05:41 Creatinine 0.57 mg/dl (0.6-1.2) L 09/26/22 05:41 Est Cr Clr Drug Dosing 101.3 ml/min 09/26/22 05:41 Est GFR ( Amer) 111.2 ml/min 09/26/22 05:41 Est GFR (Non-Af Amer) 95.9 ml/min 09/26/22 05:41 BUN/Creatinine Ratio 31.6 (10-20) H 09/26/22 05:41 Glucose 83 mg/dl (70-99(Fasting)) 09/26/22 05:41 Estimat Average Glucose 114 mg/dl 09/18/22 16:55 Hemoglobin A1c 5.6 % (4.5-5.6) 09/18/22 16:55 Lactate 0.7 mmol/L (0.4-2.0) 09/18/22 17:58 Calcium 8.9 mg/dl (8.5-10.1) 09/26/22 05:41 Magnesium 1.5 mg/dl (1.7-2.4) L 09/24/22 09:18 Total Bilirubin 0.2 mg/dl (0.2-1.0) 09/25/22 06:24 Direct Bilirubin 0.2 mg/dl (0-0.2) 09/18/22 16:55 AST 10 U/L (13-39) L 09/25/22 06:24 ALT 22 U/L (7-52) 09/25/22 06:24 Alkaline Phosphatase 63 U/L (34-104) 09/25/22 06:24 Troponin I High Sens 13.4 pg/ml (0-14) 09/18/22 16:55 B-Natriuretic Peptide 142 pg/ml (0-100) H 09/18/22 17:45 Total Protein 6.3 gm/dl (6.0-8.3) 09/25/22 06:24 Albumin 3.1 gm/dl (3.4-5.0) L 09/25/22 06:24 Globulin 3.2 gm/dl (2.5-4.0) 09/25/22 06:24 Albumin/Globulin Ratio 1.0 (0.9-2) 09/25/22 06:24 Procalcitonin 0.29 ng/ml (0-0.5) 09/18/22 16:55 Urine Color Dark Yellow 09/18/22 19:25 Urine Appearance Turbid (Clear) A 09/18/22 19: Urine pH 6.0 (4.5-7.5) 09/18/22 19: Ur Specific [place] > 1.045 (1.000-1.030) H 09/18/22 19:25 Urine Protein 3+ (Negative) H 09/18/22 19: Urine Glucose (UA) Trace (Negative) H 09/18/22: Urine Ketones Trace (Negative) H 09/18/22: Urine Blood 2+ (Negative) H 09/18/22 19: Urine Nitrite Positive (Negative) A 09/18/22: Urine Bilirubin 1+ (Negative) H 09/18/22: Urine Urobilinogen Negative (Negative) 09/18/22: Ur Leukocyte Esterase 1+ (Negative) H 09/18/22: Urine WBC (Auto) >30 /hpf (0-5) H 09/18/22: Urine RBC (Auto) 10-30 /hpf (0-4) H 09/18/22: U Hyaline Cast (Auto) 5-10 /lpf (0-5) H 09/18/22: U Epithel Cells (Auto) >30 /lpf (0-5) H 09/18/22 19: Urine Bacteria (Auto) Negative (Negative) 09/18/22 19: Urine Crystals Not Reportable 09/18/22 19: Other Crystals Talc (None Prsent) 09/18/22 19: Urine Mucus Present (None Prsent) A 09/18/22 19: SARS-CoV-2 (PCR) NEGATIVE (Negative) 09/18/22 17: Influenza Type A (PCR) Negative (Neg) 09/18/22 17: Influenza Type B (PCR) Negative (Neg) 09/18/22 17:33 RSV (RT-PCR) Positive (Neg) A* 09/18/22 17:33 Impressions Chest X-Ray 09/21/22 10:33 XR chest 1V portable HISTORY: Pneumonia. Follow-up. COMPARISON: Chest 09/18/2022. FINDINGS: No pneumothorax. There are low lung volumes. Patchy bibasilar densities most pronounced on the right. This is similar to the prior study. The heart is normal in size. Cervical and thoracic spinal fusion hardware again noted. No significant pleural effusions. IMPRESSION: No change in the hazy bibasilar airspace opacities likely representing a pneumonia. This could be due to aspiration ACT 112: Negative or not required by law. Electronically signed by: Jef Jade M.D. 09/21/2022 11:[address] 09/22/22 11:53 CT chest diagnostic wo con CT DOSE: 550.25 mGy.cm HISTORY: Shortness of breath. Follow-up pneumonia. r/o infiltrate/ Edema TECHNIQUE: Multiaxial CT images of the chest were performed without contrast. A dose lowering technique was utilized adhering to the principles of ALARA. COMPARISON: Chest x-ray 09/21/2022. Chest CTA 01/29/2019. FINDINGS: The central airways are patent. No pneumothorax. No pleural effusions. Mild emphysema again noted. There is a 6 cm groundglass airspace opacity within the right lung apex demonstrating interlobular septal thickening. Multiple additional scattered tree-in-bud nodular opacities seen throughout the lungs. There are also patchy consolidative airspace opacities within the right lower lobe. These findings favor an atypical pneumonia. Cervical spinal fusion hardware and thoracic spinal fusion hardware is noted. Prior vertebroplasty within the thoracolumbar spine. Degenerative changes within the shoulders. Limited views of the upper abdomen demonstrate a normal liver, spleen, and adrenal glands. There is a cortical calcification within the left kidney. Normal caliber esophagus. Normal thyroid gland. The heart is normal in size. No pericardial effusion. No mediastinal or hilar lymphadenopathy. The ascending thoracic aorta measures up to 4 cm in diameter. Severe calcified plaque within the coronary arteries. There are few small peripheral densities within the left upper lobe. IMPRESSION: 1. Multifocal airspace opacities with tree-in-bud nodular opacities most pronounced within the right lung. This is consistent with an atypical pneumonia and could be due to a viral process. 2. The right upper lobe groundglass airspace opacity with interlobular septal thickening also favors an atypical pneumonitis. Asymmetric pulmonary edema or less likely pulmonary hemorrhage is also considered in the differential diagnosis. [address] follow-up recommended to ensure resolution 3. Mild aneurysmal dilatation of the ascending thoracic aorta measuring 4 cm in diameter. ACT 112: Negative or not required by law. Electronically signed by: Jef Jade M.D. 09/22/2022 3:27 PM
[2022-09-26] MEDS ORDERED: ALPRAZolam 0.5 MG TABLET PO ONE (15:44)
--- NOTE | 2022-09-26 16:00 | Discharge Summary ---
Date of Service September 26, 2022 Admission HPI Per Admitting Provider History obtained from patient and records. Medical history significant hypertension, chronic back pain status post surgery, anxiety/mood disorder, prediabetes as per records, ongoing tobacco abuse. Last confinement January 2022 for ambulatory dysfunction and severe back and neck pain. Patient not feeling well the last 3 days. Sick granddaughter. Patient completed COVID-19 vaccination. Poor appetite. Cough symptoms productive of white sputum. Worsening cough, shortness of breath after emesis today. Chest pain from coughing O2 sats noted to be 70s upon arrival of EMS at patient's home. Cefepime administered at the ER for possible sepsis. Medical Historyas above Surgical History : Neck surgery, D&C, uterine biopsy, thoracic kyphoplasty, appendectomy, knee surgery, hernia repair, TAHBSO Family History : COPD, dementia, cervical cancer Personal/Social history : Half pack daily, no EtOH intake, disabled Admission Exam Per Admitting Provider GENERAL: uncomfortable, obese,respiratory distress SKIN: Normal color, warm HEENT: Bespectacled, [place] palpebral conjunctivae, no ptosis, dry buccal mucosa, nasal cannula in place NECK : Short neck, supple CHEST : Decreased breath sounds, diffuse expiratory wheezes, no tenderness HEART : RRR, no obvious murmurs ABDOMEN: distention, nontender EXTREMITIES : Minimal LE swelling, no LE tenderness NEUROLOGIC : Coherent, no facial asymmetry, no other gross focality Principal Diagnosis ACUTE HYPOXIC RESPIRATORY FAILURE SECONDARY TO BILATERAL LOWER LOBE PNEUMONIA RSV INFECTION Discharge Exam General- oriented x 3, not in distress, speaks in sentences with no effort or accessory muscle use Eyes- anicteric Neck- no JVD Lungs-crackles at bilateral bases. Heart- normal rate, regular rhythm; no murmurs Abdomen- normal bowel sounds, nondistended, soft, nontender Extremities- no pretibial edema, no calf tenderness Neuro- alert, oriented x 3; no gross focal neurologic deficits Skin- warm & dry Discharge Data Allergies Allergy/AdvReac Type Severity Reaction Status Date / Time Iodinated Contrast Media Allergy Intermediate facial Verified 09/18/22 20:05 swelling [facility] 08/04/19 Penicillins Allergy Unknown SWELLING Verified 09/18/22 20:05 EVERYWHERE,ITCHY Consultations 09/18/22 19:20 ED Decision to Admit Stat 09/21/22 10:34 Consult Pulmonology Routine Ordered Studies 09/22/22 11:53 CT chest diagnostic wo con Urgent Hospital Course (1) Acute hypoxemic respiratory failure: 66-year-old female with history of smoking, no formal diagnosis of COPD, hypertension, prediabetes, mood disorder, presenting with Several day history of cough, shortness of breath. On presentation to the ED, patient was found to have low saturation in room air; was placed on 2 L of oxygen. Chest x-ray was done which showed bilateral hazy air space opacity representing pneumonia. Patient was admitted to telemetry floor. She was started on [id number] duo nebs, airway clearance therapy with hypertonic saline and antibiotics. She was also started on IV steroids for possible COPD exacerbation. She also tested positive for RSV infection. Pulmonary was consulted. Patient had CT chest done on 09/22 which showed multifocal airspace opacities with tree-in-bud nodular opacity consistent with atypical pneumonia. Patient was started on umeclidinium inhaler as part of her COPD treatment. Echocardiogram was done which showed EF of 60 to 65% with mild pulmonary hypertension with estimated PASP of 40 mmHg. Patient continued to show signs of improvement during the hospitalization. IV steroid was changed to oral and were gradually tapered down. She finished 7-day course of ceftriaxone and doxycycline. Two-step oxygen evaluation was done; patient needed 2 L at rest and at exertion. Pulmonology recommended repeat CT scan in 4 to 6 weeks as outpatient. Prescription for albuterol inhaler, umeclidinium inhaler and prednisone was sent to her pharmacy. Patient will follow-up with her primary care doctor in 5 days after discharge. No other medications were changed during the hospitalization. Total Time Total Time Spent Total Time Spent (In Minutes): 35 Total Time Includes: Examination of the Patient, Discharge Planning, Medication Reconciliation, Communication With Other Providers and Other Discharge Plan Discharge Items Patient Disposition: Home - Self-Care Reason For Visit: RESP FAILURE Discharge Diagnosis: ACUTE HYPOXIC RESPIRATORY FAILURE SECONDARY TO BILATERAL LOWER LOBE PNEUMONIA RSV INFECTION Activity: Resume your previous activity Non-emergency contact: Primary Care Provider Call non-emergency contact if: you have any medication questions and your symptoms worsen Follow-up/Referrals: Zion Guzman MD [Primary Care Provider] - (Date & Time 10/01/2022 3:00 PM Provider Anastacio Randhawa DO [facility] ) Diet: Regular Addtl Attending Provider Instructions: You are admitted to the hospital with bilateral lower lobe pneumonia and RSV infection. You completed antibiotic course during the hospitalization. You were evaluated by pulmonology during the hospitalization. 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 You have to use the Incruse inhaler daily. You were also prescribed albuterol inhaler to be used as needed for increased shortness of breath. Also picking table worker prednisone 20 mg from your pharmacy. Please take 20 mg once daily for 2 more days. You will need a repeat CT scan chest done in 4 to 6 weeks as per the pulmonology doctor. Please discuss this with your primary care doctor. You have appointment set up at at 3 PM with her primary care doctor. Pending Studies at Discharge: No [facility]Alone [facility]: [facility] Sm[facility] Cess[facility] Medications and DC Order Prescriptions: New Incruse Ellipta 62.5 mcg/actuation Blister With Device 1 inh inhalation DAILY Qty: 30 0RF albuterol sulfate 90 mcg/actuation HFA aerosol inhaler 1 inh inhalation Q6H PRN (Reason: shortness of breath or wheezing) Qty: 8.5 0RF prednisone 20 mg Tablet 20 mg PO DAILY Qty: 2 0RF Continued baclofen 10 mg Tablet 10 mg PO TID PRN (Reason: Muscle Spasm/Pain) atorvastatin 20 mg tablet 20 mg PO QAM lisinopril 40 mg tablet 40 mg PO QAM acetaminophen [Tylenol Extra Strength] 500 mg Tablet 500 mg PO Q6 PRN (Reason: Pain) oxycodone-acetaminophen 10-325 mg tablet 1 tab PO Q8H PRN (Reason: Pain, Severe) polyethylene glycol 3350 [Miralax] 17 gram powder in packet 17 g PO QAM duloxetine 30 mg Capsule,Delayed Release(Dr/Ec) 30 mg PO QAM Qty: 5 0RF duloxetine 60 mg Capsule,Delayed Release(Dr/Ec) 60 mg PO QAM Qty: 20 0RF bupropion HCl 150 mg tablet extended release 24 hr 150 mg PO QAM hydroxyzine HCl 50 mg tablet 50 mg PO QID PRN (Reason: Anxiety) Rx Instructions: morning,noon,evening and bedtime trazodone 150 mg tablet 150 mg PO HS pregabalin 100 mg capsule 100 mg PO TID Rx Instructions: take in morning,noon and bedtime cholecalciferol (vitamin D3) [Vitamin D3] 50 mcg (2,000 unit) Tablet 50 mcg PO DAILY ondansetron 4 mg tablet,disintegrating 4 mg PO Q8 PRN (Reason: Nausea) Rx Instructions: allow to dissolve on tongue Discharge Orders: Discharge Order (Routine); Ordered 09/26/22 Ordered By: Abraham Abreu Admission Data Admit Date/Time: 09/18/22 19:46 Attending Provider: Abraham Abreu Admit Provider: Tima Balbuena Primary Care Provider: Zion Guzman Other Providers: Tima Balbuena ; Freddy Amaya
[2022-09-26 16:22] VITALS: BP 161/72; PULSE 87; TEMP 98.8; O2SAT 95
== END 2022-09-26 17:45 | disposition home or self-care (01) | DRG 871 ==
LOC: ED 16:29 → SUATTDRO 19:46 → 2N 19:46

== ENCOUNTER 2023-12-27 09:29 | Inpatient (IN) ==
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
[2023-12-27] MEDS: LORazepam 1 MG/1 ML SYR ED Inj Use IV STA ×2 (10:42→15:25)
[2023-12-27] MEDS: LIDOCAINE 5% 1 PATCH TD STA (10:42)
[2023-12-27 11:05] LABS: Basophils # (auto) 0.03 K/uL (0.00-0.20); Basophils % (auto) 0.4 %; Eosinophils # (auto) 0.31 K/uL (0.00-0.50); Eosinophils % (auto) 4.3 %; Hematocrit (blood only) 42.3 % (37.0-47.0); Hemoglobin 13.8 g/dl (12.0-16.0); Immature Granulocytes # (auto) 0.03 K/uL (0.01-0.20); Immature Granulocytes % (auto) 0.4 %; Lymphocytes # (auto) 1.35 K/uL (1.20-3.40); Lymphocytes % (auto) 18.6 %; Mean Corpuscular Hemoglobin 28.4 pg (25.0-34.0); Mean Corpuscular Hgb Conc 32.6 g/dL (32.0-36.0); Mean Platelet Volume 9.3 fL (9.4-12.4); Monocytes # (auto) 0.48 K/uL (0.11-0.59); Monocytes % (auto) 6.6 %; Neutrophils # (auto) 5.05 K/uL (1.40-6.50); Neutrophils % (auto) 69.7 %; Platelet Count 275 K/uL (130-400); RDW Coefficient of Variation 14.6 % (11.5-14.5); RDW Standard Deviation 47.2 fL (36.4-46.3); Red Blood Count 4.86 M/uL (4.20-5.40); White Blood Count 7.25 K/ul (4.8-10.8)
[2023-12-27 11:29] LABS: Albumin Globulin Ratio 1.4 (0.9-2); Albumin Level 4.3 gm/dl (3.4-5.0); BUN Creatinine Ratio 13.8 (10-20); Bilirubin,Total 0.4 mg/dl (0.2-1.0); Calcium 9.4 mg/dl (8.6-10.3); Creatinine Clr Calc Pharmacy 91.9 ml/min; Est GFR (Non-African American) 90.6 ml/min; Total Protein 7.3 gm/dl (6.0-8.3)
--- NOTE | 2023-12-27 11:43 | CT Scan Report ---
CT OF THE CERVICAL SPINE WITHOUT CONTRAST CLINICAL HISTORY: neck pain s/p injury COMPARISON STUDY: Cervical spine CT August 15, 2023. Cervical spine MRI February 10, 2022. TECHNIQUE: Helical axial images of the cervical spine were obtained without IV contrast. Sagittal a nd coronal reconstructions were viewed. Automated exposure control was utilized for the study. A do se lowering technique was utilized adhering to the principles of ALARA. FINDINGS: Stable postoperative findings within the cervical spine are noted, including C3-C7 anterior discectomy and fusion. Posterior C3-C6 fusion with multilevel decompression is noted. There is no ac david cervical spine fracture. The appearance of the cervical spine is unchanged. No osseous lesions ar e identified. The central canal and neural foramen are suboptimally assessed given CT technique. Ther e is no prevertebral edema. The hardware is intact. IMPRESSION: No acute cervical spine fracture or subluxation. Stable postoperative findings within the cervical spine. ACT 112: Negative or not required by law. Electronically signed by: [place] M.D. 12/27/2023 11:41 AM
[2023-12-27] MEDS: oxyCODONE HCL IR 5 MG TAB (IMMEDIATE RELEASE) PO STA (12:03)
--- NOTE | 2023-12-27 12:09 | CT Scan Report ---
CT SCAN OF THE THORACIC SPINE WITHOUT IV CONTRAST CLINICAL HISTORY: Thoracic back pain. COMPARISON STUDY: CT of the thoracic spine dated 06/03/2020. Chest CT dated 08/15/2023. TECHNIQUE: CT scan of the thoracic spine is performed from the lower cervical spine to the upper lumb ar spine. Images are reviewed in the axial, sagittal, and coronal planes. IV contrast was not adminis tered for this examination. A dose lowering technique was utilized adhering to the principles of ALIS [place]. FINDINGS: The skeletal structures are osteopenic. There is no evidence of acute fracture or malalignm ent involving the thoracic spine. There are chronic compression deformities of T12 and L1 status post vertebroplasty. A chronic compression deformity of L2 is unchanged. Fusion hardware is seen in the l ower cervical spine. Postlaminectomy change is noted in the upper lumbar spine. There is postoperativ e change from laminectomy and posterior fusion seen at T7-T8 with interpedicular screws in place. Mirtha tebral body height is otherwise maintained throughout the thoracic spine. Anterior and lateral margin al osteophytes are seen throughout. There is mild hyperkyphosis. Mild multilevel disc space narrowing is seen throughout the thoracic region. A large posterior disc osteophyte complex at T7-T8 is unchan ged, as are retropulsed fragments at L1. The transverse and spinous processes appear intact. No lytic or blastic lesion is seen. There is fatty atrophy of the paraspinous musculature. The paraspinous so ft tissues are otherwise normal as imaged. There are chronic/healed left posterior rib fractures. The imaged lung parenchyma appears clear. The heart is enlarged and the coronary arteries are densely ca lcified. IMPRESSION: 1. No acute bony abnormality is seen involving the thoracic spine. 2. Osteopenia with chronic and postsurgical changes as above. ACT 112: Negative or not required by law. Dictated: 12/27/2023 11:30 AM Transcribed: 12/27/2023 12:00 PM Chau [id number] [email or web address] Electronically signed by: Nikolas Ricks M.D. 12/27/2023 12:08 PM
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
[2023-12-27] MEDS: hydroCHLOROthiazide 25 MG TAB PO STA (14:31)
[2023-12-27] MEDS: amLODIPine BESYLATE 5 MG TAB PO ONE (14:33)
[2023-12-27] MEDS: hydrOXYzine HCl 25 MG TAB PO STA (14:33)
[2023-12-27] MEDS: DULoxetine HCL 60 MG CAP PO STA (14:55)
[2023-12-27] MEDS: ACETAMINOPHEN 500 MG TAB PO STA (14:55)
[2023-12-27] MEDS: IBUPROFEN 600 MG TAB PO STA (15:16)
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
--- OUTSIDE RECORDS SUMMARY | 2023-12-27 15:19 | External Medical Summary ---
Author Name Unknown Address Unknown Organization [facility] [place] [address] [place] [address] Laboratory Report Ordering Provider Test Date Status CHETNA ESTRELLA 11/21/2023 10:11:00 Final Observation Date Value Abnormality Reference (Units ) Status BUN 11/21/2023 10:11:00 16 6-20 (mg/dL) Final Creatinine 11/21/2023 10:11:00 0.7 0.5-1.0 (mg/dL) Final Glomerular filtration rate/1.73 sq M.predicted [Volume Rate/Area] in Serum, Plasma or Blood by Creatinine-based formula (CKD-EPI) 11/21/2023 10:11:00 >90 >=60 (mL/min) Final eGFR is calculated based on the CKD-EPI 2020 equation SODIUM 11/21/2023 10:11:00 139 135-146 (m mol/L) Final Potassium 11/21/2023 10:11:00 4.9 3.5-5.1 (m mol/L) Final Cl 11/21/2023 10:11:00 100 98-107 (mm ol/L) Final CO2 11/21/2023 10:11:00 29 22-32 (mmo l/L) Final Anion gap 11/21/2023 10:11:00 10 7-15 (mmol /L) Final Glucose 11/21/2023 10:11:00 118 70-120 (mg /dL) Final Calcium 11/21/2023 10:11:00 9.2 8.4-10.2 ( mg/dL) Final Performing Location [facility] [place] [facility] [place] [address]
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
--- NOTE | 2023-12-27 15:21 | XRay Report ---
XR shoulder LT min 2V routine CLINICAL HISTORY: Left shoulder pain. COMPARISON: Left shoulder radiographs July 03, 2023 FINDINGS: No acute fracture within the left shoulder is noted. Alignment is anatomic. There is sever e joint space narrowing of the glenohumeral joint with extensive osteophytosis. There is moderate AC joint osteoarthritis. Postoperative findings within the spine are partially imaged. IMPRESSION: 1. No acute fracture within the left shoulder. 2. Severe left glenohumeral joint osteoarthritis. ACT 112: Negative or not required by law. Electronically signed by: [place] M.D. 12/27/2023 3:20 PM
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
--- OUTSIDE RECORDS SUMMARY | 2023-12-27 15:21 | External Medical Summary ---
Author Name Unknown Address Unknown Organization [id number] [place] [address] Laboratory Report Ordering Provider Test Date Status 09/14/2023 12:11:51 Final Observation Date Value Abnormality Reference (Units ) Status BUN 09/14/2023 12:11:51 15 6-20 (mg/dL) Final Creatinine 09/14/2023 12:11:51 0.7 0.5-1.0 (mg/dL) Final Glomerular filtration rate/1.73 sq M.predicted [Volume Rate/Area] in Serum, Plasma or Blood by Creatinine-based formula (CKD-EPI) 09/14/2023 12:11:51 >90 >=60 (mL/min) Final eGFR is calculated based on the CKD-EPI 2020 equation SODIUM 09/14/2023 12:11:51 135 135-146 (m mol/L) Final Potassium 09/14/2023 12:11:51 4.4 3.5-5.1 (m mol/L) Final Cl 09/14/2023 12:11:51 97 Below low normal 98- 107 (mmol/L) Final CO2 09/14/2023 12:11:51 29 22-32 (mmo l/L) Final Anion gap 09/14/2023 12:11:51 9 7-15 (mmol /L) Final Glucose 09/14/2023 12:11:51 93 70-120 (mg /dL) Final Calcium 09/14/2023 12:11:51 9.0 8.4-10.2 ( mg/dL) Final Performing Location [facility] [place] [address]
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
--- OUTSIDE RECORDS SUMMARY | 2023-12-27 15:21 | External Medical Summary ---
Author Name Unknown Address Unknown Organization K09:[facility] [place] [address] Laboratory Report Ordering Provider Test Date Status 09/14/2023 12:11:51 Final Observation Date Value Abnormality Reference (Units ) Status WBC, Total 09/14/2023 12:11:51 8.54 4.00-10.8 0 (K/uL) Final RBC 09/14/2023 12:11:51 4.29 3.85-5.15 (M/uL) Final Hemoglobin 09/14/2023 12:11:51 11.7 Below low normal 12 .0-15.3 (g/dL) Final HCT 09/14/2023 12:11:51 37.4 36.0-45.2 (%) Final MCV 09/14/2023 12:11:51 87.2 81.5-97.5 (fL) Final MCH 09/14/2023 12:11:51 27.3 27.0-34.0 (pg) Final MCHC 09/14/2023 12:11:51 31.3 32.0-36.0 (g/dL) Final RDW 09/14/2023 12:11:51 14.7 11.5-15.5 (%) Final Platelets 09/14/2023 12:11:51 277 140-400 (K /uL) Final MPV 09/14/2023 12:11:51 8.7 6.6-11.1 ( fL) Final Performing Location [facility] [place] [address]
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
--- OUTSIDE RECORDS SUMMARY | 2023-12-27 15:21 | External Medical Summary | Summary of Care ---
Author Name Unknown Organization [facility] Address [address] [place] [address] Phone [phone] Care Team Providers Care Load Out Person Name Role Phone Thomas LEIVA MD, Inocencio Mireles Primary Care Provider Reason for Visit * Reason Onset Date Comments Medication Refill 09/20/2023 Encounter Details Date Type Department Care Team (Late st Contact Info) Description 09/20/2023 Refill Access Center, [place] [address] [facility] *DO NOT REMOVE THIS DEPARTMENT* [place] [address] Services, Scheduling [address] [place] [address] Allergies Active Allergy Reactions Criticality Noted Date Comments Other Allergy (See Comments) [address] Contrast Penicillins Anaphylaxis High 09/10/1999 documented as of this encounter (statuses as of 09/21/2023) Medications Medication Sig Dispensed Refills Start Date [...] (Wellbutrin XL) 1 by mouth every am 30 Tablet 0 09/16/2023 Active busPIRone HCl 5 MG Oral Tablet (Buspar) Take 1 tablet by mouth twice a day 60 Tablet 0 09/16/2023 Active DULoxetine HCl 60 MG Oral Capsule Delayed Release Particles (Cymbalta) 2 by mouth every am (120mg) 60 Capsule 2 09/16/2023 Active buPROPion HCl [...] before bedtime. 270 Capsule 1 09/21/2023 Active Pregabalin 100 MG Oral Capsule (Lyrica) [...] as of this encounter (statuses as of 09/21/2023) Active Problems Problem Noted Date Diagnosed Date [...] rupture 03/04 Atherosclerosis of coronary artery of [place] heart without angina pectoris 03/22/2023 History of [...] as of this encounter (statuses as of 09/21/2023) Resolved Problems Problem Noted Date Diagnosed Date [...] as of this encounter (statuses as of 09/21/2023) Immunizations Name Administration Dates Next Due COVID-19 [...] Encounter - Inocencio Gunter III, MD - 09/21/2023 7:42 AM ESTSigned Prescriptions: Disp Refills Pregabalin 100 MG Oral Capsule (Lyrica) 270 Ca*1 Sig: Take 1 Capsule by mouth in the morning and 1 Capsule at noon and 1 Capsule before bedtime.Authorizing Provider: INOCENCIO GUNTER III * Telephone Encounter - Amber Valdes LPN - 09/20/2023 4:43 PM EST Pending Prescriptions: Disp Refills Pregabalin 100 MG Oral Capsule (Lyrica) 270 Ca*1 Sig: Take 1 Capsule by mouth in the morning and 1 Capsule at noon and 1 Capsule before bedtime. Last Visit: Visit date not found (in office), Visit date not found (telemedicine) Next Visit: Visit date not found Last date the medication was ordered: 09/06/2023 Patient Active Problem List Diagnosis Code GENERAL OSTEOARTHROSIS, right knee M15.9 ADJ DISORDER W/DEPRES MOOD F43.21 ADVANCE DIRECTIVE INFORMATION Dyslipidemia, goal LDL below 130 E78.5 MEDICATION USE AGREEMENT [id number] Lumbosacral spondylosis M47.817 Degenerative disc disease, lumbar [...] (HCC) I71.21 Atherosclerosis of coronary artery of [place] heart without angina pectoris I25.10 Grade I diastolic dysfunction I51.89 Hypertensive left ventricular hypertrophy, without heart failure I11.9 Hypertensive kidney disease with stage 3b chronic kidney disease (HCC) I12.9, N18.32 Chronic gastritis without bleeding K29.50 Hyperkalemia E87.5 Pulmonary hypertension (HCC) I27.20 Arteriosclerosis of abdominal aorta (HCC) I70.0 COPD, mild (HCC) J44.9 Food insecurity Z59.41 Labs: Lab Results Component Value Date/Time CREATININE - [facility] 0.7 09/14/2023 12:11 PM CREATININE - [facility] 0.5 12/07/2017 12:58 PM CREATININE ARLET 104 12/12/2018 02:39 PM CREATININE, RANDOM URINE - [facility] 41 04/14/2023 01:44 PM CREATININE, RANDOM URINE - [facility] 61 12/07/2017 01:07 PM CREATININE-OUTSIDE LAB 0.83 06/03/2020 12:00 AM Lab Results Component Value Date/Time POTASSIUM - [facility] 4.4 09/14/2023 12:11 PM POTASSIUM - [facility] 4.4 12/07/2017 12:58 PM POTASSIUM-OUTSIDE LAB 4.4 06/03/2020 12:00 AM Lab Results Component Value Date/Time TSH - [facility] 0.55 04/08/2021 01:18 PM TSH - [facility] 1.07 12/07/2017 12:58 PM TSH - OUTSIDE LAB 0.6 08/19/2017 12:00 AM Lab Results Component Value Date/Time LDL (CALCULATED)-OUTSIDE LAB 88.0 08/19/2017 12:00 AM LDL CHOLESTEROL (CALCULATED) - [facility] 91 02/07/2023 11:12 AM LDL CHOLESTEROL (CALCULATED) - [facility] 112 09/09/2021 01:06 PM LDL CHOLESTEROL (CALCULATED) - [facility] 137 (H) 12/10/2013 08:29 AM LDL CHOLESTEROL (CALCULATED) - [facility] 154 (H) 05/03/2013 09:59 AM LDL CHOLESTEROL (DIRECT MEASURE) - [facility] NOT APPLICABLE 12/10/2013 08:29 AM LDL CHOLESTEROL (DIRECT MEASURE) - [facility] NOT APPLICABLE 05/03/2013 09:59 AM Lab Results Component Value Date/Time ALT - [facility] 18 02/07/2023 11:12 AM ALT - [facility] 16 12/07/2017 12:58 PM Hemoglobin AIC Results: Lab Results Component Value Date/Time HEMOGLOBIN A1C - [facility] 5.6 02/07/2023 11:12 AM HEMOGLOBIN A1C - [facility] 5.8 (H) 09/09/2021 01:06 PM HEMOGLOBIN A1C - [facility] 5.7 (H) 08/14/2019 03:12 PM HEMOGLOBIN A1C - [facility] 5.3 06/30/2012 08:55 AM HEMOGLOBIN A1C - [facility] 5.6 07/05/2008 07:08 AM * Telephone Encounter - Peyton Wilson OSA - 09/20/2023 9:57 AM EST @MEDREQUEST@ Pt calling on a refill for Pregabalin 100 MG Oral Capsule (Lyrica) . Please uses [facility]. Does pt need a written rx? n/a Pt needs rx for n/a day with n/a refills. Other instructions: n/a documented in this encounter Plan of Treatment Upcoming Encounters Date Type Department Care Team (Late st Contact Info) Description 10/14/2023 3:00 PM EST Office Visit Nephrology, Annia Thacker [address] [facility] [place] [address] Zahira Edward MD [address] [facility] [place] [address] 10/20/2023 8:30 AM EST [facility] Visit [facility] [address] [facility] [place] [address] Jasmine Jones, RN [address] [facility] [address] 05/30/2024 3:30 PM EDT Office Visit [facility] at Home [address] [place], [place] [phone] Amber Goldman PA-C [address] [place] [address] Scheduled Procedures Name Priority Associated [...] Ratio 04/14/2024 04/14/2023 CKD PHOS USE SMARTSET 38909 06/17/202406/03, 06/03/2020, 03/05/2019, Additional history exists COLONOSCOPY-EVERY 5 YRS AGES 18-100 06/26/2024 06/26/2019, 06/26/2019, 09/30/2008 CKD HGB USE SMARTSET 77129 09/14/202409/14, 02/07/2023, 12/16/2021, Additional history exists O2 [...] D LEVEL ONCE IN A LIFETIME-USE SMARTSET# [id number] Completed 02/07/2023, 12/07/2017, 05/03/2013, Additional history exists [...] Relationship Healthcare Agent Relationship Communication Timothy "Garfield" [facility] C are Route Jumper (appointed verbally by patient or by statute hierarchy) Care Teams Load Out Person Relationship Specialty Start Date End Date Thomas III, Inocencio Mireles MD [address] [place], [place] [address] PCP - General 05/17/1996 documented as of this encounter
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
--- OUTSIDE RECORDS SUMMARY | 2023-12-27 15:23 | External Medical Summary | Summary of Care ---
Author Name Unknown Organization [facility] Address [address] [place] [address] Phone [phone] Care Team Providers Care Rail Car Repair Carman Name Role Phone Thomas LEIVA MD, Zion Mireles Primary Care Provider Reason for Visit * Reason Onset Date Comments [facility]: Maintenance 09/05/2023 Encounter Details Date Type Department Care Team (Late st Contact Info) Description 09/05/2023 Telephone [facility], [facility] [address] [facility] [place] [address] [facility], Nurse [facility] [address] [facility] [place] [address] [facility]: Maintenance Allergies Active Allergy [...] rupture 03/04 Atherosclerosis of coronary artery of [place] heart without angina pectoris 03/22/2023 History of [...] encounter Miscellaneous Notes * Telephone Encounter - Ivonne Becerra RN - 09/05/2023 1:21 PM EST Patient calling to check on status of nebulizer and chest xray. She said she did not get a call on either. Will check on both and call back. Call to Alba at [facility]. She cannot find an order for nebulizer. Asked if there is anyway she can get it today. She said they can try. She said to put urgent on cover sheet. Order for Nebulizer faxed to [facility] and marked urgent. Call to [facility] and placed order for chest xray. They will try and complete it today, if not today, tomorrow. ' Call to patient and made her aware that xray will be completed today or tomorrow by [facility] and [facility] will try to get nebulizer to her today. Routed to care team Ivonne Becerra. RN [facility] RN [phone] documented in this encounter Plan of Treatment Upcoming Encounters Date Type Department Care Team (Late st Contact Info) Description 09/09/2023 8:30 AM EST Home Visit [facility] [address] [place] [address] Jasmine Jones RN [address] [place] [address] 09/14/2023 11:00 AM EST Office Visit Family Practice [facility] [place] [address] [place] [address] Blossom Mcfadden PA-C 200 [address]ia [address] [facility] [place] [address] 10/14/2023 3:00 PM EST Office Visit Nephrology, [facility] 200 [facility] [place] [address] Zahira Edward MD 200 [facility] [place] [address] 05/30/2024 3:30 PM EDT Office Visit [facility] at Home [address] [place] [address] Amber Goldman PA-C [address] [place] [address] Scheduled Procedures Name Priority Associated [...] Screening 01/13/2024 01/12/2023 CKD HGB USE SMARTSET 34111 02/08/202402/07, 12/16/2021, 12/16/2021, Additional history exists Albumin/Creatinine Ratio 04/14/2024 04/14/2023 CKD PHOS USE SMARTSET 70783 06/17/202406/03, 06/03/2020, 03/05/2019, Additional history exists COLONOSCOPY-EVERY [...] D LEVEL ONCE IN A LIFETIME-USE SMARTSET# [id number] Completed 02/07/2023, 12/07/2017, 05/03/2013, Additional history exists [...] Communication Timothy "Garfield" [facility] C are Bell Staff (appointed verbally by patient or by statute hierarchy) Care Teams Rail Car Repair Carman Relationship Specialty Start Date End Date Zion Guzman III, MD 200 [place] [address] PCP - General 05/17/1996 documented as of this encounter
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
[2023-12-27] MEDS: PREGABALIN 100 MG CAP PO STA (15:24)
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
[2023-12-27] MEDS: KETOROLAC TROMETHAMINE 15 MG/ML VIAL IV ONE (15:25)
[2023-12-27] MEDS ORDERED: ONDANSETRON INJ 2 MG/ML 2 ML VIAL IV PRN (16:17)
[2023-12-27] MEDS ORDERED: ALBUTEROL 0.083% NEBU SOLN 3 ML VIAL INH PRN (16:17)
[2023-12-27] MEDS ORDERED: ALBUTEROL HFA 8 GM INHALER INH PRN (16:17)
[2023-12-27] MEDS ORDERED: POLYETHYLENE (MIRALAX) 17 GM PACK PO PRN (16:17)
[2023-12-27] MEDS: diazePAM 2 MG TABLET PO STA (16:26)
[2023-12-27] MEDS: ENOXAPARIN INJ 40 MG/0.4 ML SYR SQ SCH (17:40)
[2023-12-27] MEDS: oxyCODONE HCL IR 5 MG TAB (IMMEDIATE RELEASE) PO PRN (17:40)
[2023-12-27] MEDS: PREGABALIN 100 MG CAP PO SCH (19:25)
[2023-12-27] MEDS: KETOCONAZOLE 2% CR 15 GM TUBE EXT SCH (20:52)
[2023-12-27] MEDS: ACETAMINOPHEN 500 MG TAB PO SCH (20:52)
[2023-12-27] MEDS: traZODone HCL 50 MG TAB PO SCH (20:52)
[2023-12-27] MEDS: diazePAM 2 MG TABLET PO SCH (21:24)
[2023-12-27] MEDS ORDERED: KETOROLAC TROMETHAMINE 15 MG/ML VIAL IV PRN (23:00)
[2023-12-28 07:11] LABS: Hematocrit (blood only) 40.3 % (37.0-47.0); Mean Corpuscular Hemoglobin 28.8 pg (25.0-34.0); Mean Corpuscular Hgb Conc 32.3 g/dL (32.0-36.0); Mean Corpuscular Volume 89.2 fL (80.0-100.0); Mean Platelet Volume 9.1 fL (9.4-12.4); Platelet Count 252 K/uL (130-400); RDW Coefficient of Variation 15.3 % (11.5-14.5); RDW Standard Deviation 49.7 fL (36.4-46.3); Red Blood Count 4.52 M/uL (4.20-5.40); White Blood Count 6.34 K/ul (4.8-10.8)
[2023-12-28 07:35] LABS: BUN Creatinine Ratio 19.8 (10-20); Calcium 8.8 mg/dl (8.6-10.3); Creatinine Clr Calc Pharmacy 63.2 ml/min; Est GFR (African American) 74.6 ml/min; Est GFR (Non-African American) 64.4 ml/min; Potassium 3.9 mmol/L (3.5-5.1)
[2023-12-28 07:40] LABS: Estimated Average Glucose 117 mg/dl; Hemoglobin A1C 5.7 % (4.5-5.6)
[2023-12-28] MEDS: DULoxetine HCL 60 MG CAP PO SCH (08:49)
[2023-12-28] MEDS: UMECLIDINIUM/VILANTEROL 62.5/25MCG 7 PUFFS/INHALER INH SCH (08:49)
[2023-12-28] MEDS: ATORVASTATIN 20 MG TAB PO SCH (08:49)
[2023-12-28] MEDS: TORSEMIDE 10 MG TAB PO SCH (08:50)
[2023-12-28] MEDS: amLODIPine BESYLATE 5 MG TAB PO SCH (08:50)
[2023-12-28] MEDS: buPROPion XL 300 MG TABCR PO SCH (08:50)
[2023-12-28] MEDS: hydroCHLOROthiazide 25 MG TAB PO SCH (08:50)
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
[2023-12-28 10:56] LABS: Amphetamines+Metham, Urine Neg (Neg); Barbiturates, Urine Neg (Neg); Benzodiazepine, Urine Pos (Neg); Cocaine, Urine Neg (Neg); MDMA (Ecstacy), Urine Pos (Neg); Marijuana, Urine Pos (Neg); Methadone, Urine Neg (Neg); Opiate, Urine Neg (Neg); Phencyclidine, Urine Neg (Neg)
[2023-12-28] MEDS: hydrOXYzine HCl 25 MG TAB PO PRN (11:06)
--- NOTE | 2023-12-28 14:44 | Hospitalist Progress Note ---
Date of Service December 28, 2023 Assessment & Plan (1) Acute pain of left shoulder: (2) Ambulatory dysfunction: (3) Intractable pain: (4) Neck pain: (5) Uncontrolled hypertension: (6) Chronic obstructive bronchitis with pulmonary emphysema: (7) Anxiety: (8) Depression: Plan This is a 68yo F with a PMH of chronic neck and back pain, significant hypertension, anxiety/mood disorder, prediabetes as per records, ongoing tobacco abuse who presents with acute on chronic neck, back and shoulder pain and request for placement. Intractable neck, back pain Primarily in C spine, across trapezius muscle extending to left shoulder Cervical spine CT with no acute cervical spine fracture or subluxation. Stable postoperative findings within the cervical spine. Thoracic spine CT with no acute bony abnormality is seen involving the thoracic spine. Shoulder XR with no acute fracture within the left shoulder. Severe left glenohumeral joint osteoarthritis. Osteopenia with chronic and postsurgical changes as above. Denies any falls lately, is on baclofen 10mg TID PRN, duloxetine 120mg daily, pregabalin 100mg TID, PRN tylenol as home regimen Given 5mg oxycodone, 0.5mg IV ativan and lidocaine patch in ED without relief Given another dose of IV ativan in ED along with Toradol and 1,000mg Tylenol Scheduled Valium 2mg Q8H, Tylenol 1,000mg Q8H, PRN Toradol, resume home Lyrica as above Was previously on chronic narcotics and self-weaned last January, per patient Pain management consulted - Patient's pain profile currently seems to be multifactorial. 1. Neck/C-spine pain to the upper and midportion regions felt to be due to the previous surgeries. Pain to the lower cervical region and into the trapezius and upper back musculature felt to be referred pain from cervical/thoracic facet arthropathy, as a majority component of motion is now occurring at the levels below the fusion from C3-C7. Discussed that we could consider a future series of medial branch nerve blocks to her lower cervical and upper thoracic region. Then if effective, would plan for a radiofrequency ablation. * Likely would include some or all of the following levels: C7-T1, T1-2, T2-3 * If patient is interested, this would be facilitated as an outpatient at the pain management clinic. 2. Recommend utilizing the ordered oxycodone as needed. Then, attempt to wean off prior to discharge. * However, if it is felt that continuing on opiates is necessary for proper pain control, the patient could be referred to the [facility] in [place] for continuation of a prescription. 3. Recommend considering adding course of IV vs. oral steroids. 4. Could give consideration for increasing Lyrica to 150 mg TID, however, with concern for potential polypharmacy issues, would recommend psychiatry consult. * Patient did voice opinion that, "I cannot live with this pain and sometimes I feel like it would be better if I just did not wake up". 5. There is presence of severe left shoulder glenohumeral arthritis, and the patient does seem to be bothered quite a bit by intrinsic left shoulder pain. With exam demonstrating that she has little to no rotator cuff function, this indicates a rotator cuff tear arthropathy. * Recommend orthopedics consult for consideration of left shoulder intra- articular injection. 6. Agree with PT/OT. Patient agreeable to see pain management as outpt. Orthopedics consulted re: shoulder pain Uncontrolled HTN BP initially 180/100 during evaluation, did not take home meds Given missed hctz 12.5mg, amlodipine 2.5mg, increased pain control with improved BP to 165/90 Resume torsemide (recent echo from 2021 with preserved EF, mild pulm htn) Continue to monitor closely, optimize pain control Anxiety Depression Appears anxious Concern for SI initially but when reassessed, denies suicidal ideation Given missed dose of duloxetine, hydroxyzine, received IV ativan in ED Psych liason consulted Prediabetes Carb consistent diet, repeat a1c DVT Ppx: SQ lovenox Code status: FULL PCP: Dr. Guzman Dispo: med tele Admission and Anticipated Discharge Date Admission Date: December 27, 2023 Subjective Pt seen in follow up of back pain, shoulder pain Seen by pain management Continues to have back pain and shoulder pain, will consult orthopedics regarding her shoulder pain no fever, chills, chest pain, shortness of breath, abd. pain, n/v Review of Systems Review of Systems: All systems reviewed & are unremarkable except as noted in Subjective Physical Exam Physical Exam: General Appearance: obese F in NAD, however easily cries during interview Head: normocephalic, atraumatic Eyes: normal inspection, PERRL ENT: external ear and nose normal Neck: normal visual inspection Respiratory: normal respiratory effort, lungs clear to auscultation, no wheeze, rales, rhonchi. Cardiovascular: regular rate, rhythm, no murmur, no BLE edema. Chest: normal inspection of chest Abdomen/GI: normal bowel sounds, soft, nontender Extremities/Musculoskeletal: + Point tenderness on spinous processes of cervical and thoracic spine as well as entire L shoulder and trapezius muscle. Neurologic: PERRL, EOMI, no face palsy, no dysarthria, moves all extremities Psychiatric: A+Ox3, euthymic affect Skin: warm/dry Results & Data Results & Data Vital Signs (Past 12 Hours) Vital Signs Temp Pulse Pulse Resp BP Pulse Ox O2 Del Method 12/28/23 11:19 36.8 C 64 18 120/74 91 Room Air 12/28/23 08:20 Room Air 12/28/23 07:53 36.5 C 61 18 129/68 90 Room Air 12/28/23 07:27 62 12/28/23 03:09 36.8 C 65 18 105/66 90 Room Air Laboratory Results 12/28/23 12/28/23 Range/Units Unknown 06:44 WBC 6.34 (4.8-10.8) K/ul RBC 4.52 (4.20-5.40) M/uL Hgb 13.0 (12.0-16.0) g/dl Hct 40.3 (37.0-47.0) % MCV 89.2 (80.0-100.0) fL MCH 28.8 (25.0-34.0) pg MCHC 32.3 (32.0-36.0) g/dL RDW Std Deviation 49.7 H (36.4-46.3) fL RDW Coeff of Jimi 15.3 H (11.5-14.5) % Plt Count 252 (130-400) K/uL MPV 9.1 L (9.4-12.4) fL Sodium 136 (136-145) mmol/L Potassium 3.9 (3.5-5.1) mmol/L Chloride 100 (98-107) mmol/L Carbon Dioxide 30 (21-32) mmol/L Anion Gap 6 (3-11) BUN 18 (6-23) mg/dl Creatinine 0.91 (0.6-1.2) mg/dl Est Cr Clr Drug Dosing 63.2 ml/min Est GFR ( Amer) 74.6 ml/min Est GFR (Non-Af Amer) 64.4 ml/min BUN/Creatinine Ratio 19.8 (10-20) Glucose 96 (70-99(Fasting)) mg/dl Estimat Average Glucose 117 mg/dl Hemoglobin A1c 5.7 H (4.5-5.6) % Calcium 8.8 (8.6-10.3) mg/dl Urine Opiates Screen Neg (Neg) Ur Methadone, Qual Neg (Neg) Urine Barbiturates Neg (Neg) Ur Phencyclidine (PCP) Neg (Neg) U Amphetamin/Meth Scrn Neg (Neg) Urine MDEA Pending MDMA (Ecstasy) Screen Pos H (Neg) MDMA Pending Urine MDMA Pending U OH-Alprazolam Confrm Pending U Benzodiazepines Scrn Pos H (Neg) 7-Amino Clonazepam Pending Ur Nordiazepam Confirm Pending U OH-ethylflurazepam Pending U Lorazepam Cnf GC/MS Pending U Oxazepam Confm GC/MS Pending Ur Temazepam Confirm Pending U OH-Triazolam Confirm Pending U OH-Midazolam Confirm Pending Ur Cocaine Metabolite Neg (Neg) U Marijuana (THC) Screen Pos H (Neg) U Marijuana THC Carboxy Pending Drug Screen Comment Pending Hepatitis C Ab (EIA) Pending Medications Administered Current Inpatient Medications Acetaminophen (Acetaminophen 500 Mg Tab) 1,000 mg PO Q8H [facility] Stop: 01/26/24 21:59 Last Admin: 12/28/23 13:29 Dose: 1,000 mg Albuterol (Albuterol 0.083% Nebu Soln 3 Ml Vial) 2.5 mg INH Q4R PRN; Protocol PRN Reason: Shortness Of Breath Or Wheezing Stop: 01/26/24 16:16 Albuterol (Albuterol Hfa 8 Gm Inhaler) 1 puffs INH Q6R PRN PRN Reason: shortness of breath or wheezin Stop: 01/26/24 16:16 Amlodipine Besylate (Amlodipine Besylate 5 Mg Tab) 2.5 mg PO DAILY [facility] Stop: 01/27/24 08:59 Last Admin: 12/28/23 08:50 Dose: 2.5 mg Atorvastatin Calcium (Atorvastatin 20 Mg Tab) 20 mg PO QAM [facility] Stop: 01/27/24 08:59 Last Admin: 12/28/23 08:49 Dose: 20 mg Bupropion HCl (Bupropion Xl 300 Mg Tabcr) 300 mg PO DAILY [facility] Stop: 01/27/24 08:59 Last Admin: 12/28/23 08:50 Dose: 300 mg Diazepam (Diazepam 2 Mg Tablet) 2 mg PO Q8H [facility] Stop: 01/26/24 21:59 Last Admin: 12/28/23 13:29 Dose: 2 mg Duloxetine HCl (Duloxetine Hcl 60 Mg Cap) 120 mg PO QAM [facility] Stop: 01/27/24 08:59 Last Admin: 12/28/23 08:49 Dose: 120 mg Enoxaparin Sodium (Enoxaparin Inj 40 Mg/0.4 Ml Syr) 40 mg SQ Q24H [facility] Stop: 01/26/24 16:29 Last Admin: 12/27/23 17:40 Dose: 40 mg Hydrochlorothiazide (Hydrochlorothiazide 25 Mg Tab) [facility] Stop: 01/27/24 08:59 Last Admin: 12/28/23 08:50 Dose: 12.5 mg Hydroxyzine HCl (Hydroxyzine Hcl 25 Mg Tab) 50 mg PO QID PRN PRN Reason: Anxiety Stop: 01/26/24 16:16 Last Admin: 12/28/23 11:06 Dose: 50 mg Ketoconazole (Ketoconazole 2% Cr 15 Gm Tube) 1 appln EXT BID [facility] Stop: 01/06/24 20:59 Last Admin: 12/28/23 08:49 Dose: 1 appln Ketorolac Tromethamine (Ketorolac Tromethamine 15 Mg/Ml Vial) 15 mg IV Q8H PRN PRN Reason: Pain Stop: 12/29/23 22:59 Miscellaneous (Remove Lidoderm Patch) 1 each N/A DAILY@2100 [facility] Stop: 01/26/24 20:59 Last Admin: 12/27/23 20:52 Dose: 1 each Ondansetron HCl (Ondansetron Inj 2 Mg/Ml 2 Ml Vial) 4 mg IV Q6H PRN PRN Reason: Nausea Stop: 01/26/24 16:16 Oxycodone HCl (Oxycodone Hcl Ir 5 Mg Tab (Immediate Release)) 5 - 10 mg PO Q6H PRN PRN Reason: Severe Pain (Scale 7, 8, 9,10) Stop: 01/10/24 17:03 Last Admin: 12/28/23 09:03 Dose: 10 mg Polyethylene Glycol (Polyethylene (Miralax) 17 Gm Pack) 17 gm PO DAILY PRN PRN Reason: Constipation Stop: 01/26/24 16:16 Pregabalin (Pregabalin 100 Mg Cap) 100 mg PO TID@0800,1200,2000 [facility] Stop: 01/26/24 19:59 Last Admin: 12/28/23 11:37 Dose: 100 mg Torsemide (Torsemide 10 Mg Tab) 5 mg PO DAILY [facility] Stop: 01/27/24 08:59 Last Admin: 12/28/23 08:50 Dose: 5 mg Trazodone HCl (Trazodone Hcl 50 Mg Tab) 150 mg PO HS [facility] Stop: 01/26/24 20:59 Last Admin: 12/27/23 20:52 Dose: 150 mg Umeclidinium/Vilanterol (Umeclidinium/Vilanterol 62.5/25mcg 7 Puffs/Inhaler) 1 puffs INH DAILY [facility] Stop: 01/27/24 08:59 Last Admin: 12/28/23 08:49 Dose: 1 puffs
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
[2023-12-28] MEDS: POLYETHYLENE (MIRALAX) 17 GM PACK PO PRN (16:40)
[2023-12-29 06:27] LABS: BUN Creatinine Ratio 22.4 (10-20); Creatinine Clr Calc Pharmacy 75.3 ml/min; Est GFR (African American) 92.8 ml/min; Phosphorus 4.9 mg/dl (2.5-4.9); Potassium 4.1 mmol/L (3.5-5.1)
[2023-12-29 06:30] LABS: Hematocrit (blood only) 38.9 % (37.0-47.0); Hemoglobin 12.6 g/dl (12.0-16.0); Mean Corpuscular Hemoglobin 28.9 pg (25.0-34.0); Mean Corpuscular Hgb Conc 32.4 g/dL (32.0-36.0); Mean Corpuscular Volume 89.2 fL (80.0-100.0); Mean Platelet Volume 9.3 fL (9.4-12.4); Platelet Count 234 K/uL (130-400); RDW Coefficient of Variation 15.1 % (11.5-14.5); RDW Standard Deviation 49.8 fL (36.4-46.3); Red Blood Count 4.36 M/uL (4.20-5.40); White Blood Count 6.76 K/ul (4.8-10.8)
--- NOTE | 2023-12-30 12:25 | Hospitalist Progress Note ---
Date of Service December 29, 2023 (late entry) Assessment & Plan (1) Acute pain of left shoulder: (2) Ambulatory dysfunction: (3) Intractable pain: (4) Neck pain: (5) Uncontrolled hypertension: (6) Chronic obstructive bronchitis with pulmonary emphysema: (7) Anxiety: (8) Depression: Plan This is a 68yo F with a PMH of chronic neck and back pain, significant hypertension, anxiety/mood disorder, prediabetes as per records, ongoing tobacco abuse who presents with acute on chronic neck, back and shoulder pain and request for placement. Intractable neck, back pain Primarily in C spine, across trapezius muscle extending to left shoulder Cervical spine CT with no acute cervical spine fracture or subluxation. Stable postoperative findings within the cervical spine. Thoracic spine CT with no acute bony abnormality is seen involving the thoracic spine. Shoulder XR with no acute fracture within the left shoulder. Severe left glenohumeral joint osteoarthritis. Osteopenia with chronic and postsurgical changes as above. Denies any falls lately, is on baclofen 10mg TID PRN, duloxetine 120mg daily, pregabalin 100mg TID, PRN tylenol as home regimen Given 5mg oxycodone, 0.5mg IV ativan and lidocaine patch in ED without relief Given another dose of IV ativan in ED along with Toradol and 1,000mg Tylenol Scheduled Valium 2mg Q8H, Tylenol 1,000mg Q8H, PRN Toradol, resume home Lyrica as above Was previously on chronic narcotics and self-weaned last January, per patient Pain management consulted - Patient's pain profile currently seems to be multifactorial. 1. Neck/C-spine pain to the upper and midportion regions felt to be due to the previous surgeries. Pain to the lower cervical region and into the trapezius and upper back musculature felt to be referred pain from cervical/thoracic facet arthropathy, as a majority component of motion is now occurring at the levels below the fusion from C3-C7. Discussed that we could consider a future series of medial branch nerve blocks to her lower cervical and upper thoracic region. Then if effective, would plan for a radiofrequency ablation. * Likely would include some or all of the following levels: C7-T1, T1-2, T2-3 * If patient is interested, this would be facilitated as an outpatient at the pain management clinic. 2. Recommend utilizing the ordered oxycodone as needed. Then, attempt to wean off prior to discharge. * However, if it is felt that continuing on opiates is necessary for proper pain control, the patient could be referred to the [facility] in [place] for continuation of a prescription. 3. Recommend considering adding course of IV vs. oral steroids. 4. Could give consideration for increasing Lyrica to 150 mg TID, however, with concern for potential polypharmacy issues, would recommend psychiatry consult. * Patient did voice opinion that, "I cannot live with this pain and sometimes I feel like it would be better if I just did not wake up". 5. There is presence of severe left shoulder glenohumeral arthritis, and the patient does seem to be bothered quite a bit by intrinsic left shoulder pain. With exam demonstrating that she has little to no rotator cuff function, this indicates a rotator cuff tear arthropathy. * Recommend orthopedics consult for consideration of left shoulder intra-artic ular injection. 6. Agree with PT/OT. Patient agreeable to see pain management as outpt. Orthopedics consulted re: shoulder pain Patient has severe glenohumeral osteoarthritis. She should follow-up as an outpatient with a surgeon who does shoulder arthroplasty to discuss this as an option (elective surgery). Pt agreeable to follow up w/ orthopedic surgery. Uncontrolled HTN BP initially 180/100 during evaluation, did not take home meds Given missed hctz 12.5mg, amlodipine 2.5mg, increased pain control with improved BP to 165/90 Resume torsemide (recent echo from 2021 with preserved EF, mild pulm htn) Continue to monitor closely, optimize pain control BP controlled Anxiety Depression Appears anxious Concern for SI initially but when reassessed, denies suicidal ideation Given missed dose of duloxetine, hydroxyzine, received IV ativan in ED Psych liason consulted Prediabetes Carb consistent diet, repeat a1c DVT Ppx: SQ lovenox Code status: FULL PCP: Dr. Guzman Dispo: med tele Admission and Anticipated Discharge Date Admission Date: December 27, 2023 Subjective Pt seen in follow up of back pain, shoulder pain Seen by pain management and orthopedics Continues to have back pain and shoulder pain, but feels much more comfortable now however easily cries during interview - will discuss w/ psych no fever, chills, chest pain, shortness of breath, abd. pain, n/v Pt tells me she wants to go home w/HH - discussed w/ CM Review of Systems 2 Review of Systems: All systems reviewed & are unremarkable except as noted in Subjective Physical Exam Physical Exam: General Appearance: obese F in NAD, however easily cries during interview Head: normocephalic, atraumatic Eyes: normal inspection, PERRL ENT: external ear and nose normal Neck: normal visual inspection Respiratory: normal respiratory effort, lungs clear to auscultation, no wheeze, rales, rhonchi. Cardiovascular: regular rate, rhythm, no murmur, no BLE edema. Chest: normal inspection of chest Abdomen/GI: normal bowel sounds, soft, nontender Extremities/Musculoskeletal: + Point tenderness on spinous processes of ce rvical and thoracic spine as well as entire L shoulder and trapezius muscle. Neurologic: PERRL, EOMI, no face palsy, no dysarthria, moves all extremities Psychiatric: A+Ox3, euthymic affect Skin: warm/dry
--- NOTE | 2023-12-30 15:12 | Discharge Summary ---
Date of Service December 30, 2023 Admission HPI Per Admitting Provider This is a 68yo F with a PMH of chronic neck and back pain, significant hypertension, anxiety/mood disorder, prediabetes as per records, ongoing tobacco abuse who presents with worsening back pain and request for placement. Patient has longstanding chronic pain issues with history of multiple back and neck surgeries, most recent surgery was a cervical spine procedure at [facility] in 2021. Patient was previously on chronic narcotics but weaned herself off of them last January and also quit smoking at that time. Pain has been progressively building since then and had a point today where she did not feel like she could handle it at home anymore. Is crying and in distress during evaluation. Does not feel like she can psychologically or physically handle living alone with the extent of pain she experiences all the time. At one point stated ED provider "I just do not want to wake up anymore with this pain," bringing up initial concern for suicidal ideation, but upon further conversation, patient just feels overwhelmed and her goal is pain management. Denies being suicidal at this time. Pain is described as constant across to her upper back, both shoulders and neck. Is exacerbated with movement and touch. Denies any new weakness or paresthesias but has some chronic nerve damage and has difficulty doing things like buttoning blouses and tying her shoes. Has previously followed with Dr. Arias and is requesting he be consulted on this case. Received oxycodone, Ativan and lidocaine in the ED without any relief. Did not take any medications today including her home blood pressure meds. Feels that she cannot catch her breath, which she is attributing to her anxiety. Is saturating at 95% on room air. No fever, chills, lightheadedness, chest pain, vomiting, abdominal pain, dysuria, diarrhea or constipation. Admission Exam Per Admitting Provider General Appearance: WD/WN, vitals as above, anxious and crying throughout interview, flushed, obese Head: normocephalic, atraumatic Eyes: normal inspection, PERRL, conjunctivae normal, anicteric sclerae ENT: external ear and nose normal, oropharynx normal Neck: normal visual inspection, trachea midline, no thyromegaly Respiratory: normal respiratory effort, lungs clear to auscultation, no wheeze, rales, rhonchi. No accessory muscle use Cardiovascular: regular rate, rhythm, no murmur, normal peripheral pulses, no BLE edema. Vessels: no JVD Chest: normal inspection of chest Abdomen/GI: normal bowel sounds, soft, nontender, no hepatosplenomegaly Extremities/Musculoskeletal: + Point tenderness on spinous processes of cervical and thoracic spine as well as entire L shoulder and trapezius muscle. Extremities motor strength 5/5 Neurologic: PERRL, EOMI, accommodation nl, no face palsy, no dysarthria, CN's II-XI intact bilaterally and moves all extremities Psychiatric: A+Ox3, euthymic affect Skin: no rashes, normal color, warm/dry Principal Diagnosis Back, shoulder pain Discharge Exam General Appearance: obese F in NAD, however easily cries during interview Head: normocephalic, atraumatic Eyes: normal inspection, PERRL ENT: external ear and nose normal Neck: normal visual inspection Respiratory: normal respiratory effort, lungs clear to auscultation, no wheeze, rales, rhonchi. Cardiovascular: regular rate, rhythm, no murmur, no BLE edema. Chest: normal inspection of chest Abdomen/GI: normal bowel sounds, soft, nontender Extremities/Musculoskeletal: + Point tenderness on spinous processes of cervical and thoracic spine as well as entire L shoulder and trapezius muscle (tenderness improved). Neurologic: PERRL, EOMI, no face palsy, no dysarthria, moves all extremities Psychiatric: A+Ox3, euthymic affect Skin: warm/dry Discharge Data Allergies Allergy/AdvReac Type Severity Reaction Status Date / Time Iodinated Contrast Media Allergy Intermediate facial Verified 09/18/22 20:05 swelling [facility] 08/04/19 Penicillins Allergy Unknown SWELLING Verified 09/18/22 20:05 EVERY[facility] Consultations 12/27/23 13:49 ED Decision to Admit Stat 12/27/23 16:03 Consult Pain Management Routine 12/28/23 13:03 Consult Orthopedic Surgery Routine 12/29/23 07:19 Consult Behavioral Health Liaison Routine Ordered Studies 12/27/23 10:14 CT cervical spine wo con Stat FINDINGS: Stable postoperative findings within the cervical spine are noted, including C3-C7 anterior discectomy and fusion. Posterior C3-C6 fusion with multilevel decompression is noted. There is no acute cervical spine fracture. The appearance of the cervical spine is unchanged. No osseous lesions are identified. The central canal and neural foramen are suboptimally assessed given CT technique. There is no prevertebral edema. The hardware is intact. IMPRESSION: No acute cervical spine fracture or subluxation. Stable postoperative findings within the cervical spine. CT thoracic spine wo con Stat FINDINGS: The skeletal structures are osteopenic. There is no evidence of acute fracture or malalignment involving the thoracic spine. There are chronic compression deformities of T12 and L1 status post vertebroplasty. A chronic compression deformity of L2 is unchanged. Fusion hardware is seen in the lower cervical spine. Postlaminectomy change is noted in the upper lumbar spine. There is postoperative change from laminectomy and posterior fusion seen at T7-T8 with interpedicular screws in place. Vertebral body height is otherwise maintained throughout the thoracic spine. Anterior and lateral marginal osteophytes are seen throughout. There is mild hyperkyphosis. Mild multilevel disc space narrowing is seen throughout the thoracic region. A large posterior disc osteophyte complex at T7-T8 is unchanged, as are retropulsed fragments at L1. The transverse and spinous processes appear intact. No lytic or blastic lesion is seen. There is fatty atrophy of the paraspinous musculature. The paraspinous soft tissues are otherwise normal as imaged. There are chronic/healed left posterior rib fractures. The imaged lung parenchyma appears clear. The heart is enlarged and the coronary arteries are densely calcified. IMPRESSION: 1. No acute bony abnormality is seen involving the thoracic spine. 2. Osteopenia with chronic and postsurgical changes as above. Hospital Course (1) Acute pain of left shoulder: (2) Ambulatory dysfunction: (3) Intractable pain: (4) Neck pain: (5) Uncontrolled hypertension: (6) Chronic obstructive bronchitis with pulmonary emphysema: (7) Anxiety: (8) Depression: Plan This is a 68yo F with a PMH of chronic neck and back pain, significant hypertension, anxiety/mood disorder, prediabetes as per records, ongoing tobacco abuse who presents with acute on chronic neck, back and shoulder pain and request for placement. Intractable neck, back pain Primarily in C spine, across trapezius muscle extending to left shoulder Cervical spine CT with no acute cervical spine fracture or subluxation. Stable postoperative findings within the cervical spine. Thoracic spine CT with no acute bony abnormality is seen involving the thoracic spine. Shoulder XR with no acute fracture within the left shoulder. Severe left glenohumeral joint osteoarthritis. Osteopenia with chronic and postsurgical changes as above. Denies any falls lately, is on baclofen 10mg TID PRN, duloxetine 120mg daily, pregabalin 100mg TID, PRN tylenol as home regimen Given 5mg oxycodone, 0.5mg IV ativan and lidocaine patch in ED without relief Given another dose of IV ativan in ED along with Toradol and 1,000mg Tylenol Scheduled Valium 2mg Q8H, Tylenol 1,000mg Q8H, PRN Toradol, resume home Lyrica as above Was previously on chronic narcotics and self-weaned last January, per patient Pain management consulted - Patient's pain profile currently seems to be multifactorial. 1. Neck/C-spine pain to the upper and midportion regions felt to be due to the previous surgeries. Pain to the lower cervical region and into the trapezius and upper back musculature felt to be referred pain from cervical/thoracic facet arthropathy, as a majority component of motion is now occurring at the levels below the fusion from C3-C7. Discussed that we could consider a future series of medial branch nerve blocks to her lower cervical and upper thoracic region. Then if effective, would plan for a radiofrequency ablation. * Likely would include some or all of the following levels: C7-T1, T1-2, T2-3 * If patient is interested, this would be facilitated as an outpatient at the pain management clinic. 2. Recommend utilizing the ordered oxycodone as needed. Then, attempt to wean off prior to discharge. * However, if it is felt that continuing on opiates is necessary for proper pain control, the patient could be referred to the [facility] in [place] for continuation of a prescription. 3. Recommend considering adding course of IV vs. oral steroids. 4. Could give consideration for increasing Lyrica to 150 mg TID, however, with concern for potential polypharmacy issues, would recommend psychiatry consult. * Patient did voice opinion that, "I cannot live with this pain and sometimes I feel like it would be better if I just did not wake up". 5. There is presence of severe left shoulder glenohumeral arthritis, and the patient does seem to be bothered quite a bit by intrinsic left shoulder pain. With exam demonstrating that she has little to no rotator cuff function, this indicates a rotator cuff tear arthropathy. * Recommend orthopedics consult for consideration of left shoulder intra- articular injection. 6. Agree with PT/OT. Patient agreeable to see pain management as outpt. Orthopedics consulted re: shoulder pain Patient has severe glenohumeral osteoarthritis. She should follow-up as an outpatient with a surgeon who does shoulder arthroplasty to discuss this as an option (elective surgery). Pt agreeable to follow up w/ orthopedic surgery. Uncontrolled HTN BP initially 180/100 during evaluation, did not take home meds Given missed hctz 12.5mg, amlodipine 2.5mg, increased pain control with improved BP to 165/90 Resume torsemide (recent echo from 2021 with preserved EF, mild pulm htn) Continue to monitor closely, optimize pain control BP controlled Anxiety Depression Appears anxious Concern for SI initially but when reassessed, denies suicidal ideation Given missed dose of duloxetine, hydroxyzine, received IV ativan in ED Psych liason consulted Prediabetes Carb consistent diet, current Hgba1c 5.7%, follow up as outpt Total Time Total Time Spent Total Time Spent (In Minutes): 40 Discharge Plan Discharge Items Patient Disposition: Home - Home Health Services Reason For Visit: BACK/SHOULDER PAIN Discharge Diagnosis: Back, shoulder pain Activity: Per Instructions section Non-emergency contact: Primary Care Provider, Surgeon and Specialist Call non-emergency contact if: you have any medication questions and your symptoms worsen Follow-up/Referrals: Zion Guzman MD [Primary Care Provider] - (Date & Time 01/04/2024 2:00 PM Provider Zion Guzman III, MD Department [facility] ) Diet: Heart Healthy Add Attending Provider Instructions: Follow up with primary care physician, pain management clinic and orthopedic surgery. The appointment with your primary care doctor was scheduled for you for January 03. Take oxycodone as needed as prescribed, in addition to your home medications. Make sure to take miralax and colace or other stool softener, and make sure you have a regular bowel movement. Addtl [employer] Provider Instructions: Per [facility] orthopedics: activities as tolerated with the left upper extremity Please contact [facility] if you would like to have an appointment with a surgeon, Dr. Kahn or Dr. Myrick to discuss a total shoulder replacement at [phone] May use topical analgesics, lidocaine patches, ice, heat Can use a cane in both hands to do gentle range of motion raising the arms up towards head as tolerated. Pending Studies at Discharge: No Stand-Alone Forms: My [facility], Smoking Cessation Medications and DC Order Prescriptions: New oxycodone 5 mg Tablet 5 mg PO Q4H PRN (Reason: pain) Qty: 14 0RF Continued baclofen 10 mg Tablet 10 mg PO TID PRN (Reason: Muscle Spasm/Pain) atorvastatin 20 mg tablet 20 mg PO QAM acetaminophen [Tylenol Extra Strength] 500 mg Tablet 500 mg PO Q6 PRN (Reason: Pain) Rx Instructions: Unable to verify OTC meds at this date/time. polyethylene glycol 3350 [Miralax] 17 gram powder in packet 17 g PO QAM PRN (Reason: Constipation) hydroxyzine HCl 50 mg tablet 50 mg PO QID PRN (Reason: Anxiety) Rx Instructions: morning,noon,evening and bedtime trazodone 150 mg tablet 150 mg PO HS pregabalin 100 mg capsule 100 mg PO TID Rx Instructions: take in morning,noon and bedtime ondansetron 4 mg tablet,disintegrating 4 mg PO Q8 PRN (Reason: Nausea) Rx Instructions: allow to dissolve on tongue albuterol sulfate 90 mcg/actuation HFA aerosol inhaler 1 inh inhalation Q6H PRN (Reason: shortness of breath or wheezing) Qty: 8.5 0RF amlodipine 2.5 mg tablet 2.5 mg PO DAILY torsemide 5 mg tablet 5 mg PO DAILY nystatin 100,000 unit/gram powder 1 applic TOPICAL TID ketoconazole 2 % cream 1 applic TOPICAL BID bupropion HCl 300 mg tablet extended release 24 hr 300 mg PO DAILY hydrochlorothiazide 12.5 mg tablet 12.5 mg PO QAM Anoro Ellipta 62.5-25 mcg/actuation blister with device 1 inh inhalation DAILY duloxetine 60 mg capsule,delayed release(DR/EC) 120 mg PO QAM albuterol sulfate 2.5 mg /3 mL (0.083 %) solution for nebulization 2.5 mg inhalation Q4H PRN (Reason: Shortness Of Breath Or Wheezing) Discharge Orders: Discharge Order (Routine); Ordered 12/30/23 Ordered By: Bartolome Gipson Admission Data Admit Date/Time: 12/27/23 14:08 Attending Provider: Bartolome Gipson Admit Provider: Hayde Ricci Primary Care Provider: Zion Guzman Other Providers: Hayde Ricci; Jose Lopez; Aikl Gray
[2023-12-30] MEDS: DOCUSATE SODIUM SYRUP 100 MG/10 ML UDC PO STA (15:29)
[2023-12-30] MEDS: POLYETHYLENE (MIRALAX) 17 GM PACK PO ONE (15:29)
[2024-01-02 11:02] LABS: 7-Aminoclonaz, Confirm NEGATIVE ng/mL (<25); Hydro-Alp Ur, GC/MS NEGATIVE ng/mL (<25); Hydroxyethylflurazepam, Conf NEGATIVE ng/mL (<50); Hydroxymidazolam Ur, GC/MS NEGATIVE ng/mL (<50); Hydroxytriazolam NEGATIVE ng/mL (<50); Lorazepam, Ur GC/MS 1220 ng/mL (<50); MDA negative; MDEA negative; MDMA (Ecstasy) Urine, Confirm negative; Marijuana Quant, GCMS Urine 4873 ng/mL (<5); Nordiazepam, Confirm 125 ng/mL (<50); Oxazepam Ur, GC/MS NEGATIVE ng/mL (<50); Temazepam, Confirm NEGATIVE ng/mL (<50)
== END 2023-12-30 15:53 | disposition home health service (06) | DRG 554 ==
LOC: ED 09:29 → 2N 14:08 → SUATTDRO 14:08 → 2N 15:55
DX: R45.851 Suicidal ideations; Z88.0 Allergy status to penicillin; Z79.899 Other long term (current) drug therapy; Z91.041 Radiographic dye allergy status; J44.89 Other specified chronic obstructive pulmonary disease; Z87.891 Personal history of nicotine dependence; R73.03 Prediabetes; F32.A Depression, unspecified; J43.9 Emphysema, unspecified; M19.012 Primary osteoarthritis, left shoulder; M54.50 Low back pain, unspecified; M25.512 Pain in left shoulder

== ENCOUNTER 2024-01-02 11:49 | Inpatient (IN) ==
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
[2024-01-02] MEDS: HYDROmorphone INJ 0.5 MG/0.5 ML SYR IV STA (15:06)
[2024-01-02] MEDS: LIDOCAINE 5% 1 PATCH TD STA (16:59)
[2024-01-02] MEDS: KETOROLAC TROMETHAMINE 15 MG/ML VIAL IV ONE (17:04)
[2024-01-02] MEDS: diphenhydrAMINE 50 MG/ML VIAL IV STA (17:04)
[2024-01-02] MEDS: methylPREDNISolone 125 MG/2 ML VIAL IV STA (17:04)
[2024-01-02 17:20] LABS: Calcium 9.7 mg/dl (8.6-10.3); Creatinine Clr Calc Pharmacy 100.8 ml/min; Est GFR (African American) 108.4 ml/min; Est GFR (Non-African American) 93.5 ml/min; Potassium 3.9 mmol/L (3.5-5.1)
[2024-01-02 17:26] LABS: Troponin I High Sensitivity 6.3 pg/ml (0-14)
[2024-01-02 17:27] LABS: Basophils # (auto) 0.04 K/uL (0.00-0.20); Basophils % (auto) 0.6 %; Eosinophils # (auto) 0.11 K/uL (0.00-0.50); Eosinophils % (auto) 1.5 %; Hematocrit (blood only) 42.4 % (37.0-47.0); Hemoglobin 14.1 g/dl (12.0-16.0); Immature Granulocytes # (auto) 0.03 K/uL (0.01-0.20); Immature Granulocytes % (auto) 0.4 %; Lymphocytes # (auto) 1.31 K/uL (1.20-3.40); Lymphocytes % (auto) 18.4 %; Mean Corpuscular Hemoglobin 29.1 pg (25.0-34.0); Mean Corpuscular Hgb Conc 33.3 g/dL (32.0-36.0); Mean Corpuscular Volume 87.6 fL (80.0-100.0); Mean Platelet Volume 9.7 fL (9.4-12.4); Monocytes # (auto) 0.37 K/uL (0.11-0.59); Monocytes % (auto) 5.2 %; Neutrophils # (auto) 5.26 K/uL (1.40-6.50); Neutrophils % (auto) 73.9 %; Platelet Count 302 K/uL (130-400); RDW Coefficient of Variation 14.5 % (11.5-14.5); RDW Standard Deviation 46.7 fL (36.4-46.3); Red Blood Count 4.84 M/uL (4.20-5.40); White Blood Count 7.12 K/ul (4.8-10.8)
[2024-01-02 17:28] LABS: iSTAT Creatinine 0.5 mg/dl (0.6-1.3); iSTAT Hemoglobin 14.3 g/dl (12.0-16.0); iSTAT Ionized Calcium 1.1 mmol/l (1.12-1.32); iSTAT Potassium 3.5 mmol/L (3.3-5.0)
--- NOTE | 2024-01-02 19:01 | CT Scan Report ---
CT chest diagnostic wo con CLINICAL HISTORY: Aneursym, worsening back pain TECHNIQUE: Multidetector row helical CT of the chest was performed. Coronal and sagittal reformations were obtained. Automated dose lowering techniques and/or adjustment according to patient size were u tilized for this exam. CT DOSE: 1177.99 mGy.cm Comparison: Comparison is made to CT chest 08/15/2023 FINDINGS: Lungs and pleura: Atelectasis versus scarring is seen in the dependent portions of the lungs. Heart and pericardium: Cardiomegaly is seen with biatrial enlargement. Vessels: Ascending aorta measures 40 mm in diameter. Severe atherosclerotic changes in the aorta and coronary arteries. No evidence of intramural hematoma. Mediastinum and rich: Unremarkable. Chest wall and lower neck: Unremarkable. Abdomen: Unremarkable. Bones: Degenerative changes in the thoracic spine. Compression deformity is seen with cemented arthro plasties at T12 and L1, unchanged from prior exam. Posterior fixation hardware in T7-T8 and ACDF are again noted. Old healed left rib fractures are seen. IMPRESSION: Stable minimal ascending aortic aneurysm. Within the limits of a noncontrast exam, no evidence of acu te aortic injury. No other acute abnormalities are seen to explain chest pain. ACT 112: Negative or not required by law. Electronically signed by: René Meneses M.D. 01/02/2024 6:59 PM
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
--- OUTSIDE RECORDS SUMMARY | 2024-01-02 19:12 | External Medical Summary | Summary of Care ---
Author Name Unknown Organization [facility] Address [address] [place] [address] Phone [phone] Care Team Providers Care Lens Dotter Name Role Phone Thomas LEIVA MD, Zion Mireles Primary Care Provider Reason for Visit * Reason Onset Date Comments [facility]: Maintenance 12/27/2023 Encounter Details Date Type Department Care Team (Late st Contact Info) Description 12/27/2023 Telephone [facility], [facility] [address] [place] [address] Jasmine Jones, RN [address] [place] [address] [facility]: Maintenance Allergies Active Allergy [...] bedtime. 270 Capsule 1 09/21/2023 Active Nystatin 595871 UNIT/GM External Powder (Nystop) Apply 1 Dose [...] ventilatory impairment.This interpretation has been electronically signed: Berna Raz Divina 03/06/2023 02:38:36 PM Last Assessment & [...] rupture 03/04 Atherosclerosis of coronary artery of [place] heart without angina pectoris 03/22/2023 History of [...] encounter Miscellaneous Notes * Telephone Encounter - Jasmine Jones RN - 12/27/2023 11:49 AM EDT Called pt to reschedule next week's appt - She reports she is currently at [facility] ED - states she hasbeen having horrible pain of her back and her neck and also thinks she tore her rotator cuff of left shoulder - had a near fall over the weekend. She went to the ED around 8 or 9 am this morning Will add for f/u call tomorrow to check status. documented in this encounter Plan of Treatment Upcoming Encounters Date Type Department Care Team (Late st Contact Info) Description 12/28/2023 12:00 PM EDT [facility]uled [facility]phone [facility], [facility] [address] [address] Coordinator, [facility] [address] [address] 01/05/2024 11:00 AM EDT Office Visit Family Practice [facility] [place] [address] [place] [address] Gris Obrien PA-C 200 [facility] [place] [address] 03/14/2024 1:20 PM EDT Office Visit Nutrition & Weight Management, [facility] [address] [place] [address] Yajaira Cook PA-C [address] [place] [address] 05/11/2024 12:40 PM EDT Office Visit Family Practice [facility] [address] [place] [place] [address] Daniela Xavier MD 200 [facility] [place] [address] 05/30/2024 3:30 PM EDT Office Visit Care at Home [address] [place] [address] Amber Goldman PA-C [address] [place] [address] 10/04/2024 1:40 PM EST Office Visit Nephrology, [facility] 200 [facility] [place], [place] [address] Zahira Edward MD 200 [place] [address] Scheduled Procedures Name Priority Associated Diagnoses Date/Ti [...] Additional history exists CKD PHOS USE SMARTSET 52674 06/17/202406/03, 06/03/2020, 03/05/2019, Additional history exists COLONOSCOPY-EVERY 5 YRS AGES 18-100 06/26/2024 06/26/2019, 06/26/2019, 09/30/2008 CKD HGB USE SMARTSET 25262 09/14/202409/14, 02/07/2023, 12/16/2021, Additional history exists O2 [...] D LEVEL ONCE IN A LIFETIME-USE SMARTSET# [id number] Completed 02/07/2023, 12/07/2017, 05/03/2013, Additional history exists [...] Relationship Healthcare Agent Relationship Communication Timothy Godinez" [facility] are Warehouse General Laborer (appointed verbally by patient or by statute hierarchy) Care Teams Lens Dotter Relationship Specialty Start Date End Date Zion Guzman III, MD 200 [place] [address] PCP - General 05/17/1996 documented as of this encounter
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
[2024-01-02] MEDS ORDERED: ALBUTEROL 0.083% NEBU SOLN 3 ML VIAL INH PRN (22:24)
[2024-01-02] MEDS ORDERED: POLYETHYLENE (MIRALAX) 17 GM PACK PO PRN (22:24)
[2024-01-02] MEDS ORDERED: ALBUTEROL HFA 8 GM INHALER INH PRN (22:24)
[2024-01-02] MEDS ORDERED: ACETAMINOPHEN 325 MG TAB PO PRN (22:24)
[2024-01-02] MEDS: PREGABALIN 100 MG CAP PO SCH (22:50)
[2024-01-02] MEDS: traZODone HCL 50 MG TAB PO SCH (22:50)
[2024-01-02] MEDS: oxyCODONE HCL IR 5 MG TAB (IMMEDIATE RELEASE) PO PRN (22:50)
[2024-01-02] MEDS: hydrOXYzine HCl 25 MG TAB PO PRN (22:50)
[2024-01-02] MEDS: ENOXAPARIN INJ 40 MG/0.4 ML SYR SQ SCH (23:31)
[2024-01-02] MEDS: KETOCONAZOLE 2% CR 15 GM TUBE EXT SCH (23:32)
[2024-01-03] MEDS: HYDROmorphone INJ 0.5 MG/0.5 ML SYR IV PRN (05:41)
[2024-01-03 06:00] LABS: Basophils # (auto) 0.01 K/uL (0.00-0.20); Basophils % (auto) 0.1 %; Hematocrit (blood only) 44.3 % (37.0-47.0); Hemoglobin 14.7 g/dl (12.0-16.0); Immature Granulocytes # (auto) 0.05 K/uL (0.01-0.20); Immature Granulocytes % (auto) 0.6 %; Lymphocytes # (auto) 1.04 K/uL (1.20-3.40); Lymphocytes % (auto) 12.2 %; Mean Corpuscular Hemoglobin 29.2 pg (25.0-34.0); Mean Corpuscular Hgb Conc 33.2 g/dL (32.0-36.0); Mean Corpuscular Volume 87.9 fL (80.0-100.0); Monocytes # (auto) 0.13 K/uL (0.11-0.59); Monocytes % (auto) 1.5 %; Neutrophils # (auto) 7.29 K/uL (1.40-6.50); Neutrophils % (auto) 85.6 %; Platelet Count 266 K/uL (130-400); RDW Coefficient of Variation 14.5 % (11.5-14.5); RDW Standard Deviation 46.4 fL (36.4-46.3); Red Blood Count 5.04 M/uL (4.20-5.40); White Blood Count 8.52 K/ul (4.8-10.8)
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
[2024-01-03 06:19] LABS: Calcium 9.4 mg/dl (8.6-10.3); Potassium 3.9 mmol/L (3.5-5.1)
[2024-01-03 06:25] LABS: BUN Creatinine Ratio 23.8 (10-20); Creatinine Clr Calc Pharmacy 93.1 ml/min; Est GFR (African American) 106.1 ml/min; Est GFR (Non-African American) 91.5 ml/min
[2024-01-03] MEDS: hydroCHLOROthiazide 25 MG TAB PO SCH (08:24)
[2024-01-03] MEDS: DULoxetine HCL 60 MG CAP PO SCH (08:24)
[2024-01-03] MEDS: amLODIPine BESYLATE 5 MG TAB PO SCH (08:24)
[2024-01-03] MEDS: ATORVASTATIN 20 MG TAB PO SCH (08:24)
[2024-01-03] MEDS: buPROPion XL 300 MG TABCR PO SCH (08:24)
[2024-01-03] MEDS: TORSEMIDE 10 MG TAB PO SCH (08:25)
[2024-01-03] MEDS: UMECLIDINIUM/VILANTEROL 62.5/25MCG 7 PUFFS/INHALER INH SCH (08:26)
[2024-01-03] MEDS ORDERED: ONDANSETRON INJ 2 MG/ML 2 ML VIAL IV PRN (08:42)
[2024-01-03] MEDS ORDERED: LIDOCAINE 5% 1 PATCH TD SCH (09:00)
[2024-01-03] MEDS: oxyCODONE HCL IR 5 MG TAB (IMMEDIATE RELEASE) PO STA (10:05)
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
[2024-01-03] MEDS: oxyCODONE HCL IR 5 MG TAB (IMMEDIATE RELEASE) PO PRN (13:52)
--- NOTE | 2024-01-03 14:08 | Hospitalist Progress Note ---
Date of Service January 03, 2024 Assessment & Plan (1) Acute pain of left shoulder: (2) Essential hypertension: (3) Hyperlipidemia: (4) Depression: (5) Anxiety: (6) Morbid obesity with BMI of 40.0-44.9, adult: Plan 68-year-old female with past medical history significant for hyperlipidemia, history of hyperkalemia, history of mild COPD, history of pulmonary hypertension, hypertension, aneurysm of ascending aorta, history of CAD, atherosclerosis of abdominal aorta, chronic gastritis, CKD stage III, degenerative disc disease, history of compression fracture of spine, lumbar spine pain, thoracic spine pain, depression, PTSD, comes with left shoulder pain. Patient recently in the hospital for back pain and requesting placement. She also seen by orthopedics for acute pain of left shoulder. Seems she has severe glenohumeral osteoarthritis. Ortho discussed about steroid shot versus shoulder arthroplasty. Patient supposed to follow-up with orthopedics as outpatient. Patient states she ambulates with walker. Today while she was ambulating in her house she felt like falling down and she used the left hand to hold to avoid falling when she pulled her left shoulder and since then having severe pain. In the ER she was given dose of iv steroid,placed on lidocaine patch and pain medications and planned to discharge but patient was having significant pain and and reluctant to be discharged. Denies any headache. Has chronic neck pain. Denies any chest pain or shortness of breath. No fevers. No nausea. No abdominal pain. Normal bowel and bladder movements. Currently resting comfortably and hemodynamically stable. Somewhat tearful. Acute left shoulder pain Severe glenohumeral osteoarthritis Pain control with, lidocaine patch, p.o. and IV pain medications as needed Orthopedics planning on Outpatient eval on 01/04 for possible replacement vs Reverse TSA Ortho recommends oxy IR 10mg q4hr as needed for severe pain Pt was tearful in pain this a.m. Ortho is okay from their standpoint to discharge; however will observe overnight for adequate pain control Plan to discharge in a.m. if adequate pain control, PT/OT ordered Mild COPD Continue home inhalers no acute exacerbation Hypertension On amlodipine, hydrochlorothiazide and torsemide BP elevated likely in setting of pain Ascending aortic aneurysm stable, noted on admitting CT 4.0cm Prediabetes HbA1c was 5.7 last admission Depression and anxiety On bupropion, duloxetine and trazodone Hydroxyzine as needed Hyperlipidemia On statin Obesity, BMI 40.2 Needs counseling Nutrition follow-up DVT prophylaxis Lovenox Disposition Medical floor Full code Pt was seen and examined in collaboration with Dr. Portillo, please see addendum A total of 46 minutes was spent coordinating, documenting, and providing care for this patient excluding time spent in the performance of separately billed services. This included personally viewing all current laboratories and imaging studies, medication reconciliation, outpatient chart review, and discussion with specialists. Admission and Anticipated Discharge Date Admission Date: January 02, 2024 Supervising Physician Co-Signing Physician Notes Attending addendum: The patient was seen and examined in medical floor She complains today of severe pain involving the left shoulder She is being admitted second time with same problem and will have evaluation by the orthopedic surgeon as an outpatient for definitive surgery Pain is not controlled Denies any other significant symptoms On examination Lying in bed with acute distress due to left shoulder pain Started to cry with the pain during my examination Hemodynamically stable with blood pressure on the upper side at 152/83 Chest-clear to auscultate bilaterally Heart-S1-S2, regular Abdomen-benign Her labs and imaging studies and medications reviewed Severe acute left shoulder pain secondary to severe arthritis as mentioned above Will increase oxycodone to 10 mg every 4 hourly as needed for pain control She was strongly advised to keep appointment with orthopedic surgeon on for definitive definitive management of left shoulder Agree with assessment and plan as outlined above by Sujatha portillo Subjective Patient was seen and examined in room 352-1. F/U L shoulder pain. She states she is in a significant amount of pain. She is requesting pain medication. She states ortho saw her already and they want to meet with her in their office. She denies f/c/s, chest pain, sob, n/v/d. Review of Systems Review of Systems: All systems reviewed & are unremarkable except as noted in HPI & below Physical Exam Physical Exam: Gen: WD/WN, NAD, A&O x3 HEENT: Normocephalic, atraumatic, conjunctivae moist, sclerae anicteric, mucous membranes moist. Lung: Clear to Auscultation bilaterally, no wheezes/rales/rhonchi Heart: Regular rate, regular rhythm, no murmurs, rubs, or gallops Abdomen: Soft, NT, ND +BS x 4 Extremities: LUE sling, NVI distally, no erythema, edema Skin: Warm, no rash, negative turgor. Results & Data Results & Data Vital Signs (Past 12 Hours) Vital Signs Temp Pulse Pulse BP Pulse Ox O2 Del Method 01/03/24 12:03 36.9 C 72 162/84 H 91 Room Air 01/03/24 08:00 Room Air 01/03/24 07:45 36.7 C 80 168/80 H 99 Room Air Medications Administered Current Inpatient Medications Acetaminophen (Acetaminophen 325 Mg Tab) 650 mg PO Q4H PRN PRN Reason: pain/fever Stop: 02/01/24 22:23 Albuterol (Albuterol 0.083% Nebu Soln 3 Ml Vial) 2.5 mg INH Q4H PRN; Protocol PRN Reason: Shortness Of Breath Or Wheezing Stop: 02/01/24 22:23 Albuterol (Albuterol Hfa 8 Gm Inhaler) 1 puffs INH Q6H PRN PRN Reason: shortness of breath or wheezing Stop: 02/01/24 22:23 Amlodipine Besylate (Amlodipine Besylate 5 Mg Tab) 2.5 mg PO DAILY [facility] Stop: 02/02/24 08:59 Last Admin: 01/03/24 08:24 Dose: 2.5 mg Atorvastatin Calcium (Atorvastatin 20 Mg Tab) 20 mg PO QAM [facility] Stop: 02/02/24 08:59 Last Admin: 01/03/24 08:24 Dose: 20 mg Baclofen (Baclofen 10 Mg Tab) 10 mg PO TID PRN PRN Reason: Muscle Spasm/Pain Stop: 02/01/24 22:23 Bupropion HCl (Bupropion Xl 300 Mg Tabcr) 300 mg PO DAILY [facility] Stop: 02/02/24 08:59 Last Admin: 01/03/24 08:24 Dose: 300 mg Duloxetine HCl (Duloxetine Hcl 60 Mg Cap) 120 mg PO QAM [facility] Stop: 02/02/24 08:59 Last Admin: 01/03/24 08:24 Dose: 120 mg Enoxaparin Sodium (Enoxaparin Inj 40 Mg/0.4 Ml Syr) 40 mg SQ BID [facility] Stop: 02/01/24 22:44 Last Admin: 01/03/24 08:24 Dose: 40 mg Hydrochlorothiazide (Hydrochlorothiazide 25 Mg Tab) 12.5 mg PO QAM [facility] Stop: 02/02/24 08:59 Last Admin: 01/03/24 08:24 Dose: 12.5 mg Hydromorphone HCl (Hydromorphone Inj 0.5 Mg/0.5 Ml Syr) 0.5 mg IV Q4H PRN PRN Reason: Severe Pain (Scale 7, 8, 9,10) Stop: 01/16/24 22:23 Last Admin: 01/03/24 11:28 Dose: 0.5 mg Hydroxyzine HCl (Hydroxyzine Hcl 25 Mg Tab) 50 mg PO QID PRN PRN Reason: Anxiety Stop: 02/01/24 22:23 Last Admin: 01/02/24 22:50 Dose: 50 mg Ketoconazole (Ketoconazole 2% Cr 15 Gm Tube) 1 appln EXT BID [facility] Stop: 01/12/24 22:23 Last Admin: 01/03/24 08:25 Dose: 1 appln Lidocaine (Lidocaine 5% 1 Patch) 1 patch TD HS [facility] Stop: 02/02/24 20:59 Miscellaneous (Remove Lidoderm Patch) 1 each N/A DAILY [facility] Stop: 02/02/24 06:59 Last Admin: 01/03/24 05:41 Dose: 1 each Ondansetron HCl (Ondansetron Inj 2 Mg/Ml 2 Ml Vial) 4 mg IV Q6H PRN PRN Reason: Nausea And Vomiting Stop: 02/02/24 08:41 Oxycodone HCl (Oxycodone Hcl Ir 5 Mg Tab (Immediate Release)) 10 mg PO Q4H PRN PRN Reason: pain Stop: 01/16/24 22:23 Last Admin: 01/03/24 13:52 Dose: 10 mg Polyethylene Glycol (Polyethylene (Miralax) 17 Gm Pack) 17 gm PO DAILY PRN PRN Reason: Constipation Stop: 02/01/24 22:23 Pregabalin (Pregabalin 100 Mg Cap) 100 mg PO TID [facility] Stop: 02/01/24 22:23 Last Admin: 01/03/24 13:50 Dose: 100 mg Torsemide (Torsemide 10 Mg Tab) 5 mg PO DAILY [facility] Stop: 02/02/24 08:59 Last Admin: 01/03/24 08:25 Dose: 5 mg Trazodone HCl (Trazodone Hcl 50 Mg Tab) 150 mg PO HS [facility] Stop: 02/01/24 22:23 Last Admin: 01/02/24 22:50 Dose: 150 mg Umeclidinium/Vilanterol (Umeclidinium/Vilanterol 62.5/25mcg 7 Puffs/Inhaler) 1 puffs INH DAILY [facility] Stop: 02/02/24 08:59 Last Admin: 01/03/24 08:26 Dose: 1 puffs
[2024-01-03] MEDS: POLYETHYLENE (MIRALAX) 17 GM PACK PO PRN (20:05)
[2024-01-03] MEDS: LIDOCAINE 5% 1 PATCH TD SCH (20:06)
[2024-01-04 07:00] LABS: Hematocrit (blood only) 37.2 % (37.0-47.0); Hemoglobin 12.5 g/dl (12.0-16.0); Mean Corpuscular Hemoglobin 29.1 pg (25.0-34.0); Mean Corpuscular Hgb Conc 33.6 g/dL (32.0-36.0); Mean Corpuscular Volume 86.7 fL (80.0-100.0); Platelet Count 258 K/uL (130-400); RDW Coefficient of Variation 14.9 % (11.5-14.5); RDW Standard Deviation 47.4 fL (36.4-46.3); Red Blood Count 4.29 M/uL (4.20-5.40); White Blood Count 9.62 K/ul (4.8-10.8)
[2024-01-04 07:41] LABS: BUN Creatinine Ratio 23.5 (10-20); Calcium 8.8 mg/dl (8.6-10.3); Creatinine Clr Calc Pharmacy 86.2 ml/min; Est GFR (African American) 103.4 ml/min; Est GFR (Non-African American) 89.2 ml/min; Potassium 3.7 mmol/L (3.5-5.1)
[2024-01-04] MEDS: BACLOFEN 10 MG TAB PO PRN (07:45)
--- NOTE | 2024-01-04 13:57 | Hospitalist Progress Note ---
Date of Service January 04, 2024 Assessment & Plan (1) Acute pain of left shoulder: (2) Essential hypertension: (3) Hyperlipidemia: (4) Depression: (5) Anxiety: (6) Morbid obesity with BMI of 40.0-44.9, adult: Plan 68-year-old female with past medical history significant for hyperlipidemia, history of hyperkalemia, history of mild COPD, history of pulmonary hypertension, hypertension, aneurysm of ascending aorta, history of CAD, atherosclerosis of abdominal aorta, chronic gastritis, CKD stage III, degenerative disc disease, history of compression fracture of spine, lumbar spine pain, thoracic spine pain, depression, PTSD, comes with left shoulder pain. Patient recently in the hospital for back pain and requesting placement. She also seen by orthopedics for acute pain of left shoulder. Seems she has severe glenohumeral osteoarthritis. Ortho discussed about steroid shot versus shoulder arthroplasty. Patient supposed to follow-up with orthopedics as outpatient. Patient states she ambulates with walker. Today while she was ambulating in her house she felt like falling down and she used the left hand to hold to avoid falling when she pulled her left shoulder and since then having severe pain. Acute left shoulder pain Severe glenohumeral osteoarthritis Pain control with, lidocaine patch, p.o. and IV pain medications as needed Orthopedics planning on Outpatient eval on 01/04 for possible replacement vs Reverse TSA Ortho recommends oxy IR 10mg q4hr as needed for severe pain Pt remains tearful and fearful to return home OT recommends rehab; await PT eval Pt likely to go to rehab and I discussed this with CM Discussed with Lalito Thomas of [facility] informed him pt will not be able to make tomorrow appt and our team will reach out when we have definitive dispo plans Mild COPD Continue home inhalers no acute exacerbation Hypertension On amlodipine, hydrochlorothiazide and torsemide BP improving Ascending aortic aneurysm stable, noted on admitting CT 4.0cm Prediabetes HbA1c was 5.7 last admission Depression and anxiety On bupropion, duloxetine and trazodone Hydroxyzine as needed Hyperlipidemia On statin Obesity, BMI 40.2 Needs counseling Nutrition follow-up DVT prophylaxis Lovenox Disposition Medical floor, likely to need rehab but awaiting formal PT recs, discussed with CM. she is medically stable for discharge when rehab can be arranged. She is not willing to d/c to home today as she feels unsafe Full code Pt was seen and examined in collaboration with Dr. Ludwig, please see addendum A total of 44 minutes was spent coordinating, documenting, and providing care for this patient excluding time spent in the performance of separately billed services. This included personally viewing all current laboratories and imaging studies, medication reconciliation, outpatient chart review, and discussion with specialists. Admission and Anticipated Discharge Date Admission Date: January 02, 2024 Supervising Physician Co-Signing Physician Notes Patient is seen and examined at bedside. States having left shoulder pain associated with nausea intermittently. Otherwise no complaints. On exam patient is obese, no apparent distress, normocephalic atraumatic, EOMI, normal breath sounds, clear to auscultation, S1-S2, no murmur, no pedal edema, abdomen soft, nontender, normal bowel sounds, alert, awake, oriented, grossly no focal deficits, left shoulder in sling. Patient is currently being managed for left shoulder pain secondary to severe glenohumeral osteoarthritis. Pain control. Qualifies for rehab as per PT OT evaluation. Appreciate orthopedics input. Needs follow-up with orthopedics on discharge. Continue home inhalers for COPD. Currently no signs of exacerbation. I personally interviewed and examined at bedside. Patient's care is coordinated with Morena Veliz PA-C. I have reviewed the advanced practitioner's documentation, and I agree with plan of care. Please refer to the documentation above for details of patient's presentation and for discussion of other issues. I spent a total [id number] coordinating, documenting, and providing care for this patient excluding time spent in the performance of separately billed services. Subjective Patient was seen and examined in room 352-1. F/U L shoulder pain. She is very tearful and states she is not able to go home like this. She states she lives alone. She has a few steps to enter but is on one floor. She utilizes community transportation. She is fearful to go home and fall. She was just admitted recently and rehab was recommended and she opted to return home. She understands she will not be able to f/u with orthopedics as outpatient until she is discharged. Review of Systems Review of Systems: All systems reviewed & are unremarkable except as noted in HPI & below Physical Exam Physical Exam: Gen: WD/WN, NAD, A&O x3, sitting at edge of bed, tearful and anxious HEENT: Normocephalic, atraumatic, conjunctivae moist, sclerae anicteric, mucous membranes moist. Lung: Clear to Auscultation bilaterally, no wheezes/rales/rhonchi Heart: Regular rate, regular rhythm, no murmurs, rubs, or gallops Abdomen: Soft, NT, ND +BS x 4 Extremities: LUE sling, NVI distally, no erythema, edema Skin: Warm, no rash, negative turgor. Results & Data Results & Data Vital Signs (Past 12 Hours) Vital Signs Temp Pulse Resp BP Pulse Ox O2 Del Method 01/04/24 07:23 36.7 C 64 16 115/73 92 Room Air Laboratory Results Short CBC 01/04/24 Range/Units 06:47 WBC 9.62 (4.8-10.8) K/ul Hgb 12.5 (12.0-16.0) g/dl Hct 37.2 (37.0-47.0) % Plt Count 258 (130-400) K/uL BMP 01/04/24 06:47 Sodium 136 Potassium 3.7 Chloride 100 Carbon Dioxide 29 BUN 16 Creatinine 0.68 Glucose 93 Calcium 8.8 Medications Administered Current Inpatient Medications Acetaminophen (Acetaminophen 325 Mg Tab) 650 mg PO Q4H PRN PRN Reason: pain/fever Stop: 02/01/24 22:23 Albuterol (Albuterol 0.083% Nebu Soln 3 Ml Vial) 2.5 mg INH Q4H PRN; Protocol PRN Reason: Shortness Of Breath Or Wheezing Stop: 02/01/24 22:23 Albuterol (Albuterol Hfa 8 Gm Inhaler) 1 puffs INH Q6H PRN PRN Reason: shortness of breath or wheezing Stop: 02/01/24 22:23 Amlodipine Besylate (Amlodipine Besylate 5 Mg Tab) 2.5 mg PO DAILY [facility] Stop: 02/02/24 08:59 Last Admin: 01/04/24 07:46 Dose: 2.5 mg Atorvastatin Calcium (Atorvastatin 20 Mg Tab) 20 mg PO QAM [facility] Stop: 02/02/24 08:59 Last Admin: 01/04/24 07:46 Dose: 20 mg Baclofen (Baclofen 10 Mg Tab) 10 mg PO TID PRN PRN Reason: Muscle Spasm/Pain Stop: 02/01/24 22:23 Last Admin: 01/04/24 07:45 Dose: 10 mg Bupropion HCl (Bupropion Xl 300 Mg Tabcr) 300 mg PO DAILY [facility] Stop: 02/02/24 08:59 Last Admin: 01/04/24 07:47 Dose: 300 mg Duloxetine HCl (Duloxetine Hcl 60 Mg Cap) 120 mg PO QAM [facility] Stop: 02/02/24 08:59 Last Admin: 01/04/24 07:46 Dose: 120 mg Enoxaparin Sodium (Enoxaparin Inj 40 Mg/0.4 Ml Syr) 40 mg SQ BID [facility] Stop: 02/01/24 22:44 Last Admin: 01/04/24 07:47 Dose: 40 mg Hydrochlorothiazide (Hydrochlorothiazide 25 Mg Tab) 12.5 mg PO QAM [facility] Stop: 02/02/24 08:59 Last Admin: 01/04/24 07:47 Dose: 12.5 mg Hydromorphone HCl (Hydromorphone Inj 0.5 Mg/0.5 Ml Syr) 0.5 mg IV Q4H PRN PRN Reason: Severe Pain (Scale 7, 8, 9,10) Stop: 01/16/24 22:23 Last Admin: 01/04/24 09:37 Dose: 0.5 mg Hydroxyzine HCl (Hydroxyzine Hcl 25 Mg Tab) 50 mg PO QID PRN PRN Reason: Anxiety Stop: 02/01/24 22:23 Last Admin: 01/04/24 11:55 Dose: 50 mg Ketoconazole (Ketoconazole 2% Cr 15 Gm Tube) 1 appln EXT BID [facility] Stop: 01/12/24 22:23 Last Admin: 01/04/24 07:47 Dose: 1 appln Lidocaine (Lidocaine 5% 1 Patch) 1 patch TD HS [facility] Stop: 02/02/24 20:59 Last Admin: 01/03/24 20:06 Dose: 1 patch Miscellaneous (Remove Lidoderm Patch) 1 each N/A DAILY [facility] Stop: 02/02/24 06:59 Last Admin: 01/04/24 07:47 Dose: 1 each Ondansetron HCl (Ondansetron Inj 2 Mg/Ml 2 Ml Vial) 4 mg IV Q6H PRN PRN Reason: Nausea And Vomiting Stop: 02/02/24 08:41 Oxycodone HCl (Oxycodone Hcl Ir 5 Mg Tab (Immediate Release)) 10 mg PO Q4H PRN PRN Reason: pain Stop: 01/16/24 22:23 Last Admin: 01/04/24 07:45 Dose: 10 mg Polyethylene Glycol (Polyethylene (Miralax) 17 Gm Pack) 17 gm PO DAILY PRN PRN Reason: Constipation Stop: 02/01/24 22:23 Last Admin: 01/03/24 20:05 Dose: 17 gm Pregabalin (Pregabalin 100 Mg Cap) 100 mg PO TID [facility] Stop: 02/01/24 22:23 Last Admin: 01/04/24 07:45 Dose: 100 mg Torsemide (Torsemide 10 Mg Tab) 5 mg PO DAILY [facility] Stop: 02/02/24 08:59 Last Admin: 01/04/24 07:47 Dose: 5 mg Trazodone HCl (Trazodone Hcl 50 Mg Tab) 150 mg PO HS [facility] Stop: 02/01/24 22:23 Last Admin: 01/03/24 20:05 Dose: 150 mg Umeclidinium/Vilanterol (Umeclidinium/Vilanterol 62.5/25mcg 7 Puffs/Inhaler) 1 puffs INH DAILY [facility] Stop: 02/02/24 08:59 Last Admin: 01/04/24 07:48 Dose: 1 puffs
--- NOTE | 2024-01-04 15:08 | Electrocardiogram Report ---
Test Reason : Blood Pressure : / mmHG Vent. Rate : 064 BPM Atrial Rate : 064 BPM P-R Int : 164 ms QRS Dur : 082 ms QT Int : 412 ms P-R-T Axes : 064 041 051 degrees QTc Int : 425 ms Normal sinus rhythm with sinus arrhythmia Normal ECG When compared with ECG of 15-AUG-2023 09:30, Premature atrial complexes are no longer Present Confirmed by Narciso Gillespie ([id number]) on 01/04/2024 3:07:56 PM Referred By: REFERRED SELF Confirmed By:Narciso Gillespie
--- NOTE | 2024-01-05 11:55 | Hospitalist Progress Note ---
Date of Service January 05, 2024 Assessment & Plan (1) Acute pain of left shoulder: (2) Essential hypertension: (3) Hyperlipidemia: (4) Depression: (5) Anxiety: (6) Morbid obesity with BMI of 40.0-44.9, adult: Plan 68-year-old female with past medical history significant for hyperlipidemia, history of hyperkalemia, history of mild COPD, history of pulmonary hypertension, hypertension, aneurysm of ascending aorta, history of CAD, atherosclerosis of abdominal aorta, chronic gastritis, CKD stage III, degenerative disc disease, history of compression fracture of spine, lumbar spine pain, thoracic spine pain, depression, PTSD, comes with left shoulder pain. Patient recently in the hospital for back pain and requesting placement. She also seen by orthopedics for acute pain of left shoulder. Seems she has severe glenohumeral osteoarthritis. Ortho discussed about steroid shot versus shoulder arthroplasty. Patient supposed to follow-up with orthopedics as outpatient. Patient states she ambulates with walker. Today while she was ambulating in her house she felt like falling down and she used the left hand to hold to avoid falling when she pulled her left shoulder and since then having severe pain. Acute left shoulder pain Severe glenohumeral osteoarthritis Pain control with, lidocaine patch, p.o. and IV pain medications as needed Orthopedics planning on Outpatient eval on 01/04 for possible replacement vs Reverse TSA Pain control Evaluated by PT OT Plan to discharge reviewed facility today Needs follow-up with orthopedics on discharge Mild COPD Continue home inhalers no acute exacerbation Hypertension On amlodipine, hydrochlorothiazide and torsemide BP stable Ascending aortic aneurysm stable, noted on admitting CT 4.0cm Prediabetes HbA1c was 5.7 last admission Depression and anxiety On bupropion, duloxetine and trazodone Hydroxyzine as needed Hyperlipidemia On statin Morbid Obesity BMI 40.2 Needs counseling Nutrition follow-up DVT Px: Lovenox SQ Code Status Full Code Disposition Rehab Admission and Anticipated Discharge Date Admission Date: January 02, 2024 Subjective Patient is seen and examined at bedside Left shoulder pain is controlled No new complaints Denies any chest pain, dyspnea, dizziness, nausea, vomiting, abdominal pain Plan to be discharged to rehab facility today Review of Systems Review of Systems: All systems reviewed & are unremarkable except as noted in Subjective Physical Exam Physical Exam: Physical Exam: Vitals signs as noted above General Appearance:Obese, no apparent distress Head: normocephalic, Atraumatic Eyes: normal inspection, EOMI Neck: supple, Trachea midline Respiratory/Chest: Normal breath sounds, CTA, No accessory muscle use Cardiovascular: S1, S2, No murmur Abdomen/GI:Soft, Non tender, Bowel sounds present Extremities/Musculoskeletal:normal inspection, no edema, Left UE in sling Neurologic/Psych:AAOX3, grossly no focal neurological deficits Skin: normal color, warm Results & Data Results & Data Vital Signs (Past 12 Hours) Vital Signs Temp Pulse Resp BP Pulse Ox O2 Del Method 01/05/24 05:41 36.5 C 60 20 115/71 95 Room Air
--- NOTE | 2024-01-05 12:08 | Discharge Summary ---
Date of Service January 05, 2024 Admission HPI Per Admitting Provider 68-year-old female with past medical history significant for hyperlipidemia, history of hyperkalemia, history of mild COPD, history of pulmonary hypertension, hypertension, aneurysm of ascending aorta, history of CAD, at herosclerosis of abdominal aorta, chronic gastritis, CKD stage III, degenerative disc disease, history of compression fracture of spine, lumbar spine pain, thoracic spine pain, depression, PTSD, comes with left shoulder pain. Patient recently in the hospital for back pain and requesting placement. She also seen by orthopedics for acute pain of left shoulder. Seems she has severe glenohumeral osteoarthritis. Ortho discussed about steroid shot versus shoulder arthroplasty. Patient supposed to follow-up with orthopedics as outpatient. Patient states she ambulates with walker. Today while she was ambulating in her house she felt like falling down and she used the left hand to hold to avoid falling when she pulled her left shoulder and since then having severe pain. In the ER she was given dose of iv steroid,placed on lidocaine patch and pain medications and planned to discharge but patient was having significant pain and and reluctant to be discharged. Denies any headache. Has chronic neck pain. Denies any chest pain or shortness of breath. No fevers. No nausea. No abdominal pain. Normal bowel and bladder movements. Currently resting comfortably and hemodynamically stable. Somewhat tearful. Past medical history. As mentioned above Past surgical history. Cervical fusion surgery. Biopsy of uterus lining. Colonoscopy with biopsy. Dilatation curettage. EGD. Thoracic kyphoplasty. Appendectomy. Repair of inguinal hernia. Vaginal hysterectomy. Social history. Smoked half pack a day for 15 years. Quit in 2022. No alcohol use. No drug use. Family history. Mother had cervical cancer. Dementia. Hypertension. Maternal grandmother had diabetes. Father had COPD. Admission Exam Per Admitting Provider General- Not in distress Head- atraumatic Eyes- PERRL. ENT- oropharynx clear Neck- supple, no JVD. Lungs- clear to auscultation, no wheezing or crackles. Heart- regular rhythm; no murmur, no gallop. Abdomen- normal bowel sounds, soft, nontender, no distension. Extremities- no pretibial edema, no erythema seen.Painful left shoulder movements Neuro- alert, oriented x 3; PERRL, no facial palsy; no dysarthria; moves extremities. Principal Diagnosis Severe glenohumeral osteoarthritis Discharge Data Allergies Allergy/AdvReac Type Severity Reaction Status Date / Time Iodinated Contrast Media Allergy Intermediate facial Verified 01/02/24 15:59 swelling [facility] 08/04/19 Penicillins Allergy Unknown SWELLING Verified 01/02/24 15:59 [facility] Consultations 01/02/24 19:24 ED Decision to Admit Stat 01/03/24 08:00 Consult Orthopedic Surgery Routine Procedures Performed Laboratory Results WBC 9.62 K/ul (4.8-10.8) 01/04/24 06:47 RBC 4.29 M/uL (4.20-5.40) 01/04/24 06:47 Hgb 12.5 g/dl (12.0-16.0) 01/04/24 06:47 POC Hgb 14.3 g/dl (12.0-16.0) 01/02/24 17:15 Hct 37.2 % (37.0-47.0) 01/04/24 06:47 POC Hct 42 % (37-47) 01/02/24 17:15 MCV 86.7 fL (80.0-100.0) 01/04/24 06:47 MCH 29.1 pg (25.0-34.0) 01/04/24 06:47 MCHC 33.6 g/dL (32.0-36.0) 01/04/24 06:47 RDW Std Deviation 47.4 fL (36.4-46.3) H 01/04/24 06:47 RDW Coeff of Jimi 14.9 % (11.5-14.5) H 01/04/24 06:47 Plt Count 258 K/uL (130-400) 01/04/24 06:47 MPV 9.0 fL (9.4-12.4) L 01/04/24 06:47 Immature Gran % (Auto) 0.6 % 01/03/24 05:30 Neut % (Auto) 85.6 % 01/03/24 05:30 Lymph % (Auto) 12.2 % 01/03/24 05:30 [place] % (Auto) 1.5 % 01/03/24 05:30 Eos % (Auto) 0.0 % 01/03/24 05:30 Baso % (Auto) 0.1 % 01/03/24 05:30 Neut # (Auto) 7.29 K/uL (1.40-6.50) H 01/03/24 05:30 Lymph # (Auto) 1.04 K/uL (1.20-3.40) L 01/03/24 05:30 [place] # (Auto) 0.13 K/uL (0.11-0.59) 01/03/24 05:30 Eos # (Auto) 0.00 K/uL (0.00-0.50) 01/03/24 05:30 Baso # (Auto) 0.01 K/uL (0.00-0.20) 01/03/24 05:30 Immature Gran # (Auto) 0.05 K/uL (0.01-0.20) 01/03/24 05:30 POC Sodium 138 mmol/L (135-144) 01/02/24 17:15 Sodium 136 mmol/L (136-145) 01/04/24 06:47 POC Potassium 3.5 mmol/L (3.3-5.0) 01/02/24 17:15 Potassium 3.7 mmol/L (3.5-5.1) 01/04/24 06:47 POC Chloride 99 mmol/L (101-112) L 01/02/24 17:15 Chloride 100 mmol/L (98-107) 01/04/24 06:47 Carbon Dioxide 29 mmol/L (21-32) 01/04/24 06:47 POC Total CO2 29 mmol/L (24-31) 01/02/24 17:15 Anion Gap 7 (3-11) 01/04/24 06:47 POC Anion Gap 15.0 mmol/L (16-25) L 01/02/24 17:15 POC BUN 12 mg/dl (7-18) 01/02/24 17:15 BUN 16 mg/dl (6-23) 01/04/24 06:47 Creatinine 0.68 mg/dl (0.6-1.2) 01/04/24 06:47 POC Creatinine 0.5 mg/dl (0.6-1.3) L 01/02/24 17:15 Est Cr Clr Drug Dosing 86.2 ml/min 01/04/24 06:47 Est GFR ( Amer) 103.4 ml/min 01/04/24 06:47 Est GFR (Non-Af Amer) 89.2 ml/min 01/04/24 06:47 BUN/Creatinine Ratio 23.5 (10-20) H 01/04/24 06:47 Glucose 93 mg/dl (70-99(Fasting)) 01/04/24 06:47 POC Glucose 124 mg/dl (70-99) H 01/03/24 07:48 POC Glucose (other) 132 mg/dl (70-99) H 01/02/24 17:15 Calcium 8.8 mg/dl (8.6-10.3) 01/04/24 06:47 POC Ioniz Calcium Fabio 1.10 mmol/l (1.12-1.32) L 01/02/24 17:15 Magnesium 2.0 mg/dl (1.7-2.4) 01/03/24 05:30 Troponin I High Sens 6.3 pg/ml (0-14) 01/02/24 12:[address] 01/02/24 16:38 CT chest diagnostic wo con CLINICAL HISTORY: Aneursym, worsening back pain TECHNIQUE: Multidetector row helical CT of the chest was performed. Coronal and sagittal reformations were obtained. Automated dose lowering techniques and/or adjustment according to patient size were utilized for this exam. CT DOSE: 1177.99 mGy.cm Comparison: Comparison is made to CT chest 08/15/2023 FINDINGS: Lungs and pleura: Atelectasis versus scarring is seen in the dependent portions of the lungs. Heart and pericardium: Cardiomegaly is seen with biatrial enlargement. Vessels: Ascending aorta measures 40 mm in diameter. Severe atherosclerotic changes in the aorta and coronary arteries. No evidence of intramural hematoma. Mediastinum and rich: Unremarkable. Chest wall and lower neck: Unremarkable. Abdomen: Unremarkable. Bones: Degenerative changes in the thoracic spine. Compression deformity is seen with cemented arthroplasties at T12 and L1, unchanged from prior exam. Posterior fixation hardware in T7-T8 and ACDF are again noted. Old healed left rib fractures are seen. IMPRESSION: Stable minimal ascending aortic aneurysm. Within the limits of a noncontrast exam, no evidence of acute aortic injury. No other acute abnormalities are seen to explain chest pain. ACT 112: Negative or not required by law. Electronically signed by: René Meneses M.D. 01/02/2024 6:59 PM Ordered Studies 01/02/24 16:38 CT chest diagnostic wo con Stat Hospital Course (1) Acute pain of left shoulder: (2) Essential hypertension: (3) Hyperlipidemia: (4) Depression: (5) Anxiety: (6) Morbid obesity with BMI of 40.0-44.9, adult: Plan 68-year-old female with past medical history significant for hyperlipidemia, history of hyperkalemia, history of mild COPD, history of pulmonary hy pertension, hypertension, aneurysm of ascending aorta, history of CAD, atherosclerosis of abdominal aorta, chronic gastritis, CKD stage III, degenerative disc disease, history of compression fracture of spine, lumbar spine pain, thoracic spine pain, depression, PTSD, comes with left shoulder pain. Patient recently in the hospital for back pain and requesting placement. She also seen by orthopedics for acute pain of left shoulder. Seems she has severe glenohumeral osteoarthritis. Ortho discussed about steroid shot versus shoulder arthroplasty. Patient supposed to follow-up with orthopedics as outpatient. Patient states she ambulates with walker. Today while she was ambulating in her house she felt like falling down and she used the left hand to hold to avoid falling when she pulled her left shoulder and since then having severe pain. Acute left shoulder pain Severe glenohumeral osteoarthritis Pain control with, lidocaine patch, p.o. and IV pain medications as needed Orthopedics planning on Outpatient eval on 01/04 for possible replacement vs Reverse TSA Pain control Evaluated by PT OT Plan to discharge reviewed facility today Needs follow-up with orthopedics on discharge Mild COPD Continue home inhalers no acute exacerbation Hypertension On amlodipine, hydrochlorothiazide and torsemide BP stable Ascending aortic aneurysm stable, noted on admitting CT 4.0cm Prediabetes HbA1c was 5.7 last admission Depression and anxiety On bupropion, duloxetine and trazodone Hydroxyzine as needed Hyperlipidemia On statin Morbid Obesity BMI 40.2 Needs counseling Nutrition follow-up DVT Px: Lovenox SQ Code Status Full Code Disposition Rehab Total Time Total Time Spent Total Time Spent (In Minutes): 56 minutes Discharge Plan Discharge Items Patient Disposition: Transfer Inpatient Rehab Fac Reason For Visit: SEVERE LEFT SHOULDER PAIN Discharge Diagnosis: Severe glenohumeral osteoarthritis Activity: Per Instructions section Exercise/Sports: Gradually increase as tolerated Non-emergency contact: Primary Care Provider and Surgeon Call non-emergency contact if: you have any medication questions, your symptoms worsen, your pain is concerning for you and you have a fever Follow-up/Referrals: Herbert Kahn MD [Physician] - 01/12/24 3:30 pm Zion Guzman MD [Primary Care Provider] - ( ) Diet: Heart Healthy [facility] Attending Provider Instructions: Follow-up with your primary care physician Dr. Guzman on 01/10/2024 11:00 AM Follow-up with your orthopedic surgeon Dr. Kahn as recommended Seek immediate medical attention if your symptoms reoccur or worsen Please take all medications as instructed on discharge list below. Please call if you have any questions or problems. You can reach a [facility] hospitalist on duty at [facility] 24 hours a day by calling [phone] [employer] Provider Instructions: Cleared from Orthopedic standpoint for discharge. Patient is scheduled to meet with Dr. Kahn in our clinic on January 04 at 1:30 PM for an evaluation of her glenohumeral arthritis and possible discussion of total shoulder arthroplasty versus reverse total shoulder. Pending Studies at Discharge: No Stand-Alone Forms: My [facility] Skilled Items Patient informed of condition?: Yes DNR: No Discharge Level of Care: Acute rehab Communicable Disease: No Discharge Prognosis: Stable Lines: None Urinary Catheter: No Medications and DC Order Prescriptions: New oxycodone 10 mg tablet 10 mg PO TID PRN (Reason: pain) 3 Days Qty: 10 0RF lidocaine 5 % Adhesive Patch,Medicated 1 patch transdermal HS Qty: 0 0RF Continued baclofen 10 mg Tablet 10 mg PO TID PRN (Reason: Muscle Spasm/Pain) atorvastatin 20 mg tablet 20 mg PO QAM acetaminophen [Tylenol Extra Strength] 500 mg Tablet 500 mg PO Q6 PRN (Reason: Pain) Rx Instructions: Unable to verify OTC meds at this date/time. polyethylene glycol 3350 [Miralax] 17 gram powder in packet 17 g PO QAM PRN (Reason: Constipation) hydroxyzine HCl 50 mg tablet 50 mg PO QID PRN (Reason: Anxiety) Rx Instructions: morning,noon,evening and bedtime trazodone 150 mg tablet 150 mg PO HS pregabalin 100 mg capsule 100 mg PO TID Rx Instructions: take in morning,noon and bedtime ondansetron 4 mg tablet,disintegrating 4 mg PO Q8 PRN (Reason: Nausea) Rx Instructions: allow to dissolve on tongue albuterol sulfate 90 mcg/actuation HFA aerosol inhaler 1 inh inhalation Q6H PRN (Reason: shortness of breath or wheezing) Qty: 8.5 0RF amlodipine 2.5 mg tablet 2.5 mg PO DAILY torsemide 5 mg tablet 5 mg PO DAILY nystatin 100,000 unit/gram powder 1 applic TOPICAL TID ketoconazole 2 % cream 1 applic TOPICAL BID bupropion HCl 300 mg tablet extended release 24 hr 300 mg PO DAILY hydrochlorothiazide 12.5 mg tablet 12.5 mg PO QAM Anoro Ellipta 62.5-25 mcg/actuation blister with device 1 inh inhalation DAILY duloxetine 60 mg capsule,delayed release(DR/EC) 120 mg PO QAM albuterol sulfate 2.5 mg /3 mL (0.083 %) solution for nebulization 2.5 mg inhalation Q4H PRN (Reason: Shortness Of Breath Or Wheezing) Discontinued oxycodone 5 mg Tablet 5 mg PO Q4H PRN (Reason: pain) Qty: 14 0RF Discharge Orders: Discharge Order (Routine); Ordered 01/05/24 Ordered By: Teja Ludwig Admission Data Admit Date/Time: 01/02/24 20:17 Attending Provider: Teja Ludwig Admit Provider: Sam Pierson Primary Care Provider: Zion Guzman Other Providers: Sam Pierson; Akil Gray; [place]; Melvina Hoffman [facility]
== END 2024-01-05 14:58 | DRG 554 ==
LOC: ED 11:49 → 3W 20:17 → SUATTDRO 20:17 → 3W 22:02

== ENCOUNTER 2024-11-20 15:02 | Observation (INO) ==
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
[2024-11-20] MEDS: oxyCODONE HCL IR 5 MG TAB (IMMEDIATE RELEASE) PO STA (16:03)
--- NOTE | 2024-11-20 16:23 | XRay Report ---
INDICATION: Left shoulder pain. TECHNIQUE: 3 views of the left shoulder. COMPARISON: Radiograph from 12/27/2023. FINDINGS: No acute fracture or dislocation. No lytic or blastic bony lesions seen. Severe glenohumeral joint space loss, worsened from prior. Mild to moderate acromioclavicular joint space loss similar to prior. Soft tissues appear unremarkable. IMPRESSION: No acute osseous abnormality evident. Severe glenohumeral joint space loss, worsened from prior. Mild to moderate acromioclavicular joint space loss similar to prior. Electronically signed by Dino Chiu 11-20-2024 4:22 PM
[2024-11-20] MEDS: MoRPHine SULFATE 4 MG/ML 1 ML CARP\\VIAL IV STA (18:15)
[2024-11-20] MEDS: ONDANSETRON INJ 2 MG/ML 2 ML VIAL IV STA (18:15)
[2024-11-20 18:58] LABS: Albumin Globulin Ratio 1.6 (0.9-2); Albumin Level 4.6 gm/dl (3.4-5.0); BUN Creatinine Ratio 16.9 (10-20); Bilirubin,Total 0.4 mg/dl (0.2-1.0); Calcium 9.5 mg/dl (8.6-10.3); Creatinine Clr Calc Pharmacy 91.2 ml/min; Globulin 2.9 gm/dl (2.5-4.0); Potassium 3.8 mmol/L (3.5-5.1); Total Protein 7.5 gm/dl (6.0-8.3)
[2024-11-20 19:07] LABS: Basophils # (auto) 0.05 K/uL (0.00-0.20); Basophils % (auto) 0.6 %; Eosinophils # (auto) 0.42 K/uL (0.00-0.50); Eosinophils % (auto) 5.3 %; Hematocrit (blood only) 44.8 % (37.0-47.0); Hemoglobin 15.4 g/dl (12.0-16.0); Immature Granulocytes # (auto) 0.02 K/uL (0.01-0.20); Immature Granulocytes % (auto) 0.3 %; Lymphocytes # (auto) 2.41 K/uL (1.20-3.40); Lymphocytes % (auto) 30.4 %; Mean Corpuscular Hemoglobin 29.3 pg (25.0-34.0); Mean Corpuscular Hgb Conc 34.4 g/dL (32.0-36.0); Mean Corpuscular Volume 85.3 fL (80.0-100.0); Mean Platelet Volume 9.3 fL (9.4-12.4); Monocytes # (auto) 0.71 K/uL (0.11-0.59); Neutrophils # (auto) 4.31 K/uL (1.40-6.50); Neutrophils % (auto) 54.4 %; Platelet Count 238 K/uL (130-400); RDW Coefficient of Variation 13.4 % (11.5-14.5); RDW Standard Deviation 42.3 fL (36.4-46.3); Red Blood Count 5.25 M/uL (4.20-5.40); White Blood Count 7.92 K/ul (4.8-10.8)
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
[2024-11-20] MEDS ORDERED: ALBUTEROL 0.083% NEBU SOLN 3 ML VIAL INH PRN (20:27)
[2024-11-20] MEDS ORDERED: POLYETHYLENE (MIRALAX) 17 GM PACK PO PRN (20:27)
[2024-11-20] MEDS ORDERED: ALUMINUM/MAGNESIUM SUSP 30 ML UDC PO PRN (20:27)
[2024-11-20] MEDS: ACETAMINOPHEN 500 MG TAB PO SCH (20:47)
[2024-11-20] MEDS: hydrOXYzine HCl 25 MG TAB PO STA (21:00)
[2024-11-20] MEDS: oxyCODONE HCL IR 5 MG TAB (IMMEDIATE RELEASE) PO PRN (21:00)
[2024-11-20] MEDS: traZODone HCL 50 MG TAB PO SCH (21:50)
[2024-11-20] MEDS: PREGABALIN 100 MG CAP PO SCH (21:50)
[2024-11-20] MEDS: CELECOXIB 100 MG CAP PO SCH (21:50)
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
--- OUTSIDE RECORDS SUMMARY | 2024-11-20 23:51 | External Medical Summary | Summary of Care ---
Author Name Unknown Organization [facility] Address [address] [place] [address] Phone [phone] Care Team Providers Care Steaming Cabinet Tender Name Role Phone Thomas LEIVA MD, Zion Mireles Primary Care Provider Reason for Visit * Reason Onset Date Comments Medication Pre-auth 10/17/2024 Wegovy 0.5mg /0.5ml Encounter Details Date Type Department Care Team (Late st Contact Info) Description 10/17/2024 Telephone Family Practice [facility] [address] [facility] [place] [address] Zion Guzman III, MD [address] [place] [address] Medication Pre-auth (Wegovy 0.5mg/0.5ml) Allergies Active Allergy Reactions Criticality Noted Date Comments Iodinated Contrast Media High 01/02/2024 Other Reaction(s): facial swelling [facility] 08/04/19 Other Allergy (See Comments) 09/07/[address] Contrast Penicillins Anaphylaxis High 09/10/1999 documented as of this encounter (statuses as of 10/26/2024) Medications Acetaminophen 500 MG Oral Tablet Take 1 Tablet by mouth every 6 hours as needed for Pain. Active Albuterol Sulfate (2.5 MG/3ML) 0.083% Inhalation Nebulization Solution (Proventil)Indicat ions:COPD exacerbation (HCC),Bronchitis, complicated Inhale 1 Vial via nebulizer every 4 hours as needed for Wheezing. 360 mL 09/02/20 23 Active Ondansetron 4 MG Oral Tablet Disintegrating (Zofran)Indication s:Nausea Place 1 Tablet on tongue and dissolve every 8 hours as needed for Nausea. 300 Tablet 09/08/2023 7:30 AM EST 09/06/20 23 Active Proventil HFA 108 (90 Base) MCG/ACT Inhalation Aerosol Solution Inhale 2 Puffs by mouth four times daily; in the morning, at noon, in the evening and before bedtime. 54 g 09/08/2023 7:30 AM EST 09/06/20 23 Active Torsemide 5 MG Oral Tablet (Demadex)Indicatio ns:HTN, goal below 140/90 Take 1 Tablet by mouth in the morning. 90 Tablet 11/08/2023 10:49 AM EST 11/07/19 24 Active hydroCHLOROthiazid e 12.5 MG Oral Tablet (Hydrodiuril) Take 1 Tablet by mouth in the morning. 90 Tablet 3 08/20/2024 7:45 AM EST 11/28/19 24 Active traZODone HCl 150 MG Oral Tablet (Desyrel) take 1 tablet by mouth at bedtime-daily 90 Tablet 02/17/2024 4:15 PM EDT 02/15/20 24 Active amLODIPine Besylate 2.5 MG Oral Tablet (Norvasc)Indicatio ns:HTN, goal below 140/90 Take 1 Tablet by mouth in the morning. 90 Tablet 3 08/16/2024 1:22 PM EST 02/23/20 24 Active Nystatin 364010 UNIT/GM External Powder (Nystop) Apply 1 Dose topically to affected area in the morning and 1 Dose at noon and 1 Dose before bedtime. 180 g 1 05/02/2024 4:27 PM EDT 05/01/20 24 Active Triamcinolone Acetonide 0.1 % External Cream (Aristocort) Apply topically to affected area 2 times a day. 80 g 5 09/18/2024 11:16 AM EST 05/01/20 24 Active Pregabalin 200 MG Oral Capsule (Lyrica) Take 1 Capsule by mouth in the morning and 1 Capsule before bedtime. 180 Capsule 5 10/12/2024 9:23 AM EST 05/02/20 24 Active traZODone HCl 150 MG Oral Tablet (Desyrel) Take 1 tablet by mouth every night at bedtime 90 Tablet 05/16/2024 1:55 PM EDT 05/15/20 24 Active buPROPion HCl ER (XL) 300 MG Oral Tablet Extended Release 24 Hour (Wellbutrin XL) Take 1 Tablet by mouth in the morning. 90 Tablet 2 09/17/2024 3:21 PM EST 06/17/20 24 Active Atorvastatin Calcium 20 MG Oral Tablet (Lipitor) TAKE ONE TABLET BY MOUTH IN THE MORNING 90 Tablet 3 09/20/2024 9:20 AM EST 06/27/20 24 Active buPROPion HCl ER (XL) 150 MG Oral Tablet Extended Release 24 Hour (Wellbutrin XL) Take 1 Tablet by mouth in the morning. in addition to the 300mg tablet. 90 Tablet 2 09/20/2024 9:20 AM EST 06/27/20 24 Active Wegovy 0.5 MG/0.5ML Subcutaneous Solution Auto-injector (picsellideSpecialists On Call) Inject 0.5 mg under the skin once a week. 2 mL 11 09/24/2024 7:36 AM EST 07/05/20 24 Active busPIRone HCl 10 MG Oral Tablet (Buspar) Take 1 Tablet by mouth in the morning and 1 Tablet at noon and 1 Tablet before bedtime. 270 Tablet 08/02/2024 6:19 PM EDT 08/01/20 24 Active DULoxetine HCl 60 MG Oral Capsule Delayed Release Particles (Cymbalta) Take 2 Capsules by mouth in the morning. 180 Capsule 1 08/03/2024 11:26 AM EDT 08/01/20 24 Active Anoro Ellipta 62.5-25 MCG/ACT Inhalation Aerosol Powder Breath Activated (umeclidinium-denice nterol) Inhale 1 Puff by mouth in the morning. 180 Each 3 09/18/2024 11:16 AM EST 09/18/20 24 Active Baclofen 10 MG Oral Tablet (Lioresal) TAKE 1 TABLET BY MOUTH THREE TIMES A DAY NEEDED FOR MUSCLE SPASM 90 Tablet 3 07/26/2024 7:54 AM EDT 07/24/20 24 025 Discontin ued(Refil l) traZODone HCl 150 MG Oral Tablet (Desyrel) Take 1 Tablet by mouth at bedtime. 90 Tablet 08/16/2024 10:49 AM EST 08/15/20 025 Discontin ued(Refil l) hydrOXYzine HCl 25 MG Oral Tablet Take 1 tablet by mouth three times daily as needed for anxiety 270 Tablet 09/06/2024 7:35 AM EST 09/04/20 025 Discontin ued(Exter nal Source Cancellat ion) documented as of this encounter (statuses as of 10/26/2024) Active Problems Problem Noted Date Diagnosed Date [...] as of this encounter (statuses as of 10/26/2024) Resolved Problems Problem Noted Date Diagnosed Date [...] as of this encounter (statuses as of 10/26/2024) Immunizations Name Administration Dates Next Due COVID-19 [...] Influenza, Quadriva lent Hd (Fluzone Hd) 07/06/2023,10/12/2022 TD - Tetanus/Diptheria (ADULT) 03/01/1996 TD, Preservative Free 11/16/2017 TDAP, Age 6 [...] ages 0-17 years) Not on file 09/14/2024 Comments No Sex and Gender Information [...] encounter Miscellaneous Notes * Telephone Encounter - Christoph Steel CPhT - 10/26/2024 8:55 AM EST Checked status of prior authorization for WEGOVY 0.5 MG/0.5 ML PEN through PromptPA. Awaiting response from insurance. Supervisor [employer] will review again. Reminder: Pharmacist requests prior auth be sent back if no response by 10/29. Thank you, Theron Steel ([facility]) Electric Sign Assembler III [facility] ([facility]) 10/26/2024, 8:56 AM * Telephone Encounter - Hayley Devine CPhT - 10/25/2024 8:54 AM EST Check Status EOC was aborted and recreated as an appeal. New EOC is [id number]. Per [facility] Chat set to finalize on 10/29. Checked status of prior authorization for Wegovy 0.5mg/0.5 through PromptPA. Awaiting response frominsurance. Supervisor [employer] will review again. Reminder: Pharmacist requests prior auth be sent back if no response by 10/29. Thank you, Hayley Devine Bus Driver [facility] 10/25/2024,8:54 AM * Telephone Encounter - Sunshine Lorenzo supervisor type bar and segment - 10/23/2024 1:37 PM EST Pt calling to check on status of PA for wegovy. Informed pt that we are waiting on a response from insurance. Caller verbalized understanding. States she is out of medication. Caller can be reached at [phone]. Thank you, Susnhine Lorenzo Bus Driver [facility] ([facility]) 10/23/2024,1:37 PM * Telephone Encounter - An Manley supervisor type bar and segment - 10/23/2024 8:45 AM EST Submitted information in previous note via PromptPA (EOC: [id number]).. Awaiting payer response. We will follow-up with insurance starting 10/25. Per [facility] request, if no decision is received from insurance by 10/25, we will route back to the [facility] after clarifying with the pharmacy that the claim is still not processing. Thanks, An Manley Electric Sign Assembler III [facility] ([facility]) 10/23/2024,8:45 AM * Telephone Encounter - Lisa Zhu [facility] - 10/22/2024 12:23 PM EST Will attempt to resubmit with addended OV note. Please submit PA. Include the following documentation: 07/05/2024 OV 03/14/2024 OV nutrition and weight Please copy and paste the following information into PA form: Pt prescribed to reduce the risk of major adverse cardiovascular events (cardiovascular , non-fatal myocardial infarction, or non-fatal stroke). BMI is 37 kg/m2 Associated Diagnoses Atherosclerosis of [place] coronary artery of [place] heart without angina pectoris [I25.10] Arteriosclerosis of abdominal aorta (HCC) [I70.0] Continuation of therapy/approval Pt on statin and HTN meds What other drugs is there medical record documentation of therapeutic failure on, intolerance to, or contraindication to for this condition? N/a Joey as urgent: No Diagnosis/ICD-10 Code(s): Associated Diagnoses Atherosclerosis of [place] coronary artery of [place] heart without angina pectoris [I25.10] Arteriosclerosis of abdominal aorta (HCC) [I70.0] If instantaneous decision is not received after submitting prior auth, please continue to follow upon this and route back to the [facility] pool if no decision is made by the insurance by 10/25, after clarifying with the pharmacy that the claim is still not processing. If PA is denied, please also route back to [facility] pool. Thank you, Lisa Zhu PharmD Clinical Pharmacist [facility] ([facility]) 10/22/24 12:23 PM [phone] * Telephone Encounter - Daniela Xavier MD - 10/22/2024 12:03 PM EST There is an addendum on that visit that states the following: Lashawn Ragland continues to benefit from Wegovy to reduce the risk of major adverse cardiovascular events (cardiovascular , non-fatal myocardial infarction, or non-fatal stroke). * Telephone Encounter - Christoph Steel CPhT - 10/22/2024 8:28 AM EST [facility] denied prior auth before information below could be submitted Denial rationale: "Do not see prescriber attestation stating that the member continues to benefit from Wegovy to reduce the risk of major adverse cardiovascular events (cardiovascular , nonfatalmyocardial infarction, or non-fatal stroke)" Please review and add additional information to that below for resubmission if appropriate Thank you, Theron Steel ([facility]) Electric Sign Assembler III [facility] ([facility]) 10/22/2024, 8:28 AM * Telephone Encounter - Ember Barrientos isacc - 10/19/2024 4:07 PM EST Please submit PA. Include the following documentation: 07/05/2024 OV with provider 03/14/2024 OV nutrition and weight Please copy and paste the following information into PA form: Pt prescribed to reduce the risk of major adverse cardiovascular events (cardiovascular , non-fatal myocardial infarction, or non-fatal stroke). BMI is 37 kg/m2 Associated Diagnoses Atherosclerosis of [place] coronary artery of [place] heart without angina pectoris [I25.10] Arteriosclerosis of abdominal aorta (HCC) [I70.0] Continuation of therapy/approval Pt on statin and HTN meds What other drugs is there medical record documentation of therapeutic failure on, intolerance to, or contraindication to for this condition? N/a Joey as urgent: No Diagnosis/ICD-10 Code(s): Associated Diagnoses Atherosclerosis of [place] coronary artery of [place] heart without angina pectoris [I25.10] Arteriosclerosis of abdominal aorta (HCC) [I70.0] If instantaneous decision is not received after submitting prior auth, please continue to follow upon this and route back to the [facility] pool if no decision is made by the insurance by 10/25, after clarifying with the pharmacy that the claim is still not processing. If PA is denied, please also route back to [facility] pool. Thank you, Ember Barrientos PharmD Clinical Pharmacist [facility] ([facility]) [phone] 10/19/2024, 4:07 PM * Telephone Encounter - Daniela Xavier MD - 10/19/2024 3:46 PM EST 07/05/24 OV addended * Telephone Encounter - Susy Figueroa [facility] - 10/19/2024 11:09 AM EST Wejanae prior authorization is in progress Patient insurance is requesting: " prescriber attestation stating that the member continues to benefit from Wegovy to reduce the risk of major adverse cardiovascular events (cardiovascular , non-fatal myocardial infarction, or non-fatal stroke. " Please addend this message thread or 07/05/24 OV [place] [phone] so that additional information can be submitted Thank you, Susy Figueroa PharmD Clinical Pharmacist [facility] ([facility]) 10/19/24 11:16 AM [phone] * Telephone Encounter - Christoph Steel CPhT - 10/19/2024 10:47 AM EST Patients insurance would like to inform the office that Wegovy 0.5 MG/0.5ML is requiring additionalinformation: prescriber attestation stating that the member continues to benefit from Wegovy to reduce the risk of major adverse cardiovascular events (cardiovascular , non-fatal myocardial infarction, or non-fatal stroke). Prior authorization entered in PromptPA at [facility]. EOC# [id number] Please send to [facility] before 12PM 10/10/24. Thank you, Theron Steel ([facility]) Electric Sign Assembler III [facility] ([facility]) 10/19/2024, 10:47 AM * Telephone Encounter - Hayley Devine CPhT - 10/18/2024 12:35 PM EST Submitted information in previous note via PromptPA (EOC: [id number]).. Awaiting payer response. We will follow-up with insurance starting 10/22. Per [facility] request, if no decision is received from insurance by 10/24, we will route back to the [facility] after clarifying with the pharmacy that the claim is still not processing. Thank you, Hayley Devine Bus Driver [facility] 10/18/2024,12:35 PM * Telephone Encounter - Yoon Calderón [facility] - 10/17/2024 12:43 PM EST Please submit PA. Include the following documentation: OV 07/05/24 OV 03/14/24 Please copy and paste the following information into PA form: Continuation of therapy Starting BMI 39.74 weight 221lb Most recent BMI 36.96 weight 206lb What other drugs is there medical record documentation of therapeutic failure on, intolerance to, or contraindication to for this condition? Joey as urgent: No Diagnosis/ICD-10 Code(s): I25.10; I70.0 If instantaneous decision is not received after submitting prior auth, please continue to follow upon this and route back to the [facility] pool if no decision is made by the insurance by 10/24, after clarifying with the pharmacy that the claim is still not processing. If PA is denied, please also route back to [facility]. Thank you, Yoon Calderón PharmD, PILI Clinical Pharmacist [facility] ([facility]) 10/17/24 12:43 PM [phone] * Telephone Encounter - Yoon Calderón [facility] - 10/17/2024 12:28 PM EST Images from the original note were not included. This is a new PA request. Upon review of this prior authorization request, I verified this request is appropriate. This is prescribed by a department for which [facility] is authorized to review prior authorizations This is not a duplicate encounter regarding the same prior authorization The patient is planning to use insurance The insurance information listed in previous note is correct and the plan that is requiring prior authorization The insurance does not cover either brand or generic forms of this script as written without prior authorization The insurance does not cover any NDCs of this script without prior authorization RX Estimate tool confirms this script needs prior authorization Of note, there is nothing currently pending in [facility] for this request. Please advise how to proceed. Thank you, Yoon Calderón PharmD, PILI Clinical Pharmacist [facility] Services ([facility]) 10/17/24 12:28 PM [phone] * Telephone Encounter - Yina Mendoza CPhT - 10/17/2024 10:50 AM EST Pharmacy calling to inform doctor that the patient's insurance will not pay for this medication without a completed prior authorization. Did confirm this information with the pharmacy. Pt's current insurance information is as follows: Patient name: Lashawn Ragland ID number: [id number] BIN number: [id number] PCN number: [id number] Group number: [id number] Subscriber name: Lashawn Ragland Primary or Secondary Insurance:Primary Medication: wegovy 0.5mg/0.5ml Reason for Request: SILVIA [facility] Pharmacy and phone number: [facility] [phone] Rx plan and phone number: [facility] [phone] Is this a new medication for the patient? No. How did the patient obtain the medication on the lastfill? It was covered last time on this same insurance. What alternative medications does the pharmacy have in stock?: Thank you, Yina Mendoza CPhT Electric Sign Assembler [facility] ([facility]) 10/17/2024, 10:51 AM documented in this encounter Plan of Treatment Upcoming Encounters Date Type Department Care Team (Late st Contact Info) Description 12/11/2024 1:00 PM EDT Imaging Radiology [facility] [address] [place] [id number] 01/03/2025 1:00 PM EDT Office Visit Family Practice [facility] [address] [facility] [place] [address] Daniela Xavier MD [address] [facility] [place] [address] 03/08/2025 3:00 PM EDT Office Visit Nephrology, [facility] [address] [facility] [place] [address] Zahira [place] MD [address] [facility] [place] [address] 05/30/2025 10:30 AM EDT Home Visit Care at Home [address] [place] [address] Amber Goldman PA-C [address] [place] [address] Scheduled Procedures Name Priority Associated Diagnoses Date/Ti me COLONOSCOPY FLEXIBLE PROXIMAL DIAGNOSTIC Recall History of colon polyps Health Maintenance Due Date Last Done Comments Alpha-1 Antitrypsin 1972 Cologuard 1999 Fecal Occult Blood Test 1999 Sigmoidoscopy 1999 DXA Scan 12/15/2019 12/14/2017 *BISPHONATE OR OTHER ACCEPTABLE MEDICATION NEEDED FOR OSTEOPOROSIS (REFER TO SMARTSET #1146) 10/15/2022 COVID-19 Vaccine (2023- season) 2024 03/14/2021, 02/08/2021 Colonoscopy 06/26/2024 06/26/2019, [...] D LEVEL ONCE IN A LIFETIME-USE SMARTSET# [id number] Completed 02/07/2023, 12/07/2017, 05/03/2013, Additional history exists [...] Relationship Healthcare Agent Relationship Communication Timothy "Garfield" Minervagajaqueline [facility] C are Induction Heating Equipment Setter (appointed verbally by patient or by statute hierarchy) Care Teams Steaming Cabinet Tender Relationship Specialty Start Date End Date Zion Guzman III, MD [address] [place] [address] PCP - General 05/17/1996 documented as of this encounter
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
--- OUTSIDE RECORDS SUMMARY | 2024-11-20 23:51 | External Medical Summary | Summary of Care ---
Author Name Unknown Organization [facility] Address [address] [place] [address] Phone [phone] Care Team Providers Care Boiler Setter Name Role Phone Thomas LEIVA MD, Zion Mireles Primary Care Provider Reason for Visit * Reason Onset Date Comments Medication Pre-auth 10/17/2024 Wegovy 0.5mg /0.5ml Encounter Details Date Type Department Care Team (Late st Contact Info) Description 10/17/2024 Telephone Family Practice [facility] [address] [facility] [place] [address] Zion Guzman III, MD [address] [place] [address] Medication Pre-auth (Wegovy 0.5mg/0.5ml) Allergies Active Allergy Reactions Criticality Noted Date Comments Iodinated Contrast Media High 01/02/2024 Other Reaction(s): facial swelling [facility] 08/04/19 Other Allergy (See Comments) 09/07/[address] Contrast Penicillins Anaphylaxis High 09/10/1999 documented as of this encounter (statuses as of 10/25/2024) Medications Acetaminophen 500 MG Oral Tablet Take [...] 1:22 PM EST 02/23/20 24 Active Nystatin 186935 UNIT/GM External Powder (Nystop) Apply 1 Dose [...] Active Wegovy 0.5 MG/0.5ML Subcutaneous Solution Auto-injector ([employer] Inject 0.5 mg under the skin once [...] 08/03/2024 11:26 AM EDT 08/01/20 24 Active traZODone HCl 150 MG Oral Tablet (Desyrel) Take 1 Tablet by mouth at bedtime. 90 Tablet 08/16/2024 10:49 AM EST 08/15/20 24 Active hydrOXYzine HCl 25 MG Oral Tablet Take 1 tablet by mouth three times daily as needed for anxiety 270 Tablet 09/06/2024 7:35 AM EST 09/04/20 24 Active Anoro Ellipta 62.5-25 MCG/ACT Inhalation Aerosol Powder Breath Activated (umeclidinium-denice nterol) Inhale 1 Puff by mouth in the morning. 180 Each 3 09/18/2024 11:16 AM EST 09/18/20 Active Baclofen 10 MG Oral Tablet (Lioresal) TAKE 1 TABLET BY MOUTH THREE TIMES A DAY NEEDED FOR MUSCLE SPASM 90 Tablet 3 07/26/2024 7:54 AM EDT 07/24/20 025 Discontin ued(Refil l) documented as of this encounter (statuses as of 10/25/2024) Active Problems Problem Noted Date Diagnosed Date [...] rupture 03/04 Atherosclerosis of coronary artery of [place] heart without angina pectoris 03/22/2023 History [...] as of this encounter (statuses as of 10/25/2024) Resolved Problems Problem Noted Date Diagnosed Date [...] as of this encounter (statuses as of 10/25/2024) Immunizations Name Administration Dates Next Due COVID-19 [...] 09/14/2024 Does the household have a re lar source of income? (Household - for ages [...] encounter Miscellaneous Notes * Telephone Encounter - Sunshine Lorenzo, application consultant - 10/23/2024 1:37 PM EST Pt calling to check on status of PA for neelam. Informed pt that we are waiting on a response from insurance. Caller verbalized understanding. States she is out of medication. Caller can be reached at [phone]. Thank you, Sunshine Lorenzo Broadcaster [facility] ([facility]) 10/23/2024,1:37 PM * Telephone Encounter - An Manley application consultant - 10/23/2024 8:45 AM EST Submitted information in previous note via Entangled MediaPA (EOC: [id number]).. Awaiting payer response. We will follow-up with insurance starting 10/25. Per [facility] request, if no decision is received from insurance by 10/25, we will route back to the [facility] after clarifying with the pharmacy that the claim is still not processing. Thanks, An Manley Surface Supervisor III [facility] Clinical Pharmacy Services ([facility]) 10/23/2024,8:45 AM * [facility] - [facility] 12[facility]23 PM EST Will attempt [...] is 37 kg/m2 Associated Diagnoses Atherosclerosis of [place] coronary artery of [place] heart without angina pectoris [I25.10] Arteriosclerosis of abdominal aorta (HCC) [I70.0] Continuation of therapy/approval Pt on statin and HTN meds What other drugs is there medical record documentation of therapeutic failure on, intolerance to, or contraindication to for this condition? N/a Joey as urgent: No Diagnosis/ICD-10 Code(s): Associated Diagnoses Atherosclerosis of [place] coronary artery of [place] heart without angina pectoris [I25.10] Arteriosclerosis of abdominal aorta (HCC) [I70.0] If instantaneous decision is not received after submitting prior auth, please continue to follow upon this and route back to the [facility] pool if no decision is made by the insurance by 10/25, after clarifying with the pharmacy that the claim is still not processing. If PA is denied, please also route back to [facility]. Thank you, Lisa Zhu, PharmD Clinical Pharmacist [facility] ([facility]) 10/22/24 12:23 PM [phone] * Telephone Encounter - Daniela Xavier MD - 10/22/2024 12:03 PM EST There is an addendum on that visit that states the following: Lashawn Ragland continues to benefit from Wegovy to reduce the risk of major adverse cardiovascular events (cardiovascular , non-fatal myocardial infarction, or non-fatal stroke). * Telephone Encounter - Christoph Steel CPhT - 10/22/2024 8:28 AM EST P denied prior auth before information below could be submitted Denial rationale: "Do not see prescriber attestation stating that the member continues to benefit from Wegovy to reduce the risk of major adverse cardiovascular events (cardiovascular , nonfatalmyocardial infarction, or non-fatal stroke)" Please review and add additional information to that below for resubmission if appropriate Thank you, Theron Steel (sewer tapper) Surface Supervisor III [facility] ([facility]) 10/22/2024, 8:28 AM * Telephone Encounter - Ember Barrientos [facility] - 10/19/2024 4:07 PM EST Please submit PA. Include the following documentation: 07/05/2024 OV with provider 03/14/2024 OV nutrition and weight Please copy and paste the following information into PA form: Pt prescribed to reduce the risk of major adverse cardiovascular events (cardiovascular , non-fatal myocardial infarction, or non-fatal stroke). BMI is 37 kg/m2 Associated Diagnoses Atherosclerosis of [place] coronary artery of [place] heart without angina pectoris [I25.10] Arteriosclerosis of abdominal aorta (HCC) [I70.0] Continuation of therapy/approval Pt on statin and HTN meds What other drugs is there medical record documentation of therapeutic failure on, intolerance to, or contraindication to for this condition? N/a Joey as urgent: No Diagnosis/ICD-10 Code(s): Associated Diagnoses Atherosclerosis of [place] coronary artery of [place] heart without angina pectoris [I25.10] Arteriosclerosis of abdominal aorta (HCC) [I70.0] If instantaneous decision is not received after submitting prior auth, please continue to follow upon this and route back to the [facility] pool if no decision is made by the insurance by 10/25, after clarifying with the pharmacy that the claim is still not processing. If PA is denied, please also route back to [facility]. Thank you, Ember Barrientos, PharmD Clinical Pharmacist [facility] ([facility]) [phone] 10/19/2024, 4:07 PM * Telephone Encounter - Daniela Xavier MD - 10/19/2024 3:46 PM EST 07/05/24 OV addended * Telephone Encounter - Susy Figueroa [facility] - 10/19/2024 11:09 AM EST Neelam prior authorization is in progress Patient insurance is requesting: " prescriber attestation stating that the member continues to benefit from Wegovy to reduce the risk of major adverse cardiovascular events (cardiovascular , non-fatal myocardial infarction, or non-fatal stroke. " Please addend this message thread or 07/05/24 OV [place] [phone] so that additional information can be submitted Thank you, Susy Figueroa, PharmD Clinical Pharmacist [facility] ([facility]) 10/19/24 11:16 AM [phone] * Telephone Encounter - Christoph Steel CPhT - 10/19/2024 10:47 AM EST Patients insurance would like to inform the office that Wegovy 0.5 MG/0.5ML is requiring additionalinformation: prescriber attestation stating that the member continues to benefit from Wegovy to reduce the risk of major adverse cardiovascular events (cardiovascular , non-fatal myocardial infarction, or non-fatal stroke). Prior authorization entered in PromptPA at [facility]. EOC# [id number] Please send to [facility] before 12PM 10/10/24. Thank you, Theron Steel ([facility]) Surface Supervisor III [facility] ([facility]) 10/19/2024, 10:47 AM * Telephone Encounter - Hayley Devine CPhT - 10/18/2024 12:35 PM EST Submitted information in previous note via PromptPA (EOC: [id number]).. Awaiting payer response. We will follow-up with insurance starting 10/22. Per [facility] request, if no decision is received from insurance by 10/24, we will route back to the [facility] after clarifying with the pharmacy that the claim is still not processing. Thank you, Hayley Devine Broadcaster [facility] 10/18/2024,12:35 PM * Telephone Encounter - Yoon aClderón [facility] - 10/17/2024 12:43 PM EST Please [...] and route back to the [facility] pool if no decision is made by the insurance by 10/24, after clarifying with the pharmacy that the claim is still not processing. If PA is denied, please also route back to [facility]. Thank you, Yoon Calderón PharmD, PILI Clinical Pharmacist [facility] ([facility]) 10/17/24 12:43 PM [phone] * Telephone Encounter - Yoon Calderón [facility] - 10/17/2024 12:28 PM EST Images from the original note were not included. This is a new PA request. Upon review of this prior authorization request, I verified this request is appropriate. This is prescribed by a department for which [facility] is authorized to review prior authorizations [...] note, there is nothing currently pending in [facility] for this request. Please advise how to proceed. Thank you, Yoon Calderón PharmD, PILI Clinical Pharmacist [facility] ([facility]) 10/17/24 12:28 PM [phone] * Telephone Encounter - Yina Mendoza CPhT - 10/17/2024 10:50 AM EST Pharmacy calling to inform doctor that the patient's insurance will not pay for this medication without a completed prior authorization. Did confirm this information with the pharmacy. Pt's current insurance information is as follows: Patient name: Lashawn Ragland ID number: [id number] BIN number: [id number] PCN number: [id number] Group number: [id number] Subscriber name: Lashawn Ragland Primary or Secondary Insurance:Primary Medication: wegovy 0.5mg/0.5ml Reason for Request: [place] Pharmacy and phone number: [facility] [phone] Rx plan and phone number: [facility] [phone] Is this a new medication for the patient? No. How did the patient obtain the medication on the lastfill? It was covered last time on this same insurance. What alternative medications does the pharmacy have in stock?: Thank you, Yina Mendoza CPhT Surface Supervisor [facility] ([facility]) 10/17/2024, 10:51 AM documented in this encounter Plan of Treatment Upcoming Encounters Date Type Department Care Team (Late st Contact Info) Description 12/11/2024 1:00 PM EDT Imaging Radiology [facility] [address] [place] [phone] 01/03/2025 1:00 PM EDT Office Visit Family Practice [facility] [place] [address] [place] [address] Daniela Xavier MD [address] [place] [address] 03/08/2025 3:00 PM EDT Office Visit Nephrology, [facility] [address] [place] [address] Zahira Edward MD [address] [place] [address] [address] 05/30/2025 10:30 AM EDT Home Visit Care at Home [address] [place] [address] Amber Goldman PA-C [address] [place] [address] Scheduled Procedures Name Priority Associated Diagnoses Date/Ti [...] D LEVEL ONCE IN A LIFETIME-USE SMARTSET# [id number] Completed 02/07/2023, 12/07/2017, 05/03/2013, Additional history exists [...] [facility] C are Wireworker Supervisor (appointed verbally by patient or by statute hierarchy) Care Teams Boiler Setter Relationship Specialty Start Date End Date Zion Guzman III, MD [address] [place] [address] PCP - General 05/17/1996 documented as of this encounter
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
--- OUTSIDE RECORDS SUMMARY | 2024-11-20 23:51 | External Medical Summary | Summary of Care ---
Author Name Unknown Organization [facility] Address [address] [place] [address] Phone [phone] Care Team Providers Care Health Researcher Name Role Phone Thomas LEIVA MD, Zion Mireles Primary Care Provider [phone] Reason for Visit * Reason Comments Medication Refill Encounter Details Date Type Department Care Team (Late st Contact Info) Description 11/11/2024 Refill [facility]rologyAnnia [address] [place] [address] QuezadaMachelle soto MD [address] [place] [address] Allergies Active Allergy Reactions Criticality Noted Date Comments Iodinated Contrast Media High 01/02/2024 Other Reaction(s): facial swelling [facility] 08/04/19 Other Allergy (See Comments) 09/07/[address] Contrast Penicillins Anaphylaxis High 09/10/1999 documented as of this encounter (statuses as of 11/13/2024) Medications Acetaminophen 500 MG Oral Tablet Take [...] 11/08/2023 10:49 AM EST 11/07/19 24 Active traZODone HCl 150 MG Oral Tablet (Desyrel) take 1 tablet by mouth at bedtime-daily 90 Tablet 02/17/2024 4:15 PM EDT 02/15/20 24 Active amLODIPine Besylate 2.5 MG Oral Tablet (Norvasc)Indicatio ns:HTN, goal below 140/90 Take 1 Tablet by mouth in the morning. 90 Tablet 3 08/16/2024 1:22 PM EST 02/23/20 24 Active Nystatin 299533 UNIT/GM External Powder (Nystop) Apply 1 Dose [...] 2 mL 11 10/31/2024 7:22 AM EST 07/05/20 24 Active Anoro Ellipta 62.5-25 MCG/ACT Inhalation Aerosol Powder Breath Activated (umeclidinium-denice nterol) Inhale 1 Puff by mouth in the morning. 180 Each 3 09/18/2024 11:16 AM EST 09/18/20 24 Active Baclofen 10 MG Oral Tablet (Lioresal) TAKE 1 TABLET BY MOUTH THREE TIMES A DAY NEEDED FOR MUSCLE SPASM 90 Tablet 3 10/26/2024 2:08 PM EST 10/22/19 25 Active buPROPion HCl ER (XL) 300 MG Oral Tablet Extended Release 24 Hour (Wellbutrin XL) take one tablet by mouth every morning 90 Tablet 10/25/19 25 Active DULoxetine HCl 60 MG Oral Capsule Delayed Release Particles (Cymbalta) take two capsules by mouth once daily in the morning 180 Capsule 10/26/2024 4:39 PM EST 10/25/19 25 Active traZODone HCl 150 MG Oral Tablet (Desyrel) take one tablet by mouth every night at bedtime 90 Tablet 11/01/2024 5:47 PM EST 10/25/19 25 Active buPROPion HCl ER (XL) 150 MG Oral Tablet Extended Release 24 Hour (Wellbutrin XL) take one tablet by mouth daily in the morning in addition to the 300mg tablet 90 Tablet 10/25/19 25 Active busPIRone HCl 10 MG Oral Tablet (Buspar) Take 1 Tablet by mouth in the morning and 1 Tablet at noon and 1 Tablet before bedtime. 270 Tablet 1 11/02/2024 8:50 AM EST 10/30/19 25 Active hydrOXYzine HCl 25 MG Oral Tablet Take 1 tablet by mouth three times daily as needed for anxiety 270 Tablet 11/02/19 25 Active busPIRone HCl 30 MG Oral Tablet take 1 tablet by mouth twice a day 180 Tablet 11/05/2024 2:14 PM EST 11/02/19 25 Active hydroCHLOROthiazid e 12.5 MG Oral Tablet Take 1 Tablet by mouth in the morning. 90 Tablet 3 11/12/19 25 Active hydroCHLOROthiazid e 12.5 MG Oral Tablet (Hydrodiuril) Take 1 Tablet by mouth in the morning. 90 Tablet 3 08/20/2024 7:45 AM EST 11/28/19 24 025 Discontin ued(Refil l) documented as of this encounter (statuses as of 11/13/2024) Active Problems Problem Noted Date Diagnosed Date [...] rupture 03/04 Atherosclerosis of coronary artery of [place] heart without angina pectoris 03/22/2023 History of [...] as of this encounter (statuses as of 11/13/2024) Resolved Problems Problem Noted Date Diagnosed Date [...] as of this encounter (statuses as of 11/13/2024) Immunizations Name Administration Dates Next Due COVID-19 [...] Telephone Encounter - Machelle Quezada MD - 11/12/2024 9:48 PM ESTSigned Prescriptions: Disp Refills hydroCHLOROthiazide 12.5 MG Oral Tablet 90 Tab*3 Sig: Take 1 Tablet by mouth in the morning. Authorizing Provider: MACHELLE QUEZADA * Telephone Encounter - Katie Nolasco RN - 11/12/2024 9:50 AM ESTPending Prescriptions: Disp Refills hydroCHLOROthiazide 12.5 MG Oral Tablet 90 Tab*3 Sig: Take 1 Tablet by mouth in the morning. * Telephone Encounter - Katie Nolasco RN - 11/12/2024 9:48 AM EST Prescription request received from pharmacy pending. Please authorize. Last OV 11/04/23 Next OV 03/08/25 documented in this encounter Plan of Treatment Upcoming Encounters Date Type Department Care Team (Late st Contact Info) Description 12/11/2024 1:00 PM EDT Imaging Radiology [facility] [address] [place] [phone] 01/03/2025 1:00 PM EDT Office Visit Family Practice [facility] [address] [facility] [place] [address] Daniela Xavier MD [address] [facility] [place] [address] 03/08/2025 3:00 PM EDT Office Visit Nephrology, [facility] [address] [facility] [place] [address] Machelle Quezada MD [address] [facility] [place] [address] 05/30/2025 10:30 AM EDT Home Visit Care at Home [address] [place], [place] [phone] Amber Goldman PA-C [address] [place], [place] [phone] Scheduled Procedures Name Priority Associated Diagnoses Date/Ti [...] exists Adult Wellness Visit 05/31/2025 05/31/2024, 05/26/20 Depression Monitoring 06/05/2025 06/05/2024 O2 ASSESSMENT COMPLETED [...] D LEVEL ONCE IN A LIFETIME-USE SMARTSET# [id number] Completed 02/07/2023, 12/07/2017, 05/03/2013, Additional history exists [...] Relationship Healthcare Agent Relationship Communication Timothy "Garfield" [facility] Health C are Appointment Scheduler (appointed verbally by patient or by statute hierarchy) Care Teams Health Researcher Relationship Specialty Start Date End Date Zion Guzman III, MD [address] [facility] [place] [address] PCP - General 05/17/1996 documented as of this encounter
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
--- OUTSIDE RECORDS SUMMARY | 2024-11-20 23:53 | External Medical Summary | Summary of Care ---
Author Name Unknown Organization [facility] Address [address] [place] [address] Phone [phone] Care Team Providers Care Pot Feeder Name Role Phone Thomas LEIVA MD, Inocencio Mireles Primary Care Provider Reason for Visit * Reason Comments Medication Refill Encounter Details Date Type Department Care Team (Late st Contact Info) Description 07/31/2024 Refill Family Practice [facility] [address] [place] [address] Kathy Cee, [address] [place] [address] Allergies Active Allergy Reactions Criticality Noted Date Comments Iodinated Contrast Media High 01/02/2024 Other Reaction(s): facial swelling [facility] 08/04/19 Other Allergy (See Comments) 09/07/[address] Contrast Penicillins Anaphylaxis High 09/10/1999 documented as of this encounter (statuses as of 08/01/2024) Medications Medication Sig Dispensed Refills Start Date End Date Status Acetaminophen 500 MG Oral Tablet Take 1 Tablet by mouth every 6 hours as needed for Pain. Active Albuterol Sulfate (2.5 MG/3ML) 0.083% Inhalation Nebulization Solution (Proventil)Indicati ons:COPD exacerbation (HCC),Bronchitis, complicated Inhale 1 Vial via nebulizer every 4 hours as needed for Wheezing. 360 mL 09/02/2023 Active Ondansetron 4 MG Oral Tablet Disintegrating (Zofran)Indications :Nausea Place 1 Tablet on tongue and dissolve every 8 hours as needed for Nausea. 300 Tablet 09/06/2023 Active Proventil HFA 108 (90 Base) MCG/ACT Inhalation Aerosol Solution Inhale 2 Puffs by mouth four times daily; in the morning, at noon, in the evening and before bedtime. 54 g 09/06/2023 Active Anoro Ellipta 62.5-25 MCG/ACT Inhalation Aerosol Powder Breath Activated (umeclidinium-vilan terol) Inhale 1 Puff by mouth in the morning. 180 Each 3 09/06/2023 Active Torsemide 5 MG Oral Tablet (Demadex)Indication s:HTN, goal below 140/90 Take 1 Tablet by mouth in the morning. 90 Tablet 11/07/2023 Active hydroCHLOROthiazide 12.5 MG Oral Tablet (Hydrodiuril) Take 1 Tablet by mouth in the morning. 90 Tablet 3 11/28/2023 Active DULoxetine HCl 60 MG Oral Capsule Delayed Release Particles (Cymbalta) Take 2 Capsules by mouth in the morning. 180 Capsule 1 02/10/2024 Active traZODone HCl 150 MG Oral Tablet (Desyrel) take 1 tablet by mouth at bedtime-daily 90 Tablet 02/15/2024 Active amLODIPine Besylate 2.5 MG Oral Tablet (Norvasc)Indication s:HTN, goal below 140/90 Take 1 Tablet by mouth in the morning. 90 Tablet 3 02/23/2024 Active Nystatin 745689 UNIT/GM External Powder (Nystop) Apply 1 Dose topically to affected area in the morning and 1 Dose at noon and 1 Dose before bedtime. 180 g 1 05/01/2024 Active Triamcinolone Acetonide 0.1 % External Cream (Aristocort) Apply topically to affected area 2 times a day. 80 g 5 05/01/2024 Active Pregabalin 200 MG Oral Capsule (Lyrica) Take 1 Capsule by mouth in the morning and 1 Capsule before bedtime. 180 Capsule 5 05/02/2024 Active traZODone HCl 150 MG Oral Tablet (Desyrel) Take 1 tablet by mouth every night at bedtime 90 Tablet 05/15/2024 Active buPROPion HCl ER (XL) 300 MG Oral Tablet Extended Release 24 Hour (Wellbutrin XL) Take 1 Tablet by mouth in the morning. 90 Tablet 2 06/17/2024 Active hydrOXYzine HCl 25 MG Oral Tablet Take 1 tablet by mouth three times daily as needed for anxiety 270 Tablet 06/18/2024 Active Atorvastatin Calcium 20 MG Oral Tablet (Lipitor) TAKE ONE TABLET BY MOUTH IN THE MORNING 90 Tablet 3 06/27/2024 Active buPROPion HCl ER (XL) 150 MG Oral Tablet Extended Release 24 Hour (Wellbutrin XL) Take 1 Tablet by mouth in the morning. in addition to the 300mg tablet. 90 Tablet 2 06/27/2024 Active Wegovy 0.5 MG/0.5ML Subcutaneous Solution Auto-injector (Semaglutide-Weight Management) Inject 0.5 mg under the skin once a week. 2 mL 11 07/05/2024 Active Baclofen 10 MG Oral Tablet (Lioresal) TAKE 1 TABLET BY MOUTH THREE TIMES A DAY NEEDED FOR MUSCLE SPASM 90 Tablet 3 07/24/2024 Active busPIRone HCl 10 MG Oral Tablet (Buspar) Take 1 Tablet by mouth in the morning and 1 Tablet at noon and 1 Tablet before bedtime. 270 Tablet 08/01/2024 Active busPIRone HCl 10 MG Oral Tablet (Buspar) Take 1 Tablet by mouth in the morning and 1 Tablet at noon and 1 Tablet before bedtime. 270 Tablet 03/30/2024 Discontinue d(Refill) documented as of this encounter (statuses as of 08/01/2024) Active Problems Problem Noted Date Diagnosed Date [...] rupture 03/04 Atherosclerosis of coronary artery of [place] heart without angina pectoris 03/22/2023 History of [...] as of this encounter (statuses as of 08/01/2024) Resolved Problems Problem Noted Date Diagnosed Date Resolved Date Food insecurity 09/12/2023 12/15/2023 Overview: Per [facility] Protocol Hypertensive heart and kidne y disease without heart failure and with stage 3a chronic kidney disease 09/02/2023 09/02/2023 Hypertensive kidney disease with stage 3b chronic kidney disease 05/26/2023 06/05/2024 Last Assessment & Plan: BP at goal [...] 11/23/2017 05/16/2024 Thoracic spine pain 11/23/2017 05/16/20 24 Thoracic compression fracture 11/23/2017 12/07/2017 Lumbar compression fracture 11/23/2017 01/12/2023 Degeneration of lumbar intervertebral disc 11/23/2017 01/12/2023 Overview: Duplicate diagnosis on problem list Compression fracture of spine 01/11/2013 01/12/2023 Benign neoplasm of colon 09/30/200804/2023 Overview: adenomatous/repeat colonoscopy in 5 yrs Backache 05/16/2007 02/15/2019 Injury of thoracic aorta 03/16/200709/2023 Chest pain 11/09/2006 02/15/2019 ADVANCE DIRECTIVE INFORMATION 03/25/2005 07/05/2024 Overview: Yes, Patient instructed to provide copy [...] as of this encounter (statuses as of 08/01/2024) Immunizations Name Administration Dates Next Due COVID-19 [...] the money to buy more. Never true 06/05/20 24 Within the past 12 months, t he food you bought just didn't last and you didn't have money to get more. Never true 06/05/2024 Childcare Answer Date Recorded Do you feel overwhelmed with taking care of a child, family member or friend? No 06/05/2024 Does your family need help f inding childcare? (Household - for ages 0-17 years) Not on file 06/05/2024 Clothing Answer Date Recorded Have you been unable to get clothing when it was really needed? No 06/05/2024 Is your family able to get c lothes or diapers when needed? (Household - for ages 0-17 years) Not on file 06/05/2024 Personal Safety Answer Date Recorded Do you feel unsafe or have concerns for your saf ety? No 06/05/2024 Do you have concerns for you r family's safety? (Household - for ages 0-17 years) Not on file 06/05/2024 Utilities Answer Date Recorded Do you have trouble paying y our heating, water, or electric bill? No 06/05/2024 Is your family able to pay t he heat, water, or electric bill? (Household - for ages 0-17 years) Not on file 06/05/2024 Does your family have access to good internet? (Household - for ages 0-17 years) Not on file 06/05/2024 Employment Status Answer Date Recorded Are you unemployed or without regular income? No 06/05/2024 Does the household have a re gular source of income? (Household - for ages 0-17 years) Not on file 06/05/2024 Social Connections Answer Date Recorded How often do you feel lonely or isolated from th ose around you? Never 06/05/2024 Financial Resource Strain Answer Date R ecorded Do you have any trouble payi ng for your medications, or do you think you might in the future? No 06/05/2024 Does your family have troubl e paying for medicine? (Household - for ages 0-17 years) Not on file 06/05/2024 Transportation Needs Answer Date Record ed READ ONLY Do you have troubl e getting a ride to medical visits or work? Never True 06/05/2024 Does your family have a hard time getting a ride to doctors visits? (Household - for ages 0-17 years) Not on file 06/05/2024 Has lack of transportation k ept you from medical appointments, meetings, work, or from getting things needed for daily living? Check all that apply. No 06/05/2024 Do you (or your family) have trouble finding or paying for a ride (transportation)? (Household - for ages 0-17 years) Not on file 06/05/2024 Housing Stability Answer Date Recorded Do you currently live in a s helter or have no steady place to sleep at night? No 06/05/2024 READ ONLY Do you think you a re at risk of becoming homeless? No 06/05/2024 Does your family worry about paying for your home or becoming homeless? (Household - for ages 0-17 years) Not on file 0 06/05/2024 Are you homeless or worried that you might be in the future? No 06/05/2024 Are you (or your family) андрей eless or worried that you might be in the future? (Household - for ages 0-17 years) Not on file Food Insecurity Answer Date Recorded Do you need food for this week? No 06/05/2024 Are you able to get enough f ood for your family? (Household - for ages 0-17 years) Not on file 06/05/2024 Does your family need food t his week? (Household - for ages 0-17 years) Not on file 06/05/2024 Do you always have enough fo od for your family? (Household - for ages 0-17 years) Not on file 06/05/2024 Sex and Gender Information Value Date Recorded Sex Assigned at Female 02/15/2019 11:07 AM EDT Gender Identity Female 02/15/2019 11:07 AM EDT Sexual Orientation Straight 02/15/2019 11 :07 AM EDT Job Start Date Occupation Industry Not on file Not on file Not on file documented as of this encounter Miscellaneous Notes * Telephone Encounter - Inocencio Gunter III, MD - 08/01/2024 10:57 AM EDTSigned Prescriptions: Disp Refills busPIRone HCl 10 MG Oral Tablet (Buspar) 270 Ta*0 Sig: Take 1 Tablet by mouth in the morning and 1 Tablet at noon and 1 Tablet before bedtime. Authorizing Provider: INOCENCIO GUNTER III * Telephone Encounter - Anneliese Fernandez CPhT - 08/01/2024 10:26 AM EDT Did you pend patient's preferred pharmacy and medication before forwarding?yes Pharmacy: [facility] Pending Prescriptions: Disp Refills busPIRone HCl 10 MG Oral Tablet (Buspar) 270 Ta*0 Sig: Take 1 Tablet by mouth in the morning and 1 Tablet at noon and 1 Tablet before bedtime. Last Visit: 07/05/2024 (in office), 12/16/2020 (telemedicine) Next Visit: 01/03/2025 If no future appointments scheduled, and last appointment is greater than a year ago, please schedule patient for a follow-up appointment Last date the medication was ordered: 03/30/24 Is this request for a controlled substance?No [...] found in Results Review. Patient Phone Numbers [facility] [phone] Labs: Lab Results Component Value Date/Time CREAT 0.7 05/15/2024 08:34 AM CREAT 0.83 06/03/2020 12:00 AM CREAT 0.5 12/07/2017 12:58 PM POTASSIUM 4.9 11/21/2023 10:11 AM POTASSIUM 4.4 06/03/2020 12:00 AM POTASSIUM 4.4 12/07/2017 12:58 PM TSH 0.55 04/08/2021 01:18 PM TSH 1.07 12/07/2017 12:58 PM TSH 1.52 11/01/1996 01:20 PM LDL 72 07/05/2024 02:57 PM LDL 137 (H) 12/10/2013 08:29 AM LDL NOT APPLICABLE 12/10/2013 08:29 AM LDLCALC 88.0 08/19/2017 12:00 AM ALT 18 02/07/2023 11:12 AM ALT 16 12/07/2017 12:58 PM HGBA1C 5.3 07/05/2024 02:57 PM HGBA1C 5.7 (H) 08/14/2019 03:12 PM * Telephone Encounter - Marie Loyd RP - 08/01/2024 8:46 AM EDT Pending Prescriptions: Disp Refills busPIRone HCl 10 MG Oral Tablet (Buspar) 270 Ta*0 Sig: Take 1 Tablet by mouth in the morning and 1 Tablet at noon and 1 Tablet before bedtime. * Telephone Encounter - Marie Loyd RPh - 08/01/2024 8:46 AM EDT Refill pharmacists currently not authorized to approve refills for this class of medication per refill protocol. Please approve if appropriate. Thank you, Marie Loyd, PharmD. Clinical Pharmacist Pharmacy Refill Call Center 08/01/2024, 8:46 AM documented in this encounter Plan of Treatment Upcoming Encounters Date Type Department Care Team (Late st Contact Info) Description 09/20/2024 11:00 AM EST Office Visit Nutrition & Weight Management, [facility] [address] [place] [address] Yajaira Cook PA-C [address] [place] [address] 12/11/2024 1:00 PM EDT Imaging Radiology, [facility] [address] [facility] [place] [address] 01/03/2025 1:00 PM EDT Office Visit Family Practice [facility] [address] [facility] [place] [address] Daniela Xavier MD [address] [facility] [place], [place] [address] 03/08/2025 3:00 PM EDT Office Visit Nephrology, [facility] [address] [facility] [place] [address] Zahira Edward MD [address] [facility] [address] [place] [address] 05/30/2025 10:30 AM EDT Home Visit Care at Home [address] [place] [address] Amber Goldman PA-C [address] [place] [address] Scheduled Procedures Name Priority Associated [...] 18-100 Discontinued 06/26/2019, 06/26/2019, 09/30/2008 Pneumococcal Vaccine: 65+ Years Completed 12/16/2021, 11/16/2019, 03/05/2010 Zoster Vaccines Completed 11/16/2022, 10/12/2022 VITAMIN D LEVEL ONCE IN A LIFETIME-USE SMARTSET# [id number] Completed 02/07/2023, 12/07/2017, 05/03/2013, Additional history exists [...] Relationship Healthcare Agent Relationship Communication Timothy "Garfield" [facility] are Outside Sales Associate (appointed verbally by patient or by statute hierarchy) Care Teams Pot Feeder Relationship Specialty Start Date End Date Inocencio Gunter III, MD [address] [place] [address] PCP - General 05/17/1996 documented as of this encounter
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
--- OUTSIDE RECORDS SUMMARY | 2024-11-20 23:53 | External Medical Summary | Summary of Care ---
Author Name Unknown Organization [facility] Address [address] [place] [address] Phone [phone] Care Team Providers Care Dimpling Machine Operator Name Role Phone Thomas LEIVA MD, Zion Mireles Primary Care Provider Encounter Details Date Type Department Care Team (Late st Contact Info) Description 08/09/2024 Population Health External Data Unspecified Department Allergies Active Allergy Reactions Criticality Noted Date Comments Iodinated Contrast Media High 01/02/2024 Other Reaction(s): facial swelling [facility] 08/04/19 Other Allergy (See Comments) 09/07/[address] Contrast Penicillins Anaphylaxis High 09/10/1999 documented as of this encounter (statuses as of 08/16/2024) Medications Acetaminophen 500 MG Oral Tablet Take [...] g 09/08/2023 7:30 AM EST 3 Active Anoro Ellipta 62.5-25 MCG/ACT Inhalation Aerosol Powder Breath Activated (umeclidinium-denice nterol) Inhale 1 Puff by mouth in the morning. 180 Each 3 03/20/2024 10:22 AM EDT 3 Active Torsemide 5 MG Oral Tablet (Demadex)Indicatio ns:HTN, goal below 140/90 Take 1 Tablet by mouth in the morning. 90 Tablet 11/08/2023 10:49 AM EST 4 Active hydroCHLOROthiazid e 12.5 MG Oral Tablet (Hydrodiuril) Take 1 Tablet by mouth in the morning. 90 Tablet 3 05/21/2024 5:42 PM EDT 4 Active traZODone HCl 150 MG Oral Tablet (Desyrel) take 1 tablet by mouth at bedtime-daily 90 Tablet 02/17/2024 4:15 PM EDT 4 Active amLODIPine Besylate 2.5 MG Oral Tablet (Norvasc)Indicatio ns:HTN, goal below 140/90 Take 1 Tablet by mouth in the morning. 90 Tablet 3 05/18/2024 9:00 AM EDT 4 Active Nystatin 470817 UNIT/GM External Powder (Nystop) Apply 1 Dose topically to affected area in the morning and 1 Dose at noon and 1 Dose before bedtime. 180 g 1 05/02/2024 4:27 PM EDT 4 Active Triamcinolone Acetonide 0.1 % External Cream (Aristocort) Apply topically to affected area 2 times a day. 80 g 5 07/26/2024 7:54 AM EDT 4 Active Pregabalin 200 MG Oral Capsule [...] mouth in the morning. 90 Tablet 2 06/19/2024 8:07 AM EDT 4 Active hydrOXYzine HCl 25 MG Oral Tablet Take 1 tablet by mouth three times daily as needed for anxiety 270 Tablet 06/19/2024 6:28 PM EDT 4 Active Atorvastatin Calcium 20 MG Oral Tablet (Lipitor) TAKE ONE TABLET BY MOUTH IN THE MORNING 90 Tablet 3 06/28/2024 10:56 AM EDT 4 Active buPROPion HCl ER (XL) 150 MG Oral Tablet Extended Release 24 Hour (Wellbutrin XL) Take 1 Tablet by mouth in the morning. in addition to the 300mg tablet. 90 Tablet 2 06/28/2024 6:39 AM EDT 4 Active Wegovy 0.5 MG/0.5ML Subcutaneous Solution Auto-injector (Peacock Parade) Inject 0.5 mg under the skin once a week. 2 mL 11 07/30/2024 2:56 PM EDT 4 Active Baclofen 10 MG Oral Tablet [...] 1 08/03/2024 11:26 AM EDT 4 Active documented as of this encounter (statuses as of 08/16/2024) Active Problems Problem Noted Date Diagnosed Date [...] rupture 03/04 Atherosclerosis of coronary artery of [place] heart without angina pectoris 03/22/2023 History of [...] as of this encounter (statuses as of 08/16/2024) Resolved Problems Problem Noted Date Diagnosed Date [...] as of this encounter (statuses as of 08/16/2024) Immunizations Name Administration Dates Next Due COVID-19 [...] ages 0-17 years) Not on file 06/05/2024 Comments No Sex and Gender Information Value [...] EST Office Visit Nutrition & Weight Management, [facility] [address] [facility] [place] [address] Yajaira Cook PA-C [address] [place] [address] 12/11/2024 1:00 PM EDT Imaging Radiology, [facility] [address] [facility] [place] [address] 01/03/2025 1:00 PM EDT Office Visit Family Practice [facility] [address] [place] [address] Daniela Xavier MD [address] [place] [address] 03/08/2025 3:00 PM EDT Office Visit Nephrology, [facility] 200 [facility] [place], [place] [address] Zahira Edward MD 200 [facility] [place] [address] 05/30/2025 10:30 AM EDT Home Visit Care at Home [address] [place] [address] Amber Goldman PA-C [address] [place] [address] Scheduled Procedures Name Priority Associated [...] D LEVEL ONCE IN A LIFETIME-USE SMARTSET# [id number] Completed 02/07/2023, 12/07/2017, 05/03/2013, Additional history exists [...] Healthcare Agent Relationship Communication Timothy "Garfield" [facility] C are Pattern Room Attendant (appointed verbally by patient or by statute hierarchy) Care Teams Dimpling Machine Operator Relationship Specialty Start Date End Date Zion Guzman III, MD 200 [place] [address] PCP - General 05/17/1996 documented as of this encounter
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
--- OUTSIDE RECORDS SUMMARY | 2024-11-20 23:53 | External Medical Summary | Summary of Care ---
Author Name Unknown Organization [facility] Address [address] [place] [address] Phone [phone] Care Team Providers Care Sand Cutter Name Role Phone Thomas LEIVA MD, Zion Mireles Primary Care Provider Reason for Visit * Reason Onset Date Comments Medication Pre-auth 10/17/2024 Wegovy 0.5mg /0.5ml Encounter Details Date Type Department Care Team (Late st Contact Info) Description 10/17/2024 Telephone Family Practice [facility] 200 [facility] [place] [address] Zion Guzman III, MD [address] [place] [address] Medication Pre-auth (Wegovy 0.5mg/0.5ml) Allergies Active Allergy Reactions Criticality Noted Date Comments Iodinated Contrast Media High 01/02/2024 Other Reaction(s): facial swelling [facility] 08/04/19 Other Allergy (See Comments) 09/07/2019 [...] 08/16/2024 1:22 PM EST 4 Active Nystatin 417983 UNIT/GM External Powder (Nystop) Apply 1 Dose [...] Active Wegovy 0.5 MG/0.5ML Subcutaneous Solution Auto-injector ([employer]) Inject 0.5 mg under the skin once [...] rupture 03/04 Atherosclerosis of coronary artery of [place] heart without angina pectoris 03/22/2023 History of [...] Miscellaneous Notes * Telephone Encounter - Ember Barrientos, [facility] - 10/19/2024 4:07 PM EST Please submit PA. Include the following documentation: 07/05/2024 OV with provider 03/14/2024 OV nutrition and weight Please copy and paste the following information into PA form: Pt prescribed to reduce the risk of major adverse cardiovascular events (cardiovascular , non-fatal myocardial infarction, or non-fatal stroke). BMI is 37 kg/m2 Associated Diagnoses Atherosclerosis of [place] coronary artery of [place] heart without angina pectoris [I25.10] Arteriosclerosis of abdominal aorta (HCC) [I70.0] Continuation of therapy/approval Pt on statin and HTN meds What other drugs is there medical record documentation of therapeutic failure on, intolerance to, or contraindication to for this condition? N/a Joey as urgent: No Diagnosis/ICD-10 Code(s): Associated Diagnoses Atherosclerosis of [place] coronary artery of [place] heart without angina pectoris [I25.10] Arteriosclerosis of abdominal aorta (HCC) [I70.0] If instantaneous decision is not received after submitting prior auth, please continue to follow upon this and route back to the [facility] pool if no decision is made by the insurance by 10/25, after clarifying with the pharmacy that the claim is still not processing. If PA is denied, please also route back to [facility] pool. Thank you, Ember Barrientos, PharmD Clinical Pharmacist [facility] ([facility]) [phone] 10/19/2024, 4:07 PM * Telephone Encounter - Daniela Xavier MD - 10/19/2024 3:46 PM EST 07/05/24 OV addended * Telephone Encounter - Susy Figueroa [facility] - 10/19/2024 11:09 AM EST Neelam prior authorization is in progress Patient insurance is requesting: " prescriber attestation stating that the member continues to benefit from Wegovy to reduce the risk of major adverse cardiovascular events (cardiovascular , non-fatal myocardial infarction, or non-fatal stroke. " Please addend this message thread or 07/05/24 OV [place] [phone] so that additional information can be submitted Thank you, Susy Figueroa, PharmD Clinical Pharmacist [facility] ([facility]) 10/19/24 11:16 AM [phone] * Telephone Encounter - Christoph Steel CPhT - 10/19/2024 10:47 AM EST Patients insurance would like to inform the office that Wegovy 0.5 MG/0.5ML is requiring additionalinformation: prescriber attestation stating that the member continues to benefit from Wegovy to reduce the risk of major adverse cardiovascular events (cardiovascular , non-fatal myocardial infarction, or non-fatal stroke). Prior authorization entered in PromptPA at [facility]. EOC# [id number] Please send to [facility] before 12PM 10/10/24. Thank you, Theron Steel ([facility]) Refinish Technician III [facility] ([facility]) 10/19/2024, 10:47 AM * Telephone Encounter - Hayley Devine CPhT - 10/18/2024 12:35 PM EST Submitted information in previous note via PromptPA (EOC: [id number]).. Awaiting payer response. We will follow-up with insurance starting 10/22. Per [facility] request, if no decision is received from insurance by 10/24, we will route back to the [facility] after clarifying with the pharmacy that the claim is still not processing. Thank you, Hayley Devine Seal Extrusion Operator [facility] 10/18/2024,12:35 PM * Telephone Encounter - Yoon Calderón [facility] - 10/17/2024 12:43 PM EST Please submit [...] this and route back to the [facility] pool if no decision is made by the insurance by 10/24, after clarifying with the pharmacy that the claim is still not processing. If PA is denied, please also route back to [facility]. Thank you, Yoon Calderón PharmD, PILI Clinical Pharmacist [facility] ([facility]) 10/17/24 12:43 PM [phone] * Telephone Encounter - Yoon Calderón [facility] - 10/17/2024 12:28 PM EST Images from the original note were not included. This is a new PA request. Upon review of this prior authorization request, I verified this request is appropriate. This is prescribed by a department for which [facility] is authorized to review prior authorizations [...] note, there is nothing currently pending in [facility] for this request. Please advise how to proceed. Thank you, Yoon Calderón PharmD, PILI Clinical Pharmacist [facility] ([facility]) 10/17/24 12:28 PM [phone] * Telephone Encounter - Yina Mendoza CPhT - 10/17/2024 10:50 AM EST Pharmacy calling to inform doctor that the patient's insurance will not pay for this medication without a completed prior authorization. Did confirm this information with the pharmacy. Pt's current insurance information is as follows: Patient name: Lashawn Ragland ID number: [id number] BIN number: [id number] PCN number: [id number] Group number: [id number] Subscriber name: Lashawn Ragland Primary or Secondary Insurance:Primary Medication: wegovy 0.5mg/0.5ml Reason for Request: [place] Pharmacy and phone number: [facility] [phone] Rx plan and phone number: [facility] [phone] Is this a new medication for the patient? No. How did the patient obtain the medication on the lastfill? It was covered last time on this same insurance. What alternative medications does the pharmacy have in stock?: Thank you, Yina Mendoza CPhT Refinish Technician [facility] ([facility]) 10/17/2024, 10:51 AM documented in this encounter Plan of Treatment Upcoming Encounters Date Type Department Care Team (Late st Contact Info) Description 12/11/2024 1:00 PM EDT Imaging Radiology [facility] [address] [place] [id number] 01/03/2025 1:00 PM EDT Office Visit Family Practice [facility] [place] [address] [place] [address] Daniela Xavier MD [address] [place] [address] 03/08/2025 3:00 PM EDT Office Visit Nephrology, Annia Thacker [address] [place] [address] Zahira Edward MD [address] [place] [address] 05/30/2025 10:30 AM EDT Home Visit Care at Home [address] [place] [address] Amber Goldman PA-C [address] [place] [address] Scheduled Procedures Name Priority Associated Diagnoses Date/Ti [...] D LEVEL ONCE IN A LIFETIME-USE SMARTSET# [id number] Completed 02/07/2023, 12/07/2017, 05/03/2013, Additional history exists [...] Communication Timothy "Garfield" [facility] are Steward/Stewardess Club Car (appointed verbally by patient or by statute hierarchy) Care Teams Sand Cutter Relationship Specialty Start Date End Date Zion Guzman III, MD [address] [place] [address] PCP - General 05/17/1996 documented as of this encounter
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
--- OUTSIDE RECORDS SUMMARY | 2024-11-20 23:54 | External Medical Summary ---
Author Name Unknown Address Unknown Organization K01:[facility] - [address] [facility] [address] Laboratory Report Ordering Provider Test Date Status LORENA CASE 07/05/2024 14:57:21 Final Observation Date Value Abnormality Reference (Units ) Status HbA1C 07/05/2024 14:57:21 5.3 4.0-5.6 (% ) Final The use of HbA1c to monitor glycemic status is based on normal hemoglobin and HbA composition. This test should not be used in patients with abnormal hemoglobin that affects the half life of the red blood cell or the in vivo glycation rates. Glucose, estimated average 07/05/2024 14:57:21 105 <126 (mg/dL) Final Performing Location [facility] [address] [facility] [address]
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
--- OUTSIDE RECORDS SUMMARY | 2024-11-20 23:54 | External Medical Summary ---
Author Name Unknown Address Unknown Organization K01:[facility] [place] [address] [facility] [place] [address] Laboratory Report Ordering Provider Test Date Status OTILIA WILSON 07/05/2024 14:57:21 Final Observation Date Value Abnormality Reference (Units ) Status Triglyceride 07/05/2024 14:57:21 84 <=174 ( mg/dL) Final Triglyceride Reference Range s (mg/dL):
<150 Acceptable
150-174 Borderline high
175-499 High
>=500 Very high Cholesterol 07/05/2024 14:57:21 139 <200 (mg /dL) Final Total Cholesterol Reference Ranges (mg/dL):
<200 Desirable
200-239 Borderline high
>=240 High HDL 07/05/2024 14:57:21 50 >49 (mg/dL ) Final HDL Cholesterol Reference Ra nges (mg/dL):
>=60 High (Desirable)
<50 Low (Undesirable) For Females
<40 Low (Undesirable) For Males NON-HDL CHOLESTEROL 07/05/2024 14:57:21 89 <=159 (mg/dL) Final Non-HDL Cholesterol Referenc e Range (mg/dL):
<100 Target level for high risk ASCVD patient
<130 Optimal for general population
130-159 Near optimal for general population
160-189 Borderline High
190-219 High
>=220 Very High LDL, (calculated) 07/05/2024 14:57:21 72 <= 129 (mg/dL) Final LDL Cholesterol Reference Ra nges (mg/dL):
<70 Target level for high risk ASCVD patient
<100 Optimal for general population
100-129 Near optimal for general population
130-159 Borderline high
160-189 High
>=190 Very high Performing Location [facility] [place] [address] [facility] [address]
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
--- OUTSIDE RECORDS SUMMARY | 2024-11-20 23:54 | External Medical Summary | Summary of Care ---
Author Name Unknown Organization [facility] Address [address] [place] [address] Phone [phone] Care Team Providers Care Welfare Analyst Name Role Phone Thomas LEIVA MD, Zion Mireles Primary Care Provider Encounter Details Date Type Department Care Team (Late st Contact Info) Description 06/21/2024 Population Health External Data Unspecified Department Allergies Active Allergy Reactions Criticality Noted Date Comments Iodinated Contrast Media High 01/02/2024 Other Reaction(s): facial swelling [facility] 08/04/19 Other Allergy (See Comments) 09/07/[address] Contrast Penicillins Anaphylaxis High 09/10/1999 documented as of this encounter (statuses as of 06/25/2024) Medications Medication Sig Dispensed Refills Start Date [...] before bedtime. 270 Tablet 03/30/2024 Active Nystatin 995321 UNIT/GM External Powder (Nystop) Apply 1 Dose [...] Subcutaneous Solution Auto-injector (Semaglutide-Weight Management)Indication s:Atherosclerosis of [place] coronary artery of [place] heart without angina pectoris,Arterioscler osis of abdominal [...] needed for anxiety 270 Tablet 06/18/2024 Active documented as of this encounter (statuses as of 06/25/2024) Active Problems Problem Noted Date Diagnosed Date [...] rupture 03/04 Atherosclerosis of coronary artery of [place] heart without angina pectoris 03/22/2023 History of [...] as of this encounter (statuses as of 06/25/2024) Resolved Problems Problem Noted Date Diagnosed Date [...] monitor. BP Readings from Last 4 Encounters: 12/01/23 140/80 09/02/23 140/80 07/06/23 110/64 06/22/23 115/60 [...] as of this encounter (statuses as of 06/25/2024) Immunizations Name Administration Dates Next Due COVID-19 [...] Description 06/28/2024 4:00 PM EDT Home Visit [facility] at [facility] [address] [place] [address] Jasmine Jones RN [address] [place] [address] 07/05/2024 2:20 PM EDT Office Visit Family Practice [facility] [address] [facility] [place] [address] Daniela Xavier MD [address] [facility] [place] [place] [address] 07/11/2024 12:30 PM EDT Nutrition Services Nutrition & Weight Management, [facility] [address] [place] [address] Manisha Gee RDN [address] [place] [address] 03/08/2025 3:00 PM EDT Office Visit Nephrology, [facility] [address] [facility] [place] [address] Zahira Edward MD [address] [facility] [place] [address] 05/30/2025 10:30 AM EDT Home Visit Care at Home [address] [place] [address] Amber Goldman PA-C [address] [place] [address] Scheduled Procedures Name Priority Associated Diagnoses Date/Ti [...] D LEVEL ONCE IN A LIFETIME-USE SMARTSET# [id number] Completed 02/07/2023, 12/07/2017, 05/03/2013, Additional history exists [...] Relationship Healthcare Agent Relationship Communication Timothy "Garfield" [facility] C are Installer Inspector Final (appointed verbally by patient or by statute hierarchy) Care Teams Welfare Analyst Relationship Specialty Start Date End Date Zion Guzman III, MD [address] [place] [address] PCP - General 05/17/1996 documented as of this encounter
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
--- OUTSIDE RECORDS SUMMARY | 2024-11-20 23:55 | External Medical Summary | Summary of Care ---
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 Hepatitis A (Adult > 18 yrs) 02/03/1997, 07/29/1998 Hepatitis B Vaccine 07/29/1998, 09/01/1998, 02/03/1999 Pneumococcal Conjugate Vacc, 13 Valent (Prevnar) 11/16/2019 Pneumococcal Polysaccharide PPV23 (Pneumovax) 03/05/2010, 12/16/2021 RSV Vac., Bivalent, Perfusion F, Pf,0.5 Ml (Abrysvo) 09/14/2023 Season Influenza, Quad, PF, Adjuvanted, 65+ Yrs, IM (FLUAD) 06/16/2020 Seasonal Influenza Virus Vaccine, Unspecified Formulation 10/12/2022, 07/06/2023 Seasonal Influenza, PF, 6 M & above, IM , (FluLaval or Fluzone) 07/31/2017, 09/04/2018, 08/14/2019 Seasonal Influenza, QUAD, with Preserv, 6 mons & Above, 0.5 mL, IM 11/15/2021 Seasonal Influenza, Quadrivalent Hd (Fluzone Hd) 10/12/2022, 07/06/2023 Seasonal Influenza, Trivalent, (IIV3), with Preserv, (Fluzone) 08/03/2009, 09/08/2010, 06/14/2011, 07/03/2012, 12/13/2013 TD - Tetanus/Diptheria (ADULT) 03/01/1996 TD, Preservative Free 11/16/2017 TDAP, Age 7 and older, IM (Adacel) 11/01/2006 Zoster Vaccine Recombinant (Shingrix) 10/12/2022, 11/16/2022 Preventative Plan: Mammogram (Every 2 years for women 50-74 years of age): 04/18/24 see above Pap Smear (every 3 years): 04/02/2010 Diabetes (Fasting plasma glucose every 3 years): Hemoglobin AIC Results: Lab Results Component Value Date/Time HEMOGLOBIN A1C - [facility] 5.6 02/07/2023 11:12 AM HEMOGLOBIN A1C - [facility] 5.8 (H) 09/09/2021 01:06 PM HEMOGLOBIN A1C - [facility] 5.7 (H) 08/14/2019 03:12 PM HEMOGLOBIN A1C - [facility] 5.3 06/30/2012 08:55 AM HEMOGLOBIN A1C - [facility] 5.6 07/05/2008 07:08 AM Lipid Testing (Every 5 years): Lipid Panel Results: Results for orders placed or performed in visit on 05/15/24 LIPID PANEL WITHOUT DIRECT LDL Result Value Ref Range Triglycerides 102 <=174 mg/dL Cholesterol 129 <200 mg/dL HDL Cholesterol 46 (L) >49 mg/dL Non-HDL Cholesterol 83 <=159 mg/dL LDL Cholesterol 63 <=129 mg/dL Results for orders placed or performed in visit on 02/07/23 LIPID PANEL WITH DIRECT LDL IF TG IS HIGH Result Value Ref Range Triglycerides 76 <=174 mg/dL Cholesterol 160 <200 mg/dL HDL Cholesterol 54 >49 mg/dL Non-HDL Cholesterol 106 <=159 mg/dL LDL Cholesterol 91 <=129 mg/dL Colonoscopy or other screenin06/26/2019 see above Bone Density (every 2+ years): 12/14/2017 see above Health Maintenance Topic Date Due Alpha-1 Antitrypsin Never done DXA Scan 12/15/2019 *BISPHONATE OR OTHER ACCEPTABLE MEDICATION NEEDED FOR OSTEOPOROSIS (REFER TO SMARTSET #1146) Never done Depression Monitoring 01/13/2024 Albumin/Creatinine Ratio 04/14/2024 Influenza Vaccine (FLU shot) (1) 06/03/2024 COVID-19 Vaccine (3 - 2022- season) 2024 Colorectal Cancer Screening 06/26/2024 GFR 11/15/2024 O2 ASSESSMENT COMPLETED IN PAST YEAR FOR COPD 03/29/2025 Mammogram 04/18/2025 CKD HGB USE SMARTSET 16880 05/15/2025 CKD PHOS USE SMARTSET 77724 05/15/2025 Adult Wellness Visit 05/31/2025 Diabetes Screening 11/21/2026 DTap/Tdap Vaccines (3 - Td or Tdap) 11/16/2027 VITAMIN D LEVEL ONCE IN A LIFETIME-USE SMARTSET# [id number] Completed Hepatitis B Vaccine Completed Zoster Vaccines Completed Pneumococcal Vaccine: 65+ Years Completed MENINGOCOCCAL (MENACTRA/MENVEO) Aged Out HPV (Gardasil) Vaccine Aged Out RETIRED - COLONOSCOPY-EVERY 5 YRS AGES 18-100 Discontinued Review of Systems: Review of Systems Musculoskeletal: Positive for back pain. All other systems reviewed and are negative. Physical Exam: There were no vitals filed for this visit. Pain Screening: Yes - Location: back neck, When: every day, Duration: constant, Aggravating Factors: activity , Relieved by: marijuana Pain Scale: 4 out of 10 There is no height or weight on file to calculate BMI. Physical Exam Constitutional: Appearance: She is obese. HENT: Head: Normocephalic and atraumatic. Eyes: Extraocular Movements: Extraocular movements intact. Cardiovascular: Rate and Rhythm: Normal rate and regular rhythm. Heart sounds: No murmur heard. Pulmonary: Effort: Pulmonary effort is normal. Breath sounds: Normal breath sounds. Abdominal: General: Bowel sounds are normal. Palpations: Abdomen is soft. Musculoskeletal: General: No swelling. Cervical back: Neck supple. Skin: General: Skin is warm and dry. Neurological: General: No focal deficit present. Mental Status: She is alert and oriented to person, place, and time. Gait: Gait normal. Psychiatric: Mood and Affect: Mood normal. Behavior: Behavior normal. Lab Data: Lab Results Component Value Date/Time BUN - [facility] 16 11/21/2023 10:11 AM BUN - [facility] 8 12/07/2017 12:58 PM Lab Results Component Value Date/Time CREATININE - [facility] 0.7 05/15/2024 08:34 AM CREATININE - [facility] 0.5 12/07/2017 12:58 PM CREATININE ARLET 104 12/12/2018 02:39 PM CREATININE, RANDOM URINE - [facility] 41 04/14/2023 01:44 PM CREATININE, RANDOM URINE - [facility] 61 12/07/2017 01:07 PM CREATININE-OUTSIDE LAB 0.83 06/03/2020 12:00 AM Lab Results Component Value Date/Time GLUCOSE - [facility] 118 11/21/2023 10:11 AM GLUCOSE - [facility] 103 12/07/2017 12:58 PM GLUCOSE URINE, POCT - [facility] Negative 02/05/2023 12:00 AM GLUCOSE, URINE - [facility] Negative 04/14/2023 01:45 PM GLUCOSE, URINE - [facility] NEGATIVE 08/14/2019 04:10 PM GLUCOSE-OUTSIDE LAB 101 (A) 06/03/2020 12:00 AM No components found for: "[id number]" Lab Results Component Value Date/Time LDL (CALCULATED)-OUTSIDE LAB 88.0 08/19/2017 12:00 AM LDL CHOLESTEROL (CALCULATED) - [facility] 63 05/15/2024 08:34 AM LDL CHOLESTEROL (CALCULATED) - [facility] 137 (H) 12/10/2013 08:29 AM LDL CHOLESTEROL (DIRECT MEASURE) - [facility] NOT APPLICABLE 12/10/2013 08:29 AM No results found for: "MICROALBUMIN" Assessment/Plan: Lashawn was seen today for adult annual wellness visit, subsequent visit. Diagnoses and all orders for this visit: ADJ DISORDER W/DEPRES MOOD Aneurysm of ascending aorta without rupture (HCC) Arteriosclerosis of abdominal aorta (HCC) Atherosclerosis of [place] coronary artery of [place] heart without angina pectoris Thoracic aorta atherosclerosis (HCC) Chronic gastritis without bleeding, unspecified gastritis type COPD, mild (HCC) Degeneration of thoracic intervertebral disc Degenerative disc disease, lumbar Dyslipidemia, goal LDL below 130 GENERAL OSTEOARTHROSIS, right knee Generalized anxiety disorder Grade I diastolic dysfunction High risk for fracture due to osteoporosis by DEXA scan History of colon polyps History of compression fracture of spine HTN, goal below 140/90 Hypertensive left ventricular hypertrophy, without heart failure Spondylosis of lumbosacral region without myelopathy or radiculopathy Major depressive disorder, recurrent, moderate (HCC) MEDICATION USE AGREEMENT PTSD (post-traumatic stress disorder) Pulmonary hypertension (HCC) Medical marijuana use At risk for falls PLAN Pt reports no active issues or adverse effects to the established treatment plan. No changes at this time. Strongly advised to contact her care team if changes occur. Care Planning (3+ Personal and/or Medical Goals): Eat healthy Maintain independence Maintain current activity level Treatment Plan: Patient continues to work on their progress to the goals set by themselves and their PCP Follow Up/Handouts: CAHAWV f/u one year I spent a total of 40-54 minutes (exact time 40 mins) on the date of service in preparation, delivery, and documentation of the care provided to Lashawn Enciso excluding any time spent in the performance of separately billed services. Amber Goldman PA-C documented in this encounter Plan of Treatment Upcoming Encounters Date Type Department Care Team (Late st Contact Info) Description 06/20/2024 11:00 AM EDT [facility] Visit [facility] [address] [facility] [place] [address] Jasmine Jones RN [address] [place] [address] 06/26/2024 1:40 PM EDT Office Visit Family Practice [facility] [address] [facility] [place] [address] Daniela Xavier MD [address] [facility] [place] [address] 07/11/2024 12:30 PM EDT Nutrition Services Nutrition & Weight Management, [facility] [address] [facility] [place] [address] Manisha Gee RDN [address] [place] [address] 03/08/2025 3:00 PM EDT Office Visit Nephrology, [facility] [address] [facility] [place] [address] Zahira Edward MD [address] [facility] [place] [address] 05/30/2025 10:30 AM EDT Home Visit [facility] at Home [address] [place] [address], [place] [id number] Amber Goldman PA-C [address] [place], [place] [id number] Scheduled Procedures Name Priority Associated Diagnoses Date/Ti me COLONOSCOPY FLEXIBLE PROXIMAL DIAGNOSTIC Recall History of colon polyps Health Maintenance Due Date Last Done Comments Alpha-1 Antitrypsin 1972 Cologuard 1999 Fecal Occult Blood Test 1999 Sigmoidoscopy 1999 DXA Scan 12/15/2019 12/14/2017 *BISPHONATE OR OTHER ACCEPTABLE MEDICATION NEEDED FOR OSTEOPOROSIS (REFER TO SMARTSET #1146) 10/15/2022 Depression Monitoring 01/13/2024 01/12/2023 Albumin/Creatinine Ratio 04/14/2024 04/14/2023 COVID-19 Vaccine (3 - season) 2024 03/14/2021, 02/08/2021 Influenza Vaccine (FLU shot) (#1) 2024 07/06/2023, 07/06/2023, 10/12/2022, Additional history exists Colonoscopy 06/26/2024 06/26/2019, 06/04, 09/30/2008 Colorectal Cancer Screening 06/26/2024 GFR 11/15/2024 05/15/2024, 11/03, 09/14/2023, Additional history exists O2 ASSESSMENT COMPLETED IN PAST YEAR FOR COPD 03/29/2025 03/29/2024 Mammogram 04/18/2025 04/18/2024, 04/02, 05/01/2019, Additional history exists CKD HGB USE SMARTSET 37117 05/15/202505/15, 09/14/2023, 02/07/2023, Additional history exists CKD PHOS USE SMARTSET 84601 05/15/202505/03, 06/17/2023, 06/03/2020, Additional history exists Adult Wellness Visit 05/31/2025 05/31/2024, 05/26/20 23 Diabetes Screening 11/21/2026 11/21/2023, 1 11/15/2022, 07/12/2023, Additional history exists DTap/Tdap Vaccines (3 - Td or Tdap) 11/16/2027 11/16/2017, 11/01/2006, 03/01/1996 Hepatitis B Vaccine Completed 02/03/1999, 09/01/1998, 07/29/1998 RETIRED - COLONOSCOPY-EVERY 5 YRS AGES 18-100 Discontinued 06/26/2019, 06/26/2019, 09/30/2008 Pneumococcal Vaccine: 65+ Years Completed 12/16/2021, 11/16/2019, 03/05/2010 Zoster Vaccines Completed 11/16/2022, 10/12/2022 VITAMIN D LEVEL ONCE IN A LIFETIME-USE SMARTSET# [id number] Completed 02/07/2023, 12/07/2017, 05/03/2013, Additional history exists HPV (Gardasil) Vaccine Aged Out No lo nger eligible based on patient's age to complete this topic MENINGOCOCCAL (MENACTRA/MENVEO) Aged Out No longer eligible based on patient's age to complete this topic documented as of this encounter Medical Devices Not on filedocumented as of this encounter Visit Diagnoses Diagnosis ADJ DISORDER W/DEPRES MOOD- Primary Adjustment disorder with depressed mood Aneurysm of ascending aorta without rupture (HCC) Arteriosclerosis of abdominal aorta (HCC) Atherosclerosis of aorta Atherosclerosis of [place] coronary artery of [place] heart without angina pectoris Thoracic aorta atherosclerosis (HCC) Atherosclerosis of aorta Chronic gastritis without bleeding, unspecified gastritis type COPD, mild (HCC) Chronic airway obstruction, not elsewhere classified Degeneration of thoracic intervertebral disc Degeneration of thoracic or thoracolumbar intervertebral disc Degenerative disc disease, lumbar Degeneration of lumbar or lumbosacral intervertebral disc Dyslipidemia, goal LDL below 130 Other and unspecified hyperlipidemia GENERAL OSTEOARTHROSIS, right knee Generalized osteoarthrosis, unspecified site Generalized anxiety disorder Grade I diastolic dysfunction High risk for fracture due to osteoporosis by DEXA scan Osteoporosis, unspecified History of colon polyps Personal history of colonic polyps History of compression fracture of spine Personal history of traumatic fracture HTN, goal below 140/90 Unspecified essential hypertension Hypertensive left ventricular hypertrophy, without heart failure Spondylosis of lumbosacral region without myelopathy or radiculopathy Lumbosacral spondylosis without myelopathy Major depressive disorder, recurrent, moderate (HCC) Major depressive disorder, recurrent episode, moderate MEDICATION USE AGREEMENT PTSD (post-traumatic stress disorder) Posttraumatic stress disorder Pulmonary hypertension (HCC) Other chronic pulmonary heart diseases Medical marijuana use Encounter for long-term (current) use of other medications At risk for falls Personal history of fall documented in this encounter Advance Directives Healthcare Agents on File Name Relationship Healthcare Agent Relationship Communication [facility] [employer] Sherpas are [employer] (appointed verbally by patient or by statute hierarchy) Care Teams 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
[2024-11-21] MEDS: oxyCODONE HCL IR 5 MG TAB (IMMEDIATE RELEASE) PO PRN (00:09)
[2024-11-21] MEDS: ZOLPIDEM TARTRATE 5 MG TAB PO STA (02:47)
[2024-11-21] MEDS: ATORVASTATIN 20 MG TAB PO SCH (08:00)
[2024-11-21] MEDS: buPROPion XL 150 MG TABCR PO SCH (08:00)
[2024-11-21] MEDS: DULoxetine HCL 60 MG CAP PO SCH (08:00)
[2024-11-21] MEDS: TORSEMIDE 10 MG TAB PO SCH (08:00)
[2024-11-21] MEDS: amLODIPine BESYLATE 5 MG TAB PO SCH (08:00)
[2024-11-21] MEDS: UMECLIDINIUM/VILANTEROL 62.5/25MCG 7 PUFFS/INHALER INH SCH (08:01)
[2024-11-21] MEDS: LIDOCAINE 1% LOCAL 20 ML VIAL INJ ONE ×2 (10:53→10:54)
[2024-11-21] MEDS: methylPREDNISolone acetate 40 MG/ML VIAL IA ONE ×2 (10:54→10:55)
--- NOTE | 2024-11-21 10:54 | XRay Report ---
XR chest 1V portable CLINICAL HISTORY: Hypoxia COMPARISON STUDY: 08/15/2023 FINDINGS: Single view portable chest demonstrates a minor discoid atelectasis at the right lung base and is otherwise unchanged since the prior study. There is no focal airspace opacity or pleural effus ion. The heart and pulmonary vascularity are unremarkable. Postsurgical changes of a mid thoracic and cervical fusion are noted. IMPRESSION: Right basilar discoid atelectasis; no additional abnormalities noted. ACT 112: Negative or not required by law. Electronically signed by: Jasmine Ng M.D. 11/21/2024 10:53 AM
--- NOTE | 2024-11-21 11:00 | XRay Report ---
XR hip 1V RT w pelvis CLINICAL HISTORY: Right hip pain no trauma COMPARISON: None FINDINGS: AP pelvis and 2 views of the right hip demonstrate mild osteoarthritic change at the right hip joint. There is no malalignment or fracture. There is no femoral head flattening or sclerosis. T here is no periarticular calcification. IMPRESSION: Very mild changes of DJD; otherwise negative. ACT 112: Negative or not required by law. Electronically signed by: Jasmine Ng M.D. 11/21/2024 10:58 AM
[2024-11-21] MEDS: hydrOXYzine HCl 25 MG TAB PO PRN (11:27)
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
[2024-11-21 12:42] VITALS: RESP 18
--- NOTE | 2024-11-21 14:03 | Hospitalist Progress Note ---
Date of Service November 21, 2024 Assessment & Plan (1) Arthritis of left glenohumeral joint: (2) Rotator cuff tear arthropathy of left shoulder: (3) Osteoarthritis of left shoulder: (4) Ambulatory dysfunction: (5) Chronic obstructive bronchitis with pulmonary emphysema: (6) Essential hypertension: (7) Depression: (8) Anxiety: Plan Patient 69-year-old female presents with acute exacerbation of chronic left shoulder osteoarthritis, rotator cuff arthropathy. Severe pain limits her ability to ambulate safely with her walker and is at high risk for falls at home and further injury. Left shoulder pain End-stage osteoarthritis of her left glenohumeral joint Right hip pain --Shoulder X ray:No acute osseous abnormality evident. Severe glenohumeral joint space loss, worsened from prior. Mild to moderate acromioclavicular joint space loss similar to prior. --S/P cortisone injection Pain control Fall precautions PT OT as able Appreciate orthopedics input Will recommend follow-up with orthopedics on discharge Hypoxia H/O COPD Likely due to atelectasis No signs of COPD exacerbation --CXR:Right basilar discoid atelectasis; no additional abnormalities noted. Incentive spirometry Could have underlying sleep apnea Will recommend outpatient polysomnography Continue home inhalers Mood disorder Continue home medications Hypertension Continue amlodipine Hyperlipidemia Continue Lipitor Morbid obesity BMI 41 Needs counseling DVT Px: Heparin SQ CODE STATUS Full code Disposition PT OT prior to discharge Admission and Anticipated Discharge Date Admission Date: November 20, 2024 Subjective Patient is seen and examined at bedside Left shoulder pain is much improved after joint injection Patient anxious intermittently Denies any chest pain, dyspnea, nausea, vomiting, abdominal pain, cough Review of Systems Review of Systems: All systems reviewed & are unremarkable except as noted in Subjective Physical Exam Physical Exam: Physical Exam: Vitals signs as noted above General Appearance:Obese, no apparent distress Head: normocephalic, Atraumatic Eyes: normal inspection, EOMI Neck: supple, Trachea midline Respiratory/Chest: Normal breath sounds, CTA, No accessory muscle use Cardiovascular: S1, S2, No murmur Abdomen/GI:Soft, Non tender, Bowel sounds present Extremities/Musculoskeletal:normal inspection, no edema, decreased to left shoulder ROM, mild tender on palpation Neurologic/Psych:AAOX3, grossly no focal neurological deficits Skin: normal color, warm Results & Data Results & Data Vital Signs (Past 12 Hours) Vital Signs Temp Pulse Pulse Pulse Resp BP BP 11/21/24 12:09 36.5 C 64 18 95/59 L 11/21/24 10:00 69 20 11/21/24 08:00 67 16 113/76 11/21/24 07:12 56 L 11/21/24 05:30 56 L 11/21/24 04:22 54 L 14 125/63 Pulse Ox O2 Del Method O2 Flow Rate 11/21/24 12:09 94 Nasal Cannula 2 11/21/24 10:00 95 Nasal Cannula 2 11/21/24 08:00 97 Nasal Cannula 2 11/21/24 07:12 11/21/24 05:30 11/21/24 04:22 95 Nasal Cannula 2 Laboratory Results Short CBC 11/20/24 Range/Units 18:27 WBC 7.92 (4.8-10.8) K/ul Hgb 15.4 (12.0-16.0) g/dl Hct 44.8 (37.0-47.0) % Plt Count 238 (130-400) K/uL BMP 11/20/24 18:27 Sodium 132 L Potassium 3.8 Chloride 96 L Carbon Dioxide 30 BUN 11 Creatinine 0.65 Glucose 80 Calcium 9.5 Liver Function 11/20/24 Range/Units 18:27 Total Bilirubin 0.4 (0.2-1.0) mg/dl AST 16 (13-39) U/L ALT 13 (7-52) U/L Alkaline Phosphatase 65 (34-104) U/L Albumin 4.6 (3.4-5.0) gm/dl
[2024-11-21] MEDS: HEPARIN SOD 5,000 UNIT/0.5 ML VIAL SQ SCH (20:41)
[2024-11-21] MEDS: MAGNESIUM HYDROXIDE SUSP 30 ML UDC PO PRN (20:41)
[2024-11-22] MEDS: DICLOFENAC SOD 1% GEL 100 GM TUBE EXT PRN (03:09)
[2024-11-22 07:33] VITALS: BP 133/76; PULSE 63; TEMP 97.9; O2SAT 95
[2024-11-22 08:03] LABS: BUN Creatinine Ratio 18.6 (10-20); Calcium 9.1 mg/dl (8.6-10.3); Creatinine Clr Calc Pharmacy 100.4 ml/min; Potassium 4.3 mmol/L (3.5-5.1)
[2024-11-22 08:21] LABS: Hematocrit (blood only) 40.7 % (37.0-47.0); Hemoglobin 13.9 g/dl (12.0-16.0); Mean Corpuscular Hemoglobin 29.2 pg (25.0-34.0); Mean Corpuscular Hgb Conc 34.2 g/dL (32.0-36.0); Mean Corpuscular Volume 85.5 fL (80.0-100.0); Mean Platelet Volume 9.1 fL (9.4-12.4); Platelet Count 258 K/uL (130-400); RDW Coefficient of Variation 13.2 % (11.5-14.5); RDW Standard Deviation 41.1 fL (36.4-46.3); Red Blood Count 4.76 M/uL (4.20-5.40); White Blood Count 10.33 K/ul (4.8-10.8)
[2024-11-22] MEDS: CHOLECALCIFEROL 25 MCG (1000 UNITS) TAB PO SCH (10:01)
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
--- NOTE | 2024-11-22 11:52 | Orthopedic Progress Note ---
Date of Service November 22, 2024 Assessment & Plan (1) Right hip pain: Plan: The patient was educated regarding today's findings. Conservative care measures were discussed. The cortisone injection has worked very well for her hip. She does not seem to have much relief yet from the shoulder injection. She was informed that it may take another day or 2 before her relief starts. She can do activities as tolerated, weight-bear as tolerated. Use the sling as needed. She can use a walker to assist with ambulation. Ice to the right hip as needed for pain or swelling. Follow-up in our office as needed for the right hip. If her symptoms persist may consider formal physical therapy. She could consider another injection in the hip and shoulder in approximately 4 months. She can do [id number] anti-inflammatories, topical agents like Voltaren gel or IcyHot. She can use Tylenol for pain control. She may consider surgical intervention in the left shoulder if symptoms persist. (2) Arthritis of left glenohumeral joint: Admission and Anticipated Discharge Date Admission Date: November 20, 2024 Subjective This 69-year-old female is seen today in her room. She is tearful today. The patient received cortisone injections in her left shoulder and right trochanteric bursa yesterday. She states the shoulder remains painful. She has no pain in the hip. She is currently laying in bed and has her sling in place. No new complaints. She states she would like to go home, but cannot be discharged without pain medication. Physical Exam Physical Exam: General: Well-developed, well-nourished, elderly female, in no acute distress. She appears in some discomfort. Periodically crying while laying in bed. Skin: Warm and dry with good turgor. No rashes. No ecchymosis or erythema. Musculoskeletal: Right hip has supple motion for both flexion as well as rotation. This is both passive and active. She has no discomfort with palpation over the IT band or greater trochanter. No pain with palpation across the inguinal crease. Intact motor function of the right knee and ankle. Left shoulder evaluation reveals no obvious asymmetry or deformity. She has full motion of her fingers, wrist, and elbow. There is limited passive motion of the left shoulder with forward flexion of around 30 degrees and abduction also of around 30 degrees. Actively she has minimal motion of the shoulder secondary to complaints of pain. Interpretation to her belly. External rotation to around 10 degrees beyond neutral. Neurologic: Gross sensation is intact across the upper and lower extremities by soft touch. Results & Data Vital Signs (Past 12 Hours) Vital Signs Temp Pulse Resp BP Pulse Ox O2 Del Method 11/22/24 07:32 36.6 C 63 18 133/76 95 Room Air
--- NOTE | 2024-11-22 13:02 | Hospitalist Progress Note ---
Date of Service November 22, 2024 Assessment & Plan (1) Arthritis of left glenohumeral joint: (2) Rotator cuff tear arthropathy of left shoulder: (3) Osteoarthritis of left shoulder: (4) Ambulatory dysfunction: (5) Chronic obstructive bronchitis with pulmonary emphysema: (6) Essential hypertension: (7) Depression: (8) Anxiety: Plan Patient 69-year-old female presents with acute exacerbation of chronic left shoulder osteoarthritis, rotator cuff arthropathy. Severe pain limits her ability to ambulate safely with her walker and is at high risk for falls at home and further injury. Left shoulder pain End-stage osteoarthritis of her left glenohumeral joint Right hip pain --Shoulder X ray:No acute osseous abnormality evident. Severe glenohumeral joint space loss, worsened from prior. Mild to moderate acromioclavicular joint space loss similar to prior. --S/P cortisone injection Pain control Fall precautions PT OT: Can return home Appreciate orthopedics input Will recommend follow-up with orthopedics on discharge Plan to be discharged home today Hypoxia H/O COPD Likely due to atelectasis No signs of COPD exacerbation --CXR:Right basilar discoid atelectasis; no additional abnormalities noted. Incentive spirometry Could have underlying sleep apnea Will recommend outpatient polysomnography Continue home inhalers Weaned off of supplemental oxygen Saturating well on room air Mood disorder Continue home medications Hypertension Continue amlodipine Hyperlipidemia Continue Lipitor Morbid obesity BMI 41 Needs counseling DVT Px: Heparin SQ CODE STATUS Full code Disposition Home Admission and Anticipated Discharge Date Admission Date: November 20, 2024 Subjective Patient is seen and examined at bedside Reports shoulder pain No other complaints Denies any chest pain, dyspnea, nausea, vomiting, abdominal pain, cough Plan to be discharged home today Review of Systems Review of Systems: All systems reviewed & are unremarkable except as noted in Subjective Physical Exam Physical Exam: Physical Exam: Vitals signs as noted above General Appearance:Obese, no apparent distress Head: normocephalic, Atraumatic Eyes: normal inspection, EOMI Neck: supple, Trachea midline Respiratory/Chest: Normal breath sounds, CTA, No accessory muscle use Cardiovascular: S1, S2, No murmur Abdomen/GI:Soft, Non tender, Bowel sounds present Extremities/Musculoskeletal:normal inspection, no edema, decreased to left shoulder ROM, mild tender on palpation Neurologic/Psych:AAOX3, grossly no focal neurological deficits Skin: normal color, warm Results & Data Results & Data Vital Signs (Past 12 Hours) Vital Signs Temp Pulse Resp BP Pulse Ox O2 Del Method 11/22/24 07:32 36.6 C 63 18 133/76 95 Room Air Laboratory Results Short CBC 11/22/24 11/22/24 Range/Units 07:05 07:57 WBC Cancelled 10.33 Hgb Cancelled 13.9 Hct Cancelled 40.7 Plt Count Cancelled 258 BMP 11/22/24 07:05 Sodium 130 L Potassium 4.3 Chloride 93 L Carbon Dioxide 31 BUN 11 Creatinine 0.59 L Glucose 107 H Calcium 9.1
--- NOTE | 2024-11-22 13:12 | Discharge Summary ---
Date of Service November 22, 2024 Admission HPI Per Admitting Provider Patient is a 69-year-old female who presents to the emergency room with above complaint. She has known severe osteoarthritis of the left shoulder. She actually had a hospitalization back in January 2024 for similar complaint. At that time she was to pursue outpatient evaluation for possible shoulder surgery. She had 1 outpatient appointment follow-up with a shoulder injection never had any additional follow-up. Shoulder pain has been getting progressively worse over the last few weeks and acutely exacerbated when she struck her shoulder against a doorway when ambulating with her walker. The pain was so severe that she came to the emergency room for relief. In the emergency room imaging was unremarkable for acute fracture. However her pain was not controlled with oral or IV pain medication. This severe pain significantly limited her ability to use her walker and to walk safely and there was concern that should she return home she would be at increased risk for further injury. She was referred to our service for further evaluation. Time my evaluation the patient still in a fair amount of shoulder pain. She states otherwise she has been feeling well. No fever or chills, no shortness of breath, no chest pain, no new problems with the bowels or bladder. No new no swelling in her hands arms legs or feet. Appetite has been good. Admission Exam Per Admitting Provider Constitutional: Alert, nontoxic HEENT: Mucous membranes moist. Lungs: Clear to auscultation, decreased, no wheezes rales or rhonchi CV: S1-S2, regular Abdomen: Soft, nontender, nondistended Extremities: No significant edema Neuro: No focal deficits Psych: Cooperative, normal mood Musculoskeletal: Significant decreased range of motion of the left shoulder with significant pain to palpation and any type of movement. Some crepitus with motion testing. Principal Diagnosis End-stage osteoarthritis of her left glenohumeral joint Transient hypoxia Vitamin D deficiency Discharge Data Allergies Allergy/AdvReac Type Severity Reaction Status Date / Time Iodinated Contrast Media Allergy Intermediate facial Verified 01/02/24 15:59 swelling [facility] 08/04/19 Penicillins Allergy Unknown SWELLING Verified 01/02/24 15:59 [facility] Consultations 11/20/24 18:59 ED Decision to Admit Stat 11/20/24 20:09 Consult Orthopedic Surgery Stat Procedures Performed Laboratory Results WBC 10.33 K/ul (4.8-10.8) 11/22/24 07:57 RBC 4.76 M/uL (4.20-5.40) 11/22/24 07:57 Hgb 13.9 g/dl (12.0-16.0) 11/22/24 07:57 Hct 40.7 % (37.0-47.0) 11/22/24 07:57 MCV 85.5 fL (80.0-100.0) 11/22/24 07:57 MCH 29.2 pg (25.0-34.0) 11/22/24 07:57 MCHC 34.2 g/dL (32.0-36.0) 11/22/24 07:57 RDW Std Deviation 41.1 fL (36.4-46.3) 11/22/24 07:57 RDW Coeff of Jimi 13.2 % (11.5-14.5) 11/22/24 07:57 Plt Count 258 K/uL (130-400) 11/22/24 07:57 MPV 9.1 fL (9.4-12.4) L 11/22/24 07:57 Immature Gran % (Auto) 0.3 % 11/20/24 18:27 Neut % (Auto) 54.4 % 11/20/24 18:27 Lymph % (Auto) 30.4 % 11/20/24 18:27 [place] % (Auto) 9.0 % 11/20/24 18:27 Eos % (Auto) 5.3 % 11/20/24 18:27 Baso % (Auto) 0.6 % 11/20/24 18:27 Neut # (Auto) 4.31 K/uL (1.40-6.50) 11/20/24 18:27 Lymph # (Auto) 2.41 K/uL (1.20-3.40) 11/20/24 18:27 [place] # (Auto) 0.71 K/uL (0.11-0.59) H 11/20/24 18:27 Eos # (Auto) 0.42 K/uL (0.00-0.50) 11/20/24 18:27 Baso # (Auto) 0.05 K/uL (0.00-0.20) 11/20/24 18:27 Immature Gran # (Auto) 0.02 K/uL (0.01-0.20) 11/20/24 18:27 Absolute Nucleated RBC Cancelled 11/22/24 07:05 Nucleated RBC % (auto) Cancelled 11/22/24 07:05 Platelet Estimate Cancelled 11/22/24 07:05 Sodium 130 mmol/L (136-145) L 11/22/24 07:05 Potassium 4.3 mmol/L (3.5-5.1) 11/22/24 07:05 Chloride 93 mmol/L (98-107) L 11/22/24 07:05 Carbon Dioxide 31 mmol/L (21-32) 11/22/24 07:05 Anion Gap 6 (3-11) 11/22/24 07:05 BUN 11 mg/dl (6-23) 11/22/24 07:05 Creatinine 0.59 mg/dl (0.6-1.2) L 11/22/24 07:05 Est Cr Clr Drug Dosing 100.4 ml/min 11/22/24 07:05 eGFR 96.89 11/22/24 07:05 BUN/Creatinine Ratio 18.6 (10-20) 11/22/24 07:05 Glucose 107 mg/dl (70-99(Fasting)) H 11/22/24 07:05 Calcium 9.1 mg/dl (8.6-10.3) 11/22/24 07:05 Total Bilirubin 0.4 mg/dl (0.2-1.0) 11/20/24 18:27 AST 16 U/L (13-39) 11/20/24 18:27 ALT 13 U/L (7-52) 11/20/24 18:27 Alkaline Phosphatase 65 U/L (34-104) 11/20/24 18:27 Total Protein 7.5 gm/dl (6.0-8.3) 11/20/24 18:27 Albumin 4.6 gm/dl (3.4-5.0) 11/20/24 18:27 Globulin 2.9 gm/dl (2.5-4.0) 11/20/24 18:27 Albumin/Globulin Ratio 1.6 (0.9-2) 11/20/24 18:27 25-OH Vitamin D Total 23.7 ng/ml (30-100) L 11/22/24 07:05 Impressions Shoulder X-Ray 11/20/24 15:47 INDICATION: Left shoulder pain. TECHNIQUE: 3 views of the left shoulder. COMPARISON: Radiograph from 12/27/2023. FINDINGS: No acute fracture or dislocation. No lytic or blastic bony lesions seen. Severe glenohumeral joint space loss, worsened from prior. Mild to moderate acromioclavicular joint space loss similar to prior. Soft tissues appear unremarkable. IMPRESSION: No acute osseous abnormality evident. Severe glenohumeral joint space loss, worsened from prior. Mild to moderate acromioclavicular joint space loss similar to prior. Electronically signed by Dino Chiu 11-20-2024 4:22 PM Chest X-Ray 11/21/24 09:05 XR chest 1V portable CLINICAL HISTORY: Hypoxia COMPARISON STUDY: 08/15/2023 FINDINGS: Single view portable chest demonstrates a minor discoid atelectasis at the right lung base and is otherwise unchanged since the prior study. There is no focal airspace opacity or pleural effusion. The heart and pulmonary vascularity are unremarkable. Postsurgical changes of a mid thoracic and cervical fusion are noted. IMPRESSION: Right basilar discoid atelectasis; no additional abnormalities noted. ACT 112: Negative or not required by law. Electronically signed by: Jasmine Ng M.D. 11/21/2024 10:53 AM Hip/Pelvis X-Ray 11/21/24 10:14 XR hip 1V RT w pelvis CLINICAL HISTORY: Right hip pain no trauma COMPARISON: None FINDINGS: AP pelvis and 2 views of the right hip demonstrate mild osteoarthritic change at the right hip joint. There is no malalignment or fracture. There is no femoral head flattening or sclerosis. There is no periarticular calcification. IMPRESSION: Very mild changes of DJD; otherwise negative. ACT 112: Negative or not required by law. Electronically signed by: Jasmine Ng M.D. 11/21/2024 10:58 AM Hospital Course (1) Arthritis of left glenohumeral joint: (2) Rotator cuff tear arthropathy of left shoulder: (3) Osteoarthritis of left shoulder: (4) Ambulatory dysfunction: (5) Chronic obstructive bronchitis with pulmonary emphysema: (6) Essential hypertension: (7) Depression: (8) Anxiety: Plan Patient 69-year-old female presents with acute exacerbation of chronic left shoulder osteoarthritis, rotator cuff arthropathy. Severe pain limits her ability to ambulate safely with her walker and is at high risk for falls at home and further injury. Left shoulder pain End-stage osteoarthritis of her left glenohumeral joint Right hip pain --Shoulder X ray:No acute osseous abnormality evident. Severe glenohumeral joint space loss, worsened from prior. Mild to moderate acromioclavicular joint space loss similar to prior. --S/P cortisone injection Pain control Fall precautions PT OT: Can return home Appreciate orthopedics input Will recommend follow-up with orthopedics on discharge Plan to be discharged home today Hypoxia H/O COPD Likely due to atelectasis No signs of COPD exacerbation --CXR:Right basilar discoid atelectasis; no additional abnormalities noted. Incentive spirometry Could have underlying sleep apnea Will recommend outpatient polysomnography Continue home inhalers Weaned off of supplemental oxygen Saturating well on room air Mood disorder Continue home medications Hypertension Continue amlodipine Hyperlipidemia Continue Lipitor Vitamin D deficiency Started on vitamin D supplements Morbid obesity BMI 41 Needs counseling DVT Px: Heparin SQ CODE STATUS Full code Disposition Home Total Time Total Time Spent Total Time Spent (In Minutes): 47 minutes Discharge Plan Discharge Items Patient Disposition: Home - Self-Care Reason For Visit: SHOULDER PAIN Discharge Diagnosis: End-stage osteoarthritis of her left glenohumeral joint Transient hypoxia Vitamin D deficiency Condition on Discharge: Good Activity: Per Instructions section Exercise/Sports: Gradually increase as tolerated Non-emergency contact: Primary Care Provider and Surgeon Call non-emergency contact if: you have any medication questions, your symptoms worsen, your pain is concerning for you and you have a fever Follow-up/Referrals: [facility] [Provider Group] (as needed in 3-4 months) Zion Guzman MD [Primary Care Provider] - (Date & Time 11/28/2024 11:00 AM Provider: Zion Guzman III, MD [facility] ) Diet: Heart Healthy Addtl Attending Provider Instructions: Follow-up with your primary care physician on 11/28/2024 11:00 AM Follow-up with your orthopedic surgeon as recommended -- Get outpatient sleep study (polysomnography) as you could have underlying sleep apnea. Discuss with your physician for further recommendations Seek immediate medical attention if your symptoms reoccur or worsen Please take all medications as instructed on discharge list below. Please call if you have any questions or problems. You can reach a [facility] hospitalist on duty at [facility] 24 hours a day by calling [phone] [facility] [employer] Provider Instructions: Orthopedics instructions: - Range of motion activities of your left shoulder as tolerated. -Sling left upper extremity as needed for comfort. -Ice and/or heat as needed for pain or swelling. -Could follow-up in 3 to 4 months for repeat injection of the left glenohumeral joint. Will need to call [phone] to schedule appointment. -Weight-bear as tolerated right lower extremity. -Full range of motion of your right lower extremity joints as tolerated. -Ambulation as tolerated with the assistance of a walker. As guided by the physical therapist. -IT band stretches stop by your physical therapist as needed. -Ice and/or heat to the right hip as needed for pain. -Follow-up with [facility] as needed. Pending Studies at Discharge: No Stand-Alone Forms: My [facility], Smoking Cessation Medications and DC Order Prescriptions: New diclofenac sodium [Voltaren Arthritis Pain] 1 % Gel 2 g EXT BID PRN (Reason: pain) Qty: 100 0RF oxycodone 5 mg Tablet 5 mg PO Q8H PRN (Reason: pain) Qty: 15 0RF cholecalciferol (vitamin D3) 25 mcg (1,000 unit) Capsule 25 mcg PO QAM Qty: 30 1RF Continued baclofen 10 mg Tablet 10 mg PO TID PRN (Reason: Muscle Spasm/Pain) atorvastatin 20 mg tablet 20 mg PO QAM acetaminophen [Tylenol Extra Strength] 500 mg Tablet 1,000 mg PO Q6 PRN (Reason: Pain) polyethylene glycol 3350 [Miralax] 17 gram powder in packet 17 g PO QAM PRN (Reason: Constipation) hydroxyzine HCl 50 mg tablet 50 mg PO QID PRN (Reason: Anxiety) Rx Instructions: morning,noon,evening and bedtime trazodone 150 mg tablet 150 mg PO HS pregabalin 100 mg capsule 100 mg PO TID Rx Instructions: take in morning,noon and bedtime ondansetron 4 mg tablet,disintegrating 4 mg PO Q8 PRN (Reason: Nausea) Rx Instructions: allow to dissolve on tongue albuterol sulfate 90 mcg/actuation HFA aerosol inhaler 1 inh inhalation Q6H PRN (Reason: shortness of breath or wheezing) Qty: 8.5 0RF amlodipine 2.5 mg tablet 2.5 mg PO QAM torsemide 5 mg tablet 5 mg PO QAM nystatin 100,000 unit/gram powder 1 applic TOPICAL TID PRN (Reason: RASH) ketoconazole 2 % cream 1 applic TOPICAL BID PRN (Reason: RASH) bupropion HCl 300 mg tablet extended release 24 hr 300 mg PO QAM hydrochlorothiazide 12.5 mg tablet 12.5 mg PO QAM Anoro Ellipta 62.5-25 mcg/actuation blister with device 1 inh inhalation DAILY PRN (Reason: Shortness Of Breath Or Wheezing) Rx Instructions: ordered routine...takes prn duloxetine 60 mg capsule,delayed release(DR/EC) 120 mg PO QAM albuterol sulfate 2.5 mg /3 mL (0.083 %) solution for nebulization 2.5 mg inhalation Q4H PRN (Reason: Shortness Of Breath Or Wheezing) Discharge Orders: Discharge Order (Routine); Ordered 11/22/24 Ordered By: Teja Ludwig Admission Data Admit Date/Time: 11/20/24 20:09 Attending Provider: Teja Ludwig Admit Provider: Albert Costa Primary Care Provider: Zion Guzman Other Providers: Akil Gray; Albert Costa
== END 2024-11-22 14:25 | disposition home or self-care (01) ==
LOC: EDINP 15:02 → ED 15:02 → SUATTDRO 20:09 → 3W 20:28
DX: M19.012 Primary osteoarthritis, left shoulder; F41.9 Anxiety disorder, unspecified; M75.122 Complete rotator cuff tear or rupture of left shoulder, not specified as traumatic; E66.01 Morbid (severe) obesity due to excess calories; E78.5 Hyperlipidemia, unspecified; Z79.899 Other long term (current) drug therapy; Z91.041 Radiographic dye allergy status; I10 Essential (primary) hypertension; Z68.41 Body mass index [BMI] 40.0-44.9, adult; F32.A Depression, unspecified; F17.210 Nicotine dependence, cigarettes, uncomplicated; Z86.718 Personal history of other venous thrombosis and embolism; E55.9 Vitamin D deficiency, unspecified; Z88.0 Allergy status to penicillin; R26.89 Other abnormalities of gait and mobility; J44.9 Chronic obstructive pulmonary disease, unspecified

== ENCOUNTER 2025-04-02 05:15 | Observation (INO) ==
--- NOTE | 2025-03-07 15:51 | PAT Medication Instructions ---
Medication Instructions Date of Service March 07, 2025 Home Medications Medication Instructions Recorded albuterol sulfate 90 mcg/actuation 1 inh inhalation Q6H PRN shortness 09/24/22 aerosol inhaler of breath or wheezing #8.5 grams cholecalciferol (vitamin D3) 25 25 mcg PO QAM #30 caps 11/22/24 mcg (1,000 unit) capsule diclofenac sodium 1 % topical gel 2 g EXT BID PRN pain #100 grams 11/22/24 (Voltaren Arthritis Pain) oxycodone 5 mg tablet 5 mg PO Q6 PRN pain #12 tabs 02/26/25 baclofen 10 mg tablet 10 mg PO TID PRN atorvastatin 20 mg tablet 20 mg PO QAM acetaminophen 500 mg tablet (Tylenol Extra Strength) 1,000 mg PO Q6 PRN polyethylene glycol 3350 17 gram oral powder packet (Miralax) 17 g PO QAM PRN pregabalin 100 mg capsule 100 mg PO BID trazodone 150 mg tablet 150 mg PO HS albuterol sulfate 90 mcg/actuation aerosol inhaler 1 inh inhalation Q6H PRN albuterol sulfate 2.5 mg/3 mL (0.083 %) solution for nebulization 2.5 mg inhalation Q4H PRN amlodipine 2.5 mg tablet 2.5 mg PO QAM bupropion HCl 300 mg 24 hr tablet, extended release 300 mg PO QAM torsemide 5 mg tablet 5 mg PO QAM cholecalciferol (vitamin D3) 25 mcg (1,000 unit) capsule 25 mcg PO QAM diclofenac sodium 1 % topical gel (Voltaren Arthritis Pain) 2 g EXT BID PRN oxycodone 5 mg tablet 5 mg PO Q6 PRN celecoxib 200 mg capsule (Celebrex) 200 mg PO BID hydrochlorothiazide 25 mg tablet 25 mg PO QAM hydroxyzine HCl 25 mg tablet 25 mg PO BID PRN nortriptyline 25 mg capsule 25 mg PO HS semaglutide (weight loss) 1 mg/0.5 mL subcutaneous pen injector (Wegovy) 1 mg subcut Q7D umeclidinium 62.5 mcg-vilanterol 25 mcg/actuation powdr for inhalation 1 inh inhalation DAILY PRN STOP 7 days before surgery semaglutide (weight loss) 1 mg/0.5 mL subcutaneous pen injector (Wegovy) 1 mg subcut Q7D Continue as directed umeclidinium 62.5 mcg-vilanterol 25 mcg/actuation powdr for inhalation 1 inh inhalation DAILY PRN(if needed) ASK your surgeon for instructions diclofenac sodium 1 % topical gel (Voltaren Arthritis Pain) 2 g EXT BID PRN celecoxib 200 mg capsule (Celebrex) 200 mg PO BID DO NOT take the morning of surgery polyethylene glycol 3350 17 gram oral powder packet (Miralax) 17 g PO QAM PRN torsemide 5 mg tablet 5 mg PO QAM cholecalciferol (vitamin D3) 25 mcg (1,000 unit) capsule 25 mcg PO QAM hydrochlorothiazide 25 mg tablet 25 mg PO QAM Take morning of surgery With a small sip of water, OTHERWISE NOTHING TO EAT OR DRINK AFTER MIDNIGHT: baclofen 10 mg tablet 10 mg PO TID PRN(if needed) atorvastatin 20 mg tablet 20 mg PO QAM acetaminophen 500 mg tablet (Tylenol Extra Strength) 1,000 mg PO Q6 PRN(if needed) pregabalin 100 mg capsule 100 mg PO BID albuterol sulfate 90 mcg/actuation aerosol inhaler 1 inh inhalation Q6H PRN(use if needed; please bring with you to hospital day of surgery if possible) albuterol sulfate 2.5 mg/3 mL (0.083 %) solution for nebulization 2.5 mg inhalation Q4H PRN(if needed) amlodipine 2.5 mg tablet 2.5 mg PO QAM bupropion HCl 300 mg 24 hr tablet, extended release 300 mg PO QAM oxycodone 5 mg tablet 5 mg PO Q6 PRN(if needed) hydroxyzine HCl 25 mg tablet 25 mg PO BID PRN(if needed) Take evening before surgery baclofen 10 mg tablet 10 mg PO TID PRN(if needed) acetaminophen 500 mg tablet (Tylenol Extra Strength) 1,000 mg PO Q6 PRN(if needed) pregabalin 100 mg capsule 100 mg PO BID trazodone 150 mg tablet 150 mg PO HS albuterol sulfate 90 mcg/actuation aerosol inhaler 1 inh inhalation Q6H PRN(if needed) albuterol sulfate 2.5 mg/3 mL (0.083 %) solution for nebulization 2.5 mg inhalation Q4H PRN(if needed) oxycodone 5 mg tablet 5 mg PO Q6 PRN(if needed) hydroxyzine HCl 25 mg tablet 25 mg PO BID PRN(if needed) nortriptyline 25 mg capsule 25 mg PO HS Other Notes If you have any questions please call us at [phone] or [phone] or [phone] or [phone]
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
[2025-04-02] MEDS ORDERED: LIDOCAINE 2% 2 ML VIAL/AMP(20MG/ML) INFIL ONE (06:00)
[2025-04-02] MEDS ORDERED: MIDAZOLAM HCL 1 MG/ML 2ML VIAL ONE (06:01)
[2025-04-02] MEDS: LR 60ML/HR IV SCH (06:11)
[2025-04-02] MEDS: ACETAMINOPHEN 500 MG TAB PO SCH (06:13)
[2025-04-02] MEDS: CeleBREX 200 MG CAP PO SCH ×2 (06:14→20:09)
[2025-04-02] MEDS ORDERED: ATROPINE SULFATE 0.1 MG/ML 10ML SYR IV PRN (06:19)
[2025-04-02] MEDS: LR 15ML/HR IV SCH (06:28)
[2025-04-02] MEDS ORDERED: BUPIVACAINE 0.5 % 5 MG/1 ML PF 10ML VIAL ONE (06:29)
[2025-04-02] MEDS: TRANEXAMIC ACID 1,000 MG **IV Pre-op IV SCH (06:41)
--- NOTE | 2025-04-02 06:41 | History & Physical Bridge Note ---
Date of Service April 02, 2025 History & Physical Bridge Note I have examined the patient, reviewed the History & Physical and in the interval since the performance of the History & Physical I have noted the following changes of clinical significance: no changes noted
[2025-04-02] MEDS ORDERED: DEXAMETHASONE SOD INJ 4 MG/ML VIAL ONE (06:47)
[2025-04-02] MEDS ORDERED: ONDANSETRON INJ 2 MG/ML 2 ML VIAL ONE (06:47)
[2025-04-02] MEDS ORDERED: ROCURONIUM BROMIDE 10 MG/ML 5 ML VIAL IV ONE ×3 (06:47→09:51)
[2025-04-02] MEDS ORDERED: SUGAMMADEX SODIUM 200 MG/2 ML VIAL IV ONE ×2 (06:47→09:51)
[2025-04-02] MEDS ORDERED: PROPOFOL IV EMULSION 10 MG/ML 20 ML VIAL IV ONE (06:47)
[2025-04-02] MEDS ORDERED: PHENYLEPHRINE 100MCG/ML 5ML SYR ONE (07:43)
[2025-04-02] MEDS: ROPIV 0.5% 246mg, Ketorolac 30mg, EPINEPHrine 0.5mg in NSS INFIL SCH (10:07)
[2025-04-02] MEDS: BUPIVACAINE 0.5 % 5 MG/1 ML MPF 30ML VIAL ONE (10:23)
[2025-04-02] MEDS: LIDOCAINE 1%/EPINEPHRINE 1:100,000 50 ML VIAL ONE (10:23)
--- NOTE | 2025-04-02 10:40 | Post Operative Brief Note ---
Immediate Post Op Note Date of Surgery April 02, 2025 Pre & Post Diagnosis Operation Date: 04/02/25 07:00 Pre-Op Diagnosis: Left Shoulder Osteoarthritis, rotator cuff tear Post-Op Diagnosis: Left Shoulder Osteoarthritis, rotator cuff tear, loose bodies I identified the patient and participated in the time-out.: Yes Procedure Operation Date: 04/02/25 07:00 Actual Procedures p Left Reverse Total Shoulder (Left) - Herbert Kahn MD s Open Distal Clavicle Excision, removal of loose bodies(Left) - Herbert Kahn MD Surgeon Herbert Kahn MD Sorting Supervisor Rajendra Macias PA-C (No fellow avail) Estimated Blood Loss 100 Findings Consistent with Post-Op Diagnosis Fluids 1200 cc Specimens Left shoulder contents Anesthesia Type General Regional Complications none
--- NOTE | 2025-04-02 10:41 | Operative Report ---
Post Operative Report Pre & Post Diagnosis Operation Date: 04/02/25 07:00 Pre-Op Diagnosis: Left Shoulder Osteoarthritis, rotator cuff tear Post-Op Diagnosis: Left Shoulder Osteoarthritis, rotator cuff tear, loose bodies I identified the patient and participated in the time-out.: Yes Procedure Operation Date: 04/02/25 07:00 Actual Procedures p Left Reverse Total Shoulder (Left) - Herbert Kahn MD s Open Distal Clavicle Excision, removal of loose bodies(Left) - Herbert Kahn MD Surgeon Herbert Kahn MD Gold And Silver Assayer Rajendra Macias PA-C (No fellow avail) Estimated Blood Loss 100 Findings See Below Shoulder ROM Pre-op: FF 110 deg; Abd 120 deg; ER 20 deg; IR 10 deg The Supraspinatus was torn. Humeral head was deformed, flattened, loss of articular cartilage of humeral head and Large inferior osteophytes. LHB was degenerative. Severe synovitis of the capsule, with multiple small loose bodies. AC joint OA. Shoulder ROM Post-op: FF 150 deg; Abd 160 deg; ER 35 deg; IR 55 deg Fluids 1200 cc Specimens Left shoulder contents Anesthesia Type General Regional Complications none Indications Patient is a 69-year-old female who developed left shoulder and AC joint OA with pain and decreased mobility. I recommended that she undergo a left shoulder TSA vs Reverse TSA and distal clavicle excision. The patient understands the risks of the operation including bleeding, infection, re-operation, damage to nerves and arteries, continued shoulder pain, shoulder stiffness, infection, and/or loosening of the components which may require additional surgery. The patient also understands the risks of heart attack, stroke, pulmonary embolus, and . The patient wished to proceed and the consent form was signed. Description of Procedure IMPLANTS: Arthrex Univers Revers Modular Glenoid System 1) Humeral Stem 8 Univers Reverse [place] Stem, with size 36 Left Offset Suture Cup at 135. 2) Humeral Liner 36, + 3 mm. 3) Glenoid Modular Baseplate 24 mm +2 & Central Screw 10 x 20 mm. 4) Glenosphere 36 mm + 4 offset. 5) Glenoid Locking screw 5.5 x (32 & 36 mm). 6) FiberTak [place]. Rajendra Macias PA-C is assisting with retracting, closure, dressings, and sling placement due to fellow not available. PROCEDURE: The patient was taken to the Operating Room and placed in the beach-chair position after administration of an interscalene block and general anesthesia. 2 g of intravenous Ancef were administered. The left shoulder was then prepped and draped in the standard sterile fashion. Sequential compression devices were placed in the legs. TXA 1 g was given pre-op and a second dose was given before prepping the humeral shaft. The patient was identified and a multidisciplinary time-out identified the left shoulder as the correct shoulder and operative limb. First, the coracoid, acromion, clavicle, AC joint, and planned deltopectoral incision were marked and then anesthetized with a 50:50 mixture of 1% lidocaine and 0.5% Marcaine with epinephrine. Sharp dissection was carried down to the deltopectoral interval, the incision was curved over the AC joint as well. The cephalic vein was identified and protected medially and the deltoid was retracted laterally. The deltopectoral interval was dissected to expose the clavipectoral fascia which was then incised. Blunt dissect was used to separate the deltoid from the humeral head. A self-retaining shoulder retractor was placed beneath the conjoined tendon and deltoid muscle, exposing the subscapularis tendon. The superior 1cm of the Pec major was released. The biceps tendon was identified in its groove and had degeneration it was tenodesed to the Pec major tendon with #1 Vicryl. The biceps tendon was unroofed from its groove, and the rotator interval was split to the base of the coracoid and the biceps was released from the glenoid. The subscapularis was released off the bone. Loose body was removed from within the joint. Next, the humeral head was dislocated by adducting, extending, and externally rotation and the capsulotomy was carried down all the way around to the posterior aspect of the humeral head, taking care to stay on bone. Any humeral osteophytes anterior, inferiorly were removed with a rongeur to identify the medial calcar on the humeral neck. The humeral intramedullary entry point was entered posterior to the bicipital groove with a 2.4mm guide pin, followed by 6 mm drill, and then IM reamer. The resection guide was attached to the IM reamer and pinned to the humeral head with desired resection of 135. The IM reamer was removed and the humeral head was resected in the standard fashion. Our attention was drawn to the glenoid. The humerus was retracted and displaced posteriorly. The labrum was circumferentially removed as was the anterior capsule, which was carefully dissected free from the subscapularis tendon. The glenoid was exposed with 90 deg Aissatou retractor superiorly, Batman retractor anteriorly, and Tristin retractor posteriorly. After removing the self retaining shoulder retractor, the glenoid was prepped using the specific VIP patient specific glenoid aiming guide for a 24 mm baseplate was used to place the 2.8 mm guide wire. The glenoid surface was prepped for the baseplate with the glenoid reamers (standard and peripheral). The modular central screw was prepped with cannulated 10 mm drill, then tapped to a depth of 20 mm. The baseplate with central screw was screwed into place flush to the glenoid. The inferior screw hole was drilled first followed by the superior screw and a locking screws were placed. The glenosphere was inserted onto the baseplate and locked into place after removing the posterior retractor in the standard fashion. The humerus was dislocated and humeral broaches 6 through 8 were sequentially placed in the humeral shaft until excellent fit. The A/P position of the broach was checked. The posterior offset reamer guide was placed. The humeral cup reamer prepped the remainder of the humerus. The 8 stem was impacted into place with excellent purchase was achieved. The humeral trial liner 3 mm was placed. The shoulder was reduced with excellent fit and good stability of 1+ translation anteriorly and posteriorly. The shoulder ROM showed improved motion noted above. The definitive humeral liner was then placed. A FiberTak [place] was placed adjacent to the bicipital groove and the sutures passes through the inferior aspect of the Subscapularis. The 2 LabralTape placed in the Suture Cup were placed through the central and superior aspect of the Subscapularis and tied, completing the subscapularis repair. A superior suture was and inferior suture were tied together securing the small tuberosity fragment adjacent to the SutureCup. The ROM and stability was unchanged. Our attention was drawn to the AC joint was identified in the superior portion of the wound. The Superior AC joint ligament was incised with a longitudinal that was made in-line with its fibers. The posterior and anterior aspect of the clavicle was exposed and using a sagittal saw the distal 7 mm was removed. A rasp was used to smooth out the edges. The wound was copiously irrigated. Bone wax was placed along the exposed bone. There was adequate space. The pulsatile lavage was used to copiously irrigate the wound throughout the case. The deltopectoral interval was re-approximated with #1-Vicryl, the subcutaneous tissue was closed with 3-0 Vircyl, and the skin was closed with ZipLine and Shield. The wounds were dressed with sterile gauze, and Tegaderm. The patient was then transferred to the PACU in stable condition after application of an abduction sling. POST-OP: The patient will be admitted for observation overnight. Patient will be seen by PT/OT prior to discharge. Pain medicine will be used as needed. Continue abduction sling 4 weeks. I attest to the content of the Intraoperative Record and any orders documented therein. Any exceptions are noted below.
--- NOTE | 2025-04-02 10:59 | Operative Report ---
Post Operative Report Pre & Post Diagnosis Operation Date: 04/02/25 07:00 Pre-Op Diagnosis: Left Shoulder Osteoarthritis, rotator cuff tear Post-Op Diagnosis: Left Shoulder Osteoarthritis, rotator cuff tear, loose bodies I identified the patient and participated in the time-out.: Yes Procedure Operation Date: 04/02/25 07:00 Actual Procedures p Left Reverse Total Shoulder (Left) - Herbertisaiah Kahn MD s Open Distal Clavicle Excision, removal of loose bodies(Left) - Herbert Delisa Kahn MD Surgeon January Macias PA-C Copy Worker Rajendra Macias PA-C (No fellow avail) Estimated Blood Loss 100 Findings Consistent with Post-Op Diagnosis Specimens glenohumeral joint and ac joint Description of Procedure Pt was taken to operating room and properly positioned for procedure. Refer to anesthesia's note for anesthesia used. Pt was given pre-op antibiotics. Prepped and draped in sterile fashion. I was present during the entire case and assisted with positioning, instrumentation, closure and dressings. Please see surgeon's op report for further detail. Pt was awake and transferred to PACU in stable condition I attest to the content of the Intraoperative Record and any orders documented therein. Any exceptions are noted below.
[2025-04-02] MEDS: ONDANSETRON INJ 2 MG/ML 2 ML VIAL IV PRN (11:36)
--- NOTE | 2025-04-02 11:52 | XRay Report ---
XR shoulder LT min 2V routine CLINICAL HISTORY: Post shoulder surgery COMPARISON: 02/26/2025 FINDINGS: Interval left shoulder prosthesis shows no hardware complication. There is expected soft t issue gas. There is a nondisplaced fracture with small osseous fragment adjacent to the upper lateral prosthesis. IMPRESSION: Postoperative left shoulder. ACT 112: Negative or not required by law. Electronically signed by: Js Laureano M.D. 04/02/2025 11:51 AM
[2025-04-02] MEDS ORDERED: METOCLOPRAMIDE HCL INJ 5 MG/ML 2 ML VIAL IV PRN (12:20)
[2025-04-02] MEDS ORDERED: UMECLIDINIUM/VILANTEROL 62.5/25MCG 7 PUFFS/INHALER INH PRN (12:20)
[2025-04-02] MEDS ORDERED: ALBUTEROL HFA 8 GM INHALER INH PRN (12:20)
[2025-04-02] MEDS ORDERED: NALOXONE HCL 0.4 MG/1 ML VIAL/CARP IV PRN (12:20)
[2025-04-02] MEDS ORDERED: MAGNESIUM HYDROXIDE SUSP 30 ML UDC PO PRN (12:20)
[2025-04-02] MEDS ORDERED: ALBUTEROL 0.083% NEBU SOLN 3 ML VIAL INH PRN (12:20)
[2025-04-02] MEDS: BUPIVACAINE LIPOSOME 1.3% 133 MG/10 ML VIAL ONE (12:39)
[2025-04-02] MEDS: SODIUM CHLORIDE 0.9% 1,000 ML IV SCH (13:22)
[2025-04-02] MEDS: HYDROmorphone INJ 0.5 MG/0.5 ML SYR IV PRN (13:25)
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
--- NOTE | 2025-04-02 14:20 | Orthopedic Progress Note ---
Date of Service April 02, 2025 Assessment & Plan (1) Arthritis of left glenohumeral joint: Plan: POD #0 s/p left Reverse TSA; distal clavicle excision, doing as well as expected. Resume diet. Sling 4 weeks. OOB to chair. Continue pain control. Check labs tomorrow. DVT prophylaxis: TEDs 3 weeks, foot pumps while in hospital, ASA 81 mg BID for 2 weeks. PT/OT. D/C planning. Dressing to be changed POD 2-3 to Silverlon type dressing. Present on Admission?: Yes Admission and Anticipated Discharge Date Admission Date: April 02, 2025 Subjective No complaints Physical Exam Physical Exam: LUE: BCR < 2 sec. Motor to median, radial, ulnar, AIN, PIN intact. Diminished sensation, block is still in effect. Dressing clean, dry, intact. Results & Data Vital Signs (Past 12 Hours) Vital Signs Temp Pulse Pulse Resp BP Pulse Ox O2 Del Method 04/02/25 13:20 73 18 144/84 H 96 Nasal Cannula 04/02/25 12:50 65 16 142/76 H 98 Nasal Cannula 04/02/25 12:45 Nasal Cannula 04/02/25 12:20 36.8 C 74 16 126/78 95 Nasal Cannula 04/02/25 11:55 62 18 129/72 100 Nasal Cannula 04/02/25 11:45 36.8 C 70 12 149/80 H 97 Nasal Cannula 04/02/25 11:35 73 16 145/89 H 99 Nasal Cannula 04/02/25 11:25 70 16 137/71 97 Oxymask 04/02/25 11:15 69 20 130/82 100 Oxymask 04/02/25 11:05 68 16 148/67 H 96 Oxymask 04/02/25 10:57 36.0 C L 62 14 160/78 H 97 Oxymask 04/02/25 05:35 37 C 64 20 172/75 H 92 Room Air O2 Flow Rate 04/02/25 13:20 2.0 04/02/25 12:50 2.0 04/02/25 12:45 2 04/02/25 12:20 2 04/02/25 11:55 2 04/02/25 11:45 2 04/02/25 11:35 2 04/02/25 11:25 4 04/02/25 11:15 4 04/02/25 11:05 6 04/02/25 10:57 6 04/02/25 05:35 Laboratory Results Laboratory Results Blood Type A Positive 04/02/25 05:33 Antibody Screen NEGATIVE 04/02/25 05:33 Impressions Shoulder X-Ray 04/02/25 11:21 XR shoulder LT min 2V routine CLINICAL HISTORY: Post shoulder surgery COMPARISON: 02/26/2025 FINDINGS: Interval left shoulder prosthesis shows no hardware complication. There is expected soft tissue gas. There is a nondisplaced fracture with small osseous fragment adjacent to the upper lateral prosthesis. IMPRESSION: Postoperative left shoulder. ACT 112: Negative or not required by law. Electronically signed by: Js Laureano M.D. 04/02/2025 11:51 AM
--- NOTE | 2025-04-02 14:38 | Anesthesiology Progress Note ---
Date of Service April 02, 2025 Anesthesia Post Procedure Vital Signs Vital Signs: Temp Pulse Pulse Resp BP Pulse Ox O2 Del Method 04/02/25 14:20 71 16 115/67 92 Room Air 04/02/25 13:20 73 18 144/84 H 96 Nasal Cannula 04/02/25 12:50 65 16 142/76 H 98 Nasal Cannula 04/02/25 12:45 Nasal Cannula 04/02/25 12:20 98.2 F 74 16 126/78 95 Nasal Cannula 04/02/25 11:55 62 18 129/72 100 Nasal Cannula 04/02/25 11:45 98.2 F 70 12 149/80 H 97 Nasal Cannula 04/02/25 11:35 73 16 145/89 H 99 Nasal Cannula 04/02/25 11:25 70 16 137/71 97 Oxymask 04/02/25 11:15 69 20 130/82 100 Oxymask 04/02/25 11:05 68 16 148/67 H 96 Oxymask 04/02/25 10:57 96.8 F L 62 14 160/78 H 97 Oxymask 04/02/25 05:35 98.6 F 64 20 172/75 H 92 Room Air O2 Flow Rate 04/02/25 14:20 04/02/25 13:20 2.0 04/02/25 12:50 2.0 04/02/25 12:45 2 04/02/25 12:20 2 04/02/25 11:55 2 04/02/25 11:45 2 04/02/25 11:35 2 04/02/25 11:25 4 04/02/25 11:15 4 04/02/25 11:05 6 04/02/25 10:57 6 04/02/25 05:35 Pain Intensity Left Shoulder: Pain Intensity: 3 Transfer of Care Handoff Completed per policy Notes Mental Status: alert / awake / arousable and participated in evaluation Patient Amnestic to Procedure: Yes Nausea / Vomiting: adequately controlled Pain: adequately controlled Airway Patency, RR, SpO2: stable & adequate BP & HR: stable & adequate Hydration State: stable & adequate Anesthetic Complications: no major complications apparent and Pt Satisfied with anesthetic care
[2025-04-02] MEDS: FERROUS GLUCONATE 324 MG TAB PO SCH (16:58)
[2025-04-02] MEDS: ASCORBIC ACID 500 MG TAB PO SCH (16:58)
[2025-04-02] MEDS: PREGABALIN 100 MG CAP PO SCH (20:09)
[2025-04-02] MEDS: SENNA 8.6 MG TAB PO SCH (20:10)
[2025-04-02] MEDS: DOCUSATE SODIUM 100 MG CAP PO SCH (20:10)
[2025-04-03] MEDS: ONDANSETRON INJ 2 MG/ML 2 ML VIAL IV PRN (07:08)
[2025-04-03 07:15] LABS: Hematocrit (blood only) 31.4 % (37.0-47.0); Hemoglobin 10.4 g/dl (12.0-16.0); Immature Granulocytes # (auto) 0.04 K/uL (0.01-0.20); Immature Granulocytes % (auto) 0.4 %; Mean Corpuscular Hemoglobin 30.0 pg (25.0-34.0); Mean Corpuscular Volume 90.5 fL (80.0-100.0); Platelet Count 187 K/uL (130-400); RDW Standard Deviation 45.2 fL (36.4-46.3); Red Blood Count 3.47 M/uL (4.20-5.40); White Blood Count 10.00 K/ul (4.8-10.8)
[2025-04-03 07:30] LABS: Anion Gap 7.0 (3-11); Blood Urea Nitrogen 13.0 mg/dl (6-23); Calcium 7.9 mg/dl (8.6-10.3); Carbon Dioxide 25.0 mmol/L (21-32); Chloride 102.0 mmol/L (98-107); Creatinine Clr Calc Pharmacy 81.8 ml/min; Glucose 104.0 mg/dl (70-99(Fasting)); Potassium 4.1 mmol/L (3.5-5.1); Sodium 134.0 mmol/L (136-145)
[2025-04-03] MEDS: ACETAMINOPHEN 500 MG TAB PO PRN (08:17)
[2025-04-03] MEDS: dexAMETHasone 10 MG in SYRINGE 0 ML IV SCH (08:18)
[2025-04-03] MEDS: hydroCHLOROthiazide 25 MG TAB PO SCH (08:19)
[2025-04-03] MEDS: MULTIVITAMIN TAB PO SCH (08:20)
[2025-04-03] MEDS: SERTRALINE HCL 50 MG TABLET PO SCH (08:20)
[2025-04-03] MEDS: ASPIRIN 81 MG ECTAB PO SCH (08:20)
[2025-04-03] MEDS: CHOLECALCIFEROL 25 MCG (1000 UNITS) TAB PO SCH (08:20)
[2025-04-03] MEDS: ATORVASTATIN 20 MG TAB PO SCH (08:21)
[2025-04-03] MEDS: TORSEMIDE 10 MG TAB PO SCH (08:21)
--- NOTE | 2025-04-03 09:06 | Orthopedic Progress Note ---
Date of Service April 03, 2025 Assessment & Plan (1) Arthritis of left glenohumeral joint: Plan: POD #1 s/p left Reverse TSA; distal clavicle excision, doing as well as expected. Resume diet. Sling 4 weeks. Adjusted to fit more Appropriately today. After adjustment she did state that her neck did feel better. OOB to chair. Continue pain control. Mild drop in H/H consistent with acute blood loss anemia. DVT prophylaxis: TEDs 3 weeks, foot pumps while in hospital, ASA 81 mg BID for 2 weeks. PT/OT This morning. If safe and we will plan to discharge home. D/C planning as per case management. Plan for discharge home today if safe and PT and OT and all arrangements have been made. Follow-up as scheduled for her appointment for dressing change tomorrow. Patient understands and agrees with the plan. Discharge instructions were reviewed. Dr. Kahn present for today's visit. Admission and Anticipated Discharge Date Admission Date: April 02, 2025 Subjective Doing fairly well. Complaining of some neck pain radiating into her left shoulder. She states that she normally has neck pain, but it seems worse this morning. Sling is in place. Ice in place over left shoulder. Physical Exam Musculoskeletal: Exam of her left upper extremity: The dressings are clean, dry and intact. Sling is in place although sling is not appropriately placed. Distal pulses are 2+. Sensation is mildly diminished due to the peripheral nerve block. Full range of motion of her fingers. She is able to make a fist. Assistant Broker strength is 4- out of 5. Motor function is intact. Sling was adjusted, elbow was placed more in the pocket of the sling, belly band and shoulder strap were adjusted. Results & Data Vital Signs (Past 12 Hours) Vital Signs Temp Pulse Resp BP Pulse Ox O2 Del Method 04/03/25 07:23 36.9 C 66 20 108/62 92 Room Air 04/03/25 03:04 36.7 C 72 18 120/77 93 Room Air 04/02/25 22:54 37.1 C 70 18 134/82 93 Room Air Laboratory Results 04/03/25 04/03/25 Range/Units 06:51 06:03 WBC 10.00 Cancelled RBC 3.47 L Cancelled Hgb 10.4 L Cancelled Hct 31.4 L Cancelled MCV 90.5 Cancelled MCH 30.0 Cancelled MCHC 33.1 Cancelled RDW Std Deviation 45.2 Cancelled RDW Coeff of Jimi 13.6 Cancelled Plt Count 187 Cancelled MPV 9.1 L Cancelled Immature Gran % (Auto) 0.4 Cancelled Neut % (Auto) 62.3 Cancelled Lymph % (Auto) 21.9 Cancelled [place] % (Auto) 12.8 Cancelled Eos % (Auto) 2.3 Cancelled Baso % (Auto) 0.3 Cancelled Neut # (Auto) 6.23 Cancelled Lymph # (Auto) 2.19 Cancelled [place] # (Auto) 1.28 H Cancelled Eos # (Auto) 0.23 Cancelled Baso # (Auto) 0.03 Cancelled Immature Gran # (Auto) 0.04 Cancelled Absolute Nucleated RBC Cancelled Nucleated RBC % (auto) Cancelled Neutrophils % (Manual) Cancelled Band Neutrophils % Cancelled Lymphocytes % (Manual) Cancelled Prolymphocyte % Cancelled Reactive Lymphs % (Man) Cancelled Monocytes % (Manual) Cancelled Eosinophils % (Manual) Cancelled Basophils % (Manual) Cancelled Metamyelocytes % (Man) Cancelled Myelocytes % (Man) Cancelled Promyelocytes % (Man) Cancelled Blast Cells % (Manual) Cancelled Plasma Cell % (Manual) Cancelled Other Cells % Cancelled Nucleated RBC % Cancelled Neutrophils # (Manual) Cancelled Band Neutrophils # Cancelled Total Absolute Neuts Cancelled Lymphocytes # (Manual) Cancelled Prolymphocyte # Cancelled Reactive Lymphs # Cancelled Total Abs Lymphocytes Cancelled Monocytes # (Manual) Cancelled Eosinophils # (Manual) Cancelled Basophils # (Manual) Cancelled Metamyelocytes # (Man) Cancelled Myelocytes # (Manual) Cancelled Promyelocytes # (Man) Cancelled Blast Cells # (Man) Cancelled Plasma Cell # (Manual) Cancelled Other Cells # Cancelled Nucleated RBCs # (Man) Cancelled Hypersegmented Neuts Cancelled Hyposegmented Neuts Cancelled Hypogranular Neuts Cancelled Large Granular Lymphs Cancelled # Lrg Granular Lymphs Cancelled Hairy Cells Cancelled Smudge Cells Cancelled Toxic Granulation Cancelled Toxic Vacuolation Cancelled Dohle Bodies Cancelled Otilia Rods Cancelled Platelet Estimate Cancelled Hypogranular Platelets Cancelled Giant Platelets Cancelled Platelet Satelliting Cancelled RBC Morphology Cancelled Polychromasia Cancelled Hypochromasia Cancelled Poikilocytosis Cancelled Basophilic Stippling Cancelled Anisocytosis Cancelled Microcytosis Cancelled Macrocytosis Cancelled Spherocytes Cancelled Pappenheimer Bodies Cancelled Sickle Cells Cancelled Target Cells Cancelled Tear Drop Cells Cancelled Ovalocytes Cancelled Stomatocytes Cancelled [place] Bodies Cancelled Echinocytes Cancelled Acanthocytes (Spur) Cancelled Rouleaux Cancelled RBC Agglutinates Cancelled Schistocytes Cancelled Sezary Cell Cancelled Sodium 134 L (136-145) mmol/L Potassium 4.1 (3.5-5.1) mmol/L Chloride 102 (98-107) mmol/L Carbon Dioxide 25 (21-32) mmol/L Anion Gap 7 (3-11) BUN 13 (6-23) mg/dl Creatinine 0.69 (0.6-1.2) mg/dl Est Cr Clr Drug Dosing 81.8 ml/min eGFR 93.30 BUN/Creatinine Ratio 18.8 (10-20) Glucose 104 H (70-99(Fasting)) mg/dl Calcium 7.9 L (8.6-10.3) mg/dl Blood Parasites ID Cancelled
--- NOTE | 2025-04-03 09:08 | Discharge Summary ---
Date of Service April 03, 2025 Discharge Data Consultations 04/02/25 12:20 Consult Hospitalist Routine Procedures Performed Operation Date: 04/02/25 07:00 Actual Procedures p Left Reverse Total Shoulder (Left) - Herbert Kahn MD s Open Distal Clavicle Excision, removal of loose bodies(Left) - Herbert Kahn MD Hospital Course (1) Arthritis of left glenohumeral joint: Adrianna was kept in observation overnight at [facility] after undergoing an elective left reverse total shoulder arthroplasty with distal clavicle excision. She tolerated the procedure well with general anesthesia and a peripheral nerve block. No intraoperative complications. She was given 2 g of IV Ancef for surgical prophylaxis and this was continued for 24 hours after surgery. She was also given 1 g of IV TXA preoperatively and 1 g of IV TXA a few hours later for bleeding control. She was allowed out of bed, weightbearing as tolerated on bilateral lower extremities. Ambulate with her rolling walker as needed. She was given a regular diet. Pain medication was prescribed. She was provided with IV Dilaudid, oxycodone, Tylenol and Celebrex during her inpatient stay. She was given a regular diet and her home medications were continued. Sling was placed on her left upper extremity and she was advised to keep it on at all times and nonweightbearing of her left shoulder. X-rays taken in the recovery room show stable left reverse shoulder arthroplasty, findings as expected. She was given aspirin 81 mg p.o. twice daily, RICK stockings and AV impulse boots while in hospital for DVT prophylaxis. On postoperative day 1 she did have some neck pain which was relieved with some adjustment of the sling. She was seen by occupational and physical therapy. It was determined after her session of physical therapy and Occupational Therapy on postoperative day 1 that she would benefit from another day in the hospital for assistance with hygiene, dressing and ambulation. On Postoperative day 2 her postoperative dressings were removed and a Silverlon dressing was applied. Her sling was readjusted. She was deemed safe for discharge to her home by physical and Occupational Therapy. Discharge instructions were reviewed. Home medications were continued and pain medication was prescribed. All questions were answered. She was discharged to her home in stable condition on April 04, 2025. (2) Acute blood loss anemia: Asymptomatic Monitored during inpatient stay. No blood transfusions required. Iron supplement and Vitamin C x 2 weeks given while inpatient and instructed to continue at home after discharge.
[2025-04-03] MEDS: POLYETHYLENE (MIRALAX) 17 GM PACK PO PRN (12:50)
--- NOTE | 2025-04-03 13:44 | Hospitalist Progress Note ---
Date of Service April 03, 2025 Assessment & Plan (1) Arthritis of left glenohumeral joint: Plan: 69 year old F with a past medical history of multiple orthopedic surgeries in past for cervical and lumbar DJD, COPD with pulmonary emphysema, Pulmonary hypertension, anxiety, depression, hyperlipidemia who presented with post- operative management status post TSA and distal clavicle excision on 04/02/[address] Kahn Osteoarthritis Left Glenohumeral Joint Rotator Cuff tear arthropathy, left shoulder POD#1 Left Reverse Total Shoulder Open Distal Clavicle Excision, removal of loose bodies(Left) with Dr. Kahn. Hb is 10.4 (was 13.1 in 01/2025) Possible Acute blood anemia Check Hb in AM Pain control PT/OT Activity per Surgeon COPD with pulmonary emphysema Pulmonary hypertension Hypertension History of COPD per record, no CPAP at home and not oxygen dependent Continue home amlodipine, torsemide, HCTZ Hyperlipidemia Continue home statin Depression Anxiety Continue home wellbutrin and buspar; Sertraline ordered while inpatient I spent a total of 35 minutes coordinating, documenting and providing care for this patient excluding time spent in performance of separately billed services (2) Rotator cuff tear arthropathy of left shoulder: (3) Osteoarthritis of left shoulder: (4) Chronic obstructive bronchitis with pulmonary emphysema: (5) Pulmonary hypertension: (6) Hyperlipidemia: (7) Depression: (8) Anxiety: Admission and Anticipated Discharge Date Admission Date: April 02, 2025 Subjective Patient seen and examined this afternoon Reports her LUE/shoulder pain is controlled now. Stated it was poorly controlled earlier Reports constipation Denied other complaints Physical Exam Constitutional: + well hydrated; no acute distress Eyes: PERRL, conjunctivae normal, anicteric sclerae ENMT: external ear and nose normal, oropharynx normal Respiratory: normal respiratory effort, lungs clear to auscultation Cardiovascular: Rate/Rhythm: regular rate and regular rhythm Gastrointestinal (Abdomen): normal bowel sounds, soft, nontender, no hepatosplenomegaly Musculoskeletal: LUE in sling Neurologic: PERRL, EOMI, accommodation nl, no face palsy, no dysarthria Results & Data Results & Data Vital Signs (Past 12 Hours) Vital Signs Temp Pulse Resp BP Pulse Ox O2 Del Method 04/03/25 07:23 36.9 C 66 20 108/62 92 Room Air 04/03/25 03:04 36.7 C 72 18 120/77 93 Room Air Laboratory Results Abnormal lab results 04/03/25 04/03/25 Range/Units 06:03 06:51 RBC 3.47 L (4.20-5.40) M/uL Hgb 10.4 L (12.0-16.0) g/dl Hct 31.4 L (37.0-47.0) % MPV 9.1 L (9.4-12.4) fL [place] # (Auto) 1.28 H (0.11-0.59) K/uL Sodium 134 L (136-145) mmol/L Glucose 104 H (70-99(Fasting)) mg/dl Calcium 7.9 L (8.6-10.3) mg/dl
[2025-04-03] MEDS: BACLOFEN 10 MG TAB PO PRN (21:51)
[2025-04-04 06:56] LABS: Hematocrit (blood only) 32.0 % (37.0-47.0); Hemoglobin 10.6 g/dl (12.0-16.0); Mean Corpuscular Hemoglobin 29.9 pg (25.0-34.0); Mean Corpuscular Volume 90.1 fL (80.0-100.0); Platelet Count 190 K/uL (130-400); RDW Standard Deviation 44.1 fL (36.4-46.3); Red Blood Count 3.55 M/uL (4.20-5.40); White Blood Count 11.90 K/ul (4.8-10.8)
[2025-04-04 07:11] VITALS: BP 145/79; PULSE 64; RESP 16; TEMP 97.5; O2SAT 93
[2025-04-04 07:25] LABS: Anion Gap 6.0 (3-11); Blood Urea Nitrogen 11.0 mg/dl (6-23); Calcium 8.7 mg/dl (8.6-10.3); Carbon Dioxide 32.0 mmol/L (21-32); Chloride 98.0 mmol/L (98-107); Creatinine Clr Calc Pharmacy 94.0 ml/min; Glucose 98.0 mg/dl (70-99(Fasting)); Potassium 3.9 mmol/L (3.5-5.1); Sodium 136.0 mmol/L (136-145)
[2025-04-04] MEDS: diphenhydrAMINE Capsule 25 MG CAP PO PRN (09:20)
--- NOTE | 2025-04-04 10:50 | Hospitalist Progress Note ---
Date of Service April 04, 2025 Assessment & Plan (1) Arthritis of left glenohumeral joint: Plan: 69 year old F with a past medical history of multiple orthopedic surgeries in past for cervical and lumbar DJD, COPD with pulmonary emphysema, Pulmonary hypertension, anxiety, depression, hyperlipidemia who presented with post- operative management status post TSA and distal clavicle excision on 04/02/[address] Kahn Osteoarthritis Left Glenohumeral Joint Rotator Cuff tear arthropathy, left shoulder POD#2 Left Reverse Total Shoulder Open Distal Clavicle Excision, removal of loose bodies(Left) with Dr. Kahn. Hb is stable in 10s post op (was 13.1 in 01/2025) Postop Acute blood anemia Pain control Activity per surgeon COPD with pulmonary emphysema Pulmonary hypertension Hypertension History of COPD per record, no CPAP at home and not oxygen dependent Continue home amlodipine, torsemide, HCTZ Hyperlipidemia Continue home statin Depression Anxiety Continue home wellbutrin and buspar; Sertraline ordered while inpatient Medically stable for discharge (2) Rotator cuff tear arthropathy of left shoulder: (3) Osteoarthritis of left shoulder: (4) Chronic obstructive bronchitis with pulmonary emphysema: (5) Pulmonary hypertension: (6) Hyperlipidemia: (7) Depression: (8) Anxiety: Admission and Anticipated Discharge Date Admission Date: April 02, 2025 Subjective Patient seen and examined Reports her Left shoulder pain is well controlled Eager to go home Physical Exam Constitutional: + well hydrated; no acute distress Eyes: PERRL, conjunctivae normal, anicteric sclerae ENMT: external ear and nose normal, oropharynx normal Respiratory: normal respiratory effort, lungs clear to auscultation Cardiovascular: Rate/Rhythm: regular rate and regular rhythm Gastrointestinal (Abdomen): normal bowel sounds, soft, nontender, no hepatosplenomegaly Musculoskeletal: LUE in sling Neurologic: PERRL, EOMI, accommodation nl, no face palsy, no dysarthria Psychiatric: A+Ox3, euthymic affect Results & Data Results & Data Vital Signs (Past 12 Hours) Vital Signs Temp Pulse Resp BP Pulse Ox O2 Del Method 04/04/25 07:08 36.4 C L 64 16 145/79 H 93 Room Air Laboratory Results Abnormal lab results 04/04/25 Range/Units 05:55 WBC 11.90 H (4.8-10.8) K/ul RBC 3.55 L (4.20-5.40) M/uL Hgb 10.6 L (12.0-16.0) g/dl Hct 32.0 L (37.0-47.0) %
[2025-04-07] MEDS ORDERED: SEMAGLUTIDE 1 MG/0.5 ML SQ SCH (11:00)
== END 2025-04-04 12:15 | disposition home health service (06) ==
LOC: 3W 05:15 → ASU 05:15

== ENCOUNTER 2025-04-11 12:25 | Inpatient (IN) ==
[2025-04-11] MEDS: HYDROmorphone INJ 1 MG/ML SYRINGE IV STA (13:25)
[2025-04-11 13:27] LABS: Hematocrit (blood only) 33.2 % (37.0-47.0); Hemoglobin 11.1 g/dl (12.0-16.0); Immature Granulocytes # (auto) 0.07 K/uL (0.01-0.20); Immature Granulocytes % (auto) 0.7 %; Mean Corpuscular Hemoglobin 30.1 pg (25.0-34.0); Mean Corpuscular Volume 90.0 fL (80.0-100.0); Platelet Count 373 K/uL (130-400); RDW Standard Deviation 44.5 fL (36.4-46.3); Red Blood Count 3.69 M/uL (4.20-5.40); White Blood Count 9.77 K/ul (4.8-10.8)
--- NOTE | 2025-04-11 13:39 | XRay Report ---
XR chest 1V portable CLINICAL HISTORY: Chest pain, nonspecific COMPARISON STUDY: Chest CT January 02, 2024. Chest radiograph November 21, 2024 and February 26, 2025. FINDINGS: Postoperative findings within the spine are again noted. Left shoulder arthroplasty is part ially imaged. There is no pneumothorax or pleural effusion. There is no consolidation or evidence for pulmonary edema. The cardiomediastinal silhouette is normal. IMPRESSION: No acute cardiopulmonary findings. No change in appearance of the chest. ACT 112: Negative or not required by law. Electronically signed by: [place] M.D. 04/11/2025 1:38 PM
--- NOTE | 2025-04-11 13:41 | XRay Report ---
LEFT SHOULDER 2 VIEWS CLINICAL HISTORY: Left shoulder pain. FINDINGS: 2 views of the left shoulder are compared to study dated 04/02/2025. The skeletal structures are osteopenic. A left shoulder arthroplasty is in near anatomic alignment. A laterally displaced fr agment of the greater tuberosity is again noted. No new fracture is seen. Postsurgical change is note d at the acromioclavicular joint. Mild soft tissue edema overlies the left shoulder. The imaged left lung parenchyma appears clear. Fusion hardware is seen in the cervical and thoracic spine. IMPRESSION: 1. A left shoulder arthroplasty is in near anatomic alignment. 2. A displaced fragment of the greater tuberosity is similar in appearance to the 04/02/2025 examinatio n. Electronically signed by: Nikolas Ricks M.D. 04/11/2025 1:40 PM
[2025-04-11 13:50] LABS: Anion Gap 10.0 (3-11); Blood Urea Nitrogen 8.0 mg/dl (6-23); Calcium 8.8 mg/dl (8.6-10.3); Carbon Dioxide 27.0 mmol/L (21-32); Chloride 101.0 mmol/L (98-107); Creatinine Clr Calc Pharmacy 113.0 ml/min; Glucose 96.0 mg/dl (70-99(Fasting)); Lipase 13.0 U/L (11-82); Potassium 3.9 mmol/L (3.5-5.1); Sodium 138.0 mmol/L (136-145)
[2025-04-11 13:56] LABS: INR 0.9 (0.9-1.1); Partial Thromboplastin Time 26 Seconds (21-31); Prothrombin Time 10.3 Seconds (9.0-12.0)
[2025-04-11] MEDS: KETOROLAC TROMETHAMINE 15 MG/ML VIAL IV STA (15:05)
[2025-04-11] MEDS: LORazepam 1 MG TAB SL STA (15:06)
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
[2025-04-11] MEDS: ACETAMINOPHEN 325 MG TAB PO SCH (15:50)
[2025-04-11] MEDS: MoRPHine SULFATE 2 MG/ML CARP IV STA (16:01)
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
--- NOTE | 2025-04-11 18:44 | Electrocardiogram Report ---
Test Reason : Blood Pressure : */* mmHG Vent. Rate : 59 BPM Atrial Rate : 59 BPM P-R Int : 156 ms QRS Dur : 78 ms QT Int : 410 ms P-R-T Axes : 67 25 36 degrees QTcB Int : 405 ms Sinus bradycardia Otherwise normal ECG When compared with ECG of 26-Feb-2025 12:34, No significant change was found Confirmed by Vinay Saldana ([id number]) on 04/11/2025 6:44:36 PM Referred By: REFERRED SELF Confirmed By: Vinay Saldana
[2025-04-11] MEDS ORDERED: ACETAMINOPHEN 325 MG TAB PO PRN (19:00)
[2025-04-11] MEDS ORDERED: ALBUTEROL HFA 8 GM INHALER INH PRN (19:00)
[2025-04-11] MEDS ORDERED: POLYETHYLENE (MIRALAX) 17 GM PACK PO PRN (19:00)
[2025-04-11] MEDS ORDERED: UMECLIDINIUM/VILANTEROL 62.5/25MCG 7 PUFFS/INHALER INH PRN (19:00)
[2025-04-11 19:51] VITALS: RESP 18
[2025-04-11] MEDS: MoRPHine SULFATE 4 MG/ML 1 ML CARP\\VIAL IV PRN (20:05)
[2025-04-11] MEDS: PREGABALIN 100 MG CAP PO SCH (20:28)
[2025-04-11] MEDS: DOCUSATE SODIUM 100 MG CAP PO SCH (20:28)
[2025-04-11] MEDS: FERROUS GLUCONATE 324 MG TAB PO SCH (20:28)
[2025-04-11] MEDS: CeleBREX 200 MG CAP PO SCH (20:28)
[2025-04-11] MEDS: ASPIRIN 81 MG ECTAB PO SCH (20:29)
[2025-04-11] MEDS: ASCORBIC ACID 500 MG TAB PO SCH (20:29)
[2025-04-12 07:39] LABS: Hematocrit (blood only) 31.4 % (37.0-47.0); Hemoglobin 10.5 g/dl (12.0-16.0); Immature Granulocytes # (auto) 0.04 K/uL (0.01-0.20); Immature Granulocytes % (auto) 0.6 %; Mean Corpuscular Hemoglobin 30.1 pg (25.0-34.0); Mean Corpuscular Volume 90.0 fL (80.0-100.0); Platelet Count 323 K/uL (130-400); RDW Standard Deviation 45.1 fL (36.4-46.3); Red Blood Count 3.49 M/uL (4.20-5.40); White Blood Count 6.61 K/ul (4.8-10.8)
[2025-04-12 08:02] LABS: Alanine Aminotransferase 20.0 U/L (7-52); Albumin Globulin Ratio 1.5 (0.9-2); Alkaline Phosphatase 52.0 U/L (34-104); Anion Gap 5.0 (3-11); Bilirubin,Total 0.4 mg/dl (0.2-1.0); Blood Urea Nitrogen 10.0 mg/dl (6-23); Calcium 8.2 mg/dl (8.6-10.3); Carbon Dioxide 31.0 mmol/L (21-32); Chloride 100.0 mmol/L (98-107); Creatinine Clr Calc Pharmacy 124.8 ml/min; Globulin 2.4 gm/dl (2.5-4.0); Glucose 99.0 mg/dl (70-99(Fasting)); Potassium 3.9 mmol/L (3.5-5.1); Sodium 136.0 mmol/L (136-145); Total Protein 5.9 gm/dl (6.0-8.3)
[2025-04-12] MEDS: CHOLECALCIFEROL 25 MCG (1000 UNITS) TAB PO SCH (08:58)
[2025-04-12] MEDS: SERTRALINE HCL 50 MG TABLET PO SCH (08:58)
[2025-04-12] MEDS: ATORVASTATIN 20 MG TAB PO SCH (08:58)
[2025-04-12] MEDS: hydroCHLOROthiazide 25 MG TAB PO SCH (08:58)
[2025-04-12] MEDS: TORSEMIDE 10 MG TAB PO SCH (08:59)
--- NOTE | 2025-04-12 09:07 | Orthopedic Progress Note ---
Date of Service April 12, 2025 Assessment & Plan (1) Left shoulder pain: Plan: PT/OT Keep Silverlon dressing in place Ice with easy wrap Sling. May come out to work on elbow, hand, wrist and finger range of motion. Pain control with p.o. oxycodone and Tylenol. Advised her that she can take up to 2 oxycodone at a time every 4 hours and that she may supplement with Tylenol with every other dose of the oxycodone. Patient states that she was scheduled for her second in-home PT appointment today but will miss it due to being admitted. Patient states she is scheduled to meet with Dr. Kahn for her follow-up on April 15. Orthopedically patient is stable for discharge. Admission and Anticipated Discharge Date Admission Date: April 11, 2025 Subjective This 69-year-old female who presented to the ED on 04/11/2025 with complaints of left shoulder pain. Patient is s/p left reverse total shoulder open distal clavicle excision with removal of loose bodies on 04/02/2025. She was dischargeed from the hospital on April 04 with prescriptions for p.o. oxycodone and Tylenol. She states that she has only been taking 1 oxycodone every 6 hours and extra strength Tylenol with every other dose. She states that her pain became very severe yesterday. She states she is currently doing home physical therapy twice a week. Patient states she was given IV morphine in the ED yesterday and today was given p.o. oxycodone and her pain is now effectively controlled. She is hoping to be discharged home today. Currently she denies chest pain, shortness of breath, fever, chills, sweats, nausea, vomiting, diarrhea or numbness or tingling in her left upper extremity. Review of Systems Review of Systems: All systems reviewed & are unremarkable except as noted in Subjective Physical Exam Physical Exam: Left upper extremity: Silverlon is clean dry and intact and left in place. There is some mild edema and erythema noted circumferentially around the dressing but no warmth, blistering or skin breakdown. There is some mild ecchymosis in the axillary fold. Patient is able to reach about 8 degrees short of terminal elbow extension is able to fully flex without significant discomfort. Did not attempt movement of her shoulder due to the recent surgery. She does have full range of motion of her hand wrist and fingers. She is able to resist compression of the digits 2 through 5. She is able to resist traction pincer grasp and thumb and index finger. Has no discomfort or limitations with resisted extension at the IP MCP joint of her thumb. Her peripheral pulses are 2+. Her capillary fill is less than 2 seconds. She is neurovascularly intact in the left upper extremity. Results & Data Vital Signs (Past 12 Hours) Vital Signs Temp Pulse Pulse Resp BP Pulse Ox O2 Del Method 04/12/25 07:50 67 04/12/25 07:04 36.8 C 64 18 157/78 H 92 Room Air 04/12/25 03:16 36.7 C 62 18 136/60 93 Room Air 04/11/25 23:51 36.4 C L 61 18 138/72 92 Room Air 04/11/25 21:52 60 Diagnostic Findings Laboratory Results WBC 6.61 K/ul (4.8-10.8) 04/12/25 07:09 RBC 3.49 M/uL (4.20-5.40) L 04/12/25 07:09 Hgb 10.5 g/dl (12.0-16.0) L 04/12/25 07:09 Hct 31.4 % (37.0-47.0) L 04/12/25 07:09 MCV 90.0 fL (80.0-100.0) 04/12/25 07:09 MCH 30.1 pg (25.0-34.0) 04/12/25 07:09 MCHC 33.4 g/dL (32.0-36.0) 04/12/25 07:09 RDW Std Deviation 45.1 fL (36.4-46.3) 04/12/25 07:09 RDW Coeff of Jimi 13.8 % (11.5-14.5) 04/12/25 07:09 Plt Count 323 K/uL (130-400) 04/12/25 07:09 MPV 8.7 fL (9.4-12.4) L 04/12/25 07:09 Immature Gran % (Auto) 0.6 % 04/12/25 07:09 Neut % (Auto) 55.6 % 04/12/25 07:09 Lymph % (Auto) 22.8 % 04/12/25 07:09 [place] % (Auto) 13.5 % 04/12/25 07:09 Eos % (Auto) 7.0 % 04/12/25 07:09 Baso % (Auto) 0.5 % 04/12/25 07:09 Neut # (Auto) 3.68 K/uL (1.40-6.50) 04/12/25 07:09 Lymph # (Auto) 1.51 K/uL (1.20-3.40) 04/12/25 07:09 [place] # (Auto) 0.89 K/uL (0.11-0.59) H 04/12/25 07:09 Eos # (Auto) 0.46 K/uL (0.00-0.50) 04/12/25 07:09 Baso # (Auto) 0.03 K/uL (0.00-0.20) 04/12/25 07:09 Immature Gran # (Auto) 0.04 K/uL (0.01-0.20) 04/12/25 07:09 PT 10.3 Seconds (9.0-12.0) 04/11/25 12:30 INR 0.9 (0.9-1.1) 04/11/25 12:30 APTT 26 Seconds (21-31) 04/11/25 12:30 PTT Ratio 1.0 04/11/25 12:30 Sodium 136 mmol/L (136-145) 04/12/25 07:09 Potassium 3.9 mmol/L (3.5-5.1) 04/12/25 07:09 Chloride 100 mmol/L (98-107) 04/12/25 07:09 Carbon Dioxide 31 mmol/L (21-32) 04/12/25 07:09 Anion Gap 5 (3-11) 04/12/25 07:09 BUN 10 mg/dl (6-23) 04/12/25 07:09 Creatinine 0.48 mg/dl (0.6-1.2) L 04/12/25 07:09 Est Cr Clr Drug Dosing 124.8 ml/min 04/12/25 07:09 eGFR 101.83 04/12/25 07:09 BUN/Creatinine Ratio 20.8 (10-20) H 04/12/25 07:09 Glucose 99 mg/dl (70-99(Fasting)) 04/12/25 07:09 Calcium 8.2 mg/dl (8.6-10.3) L 04/12/25 07:09 Total Bilirubin 0.4 mg/dl (0.2-1.0) 04/12/25 07:09 AST 22 U/L (13-39) 04/12/25 07:09 ALT 20 U/L (7-52) 04/12/25 07:09 Alkaline Phosphatase 52 U/L (34-104) 04/12/25 07:09 Troponin I High Sens 3.8 pg/ml (0-14) 04/11/25 12:30 Total Protein 5.9 gm/dl (6.0-8.3) L 04/12/25 07:09 Albumin 3.5 gm/dl (3.4-5.0) 04/12/25 07:09 Globulin 2.4 gm/dl (2.5-4.0) L 04/12/25 07:09 Albumin/Globulin Ratio 1.5 (0.9-2) 04/12/25 07:09 Lipase 13 U/L (11-82) 04/11/25 12:30 Impressions Chest X-Ray 04/11/25 13:07 XR chest 1V portable CLINICAL HISTORY: Chest pain, nonspecific COMPARISON STUDY: Chest CT January 02, 2024. Chest radiograph November 21, 2024 and February 26, 2025. FINDINGS: Postoperative findings within the spine are again noted. Left shoulder arthroplasty is partially imaged. There is no pneumothorax or pleural effusion. There is no consolidation or evidence for pulmonary edema. The cardiomediastinal silhouette is normal. IMPRESSION: No acute cardiopulmonary findings. No change in appearance of the chest. ACT 112: Negative or not required by law. Electronically signed by: [place] M.D. 04/11/2025 1:38 PM Shoulder X-Ray 04/11/25 13:07 LEFT SHOULDER 2 VIEWS CLINICAL HISTORY: Left shoulder pain. FINDINGS: 2 views of the left shoulder are compared to study dated 04/02/2025. The skeletal structures are osteopenic. A left shoulder arthroplasty is in near anatomic alignment. A laterally displaced fragment of the greater tuberosity is again noted. No new fracture is seen. Postsurgical change is noted at the acromioclavicular joint. Mild soft tissue edema overlies the left shoulder. The imaged left lung parenchyma appears clear. Fusion hardware is seen in the cervical and thoracic spine. IMPRESSION: 1. A left shoulder arthroplasty is in near anatomic alignment. 2. A displaced fragment of the greater tuberosity is similar in appearance to the 04/02/2025 examination. Electronically signed by: Nikolas Ricks M.D. 04/11/2025 1:40 PM (1) Left shoulder pain Chronicity: unspecified Qualified Code(s): M25.512 - Pain in left shoulder
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
[2025-04-12 11:53] VITALS: BP 157/104; PULSE 72; TEMP 98.8; O2SAT 91
--- NOTE | 2025-04-12 11:57 | Discharge Summary ---
Discharge Summary Date of Service April 12, 2025 Principal Dx & Hospital Course #1 = Principal Diagnosis (1) Chronic obstructive bronchitis with pulmonary emphysema: (2) Anxiety and depression: (3) Hypertension: (4) Hyperlipidemia: (5) Osteoarthritis of left shoulder: (6) Arthritis of left glenohumeral joint: (7) Pulmonary hypertension: Plan The patient is a 69-year-old female who presents to the ED on 04/11/2025 with complaints of left shoulder pain; she is s/p left reverse total shoulder open distal clavicle excision with removal of loose bodies on 04/02/2025 Left shoulder pain Recent L reverse total shoulder open distal clavicle excision with removal of loose bodies04/02 Came to ED for uncontrolled pain Ortho consulted, pain control augmented with increased oxycodone, continue home PT/OT, close ortho f/u with Dr. Kahn on 04/15 Suggested PT/OT and possible rehab referral - patient declines, opts to return home Continue DVT prophylaxis: Aspirin twice daily per ortho Acute hypoxia -> resolved S/p Dilaudid/ativan administration, chest x-ray with no acute findings No recurrence of hypoxia overnight, no SOB Hx COPD Continue home inhalers, not in acute COPD exacerbation Hx pulmonary hypertension Hx HTN/HLD Continue amlodipine/torsemide/HCTZ/statin Hx depression/anxiety: Continue Wellbutrin/BuSpar/sertraline Notes For Next Care Provider close post-op ortho f/u 04/15 Medication Changes From Visit Ortho increase oxycodone dose Admission HPI Per Admitting Provider Patient is a 69 year old F with a past medical history of multiple orthopedic surgeries in past for cervical and lumbar DJD, COPD with pulmonary emphysema, Pulmonary hypertension, anxiety, depression, hyperlipidemia; L shoulder arthri tis, rotator cuff tear arthropathy s/p L reverse total shoulder open distal clavicle excision, removal of loose bodies w/ Dr. Kahn (04/02/25) who presents to the ER on 04/11/25 with complaints of L shoulder pain that has not improved over the past few days. Recently hospitalized until 04/04/25 s/p recent shoulder surgery. She was discharged on tylenol and oxy that have not provided pain relief. She was ordered non-wt bearing and to wear her sling for one month. Denies any CP/fevers/chills/abdominal pain/n/v/d. On exam, patient crying due to the severity of her pain. Reports having adequate help at home and is not interested in rehab facility. On arrival to the ED, labs remarkable for hgb 11.1, cr 0.53 CXR negative for any acute changes Shoulder xray showed: 1. A left shoulder arthroplasty is in near anatomic alignment. 2. A displaced fragment of the greater tuberosity is similar in appearance to the 04/02/2025 examination. The patient will be admitted for further PT/OT and pain control Admission Exam Per Admitting Provider Constitutional: WD/WN, vitals as above Eyes: PERRL, conjunctivae normal, anicteric sclerae ENMT: external ear and nose normal, oropharynx normal Neck: trachea midline, no thyromegaly Respiratory: normal respiratory effort, lungs clear to auscultation (diminished lung sounds ) Cardiovascular: RRR, no murmur, no edema Gastrointestinal (Abdomen): normal bowel sounds, soft, nontender, no hepatosplenomegaly Musculoskeletal: no cyanosis or clubbing, extremities motor strength 5/5 (L arm in sling ) Skin: no rashes, warm and dry Neurologic: PERRL, EOMI, accommodation nl, no face palsy, no dysarthria Psychiatric: A+Ox3, euthymic affect Genitourinary: no vaginal lesions, no adnexal mass Lymphatic: no cervical or axillary lymphadenopathy Discharge Exam Gen: WD/WN, NAD, sitting up in bed, A&Ox3, anxious HEENT: Normocephalic, atraumatic Lung: Clear to Auscultation bilaterally Heart: Regular rate, regular rhythm Abdomen: Soft, NT, ND Extremities: + L arm in sling, bulk sealer strength intact, no edema Skin: Warm, no rash Updated Medication List Medication Instructions Recorded Confirmed Type baclofen 10 mg tablet 10 mg PO TID PRN Muscle Spasm/Pain 10/12/18 04/11/25 Histo ry atorvastatin 20 mg tablet 20 mg PO QAM 12/28/18 04/11/25 History polyethylene glycol 3350 17 gram 17 g PO QAM PRN Constipation 02/11/22 04/11/25 History oral powder packet (Miralax) albuterol sulfate 90 mcg/actuation 1 inh inhalation Q6H PRN shortness 09/24/22 04/11/25 Rx aerosol inhaler of breath or wheezing #8.5 grams albuterol sulfate 2.5 mg/3 mL 2.5 mg inhalation Q4H PRN 12/27/23 04/11/25 History (0.083 %) solution for nebulization Shortness Of Breath Or Wheezing amlodipine 2.5 mg tablet 2.5 mg PO QAM 12/27/23 04/11/25 History bupropion HCl 300 mg 24 hr tablet, 300 mg PO QAM 12/27/23 04/11/25 History extended release cholecalciferol (vitamin D3) 25 25 mcg PO QAM #30 caps 11/22/24 04/11/25 Rx mcg (1,000 unit) capsule diclofenac sodium 1 % topical gel 2 g EXT BID PRN pain #100 grams 11/22/24 04/11/25 Rx (Voltaren Arthritis Pain) celecoxib 200 mg capsule (Celebrex) 200 mg PO BID 02/28/25 04/11/25 History hydroxyzine HCl 25 mg tablet 25 mg PO TID PRN Anxiety 02/28/25 04/11/25 History semaglutide (weight loss) 1 mg/0.5 1 mg subcut Q7D 02/28/25 04/11/25 History mL subcutaneous pen injector (Wegovy) umeclidinium 62.5 mcg-vilanterol 1 inh inhalation DAILY PRN sob 02/28/25 04/11/25 History 25 mcg/actuation powdr for inhalation (Anoro Ellipta) ascorbic acid (vitamin C) 500 mg 500 mg PO BIDM 14 days #28 tabs 04/03/25 04/11/25 Rx tablet (Vitamin C) aspirin 81 mg tablet,delayed 81 mg PO BID 42 days #84 tabs 04/03/25 04/11/25 Rx release docusate sodium 100 mg capsule 100 mg PO BID 14 days #28 caps 04/03/25 04/11/25 Rx ferrous gluconate 324 mg (38 mg 324 mg PO BIDM 14 days #28 tabs 04/03/25 04/11/25 Rx iron) tablet oxycodone 5 mg tablet 5 - 10 mg (1 - 2 x 5 mg) PO Q4H 04/03/25 04/11/25 Rx PRN pain #18 tabs bupropion HCl 150 mg 24 hr tablet, 150 mg PO DAILY 04/11/25 04/11/25 History extended release hydrochlorothiazide 12.5 mg tablet 12.5 mg PO DAILY 04/11/25 04/11/25 History pregabalin 200 mg capsule 200 mg PO BID 04/11/25 04/11/25 History sertraline 50 mg tablet 50 mg PO DAILY 04/11/25 04/11/25 History trazodone 100 mg tablet 200 mg PO HS 04/11/25 04/11/25 History acetaminophen 500 mg tablet 1,000 mg (2 x 500 mg) PO Q8H PRN 04/12/25 04/11/25 Rx (Tylenol Extra Strength) Pain #0 tabs Hospital Stay Data Consultations 04/11/25 15:04 ED Decision to Admit Stat 04/11/25 19:00 Consult Orthopedic Surgery Routine Pending Results Patient Have Any Pending Studies at Discharge: No Discharge Instructions Given to Patient (Per Discharging Provider) Per orthopedic team: Oxycodone dose increased to 1-2 Q4H PRN and supplement with Tylenol Continue bowel regimen with daily miralax while taking narcotics PT/OT Keep Silverlon dressing in place Ice with easy wrap Sling. May come out to work on elbow, hand, wrist and finger range of motion Due for post-op follow up with Dr. Kahn on April 15. RECOMMENDATIONS FOR FOLLOW-UP: Follow up with PCP and ortho as scheduled. Continue medication regimen as scheduled aside from changes noted above. OTHER INSTRUCTIONS: Seek medical attention if you have: * temperature above 101 * chest pain or trouble breathing * abdominal pain, nausea, vomiting * diarrhea, dark stools or bloody stools * any unanswered questions or concerns Call 911 if symptoms are severe. Please take good care of yourself. Call if you have any questions or problems. You can reach a [facility] hospitalist on duty at [facility] 24 hours a day by calling [phone]. Total Time Total Time Spent Total Time Spent (In Minutes): 40 Supervising Physician Co-Signing Physician Notes Patient is seen and examined at bedside. Patient states having left shoulder pain which is improving with pain medication. Also admits to having minimal tingling, numbness. No other complaints today. Physical Exam: Vitals signs as noted above General Appearance:Obese, no apparent distress Head: normocephalic, Atraumatic Eyes: normal inspection, EOMI Neck: supple, Trachea midline Respiratory/Chest: Decreased breath sounds, CTA, No accessory muscle use Cardiovascular: S1, S2, No murmur Abdomen/GI:Soft, Non tender, Bowel sounds present Extremities/Musculoskeletal:normal inspection, Trace edema, L shoulder in sling Neurologic/Psych:AAOX3, grossly no focal neurological deficits Skin: normal color, warm Postoperative left shoulder pain S/P reverse total shoulder arthroplasty Appreciate orthopedics input Continue sling, pain control as needed Has scheduled orthopedics follow-up next week on discharge Fall precautions I personally interviewed and examined the patient at bedside. I have reviewed the advanced practitioner's documentation on the date of service referred in note and agree with plan. Patient's care is coordinated with Rena Weiss PA-C. Please refer to the documentation above for details of patient's presentation and for discussion of other issues. I spent a total [id number] coordinating, documenting, and providing care for this patient excluding time spent in the performance of separately billed services or time spent by another provider/QHP.
[2025-04-12] MEDS ORDERED: NYSTATIN CR 15 GM TUBE EXT PRN (12:55)
== END 2025-04-12 16:10 | disposition home health service (06) | DRG 556 ==
LOC: ED 12:25 → SUATTDRO 15:11 → 2W 15:11

== ENCOUNTER 2025-09-22 02:00 | Inpatient (IN) ==
--- NOTE | 2025-09-22 02:13 | Emergency Department Note ---
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 muscle spasms) buspirone 10 mg tablet 10 mg PO BID hydroxyzine HCl 25 mg tablet 25 mg PO TID PRN (Reason: Anxiety) bupropion HCl 300 mg tablet extended release 24 hr 300 mg PO DAILY bupropion HCl 150 mg tablet extended release 24 hr 150 mg PO DAILY Rx Instructions: To take along with 300mg tablet pregabalin 200 mg capsule 200 mg PO BID hydrochlorothiazide 12.5 mg tablet 12.5 mg PO DAILY umeclidinium-vilanterol [Anoro Ellipta] 62.5-25 mcg/actuation blister with device 1 inh INHALATION DAILY albuterol sulfate 90 mcg/actuation Hfa Aerosol Inhaler 2 puff INHALATION QID PRN (Reason: Shortness Of Breath Or Wheezing) Referrals Referrals: Zion Guzman MD [Primary Care Provider] -
[2025-09-22] MEDS: ONDANSETRON INJ 2 MG/ML 2 ML VIAL IV STA (02:14)
[2025-09-22 02:54] LABS: Alanine Aminotransferase 17 U/L (7-52); Albumin Globulin Ratio 1.4 (0.9-2); Albumin Level 4.3 gm/dl (3.4-5.0); Alkaline Phosphatase 64 U/L (34-104); Anion Gap 7 (3-11); Bilirubin,Total 0.5 mg/dl (0.2-1.0); Blood Urea Nitrogen 16 mg/dl (6-23); Calcium 9.7 mg/dl (8.6-10.3); Carbon Dioxide 30 mmol/L (21-32); Chloride 96 mmol/L (98-107); Creatine Kinase 109 U/L (26-192); Globulin 3.1 gm/dl (2.5-4.0); Glucose 108 mg/dl (70-99(Fasting)); Potassium 4.0 mmol/L (3.5-5.1); Sodium 133 mmol/L (136-145); Total Protein 7.4 gm/dl (6.0-8.3)
[2025-09-22 02:55] LABS: Hematocrit (blood only) 36.9 % (37.0-47.0); Hemoglobin 12.5 g/dL (12.0-16.0); Immature Granulocytes # (auto) 0.07 K/uL (0.01-0.20); Immature Granulocytes % (auto) 0.7 %; Mean Corpuscular Hemoglobin 29.2 pg (25.0-34.0); Mean Corpuscular Volume 86.2 fL (80.0-100.0); Platelet Count 281 K/uL (130-400); Polychromasia 1+; RDW Standard Deviation 47.9 fL (36.4-46.3); Red Blood Count 4.28 M/uL (4.20-5.40); White Blood Count 9.99 K/ul (4.8-10.8)
[2025-09-22] MEDS: HYDROmorphone INJ 0.5 MG/0.5 ML SYR IV STA ×2 (03:03→03:51)
[2025-09-22 03:06] LABS: INR 1.0 (0.9-1.1); Partial Thromboplastin Time 21 Seconds (21-31); Prothrombin Time 10.6 Seconds (9.0-12.0)
--- NOTE | 2025-09-22 03:41 | XRay Report ---
EXAM: XR humerus RT 2V CLINICAL HISTORY: Fall TECHNIQUE: X-ray images of the right humerus were obtained in anteroposterior (AP) and lateral projections. COMPARISON: No prior studies available for comparison. FINDINGS: Bone Structure: Normal osseous alignment. No evidence of acute fracture or dislocation. The humerus is intact without focal lytic or sclerotic lesions. Joint Spaces: Narrowing of the glenohumeral and acromioclavicular joint spaces with associated subchondral sclerosis and multiple marginal osteophytes, consistent with degenerative changes. Mild degenerative changes involving the elbow joint. Small focal calcification at the superior aspect of the shoulder joint space, suggestive of a loose body versus calcific tendinitis. No joint effusion or subluxation identified. Soft Tissues: A tiny subcutaneous radiopaque focus at the dorsal aspect of the elbow joint, likely representing nonspecific cutaneous calcification; a foreign body is less likely. Clinical correlation is advised. IMPRESSION: 1. No acute osseous abnormality. 2. Tiny subcutaneous radiopaque focus at the dorsal elbow, likely nonspecific cutaneous calcification; foreign body less likely. Clinical correlation is advised. 3. 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 4. Small calcific focus at the superior shoulder joint space, likely a loose body versus calcific tendinitis. 5. Mild degenerative changes of the elbow joint. Disclaimer: A subtle bone abnormality or fracture may not be readily apparent on X-rays, thus clinical correlation and further imaging, including follow-up CT, MRI, or follow-up X-rays, are advised as needed. Electronically signed by Earl Rodriguez 09-22-2025 03:40 AM
--- NOTE | 2025-09-22 03:50 | XRay Report ---
EXAM: XR hip LT 2V w pelvis CLINICAL HISTORY: Fall. TECHNIQUE: X-ray images of the left hip joint in AP and lateral projection. COMPARISON: 09/20/2025 X-ray. FINDINGS: Hip Joints: Comminuted fracture involving the left femoral neck with extension into the intertrochanteric region and proximal femoral shaft (subtrochanteric component). Fracture fragments are mildly displaced with areas of impaction. This represents a new finding. Mild degenerative changes are present in both hip joints. Sacroiliac Joints: Sacroiliac joints are normal in appearance. No evidence of sacroiliitis or significant degenerative change. Symphysis Pubis: Symphysis pubis is intact. No diastasis or widening identified. Soft Tissues: Visualized soft tissues are unremarkable. No abnormal swelling, calcification, or soft tissue mass. Additional Findings: No other significant abnormalities are identified. IMPRESSION: 1. Acute comminuted fracture of the left femoral neck with intertrochanteric and subtrochanteric extension, demonstrating mild displacement and impaction. This represents a new finding. 2. Mild bilateral hip joint degenerative changes. Disclaimer: A subtle bone abnormality or fracture may not be readily apparent on X-rays, thus clinical correlation and further imaging including follow-up CT, MRI, or follow-up X-rays are advised as needed. Electronically signed by Earl Rodriguez 09-22-2025 03:49 AM
--- NOTE | 2025-09-22 03:51 | XRay Report ---
EXAM: XR chest 1V portable CLINICAL HISTORY: Fall. TECHNIQUE: An X-ray image of the chest is obtained in AP projection. COMPARISON: Compared to the previous chest x-ray study, dated 04/11/2025. FINDINGS: Pulmonary Parenchyma: Lungs are clear bilaterally. No evidence of consolidation, collapse, or focal opacities. No pulmonary nodules are identified. No evidence of pleural effusion or pleural thickening. Heart and Mediastinum: Heart size and shape are normal. No mediastinal widening or masses. No hilar or mediastinal lymphadenopathy. Bony Thorax: Spinal fixation at lower cervical vertebrae and mid-thoracic vertebrae. Soft Tissues: Soft tissues overlying the chest wall are unremarkable. IMPRESSION: 1. No acute cardiopulmonary abnormalities are identified. 2. Interval resolution of the left lower lung zone opacity. Electronically signed by Earl Rodriguez 09-22-2025 03:51 AM
--- NOTE | 2025-09-22 04:02 | CT Scan Report ---
EXAM: CT hip LT wo con CLINICAL HISTORY: Fracture, fall. TECHNIQUE: Multiple, contiguous, nonenhanced CT scan of the left hip joint in axial plane with multiplanar reconstructions. One of the following dose reduction techniques was utilized for this exam: Automated exposure control, adjustment of the mA and/or kV according to patient size, and use of iterative reconstruction. COMPARISON: CR same date 09/22/2025 01:40:00 HAULAGE BOSS reviewed FINDINGS: Bones: Acute comminuted intertrochanteric fracture of left femur with displaced fractures of greater and lesser trochanters and fracture lines extending superiorly in the neck region and laterally in the proximal shaft of femur with surrounding small bone fragments and hemorrhagic fluid collection with soft tissue thickening. Joint: Internal rotation of left femoral head. No evidence of dislocation of left hip joint. Mild left hip osteoarthritic changes. Soft Tissues: Vastus intermedius muscle on left side appears bulky with a possible hematoma. Soft tissue thickening with hemorrhagic fluid collection surrounding the fractured site. Incidental atherosclerotic calcification seen in visualized vessels. IMPRESSION: 1. Acute comminuted intertrochanteric fracture of left femur with displaced fractures of greater and lesser trochanters and fracture lines extending superiorly in the neck region and laterally in the proximal shaft of femur with surrounding small bone fragments and hemorrhagic fluid collection with soft tissue thickening. The findings concur with recent CR. 2. Internal rotation of left femoral head. 3. No evidence of dislocation of left hip joint. 4. Mild left hip osteoarthritic changes. 5. Vastus intermedius muscle on left side appears bulky with a possible hematoma. Electronically signed by Earl Rodriguez 09-22-2025 04:01 AM
--- NOTE | 2025-09-22 04:06 | CT Scan Report ---
EXAM: CT head/brain wo con CLINICAL HISTORY: Fall TECHNIQUE: Axial non-contrast CT scan of the brain was performed from the skull base to the high parietal region. One of the following dose reduction techniques were utilized for this exam: Automated exposure control, adjustment of the mA and/or kV according to patient size, use of iterative reconstruction. COMPARISON: 08/15/2023 FINDINGS: Artifacts decreasing the diagnostic sensitivity of the examination. Brain Parenchyma: There are ill-defined iso-to hypodense areas in the subcortical and periventricular white matter bilaterally, representing chronic microvascular ischemic changes. The rest of the visualized brain parenchyma shows normal appearance. No intracerebral or extra axial hematoma. Ventricular System: Prominent ventricular system. Subarachnoid Spaces: The cortical sulci and basal cisterns are prominent, consistent with senile changes. 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 Temporal evolution noted. Rest unremarkable. Orbits: Normal appearance of the globes, optic nerves, and extraocular muscles. No evidence of orbital masses or abnormal density. Visualised Paranasal sinuses: Mild to moderate opacification of the ethmoid air cells with minimal mucosal thickening in right maxillary and left frontal sinuses. Small right sphenoid polyp/retention cyst. Mastoid Air Cells: Clear mastoid air cells. Skull and soft tissue: Normal skull morphology. IMPRESSION: 1. No acute intracranial traumatic injury in plain CT head at present 2. Chronic microvascular ischemic changes and senile cortical atrophy, mild interval progression since prior CT study dated 08/15/2023 Electronically signed by Earl Rodriguez 09-22-2025 04:05 AM
--- NOTE | 2025-09-22 04:08 | CT Scan Report ---
EXAM: CT cervical spine wo con CLINICAL HISTORY: Fall. TECHNIQUE: CT scan of the cervical spine was performed without the administration of intravenous contrast. Contiguous axial images were obtained from the skull base to the upper thoracic spine. Coronal and sagittal reformatted images were also reviewed. One of the following dose reduction techniques was utilized for this exam. Automated exposure control, adjustment of the mA and/or kV according to patient size, and use of iterative reconstruction. COMPARISON: 12/27/2023 CT. FINDINGS: Vertebrae: No evidence of acute fracture in the cervical spine. 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 Satisfactory alignment of the metallic hardware is identified. Loss of cervical lordosis with straightening of curvature. Multilevel anterior and posterior osteophytes with uncovertebral hypertrophy noted. Atlantodental osteoarthritic changes. Diffuse osteopenic changes noted. Intervertebral Discs: Fusion of intervertebral disc spaces. Posterior osteophytes resulting in variable degrees of neural foraminal narrowing, exaggerated by facetal arthropathy, predominantly in lower cervical levels. Facet Joints: Severe degenerative changes. Prevertebral Soft Tissues: The prevertebral soft tissues are normal in thickness without evidence of mass or abnormal fluid collection. Additional Findings: Visualized sections of upper thorax show no significant abnormality. Atherosclerotic carotid calcifications. IMPRESSION: 1. No evidence of acute fracture in the cervical spine. 2. 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 3. Cervical spondylodegenerative changes as described above Electronically signed by Earl Rodriguez 09-22-2025 04:07 AM
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
[2025-09-22 05:24] LABS: Appearance Urine Clear (Clear); Glucose Urine UA Negative (Negative)
[2025-09-22] MEDS: SODIUM CHLORIDE 0.9% 1,000 ML IV SCH (06:20)
[2025-09-22] MEDS ORDERED: POLYETHYLENE (MIRALAX) 17 GM PACK PO PRN (06:20)
[2025-09-22] MEDS ORDERED: ALBUTEROL HFA 8 GM INHALER INH PRN (06:20)
[2025-09-22] MEDS: HYDROmorphone INJ 0.5 MG/0.5 ML SYR IV PRN ×2 (07:15→18:00)
[2025-09-22] MEDS ORDERED: LEVALBUTEROL 1.25 MG/3 ML NEB NEB PRN (07:26)
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
[2025-09-22] MEDS: hydroCHLOROthiazide 25 MG TAB PO SCH (08:35)
[2025-09-22] MEDS: PREGABALIN 100 MG CAP PO SCH (08:35)
[2025-09-22] MEDS: UMECLIDINIUM/VILANTEROL 62.5/25MCG 7 PUFFS/INHALER INH SCH (08:36)
[2025-09-22] MEDS: SERTRALINE HCL 100 MG TABLET PO SCH (08:36)
[2025-09-22] MEDS: ATORVASTATIN 20 MG TAB PO SCH (08:36)
[2025-09-22] MEDS: busPIRone 5 MG TAB PO SCH (08:36)
[2025-09-22 08:45] LABS: Hematocrit (blood only) 34.9 % (37.0-47.0); Hemoglobin 11.8 g/dL (12.0-16.0); Immature Granulocytes # (auto) 0.04 K/uL (0.01-0.20); Immature Granulocytes % (auto) 0.4 %; Mean Corpuscular Hemoglobin 28.9 pg (25.0-34.0); Mean Corpuscular Volume 85.5 fL (80.0-100.0); Platelet Count 256 K/uL (130-400); RDW Standard Deviation 46.4 fL (36.4-46.3); Red Blood Count 4.08 M/uL (4.20-5.40); White Blood Count 11.02 K/ul (4.8-10.8)
[2025-09-22 09:01] LABS: Anion Gap 9.0 (3-11); Blood Urea Nitrogen 14.0 mg/dl (6-23); Calcium 8.9 mg/dl (8.6-10.3); Carbon Dioxide 28.0 mmol/L (21-32); Chloride 96.0 mmol/L (98-107); Creatinine Clr Calc Pharmacy 115.4 ml/min; Glucose 117.0 mg/dl (70-99(Fasting)); Magnesium 1.5 mg/dl (1.7-2.4); Potassium 3.9 mmol/L (3.5-5.1); Sodium 133.0 mmol/L (136-145)
--- NOTE | 2025-09-22 09:45 | Electrocardiogram Report ---
Test Reason : Blood Pressure : */* mmHG Vent. Rate : 66 BPM Atrial Rate : 66 BPM P-R Int : 150 ms QRS Dur : 90 ms QT Int : 406 ms P-R-T Axes : 56 54 73 degrees QTcB Int : 425 ms Poor data quality, interpretation may be adversely affected Sinus rhythm with Premature atrial complexes Otherwise normal ECG When compared with ECG of 11-Apr-2025 13:20, Premature atrial complexes are now Present Confirmed by Alejandro Lopez ([id number]) on 09/22/2025 9:45:37 AM Referred By: REFERRED SELF Confirmed By: Alejandro Lopez
--- NOTE | 2025-09-22 09:49 | Communication Note ---
Date of Service: September 22, 2025 Patient seen and evaluated Reports mechanical fall at home while walking with her walker and something caught on her foot Denied loss of consciousness Currently reports severe left hip/thigh pain Reports her good friend/neighbor helps her at home with making food etc Planned for OR today Currently NPO Continue pain management Will get PT/OT post op. Will likely need rehab Other plans as detailed in H&P this AM
[2025-09-22] MEDS ORDERED: PROMETHAZINE HCL 6.25 MG in SODIUM CHLORIDE 0.9% 50 ML IV PRN (12:06)
[2025-09-22] MEDS ORDERED: ATROPINE SULFATE 0.1 MG/ML 10ML SYR IV PRN (12:06)
--- NOTE | 2025-09-22 12:10 | History & Physical Bridge Note ---
Date of Service September 22, 2025 History & Physical Bridge Note I have examined the patient, reviewed the History & Physical and in the interval since the performance of the History & Physical I have noted the following changes of clinical significance: no changes noted
[2025-09-22] MEDS ORDERED: LIDOCAINE 2% 2 ML VIAL/AMP(20MG/ML) INFIL ONE (12:13)
[2025-09-22] MEDS ORDERED: DEXAMETHASONE SOD INJ 4 MG/ML VIAL ONE (12:13)
[2025-09-22] MEDS ORDERED: ROCURONIUM BROMIDE 10 MG/ML 5 ML VIAL IV ONE (12:13)
[2025-09-22] MEDS ORDERED: ONDANSETRON INJ 2 MG/ML 2 ML VIAL ONE (12:13)
[2025-09-22] MEDS ORDERED: PROPOFOL IV EMULSION 10 MG/ML 20 ML VIAL IV ONE (12:13)
[2025-09-22] MEDS ORDERED: ceFAZolin 330 MG/ML 1 GM VIAL ONE (12:37)
[2025-09-22] MEDS ORDERED: ePHEDrine sulfate 50 MG/5 ML SYR ONE (13:05)
[2025-09-22] MEDS ORDERED: SUGAMMADEX SODIUM 200 MG/2 ML VIAL IV ONE (13:28)
[2025-09-22] MEDS ORDERED: PHENYLEPHRINE 100MCG/ML 5ML SYR ONE (13:29)
[2025-09-22] MEDS: BUPIVACAINE/EPINEPHRINE 0.5% MPF 1:200,000 30 ML VIAL ONE (13:30)
[2025-09-22] MEDS: TRANEXAMIC ACID / 0.7% NACL 1000MG/100ML BAG IV ONE (13:34)
--- NOTE | 2025-09-22 13:34 | Operative Report ---
PG Post Operative Report Pre & Post Diagnosis Operation Date: 09/22/25 11:00 Pre-Op Diagnosis: Closed left femoral fracture Post-Op Diagnosis: Closed left femoral fracture I identified the patient and participated in the time-out.: Yes Procedure Operation Date: 09/22/25 11:00 Actual Procedures p Left Trochanteric Femoral Nail(Left) - Ayad Reza DO Surgeon Ayad Reza DO Laboratory Analyst Yo Wills PA-C Estimated Blood Loss 100 Findings Consistent with Post-Op Diagnosis Specimens None Description of Procedure On September 22, 2025 Lashawn was brought down from her hospital room to the preoperative holding area. The operative extremity identified and signed. She was given a preoperative antibiotic and TXA. She was taken back to the operating room and put under general anesthesia. She was then transferred to a fracture table. The left hip was brought out to traction. Fluoroscopic images were used to reduce the hip. Once the hip was reduced the left hip was prepped and draped sterile fashion. A timeout was done. The patient and the operative extremity was properly identified. A longitudinal incision was made just superior to the greater trochanter. Dissection was taken down through the fascia. The tip of the greater trochanter was identified. A guidepin was then placed from the tip of the greater troch anteric down the femoral canal. Appropriate placement of the pin was checked on orthogonal fluoroscopic images. A 16 mm opening reamer was then used to open the femoral canal. The femoral canal was then reamed up to a size 12 mm reamer. An 11 mm short TFN nail was then impacted into place. A small lateral incision was made for the lag screw cannula. The cannula for the lag screw was then adv anced to the lateral femoral cortex. A guidepin was then placed near the center center position of the femoral head. Due to the fracture pattern, I treated the pain a little more superior to avoid a reverse oblique fracture pattern. The helical blade measured to be 85 mm. The lateral cortex was reamed. An 85 mm helical blade was then impacted into place. The helical blade was then locked. A single distal locking screw was then placed. Final fluoroscopic images showed good alignment of the fracture and appropriate placement of the hardware. Final pictures were taken. The incision sites were irrigated. Surrounding soft tissue was injected with 30 cc of Marcaine. The deep fascia was closed with #1 Vicryl. The deep subcutaneous layer was then closed with #1 Vicryl. Skin was closed with 2-0 Vicryl and jose raul. She was then placed in a soft dressing. She was then extubated and transferred back to a hospital bed. She was taken to the postanesthesia care unit in stable condition. She tolerated the procedure well. Yo Wills PA-C, was present for the entire procedure. He was critical for patient positioning, prepping, draping, retraction exposure, wound closure and application of sterile dressing. I attest to the content of the Intraoperative Record and any orders documented therein. Any exceptions are noted below.
[2025-09-22] MEDS: KETOROLAC TROMETHAMINE 15 MG/ML VIAL IV PRN (14:04)
[2025-09-22] MEDS: HYDROmorphone INJ 1 MG/ML SYRINGE IV PRN (14:12)
--- NOTE | 2025-09-22 14:46 | Anesthesiology Progress Note ---
Date of Service September 22, 2025 Anesthesia Post Procedure Vital Signs Vital Signs: Temp Pulse Pulse Pulse Resp BP BP 09/22/25 14:35 37.1 C 63 16 150/84 H 09/22/25 14:25 64 16 148/70 H 09/22/25 14:15 69 14 149/74 H 09/22/25 13:56 36.7 C 71 14 179/76 H 09/22/25 13:05 72 16 152/76 H 09/22/25 10:30 09/22/25 08:15 36.2 C L 71 16 164/81 H 09/22/25 07:15 09/22/25 06:37 36.6 C 75 18 179/103 H 09/22/25 05:58 09/22/25 04:00 74 18 176/83 H 09/22/25 02:11 09/22/25 02:10 36.8 C 85 20 146/62 H 09/22/25 02:09 66 09/22/25 02:05 09/22/25 02:05 Pulse Ox O2 Del Method O2 Flow Rate 09/22/25 14:35 93 Nasal Cannula 2 09/22/25 14:25 95 Nasal Cannula 3 09/22/25 14:15 96 Oxymask 5 09/22/25 13:56 97 Oxymask 12 09/22/25 13:05 99 Oxymask 8 09/22/25 10:30 Nasal Cannula 3 09/22/25 08:15 95 Nasal Cannula 09/22/25 07:15 Nasal Cannula 3 09/22/25 06:37 95 Room Air, Nasal Cannula 3 09/22/25 05:58 Nasal Cannula 3 09/22/25 04:00 93 Nasal Cannula 3 09/22/25 02:11 94 Nasal Cannula 2 09/22/25 02:10 89 L Room Air 09/22/25 02:09 09/22/25 02:05 89 L Room Air 09/22/25 02:05 89 L Room Air Pain Intensity Left Hip: Pain Intensity: 4 Transfer of Care Handoff Completed per policy Notes Mental Status: alert / awake / arousable Patient Amnestic to Procedure: Yes Nausea / Vomiting: adequately controlled Pain: adequately controlled Airway Patency, RR, SpO2: stable & adequate BP & HR: stable & adequate Hydration State: stable & adequate Anesthetic Complications: no major complications apparent
[2025-09-22] MEDS: ACETAMINOPHEN 1,000 MG/100 ML VIAL IV PRN (16:40)
[2025-09-23 05:01] LABS: Hematocrit (blood only) 28.7 % (37.0-47.0); Hemoglobin 9.6 g/dL (12.0-16.0); Immature Granulocytes # (auto) 0.04 K/uL (0.01-0.20); Immature Granulocytes % (auto) 0.4 %; Mean Corpuscular Hemoglobin 28.8 pg (25.0-34.0); Mean Corpuscular Volume 86.2 fL (80.0-100.0); Platelet Count 203 K/uL (130-400); RDW Standard Deviation 48.4 fL (36.4-46.3); Red Blood Count 3.33 M/uL (4.20-5.40); White Blood Count 8.97 K/ul (4.8-10.8)
[2025-09-23 05:17] LABS: Anion Gap 5.0 (3-11); Blood Urea Nitrogen 16.0 mg/dl (6-23); Calcium 8.3 mg/dl (8.6-10.3); Carbon Dioxide 29.0 mmol/L (21-32); Chloride 100.0 mmol/L (98-107); Creatinine Clr Calc Pharmacy 93.4 ml/min; Glucose 97.0 mg/dl (70-99(Fasting)); Potassium 3.8 mmol/L (3.5-5.1); Prealbumin 18.1 mg/dl (20-40); Sodium 134.0 mmol/L (136-145)
--- NOTE | 2025-09-23 07:25 | Fluoroscopy Report ---
FL hip LT 2-3V CLINICAL HISTORY: LT TROCH NAILacute fracture of the left hip COMPARISON STUDY: CT left hip 09/22/2025 FLUOROSCOPY TIME: 55.4 seconds FLUOROSCOPY IMAGES: 4 EXPOSURE DOSE: 20.991 mGy FINDINGS: Status post placement of an intertrochanteric nail with medullary jareth fixating the acute an d comminuted intratrochanteric fracture. There is improved alignment. No unexpected opaque foreign joaquín dies identified. [id number] osteoarthritis of the left hip. IMPRESSION: Fluoroscopic assistance as above. ACT 112: Negative or not required by law. Electronically signed by: Tyler Gonzalez M.D. 09/23/2025 7:24 AM
--- NOTE | 2025-09-23 09:07 | Orthopedic Progress Note ---
Date of Service September 23, 2025 Assessment & Plan (1) Intertrochanteric fracture of left femur: * Continue Current Treatment * S/p left TFN * Weight bearing status: WBAT * Daily treatment: Physical Therapy/ Occupational Therapy per protocol * Pain control * Continue to monitor for ABLA * DVT prophylaxis, ok to resume from ortho standpoint, recommend Eliquis 2.5 BID on discharge * Disposition: TBD * Office/hospital f/u 2 weeks for progress check and staple/suture removal * Remainder care per primary team Subjective . Active Problems: S/p L TFN POD 1 69 y/o female s/p left TFN. Teary/emotional this morning, combination of pain as well as not receiving her depression/anxiety medications. Denies fever/chills, chest pain/SOB, nausea/vomiting. Otherwise no complaints. Review of Systems All systems reviewed & are unremarkable except as noted in HPI & below. Physical Exam . * General: Alert and oriented, no acute distress * Constitutional: well-developed, well-nourished. * Respiratory: Normal respiratory effort, no distress * Gastrointestinal: No tenderness to palpation, no rigidity or guarding. * Skin: No rash or lesion. * Neurologic: Grossly normal * Musculoskeletal: left hip surgical dressing CDI, not removed for exam. Otherwise no obvious deformity or overlying skin changes. Diffuse TTP proximal thigh and hip region. Otherwise no specific tenderness of distal thigh, lower leg, foot/ankle. AROM hip flexion intact. AROM foot/ankle intact. Sensation intact plantar/dorsal foot. Brisk capillary refill. Results & Data Results & Data Laboratory Results . Diagnostic Findings . Hip X-Ray 09/22/25 00:00 FL hip LT 2-3V CLINICAL HISTORY: LT TROCH NAILacute fracture of the left hip COMPARISON STUDY: CT left hip 09/22/2025 FLUOROSCOPY TIME: 55.4 seconds FLUOROSCOPY IMAGES: 4 EXPOSURE DOSE: 20.991 mGy FINDINGS: Status post placement of an intertrochanteric nail with medullary jareth fixating the acute and comminuted intratrochanteric fracture. There is improved alignment. No unexpected opaque foreign bodies identified. [id number] osteoarthritis of the left hip. IMPRESSION: Fluoroscopic assistance as above. ACT 112: Negative or not required by law. Electronically signed by: Tyler Gonzalez M.D. 09/23/2025 7:24 AM PG Care Time/CCT Total # of Minutes Spent Total Time Spent with Patient: Total time spent is greater than 50% in coordination of care (as documented) at patient's floor/unit and/or counseling patient: Coding Level of Care Code 69008 Post Operative Follow-Up Diagnoses Intertrochanteric fracture of left femur S72.142A
--- NOTE | 2025-09-23 11:27 | Hospitalist Progress Note ---
Date of Service September 23, 2025 Assessment & Plan (1) Closed left femoral fracture: Plan: 69-year-old female with past medical history significant for dyslipidemia, mild COPD, pulmonary hypertension, hypertension, aneurysm of ascending aorta, grade 1 diastolic function, atherosclerosis of [place] coronary artery, obesity, degenerative disease, depression, PTSD, generalized anxiety disorder, medical marijuana use, ambulatory dysfunction who lives alone at home and ambulates with a walker presents with mechanical fall while walking with her walker and found to have left femur fracture. Fall at home Closed left femur fracture Hip CT noted acute comminuted intertrochanteric fracture of left femur with displaced fractures of the greater and lesser trochanters and fracture lines extending superiorly in the neck region and laterally in the proximal shaft of the femur with surrounding small bone fragments and hemorrhagic fluid collection with soft tissue thickening. CT head no acute findings CT cervical spine no acute findings Right humerus x-ray no acute findings Chest x-ray no acute findings EKG no acute findings S/P Left Trochanteric Femoral Nail on 09/22/25 POD 1 Optimize pain control PT/OT eval WBAT LLE Hb is 9.6 this AM (from 11.8 yesterday) Will recheck Hb today prior to starting pharmacological DVT ppx Mild COPD Continue home inhalers Nebs as needed Hypertension On amlodipine and hydrochlorothiazide Will monitor Hyperlipidemia On statin Depression PTSD Generalized anxiety disorder On bupropion, buspirone, Zoloft, trazodone and hydroxyzine as needed Ambulatory dysfunction Uses walker at home DVT prophylaxis - Plan to start pharm DVT ppx once Hb recheck is stable Full code. I spent a total of 50 minutes coordinating, documenting and providing care for this patient excluding time spent in performance of separately billed services Admission and Anticipated Discharge Date Admission Date: September 22, 2025 Subjective Patient seen and examined Reports significant pain in left hip Stated she feels overwhelmed and became tearful during my eval Denied depression/SI Denied any other complaints on ROS Physical Exam Constitutional: + well hydrated and + obese; no acute di stress Eyes: PERRL, conjunctivae normal, anicteric sclerae ENMT: external ear and nose normal, oropharynx normal Respiratory: normal respiratory effort, lungs clear to auscultation Cardiovascular: Rate/Rhythm: regular rate and regular rhythm Gastrointestinal (Abdomen): normal bowel sounds, soft, nontender, no hepatosplenomegaly Musculoskeletal: clean dressing over left hip surgical site Neurologic: PERRL, EOMI, accommodation nl, no face palsy, no dysarthria Psychiatric: AOx3 Results & Data Results & Data Vital Signs (Past 12 Hours) Vital Signs Temp Pulse Resp BP Pulse Ox O2 Del Method O2 Flow Rate 09/23/25 09:33 69 18 92 Nasal Cannula 2 09/23/25 09:33 81 L Room Air 09/23/25 08:26 36.8 C 69 16 118/71 92 Room Air 09/23/25 05:00 37.2 C 64 18 113/67 91 Room Air 09/23/25 01:00 36.6 C 66 18 148/73 H 95 Room Air, Nasal Cannula Laboratory Results Abnormal lab results 09/23/25 Range/Units 04:38 RBC 3.33 L (4.20-5.40) M/uL Hgb 9.6 L (12.0-16.0) g/dL Hct 28.7 L (37.0-47.0) % RDW Std Deviation 48.4 H (36.4-46.3) fL RDW Coeff of Jimi 15.3 H (11.5-14.5) % MPV 9.3 L (9.4-12.4) fL Catron # (Auto) 1.04 H (0.11-0.59) K/uL Sodium 134 L (136-145) mmol/L BUN/Creatinine Ratio 25.4 H (10-20) Calcium 8.3 L (8.6-10.3) mg/dl Prealbumin 18.1 L (20-40) mg/dl 25-OH Vitamin D Total 23.7 L (30-100) ng/ml (1) Closed left femoral fracture Encounter type: initial encounter Femur location: intertrochanteric Fracture alignment: displaced Qualified Code(s): S72.142A - Displaced intertrochanteric fracture of left femur, initial encounter for closed fracture
[2025-09-23 17:28] LABS: Hematocrit (blood only) 27.2 % (37.0-47.0); Hemoglobin 9.2 g/dL (12.0-16.0)
[2025-09-23] MEDS: HEPARIN SOD 5,000 UNIT/0.5 ML VIAL SQ SCH (21:34)
[2025-09-24 07:54] LABS: Hematocrit (blood only) 28.4 % (37.0-47.0); Hemoglobin 9.4 g/dL (12.0-16.0); Mean Corpuscular Hemoglobin 28.6 pg (25.0-34.0); Mean Corpuscular Volume 86.3 fL (80.0-100.0); Platelet Count 191 K/uL (130-400); RDW Standard Deviation 48.6 fL (36.4-46.3); Red Blood Count 3.29 M/uL (4.20-5.40); White Blood Count 9.51 K/ul (4.8-10.8)
[2025-09-24 08:16] LABS: Anion Gap 6.0 (3-11); Blood Urea Nitrogen 11.0 mg/dl (6-23); Calcium 8.5 mg/dl (8.6-10.3); Carbon Dioxide 31.0 mmol/L (21-32); Chloride 98.0 mmol/L (98-107); Creatinine Clr Calc Pharmacy 117.7 ml/min; Glucose 109.0 mg/dl (70-99(Fasting)); Potassium 3.7 mmol/L (3.5-5.1); Sodium 135.0 mmol/L (136-145)
--- NOTE | 2025-09-24 08:44 | Orthopedic Progress Note ---
Date of Service September 24, 2025 Assessment & Plan (1) Intertrochanteric fracture of left femur: * Continue Current Treatment * S/p left TFN * Weight bearing status: WBAT * Daily treatment: Physical Therapy/ Occupational Therapy per protocol * Pain control * Continue to monitor for ABLA * DVT prophylaxis, ok to resume from ortho standpoint, recommend Eliquis 2.5 BID on discharge * Disposition: TBD, rehab recommended- pt would like referral to [facility] - case management following. * Office/hospital f/u 2 weeks for progress check and staple/suture removal * Remainder care per primary team Subjective Active Problems: S/p L TFN POD 2 69 y/o female s/p left TFN 09/22/[address] Reza. Teary/emotional this morning, combination of pain as well as not receiving her depression/anxiety medications. Denies fever/chills, chest pain/SOB, nausea/vomiting. Otherwise no complaints. Review of Systems All systems reviewed & are unremarkable except as noted in HPI & below. Physical Exam . * General: Alert and oriented, no acute distress * Constitutional: well-developed, well-nourished. * Respiratory: Normal respiratory effort, no distress * Gastrointestinal: No tenderness to palpation, no rigidity or guarding. * Skin: No rash or lesion. * Neurologic: Grossly normal * Musculoskeletal: left hip surgical dressing CDI, not removed for exam. Otherwise no obvious deformity or overlying skin changes. Diffuse TTP proximal thigh and hip region. Otherwise no specific tenderness of distal thigh, lower leg, foot/ankle. AROM hip flexion intact. AROM foot/ankle intact. Sensation intact plantar/dorsal foot. Brisk capillary refill. Results & Data Results & Data Laboratory Results . Laboratory Results - last 24 hr 09/23/25 09/24/25 16:36 07:14 WBC 9.51 RBC 3.29 L Hgb 9.2 L 9.4 L Hct 27.2 L 28.4 L MCV 86.3 MCH 28.6 MCHC 33.1 RDW Std Deviation 48.6 H RDW Coeff of Jimi 15.3 H Plt Count 191 MPV 9.5 Sodium 135 L Potassium 3.7 Chloride 98 Carbon Dioxide 31 Anion Gap 6 BUN 11 Creatinine 0.50 L Est Cr Clr Drug Dosing 117.7 eGFR 100.84 BUN/Creatinine Ratio 22.0 H Glucose 109 H Calcium 8.5 L Diagnostic Findings . Hip X-Ray 09/22/25 00:00 FL hip LT 2-3V CLINICAL HISTORY: LT TROCH NAILacute fracture of the left hip COMPARISON STUDY: CT left hip 09/22/2025 FLUOROSCOPY TIME: 55.4 seconds FLUOROSCOPY IMAGES: 4 EXPOSURE DOSE: 20.991 mGy FINDINGS: Status post placement of an intertrochanteric nail with medullary jareth fixating the acute and comminuted intratrochanteric fracture. There is improved alignment. No unexpected opaque foreign bodies identified. [id number] osteoarthritis of the left hip. IMPRESSION: Fluoroscopic assistance as above. ACT 112: Negative or not required by law. Electronically signed by: Tyler Gonzalez M.D. 09/23/2025 7:24 AM Chest X-Ray 09/22/25 02:05 EXAM: XR chest 1V portable CLINICAL HISTORY: Fall. TECHNIQUE: An X-ray image of the chest is obtained in AP projection. COMPARISON: Compared to the previous chest x-ray study, dated 04/11/2025. FINDINGS: Pulmonary Parenchyma: Lungs are clear bilaterally. No evidence of consolidation, collapse, or focal opacities. No pulmonary nodules are identified. No evidence of pleural effusion or pleural thickening. Heart and Mediastinum: Heart size and shape are normal. No mediastinal widening or masses. No hilar or mediastinal lymphadenopathy. Bony Thorax: Spinal fixation at lower cervical vertebrae and mid-thoracic vertebrae. Soft Tissues: Soft tissues overlying the chest wall are unremarkable. IMPRESSION: 1. No acute cardiopulmonary abnormalities are identified. 2. Interval resolution of the left lower lung zone opacity. Electronically signed by Earl Rodriguez 09-22-2025 03:51 AM Hip/Pelvis X-Ray 09/22/25 02:05 EXAM: XR hip LT 2V w pelvis CLINICAL HISTORY: Fall. TECHNIQUE: X-ray images of the left hip joint in AP and lateral projection. COMPARISON: 09/20/2025 X-ray. FINDINGS: Hip Joints: Comminuted fracture involving the left femoral neck with extension into the intertrochanteric region and proximal femoral shaft (subtrochanteric component). Fracture fragments are mildly displaced with areas of impaction. This represents a new finding. Mild degenerative changes are present in both hip joints. Sacroiliac Joints: Sacroiliac joints are normal in appearance. No evidence of sacroiliitis or significant degenerative change. Symphysis Pubis: Symphysis pubis is intact. No diastasis or widening identified. Soft Tissues: Visualized soft tissues are unremarkable. No abnormal swelling, calcification, or soft tissue mass. Additional Findings: No other significant abnormalities are identified. IMPRESSION: 1. Acute comminuted fracture of the left femoral neck with intertrochanteric and subtrochanteric extension, demonstrating mild displacement and impaction. This represents a new finding. 2. Mild bilateral hip joint degenerative changes. Disclaimer: A subtle bone abnormality or fracture may not be readily apparent on X-rays, thus clinical correlation and further imaging including follow-up CT, MRI, or follow-up X-rays are advised as needed. Electronically signed by Earl Rodriguez 09-22-2025 03:49 AM Humerus X-Ray 09/22/25 02:05 EXAM: XR humerus RT 2V CLINICAL HISTORY: Fall TECHNIQUE: X-ray images of the right humerus were obtained in anteroposterior (AP) and lateral projections. COMPARISON: No prior studies available for comparison. FINDINGS: Bone Structure: Normal osseous alignment. No evidence of acute fracture or dislocation. The humerus is intact without focal lytic or sclerotic lesions. Joint Spaces: Narrowing of the glenohumeral and acromioclavicular joint spaces with associated subchondral sclerosis and multiple marginal osteophytes, consistent with degenerative changes. Mild degenerative changes involving the elbow joint. Small focal calcification at the superior aspect of the shoulder joint space, suggestive of a loose body versus calcific tendinitis. No joint effusion or subluxation identified. Soft Tissues: A tiny subcutaneous radiopaque focus at the dorsal aspect of the elbow joint, likely representing nonspecific cutaneous calcification; a foreign body is less likely. Clinical correlation is advised. IMPRESSION: 1. No acute osseous abnormality. 2. Tiny subcutaneous radiopaque focus at the dorsal elbow, likely nonspecific cutaneous calcification; foreign body less likely. Clinical correlation is advised. 3. 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 4. Small calcific focus at the superior shoulder joint space, likely a loose body versus calcific tendinitis. 5. Mild degenerative changes of the elbow joint. Disclaimer: A subtle bone abnormality or fracture may not be readily apparent on X-rays, thus clinical correlation and further imaging, including follow-up CT, MRI, or follow-up X-rays, are advised as needed. Electronically signed by Earl Rodriguez 09-22-2025 03:[address] 09/22/25 02:07 EXAM: CT cervical spine wo con CLINICAL HISTORY: Fall. TECHNIQUE: CT scan of the cervical spine was performed without the administration of intravenous contrast. Contiguous axial images were obtained from the skull base to the upper thoracic spine. Coronal and sagittal reformatted images were also reviewed. One of the following dose reduction techniques was utilized for this exam. Automated exposure control, adjustment of the mA and/or kV according to patient size, and use of iterative reconstruction. COMPARISON: 12/27/2023 CT. FINDINGS: Vertebrae: No evidence of acute fracture in the cervical spine. 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 Satisfactory alignment of the metallic hardware is identified. Loss of cervical lordosis with straightening of curvature. Multilevel anterior and posterior osteophytes with uncovertebral hypertrophy noted. Atlantodental osteoarthritic changes. Diffuse osteopenic changes noted. Intervertebral Discs: Fusion of intervertebral disc spaces. Posterior osteophytes resulting in variable degrees of neural foraminal narrowing, exaggerated by facetal arthropathy, predominantly in lower cervical levels. Facet Joints: Severe degenerative changes. Prevertebral Soft Tissues: The prevertebral soft tissues are normal in thickness without evidence of mass or abnormal fluid collection. Additional Findings: Visualized sections of upper thorax show no significant abnormality. Atherosclerotic carotid calcifications. IMPRESSION: 1. No evidence of acute fracture in the cervical spine. 2. 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 3. Cervical spondylodegenerative changes as described above Electronically signed by Earl Rodriguez 09-22-2025 04:[address] 09/22/25 02:07 EXAM: CT head/brain wo con CLINICAL HISTORY: Fall TECHNIQUE: Axial non-contrast CT scan of the brain was performed from the skull base to the high parietal region. One of the following dose reduction techniques were utilized for this exam: Automated exposure control, adjustment of the mA and/or kV according to patient size, use of iterative reconstruction. COMPARISON: 08/15/2023 FINDINGS: Artifacts decreasing the diagnostic sensitivity of the examination. Brain Parenchyma: There are ill-defined iso-to hypodense areas in the subcortical and periventricular white matter bilaterally, representing chronic microvascular ischemic changes. The rest of the visualized brain parenchyma shows normal appearance. No intracerebral or extra axial hematoma. Ventricular System: Prominent ventricular system. Subarachnoid Spaces: The cortical sulci and basal cisterns are prominent, consistent with senile changes. 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 Temporal evolution noted. Rest unremarkable. Orbits: Normal appearance of the globes, optic nerves, and extraocular muscles. No evidence of orbital masses or abnormal density. Visualised Paranasal sinuses: Mild to moderate opacification of the ethmoid air cells with minimal mucosal thickening in right maxillary and left frontal sinuses. Small right sphenoid polyp/retention cyst. Mastoid Air Cells: Clear mastoid air cells. Skull and soft tissue: Normal skull morphology. IMPRESSION: 1. No acute intracranial traumatic injury in plain CT head at present 2. Chronic microvascular ischemic changes and senile cortical atrophy, mild interval progression since prior CT study dated 08/15/2023 Electronically signed by Earl Rodriguez 09-22-2025 04:[address] 09/22/25 02:34 EXAM: CT hip LT wo con CLINICAL HISTORY: Fracture, fall. TECHNIQUE: Multiple, contiguous, nonenhanced CT scan of the left hip joint in axial plane with multiplanar reconstructions. One of the following dose reduction techniques was utilized for this exam: Automated exposure control, adjustment of the mA and/or kV according to patient size, and use of iterative reconstruction. COMPARISON: CR same date 09/22/2025 01:40:00 PENSION EXAMINER reviewed FINDINGS: Bones: Acute comminuted intertrochanteric fracture of left femur with displaced fractures of greater and lesser trochanters and fracture lines extending superiorly in the neck region and laterally in the proximal shaft of femur with surrounding small bone fragments and hemorrhagic fluid collection with soft tissue thickening. Joint: Internal rotation of left femoral head. No evidence of dislocation of left hip joint. Mild left hip osteoarthritic changes. Soft Tissues: Vastus intermedius muscle on left side appears bulky with a possible hematoma. Soft tissue thickening with hemorrhagic fluid collection surrounding the fractured site. Incidental atherosclerotic calcification seen in visualized vessels. IMPRESSION: 1. Acute comminuted intertrochanteric fracture of left femur with displaced fractures of greater and lesser trochanters and fracture lines extending superiorly in the neck region and laterally in the proximal shaft of femur with surrounding small bone fragments and hemorrhagic fluid collection with soft tissue thickening. The findings concur with recent CR. 2. Internal rotation of left femoral head. 3. No evidence of dislocation of left hip joint. 4. Mild left hip osteoarthritic changes. 5. Vastus intermedius muscle on left side appears bulky with a possible hematoma. Electronically signed by Earl Rodriguez 09-22-2025 04:01 AM PG Care Time/CCT Total # of Minutes Spent Total Time Spent with Patient: Total time spent is greater than 50% in coordination of care (as documented) at patient's floor/unit and/or counseling patient: Coding Level of Care Code 27651 Post Operative Follow-Up Diagnoses Intertrochanteric fracture of left femur S72.142A
[2025-09-24] MEDS: ACETAMINOPHEN 500 MG TAB PO PRN (09:52)
[2025-09-24] MEDS: ACETAMINOPHEN 500 MG TAB PO SCH (10:07)
--- NOTE | 2025-09-24 13:59 | Hospitalist Progress Note ---
Date of Service September 24, 2025 Assessment & Plan (1) Closed left femoral fracture: Plan: Tertiary Survey: Objective: Lab Review: Hb is stable in 9s post op Imaging Review: On admission, Hip CT noted acute comminuted intertrochanteric fracture of left femur with displaced fractures of the greater and lesser trochanters and fracture lines extending superiorly in the neck region and laterally in the proximal shaft of the femur with surrounding small bone fragments and hemorrhagic fluid collection with soft tissue thickening. Physical Exam: General: - Alert: [Yes] - Oriented: [Yes] - GCS 15: [Yes] HEENT: - No pain/tenderness. - No lacerations/abrasions - No numbness/tingling - PERLAA. No nystagmus. Normal hearing. No facial asymmetry. Normal palatal elevation, uvula midline. Midline tongue protrusion. - Mucous membranes moist. Neck: - Midline Tenderness: No - Cleared C-Spine: Yes Thorax: - Pain/Tenderness: None - Lacerations/Abrasions: None - Swelling/Ecchymosis: None - Air/Bony Crepitus: None Cardiopulmonary: - Regular Rate and Rhythm. S1 S2 - Breath sounds CTAB. No wheezes, rales, or rhonchi. - Symmetrical Chest Rise Abdomen - Pain/Tenderness: None - Lacerations/Abrasions: None - No abdominal distension - Abdominal rigidity/guarding: None - Bowel Sounds: Present, normal - Pelvis stable Back/Spine - Lacerations/Abrasions: None - Pain/Tenderness: None - Step-offs: None Extremities: -UE: No deformity. No lacerations/abrasions. No swelling/ecchymosis. No pain/tenderness. Full ROM. -LLE: Clean dressing over left hip surgical site. Limited ROM due to pain Mental status Adequate for Full Exam: Yes C-Spine Cleared (Radiologically AND Clinically): Yes Plan 69-year-old female with past medical history significant for dyslipidemia, mild COPD, pulmonary hypertension, hypertension, aneurysm of ascending aorta, grade 1 diastolic function, atherosclerosis of [place] coronary artery, obesity, degenerative disease, depression, PTSD, generalized anxiety disorder, medical marijuana use, ambulatory dysfunction who lives alone at home and ambulates with a walker presents with mechanical fall while walking with her walker and found to have left femur fracture. Fall at home Closed left femur fracture Hip CT noted acute comminuted intertrochanteric fracture of left femur with displaced fractures of the greater and lesser trochanters and fracture lines extending superiorly in the neck region and laterally in the proximal shaft of the femur with surrounding small bone fragments and hemorrhagic fluid collection with soft tissue thickening. CT head no acute findings CT cervical spine no acute findings Right humerus x-ray no acute findings Chest x-ray no acute findings EKG no acute findings S/P Left Trochanteric Femoral Nail on 09/22/25 POD 2 Optimize pain control PT/OT eval - rehab recommended WBAT LLE Hb is 9.4 this AM. Stable in 9s Ortho recommends eliquis 2.5mg BID for DVT prophylaxis after hip surgery. Started Mild COPD Continue home inhalers Nebs as needed Hypertension On amlodipine and hydrochlorothiazide Will monitor Hyperlipidemia On statin Depression PTSD Generalized anxiety disorder On bupropion, buspirone, Zoloft, trazodone and hydroxyzine as needed Ambulatory dysfunction Uses walker at home DVT prophylaxis - Eliquis Full code. CM working on rehab/SNF I spent a total of 50 minutes coordinating, documenting and providing care for this patient excluding time spent in performance of separately billed services Admission and Anticipated Discharge Date Admission Date: September 22, 2025 Subjective Patient seen and examined Reports left hip pain especially with movement Pain is improving with medications Physical Exam Physical Exam: Refer to Tertiary Trauma survey below Results & Data Results & Data Vital Signs (Past 12 Hours) Vital Signs Temp Pulse Resp BP Pulse Ox O2 Del Method O2 Flow Rate 09/24/25 08:54 Nasal Cannula 2 09/24/25 07:20 36.9 C 73 16 115/76 91 Nasal Cannula 2 09/24/25 06:00 37.3 C 71 14 125/82 93 Nasal Cannula 2 Laboratory Results Abnormal lab results 09/23/25 09/24/25 Range/Units 16:36 07:14 RBC 3.29 L (4.20-5.40) M/uL Hgb 9.2 L 9.4 L (12.0-16.0) g/dL Hct 27.2 L 28.4 L (37.0-47.0) % RDW Std Deviation 48.6 H (36.4-46.3) fL RDW Coeff of Jimi 15.3 H (11.5-14.5) % Sodium 135 L (136-145) mmol/L Creatinine 0.50 L (0.6-1.2) mg/dl BUN/Creatinine Ratio 22.0 H (10-20) Glucose 109 H (70-99(Fasting)) mg/dl Calcium 8.5 L (8.6-10.3) mg/dl (1) Closed left femoral fracture Encounter type: initial encounter Femur location: intertrochanteric Fracture alignment: displaced Qualified Code(s): S72.142A - Displaced intertrochanteric fracture of left femur, initial encounter for closed fracture
[2025-09-24] MEDS: BACLOFEN 10 MG TAB PO PRN (19:26)
[2025-09-24] MEDS: APIXABAN 2.5 MG TAB PO SCH (19:29)
[2025-09-25 07:11] LABS: Hematocrit (blood only) 26.7 % (37.0-47.0); Hemoglobin 8.8 g/dL (12.0-16.0); Mean Corpuscular Hemoglobin 28.9 pg (25.0-34.0); Mean Corpuscular Volume 87.5 fL (80.0-100.0); Platelet Count 184 K/uL (130-400); RDW Standard Deviation 48.3 fL (36.4-46.3); Red Blood Count 3.05 M/uL (4.20-5.40); White Blood Count 8.19 K/ul (4.8-10.8)
--- NOTE | 2025-09-25 08:08 | Orthopedic Progress Note ---
Date of Service September 25, 2025 Assessment & Plan (1) Intertrochanteric fracture of left femur: * Continue Current Treatment * S/p left TFN * Weight bearing status: WBAT * Daily treatment: Physical Therapy/ Occupational Therapy per protocol * Pain control * Continue to monitor for ABLA * DVT prophylaxis, ok to resume from ortho standpoint, recommend Eliquis 2.5 BID on discharge * Disposition: TBD, rehab recommended * Office/hospital f/u 2 weeks for progress check and staple/suture removal * Remainder care per primary team, will follow peripherally Subjective Active Problems: S/p L TFN POD 3 69 y/o female s/p left TFN 09/22/[address] Reza. Remains quite emotionally labile, limited time out of bed so far per patient. Denies fever/chills, chest pain/SOB, nausea/vomiting. Otherwise no complaints. Review of Systems All systems reviewed & are unremarkable except as noted in HPI & below. Physical Exam * Musculoskeletal: left hip surgical dressing CDI, not removed for exam. Otherwise no obvious deformity or overlying skin changes. Diffuse TTP proximal thigh and hip region. Otherwise no specific tenderness of distal thigh, lower leg, foot/ankle. AROM hip flexion intact. AROM foot/ankle intact. Sensation intact plantar/dorsal foot. Brisk capillary refill. Results & Data Results & Data Laboratory Results . Diagnostic Findings . PG Care Time/CCT Total # of Minutes Spent Total Time Spent with Patient: Total time spent is greater than 50% in coordination of care (as documented) at patient's floor/unit and/or counseling patient: Coding Level of Care Code 97110 Post Operative Follow-Up Diagnoses Intertrochanteric fracture of left femur S72.142A
[2025-09-25 08:11] LABS: Anion Gap 7.0 (3-11); Blood Urea Nitrogen 15.0 mg/dl (6-23); Calcium 8.6 mg/dl (8.6-10.3); Carbon Dioxide 32.0 mmol/L (21-32); Chloride 98.0 mmol/L (98-107); Creatinine Clr Calc Pharmacy 120.1 ml/min; Glucose 98.0 mg/dl (70-99(Fasting)); Potassium 3.7 mmol/L (3.5-5.1); Sodium 137.0 mmol/L (136-145)
[2025-09-25] MEDS: ERGOCALCIFEROL 1250 MCG (50,000 UNITS) CAP PO SCH (10:47)
[2025-09-25] MEDS: POLYETHYLENE (MIRALAX) 17 GM PACK PO SCH (13:16)
--- NOTE | 2025-09-25 15:02 | Hospitalist Progress Note ---
Date of Service September 25, 2025 Assessment & Plan (1) Closed left femoral fracture: Plan as per previous hospitalist notes with addendum: 69-year-old female with past medical history significant for dyslipidemia, mild COPD, pulmonary hypertension, hypertension, aneurysm of ascending aorta, grade 1 diastolic function, atherosclerosis of [place] coronary artery, obesity, degenerative disease, depression, PTSD, generalized anxiety disorder, medical marijuana use, ambulatory dysfunction who lives alone at home and ambulates with a walker presents with mechanical fall while walking with her walker and found to have left femur fracture. Fall at home Closed left femur fracture Hip CT noted acute comminuted intertrochanteric fracture of left femur with displaced fractures of the greater and lesser trochanters and fracture lines extending superiorly in the neck region and laterally in the proximal shaft of the femur with surrounding small bone fragments and hemorrhagic fluid collection with soft tissue thickening. CT head no acute findings CT cervical spine no acute findings Right humerus x-ray no acute findings Chest x-ray no acute findings EKG no acute findings S/P Left Trochanteric Femoral Nail on 09/22/25 POD 2 [employer] pain control PT/OT eval - rehab recommended WBAT LLE Hb is 9.4 this AM. Stable in 9s Ortho recommends eliquis 2.5mg BID for DVT prophylaxis after hip surgery. Started 09/25 pain [id number], increased Oxycodone to q4h prn Hg 8.8, monitor PT/OT eval Eliquis for DVT prophylaxis Mild COPD Continue home inhalers Nebs as needed Hypertension On amlodipine and hydrochlorothiazide Will monitor Hyperlipidemia On statin Depression PTSD Generalized anxiety disorder On bupropion, buspirone, Zoloft, trazodone and hydroxyzine as needed Ambulatory dysfunction Uses walker at home DVT prophylaxis - Eliquis Full code. CM working on rehab/SNF Admission and Anticipated Discharge Date Admission Date: September 22, 2025 Subjective seen resting in bed, not in distress reports significant pain over L hip surgical site today pain medication not lasting long enough no chest pain, dyspnea, palpitations, dizziness no other symptoms Review of Systems Review of Systems: all noted and negative except for above Physical Exam Physical Exam: General- oriented x 3, not in distress, speaks in sentences with no effort or accessory muscle use Eyes- anicteric Neck- no JVD Lungs- clear breath sounds bilaterally, no rales/wheezes Heart- normal rate, regular rhythm; no murmurs Abdomen- normal bowel sounds, nondistended, soft, nontender Extremities- no pretibial edema, no calf tenderness L hiP: dressing in place- no bleeding or discharge Neuro- alert, oriented x 3; no gross focal neurologic deficits Skin- warm & dry Results & Data Results & Data Vital Signs (Past 12 Hours) Vital Signs Temp Pulse Resp BP Pulse Ox O2 Del Method O2 Flow Rate 09/25/25 10:46 94 09/25/25 07:10 37.4 C 65 18 112/61 94 Nasal Cannula 3 all noted and reviewed including below (1) Closed left femoral fracture Encounter type: initial encounter Femur location: intertrochanteric Fracture alignment: displaced Qualified Code(s): S72.142A - Displaced intertrochanteric fracture of left femur, initial encounter for closed fracture
[2025-09-26] MEDS ORDERED: LACTULOSE SYRUP 20 GM/30 ML UDC PO PRN (11:11)
[2025-09-26 11:24] LABS: Hematocrit (blood only) 27.5 % (37.0-47.0); Hemoglobin 9.1 g/dL (12.0-16.0); Immature Granulocytes # (auto) 0.03 K/uL (0.01-0.20); Immature Granulocytes % (auto) 0.4 %; Mean Corpuscular Hemoglobin 28.6 pg (25.0-34.0); Mean Corpuscular Volume 86.5 fL (80.0-100.0); Platelet Count 235 K/uL (130-400); RDW Standard Deviation 47.1 fL (36.4-46.3); Red Blood Count 3.18 M/uL (4.20-5.40); White Blood Count 7.13 K/ul (4.8-10.8)
[2025-09-26] MEDS: LACTULOSE SYRUP 20 GM/30 ML UDC PO ONE (11:47)
--- NOTE | 2025-09-26 15:13 | Hospitalist Progress Note ---
Date of Service September 26, 2025 Assessment & Plan (1) Closed left femoral fracture: Plan as per previous hospitalist notes with addendum: 69-year-old female with past medical history significant for dyslipidemia, mild COPD, pulmonary hypertension, hypertension, aneurysm of ascending aorta, grade 1 diastolic function, atherosclerosis of [place] coronary artery, obesity, degenerative disease, depression, PTSD, generalized anxiety disorder, medical marijuana use, ambulatory dysfunction who lives alone at home and ambulates with a walker presents with mechanical fall while walking with her walker and found to have left femur fracture. Fall at home Closed left femur fracture Hip CT noted acute comminuted intertrochanteric fracture of left femur with displaced fractures of the greater and lesser trochanters and fracture lines extending superiorly in the neck region and laterally in the proximal shaft of the femur with surrounding small bone fragments and hemorrhagic fluid collection with soft tissue thickening. CT head no acute findings CT cervical spine no acute findings Right humerus x-ray no acute findings Chest x-ray no acute findings EKG no acute findings S/P Left Trochanteric Femoral Nail on 09/22/25 POD 2 [facility] pain control PT/OT eval - rehab recommended WBAT LLE Hb is 9.4 this AM. Stable in 9s Ortho recommends eliquis 2.5mg BID for DVT prophylaxis after hip surgery. Started 09/25 pain [id number], increased Oxycodone to q4h prn Hg 8.8, monitor PT/OT eval Eliquis for DVT prophylaxis 09/26 Hg stable continue PT/OT Eliquis for DVT px Mild COPD Continue home inhalers Nebs as needed --on o2 supplement no wheezing incentive spirometry encouraged Hypertension On amlodipine and hydrochlorothiazide Will monitor Hyperlipidemia On statin Depression PTSD Generalized anxiety disorder On bupropion, buspirone, Zoloft, trazodone and hydroxyzine as needed Ambulatory dysfunction Uses walker at home DVT prophylaxis - Eliquis Full code. CM working on rehab/SNF Admission and Anticipated Discharge Date Admission Date: September 22, 2025 Subjective seen resting in bed, comfortable states she feels fine overall pain better today no chest pain, dyspnea, palpitations, dizziness no other symptoms Review of Systems Review of Systems: all noted and negative except for above Physical Exam Physical Exam: General- oriented x 3, not in distress, speaks in sentences with no effort or accessory muscle use Eyes- anicteric Neck- no JVD Lungs- clear breath sounds bilaterally, no rales/wheezes Heart- normal rate, regular rhythm; no murmurs Abdomen- normal bowel sounds, nondistended, soft, nontender Extremities- no pretibial edema, no calf tenderness Neuro- alert, oriented x 3; no gross focal neurologic deficits Skin- warm & dry Results & Data Results & Data Vital Signs (Past 12 Hours) Vital Signs Temp Pulse Resp BP Pulse Ox O2 Del Method O2 Flow Rate 09/26/25 13:34 92 Nasal Cannula 2 09/26/25 13:00 89 L Room Air 09/26/25 08:52 Nasal Cannula 1 09/26/25 07:00 36.7 C 58 L 16 150/79 H 94 Nasal Cannula all noted and reviewed including below (1) Closed left femoral fracture Encounter type: initial encounter Femur location: intertrochanteric Fracture alignment: displaced Qualified Code(s): S72.142A - Displaced intertrochanteric fracture of left femur, initial encounter for closed fracture
[2025-09-27] MEDS: ONDANSETRON INJ 2 MG/ML 2 ML VIAL IV PRN (06:08)
--- NOTE | 2025-09-27 15:05 | Hospitalist Progress Note ---
Date of Service September 27, 2025 Assessment & Plan (1) Closed left femoral fracture: Plan as per previous hospitalist notes with addendum: 69-year-old female with past medical history significant for dyslipidemia, mild COPD, pulmonary hypertension, hypertension, aneurysm of ascending aorta, grade 1 diastolic function, atherosclerosis of [place] coronary artery, obesity, degenerative disease, depression, PTSD, generalized anxiety disorder, medical marijuana use, ambulatory dysfunction who lives alone at home and ambulates with a walker presents with mechanical fall while walking with her walker and found to have left femur fracture. Fall at home Closed left femur fracture Hip CT noted acute comminuted intertrochanteric fracture of left femur with displaced fractures of the greater and lesser trochanters and fracture lines extending superiorly in the neck region and laterally in the proximal shaft of the femur with surrounding small bone fragments and hemorrhagic fluid collection with soft tissue thickening. CT head no acute findings CT cervical spine no acute findings Right humerus x-ray no acute findings Chest x-ray no acute findings EKG no acute findings S/P Left Trochanteric Femoral Nail on 09/22/25 POD 2 [employer] pain control PT/OT eval - rehab recommended WBAT LLE Hb is 9.4 this AM. Stable in 9s Ortho recommends eliquis 2.5mg BID for DVT prophylaxis after hip surgery. Started 09/27 stable overall Hg stable continue PT/OT Eliquis for DVT px Mild COPD Continue home inhalers Nebs as needed -- currently on 2 L o2 supplement no wheezing incentive spirometry encouraged Hypertension On amlodipine and hydrochlorothiazide Will monitor Hyperlipidemia On statin Depression PTSD Generalized anxiety disorder On bupropion, buspirone, Zoloft, trazodone and hydroxyzine as needed Ambulatory dysfunction Uses walker at home DVT prophylaxis - Eliquis Full code. CM working on rehab/SNF Admission and Anticipated Discharge Date Admission Date: September 22, 2025 Subjective seen resting in bed, uncomfortable due to hip pain no chest pain, dyspnea, palpitations, dizziness no other symptoms Review of Systems Review of Systems: all noted and negative except for above Physical Exam Physical Exam: General- oriented x 3, not in distress, speaks in sentences with no effort or accessory muscle use Eyes- anicteric Neck- no JVD Lungs- clear breath sounds bilaterally Heart- normal rate, regular rhythm; no murmurs Abdomen- normal bowel sounds, nondistended, soft, nontender Extremities- no pretibial edema, no calf tenderness l hip: dressing in place, no bleeding Neuro- alert, oriented x 3; no gross focal neurologic deficits Skin- warm & dry Results & Data Results & Data Vital Signs (Past 12 Hours) Vital Signs Temp Pulse Resp BP BP Pulse Ox O2 Del Method 09/27/25 14:51 36.6 C 60 20 128/85 91 Nasal Cannula 09/27/25 07:30 Nasal Cannula 09/27/25 07:13 36.7 C 66 18 114/63 91 Nasal Cannula O2 Flow Rate 09/27/25 14:51 1 09/27/25 07:30 1 09/27/25 07:13 1 all noted and reviewed including below (1) Closed left femoral fracture Encounter type: initial encounter Femur location: intertrochanteric Fracture alignment: displaced Qualified Code(s): S72.142A - Displaced intertrochanteric fracture of left femur, initial encounter for closed fracture
--- NOTE | 2025-09-28 09:32 | Hospitalist Progress Note ---
Date of Service September 28, 2025 Assessment & Plan (1) Closed left femoral fracture: Plan 69-year-old female with past medical history significant for dyslipidemia, mild COPD, pulmonary hypertension, hypertension, aneurysm of ascending aorta, grade 1 diastolic dysfunction, atherosclerosis of [place] coronary artery, obesity, degenerative disease, depression, PTSD, generalized anxiety disorder, medical marijuana use and ambulatory dysfunction who lives at home and ambulates with a walker who presented to the ED on 09/22/25 with L hip pain s/p mechanical fall and was found to have an acute L femur fracture. L hip XR with pelv: Acute comminuted fracture of the left femoral neck with intertrochanteric and subtrochanteric extension, demonstrating mild displacement and impaction. L hip CT: Acute comminuted intertrochanteric fracture of left femur with displaced fractures of greater and lesser trochanters and fracture lines extending superiorly in the neck region and laterally in the proximal shaft of femur with surrounding small bone fragments and hemorrhagic fluid collection with soft tissue thickening. Additional trauma imaging including head CT, L shoulder XR, cervical spine CT without evidence of acute findings on presentation. Closed L femur fracture s/p mechanical fall at home S/p L TFN on 09/[address] Ayad Reza Appreciate ortho recs: WBAT LLE, DVT prophylaxis with Eliquis 2.5mg BID Continue PRN analgesia PT/OT recommending rehab >> accepted by [facility], will need insurance auth (no beds avail until tomorrow or Tue per CM) On 2L NC postop, attempting to wean off this afternoon Postop constipation No BM in about 7 days per pt this AM >> trial lactulose; if no success, will then consider suppository vs enema -- d/w RN Continue MiraLAX daily, stool softener added on this AM Acute blood loss anemia ISO above Tolerating anticoagulation w/o issue, H/H remains overall stable Continue to monitor H/H Possible hematoma noted on L hip CT L hip CT: vastus intermedius muscle on left side appears bulky with a possible hematoma H/H overall stable as per above, continue anticoagulation as per ortho HTN BP stable Continue antiHTNs Mild COPD No s/sx acute exacerbation Weaning off postop supplemental O2 as per above Continue home inhalers ISP encouraged HLD Continue statin Depression PTSD Generalized anxiety disorder On bupropion, buspirone, Zoloft, trazodone and hydroxyzine PRN QTc 425ms on presenting EKG Was tearful this afternoon Admits to feeling overwhelmed with healing course; no suicidal ideations PRN po Ativan low dose added on to trial DVT Prophylaxis: Faviola PCP: Zion Guzman MD Disposition: Stable for DC once rehab placement becomes available Patient seen in collaboration with Dr. Lay. Please see addendum. I spent a total of 38 minutes coordinating, documenting, and providing care for this patient excluding time spent in the performance of separately billed services or time spent by another provider/QHP. This included personally reviewing all current laboratories and imaging studies, medical reconciliation, outpatient chart review and discussion with specialists. Admission and Anticipated Discharge Date Admission Date: September 22, 2025 Supervising Physician Co-Signing Physician Notes I have seen and discussed the case with the collaborating advanced practitioner. I agree with the above PN I have reviewed and confirmed the patients medical history, the findings on physical examination, and the patients diagnosis and treatment plan with Jennifer AMIN and agree with the information documented. Reports pain initially this am, but reports notable improvement overall. Understands she is just awaiting placement. Bowel regimen added. I spent a total of 15 minutes coordinating, documenting, and providing care for this patient excluding time spent in the performance of separately billed services. All of the aforementioned completed outside of collaborating with the assigned advanced practitioner for a full treatment plan. I have reviewed the advanced practitioner's documentation, and I agree with, and take responsibility for the plan of care Subjective Patient seen and examined in room W353-1. No reported BM in 1 week. Continues to pass flatus however. Tolerating diet without issue. Denies any abdominal pain or bloating. Tearful affect. Admits to feeling frustrated with the healing process from her injury. Makes her feel quite anxious. Denies any suicidal thoughts. Review of Systems Review of Systems: At least ten systems reviewed and negative, except as noted in the subjective section. Physical Exam Physical Exam: General: Obese F, NAD, sitting up in bed, A&Ox3, tearful affect HEENT: Normocephalic, atraumatic, moist mucous membranes Respiratory: Normal respiratory effort, CTAB Cardiovascular: RRR, normal peripheral pulses, no BLE edema Abdomen/GI: Active bowel sounds, soft, nontender to palpation in all quadrants Extremities/Musculoskeletal: L hip dressing C/D/I Neurologic: No overt focal deficits Results & Data Results & Data Vital Signs (Past 12 Hours) Vital Signs Temp Pulse Resp BP Pulse Ox O2 Del Method O2 Flow Rate 09/28/25 07:41 Room Air 09/28/25 07:09 36.7 C 72 16 139/72 92 Nasal Cannula 1 09/27/25 22:51 36.8 C 65 18 126/64 91 Nasal Cannula 1 Laboratory Results Short CBC 09/28/25 Range/Units 09:57 WBC 7.34 (4.8-10.8) K/ul Hgb 8.9 L (12.0-16.0) g/dL Hct 26.9 L (37.0-47.0) % Plt Count 277 (130-400) K/uL Diagnostic Findings Hip X-Ray 09/22/25 00:00 FL hip LT 2-3V CLINICAL HISTORY: LT TROCH NAILacute fracture of the left hip COMPARISON STUDY: CT left hip 09/22/2025 FLUOROSCOPY TIME: 55.4 seconds FLUOROSCOPY IMAGES: 4 EXPOSURE DOSE: 20.991 mGy FINDINGS: Status post placement of an intertrochanteric nail with medullary jareth fixating the acute and comminuted intratrochanteric fracture. There is improved alignment. No unexpected opaque foreign bodies identified. [id number] osteoarthritis of the left hip. IMPRESSION: Fluoroscopic assistance as above. ACT 112: Negative or not required by law. Electronically signed by: Tyler Gonzalez M.D. 09/23/2025 7:24 AM Chest X-Ray 09/22/25 02:05 EXAM: XR chest 1V portable CLINICAL HISTORY: Fall. TECHNIQUE: An X-ray image of the chest is obtained in AP projection. COMPARISON: Compared to the previous chest x-ray study, dated 04/11/2025. FINDINGS: Pulmonary Parenchyma: Lungs are clear bilaterally. No evidence of consolidation, collapse, or focal opacities. No pulmonary nodules are identified. No evidence of pleural effusion or pleural thickening. Heart and Mediastinum: Heart size and shape are normal. No mediastinal widening or masses. No hilar or mediastinal lymphadenopathy. Bony Thorax: Spinal fixation at lower cervical vertebrae and mid-thoracic vertebrae. Soft Tissues: Soft tissues overlying the chest wall are unremarkable. IMPRESSION: 1. No acute cardiopulmonary abnormalities are identified. 2. Interval resolution of the left lower lung zone opacity. Electronically signed by Earl Rodriguez 09-22-2025 03:51 AM Hip/Pelvis X-Ray 09/22/25 02:05 EXAM: XR hip LT 2V w pelvis CLINICAL HISTORY: Fall. TECHNIQUE: X-ray images of the left hip joint in AP and lateral projection. COMPARISON: 09/20/2025 X-ray. FINDINGS: Hip Joints: Comminuted fracture involving the left femoral neck with extension into the intertrochanteric region and proximal femoral shaft (subtrochanteric component). Fracture fragments are mildly displaced with areas of impaction. This represents a new finding. Mild degenerative changes are present in both hip joints. Sacroiliac Joints: Sacroiliac joints are normal in appearance. No evidence of sacroiliitis or significant degenerative change. Symphysis Pubis: Symphysis pubis is intact. No diastasis or widening identified. Soft Tissues: Visualized soft tissues are unremarkable. No abnormal swelling, calcification, or soft tissue mass. Additional Findings: No other significant abnormalities are identified. IMPRESSION: 1. Acute comminuted fracture of the left femoral neck with intertrochanteric and subtrochanteric extension, demonstrating mild displacement and impaction. This represents a new finding. 2. Mild bilateral hip joint degenerative changes. Disclaimer: A subtle bone abnormality or fracture may not be readily apparent on X-rays, thus clinical correlation and further imaging including follow-up CT, MRI, or follow-up X-rays are advised as needed. Electronically signed by Earl Rodriguez 09-22-2025 03:49 AM Humerus X-Ray 09/22/25 02:05 EXAM: XR humerus RT 2V CLINICAL HISTORY: Fall TECHNIQUE: X-ray images of the right humerus were obtained in anteroposterior (AP) and lateral projections. COMPARISON: No prior studies available for comparison. FINDINGS: Bone Structure: Normal osseous alignment. No evidence of acute fracture or dislocation. The humerus is intact without focal lytic or sclerotic lesions. Joint Spaces: Narrowing of the glenohumeral and acromioclavicular joint spaces with associated subchondral sclerosis and multiple marginal osteophytes, consistent with degenerative changes. Mild degenerative changes involving the elbow joint. Small focal calcification at the superior aspect of the shoulder joint space, suggestive of a loose body versus calcific tendinitis. No joint effusion or subluxation identified. Soft Tissues: A tiny subcutaneous radiopaque focus at the dorsal aspect of the elbow joint, likely representing nonspecific cutaneous calcification; a foreign body is less likely. Clinical correlation is advised. IMPRESSION: 1. No acute osseous abnormality. 2. Tiny subcutaneous radiopaque focus at the dorsal elbow, likely nonspecific cutaneous calcification; foreign body less likely. Clinical correlation is advised. 3. 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 4. Small calcific focus at the superior shoulder joint space, likely a loose body versus calcific tendinitis. 5. Mild degenerative changes of the elbow joint. Disclaimer: A subtle bone abnormality or fracture may not be readily apparent on X-rays, thus clinical correlation and further imaging, including follow-up CT, MRI, or follow-up X-rays, are advised as needed. Electronically signed by Earl Rodriguez 09-22-2025 03:[address] 09/22/25 02:07 EXAM: CT cervical spine wo con CLINICAL HISTORY: Fall. TECHNIQUE: CT scan of the cervical spine was performed without the administration of intravenous contrast. Contiguous axial images were obtained from the skull base to the upper thoracic spine. Coronal and sagittal reformatted images were also reviewed. One of the following dose reduction techniques was utilized for this exam. Automated exposure control, adjustment of the mA and/or kV according to patient size, and use of iterative reconstruction. COMPARISON: 12/27/2023 CT. FINDINGS: Vertebrae: No evidence of acute fracture in the cervical spine. 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 Satisfactory alignment of the metallic hardware is identified. Loss of cervical lordosis with straightening of curvature. Multilevel anterior and posterior osteophytes with uncovertebral hypertrophy noted. Atlantodental osteoarthritic changes. Diffuse osteopenic changes noted. Intervertebral Discs: Fusion of intervertebral disc spaces. Posterior osteophytes resulting in variable degrees of neural foraminal narrowing, exaggerated by facetal arthropathy, predominantly in lower cervical levels. Facet Joints: Severe degenerative changes. Prevertebral Soft Tissues: The prevertebral soft tissues are normal in thickness without evidence of mass or abnormal fluid collection. Additional Findings: Visualized sections of upper thorax show no significant abnormality. Atherosclerotic carotid calcifications. IMPRESSION: 1. No evidence of acute fracture in the cervical spine. 2. 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 3. Cervical spondylodegenerative changes as described above Electronically signed by Earl Rodriguez 09-22-2025 04:[address] 09/22/25 02:07 EXAM: CT head/brain wo con CLINICAL HISTORY: Fall TECHNIQUE: Axial non-contrast CT scan of the brain was performed from the skull base to the high parietal region. One of the following dose reduction techniques were utilized for this exam: Automated exposure control, adjustment of the mA and/or kV according to patient size, use of iterative reconstruction. COMPARISON: 08/15/2023 FINDINGS: Artifacts decreasing the diagnostic sensitivity of the examination. Brain Parenchyma: There are ill-defined iso-to hypodense areas in the subcortical and periventricular white matter bilaterally, representing chronic microvascular ischemic changes. The rest of the visualized brain parenchyma shows normal appearance. No intracerebral or extra axial hematoma. Ventricular System: Prominent ventricular system. Subarachnoid Spaces: The cortical sulci and basal cisterns are prominent, consistent with senile changes. 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 Temporal evolution noted. Rest unremarkable. Orbits: Normal appearance of the globes, optic nerves, and extraocular muscles. No evidence of orbital masses or abnormal density. Visualised Paranasal sinuses: Mild to moderate opacification of the ethmoid air cells with minimal mucosal thickening in right maxillary and left frontal sinuses. Small right sphenoid polyp/retention cyst. Mastoid Air Cells: Clear mastoid air cells. Skull and soft tissue: Normal skull morphology. IMPRESSION: 1. No acute intracranial traumatic injury in plain CT head at present 2. Chronic microvascular ischemic changes and senile cortical atrophy, mild interval progression since prior CT study dated 08/15/2023 Electronically signed by Earl Rodriguez 09-22-2025 04:[address] 09/22/25 02:34 EXAM: CT hip LT wo con CLINICAL HISTORY: Fracture, fall. TECHNIQUE: Multiple, contiguous, nonenhanced CT scan of the left hip joint in axial plane with multiplanar reconstructions. One of the following dose reduction techniques was utilized for this exam: Automated exposure control, adjustment of the mA and/or kV according to patient size, and use of iterative reconstruction. 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 Joint: Internal rotation of left femoral head. No evidence of dislocation of left hip joint. Mild left hip osteoarthritic changes. Soft Tissues: Vastus intermedius muscle on left side appears bulky with a possible hematoma. Soft tissue thickening with hemorrhagic fluid collection surrounding the fractured site. Incidental atherosclerotic calcification seen in visualized vessels. IMPRESSION: 1. Acute comminuted intertrochanteric fracture of left femur with displaced fractures of greater and lesser trochanters and fracture lines extending superiorly in the neck region and laterally in the proximal shaft of femur with surrounding small bone fragments and hemorrhagic fluid collection with soft tissue thickening. The findings concur with recent CR. 2. Internal rotation of left femoral head. 3. No evidence of dislocation of left hip joint. 4. Mild left hip osteoarthritic changes. 5. Vastus intermedius muscle on left side appears bulky with a possible hematoma. Electronically signed by Earl Rodriguez 09-22-2025 04:01 AM (1) Closed left femoral fracture Encounter type: initial encounter Femur location: intertrochanteric Fracture alignment: displaced Qualified Code(s): S72.142A - Displaced intertrochanteric fracture of left femur, initial encounter for closed fracture
[2025-09-28 10:14] LABS: Hematocrit (blood only) 26.9 % (37.0-47.0); Hemoglobin 8.9 g/dL (12.0-16.0); Mean Corpuscular Hemoglobin 28.6 pg (25.0-34.0); Mean Corpuscular Volume 86.5 fL (80.0-100.0); Platelet Count 277 K/uL (130-400); RDW Standard Deviation 47.0 fL (36.4-46.3); Red Blood Count 3.11 M/uL (4.20-5.40); White Blood Count 7.34 K/ul (4.8-10.8)
[2025-09-28] MEDS: LACTULOSE SYRUP 20 GM/30 ML UDC PO STA (14:25)
[2025-09-28] MEDS: LORazepam 0.5 MG TAB PO PRN (14:28)
[2025-09-28] MEDS: DOCUSATE SODIUM/SENNA 50/8.6MG TAB PO SCH (14:45)
[2025-09-29 06:37] LABS: Hematocrit (blood only) 28.9 % (37.0-47.0); Hemoglobin 9.5 g/dL (12.0-16.0); Mean Corpuscular Hemoglobin 28.7 pg (25.0-34.0); Mean Corpuscular Volume 87.3 fL (80.0-100.0); Platelet Count 293 K/uL (130-400); RDW Standard Deviation 47.2 fL (36.4-46.3); Red Blood Count 3.31 M/uL (4.20-5.40); White Blood Count 5.83 K/ul (4.8-10.8)
--- NOTE | 2025-09-29 10:26 | Hospitalist Progress Note ---
Date of Service September 29, 2025 Assessment & Plan (1) Closed left femoral fracture: Plan Ms. Ragland is 69-year-old female with past medical history significant for dyslipidemia, mild COPD, pulmonary hypertension, hypertension, aneurysm of ascending aorta, grade 1 diastolic dysfunction, atherosclerosis of [place] coronary artery, obesity, degenerative disease, depression, PTSD, generalized anxiety disorder, medical marijuana use and ambulatory dysfunction who lives at home and ambulates with a walker who presented to the ED on 09/22/25 with L hip pain s/p mechanical fall and was found to have an acute L femur fracture. L hip XR with pelv: Acute comminuted fracture of the left femoral neck with intertrochanteric and subtrochanteric extension, demonstrating mild displacement and impaction. L hip CT: Acute comminuted intertrochanteric fracture of left femur with d isplaced fractures of greater and lesser trochanters and fracture lines extending superiorly in the neck region and laterally in the proximal shaft of femur with surrounding small bone fragments and hemorrhagic fluid collection with soft tissue thickening. Additional trauma imaging including head CT, L shoulder XR, cervical spine CT without evidence of acute findings on presentation. #Closed L femur fracture s/p mechanical fall at home #S/p L TFN on 09/[address] Ayad Reza Appreciate ortho recs: WBAT LLE, DVT prophylaxis with Eliquis 2.5mg BID Continue PRN analgesia PT/OT recommending rehab >> accepted by [facility], will need insurance auth (no beds avail until tomorrow or Tue per CM) on room air #Postop constipation continue bowel regimen Continue MiraLAX daily, stool softener added on this AM #Acute blood loss anemia ISO above stable Tolerating anticoagulation w/o issue, H/H remains overall stable Continue to monitor H/H #Possible hematoma noted on L hip CT L hip CT: vastus intermedius muscle on left side appears bulky with a possible hematoma H/H overall stable as per above, continue anticoagulation as per ortho #HTN BP stable Continue antiHTNs #Mild COPD No s/sx acute exacerbation Weaning off postop supplemental O2 as per above Continue home inhalers ISP encouraged #HLD Continue statin #Depression #PTSD #Generalized anxiety disorder On bupropion, buspirone, Zoloft, trazodone and hydroxyzine PRN QTc 425ms on presenting EKG Was tearful this afternoon Admits to feeling overwhelmed with healing course; no suicidal ideations PRN po Ativan low dose added on to trial DVT Prophylaxis: Faviola PCP: Zion Guzman MD Disposition: Stable for DC once rehab placement becomes available Admission and Anticipated Discharge Date Admission Date: September 22, 2025 Subjective Tearful this morning regarding desire to want to get better, stronger, and go to rehab states the pain medicine helps, she just feels frustrated that it hurts to the exercises Physical Exam Constitutional: WD/WN, vitals as above tearful initially Respiratory: normal respiratory effort, lungs clear to auscultation Cardiovascular: RRR, no murmur, no edema Gastrointestinal (Abdomen): normal bowel sounds, soft, nontender, no hepatosplenomegaly Results & Data Results & Data Vital Signs (Past 12 Hours) Vital Signs Temp Pulse Resp BP Pulse Ox O2 Del Method O2 Flow Rate 09/29/25 09:16 Room Air 09/29/25 07:10 36.8 C 60 16 120/79 91 Nasal Cannula 1 (1) Closed left femoral fracture Encounter type: initial encounter Femur location: intertrochanteric Fracture alignment: displaced Qualified Code(s): S72.142A - Displaced intertrochanteric fracture of left femur, initial encounter for closed fracture
--- NOTE | 2025-09-30 17:37 | Hospitalist Progress Note ---
Date of Service September 30, 2025 Assessment & Plan (1) Closed left femoral fracture: Plan Ms. Ragland is 69-year-old female with past medical history significant for dyslipidemia, mild COPD, pulmonary hypertension, hypertension, aneurysm of ascending aorta, grade 1 diastolic dysfunction, atherosclerosis of [place] coronary artery, obesity, degenerative disease, depression, PTSD, generalized anxiety disorder, medical marijuana use and ambulatory dysfunction who lives at home and ambulates with a walker who presented to the ED on 09/22/25 with L hip pain s/p mechanical fall and was found to have an acute L femur fracture. L hip XR with pelv: Acute comminuted fracture of the left femoral neck with intertrochanteric and subtrochanteric extension, demonstrating mild displacement and impaction. L hip CT: Acute comminuted intertrochanteric fracture of left femur with d isplaced fractures of greater and lesser trochanters and fracture lines extending superiorly in the neck region and laterally in the proximal shaft of femur with surrounding small bone fragments and hemorrhagic fluid collection with soft tissue thickening. Additional trauma imaging including head CT, L shoulder XR, cervical spine CT without evidence of acute findings on presentation. #Closed L femur fracture s/p mechanical fall at home #S/p L TFN on 09/[address] Ayad Reza Appreciate ortho recs: WBAT LLE, DVT prophylaxis with Eliquis 2.5mg BID Continue PRN analgesia PT/OT recommending rehab >> accepted by [facility], will need insurance auth on room air -- accepted to SNF as per CM, tow picker tomorrow #Postop constipation continue bowel regimen Continue MiraLAX daily, stool softener added -- (+) BMs #Acute blood loss anemia ISO above stable Tolerating anticoagulation w/o issue, H/H remains overall stable Continue to monitor H/H #Possible hematoma noted on L hip CT L hip CT: vastus intermedius muscle on left side appears bulky with a possible hematoma H/H overall stable as per above, continue anticoagulation as per ortho #HTN BP stable Continue antiHTNs #Mild COPD No s/sx acute exacerbation Weaning off postop supplemental O2 as per above Continue home inhalers ISP encouraged #HLD Continue statin #Depression #PTSD #Generalized anxiety disorder On bupropion, buspirone, Zoloft, trazodone and hydroxyzine PRN QTc 425ms on presenting EKG Was tearful this afternoon Admits to feeling overwhelmed with healing course; no suicidal ideations PRN po Ativan low dose added on to trial DVT Prophylaxis: Faviola PCP: Zion Guzman MD Disposition: Stable for DC to SNF tomorrow Admission and Anticipated Discharge Date Admission Date: September 22, 2025 Subjective seen resting in chair, comfortable states she feels fine overall (+) BMs yesterday and today no abdominal pain no chest pain, dyspnea, palpitations, dizziness L hip pain relieved by analgesics no other symptoms Review of Systems Review of Systems: all noted and negative except for above Physical Exam Physical Exam: General- oriented x 3, not in distress, speaks in sentences with no effort or accessory muscle use Eyes- anicteric Neck- no JVD Lungs- clear breath sounds bilaterally Heart- normal rate, regular rhythm; no murmurs Abdomen- normal bowel sounds, nondistended, soft, nontender Extremities- no pretibial edema, no calf tenderness L hip: dressing in place- no bleeding or discharge Neuro- alert, oriented x 3; no gross focal neurologic deficits Skin- warm & dry Results & Data Results & Data Vital Signs (Past 12 Hours) Vital Signs Temp Pulse Resp BP Pulse Ox O2 Del Method O2 Flow Rate 09/30/25 14:24 36.6 C 57 L 16 109/63 95 Nasal Cannula 1 09/30/25 11:47 95 1 09/30/25 10:56 Room Air 09/30/25 10:49 95 09/30/25 07:15 36.5 C 57 L 16 130/88 93 Room Air all noted and reviewed including below (1) Closed left femoral fracture Encounter type: initial encounter Femur location: intertrochanteric Fracture alignment: displaced Qualified Code(s): S72.142A - Displaced intertrochanteric fracture of left femur, initial encounter for closed fracture
[2025-09-30] MEDS ORDERED: NYSTATIN POWDER 15GM BTL EXT PRN (18:40)
[2025-10-01 09:11] VITALS: BP 148/80; PULSE 56; RESP 20; TEMP 98.1; O2SAT 97
--- NOTE | 2025-10-01 19:39 | Discharge Summary ---
Discharge Summary Date of Service October 01, 2025 Principal Dx & Hospital Course #1 = Principal Diagnosis (1) Closed left femoral fracture: Plan Ms. Ragland is 69-year-old female with past medical history significant for dyslipidemia, mild COPD, pulmonary hypertension, hypertension, aneurysm of ascending aorta, grade 1 diastolic dysfunction, atherosclerosis of tanana coronary artery, obesity, degenerative disease, depression, PTSD, generalized anxiety disorder, medical marijuana use and ambulatory dysfunction who lives at home and ambulates with a walker who presented to the ED on 09/22/25 with L hip pain s/p mechanical fall and was found to have an acute L femur fracture. L hip XR with pelv: Acute comminuted fracture of the left femoral neck with intertrochanteric and subtrochanteric extension, demonstrating mild displacement and impaction. L hip CT: Acute comminuted intertrochanteric fracture of left femur with displaced fractures of greater and lesser trochanters and fracture lines extending superiorly in the neck region and laterally in the proximal shaft of femur with surrounding small bone fragments and hemorrhagic fluid collection with soft tissue thickening. Additional trauma imaging including head CT, L shoulder XR, cervical spine CT without evidence of acute findings on presentation. Patient s/p TFN on 09/22 and post operative course prolonged awaiting placement On day of discharge patient eager for rehab. She denies any other acute concerns. #Closed L femur fracture s/p mechanical fall at home #S/p L TFN on 09/[address] Ayad Reza Appreciate ortho recs: WBAT LLE, DVT prophylaxis with Eliquis 2.5mg BID Continue PRN analgesia PT/OT recommending rehab >> accepted by [facility], will need insurance auth on room air -- accepted to SNF, discharged #Postop constipation continue bowel regimen Continue MiraLAX daily, stool softener added -- (+) BMs #Acute blood loss anemia ISO above stable Tolerating anticoagulation w/o issue, H/H remains overall stable Continue to monitor H/H #Possible hematoma noted on L hip CT L hip CT: vastus intermedius muscle on left side appears bulky with a possible hematoma H/H overall stable as per above, continue anticoagulation as per ortho #HTN BP stable Continue antiHTNs #Mild COPD No s/sx acute exacerbation Weaning off postop supplemental O2 as per above Continue home inhalers ISP encouraged #HLD Continue statin #Depression #PTSD #Generalized anxiety disorder On bupropion, buspirone, Zoloft, trazodone and hydroxyzine PRN QTc 425ms on presenting EKG Was tearful this afternoon Admits to feeling overwhelmed with healing course; no suicidal ideations Notes For Next Care Provider Medication Changes From Visit apixaban 2.5mg bid Admission HPI Per Admitting Provider 69-year-old female with past medical history significant for dyslipidemia, mild COPD, pulmonary hypertension, hypertension, aneurysm of ascending aorta, grade 1 diastolic function, atherosclerosis of tanana coronary artery, obesity, degenerative disease, depression, PTSD, generalized anxiety disorder, medical marijuana use, ambulatory dysfunction who lives alone at home and ambulates with a walker presents with fall and left femur fracture. Patient states she was walking with a walker to go to bathroom and thinks something stuck her legs and she fell down on the left side and also hit the back of the head. She could not get up. She called ambulance and was brought in here. Denies any headache currently. Having pain in the left hip region. No runny nose or sore throat. Currently no cough. Denies any chest pain. No shortness of breath. No nausea. No abdominal pain. Appetite is okay. Afebrile. Normal bowel and bladder movements. Patient's oxygen was 89% percent on room air requiring 3 L oxygen. Past medical history. As mentioned above. Past surgical history. Cervical arthroplasty. Colonoscopy with biopsy. Dilatation curettage. EGD. Thoracic kyphoplasty. Appendectomy. Thoracic T7-8 fusion. Inguinal hernia repair. Vaginal hysterectomy. Social history. Lives alone. Quit smoking 2022. Smoked 0.5 pack a day for 15 years. No alcohol use. Has medical marijuana. Family history. Father had COPD. Mother had cervical cancer. Dementia. Hypertension. Skin cancer. Maternal grandmother had diabetes. Son has arthritis. Admission Exam Per Admitting Provider General- Not in distress. Tearful. Head- atraumatic Eyes- PERRL. ENT- oropharynx dry Neck- supple, no JVD,. Lungs- clear to auscultation no wheezing or crackles Heart- regular rhythm; no murmur, no gallop. Abdomen- normal bowel sounds, soft, nontender, no distension Extremities- no pretibial edema, left leg slightly shortened Neuro- alert, oriented PERRL, no facial palsy; no dysarthria; can move extremities Discharge Exam Constitutional WD/WN, vitals as above Respiratory normal respiratory effort, lungs clear to auscultation Cardiovascular RRR, no murmur, no edema Gastrointestinal (Abdomen) normal bowel sounds, soft, nontender, no hepatosplenomegaly Updated Medication List Medication Instructions Recorded Confirmed Type albuterol sulfate 90 mcg/actuation 2 puff inhalation QID PRN 09/22/25 09/22/25 History aerosol inhaler Shortness Of Breath Or Wheezing amlodipine 2.5 mg tablet 2.5 mg PO DAILY 09/22/25 09/22/25 History atorvastatin 20 mg tablet 20 mg PO DAILY 09/22/25 09/22/25 History baclofen 10 mg tablet 10 mg PO TID PRN muscle spasms 09/22/25 09/22/25 History bupropion HCl 150 mg 24 hr tablet, 150 mg PO DAILY 09/22/25 09/22/25 History extended release bupropion HCl 300 mg 24 hr tablet, 300 mg PO DAILY 09/22/25 09/22/25 History extended release buspirone 10 mg tablet 10 mg PO BID 09/22/25 09/22/25 History hydrochlorothiazide 12.5 mg tablet 12.5 mg PO DAILY 09/22/25 09/22/25 History hydroxyzine HCl 25 mg tablet 25 mg PO TID PRN Anxiety 09/22/25 09/22/25 History pregabalin 200 mg capsule 200 mg PO BID 09/22/25 09/22/25 History sertraline 100 mg tablet 200 mg PO DAILY 09/22/25 09/22/25 History trazodone 100 mg tablet 200 mg PO HS 09/22/25 09/22/25 History umeclidinium 62.5 mcg-vilanterol 1 inh inhalation DAILY 09/22/25 09/22/25 History 25 mcg/actuation powdr for inhalation (Anoro Ellipta) acetaminophen 500 mg tablet 1,000 mg (2 x 500 mg) PO Q8H 30 10/01/25 Rx (Tylenol Extra Strength) days #180 tabs apixaban 2.5 mg tablet (Eliquis) 2.5 mg PO BID 30 days #60 tabs 10/01/25 Rx ergocalciferol (vitamin D2) 1,250 1,250 mcg PO Q7D@0900 30 days #4 10/01/25 Rx mcg (50,000 unit) capsule caps oxycodone 5 mg tablet 5 - 10 mg (1 - 2 x 5 mg) PO Q4H 10/01/25 Rx PRN pain 30 days #14 tabs polyethylene glycol 3350 17 gram 17 g PO DAILY #14 ea 10/01/25 Rx oral powder packet (Miralax) sennosides 8.6 mg-docusate sodium 1 tab PO QAM #30 tabs 10/01/25 Rx 50 mg tablet (Senokot-S) Hospital Stay Data Consultations 09/22/25 03:16 ED Decision to Admit Stat 09/22/25 08:00 Consult Orthopedic Surgery Routine Procedures Performed Operation Date: 09/22/25 11:00 Actual Procedures p Left Trochanteric Femoral Nail(Left) - Ayad Reza, Diagnostic Imagining Performed 09/22/25 FL hip LT 2-3V Routine 09/22/25 02:07 CT cervical spine wo con Stat CT head/brain wo con Stat 09/22/25 02:34 CT hip LT wo con Stat Pending Results Patient Have Any Pending Studies at Discharge: No Discharge Instructions Given to Patient (Per Discharging Provider) General Orthopedic Discharge Instructions Activity: WBAT Diet: You may resume previous diet. Medications: 1. Narcotic You will likely be sent home from the hospital with a prescription for the narcotic pain medication. Take it as needed. Side effects most commonly include nausea and constipation 2. Resume previous home medications unless otherwise instructed Dressing Care: If there is a soft dressing in place then leave the dressing intact for 5 days. On the you may remove the dressing and leave the stitches open to air or cover them with band-aids. Keep the incision clean and dry If there is a hard splint then leave it in place until your follow-up visit in 2 weeks Showering: If you have a soft dressing you may shower right after the surgery but do not get the dressing wet. After the dressing is removed on the 5th day then you can get the stitches wet in the shower, but do not soak or scrub them. Let the soapy shower water run over the stitches and pat them dry. If you have a hard splint, cover it in a plastic bag and keep it dry. Do not remove it until the follow up appointment. Things To Watch For: 1. Drainage from the incision site that occurs more than one week after your surgery. 2. Increased redness at the incision site. 3. Fever above 102 degrees Fahrenheit. 4. Unusual chest pain or shortness of breath. 5. Call [facility] at with any of the above problems. Follow-Up Visit: Please make arrangements to follow-up with Dr. Reza team approximately 2 weeks after your day of surgery for progress check and staple/suture removal. If you have any questions call Total Time Total Time Spent Total Time Spent (In Minutes): 45
== END 2025-10-01 14:45 | DRG 481 ==
LOC: ED 02:00 → SUATTDRO 05:04 → 3W 05:04